=== PATIENT | male | born 1935 | race Caucasian/White ===

== ENCOUNTER → 2016-06-18 | Outpatient (CLI) | payer MEDICARE, OTHER ==
[~2016-06-18] VITALS: Ht 177.8 cm; Wt 108.9 kg
[~2016-06-18] MED LIST: /ESOM40CA; /ESOM40CA OR; ACET65TA OR; ALLO100T OR; ALLO10TA PO; ASPI81TA85 PO; BABY81CH PO; BRIM1OPD OS; CALC600T10; CALCIUM WITH VIT D PO; CEFU500T5; COMB0.2S OS; COMBIGAN OPTH OS; COMBIVENT; DORZ2SOL5 OS; DULCOLAX PO; DUONSOL NEB; FERR325T OR; FURO80TA2 PO; HUMA75IN2 SC; IBUP600T OR; IPRASOL4 INH; LASI40TA PO; LEVA500T PO; LEVO750T PO; LIDOCAINE 2% INJ 100 MG/5 ML SDV (FOR ANES.) As Ordered ONE; LOPR1TAB6 PO; MAG-TAB; METO-207 PO; METO50TA2 PO; MILKSUS OR; MILKSUS PO; MULTIVIT; NEXI40CA PO; NORCOTAB PO; NOVO70VL SC; NOVOINJ3 SC; NOVOLOG 70/30 SC; NS 1,000 ML IV SCH; NYAM10003 TOP; POLYSACCHARIDE IRON COMPLEX 150 MG; POTA10CA2; POTA10TA16 PO; PRAV40TA PO; PRAV40TA2 PO; PRED20TA; PROPOFOL 200 MG/20 ML VIAL As Ordered ONE; TOPROL XL PO; TORS100T PO; TYLE325T5 PO; VICO5TAB OR; XALA0.002 OS; XALATAN OU; ZYLO300T
--- NOTE | 2016-06-18 07:52 | ROOR ---
Patient Name: Siddhartha Gore Procedure Date: 06/18/2016 7:33 AM Date of : 1935 Age: 81 Room: [facility] Gender: Male Note Status: Finalized Procedure: Colonoscopy Indications: High risk colon cancer surveillance: Personal history of colon cancer Providers: Marc RUBIN MD Referring MD: GOPI SEO JR, MD Requesting Provider: Medicines: Monitored Anesthesia Care Complications: No immediate complications. Estimated blood loss: None. Procedure: Pre-Anesthesia Assessment: - The heart rate, respiratory rate, oxygen saturations, blood pressure, adequacy of pulmonary ventilation, and response to care were monitored throughout the procedure. The Colonoscope was introduced through the sigmoid colostomy and advanced to the cecum, identified by appendiceal orifice and ileocecal valve. The colonoscopy was performed without difficulty. The patient tolerated the procedure well. The quality of the bowel preparation was good. Findings: (EXAM: Complete, PREP:Adequate) Two sessile polyps were found in the hepatic flexure and ascending colon. The polyps were 3 to 5 mm in size. These polyps were removed with a cold snare. Resection and retrieval were complete. Multiple medium-mouthed diverticula were found at 30 cm proximal to the stoma. The exam was otherwise without abnormality. Impression: - Two 3 to 5 mm polyps at the hepatic flexure and in the ascending colon, removed with a cold snare. Resected and retrieved. - Diverticulosis in the area at 30 cm proximal to the stoma. - The examination was otherwise normal. Recommendation: - Repeat colonoscopy in 1 year for surveillance based on personal history of colon cancer. - (USE EGD SCOPE) Marc Rubin MD Marc RUBIN MD 06/18/2016 7:52:18 AM This report has been signed electronically. Number of Addenda: 0 Note Initiated On: 06/18/2016 7:33 AM Estimated Blood Loss: Estimated blood loss: none.
[2016-06-18 08:15] VITALS: BP 157/77
== END | disposition home or self-care (01) ==
LOC: M OPP 06:33
PROVIDERS: ATTEND Internal Medicine Gastroenterology
DX: Z08 Encounter for follow-up examination after completed treatment for malignant neoplasm (principal); Z85.038 Personal history of other malignant neoplasm of large intestine; D12.3 Benign neoplasm of transverse colon; D12.2 Benign neoplasm of ascending colon; K57.30 Diverticulosis of large intestine without perforation or abscess without bleeding; I10 Essential (primary) hypertension; E78.00 Pure hypercholesterolemia, unspecified; E11.9 Type 2 diabetes mellitus without complications; R12 Heartburn; M19.90 Unspecified osteoarthritis, unspecified site; N28.9 Disorder of kidney and ureter, unspecified; Z87.891 Personal history of nicotine dependence; Z79.899 Other long term (current) drug therapy; Z79.82 Long term (current) use of aspirin; Z79.4 Long term (current) use of insulin

== ENCOUNTER → 2016-12-18 | Outpatient (CLI) | payer MEDICARE, OTHER ==
[~2016-12-18] MED LIST changes: +LEVA1TAB2 PO; -LEVA500T PO; -LIDOCAINE 2% INJ 100 MG/5 ML SDV (FOR ANES.) As Ordered ONE; -METO-207 PO; +METO1TAB7 PO; -METO50TA2 PO; +METO50TA7 PO; -NS 1,000 ML IV SCH; -PROPOFOL 200 MG/20 ML VIAL As Ordered ONE; -XALA0.002 OS; +XALA0.007 OS
--- NOTE | 2016-12-18 10:41 | RADONC ---
RADIATION ONCOLOGY PROGRESS NOTE DATE: 12/18/2016 CHART NUMBER: [id number] DIAGNOSIS: Rectosigmoid cancer STAGE: II A, T3N0M0. ECOG PERFORMANCE STATUS: 0. FOLLOWUP NOTE: Mr. Gore is an 81-year-old white male with the diagnosis of a stage II A, T3N0M0, moderately differentiated adenocarcinoma of the rectosigmoid who is presenting to us today for followup visit almost 6 years post completion of external beam radiation therapy. The patient presents today reporting that he is being routinely followed with Dr. Ibarra and is undergoing colonoscopies on a routine basis through his office. He also reports no complaints at this time related to his radiation therapy or disease. He is having no urinary or bowel difficulties and no bone pain. REVIEW OF SYSTEMS: The patient's review of systems is noncontributory. Denies nausea, vomiting, fevers, chills, night sweats, diplopia, headaches, anxiety or depression, anorexia, weight loss, visual disturbances, chest pain, urinary or bowel difficulties, bone pain, or neurological problems. PHYSICAL EXAMINATION: The patient is a well-developed, well-nourished male in no acute distress. HEENT exam is normocephalic, atraumatic. Extraocular movements are intact. There is no palpable cervical, supraclavicular, infraclavicular, axillary, or inguinal lymphadenopathy present. Lungs are clear to auscultation and percussion. Heart has a regular rate and rhythm. Abdomen reveals no masses or discharge. His colostomy site is free of infection. Rectal examination reveals a normal anal sphincter tone. Skeletal examination reveals no tenderness to pressure or percussion of the bony skeleton. Extremities reveal no clubbing, cyanosis, or edema. Neurologic exam is grossly intact, as is the remainder of the physical examination. ASSESSMENT: The patient is clinically stable at this point. He is now 6 years post therapy and since he is being followed and managed so closely by Dr. Ibarra I am discharging from our followup except on a p.r.n. basis. cc: MD Shahana Bunn MD Collins Kellogg, Jr, MD David Reindl, MD MTDD
== END ==
LOC: M ONCR 09:43
PROVIDERS: ATTEND Radiology Radiation Oncology
DX: C19 Malignant neoplasm of rectosigmoid junction (principal)

== ENCOUNTER → 2017-04-16 | Outpatient (CLI) | payer MEDICARE, OTHER | LOC: M RAD 12:26 | DX: I87.312 Chronic venous hypertension (idiopathic) with ulcer of left lower extremity (principal) | CPT/HCPCS: 93971 ==

== ENCOUNTER 2017-05-16 11:43 | Emergency (ER) | payer MEDICARE, OTHER ==
[2017-05-16 13:27] LABS: HEMATOCRIT 43.1 % (42.0-52.0); MEAN CORPUSCULAR HEMOGLOBIN 31.4 pg (27.0-33.0); MEAN CORPUSCULAR HGB CONC 32.5 g/dl (32.0-36.5); MEAN CORPUSCULAR VOLUME 96.6 fl (80.0-96.0); PLATELET COUNT, AUTOMATED 122 10^3/uL (150-450); RED BLOOD COUNT 4.46 10^6/uL (4.30-6.10); RED CELL DISTRIBUTION WIDTH 13.6 % (11.5-14.5); WHITE BLOOD COUNT 5.4 10^3/uL (4.0-10.0)
[2017-05-16 13:39] LABS: TOTAL PROTEIN,RANDOM URINE 30.4 MG/DL (0.0-12.0)
[2017-05-16 13:55] LABS: ANION GAP 2 MEQ/L (8-16); BLOOD UREA NITROGEN 23 MG/DL (7-18); CALCIUM LEVEL 9.3 MG/DL (8.8-10.2); CARBON DIOXIDE LEVEL 36 MEQ/L (21-32); CHLORIDE LEVEL 103 MEQ/L (98-107); CPK CREATINE PHOSPHOKINASE 82 U/L (39-308); CREATININE FOR GFR 0.89 MG/DL (0.70-1.30); GLOMERULAR FILTRATION RATE > 60.0 (>35); GLUCOSE, FASTING 89 MG/DL (70-100); POTASSIUM SERUM 4.3 MEQ/L (3.5-5.1); SODIUM LEVEL 141 MEQ/L (136-145); TROPONIN I 0.02 NG/ML (< 0.10)
[2017-05-16 14:01] LABS: MB/CK RELATIVE INDEX 2.43 (< OR =4)
[2017-05-16] MEDS: cloNIDine 0.1 MG TAB PO (14:57)
== END 2017-05-16 15:02 | disposition home or self-care (01) ==
LOC: M ED 11:43
DX: I10 Essential (primary) hypertension (principal); R00.1 Bradycardia, unspecified; I44.0 Atrioventricular block, first degree; I45.10 Unspecified right bundle-branch block; E11.9 Type 2 diabetes mellitus without complications; N18.3 Chronic kidney disease, stage 3 (moderate); K21.9 Gastro-esophageal reflux disease without esophagitis; Z85.038 Personal history of other malignant neoplasm of large intestine; Z87.891 Personal history of nicotine dependence; Z79.82 Long term (current) use of aspirin; Z79.4 Long term (current) use of insulin; Z79.899 Other long term (current) drug therapy
CPT/HCPCS: 93005

== ENCOUNTER 2017-07-29 06:40 | Day surgery (SDC) | payer MEDICARE, OTHER ==
[2017-07-29] MEDS: NS 1,000 ML IV (07:30)
[2017-07-29 07:45] LABS: BEDSIDE GLUCOSE 94 MG/DL (83-110)
[2017-07-29] MEDS ORDERED: METOPROLOL SUCC *XL* 25MG TAB (TopROL *XL*) As Ordered (07:48)
[2017-07-29] MEDS ORDERED: PROPOFOL 200 MG/20 ML VIAL As Ordered (07:48)
[2017-07-29] MEDS ORDERED: LIDOCAINE 2% INJ 100 MG/5 ML SDV (FOR ANES.) As Ordered (07:48)
[2017-07-29] MEDS ORDERED: METOPROLOL SUCC (TopROL XL) 100MG *XL* TAB PO (08:00)
[2017-07-29] MEDS ORDERED: METOPROLOL TART 25 MG TABLET As Ordered (08:45)
[2017-07-29] MEDS: METOPROLOL SUCC *XL* 25MG TAB (TopROL *XL*) PO (08:52)
== END 2017-07-29 09:22 | disposition home or self-care (01) ==
LOC: M OPP 06:40
DX: Z08 Encounter for follow-up examination after completed treatment for malignant neoplasm (principal); Z85.038 Personal history of other malignant neoplasm of large intestine; Z86.010 Personal history of colon polyps; D12.0 Benign neoplasm of cecum; K57.30 Diverticulosis of large intestine without perforation or abscess without bleeding; I12.9 Hypertensive chronic kidney disease with stage 1 through stage 4 chronic kidney disease, or unspecified chronic kidney disease; E78.5 Hyperlipidemia, unspecified; R60.0 Localized edema; E11.9 Type 2 diabetes mellitus without complications; M10.9 Gout, unspecified; K21.9 Gastro-esophageal reflux disease without esophagitis; K22.70 Barrett's esophagus without dysplasia; D64.9 Anemia, unspecified; M19.90 Unspecified osteoarthritis, unspecified site; H40.9 Unspecified glaucoma; H35.30 Unspecified macular degeneration; F32.9 Major depressive disorder, single episode, unspecified; R56.9 Unspecified convulsions; Z93.3 Colostomy status; Z92.3 Personal history of irradiation; Z92.21 Personal history of antineoplastic chemotherapy; J45.909 Unspecified asthma, uncomplicated; G47.30 Sleep apnea, unspecified; N18.9 Chronic kidney disease, unspecified; N40.1 Benign prostatic hyperplasia with lower urinary tract symptoms; Z87.891 Personal history of nicotine dependence; Z79.82 Long term (current) use of aspirin; Z79.899 Other long term (current) drug therapy; Z79.4 Long term (current) use of insulin
CPT/HCPCS: 44389

== ENCOUNTER 2018-07-17 11:50 | Day surgery (SDC) | payer MEDICARE, OTHER ==
[~2018-07-17] VITALS: Ht 170.2 cm; Wt 111.1 kg
[~2018-07-17 11:50] MED LIST changes: -/ESOM40CA; -/ESOM40CA OR; +ALLO100T; +CALC600T57 PO; +CLON-412; +CLONI1TA PO; +IPRA0.00 INH; -IPRASOL4 INH; +KEFL500C17 PO; +LASI40TA9 PO; +LOSA50TA5; +LOSA50TA5 PO; +METO1TAB33; +MILK120011 PO; -MILKSUS PO; +NEXI1CAP3; +NEXI1CAP3 OR; +NEXI40CA; +NOVOINJ2; +POTA10TA16; +PRAV40TA2; +PREDOPD; +VITA200016 PO; +oxygen
[2018-07-17] MEDS ORDERED: NS 1,000 ML IV ONE (14:00)
[2018-07-17] MEDS ORDERED: fentaNYL 100 MCG/2 ML INJECTION (J3010) As Ordered ONE (14:46)
[2018-07-17] MEDS ORDERED: PROPOFOL 200 MG/20 ML VIAL As Ordered ONE (14:46)
[2018-07-17] MEDS ORDERED: LIDOCAINE 2% INJ 100 MG/5 ML SDV (FOR ANES.) As Ordered ONE (14:46)
--- NOTE | 2018-07-17 15:03 | ROOR ---
Patient Name: Siddhartha Gore Procedure Date: 07/17/2018 2:39 PM Date of : 1935 Age: 83 Room: [facility] Gender: Male Note Status: Finalized Procedure: Upper GI endoscopy Indications: Surveillance for malignancy due to personal history of Tong's esophagus Providers: Marc IBARRA MD Referring MD: GOPI SEO JR, MD Requesting Provider: Medicines: Monitored Anesthesia Care Complications: No immediate complications. Procedure: Pre-Anesthesia Assessment: - The heart rate, respiratory rate, oxygen saturations, blood pressure, adequacy of pulmonary ventilation, and response to care were monitored throughout the procedure. The Endoscope was introduced through the mouth, and advanced to the second part of duodenum. The upper GI endoscopy was accomplished without difficulty. The patient tolerated the procedure well. Findings: There were esophageal mucosal changes consistent with long-segment Tong's esophagus present in the lower third of the esophagus. The maximum longitudinal extent of these mucosal changes was 6 cm in length. Mucosa was biopsied with a cold forceps for histology randomly in the lower third of the esophagus and from 35 to 40 cm from the incisors. A total of 4 specimen bottles were sent to pathology. The exam was otherwise without abnormality. Impression: - Esophageal mucosal changes consistent with long-segment Tong's esophagus. Biopsied. - The examination was otherwise normal. Recommendation: - Telephone endoscopist for pathology results in 2 weeks. - Repeat upper endoscopy for surveillance based on pathology results. - Repeat upper endoscopy in 3 years for surveillance. - Continue present medications. Marc Ibarra MD Marc IBARRA MD 07/17/2018 3:02:38 PM Electronically signed by Marc IBARRA MD Number of Addenda: 0 Note Initiated On: 07/17/2018 2:39 PM Estimated Blood Loss: Estimated blood loss: none.
[2018-07-17 15:23] VITALS: BP 162/94
== END 2018-07-17 15:25 | disposition home or self-care (01) ==
LOC: M OPP 11:50
PROVIDERS: ATTEND Internal Medicine Gastroenterology
DX: K22.70 Barrett's esophagus without dysplasia (principal); K21.9 Gastro-esophageal reflux disease without esophagitis; G47.30 Sleep apnea, unspecified; Z79.82 Long term (current) use of aspirin; Z79.4 Long term (current) use of insulin; Z79.899 Other long term (current) drug therapy
CPT/HCPCS: 43239; 88305; J3010

== ENCOUNTER 2019-04-11 10:53 | Inpatient (IN) | payer MEDICARE, OTHER ==
[~2019-04-11] VITALS: Ht 172.7 cm; Wt 108.1 kg
[~2019-04-11 10:53] MED LIST changes: +PANTOPRAZOLE 40MG INJ (PROTONIX) (C9113) IV SCH
[2019-04-11] MEDS ORDERED: TORS100T PO (11:15)
[2019-04-11] MEDS ORDERED: METO1TAB33 PO (11:15)
[2019-04-11] MEDS ORDERED: K-TA10TA2 PO (11:25)
[2019-04-11 11:28] LABS: HEMOGLOBIN 17.1 g/dl (13.5-17.5); MEAN CORPUSCULAR HEMOGLOBIN 30.5 pg (27.0-33.0); MEAN CORPUSCULAR HGB CONC 32.3 g/dl (32.0-36.5); MEAN CORPUSCULAR VOLUME 94.6 fl (80.0-96.0); PLATELET COUNT, AUTOMATED 221 10^3/uL (150-450); WHITE BLOOD COUNT 7.7 10^3/uL (4.0-10.0)
[2019-04-11] MEDS ORDERED: NS 500 ML IV ONE ×2 (11:45→12:45)
[2019-04-11] MEDS ORDERED: ONDANSETRON 4MG/2ML VIAL (J2405) IV ONE (11:45)
[2019-04-11 11:57] LABS: LYMPHOCYTES 18 % (16-44); MONOCYTES 12 % (0-5); NEUTROPHILS 60 % (28-66); PLATELET ESTIMATE NORMAL (NORMAL)
[2019-04-11 11:58] LABS: ANISOCYTOSIS 1+
[2019-04-11 12:05] LABS: ALBUMIN 3.4 GM/DL (3.2-5.2); BILIRUBIN,DIRECT 0.3 MG/DL (0.0-0.2); MB/CK RELATIVE INDEX 5.69 (< OR =4); TOTAL PROTEIN 7.6 GM/DL (6.4-8.2); TROPONIN I 0.38 NG/ML (< 0.10)
--- NOTE | 2019-04-11 14:55 | REP ---
CT ABDOMEN AND PELVIS WITHOUT CONTRAST: CT abdomen and pelvis performed without oral or IV contrast. Sagittal and coronal reconstruction images are performed. Comparison made with prior study 08/09/2014. Visualized lung bases demonstrate mild interstitial fibrotic change. There is a stable cyst at the dome of the liver on the right. Gallbladder is mild to moderately distended with no wall edema. I do not see evidence of biliary dilatation. Spleen is normal in size with no intrinsic abnormality. Left adrenal adenoma is unchanged. Right adrenal gland is normal. Pancreas is grossly unremarkable. Multiple bilateral renal cysts are again noted, largest cysts are on the right reaching a maximum diameter of about 11 cm. There is no hydronephrosis bilaterally. Urinary bladder is mildly distended and grossly unremarkable except for a diverticulum on the left. There is mild atherosclerotic calcification of the abdominal aorta without aneurysm. No adenopathy, free air, or free fluid is seen. Right ostomy is seen in the anterior abdominal wall and there is a parastomal hernia. There is small bowel obstruction at that level. Proximal small bowel is moderately dilated with fair and fluid. Distal small bowel is collapsed. No bowel wall thickening is seen. Focal fibrotic scarring is seen at the inferior aspect of the ostomy and hernia. The hernia contains fat and collapsed small bowel. It also contains exiting nondistended colon. Presacral soft tissue is unchanged when compared to the prior CT exam. There are degenerative changes of the spine. IMPRESSION: Right anterior abdominal wall ostomy contains a hernia. The hernia contains fat and nondistended small bowel. There is small bowel obstruction at that point with more proximal small bowel loops moderately distended. No free air or free fluid. Other chronic findings as discussed above are stable. Electronically Signed by aXvier Chen MD 04/12/2019 05:52 P
[2019-04-11] MEDS: NS 500 ML IV ONE ×2 (15:08→15:09)
[2019-04-11] MEDS ORDERED: CLONI1TA PO (15:20)
[2019-04-11] MEDS ORDERED: IPRATROPIUM 0.5MG/ALBUTEROL 2.5MG INH SOL UD 3ML (DUONEB)(J7620) INH PRN (15:45)
[2019-04-11] MEDS ORDERED: ONDANSETRON 4MG/2ML VIAL (J2405) IV PRN (15:45)
--- NOTE | 2019-04-11 15:56 | HPEPDOC ---
General Date of Admission 04/11/19 Date of Service: Apr 11, 2019 Chief Complaint The patient is a 83-year-old male admitted with a reason for visit of Abdominal Bloating. Source: Patient Exam Limitations: No limitations Timing/Duration: Other Severity: Severe Associated Symptoms: Other History of Present Illness This is 83 years old white male with past medical history of rectal carcinoma status post chemotherapy, status post abdominal perineal resection, diabetes mellitus, COPD, hyperlipidemia, hypertension, anemia, asthma, PAD, obesity, urethral structure. Diastolic heart failure. C KD stage III, alcohol, tobacco abuse in the past, GERD, gout, LIANNA on CPAP, cataracts parastomal hernia status post repair has not been feeling well since last 5 days and has not eaten anything since last 5 days. He just feels bloating. Today, he started vomiting, black tarry emesis and was brought to ER where he was diagnosed with possible SBO secondary to parastomal hernia. Also, patient was found to be in atrial afibrillation, which is new onset. Patient denies any chest pain, shortness of breath, syncope, dizziness, etc. Home Medications Scheduled Allopurinol (Allopurinol) 100 Mg Tab, 100 MG PO BID, (Reported) Aspirin (Aspir 81) 81 Mg Tab, 81 MG PO DAILY, (Reported) Calcium Carbonate/Vitamin D3 (Calcium 600-Vit D3 200 Tablet) 1 Tab Tab, 1 TAB PO DAILY, (Reported) Clonidine Hcl (Clonidine HCl) 0.1 Mg Tablet, 0.1 MG PO BID, (Reported) Esomeprazole Magnesium (Nexium) 40 Mg Cap, 40 MG PO DAILY, (Reported) Metoprolol Succinate (Metoprolol Succinate) 100 Mg Tab.er.24h, 150 MG PO DAILY, (Reported) Potassium Chloride (K-Tab ER) 10 Meq Tablet.er, 10 MEQ PO DAILY, (Reported) Pravastatin Sodium (Pravastatin Sodium) 40 Mg Tab, 40 MG PO QHS, (Reported) Torsemide (Torsemide) 100 Mg Tablet, 50 MG PO DAILY, (Reported) Scheduled PRN Ipratropium/Albuterol Sulfate (Iprat-Albut 0.5-3(2.5) mg/3 ml) 1 Franklyn Franklyn, 1 FRANKLYN INH QIDP PRN for SHORTNESS OF BREATH, (Reported) Allergies Coded Allergies: No Known Allergies (Unverified , 07/16/18) Past Medical History Medical History Rectal carcinoma status post chemotherapy and abdominal and perineal resection, diabetes mellitus insulin-dependent, COPD, hyperlipidemia, hypertension, anemia, asthma, PAD, obesity, urethra structure chronic diastolic heart failure. 6. CK D, stage III. Tobacco dependence, history of alcohol abuse, glaucoma, GERD, gout, obstructive sleep apnea on CPAP, cataracts, parastomal hernia status post repair Surgical History Abdominal perineal resection with right-sided his ostomy in 2012. Tonsillectomy. Ostomy hernia repair, cataract surgeries and right sided inguinal hernia repair Family History Significant Family History: No pertinent family hx Social History * Smoker: former Smoker Alcohol: other (heavy drinker in the past) Drugs: denies A-FIB/CHADSVASC A-FIB History Current/History of A-Fib/PAF?: Yes Current PO Anticoag Therapy: No Review of Systems Constitutional: Denies: Chills, Fever, Malaise, Night Sweats, Weakness, Fatigue, Weight Loss, Lethargy, Other Eyes: Denies: Pain, Vision change, Conjunctivae inflammation, Eyelid inflammation, Redness, Other ENT: Denies: Head Aches, Ear Pain, Dysphagia Skin: Denies: Rash, Lesions, Jaundice, Bruising, Itching, Dry, Breakdown, Nail Changes, Other Pulmonary: Denies: Dyspnea, Cough, Pleuritic Chest Pain, Other Symptoms Cardiovascular: Denies: Chest Pain, Palpitations, Orthopnea, Paroxysmal Noc. Dyspnea, Edema, Lt Headedness, Other Symptoms Gastrointestinal: Reports: Vomiting, Other Symptoms (. Coffee ground emesis) Genitourinary: Denies: Dysuria, Frequency, Incontinence, Hematuria, Retention, Other Symptoms Hematologic: Denies: Bruising, Bleeding Excessively, Petecchia, Purpura, Enlarged Lymph Nodes, Other Hematologic Endocrine: Denies: Polydipsia, Polyphagia, Polyuria, Heat Intolerance, Cold Intolerance, Other Endocrine Sx Musculoskeletal: Denies: Neck Pain, Back Pain, Shoulder Pain, Arm Pain, Hand Pain, Leg Pain, Foot Pain, Joint Pain, Muscle Pain, Spasms, Other Symptoms Neurological: Denies: Weakness, Numbness, Incoordination, Change in speech, Confusion, Seizures, Other Symptoms Psych: Denies: Mood Normal, Anxiety, Depression, Memory Issues, Thoughts of Self Harm, Anger, Thoughts of Harming Other, Other Psych Physical Examination General Exam: Positive: Alert, Cooperative Eye Exam: Positive: PERRLA, Conjunctiva & lids normal ENT Exam: Positive: Atraumatic, Mucous membr. moist/pink Neck Exam: Positive: Supple Chest Exam: Positive: Clear to auscultation, Normal air movement Heart Exam: Positive: Tachycardic, Irregular Rhythm Telemetry: Positive: Atrial fibrillation Abdomen Exam: Positive: Other (distended abdomen. Tenderness on ostomy. Bowel sounds present, probably stool in ostomy seen) Extremity Exam: Positive: Normal pulses, Other (chronic discoloration of bilateral lower extremities) Skin Exam: Positive: Nl turgor and temperature Neuro Exam: Positive: Other (, mostly all extremities) Psych Exam: Positive: Mental status NL, Mood NL Vital Signs Vital Signs Date Time Temp Pulse Resp B/P (MAP) Pulse Ox O2 Delivery O2 Flow Rate FiO2 04/11/19 15:00 129 86/54 (65) 94 Nasal Cannula 4.0 04/11/19 13:30 18 04/11/19 11:04 99.2 Laboratory Data Labs 24H Laboratory Tests 2 04/11/19 11:18: Nucleated Red Blood Cells % (auto) 0.0, Neutrophils 60, Band Neutrophils 10, Lymphocytes (Manual) 18, Monocytes (Manual) 12H, Anisocytosis 1+, Platelet Estimate NORMAL, Total Bilirubin 1.0, Direct Bilirubin 0.3H, Aspartate Amino Transf (AST/SGOT) 19, Alanine Aminotransferase (ALT/SGPT) 17, Alkaline Phosphatase 57, Total Creatine Kinase 123, Creatine Kinase MB 7.0H, Creatine Kinase MB Relative Index 5.69H, Troponin I 0.38H, Total Protein 7.6, Albumin 3.4, Albumin/Globulin Ratio 0.81L, Lipase 73 04/11/19 11:20: POC Glucose (Misc Panel) 144H, POC Sodium (Misc Panel) 138, POC Potassium (Misc Panel) 3.1L, POC Chloride (Misc Panel) 90L, POC Total CO2 (Misc Panel) 31.0H, POC Blood Urea Nitrogen (Misc Panel 61H, POC Ionized Calcium (Misc Panel) 4.2L, POC Creatinine (Misc Panel) 3.2H, POC Hematocrit (Misc Panel) 54.0H 04/11/19 12:11: Lactic Acid Level 1.9 CBC/BMP Laboratory Tests 04/11/19 11:18 Problems (1) SBO (small bowel obstruction) Status: Acute Problem Text: CAT scan of the abdomen and pelvis shows right atrial abdominal wall ostomy with hernia hernia contents effect and nondistended small bowel. Small bowel obstruction at the point with more proximal small bowel loops moderately distended. No free air. Patient. WBC count 7.7, hemoglobin 17.1, hematocrit 53. Electrolytes are normal except potassium is 3.1, BUN 61, creatinine 3.20, troponin 0.38. Lactic acid is 1.9, direct bilirubin 0.0 0.3, troponin 0.38 , Heart rate 123, respiratory rate of 18, and blood pressure 99/54 Admit patient to ICU for close observation nothing by mouth Bed rest IV fluids normal saline at 70 mL per hour Protonix 40 mg IV every 12 hours Surgical consult was called from ED, Dr. Myers of aware Continue NG suctioning as to intermittent wall suction Further, as per surgical recommendations DVT prophylaxis with bilateral SCDs as patient might require surgery (2) New onset atrial fibrillation Status: Acute Problem Text: Since patient is hypotensive. He did get receive some IV fluids in ED and will start gentle hydration with normal saline 70 mL per hour Unable to start beta terri or calcium channel terri secondary to his hypertension and cannot restart digitalization secondary to renal failure Will start patient on amiodarone with loading dose of 150 mg followed by IV protocol for maintenance for 24 hours Telemetry monitoring Intake and output Serial troponins Echocardiogram Dr. Farnsworth was called from ED for consultation and he is aware Note patient not a candidate for anticoagulation secondary to possible tarry color emesis secondary to possible GI bleed and also recommended by cardiology to wait 24 hours before deciding about anticoagulation (3) Hypokalemia Status: Acute Problem Text: Potassium supplement will be provided by IV route Repeat electrolytes in a.m. (4) Acute kidney injury superimposed on CKD Status: Acute Problem Text: Acute kidney injury on CK D, stage III Patient's BUN is 61, creatinine 3.2 Gentle IV hydration Will request nephrology consult in a.m. Plan / VTE VTE Prophylaxis Ordered?: Yes SEBAS CATES MD Apr 11, 2019 15:56
[2019-04-11] MEDS ORDERED: GLUCOSE 4 GM CHEW TABLET PO PRN (16:00)
[2019-04-11] MEDS ORDERED: DEXTROSE 50% 50 ML SYRINGE IV PRN (16:00)
[2019-04-11] MEDS ORDERED: NS 1,000 ML IV SCH (16:00)
[2019-04-11] MEDS ORDERED: GLUCAGON FOR INJ 1 MG VIAL (J1610) SC PRN (16:00)
[2019-04-11] MEDS ORDERED: AMIODARONE HCL 150 MG in IV 1 EA IV SCH (16:00)
[2019-04-11] MEDS ORDERED: AMIODARONE HCL 360 MG in IV 1 EA IV SCH (16:10)
[2019-04-11 16:13] LABS: MAGNESIUM LEVEL 1.9 MG/DL (1.8-2.4)
[2019-04-11 16:45] VITALS: BP 138/66
[2019-04-11] MEDS: KCL 10MEQ/100ML SWI (KRUN) 10 MEQ in IV 1 EA IV SCH ×2 (16:49→20:17)
[2019-04-11] MEDS: HumaLOG INSULIN (NovoLOG) PER UNIT SC SCH (18:00)
[2019-04-11 18:45] VITALS: BP 108/53
[2019-04-11] MEDS: PANTOPRAZOLE 40MG INJ (PROTONIX) (C9113) IV SCH (20:17)
[2019-04-11 20:22] VITALS: BP 114/65
--- NOTE | 2019-04-11 20:43 | ECGEPIP ---
[facility] - ED Test Date: 2019-04-11 Pat Name: KIESHA CH Department: Room: - Gender: Male Certified Medicine Aide: : 1935 Requested By: Cholo Ayon Order Number: [id number] Reading MD: Lisette Daley Measurements Intervals [place] Rate: 128 P: AK: 0 QRS: 38 QRSD: 129 T: 39 QT: 348 QTc: 508 Interpretive Statements ATRIAL FIBRILLATION WITH RAPID VENTRICULAR RESPONSE RIGHT BUNDLE BRANCH BLOCK ST DEPRESSION, CONSIDER SUBENDOCARDIAL INJURY CLINICAL CORRELATION 05/16/17 SINUS RHYTHM Electronically Signed on 04-11-2019 20:43:28 EST by Lisette Daley
[2019-04-11 21:00] VITALS: BP 92/51
[2019-04-11] MEDS: AMIODARONE HCL 360 MG in IV 1 EA IV SCH (21:44)
[2019-04-11 22:00] VITALS: BP 104/68
[2019-04-11 23:09] VITALS: BP 130/62
[2019-04-12] VITALS (23 sets, daily range): BP systolic 91–136; BP diastolic 50–82
[2019-04-12 05:03] LABS: HEMATOCRIT 47.3 % (42.0-52.0); HEMOGLOBIN 15.5 g/dl (13.5-17.5); MEAN CORPUSCULAR HEMOGLOBIN 31.3 pg (27.0-33.0); MEAN CORPUSCULAR HGB CONC 32.8 g/dl (32.0-36.5); MEAN CORPUSCULAR VOLUME 95.4 fl (80.0-96.0); PLATELET COUNT, AUTOMATED 180 10^3/uL (150-450); RED BLOOD COUNT 4.96 10^6/uL (4.30-6.10); WHITE BLOOD COUNT 7.4 10^3/uL (4.0-10.0)
[2019-04-12 05:32] LABS: ALBUMIN 2.6 GM/DL (3.2-5.2); BILIRUBIN,TOTAL 0.5 MG/DL (0.2-1.0); CALCIUM LEVEL 8.3 MG/DL (8.8-10.2); CREATININE FOR GFR 2.95 MG/DL (0.70-1.30); GLOMERULAR FILTRATION RATE 21.9 (>35); TOTAL PROTEIN 6.8 GM/DL (6.4-8.2); TROPONIN I 0.48 NG/ML (< 0.10)
[2019-04-12] MEDS: HumaLOG INSULIN (NovoLOG) PER UNIT SC SCH ×4 (05:45→17:56)
[2019-04-12] MEDS ORDERED: KCL 40MEQ in NS 1000ML 1,000 ML IV SCH (06:15)
[2019-04-12] MEDS: KCL 10MEQ/100ML SWI (KRUN) 10 MEQ in IV 1 EA IV SCH ×4 (07:50→20:11)
[2019-04-12] MEDS: PANTOPRAZOLE 40MG INJ (PROTONIX) (C9113) IV SCH ×2 (07:50→20:11)
[2019-04-12] MEDS ORDERED: NS 1,000 ML IV SCH (08:00)
[2019-04-12] MEDS: METOPROLOL 5 MG/5 ML VIAL IV SCH ×3 (08:27→20:10)
[2019-04-12] MEDS: AMIODARONE HCL 360 MG in IV 1 EA IV SCH (08:55)
--- NOTE | 2019-04-12 09:23 | CR ---
DATE OF CONSULTATION: 04/12/2019 INDICATION: Atrial fibrillation with rapid ventricular response, elevated troponin. HISTORY OF PRESENT ILLNESS: Mr. Gore is an 83-year-old man who has no prior history of atrial fibrillation or coronary artery disease who presented to [facility] ([facility]) yesterday after approximately 4 or 5 days history of abdominal bloating, nausea and vomiting. It turned out that there is evidence for small bowel obstruction with parastomal hernia, he has a colostomy after treatment for rectal carcinoma several years ago. Besides bowel obstruction, he was also found to be in atrial fibrillation with rapid ventricular response and was quite tachycardic on admission to the emergency room (ER). He was initially treated mostly with rehydration because he was felt to be in also in acute renal failure, likely prerenal in nature. His heart rate came down a little, but eventually he was started on IV amiodarone by Dr. Farr in an attempt to accomplish better rate control. It was felt that he would not tolerate beta-blockers or calcium channel blockers and digoxin was not felt to be a good option on account of underlying renal insufficiency. He did well and this morning he tells me is feeling better. He has a nasogastric (NG) tube placed that has been draining stomach contents and he feels overall better. The abdominal bloating is no longer present. He denies any dyspnea and he claims that he never had any sensation of palpitations and he never had any chest discomfort. He reports that he was seen by his primary care physician Dr. Maher approximately 3 to 4 weeks ago and to the best of his understanding he was fine. There was no mentioning about problems with his heart rate. PAST MEDICAL HISTORY: 1. History of rectal carcinoma status post abdominoperineal resection of rectum with chemotherapy. 2. Type 2 diabetes. 3. Chronic obstructive pulmonary disease (COPD). 4. Hyperlipidemia. 5. Hypertension. 6. Peripheral artery disease (PAD). 7. Obesity. 8. Chronic renal insufficiency. 9. Gastroesophageal reflux disease (GERD). 10. Gout. 11. Obstructive sleep apnea (LIANNA) on C-PAP. PAST SURGICAL HISTORY: 1. Rectal surgery with additional abdominal surgery dealing with the ostomy. 2. Tonsillectomy. 3. Bilateral cataract surgery. 4. Right-sided inguinal hernia repair. FAMILY HISTORY: Father of cancer, the patient is not sure about what kind. His mother of old age after trauma in her late 90s. ALLERGIES: No allergies. OUTPATIENT MEDICATIONS: Allopurinol 100 twice a day, aspirin 81 a day, calcium with vitamin D, clonidine 0.1 mg twice a day, Nexium 40 mg a day, metoprolol succinate 150 mg a day, potassium 10 mEq a day, pravastatin 40 mg a day, and torsemide 50 mg a day. SOCIAL HISTORY: The patient is a former smoker. He believes that he quit about 6-7 years ago, but smoked about 50 years about a pack a day. He reports history of heavy alcohol in the past, but has not drank in quite a few years. 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 No drug use. REVIEW OF SYSTEMS: He denies any recent fever or chills. He had nausea abd vomiting for several days above. No chest pain. No palpitations. No dizziness or near/syncope. No chest pain. No prior history of coronary artery disease. No peripheral edema lately. The rest of review of systems is negative. PHYSICAL EXAMINATION: Mr. Gore is an elderly man who appears to be in good spirits, lying flat in the hospital bed in no distress. Last set of vital signs with blood pressure 128/82. Heart rate has been around 100 and 110s. Atrial fibrillation. He is afebrile. Saturation 96% on 3 liters of oxygen by nasal cannula. He has a nasogastric tube in place that is draining stomach contents. Weight was recorded as 104 kg. He is alert, oriented and appropriate. His jugular venous pulse (JVP) is not high. Lungs are clear. Good air movement. I would do not appreciate wheezing, crackles or rhonchi. Heart exam reveals irregularly irregular rhythm. I do not appreciate any gallop, rub or murmur. Abdomen is distended but soft. There is an ostomy in the right lower quadrant. Bowel sounds are present. Extremities are free of edema. There is very prominent stasis dermatitis on both shins. Peripheral edema is minimal. Peripheral pulses are detectable. LABORATORIES: As of this morning, sodium 142, potassium 3.0, BUN 79, creatinine 2.95, GFR 22, glucose 114, magnesium 2.0. He had three sets of troponins - 0.38, 0.53 and 0.48. CK was 123. There was no chest x-ray performed. The CT of the abdomen revealed findings as dictated above. ECG performed in the emergency room reveals atrial fibrillation with ventricular rate of 128 beats per minute. There is right bundle branch block with repolarization abnormalities that are rather diffuse. ASSESSMENT/PLAN: Mr. Gore is an 84-year-old man who has no prior history of atrial fibrillation or coronary artery disease who presents with bowel obstruction. Simultaneously, he was found to have acute renal failure which is almost certainly due to prerenal cause and atrial fibrillation with RVR. He was given amiodarone that led to slowing down his heart rate to about 110's. But unfortunately because of the duration of the arrhythmia is uncertain and he conceivably may convert into sinus rhythm and he has not been anticoagulated I believe it is probably better to discontinue the medication and attempt rate control with beta blockers only. We are somewhat limited by the inability to take oral medications and consequently I will give him Lopressor intravenously every 6 hours. It is certainly not optimal. If we have trouble I would still use digoxin, even for a short run, but in the long duration it is certainly not a good option. I am going to give him Lovenox as once a day dosing, approximately 0.75 mg/kg to provide some form of anticoagulation. I do not believe that we can provide him with any longer acting anticoagulants because there is still a potential for needing surgery, even though from surgical perspective I believe they plan to treat him conservatively. Overall, I am hoping that he will improve fairly rapidly. Echocardiogram is pending. Second cardiac issue is troponin elevation. It is probably on account of the renal insufficiency and tachycardia. He has no anginal symptoms, but will get a followup electrocardiogram and follow him clinically. MARLA
[2019-04-12] MEDS ORDERED: ENOXAPARIN 80 MG/0.8 ML SYRINGE (J1650) SC SCH (10:00)
--- NOTE | 2019-04-12 10:21 | IPNPDOC ---
Subjective Date Seen The patient was seen on 04/12/19. Subjective Chief Complaint/HPI Slightly better. Distal has a nasogastric tube in, abdominal pain is slightly decreased General: Denies: ROS Unobtainable, Chills, Night Sweats, Fatigue, Malaise, Normal Appetite, Other Symptoms Constitutional: Denies: Chills, Fever, Malaise, Night Sweats, Weakness, Fatigue, Weight Loss, Lethargy, Other Eyes: Denies: Pain, Vision change, Conjunctivae inflammation, Eyelid infla mmation, Redness, Other ENT: Denies: Head Aches, Ear Pain, Dysphagia, Sinus Congestion, Post Nasal Drip, Sore Throat, Epistaxis, Other Symptoms Skin: Denies: Rash, Lesions, Jaundice, Bruising, Itching, Dry, Breakdown, Nail Changes, Other Pulmonary: Denies: Dyspnea, Cough, Pleuritic Chest Pain, Other Symptoms Cardiovascular: Denies: Chest Pain, Palpitations, Orthopnea, Paroxysmal Noc. Dyspnea, Edema, Lt Headedness, Other Symptoms Gastrointestinal: Reports: Abdominal Pain Genitourinary: Denies: Dysuria, Frequency, Incontinence, Hematuria, Retention, Other Symptoms Hematologic: Denies: Bruising, Bleeding Excessively, Petecchia, Purpura, Enla rged Lymph Nodes, Other Hematologic Endocrine: Denies: Polydipsia, Polyphagia, Polyuria, Heat Intolerance, Cold Intolerance, Other Endocrine Sx Musculoskeletal: Denies: Neck Pain, Back Pain, Shoulder Pain, Arm Pain, Hand Pain, Leg Pain, Foot Pain, Joint Pain, Muscle Pain, Spasms, Other Symptoms Neurological: Denies: Weakness, Numbness, Incoordination, Change in speech, Confusion, Seizures, Other Symptoms Psych: Denies: Mood Normal, Anxiety, Depression, Memory Issues, Thoughts of Self Harm, Anger, Thoughts of Harming Other, Other Psych Objective Physical Examination Neck Exam: Positive: Supple Chest Exam: Positive: Clear to auscultation, Normal air movement Heart Exam: Positive: Tachycardic, Irregular Rhythm Telemetry: Positive: Atrial fibrillation Abdomen Exam: Positive: Other (distended abdomen. Tenderness on ostomy. Bowel sounds present, probably stool in ostomy seen) Extremity Exam: Positive: Normal pulses, Other (chronic discoloration of bilateral lower extremities) Skin Exam: Positive: Nl turgor and temperature Neuro Exam: Positive: Other (, mostly all extremities) Psych Exam: Positive: Mental status NL, Mood NL Assessment /Plan Problems (1) New onset atrial fibrillation Status: Acute Problem Text: Patient was seen by Dr gonsales today His heart rate has decreased with amiodarone, but is still in 110s Amiodarone was DC'd , He is been started on beta blockers, metoprolol 25mg 6 hours with good ventricular rate control Anticoagulation with Lovenox 0.75 mg/kg every 24 hours started as per cardiology recommendation Patient is nothing by mouth secondary to his by mouth. Will change meds to by mouth once he is surgically cleared Continue present care (2) Acute kidney injury superimposed on CKD Status: Acute Problem Text: Patient with history of CKD. 3. He presents with acute kidney injury Gentle IV hydration Potassium replacement done Nephrology consult has been requested (3) Hypokalemia Status: Acute Problem Text: Corrected today Repeat lab at 2 PM (4) SBO (small bowel obstruction) Status: Acute Problem Text: Patient is nothing by mouth and is nothing by mouth NG tube in place Surgical consult is pending Further recommendation as per surgery Plan/VTE VTE Prophylaxis Ordered?: Yes VS, I&O, 24H, Fishbone Vital Signs/I&O Vital Signs Date Time Temp Pulse Resp B/P (MAP) Pulse Ox O2 Delivery O2 Flow Rate FiO2 04/12/19 09:44 98 109/64 (79) 95 Nasal Cannula 2.0 04/12/19 08:00 98.2 18 I&O- Last 24 Hours up to 6 AM 04/12/19 05:59 Intake Total 2214 ml Output Total 3675 ml Balance -1461 ml Laboratory Data 24H LABS Laboratory Tests 2 04/11/19 11:18: Nucleated Red Blood Cells % (auto) 0.0, Neutrophils 60, Band Neutrophils 10, Lymphocytes (Manual) 18, Monocytes (Manual) 12H, Anisocytosis 1+, Platelet Estimate NORMAL, Magnesium Level 1.9, Total Bilirubin 1.0, Direct Bilirubin 0.3H, Aspartate Amino Transf (AST/SGOT) 19, Alanine Aminotransferase (ALT/SGPT) 17, Alkaline Phosphatase 57, Total Creatine Kinase 123, Creatine Kinase MB 7.0H, Creatine Kinase MB Relative Index 5.69H, Troponin I 0.38H, Total Protein 7.6, Albumin 3.4, Albumin/Globulin Ratio 0.81L, Lipase 73 04/11/19 11:20: POC Glucose (Misc Panel) 144H, POC Sodium (Misc Panel) 138, POC Potassium (Misc Panel) 3.1L, POC Chloride (Misc Panel) 90L, POC Total CO2 (Misc Panel) 31.0H, POC Blood Urea Nitrogen (Misc Panel 61H, POC Ionized Calcium (Misc Panel) 4.2L, POC Creatinine (Misc Panel) 3.2H, POC Hematocrit (Misc Panel) 54.0H 04/11/19 12:11: Lactic Acid Level 1.9 04/11/19 18:00: Bedside Glucose (Misc Panel) 143H 04/11/19 19:50: Troponin I 0.53#H 04/11/19 23:40: Bedside Glucose (Misc Panel) 113H 04/12/19 04:49: Troponin I 0.48H, Nucleated Red Blood Cells % (auto) 0.0, Anion Gap 13, Glomerular Filtration Rate 21.9L, Calcium Level 8.3L, Magnesium Level 2.0, Total Bilirubin 0.5, Aspartate Amino Transf (AST/SGOT) 19, Alanine Aminotransferase (ALT/SGPT) 13, Alkaline Phosphatase 43L, Total Protein 6.8, Albumin 2.6#L, Albumin/Globulin Ratio 0.62L CBC/BMP Laboratory Tests 04/11/19 11:18 04/12/19 04:49 SEBAS CATES MD Apr 12, 2019 10:21
[2019-04-12] MEDS: ENOXAPARIN 80 MG/0.8 ML SYRINGE (J1650) SC SCH (11:45)
[2019-04-12] MEDS: KCL 20MEQ in NS 1000ML 1,000 ML IV SCH (13:04)
[2019-04-12 14:19] LABS: AMORPHOUS SEDIMENT MODERATE (NEGATIVE); APPEARANCE, URINE CLEAR (CLEAR); BACTERIA, URINE AUTO NEGATIVE (NEGATIVE); BILIRUBIN, URINE AUTO NEGATIVE (NEGATIVE); BLOOD, URINE BLOOD NEGATIVE (NEGATIVE); COLOR, URINE AMBER (YELLOW); GLUCOSE, URINE (UA) AUTO NEGATIVE (NEGATIVE); KETONE, URINE AUTO TRACE mg/dL (NEGATIVE); LEUKOCYTE ESTERASE, URINE AUTO 1+ (NEGATIVE); NITRITE, URINE AUTO NEGATIVE (NEGATIVE); PROTEIN, URINE AUTO NEGATIVE (NEGATIVE); RBC, URINE AUTO 2 /HPF (0-3); SPECIFIC GRAVITY URINE AUTO 1.024 (1.002-1.035); SQUAMOUS EPITHELIAL CELL UR AU 1 /HPF (0-6); UROBILINOGEN, URINE AUTO 0.2 mg/dL (0.0-2.0); WBC, URINE AUTO 9 /HPF (0-3)
[2019-04-12 16:37] LABS: ALBUMIN 2.7 GM/DL (3.2-5.2); CALCIUM LEVEL 8.3 MG/DL (8.8-10.2); CREATININE FOR GFR 2.32 MG/DL (0.70-1.30); GLOMERULAR FILTRATION RATE 28.8 (>35); PHOSPHORUS LEVEL 3.2 MG/DL (2.5-4.9); POTASSIUM SERUM 3.3 MEQ/L (3.5-5.1)
--- NOTE | 2019-04-12 20:10 | CR ---
DATE OF CONSULTATION: 04/12/2019 CONSULTATION REPORT FOR: Ammon Farr MD REASON FOR CONSULTATION: Acute renal failure superimposed on chronic kidney disease. HISTORY OF PRESENT ILLNESS: Mr. Gore is an 83-year-old gentleman who was admitted to [facility] last evening due to recurrent vomiting for the last three days. His multiple chronic medical problems include a history of hypertension, gout, prior history of rectal carcinoma status post chemotherapy and resection. He has a colostomy. Other problems include type 2 diabetes, chronic obstructive pulmonary disease (COPD), hyperlipidemia, anemia, asthma, peripheral arterial disease, obesity, urethral stricture and diastolic congestive heart failure. He was noticed to have a small-bowel obstruction due to parastomal hernia and is currently being treated with nasogastric (NG) tube suctioning. The patient was also noticed to have atrial fibrillation with rapid ventricular rate and was treated with intravenous amiodarone. He is noticed to have acute renal failure, due to which a nephrology consultation was requested and the patient is seen this morning on his bedside. PAST MEDICAL AND SURGICAL HISTORY: Significant for: 1. History of type 2 diabetes. 2. Hypertension. 3. Hyperlipidemia. 4. History of rectal carcinoma, status post abdominoperineal resection and colostomy. 5. History of urethral stricture. 6. History of peripheral arterial disease. 7. Anemia. 8. Asthma. 9. Obesity. 10. History of chronic diastolic congestive heart failure. 11. History of gastroesophageal reflux disease. 12. History of glaucoma. 13. History of gout. 14. Obstructive sleep apnea. 15. History of parastomal hernia. 16. History of cataracts. PAST SURGICAL HISTORY: Significant for: 1. Abdominoperineal resection with right-sided ostomy in 2011. 2. History of tonsillectomy. 3. Cataract surgery. 4. Right-sided inguinal hernia repair. FAMILY HISTORY: Negative for end-stage renal disease. PERSONAL AND SOCIAL HISTORY: The patient is a former smoker and does have a history of heavy alcohol use in the past. Denies any drug use. ALLERGIES: He has no known drug allergies. MEDICATIONS: Home medications include: - allopurinol 100 mg twice a day - aspirin 81 mg daily - calcium carbonate with vitamin D one tablet daily - clonidine 0.1 mg twice a day - Nexium 40 mg daily - metoprolol 100 mg ER one and a half tablet daily - potassium chloride 10 mEq daily - pravastatin 40 mg daily - torsemide 50 mg daily REVIEW OF SYSTEMS: The patient reports frequent vomiting for the last three days prior to admission. He denies any abdominal pain or diarrhea at present. His colostomy was not working well for the last couple of days. Ears, nose and throat are unremarkable. Cardiovascular system is significant for atrial fibrillation which was new onset and rapid ventricular rate. He has been treated with amiodarone and still in atrial fibrillation on the monitor. The patient denies any chest pain or dyspnea at present. Respiratory system is negative for cough or hemoptysis. Gastrointestinal (GI) system is significant for poorly functioning colostomy and recurrent vomiting for the last three days. He is currently being treated for small-bowel obstruction with nasogastric (NG) tube suctioning. He has a parastomal hernia which is likely the cause of his small-bowel obstruction. Genitourinary () system significant for acute renal failure. The patient denies any history of kidney stones, dysuria or flank pain. Musculoskeletal system is significant for a history of gout. He denies any leg edema. Endocrine system is significant for type 2 diabetes. He denies any thyroid problems. Hematological system is negative for any easy bruising or excessive bleeding. He is not on any anticoagulation so far. Psychosocial system is negative for depression or anxiety. PHYSICAL EXAMINATION: Elderly gentleman laying in the bed without any acute distress and has a nasogastric tube in place. Temperature 98.2 degrees Fahrenheit, heart rate 98 per minute and respiratory rate 18 per minute. Blood pressure 109/64 mmHg and oxygen saturation 95% on two liters of oxygen. His head is atraumatic. Neck is supple and jugular venous distention (JVD) difficult to be assessed. There are no oral thrush or ulcers. Heart sounds are tachycardiac and irregular in rhythm. Lungs sound clear to auscultation. Abdomen is soft, protuberant, and colostomy is functioning. Extremities without any cyanosis or clubbing. Neurologically, he is awake, alert and oriented times three. LABORATORY DATA: Today's laboratories show sodium 142, potassium 3.0, CO2 31, BUN 79 and creatinine 2.95. Glucose 114 and calcium 8.3. Lactic acid 1.9. Total protein 6.8 and albumin 2.6. Troponin 0.38, 0.53 and 0.48 respectively. Hemoglobin is 15.5 and hematocrit 47.3. WBC count is 7.4. The patient had a prior to abdominal CT scan done which showed a parastomal hernia and distended small bowel loops but no hydronephrosis. PROBLEMS: 1. Acute renal failure superimposed on chronic kidney disease. The patient has a known serum creatinine of 1.1 to 1.2 mg/dL at baseline according to laboratories from his primary care physician's office. Acute renal failure is most likely prerenal as the patient reports frequent vomiting for three days and has a small bowel obstruction with nasogastric (NG) tube suctioning. He also had rapid atrial fibrillation which may have contributed to decreased blood flow and worsening kidney function. I would recommend gentle IV fluid hydration with about 70 mL of normal saline per hour and monitor renal function at least once or twice a day. 2. Hypokalemia, most likely related to frequent vomiting and the patient has already received intravenous potassium supplement. His electrolytes will be checked again later today. 3. Rapid atrial fibrillation. He is still in atrial fibrillation but ventricular rate seems to be better. He has been treated with amiodarone. Thank you for involving me in the care of Mr. Gore. I will follow him along with you.
[2019-04-12] MEDS: NYSTATIN 100,000 UNITS/GM TOPICAL PWD 15 GM TOP SCH (20:12)
[2019-04-13] VITALS (13 sets, daily range): BP systolic 99–140; BP diastolic 58–84
[2019-04-13] MEDS: METOPROLOL 5 MG/5 ML VIAL IV SCH ×4 (01:18→20:39)
[2019-04-13] MEDS: KCL 20MEQ in NS 1000ML 1,000 ML IV SCH ×2 (03:18→20:41)
[2019-04-13 05:45] LABS: BASO # 0.1 10^3/uL (0.0-0.2); BASO % 0.6 % (0.0-1.0); EOS # 0.1 10^3/uL (0.0-0.5); EOS % 1.4 % (0.0-3.0); HEMATOCRIT 48.2 % (42.0-52.0); HEMOGLOBIN 15.7 g/dl (13.5-17.5); LYMPH # 1.2 10^3/uL (1.5-5.0); LYMPH % 15.1 % (24.0-44.0); MEAN CORPUSCULAR HEMOGLOBIN 31.3 pg (27.0-33.0); MEAN CORPUSCULAR HGB CONC 32.6 g/dl (32.0-36.5); MEAN CORPUSCULAR VOLUME 96.2 fl (80.0-96.0); MONO % 12.2 % (0.0-5.0); NEUTROPHILS # 5.5 10^3/uL (1.5-8.5); NEUTROPHILS % 69.9 % (36.0-66.0); PLATELET COUNT, AUTOMATED 177 10^3/uL (150-450); RED BLOOD COUNT 5.01 10^6/uL (4.30-6.10); WHITE BLOOD COUNT 7.8 10^3/uL (4.0-10.0)
[2019-04-13] MEDS: HumaLOG INSULIN (NovoLOG) PER UNIT SC SCH ×4 (06:00→18:00)
[2019-04-13 06:17] LABS: ALBUMIN 2.6 GM/DL (3.2-5.2); BILIRUBIN,TOTAL 0.7 MG/DL (0.2-1.0); CALCIUM LEVEL 8.2 MG/DL (8.8-10.2); CREATININE FOR GFR 1.89 MG/DL (0.70-1.30); GLOMERULAR FILTRATION RATE 36.5 (>35); POTASSIUM SERUM 3.4 MEQ/L (3.5-5.1); TOTAL PROTEIN 7.1 GM/DL (6.4-8.2)
--- NOTE | 2019-04-13 07:58 | ECHO ---
DATE OF STUDY: 04/12/2019 REFERRING PHYSICIAN: Dr. Ammon Farr INDICATION: Atrial fibrillation. Height: 173 cm. WEIGHT: 104 kg. DIMENSIONS: IVS: 1.5 LV: 4.9 LVPW: 1.5 LA: 5.0 Aorta: 3.6 IVC: 2.4 FINDINGS: The study is of poor technical quality due to the patient's body habitus and difficulty with positioning. He is in atrial fibrillation with heart rate fluctuating between 80 and 140 beats per minute. Left ventricle is normal size. There is moderate left ventricular hypertrophy. I am unable to reliably estimate ejection fraction, but it appears probably normal or near normal based on very limited views. I certainly cannot rule out any significant wall motion abnormality with any degree of certainty. The right ventricle was poorly visualized. Both atria appear severely enlarged. Aortic valve is sclerotic but has three cusps and preserved mobility. Mitral valve exhibits mild degenerative abnormalities but mobility seems preserved. Tricuspid and pulmonic valves were poorly seen, but grossly appear normal. Pericardial fat pad is noted. Inferior vena cava was dilated. Aortic root was normal. Aortic arch and abdominal aorta were not seen. Doppler interrogation reveals no significant aortic and mitral valvular disease. Same applies for pulmonic valve. There was trace tricuspid insufficiency, but the quality of TR jet was not sufficient to adequately estimate pulmonary artery pressure. Evaluation of diastolic function is inconclusive due to underlying atrial fibrillation. CONCLUSIONS: 1. Study is of poor technical quality, the patient is in atrial fibrillation. 2. Normal LV size with moderate LVH and probably normal or near normal systolic function based on very limited views. 3. No hemodynamically significant valvular disease. 4. Likely elevated central venous pressure but unable to estimate pulmonary artery pressure. 5. Severe biatrial enlargement under COMMENTS: Subacute bacterial endocarditis (SBE) prophylaxis is not recommended.
--- NOTE | 2019-04-13 08:05 | IPN ---
DATE: 04/12/2019 HISTORY: The patient was admitted yesterday with new onset atrial fibrillation with an uncontrolled rate and a several-day history of nausea and vomiting with a CT suggesting a bowel obstruction in a parastomal hernia. He has been seen by cardiology and his tachycardia is mildly to moderately controlled today, though he remains in atrial fibrillation. Vital signs show that his pulse has been recorded between 104 and 128. His blood pressure is good and his pulse oximetry is in the low to mid 90s. He has been afebrile since admission. Intake and output shows that he has had 2200 in. He has had 3000 out of his NG tube yesterday. Today, he has had 725 additional mL with 900 of urine output. 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 Heart exam shows an irregular rhythm and he remains tachycardiac. The lungs are fairly clear. The abdomen is obese. His ostomy in the right lower quadrant shows a small amount of soft stool at the stoma, but there is little to nothing within the bag. He does have a few bowel sounds present within the abdomen. There is some mild tenderness to palpation, it is not well localized. LABORATORY STUDIES: Today, show a white count of 7, hemoglobin 15, hematocrit of 47 and a platelet count of 180,000. Chemistry profile shows a sodium of 142, potassium 3.3, chloride 100, CO2 of 32, BUN of 77, creatinine 2.3 and glucose of 99. The albumin was 2.7. IMPRESSION: The patient reports no air through his stoma today with little to no stool. His NG output has diminished and he appears somewhat more comfortable. The abdomen is soft. RECOMMENDATIONS: I would recommend continuing the NG tube to low intermittent suction at this point. He should remain on IV hydration. I will give him a little bit longer to see if he will resolve this bowel obstruction spontaneously while the patient's cardiac rhythm is addressed. Unfortunately, any surgery to address his hernia is likely to be very difficult given his several prior procedures and the fact that he has had mesh placed at least once and perhaps twice before. If he does not show signs of resolving this obstruction, then surgical intervention however may be necessary. MARLA
--- NOTE | 2019-04-13 08:35 | CR ---
DATE OF CONSULTATION: 04/11/2019 REASON FOR CONSULTATION: Bowel obstruction. HISTORY OF THE PRESENT ILLNESS: The patient is an 83-year-old man who had undergone an abdominoperineal resection for rectal cancer back in 2011. In 2012 to address a parastomal hernia and incisional hernia, he had his ostomy moved from the left side to the right with placement of mesh for his midline incisional hernia. He had another surgical procedure for a bowel obstruction from an incarcerated parastomal hernia in July of 2014. The patient reports that he has apparently been doing well recently. However, in the last few days, he developed the feeling of fullness with some bloating and abdominal discomfort. He developed vomiting on the morning of 04/11/2019, which continued during the day. He noticed diminished output from his ostomy. In the emergency department, he was found to be in atrial fibrillation with a heart rate of about 150. A CT scan was obtained of the abdomen which showed a parastomal hernia containing several short segments of small bowel with evidence for obstruction at this level. He was admitted by the hospitalist service to the intensive care unit (ICU) for management of the new onset atrial fibrillation and I was consulted regarding his bowel obstruction. Home medications are listed as allopurinol, aspirin, calcium with vitamin D, clonidine esomeprazole metoprolol succinate, potassium, pravastatin, and torsemide. He has NO KNOWN ALLERGIES recorded. SURGICAL HISTORY: He has had an abdominoperineal resection in 2012. He had an ostomy relocated IN 2012 and a bowel obstruction addressed with repair of a parastomal hernia in 2014. He has undergone a tonsillectomy. He has also had cataract surgeries and a right inguinal hernia repair. Medical history is significant for his rectal carcinoma though he has shown no evidence of recurrence. He has diabetes mellitus, type 2. He has chronic obstructive pulmonary disease. He has hyperlipidemia and hypertension. He has a history of asthma. He has peripheral arterial disease. He has significant obesity. He has chronic kidney disease, stage III. He has past history of alcohol abuse. He has glaucoma, gastroesophageal reflux disease, and gout. He has reportedly a history of obstructive sleep apnea on continuous positive airway pressure (CPAP). Family history is not pertinent in this elderly gentleman for this problem. SOCIAL HISTORY: He is a former smoker and has been a heavy drinker of alcohol in the past. Review of systems revealed no recent chest pain or palpitations. He denies cough, wheezing or sputum production. He has no dysuria or hematuria. He has had no history of deep venous thrombosis (DVT) or pulmonary embolus. He has no significant new bone or joint problems. He denies any recent weight gain or weight loss. He has no history of seizure or stroke. He does report that his stoma has been working fairly well recently until this episode. Physical examination reveals a pleasant, bearded gentleman lying quietly in the hospital bed. He is alert and oriented. He has a nasogastric tube in the right nares and this is draining some turbid yellow-brown fluid. Mucous membranes are somewhat tacky. Neck is without palpable mass. Heart exam reveals a rapid irregular tachycardia. Lungs show generally clear breath sounds though the breath sounds are distant bilaterally. The abdomen is quite obese. He has scarring consistent with prior surgery. There is a stoma in the right mid to lower abdomen with a minimal amount of stool right at the orifice of the stoma but nothing in the bag. He has some bowel sounds present. I do not detect any distinct tympany to percussion. I cannot feel a hernia at the stoma. There is some mild tenderness to palpation in the mid abdomen. Laboratory studies show a white count of 8, hemoglobin of 17, hematocrit of 53 and a platelet count of 221,000. Differential count showed 60% neutrophils, 10 bands, 18 lymphocytes, 12 monocytes. Chemistry profile in the emergency department showed a sodium of 138, potassium 3.1, chloride 90, CO2 of 31, BUN of 61, creatinine 3.2 and a glucose of 144. Other chemistries showed normal liver function tests with a troponin 0.38, total protein 7.6 and an albumin of 3.4. Lipase was 73. CT scan imaging I reviewed personally. He has significant surgical changes consistent with his abdominoperineal resection. The descending colon crosses across the abdomen from the left midabdomen to the right side to his stoma. There is a small parastomal hernia containing fat and several small loops of small bowel and there does appear to be some distension of the small bowel on the proximal side of this. There is what appears to be a second smaller hernia closer to the midline at the same level as the ostomy. He has multiple large renal cysts bilaterally. There is no evidence of free air or free fluid within the abdomen. IMPRESSION: 1. Small bowel obstruction secondary to parastomal hernia containing small bowel. 2. Atrial fibrillation new onset. Other medical problems include diabetes mellitus, chronic obstructive pulmonary disease (COPD), obstructive sleep apnea, morbid obesity, hypertension, hyperlipidemia, asthma, chronic kidney disease stage III, tobacco abuse, gastroesophageal reflux, gout, and glaucoma. RECOMMENDATIONS: At this point, I would recommend trying to bring his atrial fibrillation under better control. His obstruction is being addressed with a nasogastric tube and this has been putting out quite a bit. He should remain certainly on IV hydration. I would recommend that we follow him for the next 48 hours or so to see if he will resolve this obstruction on his own. I would encourage him to be out of bed as able if his cardiac condition will allow. His surgery to address this parastomal hernia would likely be quite difficult given the several surgical procedures he has had previously with placement of mesh in 2013. The patient had an opportunity to ask questions and desires to proceed as I have outlined. I will continue to follow him until we resolve his surgical issue. MARLA
[2019-04-13] MEDS: PANTOPRAZOLE 40MG INJ (PROTONIX) (C9113) IV SCH ×2 (08:50→20:39)
[2019-04-13] MEDS: ENOXAPARIN 80 MG/0.8 ML SYRINGE (J1650) SC SCH (08:50)
[2019-04-13] MEDS: KCL 10MEQ/100ML SWI (KRUN) 10 MEQ in IV 1 EA IV SCH ×4 (08:51→12:44)
--- NOTE | 2019-04-13 09:04 | IPN ---
DATE OF SERVICE: 04/15/2019 Mr. Gore is in good spirits today. He feels better than yesterday, even though he still has some bloating in his abdomen. He does not seem to be passing much of anything through his colostomy. He denies any chest pain or sensation of palpitations. Unfortunately, his heart rate remains uncontrolled with the current regimen. His typical heart rate is around 110-120 range. He does not seem to be symptomatic from it. Vital signs: Blood pressure 122/58. Heart rate as above. He is afebrile. Saturation is 90% on room air and up to 93% on 2 liters of oxygen. He is alert and oriented and appropriate. His jugular venous pressure (JVP) is difficult to tar kettle runner with his body habitus but does not appear high. Lungs are reasonably clear with somewhat diminished breath sounds over both bases but no crackles, wheezing, or rhonchi. Heart examination: Irregularly irregular rhythm without obvious murmur or gallop. Abdomen is distended but softer than yesterday. Bowel sounds are detectable. Nasogastric (NG) tube is still in place. Extremities: Have very prominent stasis dermatitis skin changes but no edema per se. LABORATORIES: Sodium 143, potassium 3.4, BUN 69, creatinine 1.9, and glucose 89. Complete blood count (CBC): Hemoglobin 15.7, hematocrit 48, and platelet count 177,000. ASSESSMENT AND PLAN: Mr. Gore is 83-year-old man who presented with bowel obstruction. He has been treated conservatively. He also was found to be in atrial fibrillation with rapid ventricular response, which is a new abnormality. We temporary anticoagulated him with Lovenox with adjusted dose for his age and renal function. I am trying to accomplish rate control without using amiodarone because I do not necessarily want to cardiovert him back to sinus rhythm. We are currently using metoprolol intravenous (IV) every 6 hours, which have not been completely successful, and I am going to add digoxin. This is just a temporizing solution until we will see what his renal function stabilizes at. I am going to give him load as just 0.75 mg over the course of 12 hours. Then depending on effect, will decide on further doses if necessary. We will see how his gastrointestinal (GI) tract does. So far, it does not seem that he is responding terribly well to conservative management.
[2019-04-13] MEDS: DIGOXIN INJ 0.5 MG/2 ML AMP (J1160) IV SCH ×3 (09:19→20:40)
[2019-04-13] MEDS: NYSTATIN 100,000 UNITS/GM TOPICAL PWD 15 GM TOP SCH ×2 (09:19→20:40)
--- NOTE | 2019-04-13 17:53 | IPN ---
DATE: 04/13/2019 Mr. Gore is seen this morning on his bedside. He remains with nasogastric tube and low intermittent suction. He is receiving IV fluid at 75 mL per hour. He remains in atrial fibrillation on the monitor. The patient denies any dyspnea or chest pain. He still feels that his abdomen is bloated and colostomy is not functioning. PHYSICAL EXAMINATION: Temperature 98.2 degrees Fahrenheit, heart rate 112 per minute and respiratory rate 20 per minute. Blood pressure 116/70 mmHg and oxygen saturation 92% on room air. Head is atraumatic. Nasogastric tube is in place. Neck is supple and without jugular venous distention (JVD) or thyroid enlargement. Heart sounds irregular and tachycardiac and lungs sound clear to auscultation. Abdomen is soft and somewhat bloated and colostomy nonfunctioning. Bowel sounds are present. Extremities: Without any cyanosis or clubbing. Neurologically, he is awake, alert and at his baseline mentation. Today's labs show WBC count 7.8, hemoglobin 15.7 and hematocrit 48.2. Platelets 177. Sodium 143, potassium 3.4, CO2 of 31, BUN 69 and creatinine 1.89. Calcium level is 8.2. PROBLEMS: 1. Acute renal failure superimposed on chronic kidney disease. Kidney function gradually improving, and we will continue with IV fluid at 70 mL per hour. He remains with nasogastric tube suctioning and nothing by mouth. 2. Hypokalemia. Potassium level slightly improved, and the patient is receiving potassium chloride 20 mEq in each liter of IV fluid. Electrolytes will be checked again tomorrow morning. 3. Atrial fibrillation with rapid ventricular rate. His ventricular rate is moderately controlled, and he remains on digoxin and beta terri. 4. Small bowel obstruction. The patient remains with nasogastric tube suctioning.
--- NOTE | 2019-04-13 19:31 | IPN ---
DATE: 04/13/2019 HISTORY: The patient presented with a history of abdominal pain with nausea and vomiting. He was found to have new-onset atrial fibrillation with a rapid ventricular response and also a small parastomal hernia with a small bowel obstruction. He is in the intensive care unit (ICU) being treated for the atrial fibrillation and has a nasogastric (NG) tube in place. It was noted today that he had a small amount of air from his ostomy bag, perhaps one bag full, as well as a minimal amount of liquid stool. Vital signs: Show that he has been afebrile. His pulse remains in the 110s to 120s. Blood pressure has been variable between 99 and 138 systolic today. Intake and output shows that yesterday he had 1600 in with 1650 out. He had 1450 out of his G-tube today. Urine output was 600. PHYSICAL EXAMINATION: The patient remains cheerful and alert. He appears comfortable at rest in the bed. Heart exam reveals an irregularly irregular rhythm at about 115. The lungs are generally clear. The abdomen is obese but soft. His ostomy appliance is basically empty. I palpated around his stoma, and I cannot feel the underlying parastomal hernia which is located just lateral to the stoma. There is a little discomfort in the upper abdomen on palpation fairly deeply. Laboratory studies show a white count of 8, hemoglobin 16, hematocrit 48 and a platelet count of 177,000. Chemistry profile shows potassium 3.4, BUN 69 and a creatinine of 1.9. IMPRESSION: Patient has apparently not resolved his bowel obstruction as of yet. He was started on digoxin today to try to continue to manage his atrial fibrillation. PLAN: I spoke with the patient about the potential need for surgery for his parastomal hernia. His surgery is likely to be somewhat difficult given his several prior procedures, but I think it would still be reasonable to consider an attempt at a laparoscopic approach to his hernia. If he has not improved significantly by tomorrow, then I think we will need to talk about the timing for his surgical intervention. This is assuming that his cardiac status is stable for surgery. MARLA
--- NOTE | 2019-04-13 19:41 | IPNPDOC ---
Date Seen The patient was seen on 04/13/19. Progress Note SUBJECTIVE: 83-year-old male with past medical history of hypertension, gout, rectal cancer status post resection and colostomy, diabetes mellitus, COPD, peripheral artery disease and hyperlipidemia was admitted for small bowel obstruction new onset atrial fibrillation and acute kidney injury. Patient was transferred to the ICU due to hypotension along with atrial fibrillation and rapid ventricular response, was treated with IV amiodarone. Patient's small bowel obstruction is being managed conservatively with NG tube placement and IV fluids with somewhat improvement and symptoms and ostomy output. Patient continues to have large output from NG tube and mild to moderate abdominal pain. There is no immediate plan for surgical intervention, acute kidney injury is improving with IV hydration. Patient denies any shortness of breath, chest pain, nausea, vomiting or urinary difficulty at this time. 10 point review of system is negative except for above PHYSICAL EXAMINATION: VITAL SIGNS: Please see below. GENERAL: No distress HEENT: Normocephalic, atraumatic, moist mucous membranes NECK: Supple CARDIOVASCULAR EXAMINATION: S1, S2, systolic murmur appreciated RESPIRATORY EXAMINATION: Clear to auscultation, no wheezing ABDOMINAL EXAMINATION: Soft, mild tenderness, nondistended, hypoactive bowel sounds, ostomy with small amount of liquid stool EXTREMITIES: Range of motion intact SKIN: No rash NEUROLOGICAL EXAMINATION: Alert and oriented 3, no focal deficits PSYCHIATRIC EXAMINATION: Calm and cooperative LABORATORY DATA, IMAGING STUDIES, MICROBIOLOGY: Please see below. ASSESSMENT AND PLAN: 83-year-old male with an extensive past medical history, was admitted for small bowel obstruction, new onset atrial fibrillation and acute kidney injury. PROBLEMS: 1. Small bowel obstruction: Currently being managed conservatively with NG tube and IV fluids, general surgery following. 2. New onset atrial fibrillation: Anticoagulation with Lovenox, rate is suboptimally controlled on IV metoprolol, digoxin has been started by cardiology, remains in A. fib. 3. Acute kidney injury: Likely prerenal from vomiting/decreased by mouth intake due to small bowel obstruction and decreased cardiac output from atrial fibrillation and rapid ventricular response, improving with IV hydration, continue normal saline with potassium at 70 mL per hour, nephrology following. 4. Diabetes mellitus: Continue sliding scale coverage every 6 hours. DVT prophylaxis: On Lovenox. GI prophylaxis: PPI Disposition: Downgrade patient to PCU VS, I&O, 24H, Fishbone Vital Signs/I&O Vital Signs Date Time Temp Pulse Resp B/P (MAP) Pulse Ox O2 Delivery O2 Flow Rate FiO2 04/13/19 14:25 127 04/13/19 14:25 120/67 04/13/19 12:00 98.2 20 92 Room Air 04/13/19 04:00 2.0 I&O- Last 24 Hours up to 6 AM 04/13/19 06:00 Intake Total 1478 ml Output Total 2000 ml Balance -522 ml Laboratory Data 24H LABS Laboratory Tests 2 04/12/19 23:31: Bedside Glucose (Misc Panel) 94 04/13/19 05:27: Immature Granulocyte % (Auto) 0.8, Neutrophils (%) (Auto) 69.9H, Lymphocytes (%) (Auto) 15.1L, Monocytes (%) (Auto) 12.2H, Eosinophils (%) (Auto) 1.4, Basophils (%) (Auto) 0.6, Neutrophils # (Auto) 5.5, Lymphocytes # (Auto) 1.2L, Monocytes # (Auto) 1.0H, Eosinophils # (Auto) 0.1, Basophils # (Auto) 0.1, Nucleated Red Bl ood Cells % (auto) 0.0, Anion Gap 10, Glomerular Filtration Rate 36.5, Calcium Level 8.2L, Total Bilirubin 0.7, Aspartate Amino Transf (AST/SGOT) 16, Alanine Aminotransferase (ALT/SGPT) 15, Alkaline Phosphatase 45, Total Protein 7.1, Albumin 2.6L, Albumin/Globulin Ratio 0.58L 04/13/19 12:30: Bedside Glucose (Misc Panel) 102 04/13/19 18:26: Bedside Glucose (Misc Panel) 78L CBC/BMP Laboratory Tests 04/13/19 05:27 MARK BANKS MD Apr 13, 2019 19:41
--- NOTE | 2019-04-13 21:19 | ECGEPIP ---
[facility] Test Date: 2019-04-13 Pat Name: KIESHA CH Department: Room: [place] [address] Gender: Male [employer]: ALICIA : [id number] Requested By: Chad Farnsworth Order Number: [id number] Reading MD: Marc Rubio Measurements Intervals [place] Rate: 97 P: NC: 0 QRS: 18 QRSD: 129 T: 196 QT: 375 QTc: 477 Interpretive Statements ATRIAL FIBRILLATION WITH ABERRANT CONDUCTION OR VENTRICULAR PREMATURE COMPLEXES RIGHT BUNDLE BRANCH BLOCK ST DEVIATION AND MODERATE T-WAVE ABNORMALITY, CONSIDER LATERAL ISCHEMIA Similar to tracing done 04-11-19 with decreased rate Electronically Signed on 04-13-2019 21:18:33 EST by Marc Rubio
[2019-04-14] VITALS (10 sets, daily range): BP systolic 118–146; BP diastolic 63–99
[2019-04-14] MEDS: KCL 20MEQ in NS 1000ML 1,000 ML IV SCH (00:40)
[2019-04-14] MEDS: METOPROLOL 5 MG/5 ML VIAL IV SCH ×4 (02:52→20:29)
[2019-04-14 05:46] LABS: ALBUMIN 2.7 GM/DL (3.2-5.2); BILIRUBIN,TOTAL 0.8 MG/DL (0.2-1.0); CALCIUM LEVEL 8.4 MG/DL (8.8-10.2); CREATININE FOR GFR 1.35 MG/DL (0.70-1.30); GLOMERULAR FILTRATION RATE 53.9 (>35); MAGNESIUM LEVEL 2.2 MG/DL (1.8-2.4); PHOSPHORUS LEVEL 2.8 MG/DL (2.5-4.9); TOTAL PROTEIN 6.9 GM/DL (6.4-8.2)
[2019-04-14] MEDS: HumaLOG INSULIN (NovoLOG) PER UNIT SC SCH ×5 (05:54→23:49)
[2019-04-14] MEDS ORDERED: DIGOXIN INJ 0.5 MG/2 ML AMP (J1160) IV ONE (08:00)
--- NOTE | 2019-04-14 08:07 | IPN ---
DATE: 04/14/2019 Mr. Gore is feeling well. He is in a good mood and has no specific complaints. Overnight he remained in atrial fibrillation. As the digoxin got into his system, his heart rate slowed down and currently is around 100 on average, but he did have two runs of nonsustained VT that were asymptomatic and not overly fast. Blood pressure 129/76, heart rate around 100. He is afebrile. Saturation 96% on 2 liters of oxygen. He put out about 2 liters of output yesterday and out of it almost 1500 was NG tube drainage. Weight has not been recorded yet. He is alert and oriented in no distress. His JVP is not high. Lungs are clear. Heart exam reveals irregularly irregular rhythm without obvious gallop or rub. Abdomen is soft, still mildly distended. Bowel sounds are decreased but present. There is a lot of air in his colostomy bag. Extremities are free of edema. There is significant stasis dermatitis. Neurologically, he is intact. LABORATORY: Basic metabolic panel - sodium 146, potassium 4.0, BUN 51, creatinine 1.4 for a GFR 54, glucose is 81, albumin is 2.7. CBC - hemoglobin 15.7, hematocrit 48, platelet count 177,000. ASSESSMENT/PLAN: Mr. Gore is an 83-year-old man who presented to the hospital with small bowel obstruction, possibly as a consequence of parastomal hernia. I was involved because he was also in atrial fibrillation with rapid ventricular response. Management is complicated by his inability to take oral medications. Consequently yesterday I gave him digoxin total 0.75 mg in three separate doses. His heart rate is slower, but he had a run of nonsustained VT earlier today with preserved left ventricular systolic function and asymptomatic. It is not as worrisome, but nevertheless, is concerning. I am going to give him one additional dose of digoxin just 0.125 mg today and will obtain level tomorrow. Will continue on IV Lopressor. as far as the anticoagulation is concerned, his renal function is improving, but is not quite normal yet. But I believe we can increase the dose of Lovenox to a full 1 mg/kg daily and if his renal function improves even more, then tomorrow we can give him full dose or even switch him to oral anticoagulant provided surgery believes that there is no need for surgical consideration.
[2019-04-14] MEDS ORDERED: ENOXAPARIN 100MG/1ML SYRINGE (J1650) SC SCH (09:00)
[2019-04-14] MEDS: NYSTATIN 100,000 UNITS/GM TOPICAL PWD 15 GM TOP SCH ×2 (09:41→20:29)
[2019-04-14] MEDS: PANTOPRAZOLE 40MG INJ (PROTONIX) (C9113) IV SCH ×2 (09:41→20:28)
[2019-04-14] MEDS: POTASSIUM CHLORIDE INJ 10 MEQ in NS 0.45% 1,000 ML IV SCH ×2 (09:41→22:12)
--- NOTE | 2019-04-14 09:45 | REP ---
KUB ABDOMEN AND PELVIS: Two KUB films of the abdomen and pelvis performed. Persistent moderately dilated small bowel loops are seen in the abdomen. Recent CT scan 04/11/[address] evidence of small bowel obstruction due to an anterior abdominal wall hernia. Mild scattered air is seen in the nondistended colon diffusely. There is a nasogastric tube in the stomach. Multiple metallic clips overlie the pelvis. IMPRESSION: Persistent moderate small bowel dilatation. Electronically Signed by Xavier Chen MD 04/14/2019 05:35 P
--- NOTE | 2019-04-14 15:14 | IPN ---
DATE OF VISIT: 04/14/2019 Mr. Gore is seen this morning on his bedside. He remains with nasogastric tube hooked to low intermittent suction. He feels that his abdominal bloating is improved. He denies any dyspnea or chest pain. He remains in atrial fibrillation though ventricular rate is much better improved now. On physical exam, temperature 97.6 degrees Fahrenheit, heart rate 90 per minute and respiratory rate 18 per minute. Blood pressure 135/73 mmHg and oxygen saturation 93% on room air. Head is atraumatic. Neck supple and without jugular venous distention (JVD) or thyroid enlargement. Nasogastric tube is in place. Heart sounds are irregular in rhythm and lungs sound clear to auscultation. Abdomen soft and nontender and colostomy has minimal output. Bowel sounds are hypoactive. Extremities have no cyanosis or clubbing. Neurologically, he is awake, alert and oriented times three. Abdominal x-ray done today showed persistent moderate small bowel dilatation, and his labs today showed a sodium level 146, potassium 4.0, CO2 30, BUN 51 and creatinine 1.35. PROBLEMS: 1. Acute renal failure superimposed on chronic kidney disease. Patient has mild chronic kidney disease at baseline. His acute renal failure was felt to be prerenal due to small bowel obstruction and recurrent vomiting. Kidney function has been improving nicely and we will continue with IV fluid for now. 2. Hypernatremia related to IV fluids and nothing by mouth. He was receiving normal saline, which has been stopped, and he is now being switched to half normal saline along with 10 mEq of potassium chloride at 100 mL/h. 3. Hypokalemia. Potassium level has improved and corrected. We will continue with low-dose potassium supplement in his IV fluid. 4. Small bowel obstruction. Patient remains with nasogastric tube suctioning. Repeat x-ray suggestive of persistent small bowel dilatation. 5. Atrial fibrillation with rapid ventricular rate. Ventricular rate is now better controlled. However, he still remains in atrial fibrillation and is being followed by cardiology. He was given digoxin today.
--- NOTE | 2019-04-14 16:11 | IPNPDOC ---
Date Seen The patient was seen on 04/14/19. Progress Note SUBJECTIVE: 83-year-old male with past medical history of hypertension, gout, rectal cancer status post resection and colostomy, diabetes mellitus, COPD, peripheral artery disease and hyperlipidemia was admitted for small bowel obstruction new onset atrial fibrillation and acute kidney injury. Patient was transferred to the ICU due to hypotension along with atrial fibrillation and rapid ventricular response, was treated with IV amiodarone. Patient's small bowel obstruction is being managed conservatively with NG tube placement and IV fluids with somewhat improvement and symptoms and ostomy output. Patient continues to have large output from NG tube and mild to moderate abdominal pain. There is no immediate plan for surgical intervention, acute kidney injury is improving with IV hydration. Patient denies any shortness of breath, chest pain, nausea, vomiting or urinary difficulty at this time. 04/14/19 Patient remains in the ICU due to lack of beds in PCU, increased gas production and small amount of stool, passing through the colostomy. Patient with these have significant NG tube output along with abdominal pain. Abdominal x-ray in the morning shows persistent distended loops of bowel, no immediate plan for surgical intervention at this time. Patient is without additional complaints, denies any shortness of breath, chest pain or urinary complaints. 10 point review of system is negative except for above PHYSICAL EXAMINATION: VITAL SIGNS: Please see below. GENERAL: No distress HEENT: Normocephalic, atraumatic, moist mucous membranes NECK: Supple CARDIOVASCULAR EXAMINATION: S1, S2, systolic murmur appreciated RESPIRATORY EXAMINATION: Clear to auscultation, no wheezing ABDOMINAL EXAMINATION: Soft, mild tenderness, nondistended, hypoactive bowel sounds, ostomy with small amount of liquid stool EXTREMITIES: Range of motion intact SKIN: No rash NEUROLOGICAL EXAMINATION: Alert and oriented 3, no focal deficits PSYCHIATRIC EXAMINATION: Calm and cooperative LABORATORY DATA, IMAGING STUDIES, MICROBIOLOGY: Please see below. ASSESSMENT AND PLAN: 83-year-old male with an extensive past medical history, was admitted for small bowel obstruction, new onset atrial fibrillation and acute kidney injury. PROBLEMS: 1. Small bowel obstruction: Currently being managed conservatively with NG tube and IV fluids, general surgery following, no immediate plan for surgical inte rvention. 2. New onset atrial fibrillation: Anticoagulation with Lovenox, rate is better controlled on IV metoprolol and digoxin, cardiology following, remains in A. fib. 3. Acute kidney injury: Improving with IV hydration, IV fluids switched to half normal saline due to hypernatremia. 4. Diabetes mellitus: Continue sliding scale coverage every 6 hours. DVT prophylaxis: On Lovenox. GI prophylaxis: PPI VS, I&O, 24H, Fishbone Vital Signs/I&O Vital Signs Date Time Temp Pulse Resp B/P (MAP) Pulse Ox O2 Delivery O2 Flow Rate FiO2 04/14/19 14:34 91 124/77 04/14/19 12:00 98.2 18 92 Room Air 04/14/19 04:15 2.0 I&O- Last 24 Hours up to 6 AM 04/14/19 06:00 Intake Total 960 ml Output Total 3020 ml Balance -2060 ml Laboratory Data 24H LABS Laboratory Tests 2 04/13/19 18:26: Bedside Glucose (Misc Panel) 78L 04/14/19 05:01: Anion Gap 9, Glomerular Filtration Rate 53.9, Calcium Level 8.4L, Phosphorus Level 2.8, Magnesium Level 2.2, Total Bilirubin 0.8, Aspartate Amino Transf (AST/SGOT) 14, Alanine Aminotransferase (ALT/SGPT) 16, Alkaline Phosphatase 46, Total Protein 6.9, Albumin 2.7L, Albumin/Globulin Ratio 0.64L 04/14/19 12:08: Bedside Glucose (Misc Panel) 70L CBC/BMP Laboratory Tests 04/14/19 05:01 MARK BANKS MD Apr 14, 2019 16:10
[2019-04-15] VITALS: BP 120/80
[2019-04-15] MEDS: METOPROLOL 5 MG/5 ML VIAL IV SCH ×5 (00:49→23:20)
[2019-04-15 04:00] VITALS: BP 128/72
[2019-04-15 05:56] LABS: HEMATOCRIT 49.3 % (42.0-52.0); HEMOGLOBIN 15.4 g/dl (13.5-17.5); MEAN CORPUSCULAR HEMOGLOBIN 30.7 pg (27.0-33.0); MEAN CORPUSCULAR HGB CONC 31.2 g/dl (32.0-36.5); MEAN CORPUSCULAR VOLUME 98.2 fl (80.0-96.0); PLATELET COUNT, AUTOMATED 163 10^3/uL (150-450); RED BLOOD COUNT 5.02 10^6/uL (4.30-6.10); WHITE BLOOD COUNT 7.8 10^3/uL (4.0-10.0)
[2019-04-15] MEDS ORDERED: cefoTEtan DISODIUM 2 GM in D5W MINI-BAG PLUS 50 ML IV SCH (06:00)
[2019-04-15] MEDS: HumaLOG INSULIN (NovoLOG) PER UNIT SC SCH ×2 (06:00→11:50)
[2019-04-15] MEDS: POTASSIUM CHLORIDE INJ 10 MEQ in NS 0.45% 1,000 ML IV SCH (06:14)
[2019-04-15 06:37] LABS: BLOOD UREA NITROGEN 42 MG/DL (7-18); CALCIUM LEVEL 8.5 MG/DL (8.8-10.2); CARBON DIOXIDE LEVEL 28 MEQ/L (21-32); CHLORIDE LEVEL 106 MEQ/L (98-107); CREATININE FOR GFR 1.16 MG/DL (0.70-1.30); DIGOXIN LEVEL 1.3 NG/ML (0.5-2.0); GLOMERULAR FILTRATION RATE > 60.0 (>35); GLUCOSE, FASTING 71 MG/DL (70-100); POTASSIUM SERUM 3.8 MEQ/L (3.5-5.1); SODIUM LEVEL 144 MEQ/L (136-145)
[2019-04-15 08:00] VITALS: BP 150/72
[2019-04-15] MEDS ORDERED: DIGOXIN INJ 0.5 MG/2 ML AMP (J1160) IV SCH (09:00)
[2019-04-15] MEDS: ENOXAPARIN 80 MG/0.8 ML SYRINGE (J1650) SC SCH (09:00)
--- NOTE | 2019-04-15 09:04 | IPN ---
DATE: 04/15/2019 Mr. Gore remains about the same. He continues to have copious suction out of his NG tube and not much is passing through the colostomy even though he has some gas. On cardiac front he remains in atrial fibrillation with a heart rate that is typically mildly tachycardic during the day and controlled at night. He had occasional episodes of brief runs of nonsustained ventricular tachycardia and this morning and also brief pause, a little over 2 seconds. He remains in good spirits and denies any symptoms other than the fullness in his abdomen. Vital signs this morning blood pressure 128/72, heart rate has been as above. He is afebrile. Saturation 94% on room air. Fluid balance yesterday was recorded 1 negative liter. Most of the output was through the gastric drainage and he made about 1400 mL of urine. Weight is recorded 101.7 kg. He is alert and oriented and appropriate. His JVP does not look high. Lungs are clear. Heart exam reveals irregularly irregular rhythm. Abdomen is soft, but is still distended. Some bowel sounds are noticeable. There is gas in the in the colostomy bag. Extremities have very prominent stasis dermatitis but no collin edema. Neurologically he is intact. LABORATORY: CBC is normal and basic metabolic panel also is essentially normal. His creatinine came down to 1.16, GFR at this point is over 60. ASSESSMENT/PLAN: Mr. Gore is an 83-year-old man who came with small bowel obstruction and atrial fibrillation with RVR. As far as the atrial fibrillation is concerned, he is currently receiving Lopressor every 6 hours IV and digoxin. The heart rate response has not been satisfactory and I am afraid that he has some early signs of sick sinus syndrome. Unfortunately, the inability to take oral medications certainly complicates the management. I am going to leave the medications unchanged. We are still waiting for the surgical decision as to whether he needs some form of intervention or not. Once he is able to take p.o. the management will be easier. Again because of the uncertainty about need of surgical intervention, I will keep him on Lovenox. Because his renal function normalized, I am going to advance the dose to twice a day dosing. I will continue following the patient with you.
[2019-04-15] MEDS: PANTOPRAZOLE 40MG INJ (PROTONIX) (C9113) IV SCH (09:08)
[2019-04-15] MEDS: NYSTATIN 100,000 UNITS/GM TOPICAL PWD 15 GM TOP SCH (09:10)
--- NOTE | 2019-04-15 10:23 | IPN ---
DATE: 04/14/2019 HISTORY: The patient was admitted on 04/11/2019 with evidence for a small bowel obstruction. This appears to be located in a small parastomal hernia adjacent to his permanent colostomy in the right midabdomen. He has been treated nonoperatively with a nasogastric (NG) tube to date. He had presented with new onset atrial fibrillation as well as some acute kidney injury and these have been factors in continuing with nonoperative treatment. Today, he reports that he still has not had any significant output either air or stool from his stoma. Vital signs show that his pulse has been bouncing around between the 60s and the 90s. His blood pressure is also somewhat variable but has been acceptable and his room air saturations are fine. Intake and output shows that he had 960 in yesterday with 2300 out. He had 1450 from his gastrostomy (G) tube yesterday. PHYSICAL EXAM: The patient remains quite jovial and appears fairly comfortable lying quietly on the hospital bed. He is alert and oriented. Heart exam shows an irregularly irregular rhythm in the 80s. Lungs are generally clear. The abdomen is obese. His stoma bag is empty. There is some mild fullness of the abdomen and some mild tenderness in the upper abdomen. I still cannot feel distinctly the parastomal hernia, which should be located to the right lateral side of the stoma according to the CT scan. Laboratory studies today included a CPA showing a potassium of 4 and otherwise normal electrolytes. BUN is down to 51 with a creatinine of 1.35, and the glucose is 81. Protein and albumin are 6.9 and 2.7. A KUB was done this morning that showed some persistent moderately dilated small bowel loops in the mid abdomen. IMPRESSION: The patient continues to show both clinical and x-ray signs of a persistent small bowel obstruction. By CT scan this is located in a small parastomal hernia at the right side of the stoma. PLAN: The patient was counseled that I believe we have reached the point where surgery is indicated. His heart rate is also under control though still somewhat variable on his current medications and his acute kidney injury has improved. I have recommended that we proceed with surgery on 04/15/2019. He is likely to have some significant intra-abdominal scarring from his prior operations but I am hoping that we can accomplish part of the procedure laparoscopically to clear the area for possible placement of mesh to occlude the hernia and prevent re-herniation. The patient is agreeable with this plan. I will hold his Lovenox in the morning and order him a dose of preoperative antibiotics. MARLA
[2019-04-15 12:00] VITALS: BP 153/88
--- NOTE | 2019-04-15 15:02 | IPN ---
DATE: 04/15/2019 Mr. Gore is seen this morning on his bedside. He has been transferred out of the intensive care unit to the progressive care unit. He still has the nasogastric tube in place, which is hooked to low intermittent suctioning due to persistent small-bowel obstruction. His colostomy is still not putting out much. The patient denies any dyspnea or chest pain and remains on IV fluid. PHYSICAL EXAMINATION: Temperature 97.8 degrees Fahrenheit, heart rate 98 per minute and respiratory rate 24 per minute. Blood pressure 128/72 mmHg and oxygen saturation 93% on room air. Intake and output records from yesterday showed total intake 2150 and output 3040 mL. His weight is 101.7 kg. His head is atraumatic. Nasogastric tube is in place. Neck is supple and without jugular venous distention (JVD) or thyroid enlargement. Heart sounds are tachycardiac and lungs sound clear to auscultation. Abdomen is soft and colostomy is present. Bowel sounds are hypoactive. Extremities are without any cyanosis or clubbing. Neurologically, he is awake, alert and at his baseline mentation. Today's labs show WBC count 7.8, hemoglobin 15.4 and hematocrit 49.3. Platelets 163. Sodium 144, potassium 3.8, CO2 28, BUN 42 and creatinine 1.16. Calcium level 8.5. PROBLEMS: 1. Acute renal failure superimposed on chronic kidney disease. His kidney function has improved almost back to preadmission baseline with serum creatinine 1.1. BUN is still slightly elevated and most likely this is due to prerenal azotemia. The patient is getting nasogastric suctioning and has been nothing by mouth due to small bowel obstruction and we will continue with current IV fluid at half-normal saline at 100 mL per hour. 2. Hypernatremia. He did have mild hypernatremia yesterday, which has now improved with change in IV fluids and we will continue with the same. 3. Small bowel obstruction. The patient remains with nasogastric tube suctioning. He is being followed by surgery and likely to go to operating room if his small-bowel does not start functioning. It is possible that it is obstruction caused by parastomal hernia of small bowel. 4. Atrial fibrillation. He did have rapid ventricular rate. However, now his ventricular rate is reasonably well-controlled, though he is still in atrial fibrillation.
[2019-04-15] MEDS ORDERED: ROCURONIUM BROMIDE 50 MG/5 ML VIAL As Ordered ONE ×2 (15:54→18:03)
[2019-04-15] MEDS ORDERED: propofoL 200 MG/20 ML VIAL As Ordered ONE (15:54)
[2019-04-15] MEDS ORDERED: dexameTHASONE 4 MG/ML 1ML VIAL (J1100) As Ordered ONE (15:54)
[2019-04-15] MEDS ORDERED: LIDOCAINE 2% INJ 100 MG/5 ML SDV (FOR ANES.) As Ordered ONE (15:54)
[2019-04-15] MEDS ORDERED: ONDANSETRON 4MG/2ML VIAL (J2405) As Ordered ONE ×2 (15:54→21:39)
[2019-04-15 16:00] VITALS: BP 142/77
[2019-04-15] MEDS ORDERED: MIDAZOLAM INJ 2 MG/2 ML VIAL (J2250) As Ordered ONE (16:17)
[2019-04-15] MEDS ORDERED: fentaNYL 250 MCG/5 ML INJECTION (J3010) As Ordered ONE ×2 (16:17→20:28)
[2019-04-15] MEDS ORDERED: BUPIVACAINE HCL 0.25% 30 ML VIAL As Ordered ONE (16:18)
[2019-04-15] MEDS ORDERED: ETOMIDATE INJ 20MG/10ML VIAL As Ordered ONE (16:24)
[2019-04-15] MEDS ORDERED: cefoTEtan INJ 2GM VIAL (S0074 PER 500MG) As Ordered ONE (16:40)
[2019-04-15] MEDS ORDERED: PHENYLephrine HCL 500 MCG/5 ML (100MCG/ML) SYRINGE (J2370) As Ordered ONE (17:11)
[2019-04-15] MEDS ORDERED: ACETAMINOPHEN 1000MG 100ML IV BTL (OFIRMEV) (J0131 PER 10MG) As Ordered ONE ×2 (17:28→21:39)
--- NOTE | 2019-04-15 17:47 | IPNPDOC ---
Date Seen The patient was seen on 04/15/19. Progress Note SUBJECTIVE: 83-year-old male with past medical history of hypertension, gout, rectal cancer status post resection and colostomy, diabetes mellitus, COPD, peripheral artery disease and hyperlipidemia was admitted for small bowel obstruction new onset atrial fibrillation and acute kidney injury. Patient was transferred to the ICU due to hypotension along with atrial fibrillation and rapid ventricular response, was treated with IV amiodarone. Patient's small bowel obstruction is being managed conservatively with NG tube placement and IV fluids with somewhat improvement and symptoms and ostomy output. Patient continues to have large output from NG tube and mild to moderate abdominal pain. There is no immediate plan for surgical intervention, acute kidney injury is improving with IV hydration. Patient denies any shortness of breath, chest pain, nausea, vomiting or urinary difficulty at this time. 04/14/19 Patient remains in the ICU due to lack of beds in PCU, increased gas production and small amount of stool, passing through the colostomy. Patient with these have significant NG tube output along with abdominal pain. Abdominal x-ray in the morning shows persistent distended loops of bowel, no immediate plan for surgical intervention at this time. Patient is without additional complaints, denies any shortness of breath, chest pain or urinary complaints. 04/15/19 Patient reports no change from yesterday, report mild abdominal discomfort, having minimal output from colostomy and high output from NGT. He is scheduled to undergo laparoscopy later today. He denies any SOB, CP or urinary difficulty. 10 point review of system is negative except for above PHYSICAL EXAMINATION: VITAL SIGNS: Please see below. GENERAL: No distress HEENT: Normocephalic, atraumatic, moist mucous membranes NECK: Supple CARDIOVASCULAR EXAMINATION: S1, S2, systolic murmur appreciated RESPIRATORY EXAMINATION: Clear to auscultation, no wheezing ABDOMINAL EXAMINATION: Soft, mild tenderness, mildly distended, positive bowel sounds, ostomy with small amount of liquid stool EXTREMITIES: Range of motion intact SKIN: No rash NEUROLOGICAL EXAMINATION: Alert and oriented 3, no focal deficits PSYCHIATRIC EXAMINATION: Calm and cooperative LABORATORY DATA, IMAGING STUDIES, MICROBIOLOGY: Please see below. ASSESSMENT AND PLAN: 83-year-old male with an extensive past medical history, was admitted for small bowel obstruction, new onset atrial fibrillation and acute kidney injury. PROBLEMS: 1. Small bowel obstruction: No improvement with conservative management, scheduled for OR later today, continue IV hydration. 2. New onset atrial fibrillation: Anticoagulation with Lovenox, rate is better controlled on IV metoprolol and digoxin, cardiology following, remains in A. fib. 3. Acute kidney injury: Resolved with IV hydration, currently receiving maintenance fluids due to NPO status w/ high NGT output. 4. Diabetes mellitus: Continue sliding scale coverage every 6 hours. DVT prophylaxis: On Lovenox. GI prophylaxis: PPI VS, I&O, 24H, Fishbone Vital Signs/I&O Vital Signs Date Time Temp Pulse Resp B/P (MAP) Pulse Ox O2 Delivery O2 Flow Rate FiO2 04/15/19 16:00 97.7 52 22 142/77 (98) 94 Room Air 04/14/19 04:15 2.0 I&O- Last 24 Hours up to 6 AM 04/15/19 06:00 Intake Total 2750 ml Output Total 2000 ml Balance 750 ml Laboratory Data 24H LABS Laboratory Tests 2 04/14/19 23:48: Bedside Glucose (Misc Panel) 75L 04/15/19 05:17: Nucleated Red Blood Cells % (auto) 0.0, Anion Gap 10, Glomerular Filtration Rate > 60.0, Calcium Level 8.5L, Digoxin Level 1.3 04/15/19 06:06: Bedside Glucose (Misc Panel) 73L 04/15/19 11:40: Bedside Glucose (Misc Panel) 72L CBC/BMP Laboratory Tests 04/15/19 05:17 MARK BANKS MD Apr 15, 2019 17:47
[2019-04-15] MEDS ORDERED: KETOROLAC 60 MG/2 ML VIAL (J1885) As Ordered ONE (21:39)
[2019-04-15] MEDS ORDERED: METOCLOPRAMIDE INJ 10MG/2ML VIAL (J2765) As Ordered ONE (21:56)
[2019-04-15] MEDS ORDERED: SUGAMMADEX SODIUM 500 MG/5 ML VIAL (BRIDION) As Ordered ONE (21:56)
[2019-04-15] MEDS ORDERED: METOPROLOL 5 MG/5 ML VIAL IV STA (22:55)
[2019-04-15] MEDS ORDERED: METOPROLOL 5 MG/5 ML VIAL As Ordered ONE ×3 (22:59→23:23)
[2019-04-15] MEDS ORDERED: KETOROLAC 30 MG/ML VIAL (J1885) IV PRN (23:00)
[2019-04-15] MEDS ORDERED: ONDANSETRON 4MG/2ML VIAL (J2405) IV PRN (23:00)
[2019-04-15] MEDS ORDERED: LR 1,000 ML IV SCH (23:00)
[2019-04-15] MEDS ORDERED: METOCLOPRAMIDE INJ 10MG/2ML VIAL (J2765) IV PRN (23:00)
[2019-04-15] MEDS ORDERED: MEPERIDINE INJ 25 MG/ML VIAL (J2175) IV PRN (23:00)
[2019-04-15] MEDS: fentaNYL 100 MCG/2 ML INJECTION (J3010) IV PRN ×2 (23:15→23:21)
[2019-04-15] MEDS ORDERED: fentaNYL 100 MCG/2 ML INJECTION (J3010) As Ordered ONE (23:24)
[2019-04-15 23:52] LABS: CK-MB VALUE MASS 4.3 NG/ML (<3.6); MB/CK RELATIVE INDEX 6.23 (< OR =4); TROPONIN I 0.12 NG/ML (< 0.10)
[2019-04-16] VITALS (11 sets, daily range): BP systolic 116–155; BP diastolic 55–96
[2019-04-16] MEDS: POTASSIUM CHLORIDE INJ 10 MEQ in NS 0.45% 1,000 ML IV SCH ×3 (00:10→09:57)
[2019-04-16] MEDS: METOPROLOL 5 MG/5 ML VIAL IV SCH ×5 (00:24→20:23)
[2019-04-16] MEDS: HumaLOG INSULIN (NovoLOG) PER UNIT SC SCH ×6 (00:24→23:33)
[2019-04-16] MEDS: ENOXAPARIN 80 MG/0.8 ML SYRINGE (J1650) SC SCH (00:34)
[2019-04-16] MEDS ORDERED: MORPHINE 2 MG/ML 1ML VIAL (J2270) IV ONE (00:45)
[2019-04-16] MEDS ORDERED: ACETAMINOPHEN 325 MG/10.15 ML UDC NG PRN (00:45)
[2019-04-16] MEDS: NYSTATIN 100,000 UNITS/GM TOPICAL PWD 15 GM TOP SCH ×3 (00:46→20:24)
[2019-04-16] MEDS: PANTOPRAZOLE 40MG INJ (PROTONIX) (C9113) IV SCH ×3 (00:46→20:24)
[2019-04-16] MEDS ORDERED: cefoTEtan DISODIUM 2 GM in D5W MINI-BAG PLUS 50 ML IV ONE (05:00)
[2019-04-16 06:00] LABS: CALCIUM LEVEL 7.2 MG/DL (8.8-10.2); CK-MB VALUE MASS 5.7 NG/ML (<3.6); CREATININE FOR GFR 1.71 MG/DL (0.70-1.30); MAGNESIUM LEVEL 1.8 MG/DL (1.8-2.4); MB/CK RELATIVE INDEX 6.48 (< OR =4); PHOSPHORUS LEVEL 6.2 MG/DL (2.5-4.9); POTASSIUM SERUM 4.9 MEQ/L (3.5-5.1); TROPONIN I 0.1 NG/ML (< 0.10)
--- NOTE | 2019-04-16 07:43 | ECGEPIP ---
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
[2019-04-16 08:16] LABS: ALBUMIN 2.4 GM/DL (3.2-5.2)
[2019-04-16 08:39] LABS: HEMATOCRIT 51.3 % (42.0-52.0); HEMOGLOBIN 15.5 g/dl (13.5-17.5); MEAN CORPUSCULAR HEMOGLOBIN 30.6 pg (27.0-33.0); MEAN CORPUSCULAR HGB CONC 30.2 g/dl (32.0-36.5); MEAN CORPUSCULAR VOLUME 101.4 fl (80.0-96.0); PLATELET COUNT, AUTOMATED 164 10^3/uL (150-450); RED BLOOD COUNT 5.06 10^6/uL (4.30-6.10); WHITE BLOOD COUNT 11.1 10^3/uL (4.0-10.0)
--- NOTE | 2019-04-16 08:47 | IPN ---
DATE: 04/16/2019 Mr. Gore had his surgery yesterday, apparently he tolerated it well, but this morning he is not feeling any better. He complains about abdominal pain and there is still very high output from his nasogastric (NG) tube. Denies any chest pain or sensation or palpations. The atrial fibrillation has had somewhat variable control. There are episodes of fairly significant tachycardia, but also had a few bradycardic episodes, but nothing extreme. More concerning to me was the fact that he had a few runs of nonsustained ventricular tachycardia. Vital signs this morning blood pressure 132/79, heart rate around 100, irregular. He is afebrile. Saturation is 93% on 4 liters. His fluid balance yesterday was recorded about positive 1200. Weight is 103. He is alert and oriented and appropriate, jovial as everyday. Remains in good spirits. His jugular venous pulse (JVP) is difficult to assess with his body habitus and facial hair, but does not appear grossly elevated. Lungs remain clear even though in the right base sounds slightly diminished. Heart exam reveals irregular tachycardia. Abdomen is diffusely tender and distended. Diminished bowel sounds. Extremities are free of significant edema. Laboratory this morning no CBC was drawn. Basic metabolic panel: Sodium 145, potassium 4.9, BUN 42, creatinine 1.7, and glucose 82. He had two sets of troponin drawn. The initial one was borderline elevated 0.12. The second one is 0.10. ASSESSMENT AND PLAN: Mr. Gore is an 83-year-old man, who has hypertensive heart disease but no known coronary artery disease, who presented with bowel obstruction and atrial fibrillation (AFib) with rapid ventricular response (RVR). Because we cannot administer any oral medications he was managed with IV metoprolol and digoxin. The rate remains perfectly controlled. There are some early features to suggest that he might have sick sinus syndrome. The management is further complicated by his fluctuating renal function. He initially was in renal failure, but then his hydration improved, but his creatinine again deteriorated since yesterday. I am going to hold his digoxin today because the level is quite high, had episodes of VT. Will remain the doses of metoprolol unchanged. As far as the anticoagulation is concerned, I am going to have him drawn a CBC today. If okay with surgery, I will give him Lovenox 80 mg once a day only. I am hopeful that his gastrointestinal (GI) tract will become usable within a day or two, but if not will have to administer Lovenox, but the dose can be adjusted on a daily basis depending on his renal function.
[2019-04-16] MEDS ORDERED: ENOXAPARIN 80 MG/0.8 ML SYRINGE (J1650) SC ONE (10:00)
[2019-04-16 11:25] LABS: CK-MB VALUE MASS 5.3 NG/ML (<3.6); MB/CK RELATIVE INDEX 6.71 (< OR =4); TROPONIN I 0.08 NG/ML (< 0.10)
[2019-04-16 13:26] LABS: ALBUMIN 2.5 GM/DL (3.2-5.2); CALCIUM LEVEL 7.6 MG/DL (8.8-10.2); CREATININE FOR GFR 1.73 MG/DL (0.70-1.30); GLOMERULAR FILTRATION RATE 40.5 (>35); PHOSPHORUS LEVEL 5.2 MG/DL (2.5-4.9); POTASSIUM SERUM 4.7 MEQ/L (3.5-5.1)
--- NOTE | 2019-04-16 17:19 | IPNPDOC ---
Date Seen The patient was seen on 04/16/19. Progress Note SUBJECTIVE: 83-year-old male with past medical history of hypertension, gout, rectal cancer status post resection and colostomy, diabetes mellitus, COPD, peripheral artery disease and hyperlipidemia was admitted for small bowel obstruction new onset atrial fibrillation and acute kidney injury. Patient was transferred to the ICU due to hypotension along with atrial fibrillation and rapid ventricular response, was treated with IV amiodarone. Patient's small bowel obstruction is being managed conservatively with NG tube placement and IV fluids with somewhat improvement and symptoms and ostomy output. Patient continues to have large output from NG tube and mild to moderate abdominal pain. There is no immediate plan for surgical intervention, acute kidney injury is improving with IV hydration. Patient denies any shortness of breath, chest pain, nausea, vomiting or urinary difficulty at this time. 04/14/19 Patient remains in the ICU due to lack of beds in PCU, increased gas production and small amount of stool, passing through the colostomy. Patient with these have significant NG tube output along with abdominal pain. Abdominal x-ray in the morning shows persistent distended loops of bowel, no immediate plan for surgical intervention at this time. Patient is without additional complaints, denies any shortness of breath, chest pain or urinary complaints. 04/15/19 Patient reports no change from yesterday, report mild abdominal discomfort, having minimal output from colostomy and high output from NGT. He is scheduled to undergo laparoscopy later today. He denies any SOB, CP or urinary difficulty. 04/16/19 Underwent laparoscopic release of obstructed parastomal hernia yesterday, continues to have minimal/absent ostomy output, still having moderate abdominal pain and high NGT output. Patient had an episode of Afib w/ RVR overnight requiring 3 additional doses of Metoprolol 5 mg IVP. No additional complaints at this time, denies SOB, CP or headache. Now has Noel catheter. 10 point review of system is negative except for above PHYSICAL EXAMINATION: VITAL SIGNS: Please see below. GENERAL: No distress HEENT: Normocephalic, atraumatic, moist mucous membranes NECK: Supple CARDIOVASCULAR EXAMINATION: S1, S2, systolic murmur appreciated RESPIRATORY EXAMINATION: Clear to auscultation, no wheezing ABDOMINAL EXAMINATION: Soft, mild/moderate tenderness, mildly distended, absent bowel sounds, ostomy with scant amount of liquid stool EXTREMITIES: Range of motion intact SKIN: No rash NEUROLOGICAL EXAMINATION: Alert and oriented 3, no focal deficits PSYCHIATRIC EXAMINATION: Calm and cooperative LABORATORY DATA, IMAGING STUDIES, MICROBIOLOGY: Please see below. ASSESSMENT AND PLAN: 83-year-old male with an extensive past medical history, was admitted for small bowel obstruction, new onset atrial fibrillation and acute kidney injury. PROBLEMS: 1. Small bowel obstruction: No improvement with conservative management, s/p surgical release of parastomal hernia with resolution of obstruction, currently appears to have post-op ileus, hopefully his bowel will start moving within the next 24-48 hours, maintain NGT to suction for now, continue IV hydration. 2. New onset atrial fibrillation: Anticoagulation with Lovenox (renally dosed), rate reasonably controlled on IV metoprolol and digoxin, cardiology following, remains in A. fib. 3. Acute kidney injury: had resolved with IV hydration, worsened today likely from surgical stress & insensible losses. Should improve with continue IV hydration & hopefully oral intake within the near future. 4. Diabetes mellitus: Continue sliding scale coverage every 6 hours. DVT prophylaxis: On Lovenox. GI prophylaxis: PPI VS, I&O, 24H, Fishbone Vital Signs/I&O Vital Signs Date Time Temp Pulse Resp B/P (MAP) Pulse Ox O2 Delivery O2 Flow Rate FiO2 04/16/19 16:00 4.0 04/16/19 14:15 95 119/63 04/16/19 12:00 97.7 18 100 Nasal Cannula I&O- Last 24 Hours up to 6 AM 04/16/19 06:00 Intake Total 3500 ml Output Total 2205 ml Balance 1295 ml Laboratory Data 24H LABS Laboratory Tests 2 04/15/19 23:16: Total Creatine Kinase 69, Creatine Kinase MB 4.3H, Creatine Kinase MB Relative Index 6.23H, Troponin I 0.12H 04/16/19 00:20: Bedside Glucose (Misc Panel) 80L 04/16/19 05:15: Total Creatine Kinase 88, Creatine Kinase MB 5.7H, Creatine Kinase MB Relative Index 6.48H, Troponin I 0.10, Nucleated Red Blood Cells % (auto) 0.0, Anion Gap 9, Glomerular Filtration Rate 41.0, Calcium Level 7.2#L, Phosphorus Level 6.2#H, Magnesium Level 1.8, Albumin 2.4L, Digoxin Level 1.8 04/16/19 10:45: Total Creatine Kinase 79, Creatine Kinase MB 5.3H, Creatine Kinase MB Relative Index 6.71H, Troponin I 0.08 04/16/19 11:20: Bedside Glucose (Misc Panel) 85 04/16/19 12:49: Anion Gap 10, Glomerular Filtration Rate 40.5, Calcium Level 7.6L, Phosphorus Level 5.2H, Albumin 2.5L CBC/BMP Laboratory Tests 04/16/19 05:15 04/16/19 12:49 MARK BANKS MD Apr 16, 2019 17:19
[2019-04-16] MEDS: D5W/0.45% SODIUM CHLORIDE 1,000 ML IV SCH (17:32)
--- NOTE | 2019-04-16 21:53 | RO ---
DATE OF PROCEDURE: 04/15/2019 PREOPERATIVE DIAGNOSIS: Small bowel obstruction secondary to incarcerated parastomal hernia. POSTOPERATIVE DIAGNOSES: 1. Small bowel obstruction secondary to incarcerated parastomal hernia. 2. Ventral incisional hernia. 3. Extensive adhesions. PROCEDURE PERFORMED: Laparoscopic lysis of adhesions, reduction of incarcerated parastomal hernia, repair of parastomal and ventral incisional hernias and placement of Parietex mesh to cover both hernias. The Parietex mesh utilized was reference code [id number], lot number [id number] . SURGEON: Dr. Kristopher Myers HAND RIVETER: Rusty Moran MS III ANESTHESIA: General. INDICATIONS FOR PROCEDURE: The patient is an 83-year-old man who presented to the hospital with a bowel obstruction. He is status post an abdominoperineal resection and several other procedures for subsequent hernias. A CT scan revealed a small parastomal hernia on the right with entrapped small bowel, and this seemed to be the location of his obstruction. The patient was treated nonoperatively while some other medical issues were addressed, and he is now for laparoscopy and possible laparotomy. DESCRIPTION OF PROCEDURE: The patient was brought to the operating room and placed on the table in a supine position. He was placed under general endotracheal anesthesia. A nasogastric tube was already in place. A Noel catheter was placed. The patient's colostomy appliance was removed, and the area around his stoma was prepped and a small sponge was placed over the stoma, held in place with a medium OpSite. The abdomen was then prepped with Chloraprep and draped sterilely. 0.25% Marcaine was infiltrated at the trocar sites as needed. A short transverse right upper quadrant incision was made. A Veress needle was inserted and after a positive hanging drop test, the abdomen was insufflated with carbon dioxide gas. A 5 mm port was placed through a 5 mm scope and advanced through the abdominal wall without difficulty. Initial examination showed some fairly extensive adhesions around the area of his colostomy in the right lower quadrant. He was noted to have a small hernia just to the left of the midline, perhaps 4-5 cm in diameter with a loop of bowel splayed into this defect. There was a piece of mesh identified on the left lower abdominal wall, which appeared to be well incorporated. The ostomy site was fairly well obscured by some adhesions to this area. A second 5 mm port was placed closer to the mid epigastrium, and a third port was placed in the right upper quadrant more laterally. Graspers were inserted. The patient was tilted to a Trendelenburg position. A slow and careful dissection of the adhesions was then undertaken. This took approximately 3 hours of time to free the adhesions and expose the colon as it approached the ostomy site in the right lower quadrant. This was his descending colon which came across the lower abdomen to exit the medial aspect of the stoma site. There were one or two loops of small bowel that were adherent up into the parastomal hernia, and these were carefully freed. There were a couple of small seromuscular defects that occurred, but there was no penetration of the mucosa. Once this area had been cleared, it was clear that there was an opening perhaps 5-6 cm in diameter through which the stoma exited. This was oriented obliquely, kind of longitudinally. I elected to remove the loop of bowel from within the left-sided ventral hernia to allow a single piece of mesh to be placed across the abdomen and cover the distal colon in a Sugarbaker-type approach to try to prevent recurrence of the parastomal hernia. This was also a slow and difficult dissection. Again, altogether this dissection took about 3 hours to free both hernias. He was noted to have some mildly to moderately distended proximal small bowel. This appeared to be distended all the way to the level of his parastomal hernia. There was some tension on the fascial defects, and it did not seem likely that I could accomplish closure of these with hand laparoscopy. I, therefore, elected to make a small incision on each side to close the fascial defects. On the right of the parastomal hernia, beginning just at the edge of the OpSite covering the stoma, an approximately 5-6 cm transverse incision was made and then with some undermining of the skin and subcutaneous tissues, the parastomal hernia site was entered. The fascia was cleared and the parastomal hernia was largely closed beginning at the superior end of the defect and closing this with interrupted simple sutures of #1-0 Ethibond. The defect was closed so that it was possible to insert one finger adjacent to the colon through the fascial defect. On the left side, the incision was made transversely at the left lateral edge of the hernia defect. Again, this was deepened into the subcutaneous tissues, and the fascia was exposed and the entire fascial defect was dissected free. The subcutaneous tissues were elevated off of the tissue to gain mobility. A 20 x 15 cm Parietex patch was selected. This was trimmed slightly to approximately 18 x 13 based on measurements made of the two defects. This was folded and inserted into the abdomen. This fascial defect was then closed longitudinally with interrupted simple sutures of #1-0 Ethibond. The subcutaneous tissues in both wounds were then closed with buried Vicryl sutures. The skin edges were brought together with some buried #3-0 Vicryl, and the skin edges were approximated with running subcuticular #4-0 Vicryl. The abdomen was then reinflated. The mesh was laid out over the lower abdominal wall covering both sutured fascial closures and also draping down over the colon as it came across the lower abdomen to cover the distal 8-10 cms of its course as it came to the stoma site. Once the mesh had been carefully positioned, the superior aspect was tacked across the abdominal wall with a SecureStrap tacker. Additional tacks were then placed down the midportion of the mesh to tack this down to the level of the colon, and it was then tacked inferior to the colon as it came across the abdominal wall. On the left-hand side, there was a portion of bowel still exposed at the superior aspect of the pelvis and to avoid any injury, the inferior aspect of the mesh was trimmed approximately 2 cm. Once the course of the colon had been carefully noted, multiple SecureStrap tacks were placed to securely fix the mesh to the anterior abdominal wall and over both sutured fascial defects and around the colon. A total of 75 tacks or three tackers was used. This appeared to give an excellent application of the mesh to the anterior abdominal wall. The mesh had been positioned with the nonadherent side facing the bowel. No significant bleeding occurred. A small amount of irrigation then took place and inspection showed no bleeding and no evidence of any bowel perforation. The patient was returned to a flat position and the abdomen was deflated. The trocars were removed. The trocar sites were closed with buried Vicryl sutures and Steri-Strips. The two sutured incisions on each side of the stoma were sealed with Dermabond. The OpSite dressing and sponge were then removed from the stoma and a new stoma appliance was applied. The patient tolerated the procedure well. He had returned to a rapid ventricular response with atrial fibrillation at a rate of about 135 for a portion of the procedure. His blood pressure was maintained. He was awakened in the operating room, extubated and moved to the recovery room in stable condition. MARLA
[2019-04-16] MEDS: MORPHINE 2 MG/ML 1ML VIAL (J2270) IV PRN (23:33)
[2019-04-17] VITALS: BP 131/67
[2019-04-17] MEDS: METOPROLOL 5 MG/5 ML VIAL IV SCH ×4 (02:10→20:45)
[2019-04-17 04:00] VITALS: BP 130/61
[2019-04-17] MEDS: D5W/0.45% SODIUM CHLORIDE 1,000 ML IV SCH (04:07)
[2019-04-17] MEDS: MORPHINE 2 MG/ML 1ML VIAL (J2270) IV PRN ×4 (04:08→20:46)
[2019-04-17 05:49] LABS: BASO # 0.1 10^3/uL (0.0-0.2); BASO % 0.7 % (0.0-1.0); EOS # 0.3 10^3/uL (0.0-0.5); EOS % 2.6 % (0.0-3.0); HEMATOCRIT 44.5 % (42.0-52.0); HEMOGLOBIN 13.8 g/dl (13.5-17.5); LYMPH # 0.8 10^3/uL (1.5-5.0); LYMPH % 8.6 % (24.0-44.0); MEAN CORPUSCULAR HEMOGLOBIN 30.8 pg (27.0-33.0); MEAN CORPUSCULAR VOLUME 99.3 fl (80.0-96.0); MONO # 0.7 10^3/uL (0.0-0.8); MONO % 7.2 % (0.0-5.0); NEUTROPHILS # 7.5 10^3/uL (1.5-8.5); NEUTROPHILS % 79.6 % (36.0-66.0); PLATELET COUNT, AUTOMATED 138 10^3/uL (150-450); RED BLOOD COUNT 4.48 10^6/uL (4.30-6.10); WHITE BLOOD COUNT 9.5 10^3/uL (4.0-10.0)
[2019-04-17 06:23] LABS: CALCIUM LEVEL 7.5 MG/DL (8.8-10.2); CREATININE FOR GFR 1.34 MG/DL (0.70-1.30); GLOMERULAR FILTRATION RATE 54.3 (>35); MAGNESIUM LEVEL 1.6 MG/DL (1.8-2.4)
[2019-04-17] MEDS: HumaLOG INSULIN (NovoLOG) PER UNIT SC SCH ×3 (06:42→18:00)
[2019-04-17 08:00] VITALS: BP 130/80
[2019-04-17] MEDS: MAG SULF 1GM/100ML (MAG RUN) 1 GM in IV 1 EA IV SCH ×2 (08:44→10:21)
[2019-04-17] MEDS: PANTOPRAZOLE 40MG INJ (PROTONIX) (C9113) IV SCH ×2 (08:45→20:45)
[2019-04-17] MEDS: NYSTATIN 100,000 UNITS/GM TOPICAL PWD 15 GM TOP SCH ×2 (09:13→20:46)
--- NOTE | 2019-04-17 11:06 | IPNPDOC ---
Text Note Date of Service The patient was seen on 04/17/19. NOTE Patient seen laying on bed, looks over all comfortable. Reports discomfort on abdomen, denies chest pain, shortness of breath. PT working with him. He reports he is only able to get up on bed take a few steps, feels weak. Nothing yet in the ostomy. Denies nausea. On exam: comfortable appearing, weak appearing lungs clear irregular heart rate (100s), irregular rhythm abdomen is globally distended, soft, hypoactive bowel sounds, right ostomy without any output. Port site incisions and hernia site incisions are clean, dry, intact. Tender to palpation, no focal area. Tympanitic mild LE edema POD2 extensive lysis of adhesions repair of parastomal and incisional ventral he rnia colostomy status (permanent) s/p apr from rectal carcinoma deconditioned malnutrition atrial fibrillation with RVR No active bowel function yet, continue with NGT, npo continue with PT will start with PPn this , get picc line for friday and switch to TPN then hospitalists involved with getting his HR under control. VS,Ane, I+O VS, [place], I+O Laboratory Tests 04/16/19 12:49 04/17/19 05:23 Vital Signs Date Time Temp Pulse Resp B/P (MAP) Pulse Ox O2 Delivery O2 Flow Rate FiO2 04/17/19 10:23 92 20 112/64 04/17/19 08:00 98.0 97 Nasal Cannula 4.0 I&O- Last 24 Hours up to 6 AM 04/17/19 06:00 Intake Total 1870 ml Output Total 2700 ml Balance -830 ml ROMERO LUNA MD Apr 17, 2019 10:46
[2019-04-17] MEDS ORDERED: KCL 10MEQ IN D5/0.45NS 1000ML 1,000 ML IV SCH (11:30)
[2019-04-17 12:00] VITALS: BP 142/82
--- NOTE | 2019-04-17 14:36 | IPN ---
DATE OF SERVICE: 04/17/2019 SUBJECTIVE: The patient was seen and examined at the bedside today morning. He continues to have NGT attached to suctioning, however, the amount of gastric aspirate is decreasing now. Renal function is significantly better today as compared with yesterday, creatinine has come down from 1.7 to 1.3 today. He continues to been IV fluid hydration. The patient still reports that he is feeling thirsty. OBJECTIVE: VITAL SIGNS: Temperature is 98 degrees Fahrenheit, blood pressure 112/64, pulse 92, respiratory of 20, saturating 97% on nasal cannula at 4 liters. INTAKE AND OUTPUT: Urine output recorded as 1200 mL yesterday, 350 mL so far today since overnight. Gastric drainage so far today since overnight is 300 mL. Weight on the bed scale is 105.2 kg. PHYSICAL EXAMINATION: GENERAL: Patient is awake, alert, oriented times three, laying in bed, in mild painful distress. HEAD/NECK EXAM: Extraocular muscles intact. Pupils equally round and reactive to light. Mucous membranes are moist. Neck is supple. There is no JVD. CARDIOVASCULAR: S1, S2 regular rate. No edema of the bilateral lower extremities. RESPIRATORY: Chest is clear to auscultation bilaterally. Bilateral equal air entry. No rales or rhonchi. ABDOMEN: Distended. It is tender to deep palpation. There are laparoscopy healing surgical scars and he has a right lower quadrant of colostomy. GENITOURINARY: Patient has an indwelling Noel catheter. MUSCULOSKELETAL: No clubbing or cyanosis. Pulses are 2+. ENGINEER GEOPHYSICAL LABORATORY: No focal deficit. Power is 5/5 in bilateral upper extremities. LAB REVIEW: CBC showed WBC 9.5, hemoglobin 13.8, platelets are 138. BMP showed sodium 143, potassium is 4, chloride 108, bicarb 27, BUN 30, creatinine is 1.3, glucose 118, calcium 7.5, magnesium 1.6. CURRENT INPATIENT MEDICATIONS: The patient's medications were all reviewed by me. His IV fluids were changed to D5 half-normal saline at 100 mL an hour. I am changing the fluid again to KCL 10 mEq and D5 half-normal saline at 100 mL an hour. He was also given two doses of mag sulfate IV. He continues to be on IV metoprolol. No other change in the medications today as compared with yesterday. ASSESSMENT/PLAN: 1. Acute kidney injury. It is secondary to dehydration and volume depletion. Patient is getting IV fluid hydration. Renal function is improving. 2. Protein calorie malnutrition and hypoglycemia. The patient is currently getting dextrose and IV fluids. The patient will get TPN once he starts the PICC line placed. 3. Hypomagnesemia. The patient was given two runs of IV mag today morning. 4. Atrial fibrillation with rapid ventricular rate. The patient is being seen by cardiology. He is currently getting IV metoprolol. 4. Small-bowel obstruction. The patient still has NGT with suctioning, however drainage is improving. Continue IV fluid hydration. The patient is being seen by surgery. He is status post surgical release of parastomal hernia with lysis of adhesions.
--- NOTE | 2019-04-17 14:57 | IPNPDOC ---
Date Seen The patient was seen on 04/17/19. Progress Note SUBJECTIVE: 83-year-old male with past medical history of hypertension, gout, rectal cancer status post resection and colostomy, diabetes mellitus, COPD, peripheral artery disease and hyperlipidemia was admitted for small bowel obstruction new onset atrial fibrillation and acute kidney injury. Patient was transferred to the ICU due to hypotension along with atrial fibrillation and rapid ventricular response, was treated with IV amiodarone. Patient's small bowel obstruction is being managed conservatively with NG tube placement and IV fluids with somewhat improvement and symptoms and ostomy output. Patient continues to have large output from NG tube and mild to moderate abdominal pain. There is no immediate plan for surgical intervention, acute kidney injury is improving with IV hydration. Patient denies any shortness of breath, chest pain, nausea, vomiting or urinary difficulty at this time. 04/14/19 Patient remains in the ICU due to lack of beds in PCU, increased gas production and small amount of stool, passing through the colostomy. Patient with these have significant NG tube output along with abdominal pain. Abdominal x-ray in the morning shows persistent distended loops of bowel, no immediate plan for surgical intervention at this time. Patient is without additional complaints, denies any shortness of breath, chest pain or urinary complaints. 04/15/19 Patient reports no change from yesterday, report mild abdominal discomfort, having minimal output from colostomy and high output from NGT. He is scheduled to undergo laparoscopy later today. He denies any SOB, CP or urinary difficulty. 04/16/19 Underwent laparoscopic release of obstructed parastomal hernia yesterday, continues to have minimal/absent ostomy output, still having moderate abdominal pain and high NGT output. Patient had an episode of Afib w/ RVR overnight requiring 3 additional doses of Metoprolol 5 mg IVP. No additional complaints at this time, denies SOB, CP or headache. Now has Noel catheter. 04/17/19 Patient continues to have abdominal pain, minimal gas output from ostomy, and T2 with considerable output, no additional complaints. 10 point review of system is negative except for above PHYSICAL EXAMINATION: VITAL SIGNS: Please see below. GENERAL: No distress HEENT: Normocephalic, atraumatic, moist mucous membranes NECK: Supple CARDIOVASCULAR EXAMINATION: S1, S2, systolic murmur appreciated RESPIRATORY EXAMINATION: Clear to auscultation, no wheezing ABDOMINAL EXAMINATION: Soft, mild tenderness, mildly distended, hypoactive bowel sounds, ostomy with scant amount of liquid stool EXTREMITIES: Range of motion intact SKIN: No rash NEUROLOGICAL EXAMINATION: Alert and oriented 3, no focal deficits PSYCHIATRIC EXAMINATION: Calm and cooperative LABORATORY DATA, IMAGING STUDIES, MICROBIOLOGY: Please see below. ASSESSMENT AND PLAN: 83-year-old male with an extensive past medical history, was admitted for small bowel obstruction, new onset atrial fibrillation and acute kidney injury. PROBLEMS: 1. Small bowel obstruction: No improvement with conservative management, s/p surgical release of parastomal hernia with lysis of adhesions, currently appears to have post-op ileus which is improving at a very slow rate, maintain NGT to suction for now, continue IV hydration, plan for TPN per surgery. 2. New onset atrial fibrillation: Anticoagulation with Lovenox (renally dosed), rate reasonably controlled on IV metoprolol, digoxin on hold, will recheck level in the morning, cardiology following, remains in A. fib. 3. Acute kidney injury: had resolved with IV hydration, worsened postop due to surgical stress & insensible losses, improving with IV hydration, will monitor. 4. Diabetes mellitus: Continue sliding scale coverage every 6 hours. DVT prophylaxis: On Lovenox. GI prophylaxis: PPI VS, I&O, 24H, Fishbone Vital Signs/I&O Vital Signs Date Time Temp Pulse Resp B/P (MAP) Pulse Ox O2 Delivery O2 Flow Rate FiO2 04/17/19 12:00 142/82 (102) Nasal Cannula 3.0 04/17/19 10:40 20 04/17/19 10:23 92 04/17/19 08:00 98.0 97 I&O- Last 24 Hours up to 6 AM 04/17/19 06:00 Intake Total 1870 ml Output Total 2700 ml Balance -830 ml Laboratory Data 24H LABS Laboratory Tests 2 04/16/19 17:26: Bedside Glucose (Misc Panel) 76L 04/16/19 23:31: Bedside Glucose (Misc Panel) 97 04/17/19 05:23: Immature Granulocyte % (Auto) 1.3, Neutrophils (%) (Auto) 79.6H, Lymphocytes (%) (Auto) 8.6L, Monocytes (%) (Auto) 7.2H, Eosinophils (%) (Auto) 2.6, Basophils (% ) (Auto) 0.7, Neutrophils # (Auto) 7.5, Lymphocytes # (Auto) 0.8L, Monocytes # (Auto) 0.7, Eosinophils # (Auto) 0.3, Basophils # (Auto) 0.1, Nucleated Red Blood Cells % (auto) 0.0, Anion Gap 8, Glomerular Filtration Rate 54.3, Calcium Level 7.5L, Magnesium Level 1.6L 04/17/19 06:38: Bedside Glucose (Misc Panel) 114H 04/17/19 11:45: Bedside Glucose (Misc Panel) 124H CBC/BMP Laboratory Tests 04/17/19 05:23 MARK BANKS MD Apr 17, 2019 14:57
[2019-04-17] MEDS ORDERED: ENOXAPARIN 100MG/1ML SYRINGE (J1650) SC ONE (15:00)
[2019-04-17 16:00] VITALS: BP 116/71
[2019-04-17] MEDS ORDERED: HumaLOG INSULIN (NovoLOG) PER UNIT SC SCH (18:00)
[2019-04-17] MEDS ORDERED: FAT EMULSION IV 20% 500 ML IV SCH (18:00)
[2019-04-17] MEDS: AMINO AC/ELECTROLYTE/DEX/CALC 1,000 ML IV SCH (18:49)
[2019-04-17 20:00] VITALS: BP 130/88
[2019-04-18] VITALS (7 sets, daily range): BP systolic 112–153; BP diastolic 70–83
[2019-04-18] MEDS: MORPHINE 2 MG/ML 1ML VIAL (J2270) IV PRN ×3 (02:05→21:10)
[2019-04-18] MEDS: METOPROLOL 5 MG/5 ML VIAL IV SCH ×4 (02:05→20:19)
[2019-04-18 05:35] LABS: BASO # 0.1 10^3/uL (0.0-0.2); BASO % 0.7 % (0.0-1.0); EOS # 0.3 10^3/uL (0.0-0.5); EOS % 3.6 % (0.0-3.0); HEMATOCRIT 42.8 % (42.0-52.0); HEMOGLOBIN 12.9 g/dl (13.5-17.5); LYMPH % 10.4 % (24.0-44.0); MEAN CORPUSCULAR HEMOGLOBIN 30.2 pg (27.0-33.0); MEAN CORPUSCULAR HGB CONC 30.1 g/dl (32.0-36.5); MEAN CORPUSCULAR VOLUME 100.2 fl (80.0-96.0); MONO # 0.7 10^3/uL (0.0-0.8); MONO % 8.1 % (0.0-5.0); NEUTROPHILS % 75.8 % (36.0-66.0); PLATELET COUNT, AUTOMATED 132 10^3/uL (150-450); RED BLOOD COUNT 4.27 10^6/uL (4.30-6.10); WHITE BLOOD COUNT 9.2 10^3/uL (4.0-10.0)
[2019-04-18 05:52] LABS: BLOOD UREA NITROGEN 20 MG/DL (7-18); CALCIUM LEVEL 7.9 MG/DL (8.8-10.2); CARBON DIOXIDE LEVEL 29 MEQ/L (21-32); CHLORIDE LEVEL 107 MEQ/L (98-107); CREATININE FOR GFR 1.06 MG/DL (0.70-1.30); GLOMERULAR FILTRATION RATE > 60.0 (>35); GLUCOSE, FASTING 124 MG/DL (70-100); PHOSPHORUS LEVEL 1.9 MG/DL (2.5-4.9); SODIUM LEVEL 140 MEQ/L (136-145)
[2019-04-18] MEDS: HumaLOG INSULIN (NovoLOG) PER UNIT SC SCH ×4 (06:05→17:06)
[2019-04-18] MEDS: PANTOPRAZOLE 40MG INJ (PROTONIX) (C9113) IV SCH ×2 (09:22→20:19)
[2019-04-18] MEDS: NYSTATIN 100,000 UNITS/GM TOPICAL PWD 15 GM TOP SCH ×2 (09:23→20:20)
[2019-04-18] MEDS: AMINO AC/ELECTROLYTE/DEX/CALC 1,000 ML IV SCH ×2 (09:42→18:53)
--- NOTE | 2019-04-18 10:04 | IPNPDOC ---
Date Seen The patient was seen on 04/18/19. Progress Note SUBJECTIVE: 83-year-old male with past medical history of hypertension, gout, rectal cancer status post resection and colostomy, diabetes mellitus, COPD, peripheral artery disease and hyperlipidemia was admitted for small bowel obstruction new onset atrial fibrillation and acute kidney injury. Patient was transferred to the ICU due to hypotension along with atrial fibrillation and rapid ventricular response, was treated with IV amiodarone. Patient's small bowel obstruction is being managed conservatively with NG tube placement and IV fluids with somewhat improvement and symptoms and ostomy output. Patient continues to have large output from NG tube and mild to moderate abdominal pain. There is no immediate plan for surgical intervention, acute kidney injury is improving with IV hydration. Patient denies any shortness of breath, chest pain, nausea, vomiting or urinary difficulty at this time. 04/14/19 Patient remains in the ICU due to lack of beds in PCU, increased gas production and small amount of stool, passing through the colostomy. Patient with these have significant NG tube output along with abdominal pain. Abdominal x-ray in the morning shows persistent distended loops of bowel, no immediate plan for surgical intervention at this time. Patient is without additional complaints, denies any shortness of breath, chest pain or urinary complaints. 04/15/19 Patient reports no change from yesterday, report mild abdominal discomfort, having minimal output from colostomy and high output from NGT. He is scheduled to undergo laparoscopy later today. He denies any SOB, CP or urinary difficulty. 04/16/19 Underwent laparoscopic release of obstructed parastomal hernia yesterday, continues to have minimal/absent ostomy output, still having moderate abdominal pain and high NGT output. Patient had an episode of Afib w/ RVR overnight requiring 3 additional doses of Metoprolol 5 mg IVP. No additional complaints at this time, denies SOB, CP or headache. Now has Noel catheter. 04/17/19 Patient continues to have abdominal pain, minimal gas output from ostomy, NG tube with considerable output, no additional complaints. 04/18/19 Patient with minimal change from yesterday, continues to have mild abdominal pain/discomfort, not passing any gas through the ostomy, NG tube output remains high. 10 point review of system is negative except for above PHYSICAL EXAMINATION: VITAL SIGNS: Please see below. GENERAL: No distress HEENT: Normocephalic, atraumatic, moist mucous membranes NECK: Supple CARDIOVASCULAR EXAMINATION: S1, S2, systolic murmur appreciated RESPIRATORY EXAMINATION: Clear to auscultation, no wheezing ABDOMINAL EXAMINATION: Soft, mild tenderness, mildly distended, hypoactive/absent bowel sounds, ostomy without any stool. EXTREMITIES: Range of motion intact SKIN: No rash NEUROLOGICAL EXAMINATION: Alert and oriented 3, no focal deficits PSYCHIATRIC EXAMINATION: Calm and cooperative LABORATORY DATA, IMAGING STUDIES, MICROBIOLOGY: Please see below. ASSESSMENT AND PLAN: 83-year-old male with an extensive past medical history, was admitted for small bowel obstruction, new onset atrial fibrillation and acute kidney injury. PROBLEMS: 1. Small bowel obstruction: No improvement with conservative management, s/p surgical release of parastomal hernia with lysis of adhesions, bowel sounds absent, possibly ileus, started on PPN with plan for TPN after PICC line placement tomorrow, maintain NGT to suction for now, continue IV hydration. 2. New onset atrial fibrillation: Anticoagulation with Lovenox 100 mg twice a day, rate reasonably controlled on IV metoprolol, digoxin on hold, cardiology following, remains in A. fib. 3. Acute kidney injury: had resolved with IV hydration, worsened postop due to surgical stress & insensible losses, now back to baseline with IV fluids. 4. Diabetes mellitus: Continue sliding scale coverage every 6 hours. DVT prophylaxis: On Lovenox. GI prophylaxis: PPI VS, I&O, 24H, Fishbone Vital Signs/I&O Vital Signs Date Time Temp Pulse Resp B/P (MAP) Pulse Ox O2 Delivery O2 Flow Rate FiO2 04/18/19 09:23 92 152/82 04/18/19 08:00 98.1 19 97 Nasal Cannula 1.0 I&O- Last 24 Hours up to 6 AM 04/18/19 05:59 Intake Total 2345 ml Output Total 1450 ml Balance 895 ml Laboratory Data 24H LABS Laboratory Tests 2 04/17/19 11:45: Bedside Glucose (Misc Panel) 124H 04/17/19 18:19: Bedside Glucose (Misc Panel) 121H 04/18/19 00:10: Bedside Glucose (Misc Panel) 94 04/18/19 05:18: Immature Granulocyte % (Auto) 1.4, Neutrophils (%) (Auto) 75.8H, Lymphocytes (%) (Auto) 10.4L, Monocytes (%) (Auto) 8.1H, Eosinophils (%) (Auto) 3.6H, Basophils (%) (Auto) 0.7, Neutrophils # (Auto) 7.0, Lymphocytes # (Auto) 1.0L, Monocytes # (Auto) 0.7, Eosinophils # (Auto) 0.3, Basophils # (Auto) 0.1, Nucleated Red B lood Cells % (auto) 0.0, Anion Gap 4L, Glomerular Filtration Rate > 60.0, Calcium Level 7.9L, Phosphorus Level 1.9#L, Magnesium Level 2.0 CBC/BMP Laboratory Tests 04/18/19 05:18 MRAK BANKS MD Apr 18, 2019 10:04
[2019-04-18] MEDS: ENOXAPARIN 100MG/1ML SYRINGE (J1650) SC SCH ×2 (11:51→21:10)
--- NOTE | 2019-04-18 12:44 | IPNPDOC ---
Text Note Date of Service The patient was seen on 04/18/19. NOTE Patient seen laying on bed, looks over all comfortable. Reports discomfort on abdomen, denies chest pain, shortness of breath. PT working with him. He reports he is only able to get up on bed take a few steps, feels weak. Nothing yet in the ostomy. Denies nausea. Reports starting to feel hungry. Not much change since yesterday though NGT output has started to come down. On exam: comfortable appearing lungs clear irregular heart rate (90s), irregular rhythm abdomen is globally distended, soft, hypoactive bowel sounds, right ostomy without any output. Port site incisions and hernia site incisions are clean, dry, intact. Tender to palpation, no focal area. Tympanitic mild LE edema POD3 extensive lysis of adhesions repair of parastomal and incisional ventral hernia colostomy status (permanent) s/p apr from rectal carcinoma deconditioned malnutrition atrial fibrillation with RVR No active bowel function yet, continue with NGT, npo continue with PT will start with PPn this , get picc line for friday and switch to TPN then hospitalists involved with getting his HR under control. will have PICC line placed. Entereg VS,Fishbone, I+O VS, Fishbone, I+O Laboratory Tests 04/18/19 05:18 Vital Signs Date Time Temp Pulse Resp B/P (MAP) Pulse Ox O2 Delivery O2 Flow Rate FiO2 04/18/19 09:23 92 152/82 04/18/19 08:00 1.0 04/18/19 08:00 98.1 19 97 Nasal Cannula I&O- Last 24 Hours up to 6 AM 04/18/19 06:00 Intake Total 5 ml Output Total 1050 ml Balance 975 ml ROMERO LUNA MD Apr 18, 2019 12:43
[2019-04-18] MEDS: ALVIMOPAN 12 MG CAPSULE (ENTEREG) PO SCH ×2 (13:15→20:11)
[2019-04-18] MEDS ORDERED: HumaLOG INSULIN (NovoLOG) PER UNIT SC SCH (18:00)
[2019-04-18] MEDS ORDERED: FAT EMULSION IV 20% 500 ML IV SCH (18:00)
--- NOTE | 2019-04-18 19:55 | IPN ---
DATE: 04/18/2019 SUBJECTIVE: The patient was seen and examined at the bedside today morning. The renal function continues to improve. Creatinine is down to 1.6. He has been started on peripheral parenteral nutrition. He reports that he is having some gas in the ostomy bag now. He is feeling hungry; however, he states continues to be on nasogastric tube (NGT) suctioning and he was started on peripheral parenteral nutrition by surgical service. IV fluid that was started yesterday has been stopped now. OBJECTIVE: Vital signs temperature is 98.1 degrees Fahrenheit, blood pressure 124/63, pulse is 94, respiratory of 90, saturating 97% on nasal cannula at 1 liter. Intake and output: Urine output recorded as 950 mL yesterday 150 mL so far today since overnight. Weight in the bed scale is 105 kg, which is stable. PHYSICAL EXAMINATION: General: The patient is awake, alert, oriented x3, laying in bed in no apparent distress. Head and neck exam: Extraocular muscles intact. Pupils equally round and reactive to light. Mucous membranes are moist. Neck is supple. There is no jugular venous distension (JVD). He has an NGT which is attached to suctioning and bilious fluid is coming out. Cardiovascular: S1, S2 regular rate. No edema of the bilateral lower extremities. Respiratory: Chest is clear to auscultation bilaterally. Bilateral equal air entry. No rales or rhonchi. Abdomen: Soft, distended, tender to deep palpation. Right lower quadrant colostomy is noted. Genitourinary: He has an indwelling Noel catheter. Musculoskeletal: The patient has tenderness to palpation of bilateral lower extremities because of peripheral neuropathy. SENIOR CLINICAL CONSULTANT: No focal deficit. Power is 5/5 in bilateral upper extremities. LABORATORY REVIEW: Complete blood count (CBC) showed a white blood count (WBC) of 9.2, hemoglobin 12.9, platelets are 132. Basic metabolic panel (BMP) showed sodium 140, potassium 4, chloride 107, bicarb 29, BUN 20, creatinine is 1.06, it was 1.34 yesterday, phosphorus is 1.9, magnesium is 2. CURRENT INPATIENT MEDICATIONS. The patient's medications were all reviewed by me. IV fluids have been stopped. He has been started on peripheral parenteral nutrition at 70 mL an hour along with fat emulsion. He has been started on Lovenox as well subcutaneous. No other change in the medications today as compared with yesterday. ASSESSMENT/PLAN: 1. Acute kidney injury. It was secondary to dehydration. Renal function is improving with IV fluid hydration, IV fluids have been stopped now since the patient has been started on peripheral parenting nutrition. 2. Protein calorie malnutrition. The patient is on PPN now He is going to get a PICC line and start PPN tomorrow morning. 3. Hypophosphatemia. The patient has been started on PPN now. I would not give any extra phosphorus dose. Further adjustment of the phosphorus will be done according to the levels tomorrow morning. 4. Atrial fibrillation. The patient has been anticoagulated with Lovenox now. He continues to be on IV metoprolol. Cardiology is following the patient. 5. Small-bowel obstruction. The patient continues to have nasogastric tube (NGT) suctioning. He reports that he is feeling hungry now. Surgical service is following him for peripheral parenteral nutrition (PPN).
[2019-04-19] MEDS: METOPROLOL 5 MG/5 ML VIAL IV SCH ×4 (02:08→20:32)
[2019-04-19] MEDS: MORPHINE 2 MG/ML 1ML VIAL (J2270) IV PRN ×3 (04:26→14:57)
[2019-04-19 04:45] VITALS: BP 141/78
[2019-04-19] MEDS: HumaLOG INSULIN (NovoLOG) PER UNIT SC SCH ×5 (05:26→23:53)
[2019-04-19 05:41] LABS: BASO # 0.1 10^3/uL (0.0-0.2); BASO % 0.9 % (0.0-1.0); EOS # 0.3 10^3/uL (0.0-0.5); EOS % 3.8 % (0.0-3.0); HEMATOCRIT 42.4 % (42.0-52.0); HEMOGLOBIN 13.2 g/dl (13.5-17.5); LYMPH # 1.1 10^3/uL (1.5-5.0); LYMPH % 15.4 % (24.0-44.0); MEAN CORPUSCULAR HEMOGLOBIN 30.7 pg (27.0-33.0); MEAN CORPUSCULAR HGB CONC 31.1 g/dl (32.0-36.5); MEAN CORPUSCULAR VOLUME 98.6 fl (80.0-96.0); MONO # 0.5 10^3/uL (0.0-0.8); MONO % 7.4 % (0.0-5.0); NEUTROPHILS # 4.9 10^3/uL (1.5-8.5); NEUTROPHILS % 71.2 % (36.0-66.0); PLATELET COUNT, AUTOMATED 131 10^3/uL (150-450); WHITE BLOOD COUNT 6.9 10^3/uL (4.0-10.0)
[2019-04-19 06:24] LABS: BLOOD UREA NITROGEN 18 MG/DL (7-18); CALCIUM LEVEL 8.2 MG/DL (8.8-10.2); CARBON DIOXIDE LEVEL 28 MEQ/L (21-32); CHLORIDE LEVEL 104 MEQ/L (98-107); CREATININE FOR GFR 0.82 MG/DL (0.70-1.30); DIGOXIN LEVEL 0.6 NG/ML (0.5-2.0); GLOMERULAR FILTRATION RATE > 60.0 (>35); GLUCOSE, FASTING 114 MG/DL (70-100); POTASSIUM SERUM 3.8 MEQ/L (3.5-5.1); SODIUM LEVEL 138 MEQ/L (136-145)
[2019-04-19 08:00] VITALS: BP 127/86
[2019-04-19 08:15] LABS: PHOSPHORUS LEVEL 2.2 MG/DL (2.5-4.9)
--- NOTE | 2019-04-19 08:31 | IPN ---
DATE: 04/19/2019 Mr. Gore's condition over the weekend did not appreciably change. He continues to be optimistic even though not as much as he was last week. Unfortunately he did not make much progress with his oral intake and still has NG tube in place that is suctioning large amount of gastrointestinal (GI) juices. Denies any chest pain or shortness of breath but does complain about abdominal pain. He has not been getting out of bed much. Vital signs: Blood pressure 141/78, heart rate has been from 80s to 100 and teens, atrial fibrillation, afebrile. Saturation 96% on room air. Weight has not been recorded today as yet, but yesterday it was 105. His jugular venous pulse (JVP) is difficult to probate judge, does not appear high though. Lungs reveal diminished breath sounds over bases on both sides. Heart exam reveals irregularly irregular rhythm. No appreciable gallop or rub. Abdomen is mildly distended, soft but diffusely tender. I do not appreciate distinct guarding. Bowel sounds are present even though somewhat delayed. There is very prominent bilateral stasis dermatitis, but only minimal amount of edema. LABORATORY: CBC - hemoglobin 13.2, hematocrit 42, platelet count 131,000. Basic metabolic panel is essentially normal. Glucose 114. ASSESSMENT AND PLAN: Mr. Gore is a 83-year-old man with hypertensive heart disease but no prior history of atrial fibrillation who presented with small bowel obstruction and atrial fibrillation with rapid ventricular response (RVR). He underwent surgical intervention and is still slow to recover. Unfortunately the management of arrhythmia is difficult on account of inability of administering medications orally. He is maintained on combination of metoprolol and digoxin and the heart rate seems to be reasonably well-controlled. Lovenox 1 mg/kg twice a day is being administered to prevent stroke. Once we can make transition to by mouth then certainly the medications will be changed. Otherwise I do not have much else new to add to his management.
[2019-04-19] MEDS: ALVIMOPAN 12 MG CAPSULE (ENTEREG) PO SCH ×2 (08:35→20:32)
[2019-04-19] MEDS: PANTOPRAZOLE 40MG INJ (PROTONIX) (C9113) IV SCH ×2 (08:35→20:32)
[2019-04-19] MEDS: NYSTATIN 100,000 UNITS/GM TOPICAL PWD 15 GM TOP SCH ×2 (08:36→20:32)
[2019-04-19] MEDS: AMINO AC/ELECTROLYTE/DEX/CALC 1,000 ML IV SCH (09:21)
--- NOTE | 2019-04-19 11:04 | REP ---
KUB: Three views presented. History: Ileus versus small bowel obstruction. Comparison study: April 14, 2019. Findings: A nasogastric tube is seen in the gastric fundus. There are surgical clips in the pelvis. There is evidence of an enterostomy in the right lower quadrant. There are multiple loops of small bowel. Several dilated loops of small bowel are again noted in the left mid abdomen. There is air and stool in the colon. I cannot exclude partial small bowel obstruction. Findings are quite similar to the previous study April 14, 2019. Electronically Signed by Aleksander Chavez MD 04/19/2019 10:56 A
--- NOTE | 2019-04-19 11:20 | IPNPDOC ---
Subjective Date Seen The patient was seen on 04/19/19. Subjective Chief Complaint/HPI Patient is still has abdominal pain. An NG tube is in place General: Denies: ROS Unobtainable, Chills, Night Sweats, Fatigue, Malaise, Normal Appetite, Other Symptoms Constitutional: Denies: Chills, Fever, Malaise, Night Sweats, Weakness, Fatigue, Weight Loss, Lethargy, Other Pulmonary: Denies: Dyspnea, Cough, Pleuritic Chest Pain, Other Symptoms Cardiovascular: Denies: Chest Pain, Palpitations, Orthopnea, Paroxysmal Noc. Dyspnea, Edema, Lt Headedness, Other Symptoms Gastrointestinal: Reports: Abdominal Pain Musculoskeletal: Denies: Neck Pain, Back Pain, Shoulder Pain, Arm Pain, Hand Pain, Leg Pain, Foot Pain, Joint Pain, Muscle Pain, Spasms, Other Symptoms Neurological: Denies: Weakness, Numbness, Incoordination, Change in speech, Confusion, Seizures, Other Symptoms Objective Physical Examination Neck Exam: Positive: Supple Chest Exam: Positive: Clear to auscultation, Normal air movement Heart Exam: Positive: Tachycardic, Irregular Rhythm Telemetry: Positive: Atrial fibrillation Abdomen Exam: Positive: Tenderness (. Positive tenderness all over the abdomen on palpation) Extremity Exam: Positive: Normal pulses, Other (chronic discoloration of bilateral lower extremities) Skin Exam: Positive: Nl turgor and temperature Neuro Exam: Positive: Other (, mostly all extremities) Psych Exam: Positive: Mental status NL, Mood NL Assessment /Plan Problems (1) SBO (small bowel obstruction) Status: Acute Problem Text: Small bowel obstruction: No improvement with conservative management, s/p surgical release of parastomal hernia with lysis of adhesions, bowel sounds absent, possibly ileus, maintain NGT to suction for now, continue IV hydration. PICC line to be placed in today, and patient will be started on TPN by surgery ARU EVAL (2) New onset atrial fibrillation Status: Acute Problem Text: Anticoagulation with Lovenox 100 mg twice a day, rate reasonably controlled on IV metoprolol, digoxin on hold, cardiology following, remains in A. fib. (3) Acute kidney injury superimposed on CKD Status: Acute Problem Text: SONA had resolved with IV hydration, worsened postop due to surgical stress & insensible losses, now back to baseline with IV fluids. (4) Diabetes mellitus Status: Chronic Problem Text: Patient on fingerstick blood sugar every 6 hours and coverage Plan/VTE VTE Prophylaxis Ordered?: Yes VS, I&O, 24H, Fishbone Vital Signs/I&O Vital Signs Date Time Temp Pulse Resp B/P (MAP) Pulse Ox O2 Delivery O2 Flow Rate FiO2 04/19/19 11:10 16 Nasal Cannula 2.0 04/19/19 08:34 96 127/86 04/19/19 08:00 97.6 96 I&O- Last 24 Hours up to 6 AM 04/19/19 06:00 Intake Total 1620 ml Output Total 2350 ml Balance -730 ml Laboratory Data 24H LABS Laboratory Tests 2 04/18/19 11:29: Bedside Glucose (Misc Panel) 113H 04/18/19 16:57: Bedside Glucose (Misc Panel) 100 04/19/19 00:09: Bedside Glucose (Misc Panel) 104 04/19/19 05:05: Immature Granulocyte % (Auto) 1.3, Neutrophils (%) (Auto) 71.2H, Lymphocytes (%) (Auto) 15.4L, Monocytes (%) (Auto) 7.4H, Eosinophils (%) (Auto) 3.8H, Basophils (%) (Auto) 0.9, Neutrophils # (Auto) 4.9, Lymphocytes # (Auto) 1.1L, Monocytes # (Auto) 0.5, Eosinophils # (Auto) 0.3, Basophils # (Auto) 0.1, Nucleated Red Blood Cells % (auto) 0.0, Anion Gap 6L, Glomerular Filtration Rate > 60.0, Calcium Level 8.2L, Phosphorus Level 2.2L, Magnesium Level 2.0, Digoxin Level 0.6 04/19/19 05:26: Bedside Glucose (Misc Panel) 111H CBC/BMP Laboratory Tests 04/19/19 05:05 SEBAS CATES MD Apr 19, 2019 11:20
[2019-04-19 12:00] VITALS: BP 127/70
[2019-04-19] MEDS ORDERED: LIDOCAINE 1% MDV 20ML VIAL As Ordered ONE (15:03)
[2019-04-19 16:55] VITALS: BP 132/77
[2019-04-19] MEDS ORDERED: FAT EMULSION IV 20% 500 ML IV SCH (18:00)
[2019-04-19] MEDS ORDERED: AMINO AC/ELECTROLYTE/DEX/CALC 2,000 ML IV SCH (18:00)
[2019-04-19] MEDS: SODIUM CHLORIDE 0.9% INJ 10 ML SYR IV SCH (18:50)
--- NOTE | 2019-04-19 19:53 | REP ---
PICC line insertion under ultrasound guidance. The procedure was performed by EDGARDO Hudson, under the direct supervision of Dr. Chavez. The risks and benefits of the procedure were explained to the patient and informed consent was obtained both verbally and written. Directly prior to the start of the procedure, a formal timeout was completed in the procedure room. The left medial brachial vein was localized using ultrasound guidance. The skin was prepped and draped in the sterile fashion. 2 ml 1% lidocaine 10 mg/ml was used as a local anesthetic. Using ultrasound guidance the left medial brachial vein was cannulated and a 0.018 guidewire was inserted and advanced to the SVC using fluoroscopic guidance. The needle was removed and a 5.5 Guyanese dilator and peel-away sheath was inserted over the guidewire. A 5.5 Guyanese double lumen catheter was cut to the length of 40 cm. The dilator was removed and the catheter was inserted over the guide wire with the tip ending in the SVC. The peel-away sheath was removed and the catheter was flushed with heparinized saline as per hospital protocol. The catheter was affixed to the skin and a sterile dressing was applied. The patient tolerated the procedure well and there were no immediate complications. 0.0 minutes of fluoroscopy time was utilized for this procedure. Some fluoroscopic images are performed with last image hold technology. These images require no additional radiation. Reviewed by EDGARDO Montero 04/19/2019 05:30 P Electronically Signed by Aleksander Chavez MD 04/19/2019 07:43 P
[2019-04-19 20:00] VITALS: BP 119/81
[2019-04-19] MEDS: ENOXAPARIN 100MG/1ML SYRINGE (J1650) SC SCH (20:32)
[2019-04-19 23:59] VITALS: BP 144/68
[2019-04-20] MEDS: METOPROLOL 5 MG/5 ML VIAL IV SCH ×4 (02:49→20:36)
[2019-04-20 04:00] VITALS: BP 134/78
[2019-04-20 05:22] LABS: BASO # 0.1 10^3/uL (0.0-0.2); BASO % 0.7 % (0.0-1.0); EOS # 0.3 10^3/uL (0.0-0.5); EOS % 3.5 % (0.0-3.0); HEMATOCRIT 44.6 % (42.0-52.0); HEMOGLOBIN 14.1 g/dl (13.5-17.5); LYMPH # 0.9 10^3/uL (1.5-5.0); LYMPH % 11.7 % (24.0-44.0); MEAN CORPUSCULAR HEMOGLOBIN 30.5 pg (27.0-33.0); MEAN CORPUSCULAR HGB CONC 31.6 g/dl (32.0-36.5); MEAN CORPUSCULAR VOLUME 96.5 fl (80.0-96.0); MONO # 0.6 10^3/uL (0.0-0.8); MONO % 8.6 % (0.0-5.0); NEUTROPHILS # 5.4 10^3/uL (1.5-8.5); NEUTROPHILS % 74.4 % (36.0-66.0); PLATELET COUNT, AUTOMATED 159 10^3/uL (150-450); RED BLOOD COUNT 4.62 10^6/uL (4.30-6.10); WHITE BLOOD COUNT 7.2 10^3/uL (4.0-10.0)
--- NOTE | 2019-04-20 05:39 | IPN ---
MARY GRACE OF VISIT: 04/19/2019 SUBJECTIVE: The patient was seen and examined at the bedside today morning. He was getting ready to go to radiology when I saw him. His renal function continues to improve, creatinine is down to 0.8. He continues to be on total parenteral nutrition (TPN). He is going to have his peripherally inserted center catheter (PICC) line switched today to total quadrant nutrition. OBJECTIVE: Vital signs: Temperature is 97.2 degrees Fahrenheit, blood pressure 132/77, pulse is 66, respiratory rate of 18, saturating 96% on nasal cannula at two liters. Intake and output: Urine output recorded is 650 mL yesterday, 1125 mL so far today. Weight in the bed scale was 105 kg yesterday. PHYSICAL EXAMINATION: General: The patient is awake, alert, oriented times three, laying in bed, no apparent distress. Head/Neck: Extraocular muscles intact. Pupils equally round and reactive to light. Neck is supple. There is no jugular venous distention (JVD). He has an nasogastric tube (NG T). Cardiovascular: S1. S2. regular rate. No edema of the bilateral lower extremities. Respiratory: Chest is clear to auscultation bilaterally. Bilateral equal air entry. No rales or rhonchi. Abdomen: Soft, distended. Decreased bowel sounds. Right lower quadrant colostomy and tenderness to deep palpation. Genitourinary: He has an indwelling Noel catheter. Musculoskeletal: Tenderness to lower extremities on deep palpation. Central nervous system ([employer]): No focal deficit, power is 5/5 in all extremities. LABORATORY REVIEW: CBC showed WBC of 6.9, hemoglobin 13.2, platelets are 131. BMP: Sodium 138, potassium 3.8, chloride 104, bicarb 28, BUN 18, creatinine is 0.82, calcium is 8.2, phosphorus is 2.2, magnesium 2. IMAGING STUDIES: The patient got an x-ray of the abdomen done which showed a nasogastric tube, several dilated loops of small bowel, minimal change from the previous x-ray. CURRENT INPATIENT MEDICATIONS: The patient's medications were all reviewed by me. - he continues to be on IV total parenteral nutrition (TPN) - Lovenox dose continues to be 100 mg subcu every 12 hourly - he continues to be on IV metoprolol. No other change in the medications today as compared with yesterday. ASSESSMENT/PLAN: 1. Acute kidney injury. It was secondary to dehydration and volume depletion. This patient was unable to drink and he had nasogastric tubed (NG T) suctioning. The patient's renal function is significantly better. Initially he was given IV fluids and now he is on TPN. Creatinine has improved to 0.8 now. 2. Protein calorie malnutrition. The patient was getting TPN so far today morning. He is going to have a peripherally inserted center catheter (PICC) line and he will start TPN and it will be ordered by the surgical service. 3. Hypophosphatemia. Phosphorus level will improve with the parenteral nutrition. 4. Atrial fibrillation. Heart rate is controlled with IV metoprolol and he is being anticoagulated with Lovenox. 5. Small bowel obstruction. Repeat x-ray abdomen does not show much improvement. The patient continues to be an NG T suctioning. TPN management is as per surgical team. DISPOSITION: The patient's renal function has improved close to baseline. Electrolytes are within the acceptable range and they should improve with parenteral nutrition. The nephrology service is going to sign off at this moment. Please call the nephrology service for any help in the management of this patient during this hospitalization.
[2019-04-20 05:44] LABS: BLOOD UREA NITROGEN 18 MG/DL (7-18); CALCIUM LEVEL 8.3 MG/DL (8.8-10.2); CARBON DIOXIDE LEVEL 31 MEQ/L (21-32); CHLORIDE LEVEL 105 MEQ/L (98-107); CREATININE FOR GFR 0.79 MG/DL (0.70-1.30); GLOMERULAR FILTRATION RATE > 60.0 (>35); GLUCOSE, FASTING 158 MG/DL (70-100); MAGNESIUM LEVEL 1.8 MG/DL (1.8-2.4); POTASSIUM SERUM 3.5 MEQ/L (3.5-5.1); SODIUM LEVEL 140 MEQ/L (136-145)
[2019-04-20] MEDS: HumaLOG INSULIN (NovoLOG) PER UNIT SC SCH ×3 (06:27→18:02)
[2019-04-20] MEDS: SODIUM CHLORIDE 0.9% INJ 10 ML SYR IV SCH ×2 (06:27→18:03)
[2019-04-20 08:00] VITALS: BP 132/78
--- NOTE | 2019-04-20 08:14 | IPN ---
DATE: 04/20/2019 Mr. Gore seems to be losing some of his enthusiam. It has been long for him in the hospital, but nevertheless the overall demeanor remains upbeat. Denies any cardiovascular symptoms. The abdominal discomfort is subsiding slowly. Vital Signs: Blood pressure 134/78, heart rate has been in 70s to 110s, atrial fibrillation, saturation 97% on 2 liters. Blood pressure 134/78. Fluid balance yesterday was recorded about negative 600. He is receiving total parenteral nutrition (TPN). Weight was recorded 105.9. He is alert, oriented and appropriate. His jugular venous pulse (JVP) is not high. Lungs are reasonably clear to auscultation. Heart exam irregular rhythm. No gallop or rub. Abdomen is distended mildly. It is still diffusely tender. I do appreciate a bowel sounds, even though they are not very active. There is gas in the colostomy bag. Extremities unchanged. Laboratories: CBC is normal. Basic metabolic panel is also normal. ASSESSMENT/PLAN: Mr. Gore is an 83-year-old man who presented with small bowel obstruction and was found to be in atrial fibrillation with rapid ventricular response. He eventually underwent surgical intervention after conservative attempts to resolve the obstruction failed. He is now four days postoperatively and so far still NG tube is in place and draining a lot of biliary and stomach juices. Management in this regard is by surgery. As far as the atrial fibrillation is concerned, he is reasonably well-controlled on only IV doses of IV metoprolol and has been anticoagulated with Lovenox. We are waiting for his GI tract to start working so we can transition him to oral medications. I will plan to see him on an outpatient basis in followup, but at this point there is not much I can contribute to his management. I am going to sign off of his care. Please call me if further assistance is desired.
[2019-04-20] MEDS: ENOXAPARIN 100MG/1ML SYRINGE (J1650) SC SCH ×2 (08:44→20:37)
[2019-04-20] MEDS: NYSTATIN 100,000 UNITS/GM TOPICAL PWD 15 GM TOP SCH ×2 (08:44→20:37)
[2019-04-20] MEDS: ALVIMOPAN 12 MG CAPSULE (ENTEREG) PO SCH ×2 (08:44→20:36)
[2019-04-20] MEDS: PANTOPRAZOLE 40MG INJ (PROTONIX) (C9113) IV SCH ×2 (08:44→20:36)
--- NOTE | 2019-04-20 10:20 | IPNPDOC ---
Subjective Date Seen The patient was seen on 04/20/19. Subjective Chief Complaint/HPI Patient NG tube is draining. He is on TPN. He offers no new complaints at the present time General: Denies: ROS Unobtainable, Chills, Night Sweats, Fatigue, Malaise, Normal Appetite, Other Symptoms Constitutional: Denies: Chills, Fever, Malaise, Night Sweats, Weakness, Fatigue, Weight Loss, Lethargy, Other Pulmonary: Denies: Dyspnea, Cough, Pleuritic Chest Pain, Other Symptoms Cardiovascular: Denies: Chest Pain, Palpitations, Orthopnea, Paroxysmal Noc. Dyspnea, Edema, Lt Headedness, Other Symptoms Gastrointestinal: Denies: Nausea, Vomiting, Abdominal Pain, Diarrhea, Constipation, Melena, Hematochezia, Other Symptoms Musculoskeletal: Denies: Neck Pain, Back Pain, Shoulder Pain, Arm Pain, Hand Pain, Leg Pain, Foot Pain, Joint Pain, Muscle Pain, Spasms, Other Symptoms Neurological: Denies: Weakness, Numbness, Incoordination, Change in speech, Confusion, Seizures, Other Symptoms Psych: Denies: Mood Normal, Anxiety, Depression, Memory Issues, Thoughts of Self Harm, Anger, Thoughts of Harming Other, Other Psych Objective Physical Examination Neck Exam: Positive: Supple Chest Exam: Positive: Clear to auscultation, Normal air movement Heart Exam: Positive: Tachycardic, Irregular Rhythm Telemetry: Positive: Atrial fibrillation Abdomen Exam: Positive: Tenderness (. Positive tenderness all over the abdomen on palpation) Extremity Exam: Positive: Normal pulses, Other (chronic discoloration of bilateral lower extremities) Skin Exam: Positive: Nl turgor and temperature Neuro Exam: Positive: Other (, mostly all extremities) Psych Exam: Positive: Mental status NL, Mood NL Assessment /Plan Problems (1) SBO (small bowel obstruction) Status: Acute Problem Text: PICC line was placed and yesterday and is started on TPN No improvement and SBO at the present time. Further, as per surgery Will continue TPN as patient has a large amount of secretion drained by NG tube today Continue IV hydration (2) New onset atrial fibrillation Status: Acute Problem Text: Anticoagulation with Lovenox 100 mg twice a day, rate reasonably controlled on IV metoprolol, digoxin on hold, cardiology following, remains in A. fib. (3) Acute kidney injury superimposed on CKD Status: Acute Problem Text: SONA had resolved with IV hydration, worsened postop due to surgical stress & insensible losses, now back to baseline with IV fluids. (4) Diabetes mellitus Status: Chronic Problem Text: Patient on fingerstick blood sugar every 6 hours and coverage Plan/VTE VTE Prophylaxis Ordered?: Yes VS, I&O, 24H, Fishbone Vital Signs/I&O Vital Signs Date Time Temp Pulse Resp B/P (MAP) Pulse Ox O2 Delivery O2 Flow Rate FiO2 04/20/19 08:44 92 132/78 04/20/19 08:00 97.3 20 97 Nasal Cannula 2.0 I&O- Last 24 Hours up to 6 AM 04/20/19 06:00 Intake Total 2190 ml Output Total 2375 ml Balance -185 ml Laboratory Data 24H LABS Laboratory Tests 2 04/19/19 12:11: Bedside Glucose (Misc Panel) 112H 04/19/19 17:55: Bedside Glucose (Misc Panel) 119H 04/19/19 23:49: Bedside Glucose (Misc Panel) 141H 04/20/19 05:05: Immature Granulocyte % (Auto) 1.1, Neutrophils (%) (Auto) 74.4H, Lymphocytes (%) (Auto) 11.7L, Monocytes (%) (Auto) 8.6H, Eosinophils (%) (Auto) 3.5H, Basophils (%) (Auto) 0.7, Neutrophils # (Auto) 5.4, Lymphocytes # (Auto) 0.9L, Monocytes # (Auto) 0.6, Eosinophils # (Auto) 0.3, Basophils # (Auto) 0.1, Nucleated Red Blood Cells % (auto) 0.0, Anion Gap 4L, Glomerular Filtration Rate > 60.0, Calcium Level 8.3L, Magnesium Level 1.8 04/20/19 06:16: Bedside Glucose (Misc Panel) 161H CBC/BMP Laboratory Tests 04/20/19 05:05 SEBAS CATES MD Apr 20, 2019 10:20
[2019-04-20 12:00] VITALS: BP 141/88
[2019-04-20] MEDS: MORPHINE 2 MG/ML 1ML VIAL (J2270) IV PRN (12:17)
[2019-04-20 16:00] VITALS: BP 136/68
--- NOTE | 2019-04-20 16:56 | IPN ---
DATE OF VISIT: 04/16/2019 Mr. Gore is seen this morning on his bedside. He underwent a laparoscopic procedure for his small bowel obstruction and a parastomal hernia was reduced. His colostomy is still not functioning and he still has a nasogastric tube hooked to low intermittent suction. Patient denies any dyspnea or chest pain. He remains on IV fluids at 100 mL/h. On physical exam, temperature 97.5 degrees Fahrenheit, heart rate 105 per minute and respiratory rate 18 per minute. Blood pressure 132/79 mmHg and oxygen saturation is 93% on 4 liters of oxygen. His head is atraumatic. Neck supple and jugular venous distention (JVD) does not seem to be abnormally elevated. Lungs have slightly diminished breath sounds. Heart sounds are tachycardiac. Abdomen is more distended today compared with yesterday and bowel sounds are not audible. Colostomy is still not functioning. Extremities have no cyanosis or clubbing. Neurologically he is awake, alert and at his baseline mentation. Today's labs show sodium 145, potassium 4.9, CO2 26, BUN 42 and creatinine 1.71. Glucose 82, calcium 7.2 and phosphorus 6.2. Magnesium level was 1.8. WBC count is 11.1, hemoglobin 15.5 and hematocrit 51.3. PROBLEMS: 1. Acute kidney injury superimposed on chronic kidney disease. Initially his kidney function has improved with creatinine down to 1.16 yesterday. I am surprised to see increase in the creatinine today. I have ordered a repeat renal profile, since 8 o'clock, . At this point, he remains on IV fluid half normal saline with 10 mEq of potassium chloride 100 mL/h. We will try to get another renal profile drawn, however, . 2. Small bowel obstruction. Patient had a parastomal hernia causing small bowel obstruction and had his hernia reduced yesterday. His bowels are not working and colostomy still not putting out anything. He is still with nasogastric tube suctioning and continues with IV fluid. Other issues are being addressed by surgery and hospitalist service.
[2019-04-20] MEDS ORDERED: AMINO AC/ELECTROLYTE/DEX/CALC 2,000 ML IV SCH (18:00)
[2019-04-20] MEDS ORDERED: FAT EMULSION IV 20% 500 ML IV SCH (18:00)
[2019-04-20 20:00] VITALS: BP 149/71
[2019-04-20 23:59] VITALS: BP 135/71
[2019-04-21] VITALS (16 sets, daily range): BP systolic 123–155; BP diastolic 64–91
[2019-04-21] MEDS: HumaLOG INSULIN (NovoLOG) PER UNIT SC SCH ×5 (00:33→23:54)
[2019-04-21] MEDS: METOPROLOL 5 MG/5 ML VIAL IV SCH ×4 (01:35→20:33)
[2019-04-21 05:12] LABS: BASO % 0.6 % (0.0-1.0); EOS # 0.2 10^3/uL (0.0-0.5); EOS % 3.3 % (0.0-3.0); HEMATOCRIT 41.2 % (42.0-52.0); HEMOGLOBIN 13.6 g/dl (13.5-17.5); LYMPH % 14.5 % (24.0-44.0); MEAN CORPUSCULAR HEMOGLOBIN 31.3 pg (27.0-33.0); MEAN CORPUSCULAR VOLUME 94.9 fl (80.0-96.0); MONO # 0.7 10^3/uL (0.0-0.8); NEUTROPHILS # 4.6 10^3/uL (1.5-8.5); NEUTROPHILS % 69.5 % (36.0-66.0); PLATELET COUNT, AUTOMATED 183 10^3/uL (150-450); RED BLOOD COUNT 4.34 10^6/uL (4.30-6.10); WHITE BLOOD COUNT 6.6 10^3/uL (4.0-10.0)
[2019-04-21 05:35] LABS: ALBUMIN 1.9 GM/DL (3.2-5.2); ALT/SGPT 28 U/L (12-78); BILIRUBIN,TOTAL 0.6 MG/DL (0.2-1.0); BLOOD UREA NITROGEN 18 MG/DL (7-18); CALCIUM LEVEL 8.6 MG/DL (8.8-10.2); CARBON DIOXIDE LEVEL 32 MEQ/L (21-32); CHLORIDE LEVEL 105 MEQ/L (98-107); GLOMERULAR FILTRATION RATE > 60.0 (>35); GLUCOSE, FASTING 142 MG/DL (70-100); MAGNESIUM LEVEL 1.8 MG/DL (1.8-2.4); POTASSIUM SERUM 3.3 MEQ/L (3.5-5.1); SODIUM LEVEL 140 MEQ/L (136-145); TOTAL PROTEIN 5.8 GM/DL (6.4-8.2)
[2019-04-21] MEDS: SODIUM CHLORIDE 0.9% INJ 10 ML SYR IV SCH ×2 (06:06→18:00)
[2019-04-21] MEDS: ENOXAPARIN 100MG/1ML SYRINGE (J1650) SC SCH ×2 (09:19→20:34)
[2019-04-21] MEDS: PANTOPRAZOLE 40MG INJ (PROTONIX) (C9113) IV SCH ×2 (09:19→20:33)
[2019-04-21] MEDS: ALVIMOPAN 12 MG CAPSULE (ENTEREG) PO SCH ×2 (09:20→20:33)
[2019-04-21] MEDS: KCL 10MEQ/100ML SWI (KRUN) 10 MEQ in IV 1 EA IV SCH ×2 (09:20→10:42)
[2019-04-21] MEDS: NYSTATIN 100,000 UNITS/GM TOPICAL PWD 15 GM TOP SCH ×2 (09:20→20:34)
--- NOTE | 2019-04-21 10:41 | IPNPDOC ---
Subjective Date Seen The patient was seen on 04/21/19. Subjective Chief Complaint/HPI Patient is comfortable in no distress. Daughter is at bedside General: Denies: ROS Unobtainable, Chills, Night Sweats, Fatigue, Malaise, Normal Appetite, Other Symptoms Constitutional: Denies: Chills, Fever, Malaise, Night Sweats, Weakness, Fatigue, Weight Loss, Lethargy, Other Pulmonary: Denies: Dyspnea, Cough, Pleuritic Chest Pain, Other Symptoms Cardiovascular: Denies: Chest Pain, Palpitations, Orthopnea, Paroxysmal Noc. Dyspnea, Edema, Lt Headedness, Other Symptoms Gastrointestinal: Denies: Nausea, Vomiting, Abdominal Pain, Diarrhea, Constipation, Melena, Hematochezia, Other Symptoms Genitourinary: Denies: Dysuria, Frequency, Incontinence, Hematuria, Retention, Other Symptoms Hematologic: Denies: Bruising, Bleeding Excessively, Petecchia, Purpura, Enlarged Lymph Nodes, Other Hematologic Musculoskeletal: Denies: Neck Pain, Back Pain, Shoulder Pain, Arm Pain, Hand Pain, Leg Pain, Foot Pain, Joint Pain, Muscle Pain, Spasms, Other Symptoms Neurological: Denies: Weakness, Numbness, Incoordination, Change in speech, Confusion, Seizures, Other Symptoms Objective Physical Examination Neck Exam: Positive: Supple Chest Exam: Positive: Clear to auscultation, Normal air movement Heart Exam: Positive: Tachycardic, Irregular Rhythm Telemetry: Positive: Atrial fibrillation Abdomen Exam: Positive: Tenderness (, tenderness present all over the abdomen on palpation) Extremity Exam: Positive: Normal pulses, Other (chronic discoloration of bilateral lower extremities) Skin Exam: Positive: Nl turgor and temperature Neuro Exam: Positive: Other (, mostly all extremities) Psych Exam: Positive: Mental status NL, Mood NL Assessment /Plan Problems (1) SBO (small bowel obstruction) Status: Acute Problem Text: PICC line was placed and yesterday and is started on TPN NG tube has been clamped, patient is doesn't still have a tenderness on abdomen on palpation Bowel sounds still not audible on auscultation Further, as per surgery's recommendations Continue TPN and IV hydration (2) New onset atrial fibrillation Status: Acute Problem Text: Anticoagulation with Lovenox 100 mg twice a day, rate reasonably controlled on IV metoprolol, digoxin on hold, cardiology following, remains in A. fib. (3) Acute kidney injury superimposed on CKD Status: Acute Problem Text: SONA had resolved with IV hydration, worsened postop due to surgical stress & insensible losses, now back to baseline with IV fluids. (4) Diabetes mellitus Status: Chronic Problem Text: Patient on fingerstick blood sugar every 6 hours and coverage Plan/VTE VTE Prophylaxis Ordered?: Yes VS, I&O, 24H, Fishbone Vital Signs/I&O Vital Signs Date Time Temp Pulse Resp B/P (MAP) Pulse Ox O2 Delivery O2 Flow Rate FiO2 04/21/19 09:21 82 149/64 04/21/19 08:00 97.2 20 94 Room Air 04/20/19 12:00 I&O- Last 24 Hours up to 6 AM 04/21/19 06:00 Intake Total 2050 ml Output Total 3700 ml Balance -1650 ml Laboratory Data 24H LABS Laboratory Tests 2 04/20/19 12:02: Bedside Glucose (Misc Panel) 157H 04/20/19 17:44: Bedside Glucose (Misc Panel) 132H 04/21/19 00:29: Bedside Glucose (Misc Panel) 136H 04/21/19 04:29: Immature Granulocyte % (Auto) 1.1, Neutrophils (%) (Auto) 69.5H, Lymphocytes (%) (Auto) 14.5L, Monocytes (%) (Auto) 11.0H, Eosinophils (%) (Auto) 3.3H, Basophils (%) (Auto) 0.6, Neutrophils # (Auto) 4.6, Lymphocytes # (Auto) 1.0L, Monocytes # (Auto) 0.7, Eosinophils # (Auto) 0.2, Basophils # (Auto) 0.0, Nucleated Red Blood Cells % (auto) 0.0, Anion Gap 3L, Glomerular Filtration Rate > 60.0, Calcium Level 8.6L, Magnesium Level 1.8, Total Bilirubin 0.6, Aspartate Amino Transf (AST/SGOT) 30, Alanine Aminotransferase (ALT/SGPT) 28, Alkaline Phosphatase 34L, Total Protein 5.8L, Albumin 1.9L, Albumin/Globulin Ratio 0.49L 04/21/19 05:59: Bedside Glucose (Misc Panel) 145H CBC/BMP Laboratory Tests 04/21/19 04:29 SEBAS CATES MD Apr 21, 2019 10:41
[2019-04-21] MEDS: SODIUM CHLORIDE 0.9% INJ 10 ML SYR IV PRN (11:54)
--- NOTE | 2019-04-21 15:00 | IPN ---
DATE: 04/21/2019 HISTORY: The patient is now postop day 6 from laparoscopic lysis of adhesions and repair of incarcerated parastomal hernia with placement of mesh. Yesterday he had a bowel movement noted and reported some passage of gas from his ostomy bag. He also had some stool passed on the . He appears to be feeling better and is alert and even jovial as usual. Vital signs show that his pulse has varied between about 60 and 105. His blood pressure is good and his room air oxygen saturation is in the mid 90s. Intake and output show that yesterday he had 2000 in with 3500 out. His NG tube was listed as having 1200 mL out. He does report that he has been taking some sips of water. This morning he had only 400 recorded out in his NG tube. PHYSICAL EXAMINATION: The patient is sitting up on the edge of the bed with the nursing staff present caring for him. He was about to get up out of bed. He is alert and oriented. Examination shows that there is some air in his ostomy appliance though not a lot. His NG canister has a small amount of lightly bilious fluid. The abdomen is fairly soft. LABORATORY STUDIES: Laboratory studies today show a white count of 7, hemoglobin of 14, hematocrit 41 and platelet count of 183,000. Differential count shows 70% neutrophils, 14% lymphocytes and 11% monocytes. Chemistry profile shows sodium of 140, potassium 3.3, chloride 105, CO2 of 32, BUN of 18, creatinine 0.8 and a glucose of 142. Total protein is 5.8 with an albumin of 1.9. IMPRESSION: The patient appears to be making good progress. He has had some stool out of his bag over the last 2 days. When I saw him yesterday his abdomen was softer and we had talked about possibly clamping his NG tube. PLAN: We will clamp the patient's NG tube today. I advised him that if he develops nausea or vomiting or increasing abdominal pain he should let the nurses know and they can put his NG tube back to a intermittent suction. I will check back later in the day and if he is tolerating the tube clamped with increased output from his ostomy appliance then the NG can be removed. MARLA
[2019-04-21] MEDS ORDERED: FAT EMULSION IV 20% 500 ML IV SCH (18:00)
[2019-04-21] MEDS ORDERED: MULTIVITAMIN -ADULT INJECTION 10 ML, CR/CU/SE/MN/ZN INJ 1 ML in AMINO AC/ELECTROLYTE/DE... IV SCH (18:00)
[2019-04-22] VITALS: BP 132/82
[2019-04-22] MEDS: METOPROLOL 5 MG/5 ML VIAL IV SCH ×4 (01:29→23:22)
[2019-04-22 04:00] VITALS: BP 141/81
[2019-04-22] MEDS: HumaLOG INSULIN (NovoLOG) PER UNIT SC SCH ×4 (06:00→23:17)
[2019-04-22] MEDS: SODIUM CHLORIDE 0.9% INJ 10 ML SYR IV SCH ×2 (06:01→17:54)
[2019-04-22 06:18] LABS: BASO # 0.1 10^3/uL (0.0-0.2); BASO % 0.7 % (0.0-1.0); EOS # 0.3 10^3/uL (0.0-0.5); EOS % 4.1 % (0.0-3.0); HEMATOCRIT 42.4 % (42.0-52.0); HEMOGLOBIN 13.4 g/dl (13.5-17.5); LYMPH % 14.1 % (24.0-44.0); MEAN CORPUSCULAR HEMOGLOBIN 30.6 pg (27.0-33.0); MEAN CORPUSCULAR HGB CONC 31.6 g/dl (32.0-36.5); MEAN CORPUSCULAR VOLUME 96.8 fl (80.0-96.0); MONO # 0.7 10^3/uL (0.0-0.8); MONO % 10.8 % (0.0-5.0); NEUTROPHILS # 4.7 10^3/uL (1.5-8.5); NEUTROPHILS % 69.3 % (36.0-66.0); PLATELET COUNT, AUTOMATED 212 10^3/uL (150-450); RED BLOOD COUNT 4.38 10^6/uL (4.30-6.10); WHITE BLOOD COUNT 6.8 10^3/uL (4.0-10.0)
[2019-04-22 06:36] LABS: BLOOD UREA NITROGEN 17 MG/DL (7-18); CALCIUM LEVEL 8.3 MG/DL (8.8-10.2); CARBON DIOXIDE LEVEL 34 MEQ/L (21-32); CHLORIDE LEVEL 106 MEQ/L (98-107); CREATININE FOR GFR 0.89 MG/DL (0.70-1.30); GLOMERULAR FILTRATION RATE > 60.0 (>35); GLUCOSE, FASTING 142 MG/DL (70-100); MAGNESIUM LEVEL 1.8 MG/DL (1.8-2.4); POTASSIUM SERUM 3.5 MEQ/L (3.5-5.1); SODIUM LEVEL 143 MEQ/L (136-145)
[2019-04-22 07:35] VITALS: BP 127/87
[2019-04-22] MEDS: ALVIMOPAN 12 MG CAPSULE (ENTEREG) PO SCH (10:08)
[2019-04-22] MEDS: ENOXAPARIN 100MG/1ML SYRINGE (J1650) SC SCH ×2 (10:09→20:07)
[2019-04-22] MEDS: PANTOPRAZOLE 40MG INJ (PROTONIX) (C9113) IV SCH (10:09)
[2019-04-22] MEDS: NYSTATIN 100,000 UNITS/GM TOPICAL PWD 15 GM TOP SCH ×2 (10:09→20:06)
[2019-04-22] MEDS ORDERED: ACETAMINOPHEN 325 MG/10.15 ML UDC PO PRN (11:15)
[2019-04-22 11:27] VITALS: BP 127/74
[2019-04-22] MEDS ORDERED: LACTULOSE 20 GM/30 ML SYRUP UD PO ONE (12:00)
--- NOTE | 2019-04-22 12:29 | IPNPDOC ---
Subjective Date Seen The patient was seen on 04/22/19. Subjective Chief Complaint/HPI Patient is still nothing by mouth NG tube has been clamped. Still has a generalized abdominal pain General: Denies: ROS Unobtainable, Chills, Night Sweats, Fatigue, Malaise, Normal Appetite, Other Symptoms Constitutional: Denies: Chills, Fever, Malaise, Night Sweats, Weakness, Fatigue, Weight Loss, Lethargy, Other Pulmonary: Denies: Dyspnea, Cough, Pleuritic Chest Pain, Other Symptoms Cardiovascular: Denies: Chest Pain, Palpitations, Orthopnea, Paroxysmal Noc. Dyspnea, Edema, Lt Headedness, Other Symptoms Gastrointestinal: Reports: Abdominal Pain; Denies: Nausea, Vomiting, Diarrhea, Constipation, Melena, Hematochezia, Other Symptoms Musculoskeletal: Denies: Neck Pain, Back Pain, Shoulder Pain, Arm Pain, Hand Pain, Leg Pain, Foot Pain, Joint Pain, Muscle Pain, Spasms, Other Symptoms Neurological: Denies: Weakness, Numbness, Incoordination, Change in speech, Confusion, Seizures, Other Symptoms Objective Physical Examination Neck Exam: Positive: Supple Chest Exam: Positive: Clear to auscultation, Normal air movement Heart Exam: Positive: Tachycardic, Irregular Rhythm Telemetry: Positive: Atrial fibrillation Abdomen Exam: Positive: Tenderness (, tenderness present all over the abdomen on palpation) Extremity Exam: Positive: Normal pulses, Other (chronic discoloration of bilateral lower extremities) Skin Exam: Positive: Nl turgor and temperature Neuro Exam: Positive: Other (, mostly all extremities) Psych Exam: Positive: Mental status NL, Mood NL Assessment /Plan Problems (1) SBO (small bowel obstruction) Status: Acute Problem Text: PICC line was placed and yesterday and is started on TPN NG tube has been clamped since this morning TPN and progress Bowel sounds still not audible on auscultation Further, as per surgery's recommendations Continue TPN and IV hydration (2) New onset atrial fibrillation Status: Acute Problem Text: Anticoagulation with Lovenox 100 mg twice a day, Will decrease Lopressor to 2.5 mg IV every 6 hours secondary to frequent episodes of heart rate going under 40 Monitor patient's cardiac rhythm and adjust medication accordingly (3) Acute kidney injury superimposed on CKD Status: Acute Problem Text: SONA had resolved with IV hydration, worsened postop due to surgical stress & insensible losses, now back to baseline with IV fluids. (4) Diabetes mellitus Status: Chronic Problem Text: Patient on fingerstick blood sugar every 6 hours and coverage Plan/VTE VTE Prophylaxis Ordered?: Yes VS, I&O, 24H, Fishbone Vital Signs/I&O Vital Signs Date Time Temp Pulse Resp B/P (MAP) Pulse Ox O2 Delivery O2 Flow Rate FiO2 04/22/19 11:27 97.8 77 20 127/74 (91) 94 Room Air 04/20/19 12:00 I&O- Last 24 Hours up to 6 AM 04/22/19 06:00 Intake Total 1280 ml Output Total 1975 ml Balance -695 ml Laboratory Data 24H LABS Laboratory Tests 2 04/21/19 12:31: Bedside Glucose (Misc Panel) 146H 04/21/19 17:57: Bedside Glucose (Misc Panel) 120H 04/21/19 23:45: Bedside Glucose (Misc Panel) 116H 04/22/19 05:51: Bedside Glucose (Misc Panel) 146H 04/22/19 05:52: Immature Granulocyte % (Auto) 1.0, Neutrophils (%) (Auto) 69.3H, Lymphocytes (%) (Auto) 14.1L, Monocytes (%) (Auto) 10.8H, Eosinophils (%) (Auto) 4.1H, Basophils (%) (Auto) 0.7, Neutrophils # (Auto) 4.7, Lymphocytes # (Auto) 1.0L, Monocytes # (Auto) 0.7, Eosinophils # (Auto) 0.3, Basophils # (Auto) 0.1, Nucleated Red Blood Cells % (auto) 0.0, Anion Gap 3L, Glomerular Filtration Rate > 60.0, Calcium Level 8.3L, Magnesium Level 1.8 CBC/BMP Laboratory Tests 04/22/19 05:52 SEBAS CATES MD Apr 22, 2019 12:29
[2019-04-22 16:00] VITALS: BP 136/75
--- NOTE | 2019-04-22 16:02 | IPN ---
DATE: 04/22/2019 HISTORY: The patient is now postop day #7 from his extensive laparoscopic lysis of adhesions with repair of incarcerated ventral hernias with mesh. His nasogastric (NG) tube has been clamped since the morning of 04/21/2019. He has not noticed any increase in abdominal pain nor has he had any nausea or vomiting. He does report having had some intermittent flatus from his colostomy with a small amount of stool recorded this morning. Vital signs show that he has been afebrile. His pulse is generally in the 70's to 90's. His blood pressure is good. Intake and output show that yesterday he had 1800 in with 2350 recorded out. PHYSICAL EXAM: The patient is alert and jovial. He denies any significant discomfort. Heart exam shows an irregular rhythm. The lungs are clear. The abdomen remained somewhat distended. He has some mild tenderness across the mid abdomen to palpation. There is suggestion of some faint tympany to percussion also across the mid abdomen. His ostomy appears healthy and viable and there is a small amount of stool in the bag. Laboratory studies today show white count of 7, hemoglobin of 13, hematocrit of 42 and a platelet count of 212,000. Differential count shows 69% neutrophils, 14% lymphocytes and 11% monocytes. Chemistry shows a sodium of 143, potassium 3.5, chloride 106, CO2 of 34, BUN of 17, creatinine 0.9 and a glucose of 142. IMPRESSION: The patient has tolerated having his NG tube clamped for over 24 hours. He continues to have small amounts of stool and air from his ostomy. PLAN: I will remove his NG tube this morning. I will also have his Noel catheter removed. He will be started on some clear liquids with limited amounts at first. I will stop his Entereg as he is no longer taking any narcotics over the last day or two. We will see how he does with the clear liquids without the NG tube. Hopefully, he will start to show more evidence of ostomy output. MARLA
[2019-04-22] MEDS ORDERED: FAT EMULSION IV 20% 500 ML IV SCH (18:00)
[2019-04-22] MEDS ORDERED: AMINO AC/ELECTROLYTE/DEX/CALC 2,000 ML IV SCH (18:00)
[2019-04-22 20:00] VITALS: BP 128/62
[2019-04-23] VITALS: BP 124/83
[2019-04-23 04:00] VITALS: BP 142/87
[2019-04-23 05:13] LABS: BASO # 0.1 10^3/uL (0.0-0.2); BASO % 0.9 % (0.0-1.0); EOS # 0.3 10^3/uL (0.0-0.5); EOS % 3.9 % (0.0-3.0); HEMATOCRIT 41.1 % (42.0-52.0); HEMOGLOBIN 13.2 g/dl (13.5-17.5); LYMPH % 13.8 % (24.0-44.0); MEAN CORPUSCULAR HEMOGLOBIN 30.8 pg (27.0-33.0); MEAN CORPUSCULAR HGB CONC 32.1 g/dl (32.0-36.5); MONO # 0.7 10^3/uL (0.0-0.8); MONO % 10.2 % (0.0-5.0); NEUTROPHILS # 4.8 10^3/uL (1.5-8.5); NEUTROPHILS % 70.2 % (36.0-66.0); PLATELET COUNT, AUTOMATED 224 10^3/uL (150-450); RED BLOOD COUNT 4.28 10^6/uL (4.30-6.10); WHITE BLOOD COUNT 6.9 10^3/uL (4.0-10.0)
[2019-04-23 05:44] LABS: ALBUMIN 1.9 GM/DL (3.2-5.2); ALT/SGPT 42 U/L (12-78); BILIRUBIN,TOTAL 0.4 MG/DL (0.2-1.0); BLOOD UREA NITROGEN 17 MG/DL (7-18); CALCIUM LEVEL 8.2 MG/DL (8.8-10.2); CARBON DIOXIDE LEVEL 30 MEQ/L (21-32); CHLORIDE LEVEL 108 MEQ/L (98-107); CREATININE FOR GFR 0.85 MG/DL (0.70-1.30); GLOMERULAR FILTRATION RATE > 60.0 (>35); GLUCOSE, FASTING 148 MG/DL (70-100); MAGNESIUM LEVEL 1.8 MG/DL (1.8-2.4); POTASSIUM SERUM 3.5 MEQ/L (3.5-5.1); SODIUM LEVEL 143 MEQ/L (136-145); TOTAL PROTEIN 5.8 GM/DL (6.4-8.2)
[2019-04-23] MEDS: HumaLOG INSULIN (NovoLOG) PER UNIT SC SCH ×4 (05:58→23:40)
[2019-04-23] MEDS: SODIUM CHLORIDE 0.9% INJ 10 ML SYR IV SCH ×2 (06:03→18:12)
[2019-04-23] MEDS: METOPROLOL 5 MG/5 ML VIAL IV SCH ×4 (06:06→23:39)
[2019-04-23 08:00] VITALS: BP 140/85
[2019-04-23] MEDS: ENOXAPARIN 100MG/1ML SYRINGE (J1650) SC SCH ×2 (09:27→21:05)
[2019-04-23] MEDS: NYSTATIN 100,000 UNITS/GM TOPICAL PWD 15 GM TOP SCH ×2 (09:27→21:05)
[2019-04-23] MEDS: PANTOPRAZOLE 40MG TAB (PROTONIX) PO SCH (09:27)
[2019-04-23] MEDS ORDERED: NORCO, ANEXSIA 5/325MG TABLET (HYDROcodone/ACETAMINOPHEN) PO PRN (10:45)
[2019-04-23] MEDS ORDERED: ACETAMINOPHEN TAB 650MG DOSE (2X325MG) PO PRN (10:45)
[2019-04-23] MEDS ORDERED: ONDANSETRON 4 MG ORAL DISINTEGRATING TAB (Q0162 PER 1MG) SL PRN (10:45)
--- NOTE | 2019-04-23 11:35 | IPN ---
DATE: 04/23/2019 HISTORY: The patient is now postop day 8 from laparoscopy with lysis of adhesions, reduction and repair of an incarcerated parastomal hernia with bowel obstruction and placement of mesh for repair of his hernias. He has done well from his surgery with kind of a slow return of bowel function. His NG tube was removed yesterday after being clamped for greater than 24 hours. He has been passing gas and some loose stool from his stoma since. He reports no increase in pain and has had no nausea or vomiting. Vital signs show that he has been afebrile with a pulse ranging from about 81-113. His blood pressure is good in the 120s to 140s systolic and his room air oxygen saturations are normal. Intake and output shows that yesterday he had 1580 recorded in although at his current TPN rate the amount should be much higher than that. His output showed 825 mL of urine output and 375 mL of stool. PHYSICAL EXAMINATION: The patient is sitting up in a recliner at the bedside. He looks alert and comfortable. He is cheerful and interactive. He denies any pain. Heart exam shows an irregular rhythm. Lungs are clear. The abdomen is obese but soft with bowel sounds present. There is air and a small amount of stool in his bag and all of his surgical incisions are clean and healing well with no sign of infection. Laboratory studies today show a white count of 7, similar to the last 4 days. His hemoglobin is 13 and his hematocrit is 41. Platelet count is 224,000 with differential showing 70% neutrophils, lymphocytes of 14%, monocytes of 10% and all of these blood parameters are really without significant tire changer aircraft the last 5 days. His chemistry profile shows sodium of 143, potassium 3.5, chloride 108, CO2 of 30, BUN of 17, creatinine 0.85 and a glucose of 148. His liver function tests are normal. Total protein is 5.8 with an albumin of 1.9. IMPRESSION: The patient is doing very well with no problems after resuming some clear liquids yesterday. His ostomy is functioning and he is passing gas. PLAN: The patient will be advanced to a regular diet today. I will put him on some Colace. His morphine will be stopped as he is not using it. I will offer him some regular Tylenol or Cypress as needed for pain, though he has not taken any pain medicine for several days. I will also change his Zofran to sublingual from IV. I would anticipate that his TPN could be stopped very soon. I will authorize him to take a shower as there is no reason his wounds could not be wet at this time. MARLA
--- NOTE | 2019-04-23 11:53 | IPN ---
DATE: 04/19/2019 HISTORY: The patient is postoperative day #4 from laparoscopic lysis of adhesions with repair of incarcerated hernias including a parastomal hernia with bowel obstruction and placement of mesh. He has generally done well, but has not yet had a return of significant bowel function. He was started on some peripheral total parenteral nutrition (TPN) yesterday and is awaiting placement of a peripherally inserted central catheter (PICC) line today to start full strength central TPN. He reports that he has been feeling weak, but has been out of bed slightly more. Vital signs show that he has been afebrile. His pulse has been variable between the 60s and low 100s. His blood pressure is good. Intake and output show that yesterday he had 2160 in with 1950 out. Much of that was from his nasogastric (NG) tube. He does report he has had some air out in his ostomy appliance, but not a significant amount of stool yet. 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 Heart exam shows an irregular rhythm. The lungs are clear. The abdomen is still somewhat obese, but I think softer. There is a little tenderness still across the mid abdomen above the level of his ostomy. LABORATORY STUDIES: Show a white count of 7, hemoglobin 13, hematocrit 42 and a platelet count of 131,000. His differential count is not strikingly abnormal. His chemistry profile shows normal electrolytes with BUN of 18, creatinine 0.8 and a glucose of 114. IMPRESSION: The patient appears to be doing well and is having some gas from his stoma. His wounds appear to be healing well. He is somewhat weak and has only started some peripheral TPN so far. PLAN: At this point, I think starting him on a full strength TPN with a PICC line is certainly appropriate. His ostomy is putting out some air, but not any significant stool yet, so I think continuing his NG tube is appropriate at this time. Hopefully, we will start to see more improvement in his ostomy output soon. He should certainly continue with physical therapy to continue to try and keep up his strength. [id number]
[2019-04-23 12:00] VITALS: BP 146/74
--- NOTE | 2019-04-23 12:04 | IPNPDOC ---
Subjective Date Seen The patient was seen on 04/23/19. Subjective Chief Complaint/HPI Patient is comfortable, tolerating clear liquids. No abdominal pain, had some gas via stoma NG tube has been taken out General: Denies: ROS Unobtainable, Chills, Night Sweats, Fatigue, Malaise, Normal Appetite, Other Symptoms Constitutional: Denies: Chills, Fever, Malaise, Night Sweats, Weakness, Fat igue, Weight Loss, Lethargy, Other Skin: Denies: Rash, Lesions, Jaundice, Bruising, Itching, Dry, Breakdown, Nail Changes, Other Pulmonary: Denies: Dyspnea, Cough, Pleuritic Chest Pain, Other Symptoms Cardiovascular: Denies: Chest Pain, Palpitations, Orthopnea, Paroxysmal Noc. Dyspnea, Edema, Lt Headedness, Other Symptoms Gastrointestinal: Reports: Abdominal Pain Genitourinary: Denies: Dysuria, Frequency, Incontinence, Hematuria, Retention, Other Symptoms Musculoskeletal: Denies: Neck Pain, Back Pain, Shoulder Pain, Arm Pain, Hand Pain, Leg Pain, Foot Pain, Joint Pain, Muscle Pain, Spasms, Other Symptoms Neurological: Denies: Weakness, Numbness, Incoordination, Change in speech, Confusion, Seizures, Other Symptoms Objective Physical Examination Neck Exam: Positive: Supple Chest Exam: Positive: Clear to auscultation, Normal air movement Heart Exam: Positive: Tachycardic, Irregular Rhythm Telemetry: Positive: Atrial fibrillation Abdomen Exam: Positive: Tenderness (, tenderness present all over the abdomen on palpation) Extremity Exam: Positive: Normal pulses, Other (chronic discoloration of bilateral lower extremities) Skin Exam: Positive: Nl turgor and temperature Neuro Exam: Positive: Other (, mostly all extremities) Psych Exam: Positive: Mental status NL, Mood NL Assessment /Plan Problems (1) SBO (small bowel obstruction) Status: Acute Problem Text: PICC line is present. Patient is continuing to get his TPN NG tube has been discontinued Started on clear liquid diets which is tolerating Audible bowel sounds. Also had gastritis via stoma Surgical follow-up appreciated Will progress diet as he continues to tolerate feeding then switch all his meds to by mouth Continue TPN and IV hydration (2) New onset atrial fibrillation Status: Acute Problem Text: Anticoagulation with Lovenox 100 mg twice a day, Will decrease Lopressor to 2.5 mg IV every 6 hours secondary to frequent episodes of heart rate going under 40 Monitor patient's cardiac rhythm and adjust medication accordingly (3) Acute kidney injury superimposed on CKD Status: Acute Problem Text: SONA had resolved with IV hydration, worsened postop due to surgical stress & insensible losses, now back to baseline with IV fluids. (4) Diabetes mellitus Status: Chronic Problem Text: Patient on fingerstick blood sugar every 6 hours and coverage Plan/VTE VTE Prophylaxis Ordered?: Yes VS, I&O, 24H, Fishbone Vital Signs/I&O Vital Signs Date Time Temp Pulse Resp B/P (MAP) Pulse Ox O2 Delivery O2 Flow Rate FiO2 04/23/19 08:00 97.8 84 19 140/85 (103) 96 Room Air 04/20/19 12:00 I&O- Last 24 Hours up to 6 AM 04/23/19 05:59 Intake Total 1580 ml Output Total 975 ml Balance 605 ml Laboratory Data 24H LABS Laboratory Tests 2 04/22/19 12:59: Bedside Glucose (Misc Panel) 133H 04/22/19 17:36: Bedside Glucose (Misc Panel) 138H 04/22/19 23:15: Bedside Glucose (Misc Panel) 119H 04/23/19 05:00: Immature Granulocyte % (Auto) 1.0, Neutrophils (%) (Auto) 70.2H, Lymphocytes (%) (Auto) 13.8L, Monocytes (%) (Auto) 10.2H, Eosinophils (%) (Auto) 3.9H, Basophils (%) (Auto) 0.9, Neutrophils # (Auto) 4.8, Lymphocytes # (Auto) 1.0L, Monocytes # (Auto) 0.7, Eosinophils # (Auto) 0.3, Basophils # (Auto) 0.1, Nucleated Red Blood Cells % (auto) 0.0, Anion Gap 5L, Glomerular Filtration Rate > 60.0, Calcium Level 8.2L, Magnesium Level 1.8, Total Bilirubin 0.4, Aspartate Amino Transf (AST/SGOT) 32, Alanine Aminotransferase (ALT/SGPT) 42, Alkaline Phosphatase 42L, Total Protein 5.8L, Albumin 1.9L, Albumin/Globulin Ratio 0.49L 04/23/19 05:57: Bedside Glucose (Misc Panel) 131H 04/23/19 11:16: Bedside Glucose (Misc Panel) 150H CBC/BMP Laboratory Tests 04/23/19 05:00 SEBAS CATES MD Apr 23, 2019 12:03
--- NOTE | 2019-04-23 12:04 | IPN ---
DATE: 04/20/2019 HISTORY: The patient is now postop day #5 from his laparoscopic repair of incarcerated hernias with release of a small bowel obstruction. He reports that he has had some stool, a small amount, and some gas through his ostomy. He has some soreness across his mid abdomen with palpation but no significant pain and he is taking no pain medications. Vital signs: Show that he has been afebrile over the past 24 hours. His pulse has varied mostly between the 60s and 80s. His blood pressure is good. Intake and output show that yesterday he had 1650 in with 2200 out. There was 800 recorded from his NG tube. He does report that he has been taking a few little sips of water and a few swabs. It is impossible to quantitate how much fluid he may have taken in. PHYSICAL EXAMINATION: The patient remains quite jovial for the most part. He denies any pain. Physical exam shows that the abdomen is still somewhat obese but he has bowel sounds present. There is some faint tympany to percussion in the mid upper abdomen in the area where he is tender but his incisions all appear to be healing well. The ostomy is pink and viable. Laboratory studies today show white count of 7 which is unchanged from yesterday and the CBC overall is unchanged from yesterday. His chemistry panel shows normal electrolytes with a BUN of 18, creatinine 0.8 and a glucose of 158. IMPRESSION: The patient is comfortable and his NG output seems to have diminished somewhat. He is passing a small amount of stool and air from his stoma. He is taking some water by mouth and so it is hard to be certain of his true NG output. PLAN: I discussed with him the possibility of clamping his NG tube and we will plan to do this in the morning. At that point we can monitor him during the course of the day. He will remain on his total parenteral nutrition (TPN). I encouraged him to be up out of bed with physical therapy. MARLA
[2019-04-23] MEDS: DOCUSATE SODIUM 100 MG CAP PO SCH ×2 (12:11→21:04)
[2019-04-23 16:00] VITALS: BP_SYST 148; BP_SYST 48; BP_DIAS 82
[2019-04-23] MEDS ORDERED: HumaLOG INSULIN (NovoLOG) PER UNIT SC SCH (18:00)
[2019-04-23] MEDS ORDERED: FAT EMULSION IV 20% 500 ML IV SCH (18:00)
[2019-04-23] MEDS ORDERED: MULTIVITAMIN -ADULT INJECTION 10 ML, CR/CU/SE/MN/ZN INJ 1 ML in AMINO AC/ELECTROLYTE/DE... IV SCH (18:00)
[2019-04-23 20:00] VITALS: BP 149/76
[2019-04-24] VITALS: BP 136/80
[2019-04-24 04:00] VITALS: BP 137/86
[2019-04-24] MEDS: SODIUM CHLORIDE 0.9% INJ 10 ML SYR IV SCH ×2 (05:55→16:57)
[2019-04-24] MEDS: METOPROLOL 5 MG/5 ML VIAL IV SCH (05:57)
[2019-04-24 05:58] LABS: HEMOGLOBIN 12.5 g/dl (13.5-17.5); MEAN CORPUSCULAR HGB CONC 32.1 g/dl (32.0-36.5); MEAN CORPUSCULAR VOLUME 96.8 fl (80.0-96.0); PLATELET COUNT, AUTOMATED 232 10^3/uL (150-450); RED BLOOD COUNT 4.03 10^6/uL (4.30-6.10); WHITE BLOOD COUNT 6.6 10^3/uL (4.0-10.0)
[2019-04-24 06:15] LABS: BLOOD UREA NITROGEN 19 MG/DL (7-18); CALCIUM LEVEL 8.4 MG/DL (8.8-10.2); CARBON DIOXIDE LEVEL 31 MEQ/L (21-32); CHLORIDE LEVEL 107 MEQ/L (98-107); CREATININE FOR GFR 0.84 MG/DL (0.70-1.30); GLOMERULAR FILTRATION RATE > 60.0 (>35); GLUCOSE, FASTING 157 MG/DL (70-100); MAGNESIUM LEVEL 1.9 MG/DL (1.8-2.4); POTASSIUM SERUM 3.6 MEQ/L (3.5-5.1); SODIUM LEVEL 143 MEQ/L (136-145)
[2019-04-24] MEDS: HumaLOG INSULIN (NovoLOG) PER UNIT SC SCH ×4 (06:55→20:11)
[2019-04-24 07:54] VITALS: BP 126/66
[2019-04-24] MEDS ORDERED: PILL CUTTER 1 EACH XX PRN (08:15)
[2019-04-24] MEDS: NYSTATIN 100,000 UNITS/GM TOPICAL PWD 15 GM TOP SCH ×2 (08:39→21:09)
[2019-04-24] MEDS: PANTOPRAZOLE 40MG TAB (PROTONIX) PO SCH (08:39)
[2019-04-24] MEDS: DOCUSATE SODIUM 100 MG CAP PO SCH ×2 (08:40→21:08)
[2019-04-24] MEDS: SIMETHICONE 80 MG CHEW TAB PO SCH ×4 (08:40→21:08)
[2019-04-24] MEDS: ENOXAPARIN 100MG/1ML SYRINGE (J1650) SC SCH ×2 (08:40→21:08)
--- NOTE | 2019-04-24 09:04 | IPN ---
DATE: 04/24/2019 Subjectively, the patient has no complaints at this time. Although, he still is not moving around very well. States his knees are still very weak and he had some soreness when he attempted to get out of bed yesterday. He has been afebrile overnight and no complaints of nausea. Has tolerated his breakfast this morning but only has had minimal ostomy output yesterday. Does have a great deal of air coming out the ostomy itself. His white count is still normal. His hematocrit is stable, slightly decreased from yesterday, but otherwise not significantly diminished. He has no active bleeding from his gastrointestinal (GI) tract. His abdomen is tympanitic, distended with a great deal of air out his ostomy. The ostomy is pink and clean. IMPRESSION/PLAN: The patient has a lot of gastric distension/abdominal distension secondary to air, at this point it may be from aerophagia, but at this point we will see if we cannot get him to increase his activity. Will add some simethicone to his orders and add some additional stool softeners for him. Otherwise, no other surgical changes at this time.
[2019-04-24] MEDS: METOPROLOL SUCC *XL* 25MG TAB (TopROL *XL*) PO SCH ×2 (09:51→21:09)
--- NOTE | 2019-04-24 10:32 | IPNPDOC ---
Subjective Date Seen The patient was seen on 04/24/19. Subjective Chief Complaint/HPI Patient is tolerating a regular diet but has a lot of gas through the colostomy bag started on simethicone by surgery General: Denies: ROS Unobtainable, Chills, Night Sweats, Fatigue, Malaise, Normal Appetite, Other Symptoms Constitutional: Denies: Chills, Fever, Malaise, Night Sweats, Weakness, Fati prudence, Weight Loss, Lethargy, Other Pulmonary: Denies: Dyspnea, Cough, Pleuritic Chest Pain, Other Symptoms Cardiovascular: Denies: Chest Pain, Palpitations, Orthopnea, Paroxysmal Noc. Dyspnea, Edema, Lt Headedness, Other Symptoms Gastrointestinal: Reports: Other Symptoms (abdominal distention) Endocrine: Denies: Polydipsia, Polyphagia, Polyuria, Heat Intolerance, Cold Intolerance, Other Endocrine Sx Musculoskeletal: Denies: Neck Pain, Back Pain, Shoulder Pain, Arm Pain, Hand Pain, Leg Pain, Foot Pain, Joint Pain, Muscle Pain, Spasms, Other Symptoms Neurological: Denies: Weakness, Numbness, Incoordination, Change in speech, Confusion, Seizures, Other Symptoms Objective Physical Examination Neck Exam: Positive: Supple Chest Exam: Positive: Clear to auscultation, Normal air movement Heart Exam: Positive: Tachycardic, Irregular Rhythm Telemetry: Positive: Atrial fibrillation Abdomen Exam: Positive: Other (, abdominal distention with a mild generalized tenderness) Extremity Exam: Positive: Normal pulses, Other (chronic discoloration of bilateral lower extremities) Skin Exam: Positive: Nl turgor and temperature Neuro Exam: Positive: Other (, mostly all extremities) Assessment /Plan Problems (1) SBO (small bowel obstruction) Status: Acute Problem Text: Will DC TPN as patient is eating regular diet NG tube was discontinued 2 days ago Patient has good bowel sounds. At this point Abdominal is distended with a lot of gas through colostomy most likely aerophagia Patient was started on simethicone Surgical follow-up appreciated Continue present meds Out of bed as tolerated (2) New onset atrial fibrillation Status: Acute Problem Text: Anticoagulation with Lovenox 100 mg twice a day, will change it to by mouth liquids. Once he is surgically cleared Change Lopressor to metoprolol tartrate 25 mg by mouth twice a day Monitor patient's cardiac rhythm and adjust medication accordingly (3) Acute kidney injury superimposed on CKD Status: Acute Problem Text: Resolved with IV hydration Patient's BUN/creatinine is at baseline (4) Diabetes mellitus Status: Chronic Problem Text: Patient on fingerstick blood sugar every before meals and at bedtime with coverage Plan/VTE VTE Prophylaxis Ordered?: Yes VS, I&O, 24H, Fishbone Vital Signs/I&O Vital Signs Date Time Temp Pulse Resp B/P (MAP) Pulse Ox O2 Delivery O2 Flow Rate FiO2 04/24/19 09:51 82 126/66 04/24/19 07:54 97.7 22 96 Room Air 04/20/19 12:00 I&O- Last 24 Hours up to 6 AM 04/24/19 05:59 Intake Total 2130 ml Output Total 1275 ml Balance 855 ml Laboratory Data 24H LABS Laboratory Tests 2 04/23/19 11:16: Bedside Glucose (Misc Panel) 150H 04/23/19 17:18: Bedside Glucose (Misc Panel) 160H 04/23/19 23:28: Bedside Glucose (Misc Panel) 142H 04/24/19 05:40: Nucleated Red Blood Cells % (auto) 0.0, Anion Gap 5L, Glomerular Filtration Rate > 60.0, Calcium Level 8.4L, Magnesium Level 1.9 CBC/BMP Laboratory Tests 04/24/19 05:40 SEBAS CATSE MD Apr 24, 2019 10:31
[2019-04-24 12:00] VITALS: BP 130/86
[2019-04-24 16:09] VITALS: BP 133/70
[2019-04-24 20:00] VITALS: BP 150/80
[2019-04-25] VITALS: BP 129/86
[2019-04-25 04:00] VITALS: BP 124/79
[2019-04-25 05:25] LABS: BASO # 0.1 10^3/uL (0.0-0.2); BASO % 1.2 % (0.0-1.0); EOS # 0.3 10^3/uL (0.0-0.5); EOS % 4.1 % (0.0-3.0); HEMATOCRIT 41.2 % (42.0-52.0); HEMOGLOBIN 12.9 g/dl (13.5-17.5); LYMPH # 1.3 10^3/uL (1.5-5.0); LYMPH % 19.4 % (24.0-44.0); MEAN CORPUSCULAR HEMOGLOBIN 30.4 pg (27.0-33.0); MEAN CORPUSCULAR HGB CONC 31.3 g/dl (32.0-36.5); MEAN CORPUSCULAR VOLUME 97.2 fl (80.0-96.0); MONO # 0.7 10^3/uL (0.0-0.8); MONO % 11.1 % (0.0-5.0); NEUTROPHILS # 4.1 10^3/uL (1.5-8.5); PLATELET COUNT, AUTOMATED 246 10^3/uL (150-450); RED BLOOD COUNT 4.24 10^6/uL (4.30-6.10); WHITE BLOOD COUNT 6.6 10^3/uL (4.0-10.0)
[2019-04-25 05:53] LABS: ALBUMIN 2.2 GM/DL (3.2-5.2); ALT/SGPT 29 U/L (12-78); BILIRUBIN,TOTAL 0.4 MG/DL (0.2-1.0); BLOOD UREA NITROGEN 24 MG/DL (7-18); CALCIUM LEVEL 8.3 MG/DL (8.8-10.2); CARBON DIOXIDE LEVEL 30 MEQ/L (21-32); CHLORIDE LEVEL 107 MEQ/L (98-107); CREATININE FOR GFR 1.01 MG/DL (0.70-1.30); GLOMERULAR FILTRATION RATE > 60.0 (>35); GLUCOSE, FASTING 103 MG/DL (70-100); MAGNESIUM LEVEL 1.8 MG/DL (1.8-2.4); POTASSIUM SERUM 4.2 MEQ/L (3.5-5.1); SODIUM LEVEL 142 MEQ/L (136-145); TOTAL PROTEIN 5.6 GM/DL (6.4-8.2)
[2019-04-25] MEDS: SODIUM CHLORIDE 0.9% INJ 10 ML SYR IV SCH ×2 (06:52→17:07)
[2019-04-25 07:03] VITALS: BP 127/93
[2019-04-25] MEDS: HumaLOG INSULIN (NovoLOG) PER UNIT SC SCH ×4 (07:22→20:17)
[2019-04-25] MEDS: NYSTATIN 100,000 UNITS/GM TOPICAL PWD 15 GM TOP SCH ×2 (08:16→20:22)
[2019-04-25] MEDS: SIMETHICONE 80 MG CHEW TAB PO SCH ×4 (08:17→20:22)
[2019-04-25] MEDS: ENOXAPARIN 100MG/1ML SYRINGE (J1650) SC SCH (08:17)
[2019-04-25] MEDS: DOCUSATE SODIUM 100 MG CAP PO SCH ×2 (08:17→20:22)
[2019-04-25] MEDS: PANTOPRAZOLE 40MG TAB (PROTONIX) PO SCH (08:17)
[2019-04-25] MEDS: METOPROLOL SUCC *XL* 25MG TAB (TopROL *XL*) PO SCH (08:53)
--- NOTE | 2019-04-25 10:25 | IPNPDOC ---
Subjective Date Seen The patient was seen on 04/25/19. Subjective Chief Complaint/HPI Patient is comfortable, tolerating his oral feeding very well, in no distress. Patient was found to have a multiple 3 second pauses followed by the longest pause of 10 seconds on telemetry monitoring without any symptoms General: Denies: ROS Unobtainable, Chills, Night Sweats, Fatigue, Malaise, Normal Appetite, Other Symptoms Constitutional: Denies: Chills, Fever, Malaise, Night Sweats, Weakness, F atigue, Weight Loss, Lethargy, Other Pulmonary: Denies: Dyspnea, Cough, Pleuritic Chest Pain, Other Symptoms Cardiovascular: Denies: Chest Pain, Palpitations, Orthopnea, Paroxysmal Noc. Dyspnea, Edema, Lt Headedness, Other Symptoms Gastrointestinal: Denies: Nausea, Vomiting, Abdominal Pain, Diarrhea, Constipation, Melena, Hematochezia, Other Symptoms Genitourinary: Denies: Dysuria, Frequency, Incontinence, Hematuria, Retention, Other Symptoms Musculoskeletal: Denies: Neck Pain, Back Pain, Shoulder Pain, Arm Pain, Hand Pain, Leg Pain, Foot Pain, Joint Pain, Muscle Pain, Spasms, Other Symptoms Neurological: Denies: Weakness, Numbness, Incoordination, Change in speech, Confusion, Seizures, Other Symptoms Objective Physical Examination Neck Exam: Positive: Supple Chest Exam: Positive: Clear to auscultation, Normal air movement Heart Exam: Positive: Tachycardic, Irregular Rhythm Telemetry: Positive: Atrial fibrillation Abdomen Exam: Positive: Normal bowel sounds, Other (. No more tenderness on examination) Extremity Exam: Positive: Normal pulses, Other (chronic discoloration of bilateral lower extremities) Skin Exam: Positive: Nl turgor and temperature Neuro Exam: Positive: Other (, mostly all extremities) Assessment /Plan Problems (1) SBO (small bowel obstruction) Status: Acute Problem Text: intra parental nutrition has was DC'd Tolerating oral feeding very well Abdominal is benign. No more tenderness. Bowel sounds present Continue simethicone as per surgery Discharge to rehabilitation facility once bed available (2) New onset atrial fibrillation Status: Acute Problem Text: We will stop Lovenox and is started on Eliquis L [facility] of Discussed with Dr. Causey regarding frequent pauses on youth nutritional monitor in he recommended to DC metoprolol and also patient's cardiac rhythm on the monitor If the ventricular rate becomes very high. Again, then he might need a different oral medication to control the ventricular rate Monitor on youth nutritional monitor without any beta blockers (3) Acute kidney injury superimposed on CKD Status: Acute Problem Text: Resolved with IV hydration Patient's BUN/creatinine is at baseline (4) Diabetes mellitus Status: Chronic Problem Text: Patient on fingerstick blood sugar every before meals and at b edtime with coverage Plan/VTE VTE Prophylaxis Ordered?: Yes VS, I&O, 24H, Fishbone Vital Signs/I&O Vital Signs Date Time Temp Pulse Resp B/P (MAP) Pulse Ox O2 Delivery O2 Flow Rate FiO2 04/25/19 08:53 89 122/93 04/25/19 07:03 97.8 20 96 Room Air 04/20/19 12:00 I&O- Last 24 Hours up to 6 AM 04/25/19 06:00 Intake Total 1860 ml Output Total 1213 ml Balance 647 ml Laboratory Data 24H LABS Laboratory Tests 2 04/24/19 11:16: Bedside Glucose (Misc Panel) 175H 04/24/19 16:30: Bedside Glucose (Misc Panel) 152H 04/24/19 19:59: Bedside Glucose (Misc Panel) 154H 04/25/19 05:12: Immature Granulocyte % (Auto) 1.2, Neutrophils (%) (Auto) 63.0, Lymphocytes (%) (Auto) 19.4L, Monocytes (%) (Auto) 11.1H, Eosinophils (%) (Auto) 4.1H, Basophils (%) (Auto) 1.2H, Neutrophils # (Auto) 4.1, Lymphocytes # (Auto) 1.3L, Monocytes # (Auto) 0.7, Eosinophils # (Auto) 0.3, Basophils # (Auto) 0.1, Nucleated Red Blood Cells % (auto) 0.0, Anion Gap 5L, Glomerular Filtration Rate > 60.0, Calcium Level 8.3L, Magnesium Level 1.8, Total Bilirubin 0.4, Aspartate Amino Transf (AST/SGOT) 14, Alanine Aminotransferase (ALT/SGPT) 29, Alkaline P hosphatase 58, Total Protein 5.6L, Albumin 2.2L, Albumin/Globulin Ratio 0.65L CBC/BMP Laboratory Tests 04/25/19 05:12 SEBAS CATES MD Apr 25, 2019 10:25
[2019-04-25 12:00] VITALS: BP 131/68
[2019-04-25 16:00] VITALS: BP 128/77
--- NOTE | 2019-04-25 16:11 | IPN ---
DATE: 04/25/2019 Patient overall is feeling better today. He has been tolerating a regular diet and he still has some significant distension. He had some cardiac issues overnight and still has some pauses et cetera, and is being evaluated/treated by the hospitalist concerning this issue. From a surgical standpoint, he has been afebrile. He still had a great deal of gas out of his bag. He has had good urine output, but he has only had some minimal liquid stool out. On his physical exam, he has still a distended abdomen, which is tympanitic in the upper abdomen, but his ostomy actually is putting out some soft stool at this point, which was not there yesterday, and a great deal of air in the back. IMPRESSION AND PLAN: Patient has a very slow but progressive resolution of his current symptoms. I do feel that it is reasonable to continue on his current treatment for now. I anticipate at some point he will have a significant stool output or, if he had some persistence of his ileus/partial obstructive-looking presentation, performing a digital exam of the ostomy may be our next step to just rule out any edema at the closure site/mild narrowing. Otherwise, it seems we are making some slow but progressive improvement and letting him continue on this course is the most likely reasonable next step for him and allowing the medicine experts to take care of his cardiac, et cetera, issues.
[2019-04-25 20:00] VITALS: BP 141/82
[2019-04-25] MEDS ORDERED: APIXABAN 5 MG TAB (ELIQUIS) PO SCH (21:00)
[2019-04-26] VITALS (8 sets, daily range): BP systolic 118–133; BP diastolic 68–92
[2019-04-26] MEDS: SODIUM CHLORIDE 0.9% INJ 10 ML SYR IV SCH ×2 (05:02→18:57)
[2019-04-26 05:18] LABS: BASO # 0.1 10^3/uL (0.0-0.2); BASO % 1.1 % (0.0-1.0); EOS # 0.2 10^3/uL (0.0-0.5); EOS % 3.7 % (0.0-3.0); HEMATOCRIT 39.4 % (42.0-52.0); HEMOGLOBIN 12.4 g/dl (13.5-17.5); LYMPH # 1.3 10^3/uL (1.5-5.0); LYMPH % 21.1 % (24.0-44.0); MEAN CORPUSCULAR HEMOGLOBIN 30.7 pg (27.0-33.0); MEAN CORPUSCULAR HGB CONC 31.5 g/dl (32.0-36.5); MEAN CORPUSCULAR VOLUME 97.5 fl (80.0-96.0); MONO # 0.6 10^3/uL (0.0-0.8); MONO % 10.2 % (0.0-5.0); NEUTROPHILS % 62.9 % (36.0-66.0); PLATELET COUNT, AUTOMATED 243 10^3/uL (150-450); RED BLOOD COUNT 4.04 10^6/uL (4.30-6.10); WHITE BLOOD COUNT 6.3 10^3/uL (4.0-10.0)
[2019-04-26 06:03] LABS: ALBUMIN 2.2 GM/DL (3.2-5.2); ALT/SGPT 26 U/L (12-78); BILIRUBIN,TOTAL 0.4 MG/DL (0.2-1.0); BLOOD UREA NITROGEN 25 MG/DL (7-18); CALCIUM LEVEL 8.1 MG/DL (8.8-10.2); CARBON DIOXIDE LEVEL 32 MEQ/L (21-32); CHLORIDE LEVEL 108 MEQ/L (98-107); CREATININE FOR GFR 0.99 MG/DL (0.70-1.30); GLOMERULAR FILTRATION RATE > 60.0 (>35); GLUCOSE, FASTING 102 MG/DL (70-100); MAGNESIUM LEVEL 1.7 MG/DL (1.8-2.4); POTASSIUM SERUM 4.2 MEQ/L (3.5-5.1); SODIUM LEVEL 144 MEQ/L (136-145); TOTAL PROTEIN 5.5 GM/DL (6.4-8.2)
[2019-04-26] MEDS ORDERED: MAG SULF 1GM/100ML (MAG RUN) 1 GM in IV 1 EA IV ONE (06:15)
[2019-04-26] MEDS: HumaLOG INSULIN (NovoLOG) PER UNIT SC SCH ×4 (07:30→21:00)
--- NOTE | 2019-04-26 08:32 | IPN ---
DATE: 04/26/2019 I signed off Mr. Gore's case a week ago. This morning when reviewing telemetry tracings, I noted that he has had numerous pauses during the night as well as during the day. Last night, he had a 10-second pause at around 3:00 a.m., but this morning he had pauses exceeding 3 seconds when he was awake and sitting by the bedside. He denies any chest pain. He denies any palpitations. He never felt near syncopal. His beta blockers were discontinued yesterday. This morning, he tells me he is feeling well. He has been eating and actually when I entered the room he was finishing his breakfast. He did not have any specific complaints, but was afraid that there is something wrong with his heart because he was told so by the nursing staff. Vital Signs: Blood pressure 126/78. Heart rate fluctuates from 60s to 130s. He is afebrile. Saturation is 92% on room air. His weight is 106 kg. He is alert, oriented and appropriate. Jugular venous pulse (JVP) is not high. Lungs are clear. Heart exam reveals irregular rhythm, currently about 100 beats per minute. Abdomen is soft. His colostomy bag is containing stool. He has very prominent stasis dermatitis. LABORATORIES: Basic metabolic panel is normal. CBC reveals a hemoglobin of 12.4, hematocrit 39 and platelet count 243,000. ASSESSMENT/PLAN: Mr. Gore is an 83-year-old man who has no prior history of coronary artery disease or congestive heart failure who presented with small bowel obstruction and atrial fibrillation. Initially he was quite tachycardiac and was treated with IV metoprolol and digoxin because we did not have an option of oral intake. Then, the digoxin was discontinued and he was kept only on IV and later by mouth metoprolol. He has had slowly more and more evidence for sick sinus syndrome and with a pause exceeding 10 seconds last night and over 3 seconds when being already awake and sitting by the bed side, I believe there is clear-cut indication for pacemaker placement. Unfortunately, he got a first dose of Eliquis last night and I discontinued the medication. I will keep him nothing by mouth (n.p.o.). He will tentatively have a pacemaker placed this afternoon. I talked to the patient about the rationale and he is totally in agreement with proceeding.
[2019-04-26] MEDS: MAGNESIUM OXIDE 400 MG TAB (MAG-OX) PO SCH ×2 (09:01→21:00)
[2019-04-26] MEDS: PANTOPRAZOLE 40MG TAB (PROTONIX) PO SCH (09:01)
[2019-04-26] MEDS: DOCUSATE SODIUM 100 MG CAP PO SCH ×2 (09:01→21:00)
[2019-04-26] MEDS: SIMETHICONE 80 MG CHEW TAB PO SCH ×4 (09:02→21:00)
--- NOTE | 2019-04-26 10:09 | IPNPDOC ---
Subjective Date Seen The patient was seen on 04/26/19. Subjective Chief Complaint/HPI Patient tolerated oral feeding very well, scheduled for permanent pacemaker placement secondary to sick sinus syndrome General: Denies: ROS Unobtainable, Chills, Night Sweats, Fatigue, Malaise, Normal Appetite, Other Symptoms Pulmonary: Denies: Dyspnea, Cough, Pleuritic Chest Pain, Other Symptoms Cardiovascular: Denies: Chest Pain, Palpitations, Orthopnea, Paroxysmal Noc. Dyspnea, Edema, Lt Headedness, Other Symptoms Gastrointestinal: Denies: Nausea, Vomiting, Abdominal Pain, Diarrhea, Constipation, Melena, Hematochezia, Other Symptoms Endocrine: Denies: Polydipsia, Polyphagia, Polyuria, Heat Intolerance, Cold Intolerance, Other Endocrine Sx Musculoskeletal: Denies: Neck Pain, Back Pain, Shoulder Pain, Arm Pain, Hand Pain, Leg Pain, Foot Pain, Joint Pain, Muscle Pain, Spasms, Other Symptoms Neurological: Denies: Weakness, Numbness, Incoordination, Change in speech, Confusion, Seizures, Other Symptoms Objective Physical Examination Neck Exam: Positive: Supple Chest Exam: Positive: Clear to auscultation, Normal air movement Heart Exam: Positive: Tachycardic, Irregular Rhythm Telemetry: Positive: Atrial fibrillation Abdomen Exam: Positive: Normal bowel sounds, Other (. No more tenderness on examination) Extremity Exam: Positive: Normal pulses, Other (chronic discoloration of bilateral lower extremities) Skin Exam: Positive: Nl turgor and temperature Neuro Exam: Positive: Other (, mostly all extremities) Assessment /Plan Problems (1) SBO (small bowel obstruction) Status: Acute Problem Text: intra parental nutrition has was DC'd Tolerating oral feeding very well Abdominal is benign. No more tenderness. Bowel sounds present Continue simethicone Discussed with Dr. Myers. Patient's clinically stable for discharge to rehabilitation facility for placement (2) New onset atrial fibrillation Status: Acute Problem Text: We will stop Lovenox and is started on Eliquis L at [facility] as of Discussed with Dr. Causey regarding frequent pauses on satellite project site monitor in he recommended to DC metoprolol and also patient's cardiac rhythm on the monitor If the ventricular rate becomes very high. Again, then he might need a different oral medication to control the ventricular rate Monitor on satellite project site monitor without any beta blockers (3) Acute kidney injury superimposed on CKD Status: Acute Problem Text: Resolved with IV hydration Patient's BUN/creatinine is at baseline (4) Diabetes mellitus Status: Chronic Problem Text: Patient on fingerstick blood sugar every before meals and at bedtime with coverage (5) Sick sinus syndrome Status: Acute Problem Text: Discussed with Dr. Causey and Dr. Farnsworth, patient is scheduled for placement of permanent pacemaker secondary to sick sinus syndrome, as evident on patient's telemetry with a recurrent tachycardic episodes and bradycardic episodes with frequent pauses. Beta blockers have been stopped. Further, as per emergency room specialist recommendations Plan/VTE VTE Prophylaxis Ordered?: Yes VS, I&O, 24H, Fishbone Vital Signs/I&O Vital Signs Date Time Temp Pulse Resp B/P (MAP) Pulse Ox O2 Delivery O2 Flow Rate FiO2 04/26/19 08:00 97.0 76 18 132/92 (105) 95 Room Air 04/20/19 12:00 I&O- Last 24 Hours up to 6 AM 04/26/19 05:59 Intake Total 720 ml Output Total 825 ml Balance -105 ml Laboratory Data 24H LABS Laboratory Tests 2 04/25/19 11:45: Bedside Glucose (Misc Panel) 129H 04/25/19 16:29: Bedside Glucose (Misc Panel) 112H 04/25/19 19:44: Bedside Glucose (Misc Panel) 138H 04/26/19 05:01: Immature Granulocyte % (Auto) 1.0, Neutrophils (%) (Auto) 62.9, Lymphocytes (%) (Auto) 21.1L, Monocytes (%) (Auto) 10.2H, Eosinophils (%) (Auto) 3.7H, Basophils (%) (Auto) 1.1H, Neutrophils # (Auto) 4.0, Lymphocytes # (Auto) 1.3L, Monocytes # (Auto) 0.6, Eosinophils # (Auto) 0.2, Basophils # (Auto) 0.1, Nucleated Red Blood Cells % (auto) 0.0, Anion Gap 4L, Glomerular Filtration Rate > 60.0, Calcium Level 8.1L, Magnesium Level 1.7L, Total Bilirubin 0.4, Aspartate Amino Transf (AST/SGOT) 14, Alanine Aminotransferase (ALT/SGPT) 26, Alkaline Phosphatase 59, Total Protein 5.5L, Albumin 2.2L, Albumin/Globulin Ratio 0.67L CBC/BMP Laboratory Tests 1/27/20 05:01 SEBAS CATES MD Apr 26, 2019 10:09
[2019-04-26] MEDS: NYSTATIN 100,000 UNITS/GM TOPICAL PWD 15 GM TOP SCH ×2 (12:38→21:00)
[2019-04-26] MEDS ORDERED: LIDOCAINE 1% SDV INJ 30 ML VIAL As Ordered ONE (21:30)
[2019-04-26] MEDS ORDERED: ISOVUE-300 61% 50ML VIAL (Q9967) As Ordered ONE (21:31)
[2019-04-26] MEDS ORDERED: AMIODARONE 150MG/3ML INJ (J0282) As Ordered ONE (21:31)
[2019-04-26] MEDS ORDERED: BACITRACIN PWD 50,000 UNITS VIAL As Ordered ONE (21:31)
[2019-04-26] MEDS ORDERED: LIDOCAINE 2% INJ 100 MG/5 ML SDV (FOR ANES.) As Ordered ONE (22:07)
[2019-04-26] MEDS ORDERED: ONDANSETRON 4MG/2ML VIAL (J2405) As Ordered ONE (22:07)
[2019-04-26] MEDS ORDERED: fentaNYL 100 MCG/2 ML INJECTION (J3010) As Ordered ONE (22:07)
[2019-04-26] MEDS ORDERED: propofoL 200 MG/20 ML VIAL As Ordered ONE ×2 (22:07→22:54)
[2019-04-26] MEDS ORDERED: ceFAZolin 2 GM/D5W 50 ML IV BAG (J0690 PER 500MG) As Ordered ONE (22:18)
[2019-04-26] MEDS ORDERED: PHENYLephrine HCL 500 MCG/5 ML (100MCG/ML) SYRINGE (J2370) As Ordered ONE (23:08)
[2019-04-26] MEDS ORDERED: atenoloL 25 MG TAB As Ordered ONE (23:29)
[2019-04-26] MEDS: atenoloL 50 MG TAB PO SCH (23:40)
[2019-04-26] MEDS ORDERED: fentaNYL 100 MCG/2 ML INJECTION (J3010) IV PRN (23:45)
[2019-04-26] MEDS ORDERED: ONDANSETRON 4MG/2ML VIAL (J2405) IV PRN (23:45)
--- NOTE | 2019-04-27 00:15 | RO ---
DATE OF PROCEDURE: 04/26/2019 PREOPERATIVE DIAGNOSES: 1. Intermittent high-grade atrioventricular (AV) block (10-second pauses). 2. Permanent atrial fibrillation. 3. Hypertensive heart disease (benign with heart failure)/heart failure (diastolic/chronic). POSTOPERATIVE DIAGNOSES: 1. Intermittent high-grade atrioventricular (AV) block (10-second pauses). 2. Permanent atrial fibrillation. 3. Hypertensive heart disease (benign with heart failure)/heart failure (diastolic/chronic). PROCEDURE: Implantation of permanent single chamber ventricular demand pacemaker. IMPLANTING STEEL INSPECTOR: Dr. Jd Causey ANESTHESIOLOGIST: Dr. Mancini TYPE OF ANESTHESIA: Monitored local anesthesia. DESCRIPTION OF PROCEDURE: With the patient in the fasting state, having received informed consent and Ancef 2 grams IV premedication, the patient was taken to the operating theater. Numerous skin electrodes were applied to facilitate continuous electrocardiographic monitoring. The left subclavian region was prepped and draped in the usual fashion. The skin was infiltrated with 1% Xylocaine and the left axillary vein was catheterized using the micropuncture technique. A 5 cm linear incision was made several centimeters below and parallel to the left clavicle. Dissection was performed down to the level of the pectoralis fascia and a pocket was fashioned below the level of the incision line. A single bipolar active fixation screw-in steroid-eluting pacing lead was then positioned to the high right ventricular outflow tract under fluoroscopic and electrocardiographic control. The ventricular lead ([employer] - model number [id number], serial number [id number], MRI compatible) measurements were: Stimulation threshold 1.1V/ 0.4 ms/impedance 784 ohms. The R wave amplitude measured 12.4 mV. This lead was secured in position with sleeves sutured at its insertion site. The lead was then connected to a single chamber pulse generator ([employer], model number [id number], serial number [id number] - MRI compatible). Appropriate VVI pacing and sensing was documented. The subcutaneous tissues were approximated using a running chromic suture, and the skin was closed using hernan. A dry dressing was applied, and the patient was returned to the recovery room in good condition. Estimated blood loss: Less than 5 mL. No apparent complications. Postoperative portable upright chest x-ray confirmed appropriate lead position with no pneumothorax. His postoperative EKG is pending at this time. He will now return to the telemetry floor, and we will restart his beta terri - atenolol 50 mg by mouth daily to control his currently rapid ventricular response to atrial fibrillation. His oral anticoagulation Eliquis can be resumed April 28, 2019.
[2019-04-27 00:45] VITALS: BP 118/63
[2019-04-27 04:00] VITALS: BP 99/71
[2019-04-27] MEDS: ceFAZolin SOD 1 GM in D5W MINI-BAG PLUS 50 ML IV SCH ×3 (05:37→21:20)
[2019-04-27] MEDS: SODIUM CHLORIDE 0.9% INJ 10 ML SYR IV SCH ×2 (05:37→17:23)
[2019-04-27 05:59] LABS: BASO # 0.1 10^3/uL (0.0-0.2); BASO % 0.9 % (0.0-1.0); EOS # 0.2 10^3/uL (0.0-0.5); EOS % 3.6 % (0.0-3.0); HEMATOCRIT 40.6 % (42.0-52.0); HEMOGLOBIN 12.2 g/dl (13.5-17.5); LYMPH % 15.1 % (24.0-44.0); MEAN CORPUSCULAR HEMOGLOBIN 30.2 pg (27.0-33.0); MEAN CORPUSCULAR VOLUME 100.5 fl (80.0-96.0); MONO # 0.6 10^3/uL (0.0-0.8); MONO % 9.8 % (0.0-5.0); NEUTROPHILS # 4.5 10^3/uL (1.5-8.5); PLATELET COUNT, AUTOMATED 229 10^3/uL (150-450); RED BLOOD COUNT 4.04 10^6/uL (4.30-6.10); WHITE BLOOD COUNT 6.4 10^3/uL (4.0-10.0)
[2019-04-27 06:31] LABS: ALBUMIN 2.1 GM/DL (3.2-5.2); ALT/SGPT 29 U/L (12-78); BILIRUBIN,TOTAL 0.4 MG/DL (0.2-1.0); BLOOD UREA NITROGEN 22 MG/DL (7-18); CALCIUM LEVEL 7.8 MG/DL (8.8-10.2); CARBON DIOXIDE LEVEL 33 MEQ/L (21-32); CHLORIDE LEVEL 108 MEQ/L (98-107); CREATININE FOR GFR 0.99 MG/DL (0.70-1.30); GLUCOSE, FASTING 115 MG/DL (70-100); SODIUM LEVEL 143 MEQ/L (136-145); TOTAL PROTEIN 5.5 GM/DL (6.4-8.2)
[2019-04-27 06:34] LABS: MAGNESIUM LEVEL 2.1 MG/DL (1.8-2.4); POTASSIUM SERUM 4.9 MEQ/L (3.5-5.1)
--- NOTE | 2019-04-27 07:50 | REP ---
Portable chest, 11:38 p.m., single AP view with the patient semi upright, post pacemaker placement: Comparison is 10/07/2013. There is a single lead pacemaker entering from left with the pacing tip in satisfactory location in this single projection. There are skin hernan adjacent to the pacemaker generator. Lung carrizales are clear. The interstitium is mildly coarsened, unchanged, compatible with chronic lung disease. Cardiac size is enlarged, unchanged. The evin, mediastinum, skeletal structures are unremarkable. There is no pneumothorax or hemothorax. Impression: No pneumothorax or hemothorax. Pacemaker in satisfactory position. Other chronic changes as described. Electronically Signed by Xavier Mcbride MD 04/27/2019 07:42 A
[2019-04-27 08:00] VITALS: BP 106/56
[2019-04-27] MEDS: PANTOPRAZOLE 40MG TAB (PROTONIX) PO SCH (08:13)
[2019-04-27] MEDS: SIMETHICONE 80 MG CHEW TAB PO SCH ×4 (08:13→20:00)
[2019-04-27] MEDS: HumaLOG INSULIN (NovoLOG) PER UNIT SC SCH ×4 (08:13→20:48)
[2019-04-27] MEDS: DOCUSATE SODIUM 100 MG CAP PO SCH ×2 (08:14→19:59)
[2019-04-27] MEDS: NYSTATIN 100,000 UNITS/GM TOPICAL PWD 15 GM TOP SCH ×2 (08:14→20:01)
--- NOTE | 2019-04-27 08:20 | REP ---
PA and lateral chest: Comparison is 04/26/2019. There is a pacemaker entering from the left, unchanged. There are skin hernan adjacent to the pacemaker generator, unchanged. There is no pneumothorax or hemothorax. The lung carrizales are hyperinflated with flattening of the hemidiaphragms. The posterior sulci are effaced, however, this is likely secondary to hyperinflation. Cardiac size is enlarged. The evin, mediastinum, skeletal structures are unremarkable. Mild diffuse interstitial coarsening, unchanged, also unchanged from 10/07/2013, suggestive of chronic lung disease. Impression: No pneumothorax or hemothorax. Pacemaker. Cardiomegaly. Chronic mild interstitial coarsening. Electronically Signed by Xavier Mcbride MD 04/27/2019 08:12 A
--- NOTE | 2019-04-27 08:27 | IPN ---
DATE: 04/27/2019 Mr. Gore had his pacemaker placed by Dr. Causey last night. Unfortunately, due to the busy schedule in the OR, the procedure did not get done until really late, but nevertheless the patient tolerated it well. He has not had any significant problems overnight. Telemetry monitoring reveals principally reasonably rate-controlled atrial fibrillation with fairly rare on demand ventricular pacing. He this morning does not have any significant complaints. He would like to eat. He does complain about some pain in his feet. Vital Signs: Blood pressure 99/71. Heart rate in the 70s to low 100s, atrial fibrillation. Afebrile. Saturation 95% on 2 liters. Fluid balance yesterday was recorded negative 230. Weight is 106.3 kg. He is alert, oriented and appropriate. His lungs are reasonably clear. I do not appreciate wheezing or crackles. Heart exam reveals irregularly irregular rhythm with unchanged murmur. Abdomen is soft. There is prominent stasis dermatitis and peripheral edema. LABORATORIES: Basic metabolic panel: Sodium 143, potassium 4.9, BUN 22, creatinine 1, and glucose 115. CBC: Hemoglobin 12.2, hematocrit 40.6 and platelet count 229,000. ASSESSMENT/PLAN: Mr. Gore is an elderly man who has longstanding history of hypertension and who presented with small bowel obstruction. After he failed initial conservative management, he had surgical intervention and eventually recovered GI function. He also was found to be in atrial fibrillation with rapid ventricular response (RVR) that eventually was rate controlled. Unfortunately, as the hospitalization progressed, there was more and more evidence for sick sinus syndrome and eventually pacemaker was placed last night after the previous day he had pauses exceeding 10 seconds. The procedure was uneventful. Chest x-ray this morning is pending. Provided there are no problems, which seems likely, I believe that he will be able to be transferred to the rehabilitation floor possibly even today. He already was started on Eliquis by Dr. Causey and atenolol 50 mg was chosen for rate control. So far, it seems to be reasonably effective and if it needs to be the dose can be increased further.
[2019-04-27] MEDS: MAGNESIUM OXIDE 400 MG TAB (MAG-OX) PO SCH ×2 (08:29→20:01)
[2019-04-27] MEDS: atenoloL 50 MG TAB PO SCH (08:29)
[2019-04-27] MEDS ORDERED: METOPROLOL TART 50 MG TAB PO SCH (09:00)
--- NOTE | 2019-04-27 09:50 | IPN ---
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 He was started back on a regular diet on the . He has tolerated this well. He is having regular gas and intermittent stool from his colostomy. He reports that he does have some discomfort across the upper abdomen after eating, but this subsides over time. He remains mildly distended, but again this is without lasting pain. Vital Signs: Show that he has been afebrile. His pulse has been quite variable between the 60s and 100. The nurse informed me this morning that he apparently has had some pauses and is going to have a pacemaker placed later today. Intake and output shows that yesterday he had 720 recorded in with 875 recorded out. His total parenteral nutrition (TPN) has been stopped. PHYSICAL EXAMINATION: The patient is sitting up in a chair at the bedside. He appears fairly comfortable currently. He did have some breakfast this morning. He is alert and oriented. Abdomen is obese, but soft and his ostomy has some stool present. There are no new laboratory studies recorded today. IMPRESSION: The patient is making good progress from the surgery. He has been on a regular diet for three days without any nausea or vomiting and his ostomy is functioning. PLAN: The patient apparently is going to have a pacemaker placed later today. Once his medical issues are all adequately controlled, I see no reason for my standpoint that he could not be discharged when stable. MARLA
--- NOTE | 2019-04-27 10:52 | IPNPDOC ---
Subjective Date Seen The patient was seen on 04/27/19. Subjective Chief Complaint/HPI Patient is comfortable, tolerating oral feeding very well, had a pacemaker placed and yesterday General: Denies: ROS Unobtainable, Chills, Night Sweats, Fatigue, Malaise, Normal Appetite, Other Symptoms Constitutional: Denies: Chills, Fever, Malaise, Night Sweats, Weakness, Fatigue, Weight Loss, Lethargy, Other Pulmonary: Denies: Dyspnea, Cough, Pleuritic Chest Pain, Other Symptoms Cardiovascular: Denies: Chest Pain, Palpitations, Orthopnea, Paroxysmal Noc. Dyspnea, Edema, Lt Headedness, Other Symptoms Gastrointestinal: Denies: Nausea, Vomiting, Abdominal Pain, Diarrhea, Constipation, Melena, Hematochezia, Other Symptoms Genitourinary: Denies: Dysuria, Frequency, Incontinence, Hematuria, Retention, Other Symptoms Hematologic: Denies: Bruising, Bleeding Excessively, Petecchia, Purpura, Enlarged Lymph Nodes, Other Hematologic Musculoskeletal: Denies: Neck Pain, Back Pain, Shoulder Pain, Arm Pain, Hand Pain, Leg Pain, Foot Pain, Joint Pain, Muscle Pain, Spasms, Other Symptoms Neurological: Denies: Weakness, Numbness, Incoordination, Change in speech, Confusion, Seizures, Other Symptoms Objective Physical Examination Neck Exam: Positive: Supple Chest Exam: Positive: Clear to auscultation, Normal air movement Heart Exam: Positive: Tachycardic, Irregular Rhythm Telemetry: Positive: Atrial fibrillation Abdomen Exam: Positive: Normal bowel sounds, Other (. No more tenderness on examination) Extremity Exam: Positive: Normal pulses, Other (chronic discoloration of bilateral lower extremities) Skin Exam: Positive: Nl turgor and temperature Neuro Exam: Positive: Other (, mostly all extremities) Assessment /Plan Problems (1) SBO (small bowel obstruction) Status: Acute Problem Text: intra parental nutrition has was DC'd Tolerating oral feeding very well Abdominal is benign. No more tenderness. Bowel sounds present Continue simethicone Follow up by Dr. Louis duff Awaiting placement to rehabilitation facility (2) New onset atrial fibrillation Status: Acute Problem Text: Patient had a permanent pacemaker placed and yesterday secondary to sick sinus syndrome Patient has been started on atenolol 51 g by mouth daily by cardiology for base line atrial fibrillation Eliquis was will be started as of tomorrow for anticoagulation Awaiting transfer to rehabilitation facility (3) Acute kidney injury superimposed on CKD Status: Acute Problem Text: Resolved with IV hydration Patient's BUN/creatinine is at baseline (4) Diabetes mellitus Status: Chronic Problem Text: Patient on fingerstick blood sugar every before meals and at bedtime with coverage (5) Sick sinus syndrome Status: Acute Problem Text: Status post permanent pacemaker placement Continue atenolol 50 mg by mouth daily Plan/VTE VTE Prophylaxis Ordered?: Yes VS, I&O, 24H, Fishbone Vital Signs/I&O Vital Signs Date Time Temp Pulse Resp B/P (MAP) Pulse Ox O2 Delivery O2 Flow Rate FiO2 04/27/19 08:29 86 106/56 04/27/19 08:00 97.1 20 89 Nasal Cannula 04/27/19 04:00 2.0 I&O- Last 24 Hours up to 6 AM 04/27/19 06:00 Intake Total 820 ml Output Total 880 ml Balance -60 ml Laboratory Data 24H LABS Laboratory Tests 2 04/26/19 11:50: Bedside Glucose (Misc Panel) 128H 04/26/19 17:13: Bedside Glucose (Misc Panel) 96 04/27/19 00:50: Bedside Glucose (Misc Panel) 111H 04/27/19 05:35: Immature Granulocyte % (Auto) 0.6, Neutrophils (%) (Auto) 70.0H, Lymphocytes (%) (Auto) 15.1L, Monocytes (%) (Auto) 9.8H, Eosinophils (%) (Auto) 3.6H, Basophils (%) (Auto) 0.9, Neutrophils # (Auto) 4.5, Lymphocytes # (Auto) 1.0L, Monocytes # (Auto) 0.6, Eosinophils # (Auto) 0.2, Basophils # (Auto) 0.1, Nucleated Red Blood Cells % (auto) 0.0, Anion Gap 2L, Calcium Level 7.8L, Magnesium Level 2.1, Total Bilirubin 0.4, Aspartate Amino Transf (AST/SGOT) 26, Alanine Aminotransferase (ALT/SGPT) 29, Alkaline Phosphatase 65, Total Protein 5.5L, Albumin 2.1L, Albumin/Globulin Ratio 0.62L CBC/BMP Laboratory Tests 04/27/19 05:35 SEBAS CATES MD Apr 27, 2019 10:52
[2019-04-27 12:00] VITALS: BP 95/52
[2019-04-27] MEDS: SODIUM CHLORIDE 0.9% INJ 10 ML SYR IV PRN (13:48)
[2019-04-27 16:00] VITALS: BP 104/72
--- NOTE | 2019-04-27 17:15 | IPN ---
DATE: 04/27/2019 PACEMAKER SERVICE NOTE SUBJECTIVE: Patient has had minimal left shoulder discomfort following his pacemaker implant last evening. Continues to be unaware of his heart action. Was given atenolol 50 mg by mouth yesterday in order to control his rapid ventricular response atrial fibrillation. Remains free of any faintness or lightheadedness. OBJECTIVE: Pleasant, obese elderly male lay comfortably with the head of the bed elevated 20 degrees. Heart rate averaging in the 80s per minute, blood pressure last recorded was somewhat soft in the 90s over 50 with only his beta-terri therapy. Respiratory rate recorded at 30, but appears actually perfectly comfortable with rate more in keeping with 18 per minute, oxygen (O2) saturation was 92% on nasal cannula. Afebrile. His weight today is essentially stable. No pallor or cyanosis. Normal oral moisture. Trachea midline. Slightly increased anteroposterior chest diameter with adequate chest expansion. His left subclavian pacemaker incision appears to be healing well with no ecchymosis or swelling. His dressing was changed. CARPET CUTTER: Remains in atrial fibrillation with significantly improved rate control with atenolol 50 mg alone. EKG: Again this shows underlying atrial fibrillation with ventricular response averaging 102 beats per minute, considerably slower than it was last evening at 130 beats per minute. Continues to have a right bundle branch block and primary repolarization abnormalities that are not significantly changed. CHEST X-RAY: PA and left lateral study performed earlier today was also reviewed independently and shows obvious cardiomegaly with unfolded thoracic aorta, pulmonary vascular congestion, and small bilateral pleural effusions. His pacemaker is stable in position with pulse generator left subclavian region and pacing lead terminating in the high right ventricular outflow tract. No pneumothorax. PACEMAKER INTERROGATION: [employer] - Assurity MRI compatible, model number 1272. Set with low rate 60 beats per minute (bpm) VVI. Excellent intracardiac electrograms measuring 11 mV. His pacing threshold was also excellent at 0.5 volts/0.4 milliseconds. His anticipated battery longevity is at least 10 years or more. No program changes were made today. IMPRESSION/PLAN: 1. Intermittent high-grade atrioventricular (AV) block/single chamber pacemaker in situ: His incision is healing well with minimal discomfort. We have recommended that he perform only light activities of daily living with his left arm until his hernan are removed in our office in 7-10 days time. We have also requested that he avoid getting his incision wet until that time. I understand he may be transferred to inpatient physical rehabilitation at which point we may well be removing his hernan while he is still in the hospital. 2. Atrial fibrillation - permanent: Remains free of any awareness of his heart action. His heart rate control is dramatically improved today with atenolol 50 mg. However, it is possible that his blood pressure will not tolerate this dosage, and he may require a combination of low-dose digoxin and atenolol 25 mg daily. I will defer this to Dr. Farnsworth, his primary machine silver stripper. His oral anticoagulation, Eliquis, has been resumed without problem. 3. Hypertensive heart disease (benign with heart failure)/heart failure (diastolic dysfunction): Despite his x-ray appearance, is lying comfortably flat without dyspnea. Note is made of his mild hypoxemia. Currently on supplemental oxygen by nasal prongs. Given his blood pressure, it may be difficult to administer diuretic therapy at this time. Chemistry confirmed electrolyte balance. BUN 22, creatinine 0.99. These issues will be deferred to Dr. Farnsworth. I thank you for allowing us to participate in the care of your patient.
[2019-04-27 20:00] VITALS: BP 108/56
[2019-04-28] VITALS: BP 104/58
[2019-04-28 04:00] VITALS: BP 117/73
[2019-04-28] MEDS: SODIUM CHLORIDE 0.9% INJ 10 ML SYR IV SCH (05:24)
[2019-04-28 05:53] LABS: BASO # 0.1 10^3/uL (0.0-0.2); BASO % 0.9 % (0.0-1.0); EOS # 0.2 10^3/uL (0.0-0.5); EOS % 3.6 % (0.0-3.0); HEMATOCRIT 38.7 % (42.0-52.0); HEMOGLOBIN 12.2 g/dl (13.5-17.5); LYMPH # 1.4 10^3/uL (1.5-5.0); LYMPH % 22.2 % (24.0-44.0); MEAN CORPUSCULAR HEMOGLOBIN 31.2 pg (27.0-33.0); MEAN CORPUSCULAR HGB CONC 31.5 g/dl (32.0-36.5); MONO # 0.6 10^3/uL (0.0-0.8); MONO % 8.6 % (0.0-5.0); NEUTROPHILS # 4.1 10^3/uL (1.5-8.5); NEUTROPHILS % 63.9 % (36.0-66.0); PLATELET COUNT, AUTOMATED 222 10^3/uL (150-450); RED BLOOD COUNT 3.91 10^6/uL (4.30-6.10); WHITE BLOOD COUNT 6.4 10^3/uL (4.0-10.0)
[2019-04-28 06:17] LABS: ALBUMIN 2.2 GM/DL (3.2-5.2); ALT/SGPT 20 U/L (12-78); BILIRUBIN,TOTAL 0.5 MG/DL (0.2-1.0); BLOOD UREA NITROGEN 26 MG/DL (7-18); CALCIUM LEVEL 8.3 MG/DL (8.8-10.2); CARBON DIOXIDE LEVEL 30 MEQ/L (21-32); CHLORIDE LEVEL 104 MEQ/L (98-107); CREATININE FOR GFR 1.19 MG/DL (0.70-1.30); GLOMERULAR FILTRATION RATE > 60.0 (>35); GLUCOSE, FASTING 102 MG/DL (70-100); POTASSIUM SERUM 4.2 MEQ/L (3.5-5.1); SODIUM LEVEL 138 MEQ/L (136-145); TOTAL PROTEIN 5.6 GM/DL (6.4-8.2)
[2019-04-28 08:00] VITALS: BP 121/79
[2019-04-28 08:08] VITALS: BP 102/64
--- NOTE | 2019-04-28 08:33 | IPN ---
DATE: 04/28/2019 Mr. Gore is feeling better today. He has not had any significant events yesterday. He has good oral intake but the ambulation has been difficult. He now cannot use his left arm for support and he recognizes that since his acute illness he lost a lot of force and it has been challenging for him to ambulate in general. PHYSICAL EXAMINATION: VITAL SIGNS: Blood pressure 117/73 and for the most part has been in similar range, heart rate is from 60s to 90s atrial fibrillation with very rare on demand pacing. He has been afebrile. Saturation 92% on room air. Fluid balance yesterday was recorded about approximately equal even though his weight is up 108. Difficult to assess his jugular venous pressure with his ornelas and body habitus but it does not look high. Lungs are reasonably clear. I do not appreciate any wheezing or crackles. Heart exam reveals irregularly irregular rhythm. I do not appreciate a murmur of mitral regurgitation or tricuspid regurgitation. Abdomen is obese but soft. Bowel sounds are present. There is stool in his colostomy bag. His legs still are mildly edematous and there is very prominent stasis dermatitis. LABORATORY: Hemoglobin 12.2, hematocrit 38, platelet count 222,000. Basic metabolic panel is essentially normal. Albumin is 2.2. His chest x-ray yesterday revealed appropriate position of the pacing lead and no pneumothorax, but it was suggestive of possibly mild vascular congestion. ASSESSMENT: Mr. Gore is an 83-year-old man who has a history of hypertensive heart disease but no history of coronary artery disease or congestive heart failure. He presented with small bowel obstruction and simultaneously was found to be in atrial fibrillation with rapid ventricular response. He was initially rate controlled but eventually started developing more convincing signs of sick sinus syndrome and dual chamber pacemaker was placed by Dr. Causey. At this point, I believe he can be transferred for rehabilitation. Unfortunately, he is not strong enough to be able to go home where he normally takes care of his . At this point, from cardiac perspective, he has been anticoagulated with Eliquis 5 twice a day and he is receiving 50 mg of atenolol daily for rate control. He has not been receiving any diuretics, and I would wait probably another day or two but then I think we should give low-dose furosemide 20 mg daily.
[2019-04-28 08:58] VITALS: BP 121/77
[2019-04-28] MEDS: atenoloL 50 MG TAB PO SCH (08:58)
[2019-04-28] MEDS: APIXABAN 5 MG TAB (ELIQUIS) PO SCH ×2 (08:58→09:40)
[2019-04-28] MEDS: SIMETHICONE 80 MG CHEW TAB PO SCH ×2 (08:58→12:28)
[2019-04-28] MEDS: PANTOPRAZOLE 40MG TAB (PROTONIX) PO SCH (08:59)
[2019-04-28] MEDS: HumaLOG INSULIN (NovoLOG) PER UNIT SC SCH ×2 (08:59→12:29)
[2019-04-28] MEDS: MAGNESIUM OXIDE 400 MG TAB (MAG-OX) PO SCH (08:59)
[2019-04-28] MEDS: DOCUSATE SODIUM 100 MG CAP PO SCH (08:59)
[2019-04-28] MEDS: NYSTATIN 100,000 UNITS/GM TOPICAL PWD 15 GM TOP SCH (09:00)
[2019-04-28 12:00] VITALS: BP 116/78
[2019-04-28] MEDS ORDERED: ELIQ5TAB PO (13:02)
[2019-04-28] MEDS ORDERED: ATEN50TA2 PO (13:02)
--- NOTE | 2019-04-28 13:26 | DS.PDOC ---
Discharge Summary General Date of Admission Apr 11, 2019 at 15:31 Date of Discharge 04/28/19 Attending Physician: MARK BANKS MD Discharge Summary PROCEDURES PERFORMED DURING STAY: None. ADMITTING DIAGNOSES: 1. Small bowel obstruction, new onset atrial fibrillation with rapid ventricular response, sick sinus syndrome. DISCHARGE DIAGNOSES: 1. Small bowel obstruction, new onset atrial fibrillation with rapid ventricular response, sick sinus syndrome. COMPLICATIONS/CHIEF COMPLAINT: New Onset Atrial Fibrillation. HISTORY OF PRESENT ILLNESS: 9-year-old male with past medical history of hypertension, rectal CA status post colectomy with colostomy, diabetes mellitus, COPD and peripheral artery disease was admitted for small bowel obstruction and new onset A. fib with RVR. Patient was initially monitored in the ICU setting. Heart rate has been well controlled, currently on atenolol, being anticoagulated with Eliquis. Patient was evaluated by cardiology, had multiple episodes of pause on telemetry monitoring, longest one about 10 seconds, permanent pacemaker was put in for sick sinus syndrome. Patient's small bowel structure was initially managed medically with nothing by mouth, NG tube, but there was no improvement after a few days. Patient eventually was taken to the OR with lysis of adhesions, parastomal hernia repair with mesh. Patient is currently toleratin g diet, having minimal stool output from his ostomy, without any complaints at this time. Patient is continuing to improve clinically, evaluated by physical therapy, will require rehabilitation prior to discharge. Patient has been accepted to acute rehabilitation unit and will be sent later today. HOSPITAL COURSE: As above. DISCHARGE MEDICATIONS: Please see below. ALLERGIES: Please see below. PHYSICAL EXAMINATION: VITAL SIGNS: Please see below. GENERAL: No distress HEENT: Normocephalic, atraumatic, moist mucous membranes NECK: Supple CARDIOVASCULAR EXAMINATION: Irregularly irregular RESPIRATORY EXAMINATION: Scattered rhonchi, no wheezing ABDOMINAL EXAMINATION: Soft, nontender, nondistended, positive bowel sounds, ostomy with small amount of liquid stool EXTREMITIES: Bilateral lower extremity edema with venous stasis changes and significant tenderness to palpation from neuropathy SKIN: Bilateral lower extremity venous stasis changes NEUROLOGICAL EXAMINATION: Alert and oriented 3, no focal deficits PSYCHIATRIC EXAMINATION: Calm and cooperative LABORATORY DATA: Please see below. IMAGING: CT abdomen showing Small bowel obstruction with parastomal hernia PROGNOSIS: Fair ACTIVITY: As tolerated. DIET: Cardiac DISCHARGE PLAN: Will be sent to ARU, follow-up with pediatric medical assistant, general surgeon and PCP after discharge DISPOSITION: Acute rehabilitation unit. DISCHARGE INSTRUCTIONS: 1. As above. DISCHARGE CONDITION: Stable. TIME SPENT ON DISCHARGE: Greater than 35 minutes. Vital Signs/I&Os Vital Signs Date Time Temp Pulse Resp B/P (MAP) Pulse Ox O2 Delivery O2 Flow Rate FiO2 04/28/19 08:58 100 121/77 04/28/19 08:00 97.9 18 94 Room Air 04/27/19 04:00 2.0 I&O- Last 24 Hours up to 6 AM 04/28/19 06:00 Intake Total 1200 ml Output Total 1150 ml Balance 50 ml Laboratory Data Labs 24H Laboratory Tests 2 04/27/19 17:00: Bedside Glucose (Misc Panel) 111H 04/27/19 20:45: Bedside Glucose (Misc Panel) 128H 04/28/19 05:31: Immature Granulocyte % (Auto) 0.8, Neutrophils (%) (Auto) 63.9, Lymphocytes (%) (Auto) 22.2L, Monocytes (%) (Auto) 8.6H, Eosinophils (%) (Auto) 3.6H, Basophils (%) (Auto) 0.9, Neutrophils # (Auto) 4.1, Lymphocytes # (Auto) 1.4L, Monocytes # (Auto) 0.6, Eosinophils # (Auto) 0.2, Basophils # (Auto) 0.1, Nucleated Red Blood Cells % (auto) 0.0, Anion Gap 4L, Glomerular Filtration Rate > 60.0, Calcium Level 8.3L, Magnesium Level 2.0, Total Bilirubin 0.5, Aspartate Amino Transf (AST/SGOT) 16, Alanine Aminotransferase (ALT/SGPT) 20, Alkaline Phosp hatase 65, Total Protein 5.6L, Albumin 2.2L, Albumin/Globulin Ratio 0.65L 04/28/19 11:38: Bedside Glucose (Misc Panel) 109 CBC/BMP Laboratory Tests 04/28/19 05:31 FSBS Laboratory Tests Test 04/27/19 17:00 04/27/19 20:45 04/28/19 11:38 Range/Units Bedside Glucose (Misc Panel) 111 128 109 83-110 MG/DL Discharge Medications Scheduled Allopurinol (Allopurinol) 100 Mg Tab, 100 MG PO BID, (Reported) Apixaban (Eliquis) 5 Mg Tablet, 5 MG PO BID Aspirin (Aspir 81) 81 Mg Tab, 81 MG PO DAILY, (Reported) Atenolol (Atenolol) 50 Mg Tablet, 50 MG PO DAILY Calcium Carbonate/Vitamin D3 (Calcium 600-Vit D3 200 Tablet) 1 Tab Tab, 1 TAB PO DAILY, (Reported) Esomeprazole Magnesium (Nexium) 40 Mg Cap, 40 MG PO DAILY, (Reported) Pravastatin Sodium (Pravastatin Sodium) 40 Mg Tab, 40 MG PO QHS, (Reported) Scheduled PRN Ipratropium/Albuterol Sulfate (Iprat-Albut 0.5-3(2.5) mg/3 ml) 1 Franklyn Franklyn, 1 FRANKLYN INH QIDP PRN for SHORTNESS OF BREATH, (Reported) Allergies Coded Allergies: No Known Allergies (Unverified , 07/16/18) MARK BANKS MD Apr 28, 2019 13:26
--- NOTE | 2019-04-29 00:43 | ECGEPIP ---
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
--- NOTE | 2019-04-29 01:02 | ECGEPIP ---
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
--- NOTE | 2019-04-29 01:08 | ECGEPIP ---
[facility] Test Date: 2019-04-27 Pat Name: KIESHA CH Department: Room: [place] [address] Gender: Male C Developer: ALICIA : 1935 Requested By: Jd Causey Order Number: [id number] Reading MD: Maximo Horvath Measurements Intervals [place] Rate: 102 P: VT: 0 QRS: 24 QRSD: 132 T: 44 QT: 391 QTc: 509 Interpretive Statements ATRIAL FIBRILLATION WITH RAPID VENTRICULAR RESPONSE RIGHT BUNDLE BRANCH BLOCK Compared to prior tracings in the system, Atrial Fib is not new Electronically Signed on 04-29-2019 1:08:32 EST by Maximo Horvath
== END 2019-04-28 15:45 | DRG 336 ==
LOC: M ED 10:53 → EDBD 10:53 → M ED INP 15:31 → ENRESERVDT 15:50 → ENRESERVTM 15:50 → M ICU 16:23 → M PCU 04-14 18:01
PROVIDERS: ADMIT Internal Medicine; ATTEND Internal Medicine
PROC: 0WUF4JZ Supplement Abdominal Wall with Synthetic Substitute, Percutaneous Endoscopic Approach (ICD-10-PCS; 2019-04-15)
PROC: 0DNU4ZZ Release Omentum, Percutaneous Endoscopic Approach (ICD-10-PCS; principal; 2019-04-15 16:30)
PROC: 3E0436Z Introduction of Nutritional Substance into Central Vein, Percutaneous Approach (ICD-10-PCS; 2019-04-17)
PROC: 02HV33Z Insertion of Infusion Device into Superior Vena Cava, Percutaneous Approach (ICD-10-PCS; 2019-04-19)
PROC: 0JH604Z Insertion of Pacemaker, Single Chamber into Chest Subcutaneous Tissue and Fascia, Open Approach (ICD-10-PCS; 2019-04-26)
PROC: 02HK3MZ Insertion of Cardiac Lead into Right Ventricle, Percutaneous Approach (ICD-10-PCS; 2019-04-26)
DX: K43.3 Parastomal hernia with obstruction, without gangrene (principal); N17.9 Acute kidney failure, unspecified; I13.0 Hypertensive heart and chronic kidney disease with heart failure and stage 1 through stage 4 chronic kidney disease, or unspecified chronic kidney disease; E46 Unspecified protein-calorie malnutrition; K56.7 Ileus, unspecified; I48.21 Permanent atrial fibrillation; I50.32 Chronic diastolic (congestive) heart failure; I44.2 Atrioventricular block, complete; E87.6 Hypokalemia; N18.3 Chronic kidney disease, stage 3 (moderate); Z85.048 Personal history of other malignant neoplasm of rectum, rectosigmoid junction, and anus; Z92.21 Personal history of antineoplastic chemotherapy; Z90.49 Acquired absence of other specified parts of digestive tract; E11.22 Type 2 diabetes mellitus with diabetic chronic kidney disease; J44.9 Chronic obstructive pulmonary disease, unspecified; E78.5 Hyperlipidemia, unspecified; I87.2 Venous insufficiency (chronic) (peripheral); I49.5 Sick sinus syndrome; D64.9 Anemia, unspecified; E11.649 Type 2 diabetes mellitus with hypoglycemia without coma; E83.39 Other disorders of phosphorus metabolism; J45.909 Unspecified asthma, uncomplicated; K66.0 Peritoneal adhesions (postprocedural) (postinfection); E11.51 Type 2 diabetes mellitus with diabetic peripheral angiopathy without gangrene; E66.9 Obesity, unspecified; K21.9 Gastro-esophageal reflux disease without esophagitis; M10.9 Gout, unspecified; G47.33 Obstructive sleep apnea (adult) (pediatric); Z79.82 Long term (current) use of aspirin; Z79.899 Other long term (current) drug therapy; Z87.891 Personal history of nicotine dependence; Z98.41 Cataract extraction status, right eye; Z98.42 Cataract extraction status, left eye; Z68.34 Body mass index [BMI] 34.0-34.9, adult

== ENCOUNTER 2019-04-28 11:42 | Inpatient (IN) | payer MEDICARE, OTHER ==
[~2019-04-28] VITALS: Ht 170.2 cm; Wt 109.4 kg
[~2019-04-28 11:42] MED LIST changes: +K-TA10TA2 PO; +METO1TAB33 PO; -PANTOPRAZOLE 40MG INJ (PROTONIX) (C9113) IV SCH
[2019-04-28] MEDS ORDERED: oxyCODONE 5MG TAB PO PRN (12:30)
--- NOTE | 2019-04-28 13:00 | HPEPDOC ---
Insurance Law Specialist Note DATE OF ADMISSION: 04-28-19 DATE OF SERVICE: 04-28-19 TIME OF ADMISSION: Please refer to physician's admission order. SOURCE OF ADMISSION INFORMATION: [facility] record and patient CHIEF COMPLAINT: new onset Afib HISTORY OF PRESENT ILLNESS: 83M pmh DM, COPD, HTN, HLD, PAD, diastolic CHF, CKD3, EOTH and tobacco abuse in the past, rectal cancer s/p chemotherapy with colostomy, admitted to [facility] ED for SBO in setting of parastomal hernia on 04-11-19. NGT was placed and he underwent lysis of adhesions on 04-15-19 and reduction of his incarcerated hernia. He was later evaluated by cardiology for rapid Afib with RVR and elevated cardiac enzymes. cardiology placed him on a short course of digoxin and started him on Atenolol. Later he was noted to have high grade AV block and underwent PM placement on 04-27-19. He also developed acute kidney failure for which renal was consulted and recommended gentle hydration. He was evaluated by therapy and noted to have significant deconditioning requiring assistance in ADLs and mobility well below his prior level of function and deemed medically appropriate for discharge to ARU. Upon initial eval patient reports he has had a weak urinary stream and that his feet are numb and tingling from longstanding DM which he reports is diet controlled. REVIEW OF SYSTEMS: The following is a completed review of systems and has been reviewed. Review of systems otherwise unremarkable. PAIN: Patient self reports left chest wall pain with arm movement EYES: No recent vision changes EARS, NOSE, & THROAT: No throat pain, or dysphagia, or rhinorrhea CARDIOVASCULAR: Denies chest pain or palpitations PULMONARY: Denies shortness of breath GASTROINTESTINAL: Denies constipation/diarrhea, +colostomy GENITOURINARY: +weak stream MUSCULOSKELETAL: generalized weakness NEUROLOGICAL:+peripheral polyneuropathy HEMATOLOGICAL: denies easy bruising SKIN:+ hyperkeratotic PSYCHIATRIC: Unremarkable All other review of systems found to be negative. PAST MEDICAL HISTORY: as per HPI PAST SURGICAL HISTORY: Abdominal perineal resection with right-sided his ostomy in 2011. Tonsillectomy. Ostomy hernia repair, cataract surgeries and right sided inguinal hernia repair ALLERGIES: Please see below. MEDICATIONS: Please see below. FAMILY HISTORY: cancer SOCIAL HISTORY: ex-smoker, past ETOH abuse, no illicit drugs DIET: no sodium, fluid restrict PHYSICAL EXAMINATION: VITAL SIGNS: Please see below. GENERAL: Pleasant and cooperative. No acute distress. HEENT: PERRL. Extraocular movements intact. Clear conjunctiva CARDIOVASCULAR: Regular rate and rhythm. No murmurs, rubs, or gallops LUNGS: Clear to auscultation bilaterally. No wheezes. No rhonchi ABDOMEN: Mildly tender, mildly distended, no guarding or rebound tenderness. Positive bowel sounds. +horizontal incision NEUROLOGICAL: Alert and oriented times three. Cranial nerves II through XII grossly intact. Sensation grossly intact] EXTREMITIES: 4\5 strength bilateral upper extremities. 4\5 strength right lower extremity. 4/5 strength in left lower extremity. (-) homans (+) pedal pulses SKIN: +venous stasis changes bilat LE with hyperkeratotic skin, sacrum with blanchable erythema LABORATORY DATA: Please see below. IMAGING: Imaging documentation personally reviewed by record FUNCTIONAL STATUS: Premorbid: Modified Independent with all activities of daily life as well as mobility On Admission: Min assist with RW ambulating 19 feet, functional transfers, bed mobility, dressing. GOALS: Mod-I with household distances, functional transfers, dressing, toileting, bathing, medical optimization, assess for DMEs. ASSESSMENT:83-year-old M with past medical history of chronic diastolic CHF who presents status post SBO with reduction of his parastomal hernia with new onset Afib PLAN: 1. Rehab- PT, OT advance gait training and ADLs, pacemaker precautions, endurance training and energy conservation, strengthen/stretch/maintain ROM all 4 limbs 2. Neuro: no known hx, monitor for delirium 3. cardiac: chronic diastolic CHF with new onset Afib, c/u Atenolol and Eliquis- fluid restrict, daily weights, medicine consulted to assist in management -Av-block with sick sinus rhythm, s/p PM placement 04-27-19 -f/u cardiology on d/c 4. Resp: hx of COPD, c/u Duonebs, incentive spirometry, supplemental 02 prn, monitor for infection 5. Renal: ckd with recent amalia, monitor-renal consulted 6. Endo: pmh diet controlled DM with peripheral polyneuropathy contributing to gait and mobility impairment 6. GI: s/p lysis of adhesions on 04-15-19 and reduction of his incarcerated hernia in setting of colostomy -ppx: protonix, bowel meds, simethicone 7. DVT ppx: on eliquis, teds 8. Pain: tylenol 1g tid, oxycodone 2.5 q6h prn 9. : per patient likely BPH will start Flomax 10. Psych: trzodone for insomnia 11. Dispo: tbd POST ADMISSION PHYSICIAN EVALUATION: Medical and functional status: Description of medical status, medical asses sment: As above. Rehabilitation diagnosis and current and prior cold morbid medical conditions as above. Risk of complications and plans to mitigate them as above. Description of functional status current status is as above. Prior status as above. Status compared to preadmission: There are no clinically significant differences between the patient's current status and the information described on the preadmission screening document. Treatment plan anticipated: Treatment plan is as described above. Required disciplines including physical therapy, occupational therapy, others as noted darryn patel. Intensity of services: 3 hours a day, 6 days a week. Special considerations: There are no specific special or safety considerations that would likely preclude immediate implementation of an intensive rehabilitation program or subsequently influence the plan of care. ATTESTATION: Considering all the information above, it is my best judgment that this patient requires intensive rehabilitation therapy as described above and an inpatient hospital environment due to the complexity of nursing, medical, and rehabilitation needs required by the patient. Furthermore, this patient can reasonably be expected to participate in an benefit from an inpatient rehabilitation stay with an interdisciplinary team approach to the delivery of rehabilitation care under the direction and supervision of rehabilitation physician PROGNOSIS: Good ESTIMATED LENGTH OF STAY:18-21 days. PROJECTED DISCHARGE DESTINATION: Home with family support and any durable medical equipment required to increase functional safety and mobility. TIME SPENT COUNSELING AND COORDINATING INITIAL CARE: Greater than 70 minutes. Vital Signs please see EMR Home Medications Scheduled Allopurinol (Allopurinol) 100 Mg Tab, 100 MG PO BID, (Reported) Apixaban (Eliquis) 5 Mg Tablet, 5 MG PO BID Aspirin (Aspir 81) 81 Mg Tab, 81 MG PO DAILY, (Reported) Atenolol (Atenolol) 50 Mg Tablet, 50 MG PO DAILY Calcium Carbonate/Vitamin D3 (Calcium 600-Vit D3 200 Tablet) 1 Tab Tab, 1 TAB PO DAILY, (Reported) Esomeprazole Magnesium (Nexium) 40 Mg Cap, 40 MG PO DAILY, (Reported) Pravastatin Sodium (Pravastatin Sodium) 40 Mg Tab, 40 MG PO QHS, (Reported) Scheduled PRN Ipratropium/Albuterol Sulfate (Iprat-Albut 0.5-3(2.5) mg/3 ml) 1 Franklyn Franklyn, 1 FRANKLYN INH QIDP PRN for SHORTNESS OF BREATH, (Reported) Allergies Coded Allergies: No Known Allergies (Unverified , 07/16/18) A-FIB/CHADSVASC A-FIB History Current/History of A-Fib/PAF?: Yes Current PO Anticoag Therapy: Yes NATA VANESSA MD Apr 28, 2019 13:00
[2019-04-28] MEDS ORDERED: ATEN50TA2 PO (13:02)
[2019-04-28] MEDS ORDERED: ELIQ5TAB PO (13:02)
[2019-04-28] MEDS ORDERED: GLUCOSE 4 GM CHEW TABLET PO PRN (15:15)
[2019-04-28] MEDS ORDERED: DEXTROSE 50% 50 ML SYRINGE IV PRN (15:15)
[2019-04-28] MEDS ORDERED: GLUCAGON FOR INJ 1 MG VIAL (J1610) SC PRN (15:15)
[2019-04-28 15:57] VITALS: BP 133/76
[2019-04-28] MEDS: REMEDY PHYTOPLEX Z-GUARD PASTE 113GM TUBE (FROM STOREROOM PRODUCT) TOP SCH ×2 (16:00→21:00)
[2019-04-28] MEDS: SIMETHICONE 80 MG CHEW TAB PO SCH ×2 (17:00→20:54)
[2019-04-28] MEDS ORDERED: PILL CUTTER 1 EACH XX PRN (17:30)
[2019-04-28] MEDS: ACETAMINOPHEN 500 MG TAB PO SCH ×2 (17:53→20:57)
[2019-04-28] MEDS: HumaLOG INSULIN (NovoLOG) PER UNIT SC SCH ×2 (17:54→20:57)
--- NOTE | 2019-04-28 19:34 | IPN ---
DATE: 04/28/2019 HISTORY: Patient is now 13 days postop from laparoscopy with repair of incarcerated ventral and parastomal hernias with placement of mesh. He has been tolerating a regular diet well. He feels as if his bowel movements are not as large as they had been, but he is not having any nausea or vomiting or abdominal pain. His pacemaker was placed two days ago and he has tolerated this well. Vital signs show that he has been afebrile over the past 24 hours. Pulse is ranging between 60 and 100 basically. His blood pressure is good. Intake and output shows that he had 950 mL in yesterday with 900 of urine output. He did have one bowel movement recorded yesterday as moderate. His weight is up some over the last few days, based on his recorded weights. PHYSICAL EXAMINATION: Patient is reclining in the recliner at his bedside. He is alert and oriented. His skin is warm and dry. Heart exam shows an irregular rhythm that is not tachycardiac. The abdomen is obese but soft and without any tenderness. His ostomy appears healthy. Laboratory studies today show a white count of 6, with a differential showing 64% neutrophils, 22% lymphocytes and 9% monocytes. His hemoglobin is 12, with a hematocrit of 39 and platelet count of 222,000. Chemistry profile shows normal electrolytes with a BUN of 26, creatinine 1.2 and a glucose of 102. Liver function tests are normal, with a protein of 5.6 and an albumin of 2.2. IMPRESSION: Patient is doing very well currently. He remains in atrial fibrillation with an irregular rate, but has a pacemaker in place now to avoid significant bradycardia. He appears to be doing well from his surgery with good function of his colostomy. PLAN: Patient apparently is pending transfer to the acute rehabilitation unit to allow him to regain some strength. This seems like an excellent idea. He can follow up in the office in a few weeks whenever he has completed his acute rehabilitation and moved on hopefully to home. MARLA
[2019-04-28] MEDS: IPRATROPIUM 0.5MG/ALBUTEROL 2.5MG INH SOL UD 3ML (DUONEB)(J7620) NEB SCH (20:11)
[2019-04-28] MEDS: APIXABAN 5 MG TAB (ELIQUIS) PO SCH (20:54)
[2019-04-28] MEDS: MAGNESIUM OXIDE 400 MG TAB (MAG-OX) PO SCH (20:54)
[2019-04-28] MEDS: TAMSULOSIN 0.4 MG CAP PO SCH (20:57)
[2019-04-28] MEDS: DOCUSATE SODIUM 100 MG CAP PO SCH (20:57)
[2019-04-28] MEDS: traZODone 25MG PER 1/2 TABLET PO SCH (20:57)
[2019-04-28] MEDS: NYSTATIN 100,000 UNITS/GM TOPICAL PWD 15 GM TOP SCH (21:01)
[2019-04-28] MEDS: THERAPEUTIC BATH LOTION 240 ML BTL TOP SCH (21:01)
[2019-04-28 22:21] VITALS: BP 120/61
[2019-04-29 06:00] VITALS: BP 133/87
[2019-04-29 06:48] LABS: BASO # 0.1 10^3/uL (0.0-0.2); BASO % 0.9 % (0.0-1.0); EOS # 0.2 10^3/uL (0.0-0.5); EOS % 3.2 % (0.0-3.0); HEMATOCRIT 38.8 % (42.0-52.0); HEMOGLOBIN 12.5 g/dl (13.5-17.5); LYMPH # 1.3 10^3/uL (1.5-5.0); LYMPH % 24.2 % (24.0-44.0); MEAN CORPUSCULAR HEMOGLOBIN 31.6 pg (27.0-33.0); MEAN CORPUSCULAR HGB CONC 32.2 g/dl (32.0-36.5); MONO # 0.4 10^3/uL (0.0-0.8); MONO % 7.2 % (0.0-5.0); NEUTROPHILS # 3.4 10^3/uL (1.5-8.5); NEUTROPHILS % 63.9 % (36.0-66.0); PLATELET COUNT, AUTOMATED 200 10^3/uL (150-450); RED BLOOD COUNT 3.96 10^6/uL (4.30-6.10); WHITE BLOOD COUNT 5.3 10^3/uL (4.0-10.0)
[2019-04-29 07:22] LABS: ALBUMIN 2.2 GM/DL (3.2-5.2); ALT/SGPT 16 U/L (12-78); BILIRUBIN,TOTAL 0.5 MG/DL (0.2-1.0); BLOOD UREA NITROGEN 21 MG/DL (7-18); CALCIUM LEVEL 8.6 MG/DL (8.8-10.2); CARBON DIOXIDE LEVEL 32 MEQ/L (21-32); CHLORIDE LEVEL 105 MEQ/L (98-107); CREATININE FOR GFR 1.06 MG/DL (0.70-1.30); GLOMERULAR FILTRATION RATE > 60.0 (>35); GLUCOSE, FASTING 103 MG/DL (70-100); POTASSIUM SERUM 3.9 MEQ/L (3.5-5.1); SODIUM LEVEL 141 MEQ/L (136-145); TOTAL PROTEIN 6.3 GM/DL (6.4-8.2)
[2019-04-29] MEDS: IPRATROPIUM 0.5MG/ALBUTEROL 2.5MG INH SOL UD 3ML (DUONEB)(J7620) NEB SCH ×3 (07:49→19:46)
[2019-04-29] MEDS: HumaLOG INSULIN (NovoLOG) PER UNIT SC SCH ×4 (08:42→20:47)
[2019-04-29] MEDS: atenoloL 50 MG TAB PO SCH (08:43)
[2019-04-29] MEDS: SIMETHICONE 80 MG CHEW TAB PO SCH ×4 (08:43→20:46)
[2019-04-29] MEDS: DOCUSATE SODIUM 100 MG CAP PO SCH ×2 (08:43→20:45)
[2019-04-29] MEDS: PANTOPRAZOLE 40MG TAB (PROTONIX) PO SCH (08:43)
[2019-04-29] MEDS: APIXABAN 5 MG TAB (ELIQUIS) PO SCH ×2 (08:43→20:45)
[2019-04-29] MEDS: MAGNESIUM OXIDE 400 MG TAB (MAG-OX) PO SCH ×2 (08:44→20:49)
[2019-04-29] MEDS: NYSTATIN 100,000 UNITS/GM TOPICAL PWD 15 GM TOP SCH ×2 (08:44→20:48)
[2019-04-29] MEDS: THERAPEUTIC BATH LOTION 240 ML BTL TOP SCH ×3 (08:44→20:48)
[2019-04-29] MEDS: ACETAMINOPHEN 500 MG TAB PO SCH ×3 (08:44→20:47)
[2019-04-29] MEDS: REMEDY PHYTOPLEX Z-GUARD PASTE 113GM TUBE (FROM STOREROOM PRODUCT) TOP SCH ×3 (08:45→20:49)
--- NOTE | 2019-04-29 11:54 | IPNPDOC ---
Date Seen The patient was seen on 04/29/19. Progress Note SUBJECTIVE: 83-year-old male with past medical history of hypertension, rectal cancer status post colectomy and ostomy, diabetes mellitus, COPD and peripheral artery disease, was admitted to the hospital for new onset A. fib with RVR and small cell obstruction, now admitted to acute rehabilitation unit. Patient seen in ARU, resting comfortably in bed, has not worked with physical therapy yet, tolerating diet, stool output, increasing from ostomy, no complacent this time. He denies any shortness of breath, chest pain, nausea, vomiting, abdominal pain or diarrhea. 10 point review of system is negative except for above PHYSICAL EXAMINATION: VITAL SIGNS: Please see below. GENERAL: No distress HEENT: Normocephalic, atraumatic, moist mucous membranes NECK: Supple CARDIOVASCULAR EXAMINATION: Irregularly irregular, tachycardic RESPIRATORY EXAMINATION: Scattered rhonchi, no wheezing ABDOMINAL EXAMINATION: Soft, nontender, nondistended, ostomy with small amount of stool, positive bowel sounds EXTREMITIES: Range of motion intact SKIN: Bilateral lower shimmery venous stasis changes NEUROLOGICAL EXAMINATION: Alert and oriented 3, no focal deficits PSYCHIATRIC EXAMINATION: Calm and cooperative LABORATORY DATA, IMAGING STUDIES, MICROBIOLOGY: Please see below. DVT prophylaxis ordered?: No ASSESSMENT AND PLAN: 83-year-old male with multiple medical comorbidities was admitted to the hospital for new onset A. fib with RVR and small bowel section admitted to acute rehabilitation unit. PROBLEMS: 1. Physical deconditioning: Management as per primary team. 2. Atrial fibrillation: Continue Eliquis 5 mg BID for anticoagulation and atenolol for rate control. Patient is slightly tachycardic, will consider increasing dose or switching to metoprolol. 3. Small bowel obstruction: Status post lysis of adhesions and hernia repair with mesh, oral intake adequate, stool output increasing. DVT prophylaxis: on Eliquis GI prophylaxis: Protonix VS, I&O, 24H, Antonia Vital Signs/I&O Vital Signs Date Time Temp Pulse Resp B/P (MAP) Pulse Ox O2 Delivery O2 Flow Rate FiO2 04/29/19 08:43 104 133/87 04/29/19 06:00 97.3 18 95 Room Air I&O- Last 24 Hours up to 6 AM 04/29/19 06:00 Intake Total 300 ml Output Total 700 ml Balance -400 ml Laboratory Data 24H LABS Laboratory Tests 2 04/28/19 16:25: Bedside Glucose (Misc Panel) 131H 04/28/19 20:04: Bedside Glucose (Misc Panel) 120H 04/29/19 06:15: Immature Granulocyte % (Auto) 0.6, Neutrophils (%) (Auto) 63.9, Lymphocytes (%) (Auto) 24.2, Monocytes (%) (Auto) 7.2H, Eosinophils (%) (Auto) 3.2H, Basophils (%) (Auto) 0.9, Neutrophils # (Auto) 3.4, Lymphocytes # (Auto) 1.3L, Monocytes # (Auto) 0.4, Eosinophils # (Auto) 0.2, Basophils # (Auto) 0.1, Nucleated Red Blood Cells % (auto) 0.0, Anion Gap 4L, Glomerular Filtration Rate > 60.0, Calcium Level 8.6L, Total Bilirubin 0.5, Aspartate Amino Transf (AST/SGOT) 11, Alanine Aminotransferase (ALT/SGPT) 16, Alkaline Phosphatase 66, Total Protein 6.3L, Albumin 2.2L, Albumin/Globulin Ratio 0.54L 04/29/19 11:44: Bedside Glucose (Misc Panel) 141H CBC/BMP Laboratory Tests 04/29/19 06:15 MARK BANKS MD Apr 29, 2019 11:54
[2019-04-29 12:10] VITALS: BP 120/80
[2019-04-29 12:15] VITALS: BP 104/56
[2019-04-29] MEDS: FUROSEMIDE 20 MG TAB PO SCH (12:32)
[2019-04-29 14:00] VITALS: BP 139/92
[2019-04-29] MEDS: TAMSULOSIN 0.4 MG CAP PO SCH (20:45)
[2019-04-29] MEDS: traZODone 25MG PER 1/2 TABLET PO SCH (20:45)
[2019-04-29 22:02] VITALS: BP 160/82
[2019-04-30] MEDS: IPRATROPIUM 0.5MG/ALBUTEROL 2.5MG INH SOL UD 3ML (DUONEB)(J7620) NEB SCH ×3 (07:29→19:50)
[2019-04-30] MEDS: HumaLOG INSULIN (NovoLOG) PER UNIT SC SCH ×4 (07:40→21:00)
[2019-04-30] MEDS: SIMETHICONE 80 MG CHEW TAB PO SCH ×4 (07:41→21:30)
[2019-04-30] MEDS: DOCUSATE SODIUM 100 MG CAP PO SCH ×2 (07:41→21:29)
[2019-04-30] MEDS: MAGNESIUM OXIDE 400 MG TAB (MAG-OX) PO SCH ×2 (07:42→21:30)
[2019-04-30] MEDS: APIXABAN 5 MG TAB (ELIQUIS) PO SCH ×2 (07:42→21:30)
[2019-04-30] MEDS: atenoloL 50 MG TAB PO SCH (07:45)
[2019-04-30] MEDS: FUROSEMIDE 20 MG TAB PO SCH (07:45)
[2019-04-30] MEDS: THERAPEUTIC BATH LOTION 240 ML BTL TOP SCH ×3 (07:47→21:32)
[2019-04-30] MEDS: NYSTATIN 100,000 UNITS/GM TOPICAL PWD 15 GM TOP SCH ×2 (07:47→21:32)
[2019-04-30] MEDS: ACETAMINOPHEN 500 MG TAB PO SCH ×3 (07:48→21:00)
[2019-04-30] MEDS: PANTOPRAZOLE 40MG TAB (PROTONIX) PO SCH (07:51)
[2019-04-30] MEDS: REMEDY PHYTOPLEX Z-GUARD PASTE 113GM TUBE (FROM STOREROOM PRODUCT) TOP SCH ×3 (09:00→21:32)
[2019-04-30 12:02] LABS: BLOOD UREA NITROGEN 20 MG/DL (7-18); CALCIUM LEVEL 8.4 MG/DL (8.8-10.2); CARBON DIOXIDE LEVEL 30 MEQ/L (21-32); CHLORIDE LEVEL 108 MEQ/L (98-107); CREATININE FOR GFR 1.09 MG/DL (0.70-1.30); GLOMERULAR FILTRATION RATE > 60.0 (>35); GLUCOSE, FASTING 121 MG/DL (70-100); POTASSIUM SERUM 4.2 MEQ/L (3.5-5.1); SODIUM LEVEL 141 MEQ/L (136-145)
[2019-04-30 14:00] VITALS: BP 108/69
[2019-04-30 20:00] VITALS: BP 148/73
[2019-04-30] MEDS: traZODone 25MG PER 1/2 TABLET PO SCH (21:30)
[2019-04-30] MEDS: TAMSULOSIN 0.4 MG CAP PO SCH (21:30)
[2019-05-01 06:45] VITALS: BP 134/66
[2019-05-01 07:20] LABS: BASO # 0.1 10^3/uL (0.0-0.2); EOS # 0.2 10^3/uL (0.0-0.5); EOS % 4.7 % (0.0-3.0); HEMATOCRIT 41.2 % (42.0-52.0); HEMOGLOBIN 12.6 g/dl (13.5-17.5); LYMPH # 1.2 10^3/uL (1.5-5.0); LYMPH % 24.5 % (24.0-44.0); MEAN CORPUSCULAR HEMOGLOBIN 30.5 pg (27.0-33.0); MEAN CORPUSCULAR HGB CONC 30.6 g/dl (32.0-36.5); MEAN CORPUSCULAR VOLUME 99.8 fl (80.0-96.0); MONO # 0.4 10^3/uL (0.0-0.8); MONO % 7.8 % (0.0-5.0); NEUTROPHILS % 61.6 % (36.0-66.0); PLATELET COUNT, AUTOMATED 204 10^3/uL (150-450); RED BLOOD COUNT 4.13 10^6/uL (4.30-6.10); WHITE BLOOD COUNT 4.9 10^3/uL (4.0-10.0)
[2019-05-01] MEDS: IPRATROPIUM 0.5MG/ALBUTEROL 2.5MG INH SOL UD 3ML (DUONEB)(J7620) NEB SCH ×3 (07:32→18:24)
[2019-05-01 07:41] LABS: BLOOD UREA NITROGEN 18 MG/DL (7-18); CALCIUM LEVEL 8.3 MG/DL (8.8-10.2); CARBON DIOXIDE LEVEL 32 MEQ/L (21-32); CHLORIDE LEVEL 106 MEQ/L (98-107); CREATININE FOR GFR 1.07 MG/DL (0.70-1.30); GLOMERULAR FILTRATION RATE > 60.0 (>35); GLUCOSE, FASTING 110 MG/DL (70-100); POTASSIUM SERUM 4.1 MEQ/L (3.5-5.1); SODIUM LEVEL 143 MEQ/L (136-145)
[2019-05-01] MEDS: atenoloL 50 MG TAB PO SCH (07:56)
[2019-05-01] MEDS: DOCUSATE SODIUM 100 MG CAP PO SCH ×2 (07:56→19:56)
[2019-05-01] MEDS: HumaLOG INSULIN (NovoLOG) PER UNIT SC SCH ×4 (07:56→19:49)
[2019-05-01] MEDS: ACETAMINOPHEN 500 MG TAB PO SCH ×3 (07:57→19:57)
[2019-05-01] MEDS: PANTOPRAZOLE 40MG TAB (PROTONIX) PO SCH (07:57)
[2019-05-01] MEDS: APIXABAN 5 MG TAB (ELIQUIS) PO SCH ×2 (07:57→19:56)
[2019-05-01] MEDS: FUROSEMIDE 20 MG TAB PO SCH (07:57)
[2019-05-01] MEDS: MAGNESIUM OXIDE 400 MG TAB (MAG-OX) PO SCH ×2 (07:57→19:56)
[2019-05-01] MEDS: SIMETHICONE 80 MG CHEW TAB PO SCH ×4 (07:57→19:56)
[2019-05-01 08:00] VITALS: BP 126/65
[2019-05-01] MEDS: THERAPEUTIC BATH LOTION 240 ML BTL TOP SCH ×3 (08:50→19:57)
[2019-05-01] MEDS: REMEDY PHYTOPLEX Z-GUARD PASTE 113GM TUBE (FROM STOREROOM PRODUCT) TOP SCH ×3 (08:50→19:58)
[2019-05-01] MEDS: NYSTATIN 100,000 UNITS/GM TOPICAL PWD 15 GM TOP SCH ×2 (08:50→19:58)
[2019-05-01 14:00] VITALS: BP 117/81
--- NOTE | 2019-05-01 16:52 | CR ---
DATE OF CONSULTATION: 04/29/2019 REQUESTING PHYSICIAN: Dr. Lea. CONSULTING PHYSICIAN: Dr. Santiago. REASON FOR CONSULTATION: Fluid/diuretic management. HISTORY OF PRESENT ILLNESS: Siddhartha Gore is previously unknown to me. He is an 83-year-old male with a past medical history of hypertension, dyslipidemia, history of rectal carcinoma status post colostomy and abdominoperineal resection, history of urethral stricture, diastolic congestive heart failure, obesity, and other comorbid conditions mentioned below. Patient was recently admitted to [facility] from 04/11/2019 to 04/28/2019 for small bowel obstruction complicated by atrial fibrillation with rapid ventricular response and acute kidney injury. Peak creatinine was 2.9. He received gentle intravenous (IV) fluids. Cardiology optimized his rate-controlling medications and he underwent laparoscopic repair of incarcerated ventral and parastomal hernias with placement of mesh. He was found to be below his functional status and he was discharged to the acute rehabilitation unit on 04/28/2019 and nephrology evaluation was requested for help in the management of his fluid/diuretics. PAST MEDICAL HISTORY: 1. Chronic obstructive pulmonary disease (COPD). 2. Hypertension. 3. Dyslipidemia. 4. Peripheral arterial disease. 5. History of diabetes. 6. Diastolic congestive heart failure. 7. Chronic kidney disease (CKD) stage III. 8. History of alcohol and tobacco abuse in the past. 9. Rectal cancer status post chemotherapy with colostomy. 10. Atrial fibrillation. 11. Obesity. 12. Abdominal hernias. PAST SURGICAL HISTORY: 1. Abdominal perineal resection with right-sided ostomy in 2011. 2. Tonsillectomy. 3. Ostomy. 4. Hernia repair. 5. Cataract surgeries. 6. Pacemaker placement. 7. Central and parastomal hernia repair with mesh. ALLERGIES: No known allergies. FAMILY HISTORY: Family history of malignancy. No family history of renal failure requiring dialysis. SOCIAL HISTORY: He is an ex-smoker. There is past alcohol abuse. There is no reported drug use. HOME MEDICATIONS: Reviewed and include: - allopurinol 100 mg by mouth twice a day - Eliquis 5 mg by mouth twice a day - aspirin 81 mg by mouth daily - atenolol 50 mg by mouth daily - calcium plus vitamin D - Nexium 40 mg by mouth daily - pravastatin 40 mg by mouth at bedtime REVIEW OF SYSTEMS: CONSTITUTIONAL: He denies fevers or chills. EYES: He denies visual changes or tearing. EARS, NOSE AND THROAT (ENT): He denies throat pain, dysphasia or rhinorrhea. CARDIAC: He has a history of diastolic congestive heart failure and peripheral arterial disease. PULMONARY: He denies shortness of breath or cough. GASTROINTESTINAL: He reports colostomy and hernia repairs. He denies nausea or vomiting. GENITOURINARY: He reports frequency of urination. He denies catheter use. MUSCULOSKELETAL: He reports generalized weakness. He denies acute myalgias or arthralgias. NEUROLOGIC: There is neuropathy. He denies seizure or syncope. HEMATOLOGIC: He reports chronic anticoagulant use. He denies easy bruising. SKIN: There is hyperkeratosis and venous stasis changes of the legs. He denies pruritus. PSYCHIATRIC: He denies anxiety or depression. ENDOCRINE: He reports a history of diabetes, no longer on medicine. He denies thyroid problems. VITAL SIGNS: Temperature 98.5, pulse 116, respiratory rate 22, blood pressure 139/92, saturating 96% on room air. GENERAL: Patient is seen sitting in the wheelchair. Elderly male, awake, alert, oriented, interactive, in no apparent distress. Extraocular muscles are intact. Conjunctivae are clear. Heart sounds are irregularly irregular and tachycardiac. There are chronic venous stasis changes of the lower extremities. Lungs were clear to auscultation bilaterally. No crackle rale or rhonchus. Abdomen is mildly tender to palpation and distended. His ostomy is patent. There are healed laparoscopic incisions. EXTREMITIES: There are chronic venous stasis changes of the legs. NEUROLOGIC: Oriented times three. Interactive and conversational. At baseline mentation. LABORATORY DATA: White count 5.3, hemoglobin 12.5, platelet 200. Sodium 141, potassium 3.9, bicarbonate 32, BUN 21, creatinine 1.0. INPATIENT MEDICATIONS: - Tylenol 1 gram three times a day - DuoNebs three times a day - apixaban 5 mg by mouth twice a day - atenolol 50 mg by mouth daily - docusate 200 mg by mouth twice a day - Lasix 20 mg by mouth daily - insulin - magnesium 400 mg by mouth twice a day - oxycodone as needed - Protonix 40 mg by mouth daily - simethicone 120 mg by mouth four times a day - Flomax 0.4 mg by mouth at bedtime - trazodone 25 mg by mouth at bedtime. PROBLEMS: 1. Chronic diastolic congestive heart failure. Volume status appears fairly well compensated. Patient is nonoliguric. He is voiding to the urinal. He is saturating comfortably on room air. Lungs are clear to auscultation. He is on an 1800 mL fluid restriction. At present, would continue current diuretic 20 mg by mouth daily. 2. . Status post acute kidney injury (SONA). He had an acute kidney injury on his recent hospitalization, but renal function has recovered to baseline. Continue low-dose diuretic. Electrolytes are acceptable. Volume status is compensated. 3. Atrial fibrillation with rapid ventricular response. He is anticoagulated with Eliquis. He is still tachycardiac. Heart rate is in the 110s and he is continued on atenolol. Thank you for involving me in the care of Mr. Gore. Nephrology service will follow intermittently.
--- NOTE | 2019-05-01 17:54 | IPN ---
DATE: 05/01/2019 Mr. Gore is seen this morning on his bedside. He is sitting in the chair at the time of my visit. He reports that his colostomy is working very well now. He denies any fever, chills, nausea, vomiting, dyspnea or chest pain. He does have lower extremity edema and has BYRON wraps. PHYSICAL EXAMINATION: Temperature 96.8 degrees Fahrenheit, heart rate 120 per minute and respiratory rate 18 per minute. Blood pressure 124/65 mmHg. Intake and output records from yesterday show a negative fluid balance of only 235 mL. Head is atraumatic. Neck is supple and jugular venous distention (JVD) does not seem to be abnormally elevated while he is sitting upright in the chair. Lungs have slightly diminished breath sounds at bases and heart sounds are tachycardiac. Abdomen soft and nontender and colostomy is functioning. Extremities have no cyanosis or clubbing. Bilateral lower extremities wrapped in BYRON bandages. Neurologically, he is awake, alert and at his baseline mentation. Today's labs show a WBC count 4.9, hemoglobin 12.6 and hematocrit 41.2. Platelets 204. Sodium 143, potassium 4.1, CO2 32, BUN 18 and creatinine 1.07. PROBLEMS: 1. Acute kidney injury superimposed on chronic kidney disease. Kidney function is stable at baseline right now and electrolytes are also stable. We will continue to monitor as needed. 2. Hypervolemia and peripheral edema. His volume status is significantly improved, though he does have some chronic lower extremity edema due to stasis. At present, he is on low-dose oral diuretic with furosemide 20 mg daily. His legs are wrapped in BYRON bandage due to chronic stasis, which is appropriate. 3. Atrial fibrillation with rapid ventricular rate. He does get recurrent atrial fibrillation. At present, he seems reasonably stable and remains on atenolol and Eliquis.
[2019-05-01 19:47] VITALS: BP 119/72
[2019-05-01] MEDS: traZODone 25MG PER 1/2 TABLET PO SCH (19:56)
[2019-05-01] MEDS: TAMSULOSIN 0.4 MG CAP PO SCH (19:56)
[2019-05-02 06:39] VITALS: BP 122/79
[2019-05-02] MEDS: HumaLOG INSULIN (NovoLOG) PER UNIT SC SCH ×4 (07:30→20:00)
[2019-05-02] MEDS: MAGNESIUM OXIDE 400 MG TAB (MAG-OX) PO SCH ×2 (08:17→20:00)
[2019-05-02] MEDS: ACETAMINOPHEN 500 MG TAB PO SCH ×3 (08:18→20:00)
[2019-05-02] MEDS: atenoloL 50 MG TAB PO SCH (08:18)
[2019-05-02] MEDS: FUROSEMIDE 20 MG TAB PO SCH (08:18)
[2019-05-02] MEDS: APIXABAN 5 MG TAB (ELIQUIS) PO SCH ×2 (08:18→20:00)
[2019-05-02] MEDS: SIMETHICONE 80 MG CHEW TAB PO SCH ×4 (08:18→20:00)
[2019-05-02] MEDS: DOCUSATE SODIUM 100 MG CAP PO SCH ×2 (08:18→20:00)
[2019-05-02] MEDS: PANTOPRAZOLE 40MG TAB (PROTONIX) PO SCH (08:18)
[2019-05-02] MEDS: REMEDY PHYTOPLEX Z-GUARD PASTE 113GM TUBE (FROM STOREROOM PRODUCT) TOP SCH ×3 (08:19→20:01)
[2019-05-02] MEDS: NYSTATIN 100,000 UNITS/GM TOPICAL PWD 15 GM TOP SCH ×2 (08:19→20:01)
[2019-05-02] MEDS: THERAPEUTIC BATH LOTION 240 ML BTL TOP SCH ×3 (08:19→20:01)
[2019-05-02] MEDS: IPRATROPIUM 0.5MG/ALBUTEROL 2.5MG INH SOL UD 3ML (DUONEB)(J7620) NEB SCH ×2 (08:40→19:50)
[2019-05-02 14:00] VITALS: BP 136/80
--- NOTE | 2019-05-02 19:32 | IPN ---
DATE: 05/02/2019 Mr. Gore is seen this morning on his bedside. He is resting comfortably in his bed. He has chronic lower extremity edema and has BYRON bandages. He has history of atrial fibrillation with rapid ventricular rate in congestive heart failure. He was admitted with small bowel obstruction and a parastomal hernia with his colostomy. His colostomy is now functioning very well following reduction of hernia. PHYSICAL EXAMINATION: Temperature 97.6 degrees Fahrenheit, heart rate 100 per minute and respiratory rate 18 per minute. Blood pressure 122/79 mmHg and oxygen saturation 96% on room air. Head is atraumatic. Neck is supple and jugular venous distention (JVD) is at least 9-10 cm above sternal angle. Heart sounds irregular in rhythm and lungs with no rales or wheezing. Abdomen soft, protuberant and nontender with colostomy functioning. Extremities with chronic lower extremity edema wrapped in BYRON bandages. Neurologically, he remains at his baseline mentation. The patient did not have any new labs today and his kidney function has been stable with BUN 18 and creatinine 1.07 yesterday. PROBLEMS: 1. Congestive heart failure. His volume status remains slightly decompensated. His Lasix dose is being increased to 40 mg daily and we will continue to monitor. 2. Acute on chronic renal failure. He has baseline mild chronic kidney disease and kidney function has returned back to baseline. At this point, we will need to monitor his electrolytes due to diuresis, but otherwise his kidney function has been stable. 3. Atrial fibrillation with rapid ventricular rate. His ventricular rate is reasonably well controlled with atenolol and he remains on Eliquis for anticoagulation.
[2019-05-02 19:48] VITALS: BP 104/56
[2019-05-02] MEDS: TAMSULOSIN 0.4 MG CAP PO SCH (20:00)
[2019-05-02] MEDS: traZODone 25MG PER 1/2 TABLET PO SCH (20:00)
[2019-05-03 05:52] VITALS: BP 111/65
[2019-05-03 07:32] LABS: ALBUMIN 2.5 GM/DL (3.2-5.2); BLOOD UREA NITROGEN 22 MG/DL (7-18); CALCIUM LEVEL 8.7 MG/DL (8.8-10.2); CARBON DIOXIDE LEVEL 29 MEQ/L (21-32); CHLORIDE LEVEL 107 MEQ/L (98-107); GLOMERULAR FILTRATION RATE > 60.0 (>35); GLUCOSE, FASTING 97 MG/DL (70-100); PHOSPHORUS LEVEL 3.7 MG/DL (2.5-4.9); POTASSIUM SERUM 4.1 MEQ/L (3.5-5.1); SODIUM LEVEL 141 MEQ/L (136-145)
[2019-05-03] MEDS: IPRATROPIUM 0.5MG/ALBUTEROL 2.5MG INH SOL UD 3ML (DUONEB)(J7620) NEB SCH ×3 (07:52→21:47)
[2019-05-03] MEDS: HumaLOG INSULIN (NovoLOG) PER UNIT SC SCH ×4 (08:11→21:00)
[2019-05-03] MEDS: APIXABAN 5 MG TAB (ELIQUIS) PO SCH ×2 (08:13→21:21)
[2019-05-03] MEDS: FUROSEMIDE 40 MG TAB PO SCH (08:13)
[2019-05-03] MEDS: SIMETHICONE 80 MG CHEW TAB PO SCH ×4 (08:14→21:21)
[2019-05-03] MEDS: atenoloL 50 MG TAB PO SCH (08:15)
[2019-05-03] MEDS: MAGNESIUM OXIDE 400 MG TAB (MAG-OX) PO SCH ×2 (08:17→21:22)
[2019-05-03] MEDS: PANTOPRAZOLE 40MG TAB (PROTONIX) PO SCH (08:17)
[2019-05-03] MEDS: ACETAMINOPHEN 500 MG TAB PO SCH ×3 (08:17→21:21)
[2019-05-03] MEDS: THERAPEUTIC BATH LOTION 240 ML BTL TOP SCH ×3 (08:18→21:22)
[2019-05-03] MEDS: NYSTATIN 100,000 UNITS/GM TOPICAL PWD 15 GM TOP SCH ×2 (08:18→21:23)
[2019-05-03] MEDS: DOCUSATE SODIUM 100 MG CAP PO SCH ×2 (08:19→21:22)
[2019-05-03] MEDS: REMEDY PHYTOPLEX Z-GUARD PASTE 113GM TUBE (FROM STOREROOM PRODUCT) TOP SCH ×3 (08:19→21:23)
--- NOTE | 2019-05-03 12:37 | IPN ---
DATE OF VISIT: 05/03/2019 Mr. Gore is seen this morning on his bedside. He is sitting in the chair, working with occupational therapist. He denies any dyspnea, chest pain, nausea or vomiting and reports that his colostomy is functioning well. His LIOR wraps have been opened this morning. On physical exam, temperature 97.8 degrees Fahrenheit, heart rate 70 per minute and respiratory rate 18 per minute. Blood pressure 112/62 mmHg and oxygen saturation 94% on room air. Head is atraumatic. Neck is supple and jugular venous distention (JVD) is not elevated even sitting upright. Heart sounds are irregular in rhythm and lungs sound clear to auscultation. Abdomen is soft and nontender and protuberant. Colostomy is functioning and bowel sounds are present. Extremities have no cyanosis or clubbing. Lower extremities have significant chronic stasis changes with 1+ pedal edema. Neurologically, he is awake, alert and at his baseline mentation. Today's labs show sodium 141, potassium 4.1, CO2 29, BUN 22 and creatinine 1.20. Albumin is 2.5 and calcium 8.7. PROBLEMS: 1. Congestive heart failure and peripheral edema. His volume status is slightly decompensated. Most of his peripheral edema is related to venous stasis and I agree with compression stockings or Lior wraps. His Lasix dose has been increased to 40 mg daily and we will follow and monitor for next few days. 2. Acute and chronic kidney disease. His kidney function remains stable at about baseline. Slight increase in BUN and creatinine is noted. However, he did not receive increased dose of diuretic until this morning. 3. Atrial fibrillation. Ventricular rate is reasonably well-controlled with current medications and no changes are being made today.
--- NOTE | 2019-05-03 12:53 | IPNPDOC ---
PM&R Progress Note DATE OF SERVICE: May 03, 2019 Public Health Social Worker Progress Note Subjective: Patient reports he is good spirits and that his pacemaker incisional site is less sore. REVIEW OF SYSTEMS: The following is a completed review of systems and has been reviewed. Review of systems otherwise unremarkable. PAIN: Patient self reports left chest wall pain with arm movement EYES: No recent vision changes EARS, NOSE, & THROAT: No throat pain, or dysphagia, or rhinorrhea CARDIOVASCULAR: Denies chest pain or palpitations PULMONARY: Denies shortness of breath GASTROINTESTINAL: Denies constipation/diarrhea, +colostomy GENITOURINARY: +weak stream MUSCULOSKELETAL: generalized weakness NEUROLOGICAL:+peripheral polyneuropathy HEMATOLOGICAL: denies easy bruising SKIN:+ hyperkeratotic PSYCHIATRIC: Unremarkable All other review of systems found to be negative. PHYSICAL EXAMINATION: VITAL SIGNS: Please see below. GENERAL: Pleasant and cooperative. No acute distress. HEENT: PERRL. Extraocular movements intact. Clear conjunctiva CARDIOVASCULAR: Regular rate and rhythm. No murmurs, rubs, or gallops pacemaker incision with hernan c/d/i LUNGS: Clear to auscultation bilaterally. No wheezes. No rhonchi ABDOMEN: Mildly tender, mildly distended, no guarding or rebound tenderness. Positive bowel sounds. +horizontal incision NEUROLOGICAL: Alert and oriented times three. Cranial nerves II through XII grossly intact. Sensation grossly intact] EXTREMITIES: 4\5 strength bilateral upper extremities. 4\5 strength right lower extremity. 4/5 strength in left lower extremity. (-) homans (+) pedal pulses SKIN: +venous stasis changes bilat LE with hyperkeratotic skin, sacrum with blanchable erythema ASSESSMENT:83-year-old M with past medical history of chronic diastolic CHF who presents status post SBO with reduction of his parastomal hernia with new onset Afib PLAN: 1. Rehab- PT, OT advance gait training and ADLs, pacemaker precautions, endurance training and energy conservation, strengthen/stretch/maintain ROM all 4 limbs 2. Neuro: no known hx, monitor for delirium 3. cardiac: chronic diastolic CHF with new onset Afib, c/u Atenolol and Eliquis- fluid restrict, daily weights, medicine consulted to assist in management -lasix increased from 20-->40 mg daily -Av-block with sick sinus rhythm, s/p PM placement 04-27-19 -f/u cardiology on d/c 4. Resp: hx of COPD, c/u Duonebs, incentive spirometry, supplemental 02 prn, monitor for infection 5. Renal: ckd with recent amalia, monitor-renal consulted recs appreciated 6. Endo: pmh diet controlled DM with peripheral polyneuropathy contributing to gait and mobility impairment 6. GI: s/p lysis of adhesions on 04-15-19 and reduction of his incarcerated hernia in setting of colostomy -ppx: protonix, bowel meds, simethicone 7. DVT ppx: on eliquis, teds 8. Pain: tylenol 1g tid, oxycodone 2.5 q6h prn 9. : per patient likely BPH c/u Flomax 10. Psych: trazodone for insomnia 11. Dispo: tbd Allergies Coded Allergies: No Known Allergies (Unverified , 07/16/18) Vital Signs Vital Signs Date Time Temp Pulse Resp B/P (MAP) Pulse Ox O2 Delivery O2 Flow Rate FiO2 05/03/19 08:15 70 112/62 05/03/19 05:52 97.8 18 94 Room Air Laboratory Data CBC/BMP Laboratory Tests 05/03/19 06:40 Labs 24H Laboratory Tests 2 05/02/19 16:44: Bedside Glucose (Misc Panel) 132H 05/02/19 19:32: Bedside Glucose (Misc Panel) 195H 05/03/19 05:21: Bedside Glucose (Misc Panel) 108 05/03/19 06:40: Anion Gap 5L, Glomerular Filtration Rate > 60.0, Calcium Level 8.7L, Phosphorus Level 3.7, Albumin 2.5L 05/03/19 11:34: Bedside Glucose (Misc Panel) 90 Current Medications Current Medications Current Medications Medications (Trade) Dose Ordered Sig/Yao Route PRN Reason Start Time Stop Time Status Last Admin Dose Admin Acetaminophen (Tylenol Tab) 1,000 mg TID PO 04/28/19 16:00 05/02/19 20:00 Albuterol/ Ipratropium (Duoneb (Ipr 0.5mg/Alb 2.5mg)) 3 ml RTID NEB 04/28/19 20:00 05/03/19 07:52 Apixaban (Eliquis) 5 mg BID PO 04/28/19 21:00 05/03/19 08:13 Atenolol (Tenormin) 50 mg DAILY PO 04/29/19 09:00 05/03/19 08:15 Dextrose (Dextrose 50%) 25 ml ASDIRECTED PRN IV SEE LABEL COMMENTS 04/28/19 15:15 Docusate Sodium (Colace) 200 mg BID PO 04/28/19 21:00 05/03/19 08:19 Furosemide (Lasix) 20 mg DAILY PO 04/29/19 09:00 05/02/19 17:01 DC 05/02/19 08:18 Furosemide (Lasix) 40 mg DAILY PO 05/03/19 09:00 05/03/19 08:13 Glucagon (Glucagon) 1 mg ASDIRECTED PRN SC SEE LABEL COMMENTS 04/28/19 15:15 Glucose (Glucose) 16 GM ASDIRECTED PRN PO SEE LABEL COMMENTS 04/28/19 15:15 Insulin Human Lispro (HumaLOG INSULIN) SEE PROTOCOL TABLE AC SC 04/28/19 17:30 05/03/19 08:11 Insulin Human Lispro (HumaLOG INSULIN) SEE PROTOCOL TABLE QHS SC 04/28/19 21:00 Magnesium Oxide (Mag-Ox) 400 mg BID PO 04/28/19 21:00 05/03/19 08:17 Multi-Ingredient Lotion (Radha Lotion) 1 dose TID TOP 04/28/19 21:00 05/03/19 08:18 Nystatin (Mycostatin Powder, Nystop) 1 dose BID TOP 04/28/19 21:00 05/03/19 08:18 Oxycodone HCl (Roxicodone, Oxyir) 2.5 mg Q6HP PRN PO PAIN 04/28/19 12:30 Pantoprazole Sodium (Protonix) 40 mg DAILY PO 04/29/19 09:00 05/03/19 08:17 Simethicone (Mylicon) 120 mg QID PO 04/28/19 17:00 05/03/19 08:14 Tamsulosin HCl (Flomax) 0.4 mg QHS PO 04/28/19 21:00 05/02/19 20:00 Trazodone HCl (Desyrel) 25 mg QHS PO 04/28/19 21:00 05/02/19 20:00 NATA VANESSA MD May 03, 2019 12:53
[2019-05-03 14:00] VITALS: BP 104/72
[2019-05-03 20:00] VITALS: BP 138/84
[2019-05-03] MEDS: traZODone 25MG PER 1/2 TABLET PO SCH (21:21)
[2019-05-03] MEDS: TAMSULOSIN 0.4 MG CAP PO SCH (21:22)
[2019-05-04 06:00] VITALS: BP 119/76
[2019-05-04] MEDS: IPRATROPIUM 0.5MG/ALBUTEROL 2.5MG INH SOL UD 3ML (DUONEB)(J7620) NEB SCH ×3 (08:00→19:51)
[2019-05-04] MEDS: DOCUSATE SODIUM 100 MG CAP PO SCH ×2 (08:31→20:22)
[2019-05-04] MEDS: MAGNESIUM OXIDE 400 MG TAB (MAG-OX) PO SCH ×2 (08:31→20:22)
[2019-05-04] MEDS: PANTOPRAZOLE 40MG TAB (PROTONIX) PO SCH (08:31)
[2019-05-04] MEDS: APIXABAN 5 MG TAB (ELIQUIS) PO SCH ×2 (08:32→20:22)
[2019-05-04] MEDS: atenoloL 50 MG TAB PO SCH (08:32)
[2019-05-04] MEDS: SIMETHICONE 80 MG CHEW TAB PO SCH ×4 (08:32→20:22)
[2019-05-04] MEDS: HumaLOG INSULIN (NovoLOG) PER UNIT SC SCH ×4 (08:33→20:23)
[2019-05-04] MEDS: NYSTATIN 100,000 UNITS/GM TOPICAL PWD 15 GM TOP SCH ×2 (08:33→20:23)
[2019-05-04] MEDS: ACETAMINOPHEN 500 MG TAB PO SCH ×3 (08:33→20:22)
[2019-05-04] MEDS: FUROSEMIDE 40 MG TAB PO SCH (08:33)
[2019-05-04] MEDS: THERAPEUTIC BATH LOTION 240 ML BTL TOP SCH ×3 (08:33→20:23)
[2019-05-04] MEDS: REMEDY PHYTOPLEX Z-GUARD PASTE 113GM TUBE (FROM STOREROOM PRODUCT) TOP SCH ×3 (08:34→20:23)
--- NOTE | 2019-05-04 12:43 | IPN ---
DATE: 05/04/2019 Mr. Gore is seen this morning on his bedside. He just finished his physical therapy and returned to his room. He denies any nausea, vomiting, dyspnea or chest pain. His leg edema has improved significantly and continues with Lior wraps. PHYSICAL EXAMINATION: Temperature 97.1 degrees Fahrenheit, heart rate 68 per minute and respiratory rate 18 per minute. Blood pressure 119/76 mmHg and oxygen saturation 94% on room air. Head is atraumatic. Neck veins are mildly distended while sitting upright. His heart sounds are irregular in rhythm and lungs sound clear to auscultation. Abdomen is soft and protuberant. There is no tenderness and bowel sounds are functioning. His colostomy is functioning. Extremities have no cyanosis or clubbing. Pedal edema is still 1+. Neurologically he is at his baseline mentation. The patient did not have any new labs done today and his chemistry from yesterday showed a BUN of 22 and creatinine 1.20. PROBLEM: 1. Hypervolemia and peripheral edema. The patient is tolerating increased dose of furosemide 40 mg daily. His leg edema is slightly improved. We will continue with the same and recheck his kidney function and electrolytes tomorrow. 2. Acute on chronic kidney disease: The patient has slight fluctuations in his BUN, creatinine but overall kidney function has been stable. 3. Atrial fibrillation: Ventricular rate is very well controlled and he remains on his beta terri and anticoagulation. From a renal standpoint, the patient is doing well and we will recheck his renal profile tomorrow in view of recent increased in the dose of diuretic.
[2019-05-04 14:00] VITALS: BP 134/75
[2019-05-04 20:00] VITALS: BP 132/71
[2019-05-04] MEDS: traZODone 25MG PER 1/2 TABLET PO SCH (20:22)
[2019-05-04] MEDS: TAMSULOSIN 0.4 MG CAP PO SCH (20:22)
[2019-05-05 06:22] VITALS: BP 120/67
[2019-05-05] MEDS: APIXABAN 5 MG TAB (ELIQUIS) PO SCH ×2 (07:37→20:14)
[2019-05-05] MEDS: FUROSEMIDE 40 MG TAB PO SCH (07:37)
[2019-05-05] MEDS: DOCUSATE SODIUM 100 MG CAP PO SCH ×2 (07:37→20:14)
[2019-05-05] MEDS: MAGNESIUM OXIDE 400 MG TAB (MAG-OX) PO SCH ×2 (07:37→20:14)
[2019-05-05] MEDS: HumaLOG INSULIN (NovoLOG) PER UNIT SC SCH (07:37)
[2019-05-05] MEDS: ACETAMINOPHEN 500 MG TAB PO SCH ×3 (07:38→20:15)
[2019-05-05] MEDS: PANTOPRAZOLE 40MG TAB (PROTONIX) PO SCH (07:38)
[2019-05-05] MEDS: atenoloL 50 MG TAB PO SCH (07:38)
[2019-05-05] MEDS: SIMETHICONE 80 MG CHEW TAB PO SCH ×4 (07:38→20:14)
[2019-05-05] MEDS: NYSTATIN 100,000 UNITS/GM TOPICAL PWD 15 GM TOP SCH ×2 (07:39→20:16)
[2019-05-05] MEDS: THERAPEUTIC BATH LOTION 240 ML BTL TOP SCH ×3 (07:39→20:15)
[2019-05-05] MEDS: REMEDY PHYTOPLEX Z-GUARD PASTE 113GM TUBE (FROM STOREROOM PRODUCT) TOP SCH ×3 (07:39→20:15)
[2019-05-05 07:54] LABS: BLOOD UREA NITROGEN 24 MG/DL (7-18); CALCIUM LEVEL 8.4 MG/DL (8.8-10.2); CARBON DIOXIDE LEVEL 30 MEQ/L (21-32); CHLORIDE LEVEL 106 MEQ/L (98-107); CREATININE FOR GFR 1.21 MG/DL (0.70-1.30); GLOMERULAR FILTRATION RATE > 60.0 (>35); GLUCOSE, FASTING 122 MG/DL (70-100); POTASSIUM SERUM 3.9 MEQ/L (3.5-5.1); SODIUM LEVEL 142 MEQ/L (136-145)
[2019-05-05] MEDS: IPRATROPIUM 0.5MG/ALBUTEROL 2.5MG INH SOL UD 3ML (DUONEB)(J7620) NEB SCH ×2 (08:00→13:55)
[2019-05-05] MEDS ORDERED: MAALOX 30 ML SUSP *UDC PO ONE (13:45)
[2019-05-05 14:00] VITALS: BP 129/70
--- NOTE | 2019-05-05 14:19 | IPNPDOC ---
PM&R Progress Note DATE OF SERVICE: May 04, 2019 Budget Counselor Progress Note Subjective: Patient reports he feels good, reports his cough is worse with the nebulizer treatments and would like to discontinue them. REVIEW OF SYSTEMS: The following is a completed review of systems and has been reviewed. Review of systems otherwise unremarkable. PAIN: Patient self reports left chest wall pain with arm movement EYES: No recent vision changes EARS, NOSE, & THROAT: No throat pain, or dysphagia, or rhinorrhea CARDIOVASCULAR: Denies chest pain or palpitations PULMONARY: Denies shortness of breath GASTROINTESTINAL: Denies constipation/diarrhea, +colostomy GENITOURINARY: +weak stream MUSCULOSKELETAL: generalized weakness NEUROLOGICAL:+peripheral polyneuropathy HEMATOLOGICAL: denies easy bruising SKIN:+ hyperkeratotic PSYCHIATRIC: Unremarkable All other review of systems found to be negative. PHYSICAL EXAMINATION: VITAL SIGNS: Please see below. GENERAL: Pleasant and cooperative. No acute distress. HEENT: PERRL. Extraocular movements intact. Clear conjunctiva CARDIOVASCULAR: Regular rate and rhythm. No murmurs, rubs, or gallops pacemaker incision with hernan c/d/i LUNGS: Clear to auscultation bilaterally. No wheezes. No rhonchi ABDOMEN: Mildly tender, mildly distended, no guarding or rebound tenderness. Positive bowel sounds. +horizontal incision NEUROLOGICAL: Alert and oriented times three. Cranial nerves II through XII grossly intact. Sensation grossly intact] EXTREMITIES: 4\5 strength bilateral upper extremities. 4\5 strength right lower extremity. 4/5 strength in left lower extremity. (-) homans (+) pedal pulses SKIN: +venous stasis changes bilat LE with hyperkeratotic skin, sacrum with blanchable erythema ASSESSMENT:83-year-old M with past medical history of chronic diastolic CHF who presents status post SBO with reduction of his parastomal hernia with new onset Afib PLAN: 1. Rehab- PT, OT advance gait training and ADLs, pacemaker precautions, endurance training and energy conservation, strengthen/stretch/maintain ROM all 4 limbs 2. Neuro: no known hx, monitor for delirium 3. cardiac: chronic diastolic CHF with new onset Afib, c/u Atenolol and Eliquis- fluid restrict, daily weights, medicine consulted to assist in management -lasix increased from 20-->40 mg daily -Av-block with sick sinus rhythm, s/p PM placement 04-27-19 -f/u cardiology on d/c 4. Resp: hx of COPD, d/c Duonebs, incentive spirometry, supplemental 02 prn, monitor for infection 5. Renal: ckd with recent amalia, monitor-renal consulted recs appreciated 6. Endo: pmh diet controlled DM with peripheral polyneuropathy contributing to gait and mobility impairment- will change FS to BID and d/c ISS 6. GI: s/p lysis of adhesions on 04-15-19 and reduction of his incarcerated hernia in setting of colostomy -ppx: protonix, bowel meds, simethicone 7. DVT ppx: on eliquis, teds 8. Pain: tylenol 1g tid, oxycodone 2.5 q6h prn 9. : per patient likely BPH c/u Flomax 10. Psych: trazodone for insomnia 11. Dispo: tbd Allergies Coded Allergies: No Known Allergies (Unverified , 07/16/18) Vital Signs Vital Signs Date Time Temp Pulse Resp B/P (MAP) Pulse Ox O2 Delivery O2 Flow Rate FiO2 05/05/19 07:38 96 120/67 05/05/19 06:22 97.8 18 94 Room Air Laboratory Data CBC/BMP Laboratory Tests 05/05/19 07:19 Labs 24H Laboratory Tests 2 05/04/19 16:31: Bedside Glucose (Misc Panel) 114H 05/04/19 20:15: Bedside Glucose (Misc Panel) 93 05/05/19 05:33: Bedside Glucose (Misc Panel) 106 05/05/19 07:19: Anion Gap 6L, Glomerular Filtration Rate > 60.0, Calcium Level 8.4L Current Medications Current Medications Current Medications Medications (Trade) Dose Ordered Sig/Yao Route PRN Reason Start Time Stop Time Status Last Admin Dose Admin Acetaminophen (Tylenol Tab) 1,000 mg TID PO 04/28/19 16:00 05/04/19 20:22 Albuterol/ Ipratropium (Duoneb (Ipr 0.5mg/Alb 2.5mg)) 3 ml RTID NEB 04/28/19 20:00 05/03/19 21:47 Apixaban (Eliquis) 5 mg BID PO 04/28/19 21:00 05/05/19 07:37 Atenolol (Tenormin) 50 mg DAILY PO 04/29/19 09:00 05/05/19 07:38 Dextrose (Dextrose 50%) 25 ml ASDIRECTED PRN IV SEE LABEL COMMENTS 04/28/19 15:15 Docusate Sodium (Colace) 200 mg BID PO 04/28/19 21:00 05/05/19 07:37 Furosemide (Lasix) 20 mg DAILY PO 04/29/19 09:00 05/02/19 17:01 DC 05/02/19 08:18 Furosemide (Lasix) 40 mg DAILY PO 05/03/19 09:00 05/05/19 07:37 Glucagon (Glucagon) 1 mg ASDIRECTED PRN SC SEE LABEL COMMENTS 04/28/19 15:15 Glucose (Glucose) 16 GM ASDIRECTED PRN PO SEE LABEL COMMENTS 04/28/19 15:15 Insulin Human Lispro (HumaLOG INSULIN) SEE PROTOCOL TABLE AC SC 04/28/19 17:30 05/05/19 09:47 DC 05/05/19 07:37 Insulin Human Lispro (HumaLOG INSULIN) SEE PROTOCOL TABLE QHS SC 04/28/19 21:00 05/05/19 09:47 DC Magnesium Oxide (Mag-Ox) 400 mg BID PO 04/28/19 21:00 05/05/19 07:37 Multi-Ingredient Lotion (Radha Lotion) 1 dose TID TOP 04/28/19 21:00 05/05/19 07:39 Nystatin (Mycostatin Powder, Nystop) 1 dose BID TOP 04/28/19 21:00 05/05/19 07:39 Oxycodone HCl (Roxicodone, Oxyir) 2.5 mg Q6HP PRN PO PAIN 04/28/19 12:30 05/03/19 12:54 DC Pantoprazole Sodium (Protonix) 40 mg DAILY PO 04/29/19 09:00 05/05/19 07:38 Simethicone (Mylicon) 120 mg QID PO 04/28/19 17:00 05/05/19 11:54 Tamsulosin HCl (Flomax) 0.4 mg QHS PO 04/28/19 21:00 05/04/19 20:22 Trazodone HCl (Desyrel) 25 mg QHS PO 04/28/19 21:00 05/04/19 20:22 NATA VANESSA MD May 05, 2019 14:19
--- NOTE | 2019-05-05 14:20 | IPNPDOC ---
PM&R Progress Note DATE OF SERVICE: May 05, 2019 Parking Lot Supervisor Progress Note Subjective: Patient reports his cough is better, he feels he is breathing well and eager to go home to his . REVIEW OF SYSTEMS: The following is a completed review of systems and has been reviewed. Review of systems otherwise unremarkable. PAIN: Patient self reports left chest wall pain with arm movement EYES: No recent vision changes EARS, NOSE, & THROAT: No throat pain, or dysphagia, or rhinorrhea CARDIOVASCULAR: Denies chest pain or palpitations PULMONARY: Denies shortness of breath GASTROINTESTINAL: Denies constipation/diarrhea, +colostomy GENITOURINARY: +weak stream MUSCULOSKELETAL: generalized weakness NEUROLOGICAL:+peripheral polyneuropathy HEMATOLOGICAL: denies easy bruising SKIN:+ hyperkeratotic PSYCHIATRIC: Unremarkable All other review of systems found to be negative. PHYSICAL EXAMINATION: VITAL SIGNS: Please see below. GENERAL: Pleasant and cooperative. No acute distress. HEENT: PERRL. Extraocular movements intact. Clear conjunctiva CARDIOVASCULAR: Regular rate and rhythm. No murmurs, rubs, or gallops pacemaker incision with hernan c/d/i LUNGS: Clear to auscultation bilaterally. No wheezes. No rhonchi ABDOMEN: Mildly tender, mildly distended, no guarding or rebound tenderness. Positive bowel sounds. +horizontal incision +colostomy NEUROLOGICAL: Alert and oriented times three. Cranial nerves II through XII grossly intact. Sensation grossly intact] EXTREMITIES: 4\5 strength bilateral upper extremities. 4\5 strength right lower extremity. 4/5 strength in left lower extremity. (-) homans (+) pedal pulses SKIN: +venous stasis changes bilat LE with hyperkeratotic skin, sacrum with blanchable erythema ASSESSMENT:83-year-old M with past medical history of chronic diastolic CHF who presents status post SBO with reduction of his parastomal hernia with new onset Afib PLAN: 1. Rehab- PT, OT advance gait training and ADLs, pacemaker precautions, endurance training and energy conservation, strengthen/stretch/maintain ROM all 4 limbs 2. Neuro: no known hx, monitor for delirium 3. cardiac: chronic diastolic CHF with new onset Afib, c/u Atenolol and Eliquis- fluid restrict, daily weights, medicine consulted to assist in management -lasix increased from 20-->40 mg daily -Av-block with sick sinus rhythm, s/p PM placement 04-27-19 -f/u cardiology on d/c 4. Resp: hx of COPD, d/c Duonebs, incentive spirometry, supplemental 02 prn, monitor for infection 5. Renal: ckd with recent amalia, monitor-renal consulted recs appreciated 6. Endo: pmh diet controlled DM with peripheral polyneuropathy contributing to gait and mobility impairment- will change FS to BID and d/c ISS 6. GI: s/p lysis of adhesions on 04-15-19 and reduction of his incarcerated hernia in setting of colostomy -ppx: protonix, bowel meds, simethicone -Maalox ordered once today for indigestion with resolution of symptoms 7. DVT ppx: on eliquis, teds 8. Pain: tylenol 1g tid, oxycodone d/c'd as not taking it 9. : per patient likely BPH c/u Flomax 10. Psych: trazodone for insomnia 11. Dispo: tbd Allergies Coded Allergies: No Known Allergies (Unverified , 07/16/18) Vital Signs Vital Signs Date Time Temp Pulse Resp B/P (MAP) Pulse Ox O2 Delivery O2 Flow Rate FiO2 05/05/19 07:38 96 120/67 05/05/19 06:22 97.8 18 94 Room Air Laboratory Data CBC/BMP Laboratory Tests 05/05/19 07:19 Labs 24H Laboratory Tests 2 05/04/19 16:31: Bedside Glucose (Misc Panel) 114H 05/04/19 20:15: Bedside Glucose (Misc Panel) 93 05/05/19 05:33: Bedside Glucose (Misc Panel) 106 05/05/19 07:19: Anion Gap 6L, Glomerular Filtration Rate > 60.0, Calcium Level 8.4L Current Medications Current Medications Current Medications Medications (Trade) Dose Ordered Sig/Yao Route PRN Reason Start Time Stop Time Status Last Admin Dose Admin Acetaminophen (Tylenol Tab) 1,000 mg TID PO 04/28/19 16:00 05/04/19 20:22 Albuterol/ Ipratropium (Duoneb (Ipr 0.5mg/Alb 2.5mg)) 3 ml RTID NEB 04/28/19 20:00 05/03/19 21:47 Apixaban (Eliquis) 5 mg BID PO 04/28/19 21:00 05/05/19 07:37 Atenolol (Tenormin) 50 mg DAILY PO 04/29/19 09:00 05/05/19 07:38 Dextrose (Dextrose 50%) 25 ml ASDIRECTED PRN IV SEE LABEL COMMENTS 04/28/19 15:15 Docusate Sodium (Colace) 200 mg BID PO 04/28/19 21:00 05/05/19 07:37 Furosemide (Lasix) 20 mg DAILY PO 04/29/19 09:00 05/02/19 17:01 DC 05/02/19 08:18 Furosemide (Lasix) 40 mg DAILY PO 05/03/19 09:00 05/05/19 07:37 Glucagon (Glucagon) 1 mg ASDIRECTED PRN SC SEE LABEL COMMENTS 04/28/19 15:15 Glucose (Glucose) 16 GM ASDIRECTED PRN PO SEE LABEL COMMENTS 04/28/19 15:15 Insulin Human Lispro (HumaLOG INSULIN) SEE PROTOCOL TABLE AC SC 04/28/19 17:30 05/05/19 09:47 DC 05/05/19 07:37 Insulin Human Lispro (HumaLOG INSULIN) SEE PROTOCOL TABLE QHS SC 04/28/19 21:00 05/05/19 09:47 DC Magnesium Oxide (Mag-Ox) 400 mg BID PO 04/28/19 21:00 05/05/19 07:37 Multi-Ingredient Lotion (Radha Lotion) 1 dose TID TOP 04/28/19 21:00 05/05/19 07:39 Nystatin (Mycostatin Powder, Nystop) 1 dose BID TOP 04/28/19 21:00 05/05/19 07:39 Oxycodone HCl (Roxicodone, Oxyir) 2.5 mg Q6HP PRN PO PAIN 04/28/19 12:30 05/03/19 12:54 DC Pantoprazole Sodium (Protonix) 40 mg DAILY PO 04/29/19 09:00 05/05/19 07:38 Simethicone (Mylicon) 120 mg QID PO 04/28/19 17:00 05/05/19 11:54 Tamsulosin HCl (Flomax) 0.4 mg QHS PO 04/28/19 21:00 05/04/19 20:22 Trazodone HCl (Desyrel) 25 mg QHS PO 04/28/19 21:00 05/04/19 20:22 NATA VANESSA MD May 05, 2019 14:20
[2019-05-05 20:00] VITALS: BP 113/64
[2019-05-05] MEDS: TAMSULOSIN 0.4 MG CAP PO SCH (20:14)
[2019-05-05] MEDS: traZODone 25MG PER 1/2 TABLET PO SCH (20:14)
--- NOTE | 2019-05-05 21:54 | IPN ---
DATE: 05/05/2019 Mr. Gore is seen this morning on his bedside. He is feeling well and sitting in the wheelchair at present after his physical therapy. He denies any dyspnea, chest pain, nausea or vomiting. His colostomy is working well and he reports good appetite. PHYSICAL EXAMINATION: Temperature 97.8 degrees Fahrenheit, heart rate 74 per minute and respiratory rate 18 per minute. Blood pressure 120/67 mmHg and oxygen saturation 94% on room air. Head is atraumatic. No oral thrush or ulcers noted. Neck is supple and JVD is only mildly elevated. Heart sounds are irregular in rhythm and lungs sound clear to auscultation. Abdomen soft and nontender. Bowel sounds are present and colostomy is functioning. Extremities have no cyanosis or clubbing. Pedal edema is only a trace to 1+. Neurologically he is awake, alert and oriented times three. Today's labs show sodium 142, potassium 3.9, CO2 of 30, BUN 24 and creatinine 1.21. PROBLEMS: 1. Congestive heart failure. Volume status seems reasonably well-compensated. His Lasix dose has been increased to 40 mg daily and he is tolerating it well without any change in kidney function. 2. Atrial fibrillation. Ventricular rate is reasonably well-controlled on current medications and no changes are being made today. 3. Acute on chronic kidney disease. No change in kidney function over last 24 hours. Electrolytes are stable. All in all, from a renal standpoint Mr. Gore is doing very well.
[2019-05-06 06:00] VITALS: BP 120/83
[2019-05-06 07:02] LABS: BASO % 0.8 % (0.0-1.0); EOS # 0.3 10^3/uL (0.0-0.5); EOS % 5.9 % (0.0-3.0); HEMATOCRIT 41.5 % (42.0-52.0); HEMOGLOBIN 12.4 g/dl (13.5-17.5); LYMPH # 1.2 10^3/uL (1.5-5.0); LYMPH % 23.4 % (24.0-44.0); MEAN CORPUSCULAR HEMOGLOBIN 29.9 pg (27.0-33.0); MEAN CORPUSCULAR HGB CONC 29.9 g/dl (32.0-36.5); MONO # 0.4 10^3/uL (0.0-0.8); MONO % 8.7 % (0.0-5.0); PLATELET COUNT, AUTOMATED 148 10^3/uL (150-450); RED BLOOD COUNT 4.15 10^6/uL (4.30-6.10); WHITE BLOOD COUNT 4.9 10^3/uL (4.0-10.0)
[2019-05-06 07:26] LABS: BLOOD UREA NITROGEN 25 MG/DL (7-18); CALCIUM LEVEL 8.4 MG/DL (8.8-10.2); CARBON DIOXIDE LEVEL 33 MEQ/L (21-32); CHLORIDE LEVEL 105 MEQ/L (98-107); GLOMERULAR FILTRATION RATE > 60.0 (>35); GLUCOSE, FASTING 104 MG/DL (70-100); POTASSIUM SERUM 3.9 MEQ/L (3.5-5.1); SODIUM LEVEL 142 MEQ/L (136-145)
[2019-05-06] MEDS: APIXABAN 5 MG TAB (ELIQUIS) PO SCH ×2 (09:54→21:03)
[2019-05-06] MEDS: DOCUSATE SODIUM 100 MG CAP PO SCH ×2 (09:54→21:03)
[2019-05-06] MEDS: SIMETHICONE 80 MG CHEW TAB PO SCH ×4 (09:54→21:03)
[2019-05-06] MEDS: ACETAMINOPHEN 500 MG TAB PO SCH ×3 (09:54→21:00)
[2019-05-06] MEDS: THERAPEUTIC BATH LOTION 240 ML BTL TOP SCH ×3 (09:55→21:04)
[2019-05-06] MEDS: NYSTATIN 100,000 UNITS/GM TOPICAL PWD 15 GM TOP SCH ×2 (09:55→21:04)
[2019-05-06] MEDS: PANTOPRAZOLE 40MG TAB (PROTONIX) PO SCH (09:55)
[2019-05-06] MEDS: atenoloL 50 MG TAB PO SCH (09:55)
[2019-05-06] MEDS: FUROSEMIDE 40 MG TAB PO SCH (09:55)
[2019-05-06] MEDS: MAGNESIUM OXIDE 400 MG TAB (MAG-OX) PO SCH ×2 (09:59→21:03)
[2019-05-06] MEDS: REMEDY PHYTOPLEX Z-GUARD PASTE 113GM TUBE (FROM STOREROOM PRODUCT) TOP SCH ×3 (10:00→21:04)
--- NOTE | 2019-05-06 11:14 | IPN ---
DATE OF VISIT: 05/06/2019 Mr. Gore is seen this morning on his bedside. He is sitting in the chair and feels well. He has no dyspnea, chest pain, nausea or vomiting. He is anticipating going home tomorrow. PHYSICAL EXAMINATION: Temperature 97.4 degrees Fahrenheit, heart rate 84 per minute and respiratory rate 18 per minute. Blood pressure 120/83 mmHg and oxygen saturation 94% on room air. His head is atraumatic. Neck supple and jugular venous distention (JVD) just above sternal angle sitting upright. Lungs are slightly diminished, breath sounds at bases. Heart sounds are regular and pacemaker is in place. Abdomen obese, soft and nontender. Colostomy is functioning. Extremities without any cyanosis or clubbing. He does have chronic pedal edema and both legs are wrapped in BYRON bandage. Today's labs show WBC count 4.9, hemoglobin 12.4 and hematocrit 41.5. Platelets 148. Sodium 142, potassium 3.9, CO2 33, BUN 25 and creatinine 1.1. PROBLEMS: 1. Congestive heart failure/peripheral edema. He did have some chronic stasis and congestive heart failure related to rapid atrial fibrillation. His volume status is well-compensated now and remains on furosemide 40 mg daily which should be continued. 2. Acute on chronic kidney disease. His kidney function has also remained stable mostly with creatinine between 1.0 and 1.2 mg/dL. No changes are being made today. 3. Anemia. He has mild stable anemia for which no intervention is indicated. 4. Atrial fibrillation with rapid ventricular rate, status post pacemaker placement. His ventricular rate is well controlled now and volume status well-compensated. The patient has been on low-dose beta terri therapy along with diuretic. From renal standpoint, the patient is doing very well and I am signing off his case. He will followup with his primary care physician after discharge.
[2019-05-06 14:00] VITALS: BP 94/56
[2019-05-06 21:00] VITALS: BP 117/71
[2019-05-06] MEDS: traZODone 25MG PER 1/2 TABLET PO SCH (21:03)
[2019-05-06] MEDS: TAMSULOSIN 0.4 MG CAP PO SCH (21:03)
[2019-05-07 06:00] VITALS: BP 138/80
[2019-05-07] MEDS: APIXABAN 5 MG TAB (ELIQUIS) PO SCH ×2 (08:37→21:29)
[2019-05-07] MEDS: DOCUSATE SODIUM 100 MG CAP PO SCH ×2 (08:37→21:29)
[2019-05-07] MEDS: PANTOPRAZOLE 40MG TAB (PROTONIX) PO SCH (08:37)
[2019-05-07] MEDS: atenoloL 50 MG TAB PO SCH (08:37)
[2019-05-07] MEDS: SIMETHICONE 80 MG CHEW TAB PO SCH ×4 (08:38→21:30)
[2019-05-07] MEDS: MAGNESIUM OXIDE 400 MG TAB (MAG-OX) PO SCH ×2 (08:38→21:29)
[2019-05-07] MEDS: ACETAMINOPHEN 500 MG TAB PO SCH ×3 (08:38→21:31)
[2019-05-07] MEDS: FUROSEMIDE 40 MG TAB PO SCH (08:38)
[2019-05-07] MEDS: NYSTATIN 100,000 UNITS/GM TOPICAL PWD 15 GM TOP SCH ×2 (08:39→21:31)
[2019-05-07] MEDS: REMEDY PHYTOPLEX Z-GUARD PASTE 113GM TUBE (FROM STOREROOM PRODUCT) TOP SCH ×3 (08:39→21:00)
[2019-05-07] MEDS: THERAPEUTIC BATH LOTION 240 ML BTL TOP SCH ×3 (08:39→21:31)
--- NOTE | 2019-05-07 11:35 | IPNPDOC ---
PM&R Progress Note DATE OF SERVICE: May 06, 2019 Employment Coach Progress Note Subjective: Patient reporting he feels well today and is eager to go home tomorrow. He feels comfortable having room privileges. REVIEW OF SYSTEMS: The following is a completed review of systems and has been reviewed. Review of systems otherwise unremarkable. PAIN: Patient self reports left chest wall pain with arm movement EYES: No recent vision changes EARS, NOSE, & THROAT: No throat pain, or dysphagia, or rhinorrhea CARDIOVASCULAR: Denies chest pain or palpitations PULMONARY: Denies shortness of breath GASTROINTESTINAL: Denies constipation/diarrhea, +colostomy GENITOURINARY: +weak stream MUSCULOSKELETAL: generalized weakness NEUROLOGICAL:+peripheral polyneuropathy HEMATOLOGICAL: denies easy bruising SKIN:+ hyperkeratotic PSYCHIATRIC: Unremarkable All other review of systems found to be negative. PHYSICAL EXAMINATION: VITAL SIGNS: Please see below. GENERAL: Pleasant and cooperative. No acute distress. HEENT: PERRL. Extraocular movements intact. Clear conjunctiva CARDIOVASCULAR: Regular rate and rhythm. No murmurs, rubs, or gallops pacemaker incision with hernan c/d/i LUNGS: Clear to auscultation bilaterally. No wheezes. No rhonchi ABDOMEN: Mildly tender, mildly distended, no guarding or rebound tenderness. Positive bowel sounds. +horizontal incision +colostomy NEUROLOGICAL: Alert and oriented times three. Cranial nerves II through XII grossly intact. Sensation grossly intact EXTREMITIES: 4\5 strength bilateral upper extremities. 4\5 strength right lower extremity. 4/5 strength in left lower extremity. (-) homans (+) pedal pulses SKIN: +venous stasis changes bilat LE with hyperkeratotic skin, sacrum with blanchable erythema ASSESSMENT:83-year-old M with past medical history of chronic diastolic CHF who presents status post SBO with reduction of his parastomal hernia with new onset Afib PLAN: 1. Rehab- PT, OT advance gait training and ADLs, pacemaker precautions, endur ance training and energy conservation, strengthen/stretch/maintain ROM all 4 limbs- room privileges 2. Neuro: no known hx, monitor for delirium 3. cardiac: chronic diastolic CHF with new onset Afib, c/u Atenolol and Eliquis- fluid restrict, daily weights, medicine consulted to assist in management -lasix increased from 20-->40 mg daily -Av-block with sick sinus rhythm, s/p PM placement 04-27-19 -f/u cardiology on d/c 4. Resp: hx of COPD, d/c Duonebs, incentive spirometry, supplemental 02 prn, monitor for infection 5. Renal: ckd with recent amalia, monitor-renal consulted recs appreciated 6. Endo: pmh diet controlled DM with peripheral polyneuropathy contributing to gait and mobility impairment- will change FS to BID and d/c ISS 6. GI: s/p lysis of adhesions on 04-15-19 and reduction of his incarcerated hernia in setting of colostomy -ppx: protonix, bowel meds, simethicone -Maalox ordered once on 05-06-19 for indigestion with resolution of symptoms 7. DVT ppx: on eliquis, teds 8. Pain: tylenol 1g tid, oxycodone d/c'd as not taking it 9. : per patient likely BPH c/u Flomax 10. Psych: trazodone for insomnia 11. Dispo: 05-07-19 to home, progressing towards goals Allergies Coded Allergies: No Known Allergies (Unverified , 07/16/18) Vital Signs Vital Signs Date Time Temp Pulse Resp B/P (MAP) Pulse Ox O2 Delivery O2 Flow Rate FiO2 05/07/19 08:37 92 138/80 05/07/19 06:00 97.5 18 93 Room Air Laboratory Data Labs 24H Laboratory Tests 2 05/06/19 16:20: Bedside Glucose (Misc Panel) 102 05/07/19 06:01: Bedside Glucose (Misc Panel) 113H Current Medications Current Medications Current Medications Medications (Trade) Dose Ordered Sig/Yao Route PRN Reason Start Time Stop Time Status Last Admin Dose Admin Acetaminophen (Tylenol Tab) 1,000 mg TID PO 04/28/19 16:00 05/07/19 08:38 Albuterol/ Ipratropium (Duoneb (Ipr 0.5mg/Alb 2.5mg)) 3 ml RTID NEB 04/28/19 20:00 05/05/19 14:21 DC 05/03/19 21:47 Apixaban (Eliquis) 5 mg BID PO 04/28/19 21:00 05/07/19 08:37 Atenolol (Tenormin) 50 mg DAILY PO 04/29/19 09:00 05/07/19 08:37 Dextrose (Dextrose 50%) 25 ml ASDIRECTED PRN IV SEE LABEL COMMENTS 04/28/19 15:15 Docusate Sodium (Colace) 200 mg BID PO 04/28/19 21:00 05/07/19 08:37 Furosemide (Lasix) 20 mg DAILY PO 04/29/19 09:00 05/02/19 17:01 DC 05/02/19 08:18 Furosemide (Lasix) 40 mg DAILY PO 05/03/19 09:00 05/07/19 08:38 Glucagon (Glucagon) 1 mg ASDIRECTED PRN SC SEE LABEL COMMENTS 04/28/19 15:15 Glucose (Glucose) 16 GM ASDIRECTED PRN PO SEE LABEL COMMENTS 04/28/19 15:15 Insulin Human Lispro (HumaLOG INSULIN) SEE PROTOCOL TABLE AC SC 04/28/19 17:30 05/05/19 09:47 DC 05/05/19 07:37 Insulin Human Lispro (HumaLOG INSULIN) SEE PROTOCOL TABLE QHS SC 04/28/19 21:00 05/05/19 09:47 DC Magnesium Oxide (Mag-Ox) 400 mg BID PO 04/28/19 21:00 05/07/19 08:38 Multi-Ingredient Lotion (Radha Lotion) 1 dose TID TOP 04/28/19 21:00 05/07/19 08:39 Nystatin (Mycostatin Powder, Nystop) 1 dose BID TOP 04/28/19 21:00 05/07/19 08:39 Oxycodone HCl (Roxicodone, Oxyir) 2.5 mg Q6HP PRN PO PAIN 04/28/19 12:30 05/03/19 12:54 DC Pantoprazole Sodium (Protonix) 40 mg DAILY PO 04/29/19 09:00 05/07/19 08:37 Simethicone (Mylicon) 120 mg QID PO 04/28/19 17:00 05/07/19 08:38 Tamsulosin HCl (Flomax) 0.4 mg QHS PO 04/28/19 21:00 05/06/19 21:03 Trazodone HCl (Desyrel) 25 mg QHS PO 04/28/19 21:00 05/06/19 21:03 NATA VANESSA MD May 07, 2019 11:34
--- NOTE | 2019-05-07 11:35 | IPNPDOC ---
PM&R Progress Note DATE OF SERVICE: May 07, 2019 Podiatric Assistant Progress Note Subjective: Patient reporting due to weather he will not be able to coordinate transportation until tomorrow. He reports he is in good spirits and eager to go home to be with his . REVIEW OF SYSTEMS: The following is a completed review of systems and has been reviewed. Review of systems otherwise unremarkable. PAIN: Patient self reports left chest wall pain with arm movement EYES: No recent vision changes EARS, NOSE, & THROAT: No throat pain, or dysphagia, or rhinorrhea CARDIOVASCULAR: Denies chest pain or palpitations PULMONARY: Denies shortness of breath GASTROINTESTINAL: Denies constipation/diarrhea, +colostomy GENITOURINARY: +weak stream MUSCULOSKELETAL: generalized weakness NEUROLOGICAL:+peripheral polyneuropathy HEMATOLOGICAL: denies easy bruising SKIN:+ hyperkeratotic PSYCHIATRIC: Unremarkable All other review of systems found to be negative. PHYSICAL EXAMINATION: VITAL SIGNS: Please see below. GENERAL: Pleasant and cooperative. No acute distress. HEENT: PERRL. Extraocular movements intact. Clear conjunctiva CARDIOVASCULAR: Regular rate and rhythm. No murmurs, rubs, or gallops pacemaker incision with hernan c/d/i LUNGS: Clear to auscultation bilaterally. No wheezes. No rhonchi ABDOMEN: Mildly tender, mildly distended, no guarding or rebound tenderness. Positive bowel sounds. +horizontal incision +colostomy NEUROLOGICAL: Alert and oriented times three. Cranial nerves II through XII grossly intact. Sensation grossly intact EXTREMITIES: 4\5 strength bilateral upper extremities. 4\5 strength right lower extremity. 4/5 strength in left lower extremity. (-) homans (+) pedal pulses SKIN: +venous stasis changes bilat LE with hyperkeratotic skin, sacrum with blanchable erythema ASSESSMENT:83-year-old M with past medical history of chronic diastolic CHF who presents status post SBO with reduction of his parastomal hernia with new onset Afib PLAN: 1. Rehab- PT, OT advance gait training and ADLs, pacemaker precautions, endurance training and energy conservation, strengthen/stretch/maintain ROM all 4 limbs- room privileges 2. Neuro: no known hx, monitor for delirium 3. cardiac: chronic diastolic CHF with new onset Afib, c/u Atenolol and Eliquis- fluid restrict, daily weights, medicine consulted to assist in management -lasix increased from 20-->40 mg daily -Av-block with sick sinus rhythm, s/p PM placement 04-27-19 -f/u cardiology on d/c 4. Resp: hx of COPD, d/c Duonebs, incentive spirometry, supplemental 02 prn, monitor for infection 5. Renal: ckd with recent amalia, monitor-renal consulted recs appreciated 6. Endo: pmh diet controlled DM with peripheral polyneuropathy contributing to gait and mobility impairment- will change FS to BID and d/c ISS 6. GI: s/p lysis of adhesions on 04-15-19 and reduction of his incarcerated hernia in setting of colostomy -ppx: protonix, bowel meds, simethicone -Maalox ordered once on 05-06-19 for indigestion with resolution of symptoms 7. DVT ppx: on eliquis, teds 8. Pain: tylenol 1g tid, oxycodone d/c'd as not taking it 9. : per patient likely BPH c/u Flomax 10. Psych: trazodone for insomnia 11. Dispo: 05-08-19 to home, progressing towards goals- will get transport [facility] Allergies Coded Allergies: No Known Allergies (Unverified , 05/20/19) Vital Signs Vital Signs Date Time Temp Pulse Resp B/P (MAP) Pulse Ox O2 Delivery O2 Flow Rate FiO2 05/07/19 08:37 92 138/80 05/07/19 06:00 97.5 18 93 Room Air Laboratory Data Labs 24H Laboratory Tests 2 05/06/19 16:20: Bedside Glucose (Misc Panel) 102 05/07/19 06:01: Bedside Glucose (Misc Panel) 113H Current Medications Current Medications Current Medications Medications (Trade) Dose Ordered Sig/Yao Route PRN Reason Start Time Stop Time Status Last Admin Dose Admin Acetaminophen (Tylenol Tab) 1,000 mg TID PO 04/28/19 16:00 05/07/19 08:38 Albuterol/ Ipratropium (Duoneb (Ipr 0.5mg/Alb 2.5mg)) 3 ml RTID NEB 04/28/19 20:00 05/05/19 14:21 DC 05/03/19 21:47 Apixaban (Eliquis) 5 mg BID PO 04/28/19 21:00 05/07/19 08:37 Atenolol (Tenormin) 50 mg DAILY PO 04/29/19 09:00 05/07/19 08:37 Dextrose (Dextrose 50%) 25 ml ASDIRECTED PRN IV SEE LABEL COMMENTS 04/28/19 15:15 Docusate Sodium (Colace) 200 mg BID PO 04/28/19 21:00 05/07/19 08:37 Furosemide (Lasix) 20 mg DAILY PO 04/29/19 09:00 05/02/19 17:01 DC 05/02/19 08:18 Furosemide (Lasix) 40 mg DAILY PO 05/03/19 09:00 05/07/19 08:38 Glucagon (Glucagon) 1 mg ASDIRECTED PRN SC SEE LABEL COMMENTS 04/28/19 15:15 Glucose (Glucose) 16 GM ASDIRECTED PRN PO SEE LABEL COMMENTS 04/28/19 15:15 Insulin Human Lispro (HumaLOG INSULIN) SEE PROTOCOL TABLE AC SC 04/28/19 17:30 05/05/19 09:47 DC 05/05/19 07:37 Insulin Human Lispro (HumaLOG INSULIN) SEE PROTOCOL TABLE QHS SC 04/28/19 21:00 05/05/19 09:47 DC Magnesium Oxide (Mag-Ox) 400 mg BID PO 04/28/19 21:00 05/07/19 08:38 Multi-Ingredient Lotion (Radha Lotion) 1 dose TID TOP 04/28/19 21:00 05/07/19 08:39 Nystatin (Mycostatin Powder, Nystop) 1 dose BID TOP 04/28/19 21:00 05/07/19 08:39 Oxycodone HCl (Roxicodone, Oxyir) 2.5 mg Q6HP PRN PO PAIN 04/28/19 12:30 05/03/19 12:54 DC Pantoprazole Sodium (Protonix) 40 mg DAILY PO 04/29/19 09:00 05/07/19 08:37 Simethicone (Mylicon) 120 mg QID PO 04/28/19 17:00 05/07/19 08:38 Tamsulosin HCl (Flomax) 0.4 mg QHS PO 04/28/19 21:00 05/06/19 21:03 Trazodone HCl (Desyrel) 25 mg QHS PO 04/28/19 21:00 05/06/19 21:03 NATA VANESSA MD May 07, 2019 11:35
[2019-05-07] MEDS ORDERED: FURO40TA2 PO (13:07)
[2019-05-07] MEDS ORDERED: PRAV40TA2 PO (13:07)
[2019-05-07] MEDS ORDERED: ATEN50TA2 PO (13:07)
[2019-05-07] MEDS ORDERED: ELIQ5TAB PO (13:07)
[2019-05-07] MEDS ORDERED: IPRA0.00 INH (13:07)
[2019-05-07] MEDS ORDERED: FLOM0.4C39 PO (13:07)
[2019-05-07] MEDS ORDERED: NEXI40CA PO (13:07)
[2019-05-07 14:00] VITALS: BP 100/64
[2019-05-07 20:00] VITALS: BP 116/88
[2019-05-07] MEDS: TAMSULOSIN 0.4 MG CAP PO SCH (21:29)
[2019-05-07] MEDS: traZODone 25MG PER 1/2 TABLET PO SCH (21:29)
[2019-05-08 06:00] VITALS: BP 129/79
[2019-05-08] MEDS: FUROSEMIDE 40 MG TAB PO SCH (07:48)
[2019-05-08] MEDS: APIXABAN 5 MG TAB (ELIQUIS) PO SCH (07:48)
[2019-05-08 07:49] VITALS: BP 129/79
[2019-05-08] MEDS: atenoloL 50 MG TAB PO SCH (07:49)
[2019-05-08] MEDS: MAGNESIUM OXIDE 400 MG TAB (MAG-OX) PO SCH (07:49)
[2019-05-08] MEDS: PANTOPRAZOLE 40MG TAB (PROTONIX) PO SCH (07:49)
[2019-05-08] MEDS: SIMETHICONE 80 MG CHEW TAB PO SCH (07:52)
[2019-05-08] MEDS: ACETAMINOPHEN 500 MG TAB PO SCH (07:53)
[2019-05-08] MEDS: DOCUSATE SODIUM 100 MG CAP PO SCH (07:53)
--- NOTE | 2019-05-26 20:21 | PMRDS ---
DATE OF ADMISSION: 04/28/2019 DATE OF DISCHARGE: 05/08/2019 CHIEF COMPLAINT/DISCHARGE DIAGNOSIS: New-onset atrial fibrillation with peripheral polyneuropathy. HISTORY OF PRESENT ILLNESS: 83M pmh DM, COPD, HTN, HLD, PAD, diastolic CHF, CKD3, EOTH and tobacco abuse in the past, rectal cancer s/p chemotherapy with colostomy, admitted to [facility] ED for SBO in setting of parastomal hernia on 04-11-19. NGT was placed and he underwent lysis of adhesions on 04-15-19 and reduction of his incarcerated hernia. He was later evaluated by cardiology for rapid Afib with RVR and elevated cardiac enzymes. cardiology placed him on a short course of digoxin and started him on Atenolol. Later he was noted to have high grade AV block and underwent PM placement on 04-27-19. He also developed acute kidney failure for which renal was consulted and recommended gentle hydration. He was evaluated by therapy and noted to have significant deconditioning requiring assistance in ADLs and mobility well below his prior level of function and deemed medically appropriate for discharge to ARU. Upon initial eval patient reports he has had a weak urinary stream and that his feet are numb and tingling from longstanding DM which he reports is diet controlled. PAST MEDICAL HISTORY: As per history of present illness (HPI). HOSPITAL COURSE: The patient was admitted and enrolled in a comprehensive physical therapy (PT)/occupational therapy (OT) program. He received 24-hour nursing supervision, and weekly team meetings were held to discuss his progress. The patient was followed by renal during his hospital course for acute kidney injury (SONA) in the setting of chronic kidney disease (CKD) and for fluid management. The patient did not complain of any palpitations following his pacemaker placement on 04/27/2019 or abdominal discomfort status post his incarcerated hernia reduction. The patient's pain was well controlled with Tylenol, and his diabetes was controlled primarily with diet. He made significant gains in therapy and was deemed medically and functionally stable to return home. DISCHARGE MEDICATIONS: As per instructions. FUNCTIONAL HISTORY ON DISCHARGE: The patient was modified independent for all functional transfers. Able to ambulate nearly 200 feet with a rolling walker. In occupational therapy he was requiring some assistance with donning and doffing socks in addition to clipping his suspenders; however, the patient reported he had help at home. Thank you for this referral edited: 06/22/2019 0825 reggie GUTIÉRREZ
== END 2019-05-08 08:35 | disposition home health service (06) | DRG 309 ==
LOC: M PM&R 15:45
PROVIDERS: ADMIT Physical Medicine & Rehabilitation; ATTEND Physical Medicine & Rehabilitation
DX: I48.91 Unspecified atrial fibrillation (principal); I13.0 Hypertensive heart and chronic kidney disease with heart failure and stage 1 through stage 4 chronic kidney disease, or unspecified chronic kidney disease; I50.32 Chronic diastolic (congestive) heart failure; K43.6 Other and unspecified ventral hernia with obstruction, without gangrene; E11.42 Type 2 diabetes mellitus with diabetic polyneuropathy; I44.2 Atrioventricular block, complete; J44.9 Chronic obstructive pulmonary disease, unspecified; E11.51 Type 2 diabetes mellitus with diabetic peripheral angiopathy without gangrene; E11.22 Type 2 diabetes mellitus with diabetic chronic kidney disease; N18.3 Chronic kidney disease, stage 3 (moderate); Z85.040 Personal history of malignant carcinoid tumor of rectum; Z95.0 Presence of cardiac pacemaker; R39.12 Poor urinary stream; R53.1 Weakness; Z87.891 Personal history of nicotine dependence; R26.89 Other abnormalities of gait and mobility; N40.1 Benign prostatic hyperplasia with lower urinary tract symptoms; G47.00 Insomnia, unspecified; Z79.01 Long term (current) use of anticoagulants; Z79.82 Long term (current) use of aspirin; Z79.899 Other long term (current) drug therapy; Z93.3 Colostomy status; E78.5 Hyperlipidemia, unspecified; Z92.21 Personal history of antineoplastic chemotherapy

== ENCOUNTER 2019-05-20 21:19 | Inpatient (IN) | payer MEDICARE, OTHER ==
[~2019-05-20] VITALS: Ht 170.2 cm; Wt 114.4 kg
[~2019-05-20 21:19] MED LIST changes: +ATEN50TA2 PO; +ELIQ5TAB PO; +FLOM0.4C39 PO; +FURO40TA2 PO
[2019-05-20 22:30] LABS: BASO % 0.4 % (0.0-1.0); EOS # 0.1 10^3/uL (0.0-0.5); EOS % 1.6 % (0.0-3.0); HEMATOCRIT 35.2 % (42.0-52.0); HEMOGLOBIN 11.4 g/dl (13.5-17.5); LYMPH # 0.5 10^3/uL (1.5-5.0); LYMPH % 7.3 % (24.0-44.0); MEAN CORPUSCULAR HEMOGLOBIN 31.3 pg (27.0-33.0); MEAN CORPUSCULAR HGB CONC 32.4 g/dl (32.0-36.5); MEAN CORPUSCULAR VOLUME 96.7 fl (80.0-96.0); MONO # 0.5 10^3/uL (0.0-0.8); MONO % 7.2 % (0.0-5.0); NEUTROPHILS # 5.8 10^3/uL (1.5-8.5); NEUTROPHILS % 82.9 % (36.0-66.0); PLATELET COUNT, AUTOMATED 181 10^3/uL (150-450); RED BLOOD COUNT 3.64 10^6/uL (4.30-6.10)
[2019-05-20 22:34] LABS: APPEARANCE, URINE TURBID (CLEAR); BACTERIA, URINE AUTO 3+ (NEGATIVE); BILIRUBIN, URINE AUTO NEGATIVE (NEGATIVE); BLOOD, URINE BLOOD 3+ (NEGATIVE); COLOR, URINE AMBER (YELLOW); GLUCOSE, URINE (UA) AUTO NEGATIVE (NEGATIVE); KETONE, URINE AUTO NEGATIVE (NEGATIVE); LEUKOCYTE ESTERASE, URINE AUTO 3+ (NEGATIVE); NITRITE, URINE AUTO POSITIVE (NEGATIVE); PROTEIN, URINE AUTO 2+ mg/dL (NEGATIVE); RBC, URINE AUTO TNTC /HPF (0-3); SPECIFIC GRAVITY URINE AUTO 1.017 (1.002-1.035); SQUAMOUS EPITHELIAL CELL UR AU 2 /HPF (0-6); UROBILINOGEN, URINE AUTO 0.2 mg/dL (0.0-2.0); WBC, URINE AUTO TNTC /HPF (0-3)
[2019-05-20 22:56] LABS: ALBUMIN 2.6 GM/DL (3.2-5.2); BILIRUBIN,DIRECT 0.2 MG/DL (0.0-0.2); BILIRUBIN,TOTAL 0.5 MG/DL (0.2-1.0); CALCIUM LEVEL 8.4 MG/DL (8.8-10.2); CREATININE FOR GFR 1.54 MG/DL (0.70-1.30); GLOMERULAR FILTRATION RATE 46.3 (>35); POTASSIUM SERUM 3.5 MEQ/L (3.5-5.1); TOTAL PROTEIN 6.3 GM/DL (6.4-8.2)
[2019-05-20] MEDS ORDERED: NS 500 ML IV ONE (23:00)
[2019-05-20] MEDS ORDERED: cefTRIAXone SOD 1 GM in D5W MINI-BAG PLUS 50 ML IV ONE (23:30)
[2019-05-21] VITALS (10 sets, daily range): BP systolic 106–134; BP diastolic 59–79
--- NOTE | 2019-05-21 00:10 | REPVR ---
PROCEDURE INFORMATION: Exam: CT Abdomen And Pelvis Without Contrast Exam date and time: 05/20/2019 10:58 PM Age: 83 years old Clinical indication: Abdominal pain; Generalized; Additional info: Hematuria/colic TECHNIQUE: Imaging protocol: Computed tomography of the abdomen and pelvis without contrast. Radiation optimization: All CT scans at this facility use at least one of these dose optimization techniques: automated exposure control; mA and/or kV adjustment per patient size (includes targeted exams where dose is matched to clinical indication); or iterative reconstruction. COMPARISON: CT ABD PELVIS W/O CONTRAST 04/11/2019 1:39 PM FINDINGS: Tubes, catheters and devices: Pacemaker in position. Lungs: Coarse interstitial markings with minimal bibasilar fibro-atelectatic change and minimal infiltrates. Pleural space: Trace bilateral pleural effusions, right greater than left. Heart: The left atrium measures 6.5 cm in its AP dimension. Liver: Question of hepatic cyst in the hepatic dome measuring 12 mm. Gallbladder and bile ducts: Normal. No calcified stones. No ductal dilation. Pancreas: Normal. No ductal dilation. Spleen: Normal. No splenomegaly. Adrenals: Left adrenal nodule measuring 18 mm with a Hounsfield measurement of 2. Kidneys and ureters: Multiple bilateral renal cysts measuring up to 12.2 cm on the right. There is some left renal sinus induration which is asymmetric which continues as some periureteral edema. Stomach and bowel: There is colonic diverticulosis without evidence of diverticulitis. Distal colonic resection with right mid abdominal colostomy at the level of the sigmoid. There is associated surrounding induration and herniation of fat in the area of surgery with minimal fluid collection adjacent to the ostomy site which measures approximately 6.0 x 1.0 x 1.0 cm. Appendix: A normal appendix is seen. Intraperitoneal space: See Stomach And Bowel Finding. Vasculature: There is mild calcification of the abdominal aorta with extension into the iliac arteries. Lymph nodes: Unremarkable. No enlarged lymph nodes. Bladder: Urinary bladder wall thickening with perivesicular induration and a 2.6 cm bladder diverticulum posterior superiorly on the left. Reproductive: Unremarkable as visualized. Bones/joints: Degenerative changes of the lumbar spine. Soft tissues: Unremarkable. IMPRESSION: 1. Resolution of small bowel obstruction since 04/11/2019. 2. Coarse interstitial lung base markings with minimal fibro-atelectatic change and minimal infiltrates with trace bilateral pleural effusions. 3. Hepatomegaly with pacemaker. 4. Left adrenal nodule measuring 18 mm with a Hounsfield measurement of 2. No follow-up is necessary. 5. Urinary bladder wall thickening with perivesicular induration and bladder diverticulum. Findings may reflect cystitis. There is some left renal sinus and periureteral edema which may reflect UTI. 6. Colonic diverticulosis without diverticulitis. There has been distal colonic resection with right mid abdominal colostomy. There is induration and stranding about the area which may reflect surgical revision. There is trace adjacent fluid collection which may reflect seroma which is unchanged from the prior study. Electronically signed by: Francisco Copeland On 05/21/2019 00:09:37 AM
[2019-05-21] MEDS ORDERED: PRAV40TA2 PO (00:41)
[2019-05-21] MEDS ORDERED: FURO40TA2 PO (00:41)
[2019-05-21] MEDS ORDERED: ELIQ5TAB PO (00:41)
[2019-05-21] MEDS ORDERED: IPRA0.00 NEB (00:41)
[2019-05-21] MEDS ORDERED: ATEN50TA2 PO (00:41)
[2019-05-21] MEDS ORDERED: ESOM1CAP5 PO (00:41)
[2019-05-21] MEDS ORDERED: FLOM0.4C39 PO (00:41)
[2019-05-21] MEDS ORDERED: IPRATROPIUM 0.5MG/ALBUTEROL 2.5MG INH SOL UD 3ML (DUONEB)(J7620) NEB PRN (01:00)
[2019-05-21] MEDS ORDERED: GLUCAGON FOR INJ 1 MG VIAL (J1610) SC PRN (01:15)
[2019-05-21] MEDS ORDERED: DEXTROSE 50% 50 ML SYRINGE IV PRN (01:15)
[2019-05-21] MEDS ORDERED: GLUCOSE 4 GM CHEW TABLET PO PRN (01:15)
[2019-05-21] MEDS: HumaLOG INSULIN (NovoLOG) PER UNIT SC SCH ×5 (01:36→20:12)
--- NOTE | 2019-05-21 08:02 | REP ---
Portable chest, 10:41 p.m., single AP view with the patient upright: Comparison is the portable chest dated 10/05/2013. There is chronic diffuse interstitial coarsening, unchanged. There is chronic cardiomegaly, unchanged. There is a single lead pacemaker, as an interval change. The evin, mediastinum, skeletal structures are unremarkable. Impression: Chronic cardiomegaly and chronic interstitial coarsening. There has been interval placement of a pacemaker Electronically Signed by Xavier Mcbride MD 05/21/2019 07:54 A
[2019-05-21] MEDS: APIXABAN 5 MG TAB (ELIQUIS) PO SCH ×2 (08:41→20:19)
[2019-05-21] MEDS: atenoloL 50 MG TAB PO SCH (08:41)
[2019-05-21] MEDS: cefTRIAXone SOD 1 GM in D5W MINI-BAG PLUS 50 ML IV SCH (08:41)
[2019-05-21 08:48] LABS: HEMATOCRIT 36.7 % (42.0-52.0); HEMOGLOBIN 11.6 g/dl (13.5-17.5); MEAN CORPUSCULAR HEMOGLOBIN 30.9 pg (27.0-33.0); MEAN CORPUSCULAR HGB CONC 31.6 g/dl (32.0-36.5); MEAN CORPUSCULAR VOLUME 97.6 fl (80.0-96.0); PLATELET COUNT, AUTOMATED 167 10^3/uL (150-450); RED BLOOD COUNT 3.76 10^6/uL (4.30-6.10); WHITE BLOOD COUNT 6.5 10^3/uL (4.0-10.0)
[2019-05-21 09:08] LABS: CALCIUM LEVEL 8.3 MG/DL (8.8-10.2); CREATININE FOR GFR 1.38 MG/DL (0.70-1.30); GLOMERULAR FILTRATION RATE 52.5 (>35); POTASSIUM SERUM 3.6 MEQ/L (3.5-5.1)
[2019-05-21] MEDS ORDERED: METOPROLOL 5 MG/5 ML VIAL IV STA (14:26)
[2019-05-21] MEDS ORDERED: METOPROLOL 5 MG/5 ML VIAL IV PRN (14:30)
[2019-05-21] MEDS ORDERED: ACETAMINOPHEN TAB 650MG DOSE (2X325MG) PO PRN (14:45)
--- NOTE | 2019-05-21 15:34 | IPNPDOC ---
Subjective Date Seen The patient was seen on 05/21/19. Subjective Chief Complaint/HPI Mr. Gore is an 83 year old male who was admitted overnight due to a UTI. Pt stated he presented to the ED after feeling fevered, chilled and having very painful urination for a couple of days. He reported his urine has been very dark in color. He typically produces very little urine at baseline. He has an appt to establish nephrology care on Friday. Pt seen in the ED this morning. He reported he is not feeling well; he continues to urinate very little today and it is dark in appearance. He continues to suffer from pain when he does urinate. Pt reported he has a long history of urinary issues. The shaft of his penis is very short and so previous attempts to catheterize him have been traumatic; he has had to be catheterized i n the OR as a result. Pt reported he struggles to get even a small amount of urine out. He is very opposed to having a catheter placed due to above. General: Reports: Fatigue, Malaise, Normal Appetite; Denies: Chills, Night Sweats Constitutional: Denies: Chills, Fever, Night Sweats Eyes: Denies: Pain ENT: Denies: Head Aches Skin: Denies: Rash, Breakdown Pulmonary: Denies: Dyspnea, Cough Cardiovascular: Denies: Chest Pain, Palpitations, Orthopnea, Paroxysmal Noc. Dyspnea, Lt Headedness Gastrointestinal: Denies: Nausea, Vomiting, Abdominal Pain, Diarrhea, Constipation Genitourinary: Reports: Dysuria, Frequency, Incontinence, Hematuria, Retention Hematologic: Denies: Bruising Musculoskeletal: Denies: Neck Pain, Back Pain, Joint Pain, Muscle Pain, Spasms Neurological: Denies: Weakness, Numbness, Change in speech, Confusion Psych: Reports: Mood Normal Objective Physical Examination General Exam: Positive: Alert, No Acute Distress Eye Exam: Positive: Conjunctiva & lids normal; Negative: Sclera icteric ENT Exam: Positive: Atraumatic, Pharynx Normal; Negative: Mucous membr. moist/pink (mucus membranes dry ) Neck Exam: Positive: Supple; Negative: thyromegaly Chest Exam: Positive: Clear to auscultation, Normal air movement Heart Exam: Positive: Rate Normal, Regular Rhythm, Normal S1, Normal S2, Murmurs (2/6 SM S1S2 intact ); Negative: Gallops, Rubs Telemetry: Positive: No significant arrhythmia Abdomen Exam: Positive: Normal bowel sounds, Soft; Negative: Tenderness, Hepatospenomegaly Male Exam: Negative: Normal Genital Exam (Testicles inflamed and swollen; Pe nis inflamed; urinary incontincence ) Extremity Exam: Positive: Normal pulses; Negative: Clubbing, Cyanosis, Edema Skin Exam: Positive: Nl turgor and temperature Neuro Exam: Positive: Normal Speech, Strength at 5/5 X4 ext Psych Exam: Positive: Mood NL, Oriented x 3 Assessment /Plan Assessment Mr. Gore is an 83 year old male who was admitted overnight due to a UTI. Pt seen in the ED this morning. He reported he is not feeling well; he continues to urinate very little today and it is dark in appearance. He continues to suffer from pain when he does urinate. Pt reported he has a long history of urinary issues. The shaft of his penis is very short and so previous attempts to catheterize him have been traumatic; he has had to be catheterized in the OR as a result. Pt reported he struggles to get even a small amount of urine out. He is very opposed to having a catheter placed due to above. Pt has a PMHx which includes: Hypertension, CKDIII, SSS with pacemaker, Dyslipidemia, DMII, Diastolic HF, SBO,new onset A-fib, history of peritoneal abscess, ARF, Peripheral neuropathy, Hx of rectal cancer now with colostomy. CT ABD & PELVIS W/O CONTRAST IMPRESSION: 1. Resolution of small bowel obstruction since 04/11/2019. 2. Coarse interstitial lung base markings with minimal fibro-atelectatic change and minimal infiltrates with trace bilateral pleural effusions. 3. Cardiomegaly with pacemaker. 4. Left adrenal nodule measuring 18 mm with a Hounsfield measurement of 2. No follow-up is necessary. 5. Urinary bladder wall thickening with perivesicular induration and bladder diverticulum. Findings may reflect cystitis. There is some left renal sinus and periureteral edema which may reflect UTI. 6. Colonic diverticulosis without diverticulitis. There has been distal colonic resection with right mid abdominal colostomy. There is induration and stranding about the area which may reflect surgical revision. There is trace adjacent fluid collection which may reflect seroma which is unchanged from the prior study. UTI - urine culture - pending - prn bladder scan and notify provider if >300cc; 25mL per bladder scan in ED - consider consulting urology as pt SONA may be 2/2 obstruction and he is understandably leery of catheterization - continue Rocephin q24hr SONA on CKD III - mildly improved Cr. today - likely 2/2 obstruction (BPH), noted periureteral edema on CT - see above management plan BPH - continue Flomax HTN - continue Atenolol with hold parameters DMII - hold oral anti-glycemics - ISS with FBS achs - consistent carb diet HLD - continue Pravastatin Diastolic HF - Lasix on hold due to exquisitely painful urinary symptoms - daily weights and resume lasix as indicated GERD - Protonix inpatient - resume esomeprazole once d/c Plan/VTE VTE Prophylaxis Ordered?: Yes (Chronic Eliquis ) VS, I&O, 24H, Fishbone Vital Signs/I&O Vital Signs Date Time Temp Pulse Resp B/P (MAP) Pulse Ox O2 Delivery O2 Flow Rate FiO2 05/21/19 12:30 99.2 104 20 118/64 (82) 92 Room Air 05/21/19 02:30 1.0 I&O- Last 24 Hours up to 6 AM 05/21/19 06:00 Output Total 25 ml Balance -25 ml Patient developed acute cystitis with acute urethritis secondary to UTI. We continue treatment with ceftriaxone IV. His kidney function improved today Also patient has been having tachycardia with heart rate 120 to 130. Lopressor I V when necessary was added to medical regimen EKG ordered. Patient has minimal residual urine, if patient developed urinary retention we will catheterize him I, Taisha Zelaya, have independently examined this patient and performed my own physical exam, as well as reviewed the documentation and edited where necessary. I have discussed in detail with the nurse practitioner the findings and plan of treatment as documented by the nurse practitioner . I will continue to follow the patient during this hospital stay. Laboratory Data 24H LABS Laboratory Tests 2 05/20/19 22:15: Immature Granulocyte % (Auto) 0.6, Neutrophils (%) (Auto) 82.9H, Lymphocytes (%) (Auto) 7.3L, Monocytes (%) (Auto) 7.2H, Eosinophils (%) (Auto) 1.6, Basophils (%) (Auto) 0.4, Neutrophils # (Auto) 5.8, Lymphocytes # (Auto) 0.5L, Monocytes # (Auto) 0.5, Eosinophils # (Auto) 0.1, Basophils # (Auto) 0.0, Nucleated Red Blood Cells % (auto) 0.0, Urine Color AL, Urine Appearance TURBIDH, Urine pH 6.0, Urine Specific Nichols 1.017, Urine Protein 2+H, Urine Glucose (Auto)(UA) NEGATIVE, Urine Ketones (Auto) NEGATIVE, Urine Blood 3+H, Urine Nitrite POSITIVE, Urine Bilirubin NEGATIVE, Urine Urobilinogen 0.2, Urine Leukocyte Esterase (Auto) 3+H, Urine WBC (Auto) TNTCH, Urine RBC (Auto) TNTCH, Urine Hyaline Casts (Auto) 0, Urine Bacteria (Auto) 3+H, Urine Squamous Epithelial Cells 2, Urine Sperm (Auto) , Anion Gap 5L, Glomerular Filtration Rate 46.3, Lactic Acid Level 1.4, Calcium Level 8.4L, Total Bilirubin 0.5, Direct Bilirubin 0.2, Aspartate Amino Transf (AST/SGOT) 9, Alanine Aminotransferase (ALT/SGPT) 11L, Alkaline Phosphatase 53, Total Creatine Kinase 49, Total Protein 6.3L, Albumin 2.6L, Albumin/Globulin Ratio 0.70L 05/21/19 01:35: Bedside Glucose (Misc Panel) 121H 05/21/19 08:22: Nucleated Red Blood Cells % (auto) 0.0, Anion Gap 5L, Glomerular Filtration Rate 52.5, Calcium Level 8.3L 05/21/19 08:23: Bedside Glucose (Misc Panel) 112H 05/21/19 12:21: Bedside Glucose (Misc Panel) 114H CBC/BMP Laboratory Tests 05/20/19 22:15 05/21/19 08:22 Microbiology Microbiology 05/20/19 Blood Culture, Received Pending LUIS ENRIQUE OLIVARES PA-C May 21, 2019 15:34 TAISHA ZELAYA DO May 21, 2019 16:29
[2019-05-21] MEDS ORDERED: SLF 3 ML SYR IV PRN (17:30)
--- NOTE | 2019-05-21 20:14 | ECGEPIP ---
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
[2019-05-21] MEDS: SLF 3 ML SYR IV SCH (20:19)
[2019-05-21] MEDS: TAMSULOSIN 0.4 MG CAP PO SCH (20:19)
[2019-05-21] MEDS: PRAVASTATIN 20 MG TAB PO SCH (20:19)
--- NOTE | 2019-05-21 21:54 | HPE ---
DATE OF ADMISSION: 05/20/2019 CHIEF COMPLAINT: Dysuria. HISTORY OF PRESENT ILLNESS: This is an 83-year-old male with a history of diastolic heart failure, chronic kidney disease stage III, alcohol and tobacco abuse in the past, rectal cancer with chemotherapy and colostomy, chronic obstructive pulmonary disease (COPD), hypertension, dyslipidemia, peripheral arterial disease, who was in his usual state of health until today when he felt chills after drinking a cold glass of water. The patient says that he always drinks cold water at home and "it froze me up," along with some dysuria, decreased urination without any frequency or urgency. The patient denies nausea, vomiting, chest pain, pressure, tightness, shortness of breath, palpitations, lightheadedness or dizziness, episodes of chills "scared him," and he thought that he was going to , which prompted him to come to the emergency room. In the emergency room, he was found to have abnormal urinalysis with a low grade temperature of 100.4, normal white count with 82% neutrophils, no bandemia, acute kidney injury with creatinine 1.54. The patient says that his colostomy bag has had increased output for the past 2 days, despite drinking water and milk at home, as he does not drink any soda. The patient is not able to compensate. CT of the abdomen and pelvis shows trace bilateral pleural effusions, urinary bladder wall thickening with paravesicular invasion and bladder diverticulum reflecting cystitis with a left renal sinus and periureteral edema, which may reflect urinary tract infection (UTI). The patient has distal colonic resection with a right mid abdominal colostomy with adjacent fluid collection, which reflect seroma, which is unchanged from prior study. The hospitalist was asked to admit for urinary tract infection (UTI). PAST MEDICAL HISTORY: 1. Rectal cancer, status post chemotherapy and radiation with colostomy. 2. Atrial fibrillation. 3. Pacer. 4. Chronic obstructive pulmonary disease (COPD). 5. Hypertension. 6. Dyslipidemia. 7. Peripheral arterial disease. 8. Diabetes. 9. Diastolic heart failure. 10. Chronic kidney disease stage III. 11. Alcohol and tobacco abuse in the past. 12. Obesity. 13. Abdominal hernias. PAST SURGICAL HISTORY: 1. Abdominoperineal resection with right sided ostomy in 2011. 2. Small bowel obstruction with incarcerated parastomal hernia, ventral incisional hernia and extensive adhesions, status post laparoscopic lysis of adhesions, reduction of incarcerated parastomal hernia, repair of hernias and placement of mesh in March 2019. 3. Cataract surgery. 4. Tonsillectomy. 5. Ostomy. 6. Pacemaker placement. ALLERGIES: No known drug allergies. FAMILY HISTORY: Father in his 50s with throat cancer, was a smoker. Mother at age 96, osteoporosis and fractures. SOCIAL HISTORY: HOME MEDICATIONS: - apixaban 5 mg twice a day - atenolol 50 mg daily - Lasix 40 mg daily - ipratropium albuterol four times a day as needed - pravastatin 40 mg at night - Flomax 0.4 mg at night - calcium and vitamin D one tablet daily - omeprazole 40 mg daily REVIEW OF SYSTEMS: As per history of present illness. 12-point system otherwise negative. PHYSICAL EXAMINATION: VITAL SIGNS: Temperature 100.4, pulse 133, respiratory rate 20, blood pressure 117/74, 94% on room air. GENERAL: The patient is awake, alert, oriented to person and place. He is not providing much of a history. He is disheveled. Poor dentition with missing teeth. The patient has no jugular venous distention (JVD) and no thyromegaly. Anicteric sclerae. No jaundice. Dry mucous membranes. LUNGS: Diminished with bibasilar crackles. HEART: S1, S2. Irregularly irregular and tachycardic. Pacer noted. ABDOMEN: Distended, nontender. The patient has a midline ostomy with green stool, well healed scars. Positive bowel sounds times four quadrants. No rebound or guarding. EXTREMITIES: Chronic venous stasis ulcers and 3+ pitting edema. LABORATORY DATA: White count 7, hemoglobin 11, hematocrit 35, platelet count 181. Sodium 142, potassium 3.5, chloride 109, bicarbonate 28, BUN 27, creatinine 1.54, glucose of 130, lactic acid 1.4, calcium 8.4, total bilirubin 0.5, direct bilirubin 0.2, AST 9, ALT 11, alkaline phosphatase 53, total CK 49, total protein 6.3, albumin 2.6, lactic acid 1.4. Urinalysis: Turbid in appearance, 2+ protein, 3+ blood, 3+ leukocyte esterase, too numerous to count white blood cells and red blood cells, 3+ bacteria. Blood culture has been sent. CT of the abdomen and pelvis shows resolution of bowel obstruction from 04/11/2019. Fibroatelectasis, minimal infiltrates with trace bilateral pleural effusions, splenomegaly, pacer, left adrenal nodule measures 18 mm, cystitis, urinary tract infection (UTI), diverticulosis without diverticulitis, history of colonic resection with right sided abdominal colostomy, induration and stranding about the area, which may reflect surgical revision. There is trace fluid collection, which may reflect seroma, unchanged from prior study. ASSESSMENT AND PLAN: This is an 83-year-old male with a histo of chronic obstructive pulmonary disease (COPD), hypertension, dyslipidemia, peripheral arterial disease, diabetes, diastolic heart failure, chronic kidney disease stage III, rectal cancer, status post chemotherapy and colostomy with small bowel obstruction, lysis of adhesions and a right mid abdominal colostomy in March 2019, atrial fibrillation with pacemaker due to sick sinus syndrome with bradycardia, obesity and multiple abdominal hernias causing small bowel obstruction, who presents to the emergency room today with complaints of chills and some dysuria, found to have abnormal urinalysis and admitted for urinary tract infection. ACTIVE ISSUES: 1. Urinary tract infection (UTI). The patient has received ceftriaxone intravenously, we will continue. Await urine culture results. Hold off on diuretics since the patient has an acute kidney injury with creatinine of 1.5. He currently appears to be at his baseline volume status. He has chronic lower extremity edema, which is 2+. 2. Acute kidney injury on chronic kidney disease stage III, currently with a creatinine of 1.5. Diuretic has been held for one day. Trial of intravenous fluids and resume diuretics once he is back to his baseline creatinine. 3. Atrial fibrillation/sick sinus syndrome requiring pacemaker placement. Rate uncontrolled. Atenolol has not been given this evening. Telemetry monitoring for now and resume atenolol 50 mg daily and adjust as needed for better rate control. Chronic Eliquis renally dosed. 4. Diastolic heart failure. Appears to be at baseline volume status. We will hold the patient's diuretic until creatinine is improved by tomorrow, may resume. Strict input and output, daily weights. 5. Chronic obstructive pulmonary disease (COPD). No acute exacerbation. 6. Hypertension. Currently controlled at 117 on chronic atenolol. 7. Type 2 diabetes. On consistent carbohydrate diet. Insulin sliding scale with coverage. 8. History of rectal cancer, status post chemotherapy and colostomy. Recent small bowel obstruction with mid abdominal colostomy. Lysis of adhesions. Monitor for increased ostomy output. Check GI panel if increased watery diarrhea. CODE STATUS: The patient is DO NOT RESUSCITATE, DO NOT INTUBATE. MTDD
[2019-05-22 04:00] VITALS: BP 118/65
[2019-05-22 05:59] LABS: HEMATOCRIT 33.8 % (42.0-52.0); HEMOGLOBIN 10.6 g/dl (13.5-17.5); MEAN CORPUSCULAR HGB CONC 31.4 g/dl (32.0-36.5); MEAN CORPUSCULAR VOLUME 98.8 fl (80.0-96.0); PLATELET COUNT, AUTOMATED 149 10^3/uL (150-450); RED BLOOD COUNT 3.42 10^6/uL (4.30-6.10); WHITE BLOOD COUNT 5.1 10^3/uL (4.0-10.0)
[2019-05-22] MEDS: SLF 3 ML SYR IV SCH ×3 (06:07→20:48)
[2019-05-22 06:23] LABS: CALCIUM LEVEL 8.5 MG/DL (8.8-10.2); CREATININE FOR GFR 1.29 MG/DL (0.70-1.30); GLOMERULAR FILTRATION RATE 56.8 (>35); MAGNESIUM LEVEL 1.7 MG/DL (1.8-2.4); POTASSIUM SERUM 3.8 MEQ/L (3.5-5.1)
[2019-05-22] MEDS: HumaLOG INSULIN (NovoLOG) PER UNIT SC SCH ×5 (07:30→20:14)
[2019-05-22 08:00] VITALS: BP 104/68
[2019-05-22] MEDS ORDERED: MAG SULF 1GM/100ML (MAG RUN) 1 GM in IV 1 EA IV ONE (08:00)
[2019-05-22] MEDS: NS 1,000 ML IV SCH ×2 (08:12→20:48)
[2019-05-22] MEDS: PANTOPRAZOLE 40MG TAB (PROTONIX) PO SCH (08:31)
[2019-05-22] MEDS: atenoloL 50 MG TAB PO SCH (08:31)
[2019-05-22] MEDS: APIXABAN 5 MG TAB (ELIQUIS) PO SCH ×2 (08:31→20:48)
[2019-05-22] MEDS: cefTRIAXone SOD 1 GM in D5W MINI-BAG PLUS 50 ML IV SCH (09:40)
--- NOTE | 2019-05-22 11:12 | IPNPDOC ---
Text Note Date of Service The patient was seen on 05/22/19. NOTE Subjective: Patient still complaining of burning pain during urination, but s ymptoms improved. No any acute events overnight. Patient denied fever, chills, nausea, vomiting, diarrhea Objective: VITAL SIGNS: Please see below. GENERAL APPEARANCE: Obese male, poor kept male, not in apparent distress HEENT: Normocephalic, atraumatic. Mucous members moist and pink CARDIOVASCULAR: Regular rate and rhythm. No murmurs, rubs or gallops. Radial pulses are intact. There is no lower extremity edema LUNGS: Diminished lung sounds ABDOMEN: Abdomen is soft and nontender. Colostomy in place, there is some maceration around colostomy MUSCULOSKELETAL: Range of motion is intact in all 4 extremities, lower extremity skin changes consistent with peripheral vascular diseases, +1 pitting edema NEUROLOGICAL: Cranial nerves II-12 are grossly intact. Speech is not dysarthric Patient is 83 years old male with past medical history of hypertension, chronic kidney diseases, type 2 diabetes, frequent UTI presented hospital with burning sensation during urination. UTI/urethritis/cystitis UA showed pyuria, with urinary incontinence Await urine culture Continue ceftriaxone IV Acute kidney injury on chronic kidney disease stage III Improved today Most likely prerenal Continue gentle IV fluids given history of diastolic CHF Diastolic heart failure Not in acute exacerbation I's and O's cardiac diet Chronic obstructive pulmonary disease (COPD) No acute exacerbation Hypertension Blood pressures under control Continue home cardioprotective medication Type 2 diabetes Diabetes diet Insulin sliding scale A. fib Status post pacemaker placement Heart rate is under control Continue oral targeted anticoagulation therapy VS,Fishbone, I+O VS, Fishbone, I+O Laboratory Tests 05/22/19 05:43 Vital Signs Date Time Temp Pulse Resp B/P (MAP) Pulse Ox O2 Delivery O2 Flow Rate FiO2 05/22/19 08:31 90 104/68 05/22/19 08:00 2.0 05/22/19 08:00 97.2 18 96 Nasal Cannula I&O- Last 24 Hours up to 6 AM 05/22/19 05:59 Intake Total 680 ml Output Total 275 ml Balance 405 ml TAISHA ZELAYA DO May 22, 2019 11:12
[2019-05-22 12:00] VITALS: BP 133/66
[2019-05-22 16:00] VITALS: BP 123/68
[2019-05-22 20:00] VITALS: BP 123/85
[2019-05-22] MEDS: PRAVASTATIN 20 MG TAB PO SCH (20:48)
[2019-05-22] MEDS: TAMSULOSIN 0.4 MG CAP PO SCH (20:48)
[2019-05-23] VITALS: BP 121/70
[2019-05-23 04:00] VITALS: BP 114/84
[2019-05-23 05:18] LABS: HEMATOCRIT 34.2 % (42.0-52.0); HEMOGLOBIN 10.8 g/dl (13.5-17.5); MEAN CORPUSCULAR HEMOGLOBIN 30.7 pg (27.0-33.0); MEAN CORPUSCULAR HGB CONC 31.6 g/dl (32.0-36.5); MEAN CORPUSCULAR VOLUME 97.2 fl (80.0-96.0); PLATELET COUNT, AUTOMATED 167 10^3/uL (150-450); RED BLOOD COUNT 3.52 10^6/uL (4.30-6.10); WHITE BLOOD COUNT 4.8 10^3/uL (4.0-10.0)
[2019-05-23 05:39] LABS: CALCIUM LEVEL 8.7 MG/DL (8.8-10.2); CREATININE FOR GFR 1.29 MG/DL (0.70-1.30); GLOMERULAR FILTRATION RATE 56.8 (>35); MAGNESIUM LEVEL 1.9 MG/DL (1.8-2.4); POTASSIUM SERUM 3.7 MEQ/L (3.5-5.1)
[2019-05-23] MEDS: SLF 3 ML SYR IV SCH ×2 (06:11→13:30)
[2019-05-23] MEDS: NS 1,000 ML IV SCH (06:40)
[2019-05-23] MEDS: HumaLOG INSULIN (NovoLOG) PER UNIT SC SCH ×2 (07:37→12:00)
[2019-05-23 08:00] VITALS: BP 148/86
[2019-05-23 08:24] LABS: PERCENT SATURATION 7.9 % (19.7-50.0)
[2019-05-23] MEDS: PANTOPRAZOLE 40MG TAB (PROTONIX) PO SCH (09:13)
[2019-05-23] MEDS: APIXABAN 5 MG TAB (ELIQUIS) PO SCH (09:13)
[2019-05-23 09:14] VITALS: BP 148/86
[2019-05-23] MEDS: atenoloL 50 MG TAB PO SCH (09:14)
[2019-05-23] MEDS: cefTRIAXone SOD 1 GM in D5W MINI-BAG PLUS 50 ML IV SCH (09:14)
--- NOTE | 2019-05-23 10:38 | IPNPDOC ---
Text Note Date of Service The patient was seen on 05/23/19. NOTE Subjective: No any acute events overnight. Patient denied fever, chills, nausea, vomiting, diarrhea Objective: VITAL SIGNS: Please see below. GENERAL APPEARANCE: Obese male, poor kept male, not in apparent distress HEENT: Normocephalic, atraumatic. Mucous members moist and pink CARDIOVASCULAR: Regular rate and rhythm. No murmurs, rubs or gallops. Radial pulses are intact. There is no lower extremity edema LUNGS: Diminished lung sounds ABDOMEN: Abdomen is soft and nontender. Colostomy in place, there is some maceration around colostomy MUSCULOSKELETAL: Range of motion is intact in all 4 extremities, lower extremity skin changes consistent with peripheral vascular diseases, +1 pitting edema NEUROLOGICAL: Cranial nerves II-12 are grossly intact. Speech is not dysarthric Patient is 83 years old male with past medical history of hypertension, chronic kidney diseases, type 2 diabetes, frequent UTI presented hospital with burning sensation during urination. UTI/urethritis/cystitis UA showed pyuria, with urinary incontinence urine culture positive for Escherichia coli, curtis sensitive Continue ceftriaxone IV Acute kidney injury on chronic kidney disease stage III Today stable Most likely prerenal Continue gentle IV fluids given history of diastolic CHF Diastolic heart failure Not in acute exacerbation I's and O's cardiac diet Chronic obstructive pulmonary disease (COPD) No acute exacerbation Hypertension Blood pressures under control Continue home cardioprotective medication Type 2 diabetes Diabetes diet Insulin sliding scale A. fib Status post pacemaker placement Heart rate is under control Continue oral targeted anticoagulation therapy Anemia normocytic Most likely anemia of chronic diseases We'll check stool for blood Iron panel VS,Antonia, I+O VS, Ane, I+O Laboratory Tests 05/23/19 04:50 Vital Signs Date Time Temp Pulse Resp B/P (MAP) Pulse Ox O2 Delivery O2 Flow Rate FiO2 05/23/19 09:14 84 148/86 05/23/19 08:00 97.5 20 94 Nasal Cannula 2.0 I&O- Last 24 Hours up to 6 AM 05/23/19 06:00 Intake Total 2970 ml Output Total 920 ml Balance 2050 ml TAISHA ZELAYA DO May 23, 2019 10:38
[2019-05-23 12:00] VITALS: BP 135/77
[2019-05-23] MEDS ORDERED: LEVO500T3 PO (13:34)
[2019-05-23] MEDS ORDERED: FERR325T82 PO (14:06)
--- NOTE | 2019-05-23 14:12 | DS.PDOC ---
Discharge Summary General Date of Admission May 20, 2019 at 23:57 Date of Discharge 05/23/19 Discharge Summary PROCEDURES PERFORMED DURING STAY: [None]. ADMITTING DIAGNOSES: Urinary tract infection (UTI). Acute kidney injury on chronic kidney disease stage III Diastolic heart failure Chronic obstructive pulmonary disease (COPD) Type 2 diabetes Hypertension A. fib Anemia normocytic DISCHARGE DIAGNOSES: Urinary tract infection (UTI). Acute kidney injury on chronic kidney disease stage III Diastolic heart failure Chronic obstructive pulmonary disease (COPD) Type 2 diabetes Hypertension A. fib Anemia normocytic COMPLICATIONS/CHIEF COMPLAINT: UTI. HISTORY OF PRESENT ILLNESS: This is an 83-year-old male with a history of diastolic heart failure, chronic kidney disease stage III, alcohol and tobacco abuse in the past, rectal cancer with chemotherapy and colostomy, chronic obstructive pulmonary disease (COPD), hypertension, dyslipidemia, peripheral arterial disease, who was in his usual state of health until today when he felt chills after drinking a cold glass of water. The patient says that he always drinks cold water at home and "it froze me up," along with some dysuria, decreased urination without any frequency or urgency. The patient denies nausea, vomiting, chest pain, pressure, tightness, shortness of breath, palpitations, lightheadedness or dizziness, episodes of chills "scared him," and he thought that he was going to , which prompted him to come to the emergency room. In the emergency room, he was found to have abnormal urinalysis with a low grade temperature of 100.4, normal white count with 82% neutrophils, no bandemia, acute kidney injury with creatinine 1.54. The patient says that his colostomy bag has had increased output for the past 2 days, despite drinking water and milk at home, as he does not drink any soda. The patient is not able to compensate. CT of the abdomen and pelvis shows trace bilateral pleural effusions, urinary bladder wall thickening with paravesicular invasion and bladder diverticulum reflecting cystitis with a left renal sinus and periureteral edema, which may reflect urinary tract infection (UTI). The patient has distal colonic resection with a right mid abdominal colostomy with adjacent fluid collection, which reflect seroma, which is unchanged from prior study. The hospitalist was asked to admit for urinary tract infection (UTI). HOSPITAL COURSE: During hospital stay following issue addressed UTI/urethritis/cystitis UA showed pyuria, with urinary incontinence urine culture positive for Escherichia coli, curtis sensitive Continue ceftriaxone IV Acute kidney injury on chronic kidney disease stage III Today stable Most likely prerenal Continue gentle IV fluids given history of diastolic CHF Diastolic heart failure Not in acute exacerbation I's and O's cardiac diet Chronic obstructive pulmonary disease (COPD) No acute exacerbation Hypertension Blood pressures under control Continue home cardioprotective medication Type 2 diabetes Diabetes diet Insulin sliding scale A. fib Status post pacemaker placement Heart rate is under control Continue oral targeted anticoagulation therapy Anemia normocytic Most likely anemia of chronic diseases combined with iron deficiency anemia Iron low occult stool blood pending Iron supplementation DISCHARGE MEDICATIONS: Please see below. ALLERGIES: Please see below. PHYSICAL EXAMINATION ON DISCHARGE: VITAL SIGNS: Please see below. VITAL SIGNS: Please see below. GENERAL APPEARANCE: Obese male, poor kept male, not in apparent distress HEENT: Normocephalic, atraumatic. Mucous members moist and pink CARDIOVASCULAR: Regular rate and rhythm. No murmurs, rubs or gallops. Radial pulses are intact. There is no lower extremity edema LUNGS: Diminished lung sounds ABDOMEN: Abdomen is soft and nontender. Colostomy in place, there is some maceration around colostomy MUSCULOSKELETAL: Range of motion is intact in all 4 extremities, lower extremity skin changes consistent with peripheral vascular diseases, +1 pitting edema NEUROLOGICAL: Cranial nerves II-12 are grossly intact. Speech is not dysarthric LABORATORY DATA: Please see below. IMAGING: PROCEDURE INFORMATION: Exam: CT Abdomen And Pelvis Without Contrast Exam date and time: 05/20/2019 10:58 PM Age: 83 years old Clinical indication: Abdominal pain; Generalized; Additional info: Hematuria/colic TECHNIQUE: Imaging protocol: Computed tomography of the abdomen and pelvis without contrast. Radiation optimization: All CT scans at this facility use at least one of these dose optimization techniques: automated exposure control; mA and/or kV adjustment per patient size (includes targeted exams where dose is matched to clinical indication); or iterative reconstruction. COMPARISON: CT ABD PELVIS W/O CONTRAST 04/11/2019 1:39 PM FINDINGS: Tubes, catheters and devices: Pacemaker in position. Lungs: Coarse interstitial markings with minimal bibasilar fibro-atelectatic change and minimal infiltrates. Pleural space: Trace bilateral pleural effusions, right greater than left. Heart: The left atrium measures 6.5 cm in its AP dimension. Liver: Question of hepatic cyst in the hepatic dome measuring 12 mm. Gallbladder and bile ducts: Normal. No calcified stones. No ductal dilation. Pancreas: Normal. No ductal dilation. Spleen: Normal. No splenomegaly. Adrenals: Left adrenal nodule measuring 18 mm with a Hounsfield measurement of 2. Kidneys and ureters: Multiple bilateral renal cysts measuring up to 12.2 cm on the right. There is some left renal sinus induration which is asymmetric which continues as some periureteral edema. Stomach and bowel: There is colonic diverticulosis without evidence of diverticulitis. Distal colonic resection with right mid abdominal colostomy at the level of the sigmoid. There is associated surrounding induration and herniation of fat in the area of surgery with minimal fluid collection adjacent to the ostomy site which measures approximately 6.0 x 1.0 x 1.0 cm. Appendix: A normal appendix is seen. Intraperitoneal space: See Stomach And Bowel Finding. Vasculature: There is mild calcification of the abdominal aorta with extension into the iliac arteries. Lymph nodes: Unremarkable. No enlarged lymph nodes. Bladder: Urinary bladder wall thickening with perivesicular induration and a 2.6 cm bladder diverticulum posterior superiorly on the left. Reproductive: Unremarkable as visualized. Bones/joints: Degenerative changes of the lumbar spine. Soft tissues: Unremarkable. IMPRESSION: 1. Resolution of small bowel obstruction since 04/11/2019. 2. Coarse interstitial lung base markings with minimal fibro-atelectatic change and minimal infiltrates with trace bilateral pleural effusions. 3. Hepatomegaly with pacemaker. 4. Left adrenal nodule measuring 18 mm with a Hounsfield measurement of 2. No follow-up is necessary. 5. Urinary bladder wall thickening with perivesicular induration and bladder diverticulum. Findings may reflect cystitis. There is some left renal sinus and periureteral edema which may reflect UTI. 6. Colonic diverticulosis without diverticulitis. There has been distal colonic resection with right mid abdominal colostomy. There is induration and stranding about the area which may reflect surgical revision. There is trace adjacent fluid collection which may reflect seroma which is unchanged from the prior study. Electronically signed by: Francisco Copeland On 05/21/2019 00:09:37 AM PROGNOSIS: Favorable ACTIVITY: [As tolerated]. DIET: Cardiac DISCHARGE PLAN: Home DISPOSITION: Home DISCHARGE INSTRUCTIONS: See above ITEMS TO FOLLOWUP ON ON OUTPATIENT: Follow-up with PCP and urologist DISCHARGE CONDITION: [Stable]. TIME SPENT ON DISCHARGE: Greater than 20 minutes. Vital Signs/I&Os Vital Signs Date Time Temp Pulse Resp B/P (MAP) Pulse Ox O2 Delivery O2 Flow Rate FiO2 05/23/19 12:00 98.0 86 20 135/77 (96) 93 Nasal Cannula 2.0 I&O- Last 24 Hours up to 6 AM 05/23/19 06:00 Intake Total 2970 ml Output Total 920 ml Balance 2050 ml Laboratory Data Labs 24H Laboratory Tests 2 05/22/19 16:56: Bedside Glucose (Misc Panel) 135H 05/22/19 20:04: Bedside Glucose (Misc Panel) 141H 05/23/19 04:50: Nucleated Red Blood Cells % (auto) 0.0, Anion Gap 3L, Glomerular Filtration Rate 56.8, Calcium Level 8.7L, Magnesium Level 1.9, Iron Level 17L, Total Iron Binding Capacity 214L, Transferrin % Saturation 7.9L 05/23/19 11:29: Bedside Glucose (Misc Panel) 151H CBC/BMP Laboratory Tests 05/23/19 04:50 FSBS Laboratory Tests Test 05/22/19 16:56 05/22/19 20:04 05/23/19 11:29 Range/Units Bedside Glucose (Misc Panel) 135 141 151 83-110 MG/DL Microbiology Microbiology 05/21/19 Urine Culture - Final, Complete Escherichia Coli 05/20/19 Blood Culture - Preliminary, Resulted No Growth after 48 hours. All Specime... Discharge Medications Scheduled Apixaban (Eliquis) 5 Mg Tablet, 5 MG PO BID, (Reported) Atenolol (Atenolol) 50 Mg Tablet, 50 MG PO DAILY, (Reported) Calcium Carbonate/Vitamin D3 (Calcium 600-Vit D3 200 Tablet) 1 Tab Tab, 1 TAB PO DAILY, (Reported) Esomeprazole Magnesium (Esomeprazole Magnesium) 40 Mg Capsule.dr, 40 MG PO DAILY, (Reported) Furosemide (Furosemide) 40 Mg Tablet, 40 MG PO DAILY, (Reported) Levofloxacin (Levofloxacin) 500 Mg Tablet, 500 MG PO DAILY Pravastatin Sodium (Pravastatin Sodium) 40 Mg Tablet, 40 MG PO QHS, (Reported) Tamsulosin HCl (Flomax) 0.4 Mg Capsule, 0.4 MG PO QHS, (Reported) Scheduled PRN Ipratropium/Albuterol Sulfate (Iprat-Albut 0.5-3(2.5) mg/3 ml) 3 Ml Ampul.neb, 1 VIAL NEB QID PRN for SOB/WHEEZING, (Reported) Allergies Coded Allergies: No Known Allergies (Unverified , 05/20/19) TAISHA ZELAYA DO May 23, 2019 14:12
--- NOTE | 2019-05-26 20:21 | PMRDS ---
DATE OF ADMISSION: 05/20/2019 DATE OF DISCHARGE: 05/23/2019 CHIEF COMPLAINT/DISCHARGE DIAGNOSIS: New-onset atrial fibrillation with peripheral polyneuropathy. HISTORY OF PRESENT ILLNESS: 83M pmh DM, COPD, HTN, HLD, PAD, diastolic CHF, CKD3, EOTH and tobacco abuse in the past, rectal cancer s/p chemotherapy with colostomy, admitted to [facility] ED for SBO in setting of parastomal hernia on 04-11-19. NGT was placed and he underwent lysis of adhesions on 04-15-19 and reduction of his incarcerated hernia. He was later evaluated by cardiology for rapid Afib with RVR and elevated cardiac enzymes. cardiology placed him on a short course of digoxin and started him on Atenolol. Later he was noted to have high grade AV block and underwent PM placement on 04-27-19. He also developed acute kidney failure for which renal was consulted and recommended gentle hydration. He was evaluated by therapy and noted to have significant deconditioning requiring assistance in ADLs and mobility well below his prior level of function and deemed medically appropriate for discharge to ARU. Upon initial eval patient reports he has had a weak urinary stream and that his feet are numb and tingling from longstanding DM which he reports is diet controlled. PAST MEDICAL HISTORY: As per history of present illness (HPI). HOSPITAL COURSE: The patient was admitted and enrolled in a comprehensive physical therapy (PT)/occupational therapy (OT) program. He received 24-hour nursing supervision, and weekly team meetings were held to discuss his progress. The patient was followed by renal during his hospital course for acute kidney injury (SONA) in the setting of chronic kidney disease (CKD) and for fluid management. The patient did not complain of any palpitations following his pacemaker placement on 04/27/2019 or abdominal discomfort status post his incarcerated hernia reduction. The patient's pain was well controlled with Tylenol, and his diabetes was controlled primarily with diet. He made significant gains in therapy and was deemed medically and functionally stable to return home. DISCHARGE MEDICATIONS: As per instructions. FUNCTIONAL HISTORY ON DISCHARGE: The patient was modified independent for all functional transfers. Able to ambulate nearly 200 feet with a rolling walker. In occupational therapy he was requiring some assistance with donning and doffing socks in addition to clipping his suspenders; however, the patient reported he had help at home. Thank you for this referral
== END 2019-05-23 15:19 | disposition home or self-care (01) | DRG 690 ==
LOC: M ED 21:19 → M ED INP 23:57 → ENRESERVTM 05-21 14:25 → ENRESERVDT 05-21 14:25 → M PCU 05-21 17:08
PROVIDERS: ADMIT General Practice; ATTEND General Practice
DX: N39.0 Urinary tract infection, site not specified (principal); I50.32 Chronic diastolic (congestive) heart failure; I13.0 Hypertensive heart and chronic kidney disease with heart failure and stage 1 through stage 4 chronic kidney disease, or unspecified chronic kidney disease; N17.9 Acute kidney failure, unspecified; R30.0 Dysuria; N18.3 Chronic kidney disease, stage 3 (moderate); Z85.048 Personal history of other malignant neoplasm of rectum, rectosigmoid junction, and anus; Z92.21 Personal history of antineoplastic chemotherapy; J44.9 Chronic obstructive pulmonary disease, unspecified; E78.5 Hyperlipidemia, unspecified; E11.22 Type 2 diabetes mellitus with diabetic chronic kidney disease; Z92.3 Personal history of irradiation; I48.91 Unspecified atrial fibrillation; Z95.0 Presence of cardiac pacemaker; K46.9 Unspecified abdominal hernia without obstruction or gangrene; E66.9 Obesity, unspecified; Z87.891 Personal history of nicotine dependence; Z98.49 Cataract extraction status, unspecified eye; Z93.3 Colostomy status; Z79.899 Other long term (current) drug therapy; Z68.39 Body mass index [BMI] 39.0-39.9, adult; I49.5 Sick sinus syndrome; Z66 Do not resuscitate; B96.20 Unspecified Escherichia coli [E. coli] as the cause of diseases classified elsewhere; R32 Unspecified urinary incontinence; D64.9 Anemia, unspecified; E11.51 Type 2 diabetes mellitus with diabetic peripheral angiopathy without gangrene

== ENCOUNTER 2019-07-30 11:12 | Inpatient (IN) | payer MEDICARE, OTHER ==
[~2019-07-30] VITALS: Ht 170.2 cm; Wt 112.2 kg
[~2019-07-30 11:12] MED LIST changes: +ESOM1CAP5 PO; +FERR325T82 PO; +IPRA0.00 NEB; +LEVO500T3 PO
[2019-07-30] MEDS ORDERED: methylPREDNISolone INJ 125 MG/2 ML VIAL (J2930) IV ONE (11:30)
[2019-07-30 11:44] LABS: BASO % 0.7 % (0.0-1.0); EOS # 0.1 10^3/uL (0.0-0.5); EOS % 2.4 % (0.0-3.0); HEMATOCRIT 43.1 % (42.0-52.0); HEMOGLOBIN 12.1 g/dl (13.5-17.5); LYMPH # 0.8 10^3/uL (1.5-5.0); LYMPH % 13.1 % (24.0-44.0); MEAN CORPUSCULAR HEMOGLOBIN 28.8 pg (27.0-33.0); MEAN CORPUSCULAR HGB CONC 28.1 g/dl (32.0-36.5); MEAN CORPUSCULAR VOLUME 102.6 fl (80.0-96.0); MONO # 0.5 10^3/uL (0.0-0.8); NEUTROPHILS # 4.4 10^3/uL (1.5-8.5); NEUTROPHILS % 74.3 % (36.0-66.0); PLATELET COUNT, AUTOMATED 150 10^3/uL (150-450); WHITE BLOOD COUNT 5.9 10^3/uL (4.0-10.0)
[2019-07-30 11:52] LABS: INR 1.38; PROTHROMBIN TIME 16.7 SECONDS (11.8-14.0)
[2019-07-30] MEDS: COMBIVENT RESPIMAT 100-20MCG INHALER 4GM INH SCH ×3 (11:57→19:58)
[2019-07-30] MEDS: NITROGLYCERIN 2% OINT 1 GM *U/D* PKT TOP SCH ×2 (12:00→18:05)
[2019-07-30 12:07] LABS: VENOUS BASE EXCESS 11.2 (-2.0-2.0); VENOUS HCO3 41.7 MEQ/L (23.0-27.0); VENOUS O2 SATURATION 95.6 % (60.0-80.0); VENOUS PARTIAL PRESSURE CO2 91.5 mmHg (38.0-50.0); VENOUS PARTIAL PRESSURE O2 82.8 mmHg (30.0-50.0); VENOUS PH 7.277 UNITS (7.330-7.430); VENOUS TOTAL CO2 44.5 MEQ/L (24.0-28.0)
[2019-07-30 12:10] LABS: ALBUMIN 2.6 GM/DL (3.2-5.2); BILIRUBIN,DIRECT 0.2 MG/DL (0.0-0.2); BILIRUBIN,TOTAL 0.5 MG/DL (0.2-1.0); CALCIUM LEVEL 8.8 MG/DL (8.8-10.2); CK-MB VALUE MASS 1.6 NG/ML (<3.6); CREATININE FOR GFR 1.39 MG/DL (0.70-1.30); MB/CK RELATIVE INDEX 4.1 (< OR =4); POTASSIUM SERUM 4.3 MEQ/L (3.5-5.1); TOTAL PROTEIN 6.8 GM/DL (6.4-8.2); TROPONIN I 0.15 NG/ML (< 0.10)
--- NOTE | 2019-07-30 12:30 | REP ---
REASON FOR EXAM: Dyspnea and cough. COMPARISON: 05/20/2019, also portable. The technique utilized in obtaining the radiograph has magnified the cardiac silhouette and accentuated the interstitial markings. There is cardiomegaly accentuated by technique. The interstitial markings are diffusely increased. There appears to be a possible developing patchy opacity in the right lower lobe. The lung carrizales are hypo-expanded. The single chamber bipolar pacemaker is unchanged. There is no changed in the osseous structures. IMPRESSION: There is cardiomegaly and evidence of interstitial edema. There is a possible developing right lower lobe opacity which could represent either asymmetric pulmonary edema, subsegmental atelectatic change, or developing pneumonia or a combination thereof. Clinical correlation is necessary. Consider followup with PA and lateral views of the chest. Electronically Signed by Rogerio Donis DO 07/30/2019 12:34 P
[2019-07-30] MEDS ORDERED: FUROSEMIDE 100MG/10ML VIAL (J1940) IV ONE (12:45)
[2019-07-30] MEDS ORDERED: PATIENT COMMENT (12:58)
[2019-07-30] MEDS ORDERED: ACETAMINOPHEN TAB 650MG DOSE (2X325MG) PO PRN (13:30)
[2019-07-30] MEDS ORDERED: HEPARIN SOD (PORCINE) 5000UNITS/ML VIAL (J1644 PER 1000UNITS) SC SCH (13:30)
[2019-07-30] MEDS ORDERED: ALBUTEROL SULFATE 2.5 MG/0.5 ML INH NEB SOLN NEB PRN (13:30)
[2019-07-30] MEDS ORDERED: MAALOX 30 ML SUSP *UDC PO PRN (13:30)
[2019-07-30] MEDS ORDERED: MOM 30ML SUSPENSION UDC PO PRN (13:30)
--- NOTE | 2019-07-30 13:56 | HPEPDOC ---
General Date of Admission Date of Service: July 30, 2019 Chief Complaint The patient is a 84-year-old male admitted with a reason for visit of Sob/Chf. Source: Patient, RN/MD, Old records Exam Limitations: No limitations Timing/Duration: Other (few days) Severity: Moderate Associated Symptoms: Other (and of breath) History of Present Illness This is a 83 years old white male with past medical history of rectal cancer status post chemoradiation, status post colostomy, atrial fibrillation, PPM, COPD, hypertension, dyslipidemia, PAD, diabetes mellitus, chronic diastolic heart failure, chronic C KD stage III, alcohol, tobacco abuse in the past, obesity, abdominal hernia, was and recently discharged home after he was treated with dysuria and had a stay in acute rehabilitation unit for a little while, came back again with chief complaints of cough and increasing shortness of breath since last few days. Patient is a unable to give me a good history secondary to his medical status Home Medications Scheduled Apixaban (Eliquis) 5 Mg Tablet, 5 MG PO BID, (Reported) Atenolol (Atenolol) 50 Mg Tablet, 50 MG PO DAILY, (Reported) Calcium Carbonate/Vitamin D3 (Calcium 600-Vit D3 200 Tablet) 1 Tab Tab, 1 TAB PO DAILY, (Reported) Esomeprazole Magnesium (Esomeprazole Magnesium) 40 Mg Capsule.dr, 40 MG PO DAILY, (Reported) Furosemide (Furosemide) 40 Mg Tablet, 40 MG PO DAILY, (Reported) Pravastatin Sodium (Pravastatin Sodium) 40 Mg Tablet, 40 MG PO QHS, (Reported) Tamsulosin HCl (Flomax) 0.4 Mg Capsule, 0.4 MG PO QHS, (Reported) Scheduled PRN Ipratropium/Albuterol Sulfate (Iprat-Albut 0.5-3(2.5) mg/3 ml) 3 Ml Ampul.neb, 1 VIAL NEB QID PRN for SOB/WHEEZING, (Reported) Miscellaneous Medications [Patient Comment] , (Reported) UNABLE TO VERIFY MEDICATIONS WITH PATIENT. PATIENT'S VERIFIED PATIENT'S PILL BOTTLES BUT UNSURE IF HE TOOK MEDICATOINS THIS MORNING Allergies Coded Allergies: No Known Allergies (Unverified , 05/20/19) Past Medical History Medical History Rectal cancer, status post chemotherapy, radiation and colostomy, atrial fibrillation, permanent pacemaker, COPD, hypertension, dyslipidemia, PAD, diabetes mellitus, diastolic heart failure which is chronic in nature, chronic kidney disease stage III, of "tobacco abuse in the past, obesity, and abdominal hernias Surgical History y colostomy and permanent pacemaker placement Social History * Smoker: former Smoker Alcohol: Denies Drugs: denies A-FIB/CHADSVASC A-FIB History Current/History of A-Fib/PAF?: Yes Current PO Anticoag Therapy: Yes Review of Systems Constitutional: Denies: Chills, Fever, Malaise, Night Sweats, Weakness, Fatigue, Weight Loss, Lethargy, Other Eyes: Denies: Pain, Vision change ENT: Denies: Head Aches, Ear Pain, Dysphagia, Sinus Congestion, Post Nasal Drip, Sore Throat, Epistaxis, Other Symptoms Pulmonary: Reports: Dyspnea, Cough Cardiovascular: Reports: Orthopnea Gastrointestinal: Denies: Nausea, Vomiting, Abdominal Pain, Diarrhea, Constipation, Melena, Hematochezia, Other Symptoms Genitourinary: Denies: Dysuria, Frequency, Incontinence, Hematuria, Retention, Other Symptoms Hematologic: Denies: Bruising, Bleeding Excessively, Petecchia, Purpura, Enlarged Lymph Nodes, Other Hematologic Endocrine: Denies: Polydipsia, Polyphagia, Polyuria, Heat Intolerance, Cold Intolerance, Other Endocrine Sx Musculoskeletal: Denies: Neck Pain, Back Pain, Shoulder Pain, Arm Pain, Hand Pain, Leg Pain, Foot Pain, Joint Pain, Muscle Pain, Spasms, Other Symptoms Neurological: Denies: Weakness, Numbness, Incoordination, Change in speech, Confusion, Seizures, Other Symptoms Physical Examination General Exam: Positive: Alert, Cooperative Eye Exam: Positive: PERRLA, Conjunctiva & lids normal ENT Exam: Positive: Atraumatic, Mucous membr. moist/pink Neck Exam: Positive: Supple Chest Exam: Positive: Other (. Bilateral wheezing and rales audible) Heart Exam: Positive: Rate Normal, Irregular Rhythm, Normal S1, Normal S2 Abdomen Exam: Positive: Normal bowel sounds Extremity Exam: Positive: Normal pulses Skin Exam: Positive: Nl turgor and temperature Neuro Exam: Positive: Strength at 5/5 X4 ext, Cranial Nerves 3-12 NL Psych Exam: Positive: Mood NL, Oriented x 3 Vital Signs Vital Signs Date Time Temp Pulse Resp B/P (MAP) Pulse Ox O2 Delivery O2 Flow Rate FiO2 07/30/19 12:16 99 137/82 (100) 98 Nasal Cannula 3.0 07/30/19 11:15 96.7 28 Laboratory Data Labs 24H Laboratory Tests 2 07/30/19 11:26: Blood Gas Bicarbonate Standard 35.0, Venous Blood pH 7.277L, Venous Blood Partial Pressure CO2 91.5H, Venous Blood Partial Pressure O2 82.8H, Venous Blood Total Carbon Dioxide 44.5H, Venous Blood HCO3 41.7H, Venous Blood Oxygen Saturation 95.6H, Venous Blood Base Excess 11.2H 07/30/19 11:27: Immature Granulocyte % (Auto) 0.5, Neutrophils (%) (Auto) 74.3H, Lymphocytes (%) (Auto) 13.1L, Monocytes (%) (Auto) 9.0H, Eosinophils (%) (Auto) 2.4, Basophils (%) (Auto) 0.7, Neutrophils # (Auto) 4.4, Lymphocytes # (Auto) 0.8L, Monocytes # (Auto) 0.5, Eosinophils # (Auto) 0.1, Basophils # (Auto) 0.0, Nucleated Red Blood Cells % (auto) 0.0, Prothrombin Time 16.7H, Prothromb Time International Ratio 1.38, Anion Gap 3L, Glomerular Filtration Rate 52.0, Calcium Level 8.8, Total Bilirubin 0.5, Direct Bilirubin 0.2, Aspartate Amino Transf (AST/SGOT) 9, Alanine Aminotransferase (ALT/SGPT) 12, Alkaline Phosphatase 55, Total Creatine Kinase 39, Creatine Kinase MB 1.6, Creatine Kinase MB Relative Index 4.10H, Troponin I 0.15H, YV-Wlx-P-Type Natriuretic Peptide 7100H, Total Protein 6.8, Albumin 2.6L, Albumin/Globulin Ratio 0.62L 07/30/19 12:31: Coronavirus (COVID-19)(PCR) NEGATIVE CBC/BMP Laboratory Tests 07/30/19 11:27 Problems (1) Acute on chronic diastolic (congestive) heart failure Status: Acute Problem Text: 84 is old white male with multiple, multiple medical problems including atrial fibrillation, permanent pacemaker placement, COPD, hypertension, dyslipidemia, PAD, diabetes mellitus, diastolic heart failure, chronic kidney disease stage III, history of alcohol and tobacco abuse in the past, admitted with the chief complaint of increasing shortness of breath since last 2-3 days along with cough. Patient denies chest pain, dizziness, fever, or any phlegm production. Patient is a currently drowsy secondary to medications. He received on his way by EMS a good historian at the present time. History was obtained some from patient from EMS and from medical records as well as ER M.D. Bases. Chest x-ray consistent with interstitial edema, questionable right lower lobe. Obesity CBC, CMP normal with a BUN of 31, creatinine 1.39. BNP 7100, troponin 0.15. INR 1.38, COVID testing is pending Patient received a Lasix 80 mg IV Solu-Medrol 125 mg IV and a DuoNeb in ED Admit patient to PCU with playground monitor Saline lock Lasix 40 mg IV every 12 hours Solu-Medrol 80 mg IV every 12 hours DuoNeb every 4 hours and every 2 hours when necessary Nitropaste half inch to chest wall every 6 hours Intake and output Oxygen supplementation Keep head of bed elevated 45 Daily weights Repeat labs BNP and serial troponins Patient had echo done on 04/12/2019, which showed normal LV size with moderate LVH and no was related disease, EF was not mentioned in the report DVT prophylaxis, patient is already apaxiban Diet is consistent carbohydrate diet Bed rest with bedside commode Once patient is awake and responsive, will speak with him. I'll order DNR/DNI (2) COPD exacerbation Status: Acute Problem Text: History of chronic smoking and alcohol abuse in the past Solu-Medrol 80 mg IV every 8 hours DuoNeb every 4 hours and every 2 hours when necessary Has a questionable pneumonia on chest x-ray but patient is afebrile and white count is within normal range Consider multiple risk factors. Patient has been started on Rocephin and Zithromax to cover for community-acquired pneumonia , But will get his repeat chest x-ray PA and lateral. Once able to stand up and the pro-calcitonin , if pro calcitonin is negative, then will DC and IV antibiotics Oxygen support as needed. Keep pulse ox between 88 and 92% (3) Atrial fibrillation Status: Acute Problem Text: Ventricular rate is under control Continue beta blockers and anticoagulation as per home meds (4) CKD (chronic kidney disease) stage 3, GFR 30-59 ml/min Status: Chronic Problem Text: Patient's baseline creatinine is 1.1-1.2, right now his creatinine is 1.39 , Most likely secondary to acute on chronic diastolic heart failure and possible medical history of C KD stage III , We will closely monitor it. And a request nephrology consult with Dr. Santiago CBC, CMP in a.m. (5) Diabetes mellitus Status: Chronic Problem Text: Fingerstick blood sugar every before meals and at bedtime with coverage Continue home meds (6) Hypertension Status: Chronic Problem Text: Continue home meds Plan / VTE VTE Prophylaxis Ordered?: Yes SEBAS CATES MD July 30, 2019 13:56
[2019-07-30] MEDS ORDERED: cefTRIAXone SOD 1 GM in D5W MINI-BAG PLUS 50 ML IV ONE (14:00)
[2019-07-30] MEDS ORDERED: AZITHROMYCIN INJ 500 MG, VIAL MATE ADAPTER 1 EACH in D5W 250 ML IV ONE (14:00)
[2019-07-30 16:15] VITALS: BP 130/99
[2019-07-30] MEDS ORDERED: GLUCOSE 4GM CHEW TABLET PO PRN (17:15)
[2019-07-30] MEDS ORDERED: GLUCAGON INJ 1MG VIAL SC PRN (17:15)
[2019-07-30] MEDS ORDERED: DEXTROSE 50% 50 ML SYRINGE IV PRN (17:15)
[2019-07-30] MEDS: cefTRIAXone SOD 1 GM in D5W MINI-BAG PLUS 50 ML IV SCH (18:04)
[2019-07-30] MEDS: HumaLOG INSULIN (NovoLOG) PER UNIT SC SCH ×2 (18:04→20:24)
[2019-07-30] MEDS: AZITHROMYCIN INJ 500 MG, VIAL MATE ADAPTER 1 EACH in D5W 250 ML IV SCH (18:04)
[2019-07-30] MEDS: IPRATROPIUM 0.5MG/ALBUTEROL 2.5MG INH SOL UD 3ML (DUONEB)(J7620) NEB SCH (19:58)
[2019-07-30 20:00] VITALS: BP 125/83; O2SAT 92
[2019-07-30] MEDS: DOCUSATE SODIUM 100 MG CAP PO SCH (20:23)
[2019-07-30] MEDS: TAMSULOSIN 0.4 MG CAP PO SCH (20:23)
[2019-07-30] MEDS: PRAVASTATIN 20 MG TAB PO SCH (20:23)
[2019-07-30] MEDS: APIXABAN 5 MG TAB (ELIQUIS) PO SCH (20:24)
[2019-07-30] MEDS: methylPREDNISolone INJ 125 MG/2 ML VIAL (J2930) IV SCH (20:24)
--- NOTE | 2019-07-30 22:52 | ECGEPIP ---
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
[2019-07-31] VITALS (17 sets, daily range): BP systolic 110–151; BP diastolic 59–94; O2SAT 90–100
[2019-07-31] MEDS: IPRATROPIUM 0.5MG/ALBUTEROL 2.5MG INH SOL UD 3ML (DUONEB)(J7620) NEB SCH ×4 (00:31→19:13)
[2019-07-31] MEDS: NITROGLYCERIN 2% OINT 1 GM *U/D* PKT TOP SCH ×4 (00:54→18:16)
[2019-07-31] MEDS ORDERED: FUROSEMIDE 100MG/10ML VIAL (J1940) IV SCH (01:00)
[2019-07-31] MEDS: methylPREDNISolone INJ 125 MG/2 ML VIAL (J2930) IV SCH ×3 (04:29→20:48)
[2019-07-31 05:20] LABS: HEMATOCRIT 42.3 % (42.0-52.0); HEMOGLOBIN 12.3 g/dl (13.5-17.5); MEAN CORPUSCULAR HEMOGLOBIN 29.2 pg (27.0-33.0); MEAN CORPUSCULAR HGB CONC 29.1 g/dl (32.0-36.5); MEAN CORPUSCULAR VOLUME 100.5 fl (80.0-96.0); PLATELET COUNT, AUTOMATED 136 10^3/uL (150-450); RED BLOOD COUNT 4.21 10^6/uL (4.30-6.10); WHITE BLOOD COUNT 3.2 10^3/uL (4.0-10.0)
[2019-07-31 05:44] LABS: ALBUMIN 2.6 GM/DL (3.2-5.2); BILIRUBIN,TOTAL 0.4 MG/DL (0.2-1.0); CALCIUM LEVEL 8.9 MG/DL (8.8-10.2); CREATININE FOR GFR 1.37 MG/DL (0.70-1.30); GLOMERULAR FILTRATION RATE 52.8 (>35); MAGNESIUM LEVEL 2.2 MG/DL (1.8-2.4); POTASSIUM SERUM 3.9 MEQ/L (3.5-5.1); TOTAL PROTEIN 7.1 GM/DL (6.4-8.2)
[2019-07-31] MEDS: HumaLOG INSULIN (NovoLOG) PER UNIT SC SCH ×4 (09:26→20:49)
[2019-07-31] MEDS: DOCUSATE SODIUM 100 MG CAP PO SCH ×2 (09:27→20:49)
[2019-07-31] MEDS: PANTOPRAZOLE 40MG TAB (PROTONIX) PO SCH (09:27)
[2019-07-31] MEDS: APIXABAN 5 MG TAB (ELIQUIS) PO SCH ×2 (09:28→20:49)
[2019-07-31] MEDS: atenoloL 50 MG TAB PO SCH (09:30)
--- NOTE | 2019-07-31 10:43 | IPNPDOC ---
Subjective Date Seen The patient was seen on 07/31/19. Subjective Chief Complaint/HPI Patient is feeling slightly better with improved air exchange General: Denies: ROS Unobtainable, Chills, Night Sweats, Fatigue, Malaise, Normal Appetite, Other Symptoms Constitutional: Denies: Chills, Fever, Malaise, Night Sweats, Weakness, Fatigue, Weight Loss, Lethargy, Other Eyes: Denies: Pain, Vision change, Conjunctivae inflammation, Eyelid inflammation, Redness, Other ENT: Denies: Head Aches, Ear Pain, Dysphagia, Sinus Congestion, Post Nasal Drip, Sore Throat, Epistaxis, Other Symptoms Skin: Denies: Rash, Lesions, Jaundice, Bruising, Itching, Dry, Breakdown, Nail Changes, Other Pulmonary: Reports: Dyspnea Cardiovascular: Denies: Chest Pain, Palpitations, Orthopnea, Paroxysmal Noc. Dyspnea, Edema, Lt Headedness, Other Symptoms Gastrointestinal: Denies: Nausea, Vomiting, Abdominal Pain, Diarrhea, Constipation, Melena, Hematochezia, Other Symptoms Genitourinary: Denies: Dysuria, Frequency, Incontinence, Hematuria, Retention, Other Symptoms Hematologic: Denies: Bruising, Bleeding Excessively, Petecchia, Purpura, Enlarged Lymph Nodes, Other Hematologic Endocrine: Denies: Polydipsia, Polyphagia, Polyuria, Heat Intolerance, Cold Intolerance, Other Endocrine Sx Musculoskeletal: Denies: Neck Pain, Back Pain, Shoulder Pain, Arm Pain, Hand Pain, Leg Pain, Foot Pain, Joint Pain, Muscle Pain, Spasms, Other Symptoms Neurological: Denies: Weakness, Numbness, Incoordination, Change in speech, Confusion, Seizures, Other Symptoms Psych: Denies: Mood Normal, Anxiety, Depression, Memory Issues, Thoughts of Self Harm, Anger, Thoughts of Harming Other, Other Psych Objective Physical Examination General Exam: Positive: Alert, Cooperative Eye Exam: Positive: PERRLA, Conjunctiva & lids normal ENT Exam: Positive: Atraumatic, Mucous membr. moist/pink Neck Exam: Positive: Supple Chest Exam: Positive: Other (bilateral crackles at the bases audible. No more wheezing) Heart Exam: Positive: Rate Normal, Irregular Rhythm, Normal S1, Normal S2 Abdomen Exam: Positive: Normal bowel sounds, Soft Extremity Exam: Positive: Normal pulses Skin Exam: Positive: Nl turgor and temperature Neuro Exam: Positive: Strength at 5/5 X4 ext, Cranial Nerves 3-12 NL Psych Exam: Positive: Mood NL, Oriented x 3 Assessment /Plan Problems (1) Acute on chronic diastolic (congestive) heart failure Status: Acute Problem Text: Patient is a output was about 390 Will increase Lasix to 80 mg IV every 12 hours and monitor output Will probably DC Nitropaste as patient does not have respiratory distress or chest pain Continue oxygen supplement Out of bed as tolerated Physical therapy well today to get him out of bed Patient already had echo done recently which showed normal left ventricular size with moderate LVH Repeat BNP and troponin are pending Discussed with patient about DNR/DNI. He still wants to be a full code (2) COPD exacerbation Status: Acute Problem Text: Continue IV Solu-Medrol and nebulizer treatment as per orders Oxygen support I doubt patient has pneumonia as his WBC count is only 3.2 and on chest x-ray there is not clear-cut infiltrate, but waiting for pro-calcitonin once the level is available is negative. Will DC IV antibiotics Continue all home meds (3) CKD (chronic kidney disease) stage 3, GFR 30-59 ml/min Status: Chronic Problem Text: Patient's baseline creatinine is 1.1-1.2, right now his creatinine is 1.37 Most likely secondary to acute on chronic diastolic heart failure and possible medical history of C KD stage III We will closely monitor it. And a request nephrology consult with Dr. Santiago (4) Hypertension Status: Chronic Problem Text: Continue home meds (5) Atrial fibrillation Status: Chronic Problem Text: Ventricular rate is under well control. Continue home meds Condition did have as short run of SVT on the monitor, but without any symptoms. We'll continue monitoring on telemetry (6) Diabetes mellitus Status: Chronic Problem Text: Fingerstick blood sugar sugar every before meals and at bedtime with coverage Continue home meds Plan/VTE VTE Prophylaxis Ordered?: Yes VS, I&O, 24H, Fishbone Vital Signs/I&O Vital Signs Date Time Temp Pulse Resp B/P (MAP) Pulse Ox O2 Delivery O2 Flow Rate FiO2 07/31/19 09:30 107 132/59 07/31/19 07:56 97.9 18 90 Nasal Cannula 3.0 07/30/19 15:59 88 I&O- Last 24 Hours up to 6 AM 07/31/19 06:00 Intake Total 410 ml Output Total 800 ml Balance -390 ml Laboratory Data 24H LABS Laboratory Tests 2 07/30/19 11:26: Blood Gas Bicarbonate Standard 35.0, Venous Blood pH 7.277L, Venous Blood Partial Pressure CO2 91.5H, Venous Blood Partial Pressure O2 82.8H, Venous Blood Total Carbon Dioxide 44.5H, Venous Blood HCO3 41.7H, Venous Blood Oxygen Saturat ion 95.6H, Venous Blood Base Excess 11.2H 07/30/19 11:27: Immature Granulocyte % (Auto) 0.5, Neutrophils (%) (Auto) 74.3H, Lymphocytes (%) (Auto) 13.1L, Monocytes (%) (Auto) 9.0H, Eosinophils (%) (Auto) 2.4, Basophils (%) (Auto) 0.7, Neutrophils # (Auto) 4.4, Lymphocytes # (Auto) 0.8L, Monocytes # (Auto) 0.5, Eosinophils # (Auto) 0.1, Basophils # (Auto) 0.0, Nucleated Red Blood Cells % (auto) 0.0, Prothrombin Time 16.7H, Prothromb Time International Ratio 1.38, Anion Gap 3L, Glomerular Filtration Rate 52.0, Calcium Level 8.8, Total Bilirubin 0.5, Direct Bilirubin 0.2, Aspartate Amino Transf (AST/SGOT) 9, Alanine Aminotransferase (ALT/SGPT) 12, Alkaline Phosphatase 55, Total Creatine Kinase 39, Creatine Kinase MB 1.6, Creatine Kinase MB Relative Index 4.10H, Troponin I 0.15H, RU-Cds-H-Type Natriuretic Peptide 7100H, Total Protein 6.8, Albumin 2.6L, Albumin/Globulin Ratio 0.62L 07/30/19 12:31: Coronavirus (COVID-19)(PCR) NEGATIVE 07/30/19 17:32: Bedside Glucose (Misc Panel) 187H 07/30/19 20:13: Bedside Glucose (Misc Panel) 231H 07/31/19 04:22: Nucleated Red Blood Cells % (auto) 0.0, Anion Gap 1L, Glomerular Filtration Rate 52.8, Calcium Level 8.9, Magnesium Level 2.2, Total Bilirubin 0.4, Aspartate Amino Transf (AST/SGOT) 9, Alanine Aminotransferase (ALT/SGPT) 12, Alkaline Phosphatase 52, Total Protein 7.1, Albumin 2.6L, Albumin/Globulin Ratio 0.58L CBC/BMP Laboratory Tests 07/30/19 11:27 07/31/19 04:22 SEBAS CATES MD July 31, 2019 10:43
[2019-07-31] MEDS: FUROSEMIDE 100MG/10ML VIAL (J1940) IV SCH (13:04)
[2019-07-31] MEDS: cefTRIAXone SOD 1 GM in D5W MINI-BAG PLUS 50 ML IV SCH (18:07)
[2019-07-31] MEDS: AZITHROMYCIN INJ 500 MG, VIAL MATE ADAPTER 1 EACH in D5W 250 ML IV SCH (18:50)
[2019-07-31] MEDS: PRAVASTATIN 20 MG TAB PO SCH (20:49)
[2019-07-31] MEDS: TAMSULOSIN 0.4 MG CAP PO SCH (20:49)
[2019-08-01] VITALS (20 sets, daily range): BP systolic 120–150; BP diastolic 70–87; O2SAT 89–95
[2019-08-01] MEDS: FUROSEMIDE 100MG/10ML VIAL (J1940) IV SCH ×2 (00:36→12:56)
[2019-08-01] MEDS: NITROGLYCERIN 2% OINT 1 GM *U/D* PKT TOP SCH ×4 (00:37→17:40)
[2019-08-01] MEDS: IPRATROPIUM 0.5MG/ALBUTEROL 2.5MG INH SOL UD 3ML (DUONEB)(J7620) NEB SCH ×5 (03:28→23:46)
[2019-08-01] MEDS: methylPREDNISolone INJ 125 MG/2 ML VIAL (J2930) IV SCH ×3 (04:26→20:33)
[2019-08-01] MEDS: HumaLOG INSULIN (NovoLOG) PER UNIT SC SCH ×4 (08:26→20:54)
[2019-08-01] MEDS: PANTOPRAZOLE 40MG TAB (PROTONIX) PO SCH (08:27)
[2019-08-01] MEDS: APIXABAN 5 MG TAB (ELIQUIS) PO SCH ×2 (08:28→20:32)
[2019-08-01] MEDS: atenoloL 50 MG TAB PO SCH (08:29)
[2019-08-01] MEDS: DOCUSATE SODIUM 100 MG CAP PO SCH ×2 (08:29→20:32)
[2019-08-01 08:31] LABS: HEMATOCRIT 40.6 % (42.0-52.0); HEMOGLOBIN 11.9 g/dl (13.5-17.5); MEAN CORPUSCULAR HGB CONC 29.3 g/dl (32.0-36.5); PLATELET COUNT, AUTOMATED 136 10^3/uL (150-450); WHITE BLOOD COUNT 4.4 10^3/uL (4.0-10.0)
[2019-08-01 08:59] LABS: ALBUMIN 2.8 GM/DL (3.2-5.2); BILIRUBIN,TOTAL 0.4 MG/DL (0.2-1.0); CREATININE FOR GFR 1.6 MG/DL (0.70-1.30); GLOMERULAR FILTRATION RATE 44.2 (>35); POTASSIUM SERUM 3.8 MEQ/L (3.5-5.1); TOTAL PROTEIN 7.1 GM/DL (6.4-8.2)
[2019-08-01] MEDS ORDERED: guaiFENesin/CODEINE SYRUP 5 ML UDC PO PRN (11:30)
--- NOTE | 2019-08-01 11:36 | IPNPDOC ---
Subjective Date Seen The patient was seen on 08/01/19. Subjective Chief Complaint/HPI Patient feeling a little better, but this has increasing cough and unable to stop the coughing fits General: Denies: ROS Unobtainable, Chills, Night Sweats, Fatigue, Malaise, Normal Appetite, Other Symptoms Constitutional: Denies: Chills, Fever, Malaise, Night Sweats, Weakness, Fatigue, Weight Loss, Lethargy, Other Eyes: Denies: Pain, Vision change, Conjunctivae inflammation, Eyelid inflammation, Redness, Other ENT: Denies: Head Aches, Ear Pain, Dysphagia, Sinus Congestion, Post Nasal Drip, Sore Throat, Epistaxis, Other Symptoms Skin: Denies: Rash, Lesions, Jaundice, Bruising, Itching, Dry, Breakdown, Nail Changes, Other Pulmonary: Reports: Dyspnea, Cough Cardiovascular: Denies: Chest Pain, Palpitations, Orthopnea, Paroxysmal Noc. Dyspnea, Edema, Lt Headedness, Other Symptoms Gastrointestinal: Denies: Nausea, Vomiting, Abdominal Pain, Diarrhea, Constipation, Melena, Hematochezia, Other Symptoms Musculoskeletal: Denies: Neck Pain, Back Pain, Shoulder Pain, Arm Pain, Hand Pain, Leg Pain, Foot Pain, Joint Pain, Muscle Pain, Spasms, Other Symptoms Neurological: Denies: Weakness, Numbness, Incoordination, Change in speech, Confusion, Seizures, Other Symptoms Objective Physical Examination Neck Exam: Positive: Supple Chest Exam: Positive: Other (today, I can hear more wheezing bilaterally with expiratory as well as crackles bilaterally) Heart Exam: Positive: Rate Normal, Irregular Rhythm, Normal S1, Normal S2 Abdomen Exam: Positive: Normal bowel sounds, Soft Extremity Exam: Positive: Normal pulses Skin Exam: Positive: Nl turgor and temperature Neuro Exam: Positive: Strength at 5/5 X4 ext, Cranial Nerves 3-12 NL Assessment /Plan Problems (1) Acute on chronic diastolic (congestive) heart failure Status: Acute Problem Text: Patient responding very well to Lasix 80 mg IV every 12 hours His symptoms have significantly decreased, including shortness of breath, but is still complaining of cough His output was 1790. Last night, continue diuresis as per orders Continue oxygen supplement Repeat labs were ordered they're still pending Physical therapy to get patient out of bed Probably doesn't SC when necessary for cough Patient already had echo done recently which showed normal left ventricular size with moderate LVH Repeat levels again in a.m. Discussed with patient about DNR/DNI. He still wants to be a full code (2) COPD exacerbation Status: Acute Problem Text: Continue IV Solu-Medrol and nebulizer treatment as per orders Oxygen support Pro calcitonin was 0.03, IV antibiotics has been DC'd CPAP support at night and while he is taking naps Continue all home meds (3) CKD (chronic kidney disease) stage 3, GFR 30-59 ml/min Status: Chronic Problem Text: Patient's baseline creatinine is 1.1-1.2, right now his creatinine is 1.37 Most likely secondary to acute on chronic diastolic heart failure and possible medical history of C KD stage III We will closely monitor it. And a request nephrology consult with Dr. Santiago (4) Hypertension Status: Chronic Problem Text: Continue home meds (5) Atrial fibrillation Status: Chronic Problem Text: Ventricular rate is under well control. Continue home meds Condition did have as short run of SVT on the monitor, but without any symptoms. We'll continue monitoring on telemetry (6) Diabetes mellitus Status: Chronic Problem Text: Fingerstick blood sugar sugar every before meals and at bedtime with coverage Continue home meds Plan/VTE VTE Prophylaxis Ordered?: Yes VS, I&O, 24H, Fishbone Vital Signs/I&O Vital Signs Date Time Temp Pulse Resp B/P (MAP) Pulse Ox O2 Delivery O2 Flow Rate FiO2 08/01/19 10:00 92 Nasal Cannula 3.0 08/01/19 08:29 122 126/82 08/01/19 07:56 97.9 20 07/30/19 15:59 88 I&O- Last 24 Hours up to 6 AM 08/01/19 06:00 Intake Total 1895 ml Output Total 1300 ml Balance 595 ml Laboratory Data 24H LABS Laboratory Tests 2 07/31/19 11:59: Bedside Glucose (Misc Panel) 159H 07/31/19 16:52: Bedside Glucose (Misc Panel) 127H 07/31/19 20:38: Bedside Glucose (Misc Panel) 230H 08/01/19 07:25: Bedside Glucose (Misc Panel) 198H 08/01/19 08:00: Nucleated Red Blood Cells % (auto) 0.0, Anion Gap 4L, Glomerular Filtration Rate 44.2, Calcium Level 8.0L, Total Bilirubin 0.4, Aspartate Amino Transf (AST/SGOT) 9, Alanine Aminotransferase (ALT/SGPT) 12, Alkaline Phosphatase 50, SS-Eqa-O-Type Natriuretic Peptide 7933H, Total Protein 7.1, Albumin 2.8L, Albumin/Globulin Ratio 0.65L CBC/BMP Laboratory Tests 08/01/19 08:00 SEBAS CATES MD August 01, 2019 11:36
[2019-08-01] MEDS: cefTRIAXone SOD 1 GM in D5W MINI-BAG PLUS 50 ML IV SCH (16:41)
[2019-08-01] MEDS: AZITHROMYCIN INJ 500 MG, VIAL MATE ADAPTER 1 EACH in D5W 250 ML IV SCH (17:40)
[2019-08-01] MEDS: PRAVASTATIN 20 MG TAB PO SCH (20:32)
[2019-08-01] MEDS: TAMSULOSIN 0.4 MG CAP PO SCH (20:33)
[2019-08-01 21:08] LABS: VENOUS BASE EXCESS 14.3 (-2.0-2.0); VENOUS HCO3 43.2 MEQ/L (23.0-27.0); VENOUS O2 SATURATION 65.5 % (60.0-80.0); VENOUS PARTIAL PRESSURE CO2 77.7 mmHg (38.0-50.0); VENOUS PH 7.363 UNITS (7.330-7.430); VENOUS STANDARD HCO3 37.3 MEQ/L; VENOUS TOTAL CO2 45.6 MEQ/L (24.0-28.0)
[2019-08-02] VITALS (22 sets, daily range): BP systolic 128–174; BP diastolic 78–96; O2SAT 88–94
[2019-08-02] MEDS: NITROGLYCERIN 2% OINT 1 GM *U/D* PKT TOP SCH ×2 (00:18→05:08)
[2019-08-02] MEDS: FUROSEMIDE 100MG/10ML VIAL (J1940) IV SCH (00:19)
[2019-08-02] MEDS: methylPREDNISolone INJ 125 MG/2 ML VIAL (J2930) IV SCH (03:58)
[2019-08-02 04:29] LABS: HEMATOCRIT 40.1 % (42.0-52.0); HEMOGLOBIN 11.9 g/dl (13.5-17.5); LYMPH # 0.2 10^3/uL (1.5-5.0); LYMPH % 5.1 % (24.0-44.0); MEAN CORPUSCULAR HEMOGLOBIN 28.7 pg (27.0-33.0); MEAN CORPUSCULAR HGB CONC 29.7 g/dl (32.0-36.5); MEAN CORPUSCULAR VOLUME 96.9 fl (80.0-96.0); MONO # 0.2 10^3/uL (0.0-0.8); MONO % 4.3 % (0.0-5.0); NEUTROPHILS % 90.2 % (36.0-66.0); PLATELET COUNT, AUTOMATED 134 10^3/uL (150-450); RED BLOOD COUNT 4.14 10^6/uL (4.30-6.10); WHITE BLOOD COUNT 4.5 10^3/uL (4.0-10.0)
[2019-08-02 04:55] LABS: ALBUMIN 2.9 GM/DL (3.2-5.2); BILIRUBIN,TOTAL 0.5 MG/DL (0.2-1.0); CALCIUM LEVEL 8.6 MG/DL (8.8-10.2); CREATININE FOR GFR 1.35 MG/DL (0.70-1.30); GLOMERULAR FILTRATION RATE 53.7 (>35); POTASSIUM SERUM 3.8 MEQ/L (3.5-5.1); TOTAL PROTEIN 6.9 GM/DL (6.4-8.2)
[2019-08-02] MEDS: IPRATROPIUM 0.5MG/ALBUTEROL 2.5MG INH SOL UD 3ML (DUONEB)(J7620) NEB SCH ×3 (07:34→20:00)
[2019-08-02] MEDS: HumaLOG INSULIN (NovoLOG) PER UNIT SC SCH ×4 (07:57→20:28)
[2019-08-02] MEDS: DOCUSATE SODIUM 100 MG CAP PO SCH ×2 (07:57→20:29)
[2019-08-02] MEDS: PANTOPRAZOLE 40MG TAB (PROTONIX) PO SCH (07:58)
[2019-08-02] MEDS: APIXABAN 5 MG TAB (ELIQUIS) PO SCH ×2 (07:59→20:29)
[2019-08-02] MEDS: atenoloL 50 MG TAB PO SCH (08:00)
--- NOTE | 2019-08-02 11:31 | IPNPDOC ---
Subjective Date Seen The patient was seen on 08/02/19. Subjective Chief Complaint/HPI Patient feeling much better. His respiratory status is improved, on and off HE develops confusion, but this most likely secondary to his chronic respiratory and cardiac status. General: Denies: ROS Unobtainable, Chills, Night Sweats, Fatigue, Malaise, Normal Appetite, Other Symptoms Constitutional: Denies: Chills, Fever, Malaise, Night Sweats, Weakness, Fatigue, Weight Loss, Lethargy, Other Skin: Denies: Rash, Lesions, Jaundice, Bruising, Itching, Dry, Breakdown, Nail Changes, Other Pulmonary: Reports: Dyspnea Cardiovascular: Denies: Chest Pain, Palpitations, Orthopnea, Paroxysmal Noc. Dyspnea, Edema, Lt Headedness, Other Symptoms Gastrointestinal: Denies: Nausea, Vomiting, Abdominal Pain, Diarrhea, Const ipation, Melena, Hematochezia, Other Symptoms Musculoskeletal: Denies: Neck Pain, Back Pain, Shoulder Pain, Arm Pain, Hand Pain, Leg Pain, Foot Pain, Joint Pain, Muscle Pain, Spasms, Other Symptoms Neurological: Denies: Weakness, Numbness, Incoordination, Change in speech, Confusion, Seizures, Other Symptoms Objective Physical Examination General Exam: Positive: Alert, Cooperative Neck Exam: Positive: Supple Chest Exam: Positive: Other (today, I can hear more wheezing bilaterally with expiratory as well as crackles bilaterally) Heart Exam: Positive: Rate Normal, Irregular Rhythm, Normal S1, Normal S2 Abdomen Exam: Positive: Normal bowel sounds, Soft Extremity Exam: Positive: Normal pulses Skin Exam: Positive: Nl turgor and temperature Neuro Exam: Positive: Strength at 5/5 X4 ext, Cranial Nerves 3-12 NL Assessment /Plan Problems (1) Acute on chronic diastolic (congestive) heart failure Status: Acute Problem Text: Patient is a output today was -1100 . He states he is responding very well to IV Lasix , But will slowly decrease his Lasix to 80 mg IV daily from tomorrow to avoid the resident creatinine level His symptoms have significantly decreased, and he has been out of bed with the help of physical therapy . He does get confusion on and off but that's because of his chronic cardiac and pulmonary status that he is not agitated and cooperative and I avoid to give him any antipsychotics or benzodiazepines is his confusion resolves spontaneously. Continue his oxygen support as per orders and CPAP support at nighttime Patient already had echo done recently which showed normal left ventricular size with moderate LVH Overall patient is a poor prognosis. I had discussed DNR/DNI status with them, but so far he is alert reluctant to sign it. Continue supportive care (2) COPD exacerbation Status: Acute Problem Text: Will change IV Solu-Medrol to by mouth prednisone as of today Continue nebulizer treatments as per orders as patient seems to be improving . There is no evidence of pneumonia as his pro-calcitonin was negative. Hence, his IV antibiotics, Rocephin and Zithromax have been DC'd Continue oxygen support CPAP support at night and while he is taking naps Continue all home meds (3) CKD (chronic kidney disease) stage 3, GFR 30-59 ml/min Status: Chronic Problem Text: Patient's baseline creatinine is 1.1-1.2, right now his creatinine is 1.37 Most likely secondary to acute on chronic diastolic heart failure and possible medical history of C KD stage III Patient's creatinine today is 1.35 Will decrease Lasix to 80 mg IV 1, to avoid any renal dysfunction On it. Her renal functions (4) Hypertension Status: Chronic Problem Text: Continue home meds (5) Atrial fibrillation Status: Chronic Problem Text: Ventricular rate is under well control. Continue home meds Patient did had a few nonsustained episodes of V. tach, SVT but without any symptoms Continue apaxiban been and atenolol as per orders Monitor cardiac rhythm on telemetry (6) Diabetes mellitus Status: Chronic Problem Text: Fingerstick blood sugar sugar every before meals and at bedtime with coverage Continue home meds Plan/VTE VTE Prophylaxis Ordered?: Yes VS, I&O, 24H, Fishbone Vital Signs/I&O Vital Signs Date Time Temp Pulse Resp B/P (MAP) Pulse Ox O2 Delivery O2 Flow Rate FiO2 08/02/19 08:00 98.1 122 22 128/80 (96) 90 Nasal Cannula 2.0 07/30/19 15:59 88 I&O- Last 24 Hours up to 6 AM 08/02/19 06:00 Intake Total 1885 ml Output Total 2825 ml Balance -940 ml Laboratory Data 24H LABS Laboratory Tests 2 08/01/19 12:06: Bedside Glucose (Misc Panel) 132H 08/01/19 16:59: Bedside Glucose (Misc Panel) 205H 08/01/19 20:31: Bedside Glucose (Misc Panel) 218H 08/01/19 20:56: Blood Gas Bicarbonate Standard 37.3, Venous Blood pH 7.363, Venous Blood Partial Pressure CO2 77.7H, Venous Blood Partial Pressure O2 38.0, Venous Blood Total Carbon Dioxide 45.6H, Venous Blood HCO3 43.2H, Venous Blood Oxygen Saturation 65.5, Venous Blood Base Excess 14.3H 08/02/19 03:55: Immature Granulocyte % (Auto) 0.4, Neutrophils (%) (Auto) 90.2H, Lymphocytes (%) (Auto) 5.1L, Monocytes (%) (Auto) 4.3, Eosinophils (%) (Auto) 0.0, Basophils (%) (Auto) 0.0, Neutrophils # (Auto) 4.0, Lymphocytes # (Auto) 0.2L, Monocytes # (Auto) 0.2, Eosinophils # (Auto) 0.0, Basophils # (Auto) 0.0, Nucleated Red Blood Cells % (auto) 0.0, Anion Gap 5L, Glomerular Filtration Rate 53.7, Calcium Level 8.6L, Magnesium Level 2.0, Total Bilirubin 0.5, Aspartate Amino Transf ( AST/SGOT) 13, Alanine Aminotransferase (ALT/SGPT) 14, Alkaline Phosphatase 46, CA-Nvd-H-Type Natriuretic Peptide 7024H, Total Protein 6.9, Albumin 2.9L, Albumin/Globulin Ratio 0.73L CBC/BMP Laboratory Tests 08/02/19 03:55 SEBAS CATES MD August 02, 2019 11:31
[2019-08-02] MEDS ORDERED: RAMELTEON 8 MG TAB (ROZEREM) PO PRN (14:30)
[2019-08-02] MEDS: PRAVASTATIN 20 MG TAB PO SCH (20:28)
[2019-08-02] MEDS: TAMSULOSIN 0.4 MG CAP PO SCH (20:29)
[2019-08-03] VITALS (23 sets, daily range): BP systolic 67–205; BP diastolic 41–120; O2SAT 87–91
[2019-08-03] MEDS: IPRATROPIUM 0.5MG/ALBUTEROL 2.5MG INH SOL UD 3ML (DUONEB)(J7620) NEB SCH ×4 (01:32→19:43)
[2019-08-03] MEDS ORDERED: METOPROLOL 5 MG/5 ML VIAL IV STA (05:33)
[2019-08-03 05:46] LABS: ABG BASE EXCESS 9.4 (-2.0-2.0); ABG O2 SATURATION 95.8 % (95.0-99.0); ABG PARTIAL PRESSURE CO2 70.5 mmHg (35.0-45.0); ABG PARTIAL PRESSURE O2 86.4 mmHg (75.0-100.0); ABG STANDARD HCO3 33.1 MEQ/L (22.0-26.0); ABG TOTAL CO2 40.2 MEQ/L (23.0-31.0)
[2019-08-03 05:49] LABS: BASO % 0.1 % (0.0-1.0); EOS % 0.1 % (0.0-3.0); LYMPH # 1.3 10^3/uL (1.5-5.0); LYMPH % 15.9 % (24.0-44.0); MEAN CORPUSCULAR HEMOGLOBIN 28.5 pg (27.0-33.0); MEAN CORPUSCULAR HGB CONC 29.4 g/dl (32.0-36.5); MEAN CORPUSCULAR VOLUME 97.2 fl (80.0-96.0); MONO % 12.1 % (0.0-5.0); NEUTROPHILS # 5.8 10^3/uL (1.5-8.5); NEUTROPHILS % 71.4 % (36.0-66.0); PLATELET COUNT, AUTOMATED 129 10^3/uL (150-450); RED BLOOD COUNT 4.94 10^6/uL (4.30-6.10); WHITE BLOOD COUNT 8.1 10^3/uL (4.0-10.0)
[2019-08-03 05:50] LABS: HEMOGLOBIN 14.1 g/dl (13.5-17.5)
[2019-08-03 06:19] LABS: ALBUMIN 3.2 GM/DL (3.2-5.2); BILIRUBIN,TOTAL 0.7 MG/DL (0.2-1.0); CALCIUM LEVEL 8.6 MG/DL (8.8-10.2); CREATININE FOR GFR 1.45 MG/DL (0.70-1.30); GLOMERULAR FILTRATION RATE 49.5 (>35); POTASSIUM SERUM 4.1 MEQ/L (3.5-5.1); TOTAL PROTEIN 7.3 GM/DL (6.4-8.2)
--- NOTE | 2019-08-03 06:37 | IPNPDOC ---
Text Note Date of Service The patient was seen on 08/03/19. NOTE I was called to assess the patient at approximately 523am bc staff noted that he looked purple and was unresponsive. At the time he had removed his CPAP mask. Apparently he refused to wear the mask intermittently during the day. GLUCOSE He was initially unresponsive but when the BIPAP mask was placed on him, he begun to talk. He was A&Ox3, able to answer questions, but was intermittently confused. He was able to squeeze my hands and lift his arms in the air. Suspected Hypercapneic/Hypoxic Encephalopathy EKG showed Afib w HR it the low 100s Plan: clip facial hair then resume CPAP with intermittent breaks for food and sips of water / f/u ABG, CBC, CMP, lactic acid and troponin/ the day time team may consider Pulm consult to upgrade him to CPAP if he remains intermittently confused if when he is compliant with CPAP. VS,Fishbone, I+O VS, Fishbone, I+O Laboratory Tests 08/03/19 05:31 Vital Signs Date Time Temp Pulse Resp B/P (MAP) Pulse Ox O2 Delivery O2 Flow Rate FiO2 08/03/19 06:00 NIPPV (BIPAP/CPAP) 2.0 08/03/19 06:00 132/92 (105) 08/03/19 05:40 96 08/03/19 04:00 98.1 20 92 07/30/19 15:59 88 I&O- Last 24 Hours up to 6 AM 08/03/19 06:00 Intake Total 836 ml Output Total 1500 ml Balance -664 ml MORRO DALLAS MD August 03, 2019 06:37
[2019-08-03 08:31] LABS: ABG BASE EXCESS 13.3 (-2.0-2.0); ABG HCO3 38.9 MEQ/L (22.0-26.0); ABG O2 SATURATION 86.2 % (95.0-99.0); ABG PARTIAL PRESSURE CO2 52.4 mmHg (35.0-45.0); ABG PARTIAL PRESSURE O2 50.5 mmHg (75.0-100.0); ABG STANDARD HCO3 36.9 MEQ/L (22.0-26.0); ABG TOTAL CO2 40.6 MEQ/L (23.0-31.0); ABG pH (ARTERIAL) 7.489 UNITS (7.350-7.450)
[2019-08-03] MEDS: CHLORHEXIDINE GLUCONATE 0.12 % 15ML UDC (PERIDEX ORAL RINSE) MT SCH ×2 (09:00→21:12)
[2019-08-03] MEDS: DOCUSATE SODIUM 100 MG CAP PO SCH ×2 (09:00→21:00)
[2019-08-03] MEDS ORDERED: predniSONE 20 MG TAB PO SCH (09:00)
[2019-08-03] MEDS: FUROSEMIDE 100MG/10ML VIAL (J1940) IV SCH (09:00)
[2019-08-03 09:12] LABS: TROPONIN I 0.08 NG/ML (< 0.10)
--- NOTE | 2019-08-03 09:13 | REP ---
A PORTABLE CHEST X-RAY: Single view. HISTORY: CHF. COMPARISON STUDY: July 30, 2019. FINDINGS: A unipolar pacemaker is seen in the right heart. Cardiomegaly is again observed unchanged. A right internal jugular central venous line has been placed and terminates in the expected location of the superior vena cava. There is no visible pneumothorax. There is pleural opacity blunting the right lateral pleural angle consistent with small right effusion. Pulmonary vasculature is cephalized and there is some vascular congestion. No focal infiltrate. IMPRESSION: CHF pattern with cardiomegaly, vascular congestion and cephalization, and a small right pleural effusion. No pneumothorax seen. Electronically Signed by Aleksander Chavez MD 08/03/2019 12:01 P
[2019-08-03] MEDS ORDERED: LORazepam 2 MG/ML VIAL (J2060) IV STA (09:51)
[2019-08-03] MEDS ORDERED: hydrALAZINE 20MG/ML 1ML VIAL (J0360 PER 20MG) IV PRN (10:15)
[2019-08-03] MEDS ORDERED: levETIRAcetam INJection 1,000 MG in D5W 100 ML IV ONE (10:30)
[2019-08-03 11:23] LABS: ABG BASE EXCESS 13.3 (-2.0-2.0); ABG O2 SATURATION 93.3 % (95.0-99.0); ABG PARTIAL PRESSURE O2 73.9 mmHg (75.0-100.0); ABG TOTAL CO2 44.3 MEQ/L (23.0-31.0); ABG pH (ARTERIAL) 7.363 UNITS (7.350-7.450)
[2019-08-03 11:32] LABS: ABG PARTIAL PRESSURE CO2 75.5 mmHg (35.0-45.0)
--- NOTE | 2019-08-03 11:55 | REP ---
CT BRAIN WITHOUT CONTRAST: HISTORY: Question seizure. Rule out CVA. Comparison CT study of the brain is from August 07, 2009. CT FINDINGS: Digital preliminary smoking tobacco packer hand radiograph is unremarkable. Bone window settings demonstrate an intact bony calvarium. No bony destructive lesion. Visualized paranasal sinuses are clear. Minimal vascular calcification is noted in the distal internal carotids. There is dystrophic calcification in a curvilinear pattern in the left superior orbit which does not appear to have been present previously. No other intraorbital abnormality is seen. There is generalized volume loss intracranially. There is no evidence of intracranial hemorrhage. No mass, acute infarction, extra-axial fluid collection, or midline shift is seen. IMPRESSION: Generalized volume loss. Vascular calcification. No acute intracranial abnormality. Electronically Signed by Aleksander Chavez MD 08/03/2019 12:05 P
[2019-08-03] MEDS: HumaLOG INSULIN (NovoLOG) PER UNIT SC SCH ×2 (12:00→18:00)
[2019-08-03 12:34] LABS: MAGNESIUM LEVEL 2.4 MG/DL (1.8-2.4); PHOSPHORUS LEVEL 3.1 MG/DL (2.5-4.9)
[2019-08-03 13:18] LABS: ABG BASE EXCESS 13.3 (-2.0-2.0); ABG HCO3 41.6 MEQ/L (22.0-26.0); ABG O2 SATURATION 91.9 % (95.0-99.0); ABG PARTIAL PRESSURE O2 69.4 mmHg (75.0-100.0); ABG TOTAL CO2 43.8 MEQ/L (23.0-31.0); ABG pH (ARTERIAL) 7.377 UNITS (7.350-7.450)
[2019-08-03 13:21] LABS: ABG PARTIAL PRESSURE CO2 72.4 mmHg (35.0-45.0)
[2019-08-03] MEDS: PANTOPRAZOLE 40MG VIAL (C9113 PER 1) IV SCH (13:49)
[2019-08-03] MEDS: HEPARIN SOD (PORCINE) 5000UNITS/ML VIAL (J1644 PER 1000UNITS) SQ SCH ×2 (13:50→21:11)
--- NOTE | 2019-08-03 17:21 | IPNPDOC ---
Date Seen The patient was seen on 08/03/19. Progress Note SUBJECTIVE: The overnight team was called at 5:30 this a.m. due to increased altered mental status and unresponsiveness at times. He was pulling off his mask, CPAP. Blood pressure systolic was over 200 mmHg this AM. He was given 2.5 mg of Lopressor which improved BP. ABG showed pH 7.350, pCO2 70.5. It was noted that the patient was having left upper and left lower extremity rigidity, twitching. He was increasingly confused on examination by myself, agitated and not following most of our commands. His Blood pressure was unable to be assessed. Lactic acid returned elevated at 5.5, troponin negative. Due to concern for hypertensive emergency possibly occurring hemmer chainstitch, we could not rule out hemorrhage or stroke with concern of possible seizure activity. The patient was given 1 g Keppra IV and 1 mg IV Ativan. He was transferred to the ICU where he was later assessed by pulmonary. Repeat ABG showed pH 7.489, PCO2 52.4 and later PCO2 increasing to 75.5. The patient was placed on BiPAP and sent for CT of the head. CT was negative for acute intracranial abdomen modalities. Neurology was consult it early on this case and is suspicious of focal tonic motor seizures. Patient was started on Keppra twice a day. Blood pressure dropped after initiation of BiPAP early; however, increased along with in improvement of other vital signs. The patient remains on BiPAP and lethargic. The patient's and daughter were both updated on his current status in the ICU. OBJECTIVE: VITAL SIGNS: Please see below PHYSICAL EXAMINATION: CONSTITUTIONAL: Currently laying in bed, noncommunicative on Bipap EYES: PERRLA, EOM unable to be tested HENT, MOUTH: Normocephalic, atraumatic, moist mucous membranes NECK: SUPPLE, no JVD, no lymphadenopathy, no carotid bruit CV: Regular rate and rhythm, S1S2 normal, no murmurs/rubs/gallops RESPIRATORY: Decreased breath sounds bilaterally, no rales/rhonchi/wheezes GI: Colostomy bag RLQ, BS positive in 4 quadrants, soft, nontender, nondistended, no rebound or guarding, no organomegaly : Onel catheter in place MUSCULOSKELETAL: No cyanosis, clubbing, swelling, joint deformity, extremity edema INTEGUMENTARY: peripheral vascular changes in bilateral lower ext, healing ulcers at different stages in lower ext. no rashes NEUROLOGIC: Unable to test cranial Nerves II-XII are intact, no focal deficits seen; however, difficult to assess s/p medications. CURRENT MEDICATIONS: Please see below LABORATORY DATA: Please see below IMAGING: CT head:Generalized volume loss. Vascular calcification. No acute intracranial abnormality. CXR: CHF pattern with cardiomegaly, vascular congestion and cephalization, and a small right pleural effusion. No pneumothorax seen ASSESSMENT: 84 y/o M admitted to ICU with diagnosis of acute encephalopathy likely 2/2 to hypertensive emergency vs. focal tonic motor seizure, acute respiratory failure multifactorial to CHF exacerbation, COPD, obesity hypoventilation syndrome. PLAN: 1. Altered mental status likely 2/2 to hypertensive encephalopathy vs. focal tonic motor seizure (no prior seizure history, new) or both. Cannot rule out component of AMS due to steroid administration. S/p 1 gm keppra and 1 mg ativan this AM. Ensure BP control, keppra 750 mg IV BID, hydralazine PRN. Neuro checks Q2 hrs. As per neurology who is consulted, avoid ativan use again if possible. It is preferred to load with dilantin if seizure activity returns. 2. Acute respiratory failure likely multifactorial to acute on chronic CHF exacerbation, obesity hypoventilation syndrome and COPD exacerbation. BNP increased, trop neg despite being -1 L/24 hrs. Hypoxia also worsens during "seizure" activity earlier. Current setting BIPAP: FiO2 40%, IPAP 18, rate 14, EPAP 6. ABG above. C/w with seizure control, BIPAP, duoneb ATC, albuterol PRN, lasix, daily wts, close monitoring of I&O's. Stopped steroids today, consider restarting if respiratory status worsened. Pulmonary consulted. 3. Hypertensive emergency. BP better controlled after agitation resolved. Hydralazine PRN. 4. CKD Stage III. Cr near baseline. Daily labs. 5. Atrial fibrillation, chronic. Controlled. C/w apixiban. Stopped PO BB, resume when taking oral. Can add IV lopressor if needed. On tele. 6. Diabetes mellitus. NPO, Blood sugar checks Q6 hrs. 7. DVT px. Heparin SC Q8 hrs. DISPOSITION: Admitted as inpatient to ICU. Discussed case in detail with his and daughter both. Remains on BIPAP with neurology and pulmonary consulted to follow. TOTAL AMOUNT OF ICU TIME SPENT ON PATIENT: 45 MINS VS, I&O, 24H, Fishbone Vital Signs/I&O Vital Signs Date Time Temp Pulse Resp B/P (MAP) Pulse Ox O2 Delivery O2 Flow Rate FiO2 08/03/19 16:00 98.6 82 13 126/79 (95) 96 NIPPV (BIPAP/CPAP) 40 08/03/19 10:17 2.0 I&O- Last 24 Hours up to 6 AM 08/03/19 06:00 Intake Total 956 ml Output Total 1500 ml Balance -544 ml Laboratory Data 24H LABS Laboratory Tests 2 08/02/19 17:49: Bedside Glucose (Misc Panel) 143H 08/02/19 20:27: Bedside Glucose (Misc Panel) 142H 08/03/19 05:26: Bedside Glucose (Misc Panel) 139H 08/03/19 05:30: Blood Gas Bicarbonate Standard 33.1H, Arterial Blood pH 7.350, Arterial Blood Partial Pressure CO2 70.5*H, Arterial Blood Partial Pressure O2 86.4, Arterial Blood Total CO2 40.2H, Arterial Blood HCO3 38.0H, Arterial Blood Base Excess 9.4H, Arterial Blood Oxygen Saturation 95.8 08/03/19 05:31: Immature Granulocyte % (Auto) 0.4, Neutrophils (%) (Auto) 71.4H, Lymphocytes (%) (Auto) 15.9L, Monocytes (%) (Auto) 12.1H, Eosinophils (%) (Auto) 0.1, Basophils (%) (Auto) 0.1, Neutrophils # (Auto) 5.8, Lymphocytes # (Auto) 1.3L, Monocytes # (Auto) 1.0H, Eosinophils # (Auto) 0.0, Basophils # (Auto) 0.0, Nucleated Red Blood Cells % (auto) 0.0, Anion Gap 8, Glomerular Filtration Rate 49.5, Lactic Acid Level 5.5*H, Calcium Level 8.6L, Total Bilirubin 0.7, Aspartate Amino Transf (AST/SGOT) 18, Alanine Aminotransferase (ALT/SGPT) 22, Alkaline Phosphatase 50, Troponin I 0.08, Total Protein 7.3, Albumin 3.2, Albumin/Globulin Ratio 0.78L 08/03/19 08:22: Blood Gas Bicarbonate Standard 36.9H, Arterial Blood pH 7.489H, Arterial Blood Partial Pressure CO2 52.4H, Arterial Blood Partial Pressure O2 50.5L, Arterial Blood Total CO2 40.6H, Arterial Blood HCO3 38.9H, Arterial Blood Base Excess 13.3H, Arterial Blood Oxygen Saturation 86.2L 08/03/19 08:31: Lactic Acid Level 2.9*H, Troponin I 0.08, Phosphorus Level 3.1, Magnesium Level 2.4, IE-Joy-K-Type Natriuretic Peptide 9105H 08/03/19 10:56: Blood Gas Bicarbonate Standard 37.0H, Arterial Blood pH 7.363, Arterial Blood Partial Pressure CO2 75.5*H, Arterial Blood Partial Pressure O2 73.9L, Arterial Blood Total CO2 44.3H, Arterial Blood HCO3 42.0H, Arterial Blood Base Excess 13.3H, Arterial Blood Oxygen Saturation 93.3L 08/03/19 12:11: Bedside Glucose (Misc Panel) 144H 08/03/19 12:54: Lactic Acid Followup at 4 Hours 1.9 08/03/19 13:03: Blood Gas Bicarbonate Standard 37.0H, Arterial Blood pH 7.377, Arterial Blood Partial Pressure CO2 72.4*H, Arterial Blood Partial Pressure O2 69.4L, Arterial Blood Total CO2 43.8H, Arterial Blood HCO3 41.6H, Arterial Blood Base Excess 13.3H, Arterial Blood Oxygen Saturation 91.9L CBC/BMP Laboratory Tests 08/03/19 05:31 Current Medications Current Medications Medications (Trade) Dose Ordered Sig/Yao Route PRN Reason Start Time Stop Time Status Last Admin Dose Admin Acetaminophen (Tylenol Tab) 650 mg Q4H PRN PO PAIN OR FEVER 07/30/19 13:30 Al Hydrox/Mg Hydrox/Simethicone (Mylanta) 30 ml DAILY PRN PO DYSPEPSIA 07/30/19 13:30 Albuterol Sulfate (Proventil Neb) 2.5 mg Q1HP PRN NEB SHORTNESS OF BREATH 07/30/19 13:30 Albuterol/ Ipratropium (Combivent Respimat 100-20mcg) 1 puff Q4H INH 07/30/19 11:30 07/30/19 23:48 DC 07/30/19 19:58 Albuterol/ Ipratropium (Duoneb (Ipr 0.5mg/Alb 2.5mg)) 3 ml RQ6H NEB 07/30/19 20:00 08/03/19 13:18 Apixaban (Eliquis) 5 mg BID PO 07/30/19 21:00 08/03/19 10:19 DC 08/02/19 20:29 Atenolol (Tenormin) 50 mg DAILY PO 07/31/19 09:00 08/03/19 10:19 DC 08/02/19 08:00 Azithromycin 500 mg/IV Miscellaneous Supplies 1 each/ Dextrose 255 ml @ 255 mls/hr Q24H IV 07/30/19 18:00 08/02/19 11:19 DC 08/01/19 17:40 Ceftriaxone Sodium 1 gm/ Dextrose 50 ml @ 100 mls/hr Q24H IV 07/30/19 17:00 08/02/19 11:19 DC 08/01/19 16:41 Chlorhexidine Gluconate (Peridex Oral Rinse) SWAB/BRUSH ORAL CAVITY BID MT 08/03/19 09:00 Codeine Phosphate/ Guaifenesin (Robitussin Ac) 5 ml Q4HP PRN PO COUGH 08/01/19 11:30 08/02/19 12:18 Dextrose (Dextrose 50%) 25 ml ASDIRECTED PRN IV SEE LABEL COMMENTS 07/30/19 17:15 Docusate Sodium (Colace) 100 mg BID PO 07/30/19 21:00 08/02/19 20:29 Furosemide (LASIX injection) 40 mg Q12H IV 07/31/19 01:00 07/31/19 10:37 DC 07/31/19 00:53 Furosemide (LASIX injection) 80 mg DAILY IV 08/03/19 09:00 Furosemide (LASIX injection) 80 mg Q12H IV 07/31/19 13:00 08/02/19 11:21 DC 08/02/19 00:19 Glucagon (Glucagon) 1 mg ASDIRECTED PRN SC SEE LABEL COMMENTS 07/30/19 17:15 Glucose (Glucose) 16 GM ASDIRECTED PRN PO SEE LABEL COMMENTS 07/30/19 17:15 Heparin Sodium (Porcine) (Heparin) 5,000 units Q12H SC 07/30/19 13:30 07/30/19 13:36 DC Heparin Sodium (Porcine) (Heparin) 5,000 units Q8H SQ 08/03/19 14:00 08/03/19 13:50 Home Med (Med Rec Complete!) ASDIRECTED XX 07/30/19 13:00 07/30/19 12:56 DC Hydralazine HCl (Apresoline) 10 mg Q8HP PRN IV For BP systolic >180 mmHg 08/03/19 10:15 Insulin Human Lispro (HumaLOG INSULIN) SEE PROTOCOL TABLE AC RI 07/30/19 17:30 08/03/19 10:36 DC 08/02/19 17:54 Insulin Human Lispro (HumaLOG INSULIN) SEE PROTOCOL TABLE Q6H SC 08/03/19 12:00 Insulin Human Lispro (HumaLOG INSULIN) SEE PROTOCOL TABLE QHS RI 07/30/19 21:00 08/03/19 10:36 DC Levetiracetam 750 mg/Dextrose 107.5 ml @ 430 mls/hr Q12H IV 08/03/19 21:00 Lorazepam (Ativan) 1 mg STAT STAT IV 08/03/19 09:51 08/03/19 09:55 DC 08/03/19 10:00 Magnesium Hydroxide (Milk Of Magnesia) 30 ml DAILY PRN PO CONSTIPATION 07/30/19 13:30 Methylprednisolone (SOLUmedrol) 80 mg Q8H IV 07/30/19 20:00 08/02/19 11:32 DC 08/02/19 03:58 Metoprolol Tartrate (Lopressor) 2.5 mg STAT STAT IV 08/03/19 05:33 08/03/19 05:35 DC 08/03/19 05:40 Nitroglycerin (Nitrobid 2%) 0.5 INCH Q6H TOP 07/30/19 12:00 08/02/19 11:20 DC 08/02/19 05:08 Pantoprazole Sodium (Protonix) 40 mg DAILY PO 07/31/19 09:00 08/03/19 10:19 DC 08/02/19 07:58 Pantoprazole Sodium (Protonix) 40 mg Q24H IV 08/03/19 09:00 08/03/19 13:49 Pravastatin Sodium (Pravachol) 40 mg QHS PO 07/30/19 21:00 08/02/19 20:28 Prednisone (Deltasone) 40 mg DAILY PO 08/03/19 09:00 08/03/19 10:19 DC Ramelteon (Rozerem) 8 mg QHS PRN PO INSOMNIA 08/02/19 14:30 08/03/19 11:52 DC 08/02/19 14:54 Tamsulosin HCl (Flomax) 0.4 mg QHS PO 07/30/19 21:00 08/02/19 20:29 Allergies Coded Allergies: No Known Allergies (Unverified , 05/20/19) Earnestine Crook MD August 03, 2019 17:21
[2019-08-03 17:48] LABS: ABG BASE EXCESS 13.3 (-2.0-2.0); ABG HCO3 41.1 MEQ/L (22.0-26.0); ABG O2 SATURATION 96.3 % (95.0-99.0); ABG STANDARD HCO3 37.1 MEQ/L (22.0-26.0); ABG TOTAL CO2 43.2 MEQ/L (23.0-31.0); ABG pH (ARTERIAL) 7.401 UNITS (7.350-7.450)
[2019-08-03 17:55] LABS: ABG PARTIAL PRESSURE CO2 67.7 mmHg (35.0-45.0)
[2019-08-03] MEDS ORDERED: FUROSEMIDE 40MG/4ML VIAL (J1940) IV ONE (21:00)
[2019-08-03] MEDS: levETIRAcetam INJection 750 MG in D5W 100 ML IV SCH (21:11)
--- NOTE | 2019-08-03 23:25 | ECGEPIP ---
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 Atrial fibrillation is not new. Electronically Signed on 08-03-2019 23:25:07 EDT by Maximo Horvath
--- NOTE | 2019-08-03 23:30 | ECGEPIP ---
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 Heart rate is now slower and PVCs are noted Electronically Signed on 08-03-2019 23:29:43 EDT by Maximo Horvath
[2019-08-04] VITALS (10 sets, daily range): BP systolic 100–142; BP diastolic 55–84; O2SAT 95–96
[2019-08-04] MEDS: HumaLOG INSULIN (NovoLOG) PER UNIT SC SCH ×5 (00:14→20:19)
[2019-08-04] MEDS: IPRATROPIUM 0.5MG/ALBUTEROL 2.5MG INH SOL UD 3ML (DUONEB)(J7620) NEB SCH ×4 (00:55→19:47)
[2019-08-04 04:44] LABS: HEMATOCRIT 39.4 % (42.0-52.0); HEMOGLOBIN 12.3 g/dl (13.5-17.5); MEAN CORPUSCULAR HEMOGLOBIN 29.3 pg (27.0-33.0); MEAN CORPUSCULAR HGB CONC 31.2 g/dl (32.0-36.5); MEAN CORPUSCULAR VOLUME 93.8 fl (80.0-96.0); PLATELET COUNT, AUTOMATED 103 10^3/uL (150-450); WHITE BLOOD COUNT 3.8 10^3/uL (4.0-10.0)
[2019-08-04 05:33] LABS: ALT/SGPT 23 U/L (12-78); BLOOD UREA NITROGEN 41 MG/DL (7-18); CARBON DIOXIDE LEVEL 48 MEQ/L (21-32); CHLORIDE LEVEL 96 MEQ/L (98-107); CREATININE FOR GFR 1.19 MG/DL (0.70-1.30); GLOMERULAR FILTRATION RATE > 60.0 (>35); GLUCOSE, FASTING 85 MG/DL (70-100); POTASSIUM SERUM 3.4 MEQ/L (3.5-5.1); SODIUM LEVEL 144 MEQ/L (136-145)
[2019-08-04 05:34] LABS: ALBUMIN 2.4 GM/DL (3.2-5.2); BILIRUBIN,TOTAL 0.8 MG/DL (0.2-1.0); CHOLESTEROL LEVEL 95 MG/DL (< 200); CPK CREATINE PHOSPHOKINASE 76 U/L (39-308); LDH LACTATE DEHYDROGENASE 174 U/L (87-241); TOTAL PROTEIN 5.5 GM/DL (6.4-8.2); TRIGLYCERIDES LEVEL 75 MG/DL (<150)
[2019-08-04 06:08] LABS: ABG BASE EXCESS 18.4 (-2.0-2.0); ABG HCO3 45.1 MEQ/L (22.0-26.0); ABG O2 SATURATION 96.8 % (95.0-99.0); ABG PARTIAL PRESSURE O2 84.7 mmHg (75.0-100.0); ABG STANDARD HCO3 42.5 MEQ/L (22.0-26.0); ABG pH (ARTERIAL) 7.478 UNITS (7.350-7.450)
[2019-08-04 06:11] LABS: ABG PARTIAL PRESSURE CO2 62.2 mmHg (35.0-45.0)
[2019-08-04] MEDS: HEPARIN SOD (PORCINE) 5000UNITS/ML VIAL (J1644 PER 1000UNITS) SQ SCH (06:40)
[2019-08-04] MEDS: guaiFENesin ER 600 MG TAB PO SCH ×2 (09:00→20:18)
[2019-08-04] MEDS: DOCUSATE SODIUM 100 MG CAP PO SCH ×2 (09:18→20:18)
[2019-08-04] MEDS: FUROSEMIDE 100MG/10ML VIAL (J1940) IV SCH (09:18)
[2019-08-04] MEDS: CHLORHEXIDINE GLUCONATE 0.12 % 15ML UDC (PERIDEX ORAL RINSE) MT SCH ×2 (09:18→20:18)
[2019-08-04] MEDS: PANTOPRAZOLE 40MG VIAL (C9113 PER 1) IV SCH (09:18)
[2019-08-04] MEDS: levETIRAcetam INJection 750 MG in D5W 100 ML IV SCH ×2 (09:18→20:20)
--- NOTE | 2019-08-04 12:14 | IPN ---
DATE OF SERVICE: 08/03/2019 CRITICAL CARE NOTE: I was called to evaluate this 84-year-old male for a decline in level of consciousness. He was admitted on 07/30/2019 with dyspnea felt related to heart failure and obstructive lung disease. He has a significant past medical history, remote rectal cancer treated with chemotherapy and radiation. He had a colostomy performed. He has atrial fibrillation. He required a pacemaker for sick sinus syndrome. He has obstructive lung disease related to remote smoking, hypertension, peripheral vascular disease, diabetes mellitus, chronic kidney disease. Review of recent records indicate that he has an echocardiogram performed in March showing left ventricular hypertrophy but the echo was of poor quality. The patient began to display rigidity with a respiratory variability and what appeared to nursing to be seizure activity of his extremities. His oxygen saturation became low and he placed on continuous positive airway pressure (CPAP). On my arrival, he had been given Ativan and was poorly responsive and bradypneic. His temperature is 100, pulse rate 103, respirations 10-16 and ineffective, blood pressure was 95/63. HEENT: His pupils are small, reactivity is difficult to determine. Oral and nasal mucosa are dry. His neck is supple. There is no meningismus. Heart sounds are irregularly irregular. Breath sounds are diminished and dull in the right base. Abdomen is soft with an ostomy in the right lower quadrant and surgical cicatrix well-healed in the left lower quadrant. Bowel sounds are appreciable. His extremities show scaly dry skin and are edematous. DIAGNOSTIC STUDIES: His white cell count is 8.1, hemoglobin 14.1, hematocrit 48.0, platelet count is down 129,000. Differential white cell count shows 71% neutrophils, no bands. His electrolytes, sodium is 140, potassium 4.1, chloride 94, CO2 38, BUN 50, creatinine 1.45, glucose 149. His brain natriuretic peptide is 9005. Lactic acid earlier was 5.5, then 2.9, most recently 1.9. Phosphorus is 3.1. His magnesium is 2.4. Troponin was 0.08. An arterial blood gas performed earlier showed a pH of 7.48, pCO2 52, pO2 of 50. At 11 o'clock the pH was 7.36, pCO2 75, pO2 73. Chest x-ray shows cardiomegaly and interstitial edema of the right effusion. The primary problem requiring critical attention is: 1. Acute hypoxic and hypercarbic respiratory failure. The patient has indicated previously that he does not wish to be intubated, mechanically ventilated. We will attempt resuscitation with non-noninvasive ventilation delivered via mask and recheck arterial blood gases. 2. Pulmonary edema. I agree with diuresis and will target a negative fluid balance over the next 24-48 hours. 3. Acute neurologic decline of unclear etiology, possibly CVA, possibly seizures. The patient has been given Keppra and we will arrange for a STAT CT scan of his head. 4. Deep venous thrombosis (DVT) prophylaxis. We will start sequential hose and subcutaneous heparin. 5. Ulcer prophylaxis. The patient is receiving Protonix. The patient's condition is quite critical. Prognosis is guarded to poor. 1 hour and 47 minutes was spent in the provision of bedside critical care and coordination in excess of procedure time.
--- NOTE | 2019-08-04 14:59 | IPN ---
DATE OF SERVICE: 08/04/2019 Mr. Gore was seen and examined this morning. He is currently hospital day #5. He was placed on non-invasive ventilation early this morning, so is day #0. He currently has no antibiotic on board. He was seen and examined this morning at bedsides rounds. He was not in the most pleasant mood this morning and did not want to participate in the examination. He took off his bilateral positive airway pressure (BiPAP) and stated that he would like to sleep with his nasal cannula and just go back to sleep. No other overnight events were reported by nursing. He got Lasix 40 mg times one overnight, which he tolerated very well. He diuresed relatively 3 liters and has a net negative of 2712 in the last 24 hours. He is also down 2 kg. No overnight telemetry changes were noted, as well. PHYSICAL EXAMINATION: VITAL SIGNS: Temperature 98.5, pulse 81, respiration 19, blood pressure of 142/84 (103), pulse oximetry 96% on 2 liters of nasal cannula. INTAKE AND OUTPUT (I AND O): Intake total 338 mL. Output total 3050 mL. Balance of negative 2712 mL. His weight this morning is 115.6 kg. GENERAL: This is an unpleasant 84-year-old male who does not appear in any acute distress. Was not willingly answering questions this morning. HEENT: Normocephalic, atraumatic. Very poor dentition with nasal cannula in place. No jugular venous distention (JVD). No lymphadenopathy noted. Does not have the best hygiene. CARDIOVASCULAR: Irregularly irregular rate controlled. No audible murmurs, rubs, or gallops are noted on this examination. RESPIRATION: Diminished breath sounds bilaterally due to the patient is not participating with deep inhalations but no audible wheezing or rhonchi is appreciated. ABDOMEN: Colostomy bag noted on the right lower quadrant. Positive bowel sounds in all four quadrants. Slightly distended but nontender with no rebound and no guarded appreciated. He has an obese abdomen with a body mass index (BMI) of 39.9. GENITOURINARY (): Noel in place. NEUROLOGIC: No involuntary movements appreciated. The patient did not participate in a neurological examination this morning. He is alert to person and place. Will not tell me time willingly. PSYCHIATRIC: Unpleasant gentleman this morning. LABORATORIES: WBC 3.8, hemoglobin 12.3, hematocrit 39.4, platelets 103. Blood gas this morning: pH of 7.478, PCO2 of 62.0, pO2 of 84.7, HCO3 45.1. Chemistry: Sodium 144, potassium 3.4, chloride 96, carbon dioxide 48, anion gap is 0, BUN 41, creatinine 1.19, fasting glucose 85, calcium 8.0, AST 20, ALT 23, alkaline phosphatase 40, lactate dehydrogenase 174, total creatinine kinase 76. Head CT: Negative for any acute abnormalities. ASSESSMENT AND PLAN: This is an 84-year-old male with multiple comorbidities, which are significant for chronic obstructive pulmonary disease (COPD), obstructive sleep apnea (LIANNA), noncompliant with continuous positive airway pressure (CPAP), congestive heart failure, alcohol abuse with alcohol withdrawal seizures, who presented to our emergency room (ER) for shortness of breath. 1. Acute hypoxic hypercarbic respiratory failure. This is possibly secondary to the patient being noncompliant with his CPAP for his LIANNA and his COPD exacerbation, as well as congestive heart failure (CHF) exacerbation. Yesterday, he was given one-time dose of 40 of Lasix overnight, which he tolerated very well; and this morning, we have started 80 mg of Lasix daily. He has been placed on BiPAP as non-invasive ventilation. We will titrate his oxygen to maintain between 88% and 92%. We tried to review his chart to see his old sleep study, but it could not be found. Once the patient is a little more cooperative during our examination, we will ask what his CPAP settings are at home so he can be placed on it while sleeping. Until then, will keep the oxygen on. 2. Altered mental status. Unsure if this is a metabolic encephalopathy versus hypercarbic state. CT of the head was negative for any acute abnormalities. Electroencephalogram (EEG) has been ordered. Neurology has been consulted. It was reported that he was having involuntary movements yesterday, as well as having hypoxic episodes. He probably was having hypercarbic that was causing hypercarbic tic and was given Ativan yesterday due to agitation which probably exacerbated these symptoms. He is not having any involuntary movements today. He also does have a history of alcohol abuse with also alcohol withdrawal. May consider putting on a Clinical [place] Withdrawal Assessment (CIWA) protocol. Might benefit from it. I do not know how many days he is out from drinking. He is greater than 5 days into admission and has not had any activity minus yesterdays, so can monitor. 3. Chronic kidney disease (CKD) stage III. BUN and creatinine actually improved today with the creatinine being at 1.19 despite being diuresed, which states that it is probably prerenal azotemia with good cardiac perfusion. Will continue to monitor with I and O and basic metabolic profiles (BMPs). 4. Atrial fibrillation. He is currently rate controlled. Continue with apixaban for anticoagulation. Continue with the Eliquis. Originally, it was stopped yesterday because of a possible cerebrovascular accident (CVA), and he had a CT of the head which was negative for any acute abnormalities, so we can resume his home Eliquis for anticoagulation for his atrial fibrillation (AFib). 5. Diabetes mellitus. Currently on insulin sliding scale and nothing by mouth. Once he is transitioned to a diet, can just change his coverage to before meals and nightly. 6. Deep venous thrombosis (DVT) prophylaxis. Eliquis 5 mg twice a day. 7. Gastrointestinal (GI) prophylaxis. He currently has Protonix IV on board. He does have a history of gastroesophageal reflux disease (GERD), so upon discharge, can switch him back to his by mouth dose. Dr. Juarez Addendum: The patient is critically ill and prognosis is guarded. The etiology of his respiratory failure is multifactorial. We will continue supportive care and close monitoring. The case was discussed with the primary care team and ICU nursing. One hour and thirty seven minutes was spent in the provision of bedside critical care and coordination in excess of any procedure time. MARLA
--- NOTE | 2019-08-04 18:14 | IPNPDOC ---
Date Seen The patient was seen on 08/04/19. Progress Note SUBJECTIVE: The patient was transitioned off of BiPAP today and onto nasal cannula. He was awake alert and oriented, but did not remember events of yesterday. EEG today, results pending. Diet started today as well. The patient denies chest pain, increased shortness of breath but does complain of having increased chest congestion that he cannot cough up. OBJECTIVE: VITAL SIGNS: Please see below PHYSICAL EXAMINATION: CONSTITUTIONAL: Currently sitting up at bedside chair, communicating well, becomes short of breath with extended conversation EYES: PERRLA, EOM unable to be tested HENT, MOUTH: Normocephalic, atraumatic, moist mucous membranes, poor dentition NECK: SUPPLE, no JVD, no lymphadenopathy, no carotid bruit CV: Regular rate and rhythm, S1S2 normal, no murmurs/rubs/gallops RESPIRATORY: Decreased breath sounds bilaterally, crackles in bilateral lung bases. No wheezing GI: Colostomy bag RLQ, BS positive in 4 quadrants, soft, nontender, nondistended, no rebound or guarding, no organomegaly : Noel catheter in place MUSCULOSKELETAL: No cyanosis, clubbing, swelling, joint deformity, extremity edema INTEGUMENTARY: peripheral vascular changes in bilateral lower ext, healing ulcers at different stages in lower ext. no rashes NEUROLOGIC: cranial Nerves II-XII are intact, no focal deficits seen. Strength 4 out of 5 in upper and lower extremities bilaterally, no sensory or motor deficits noted CURRENT MEDICATIONS: Please see below LABORATORY DATA: Please see below IMAGING: EEG, pending results congestion and cephalization, and a small right pleural effusion. No pneumothorax seen ASSESSMENT: 84 y/o M admitted to ICU with diagnosis of acute encephalopathy like ly 2/2 to hypertensive emergency vs. focal tonic motor seizure, acute respiratory failure multifactorial to CHF exacerbation, COPD, obesity hypoventilation syndrome. PLAN: 1. Altered mental status likely 2/2 to hypertensive encephalopathy vs. focal tonic motor seizure (no prior seizure history, new) or both. Cannot rule out component of AMS due to CO2 narcosis. EEG today, c/w BP control, keppra 750 mg IV BID, hydralazine PRN. Neuro checks have been neg. As per neurology who is consulted, avoid ativan use again if possible. It is preferred to load with dilantin if seizure activity returns. 2. Acute respiratory failure likely multifactorial to acute on chronic CHF exacerbation, obesity hypoventilation syndrome, noncomplaince with CPAP for LIANNA and COPD exacerbation. On NC, CPAP nightly. C/w with seizure control, BIPAP, duoneb ATC, albuterol PRN, lasix, daily wts, close monitoring of I&O's. Pulmonary following. Sputum culture ordered. 3. HTN. BP better controlled. Restarted on home medications today but decreased dose . 4. CKD Stage III. Cr near baseline. Daily labs. 5. Atrial fibrillation, chronic. Controlled. C/w apixiban, decreased dose BB with holding parameters, tele. 6. Diabetes mellitus. Consistent carb diet, tolerating well. ISS, AC/HS blood sugar checks. 7. DVT px. Heparin SC Q8 hrs. DISPOSITION: Admitted as inpatient to ICU but can consider downgrading in AM if continues to improve. VS, I&O, 24H, Fishbone Vital Signs/I&O Vital Signs Date Time Temp Pulse Resp B/P (MAP) Pulse Ox O2 Delivery O2 Flow Rate FiO2 08/04/19 16:41 95 Nasal Cannula 2.0 08/04/19 16:00 98.2 85 20 100/55 (70) 08/04/19 07:40 30 I&O- Last 24 Hours up to 6 AM 08/04/19 06:00 Intake Total 338 ml Output Total 3850 ml Balance -3512 ml Laboratory Data 24H LABS Laboratory Tests 2 08/04/19 00:07: Bedside Glucose (Misc Panel) 112H 08/04/19 04:21: Nucleated Red Blood Cells % (auto) 0.0, Anion Gap 0L, Glomerular Filtration Rate > 60.0, Calcium Level 8.0L, Phosphorus Level 3.0, Total Bilirubin 0.8, Aspartate Amino Transf (AST/SGOT) 20, Alanine Aminotransferase (ALT/SGPT) 23, Alkaline Phosphatase 40L, Lactate Dehydrogenase 174, Total Creatine Kinase 76, Total Protein 5.5#L, Albumin 2.4#L, Albumin/Globulin Ratio 0.77L, Triglycerides Level 75, Cholesterol Level 95 08/04/19 05:50: Blood Gas Bicarbonate Standard 42.5H, Arterial Blood pH 7.478H, Arterial Blood Partial Pressure CO2 62.2*H, Arterial Blood Partial Pressure O2 84.7, Arterial Blood Total CO2 47.0H, Arterial Blood HCO3 45.1H, Arterial Blood Base Excess 18.4H, Arterial Blood Oxygen Saturation 96.8 08/04/19 06:37: Bedside Glucose (Misc Panel) 86 08/04/19 11:18: Bedside Glucose (Misc Panel) 99 08/04/19 17:16: Bedside Glucose (Misc Panel) 119H CBC/BMP Laboratory Tests 08/04/19 04:21 Microbiology Microbiology 08/04/19 Gram Stain - Final, Resulted 08/04/19 Sputum Culture, Resulted Pending Current Medications Current Medications Medications (Trade) Dose Ordered Sig/Yao Route PRN Reason Start Time Stop Time Status Last Admin Dose Admin Acetaminophen (Tylenol Tab) 650 mg Q4H PRN PO PAIN OR FEVER 07/30/19 13:30 Al Hydrox/Mg Hydrox/Simethicone (Mylanta) 30 ml DAILY PRN PO DYSPEPSIA 07/30/19 13:30 Albuterol Sulfate (Proventil Neb) 2.5 mg Q1HP PRN NEB SHORTNESS OF BREATH 07/30/19 13:30 Albuterol/ Ipratropium (Combivent Respimat 100-20mcg) 1 puff Q4H INH 07/30/19 11:30 07/30/19 23:48 DC 07/30/19 19:58 Albuterol/ Ipratropium (Duoneb (Ipr 0.5mg/Alb 2.5mg)) 3 ml RQ6H NEB 07/30/19 20:00 08/04/19 14:08 Apixaban (Eliquis) 5 mg BID PO 07/30/19 21:00 08/03/19 10:19 DC 08/02/19 20:29 Apixaban (Eliquis) 5 mg BID PO 08/04/19 21:00 Atenolol (Tenormin) 50 mg DAILY PO 07/31/19 09:00 08/03/19 10:19 DC 08/02/19 08:00 Azithromycin 500 mg/IV Miscellaneous Supplies 1 each/ Dextrose 255 ml @ 255 mls/hr Q24H IV 07/30/19 18:00 08/02/19 11:19 DC 08/01/19 17:40 Ceftriaxone Sodium 1 gm/ Dextrose 50 ml @ 100 mls/hr Q24H IV 07/30/19 17:00 08/02/19 11:19 DC 08/01/19 16:41 Chlorhexidine Gluconate (Peridex Oral Rinse) SWAB/BRUSH ORAL CAVITY BID MT 08/03/19 09:00 08/04/19 09:18 Codeine Phosphate/ Guaifenesin (Robitussin Ac) 5 ml Q4HP PRN PO COUGH 08/01/19 11:30 08/04/19 13:18 DC 08/02/19 12:18 Dextrose (Dextrose 50%) 25 ml ASDIRECTED PRN IV SEE LABEL COMMENTS 07/30/19 17:15 Docusate Sodium (Colace) 100 mg BID PO 07/30/19 21:00 08/04/19 09:18 Furosemide (LASIX injection) 40 mg Q12H IV 07/31/19 01:00 07/31/19 10:37 DC 07/31/19 00:53 Furosemide (LASIX injection) 80 mg DAILY IV 08/03/19 09:00 08/04/19 09:18 Furosemide (LASIX injection) 80 mg Q12H IV 07/31/19 13:00 08/02/19 11:21 DC 08/02/19 00:19 Glucagon (Glucagon) 1 mg ASDIRECTED PRN SC SEE LABEL COMMENTS 07/30/19 17:15 Glucose (Glucose) 16 GM ASDIRECTED PRN PO SEE LABEL COMMENTS 07/30/19 17:15 Guaifenesin (Mucinex Tab Er) 600 mg BID PO 08/04/19 09:00 Heparin Sodium (Porcine) (Heparin) 5,000 units Q12H SC 07/30/19 13:30 07/30/19 13:36 DC Heparin Sodium (Porcine) (Heparin) 5,000 units Q8H SQ 08/03/19 14:00 08/04/19 11:35 DC 08/04/19 06:40 Home Med (Med Rec Complete!) ASDIRECTED XX 07/30/19 13:00 07/30/19 12:56 DC Hydralazine HCl (Apresoline) 10 mg Q8HP PRN IV For BP systolic >180 mmHg 08/03/19 10:15 08/04/19 09:23 DC Insulin Human Lispro (HumaLOG INSULIN) SEE PROTOCOL TABLE AC SC 07/30/19 17:30 08/03/19 10:36 DC 08/02/19 17:54 Insulin Human Lispro (HumaLOG INSULIN) SEE PROTOCOL TABLE AC OK 08/04/19 17:30 Insulin Human Lispro (HumaLOG INSULIN) SEE PROTOCOL TABLE Q6H OK 08/03/19 12:00 08/04/19 13:03 DC 08/04/19 00:14 Insulin Human Lispro (HumaLOG INSULIN) SEE PROTOCOL TABLE QHS OK 07/30/19 21:00 08/03/19 10:36 DC Insulin Human Lispro (HumaLOG INSULIN) SEE [facility]OCOL [facility] 08/[facility] 21:00 Levetiracetam 750 mg/Dextrose 107.5 ml @ 430 mls/hr Q12H IV 08/03/19 21:00 08/04/19 09:18 Lorazepam (Ativan) 1 mg STAT STAT IV 08/03/19 09:51 08/03/19 09:55 DC 08/03/19 10:00 Magnesium Hydroxide (Milk Of Magnesia) 30 ml DAILY PRN PO CONSTIPATION 07/30/19 13:30 Methylprednisolone (SOLUmedrol) 80 mg Q8H IV 07/30/19 20:00 08/02/19 11:32 DC 08/02/19 03:58 Metoprolol Tartrate (Lopressor) 2.5 mg STAT STAT IV 08/03/19 05:33 08/03/19 05:35 DC 08/03/19 05:40 Nitroglycerin (Nitrobid 2%) 0.5 INCH Q6H TOP 07/30/19 12:00 08/02/19 11:20 DC 08/02/19 05:08 Pantoprazole Sodium (Protonix) 40 mg DAILY PO 07/31/19 09:00 08/03/19 10:19 DC 08/02/19 07:58 Pantoprazole Sodium (Protonix) 40 mg Q24H IV 08/03/19 09:00 08/04/19 09:18 Pravastatin Sodium (Pravachol) 40 mg QHS PO 07/30/19 21:00 08/03/19 18:05 DC 08/02/19 20:28 Prednisone (Deltasone) 40 mg DAILY PO 08/03/19 09:00 08/03/19 10:19 DC Ramelteon (Rozerem) 8 mg QHS PRN PO INSOMNIA 08/02/19 14:30 08/03/19 11:52 DC 08/02/19 14:54 Tamsulosin HCl (Flomax) 0.4 mg QHS PO 07/30/19 21:00 08/03/19 18:05 DC 08/02/19 20:29 Allergies Coded Allergies: No Known Allergies (Unverified , 05/20/19) Earnestine Crook MD August 04, 2019 18:14
[2019-08-04] MEDS: TAMSULOSIN 0.4 MG CAP PO SCH (20:18)
[2019-08-04] MEDS: PRAVASTATIN 20 MG TAB PO SCH (20:19)
[2019-08-04] MEDS: APIXABAN 5 MG TAB (ELIQUIS) PO SCH (20:19)
[2019-08-05] VITALS (13 sets, daily range): BP systolic 110–141; BP diastolic 64–73; O2SAT 87–97
[2019-08-05] MEDS: IPRATROPIUM 0.5MG/ALBUTEROL 2.5MG INH SOL UD 3ML (DUONEB)(J7620) NEB SCH ×4 (01:13→20:27)
[2019-08-05 05:14] LABS: HEMATOCRIT 40.6 % (42.0-52.0); MEAN CORPUSCULAR HEMOGLOBIN 28.4 pg (27.0-33.0); MEAN CORPUSCULAR HGB CONC 29.6 g/dl (32.0-36.5); MEAN CORPUSCULAR VOLUME 96.2 fl (80.0-96.0); PLATELET COUNT, AUTOMATED 103 10^3/uL (150-450); RED BLOOD COUNT 4.22 10^6/uL (4.30-6.10); WHITE BLOOD COUNT 5.1 10^3/uL (4.0-10.0)
[2019-08-05 06:18] LABS: ALBUMIN 2.3 GM/DL (3.2-5.2); BILIRUBIN,TOTAL 0.9 MG/DL (0.2-1.0); CALCIUM LEVEL 8.2 MG/DL (8.8-10.2); CREATININE FOR GFR 1.4 MG/DL (0.70-1.30); GLOMERULAR FILTRATION RATE 51.5 (>35); POTASSIUM SERUM 3.3 MEQ/L (3.5-5.1); TOTAL PROTEIN 5.5 GM/DL (6.4-8.2)
[2019-08-05] MEDS: HumaLOG INSULIN (NovoLOG) PER UNIT SC SCH ×4 (07:30→21:00)
[2019-08-05] MEDS ORDERED: POTASSIUM CHLORIDE 10 MEQ SR TABLET PO ONE (09:00)
[2019-08-05] MEDS: atenoloL 25 MG TAB PO SCH (09:37)
[2019-08-05] MEDS: APIXABAN 5 MG TAB (ELIQUIS) PO SCH ×2 (09:38→21:19)
[2019-08-05] MEDS: DOCUSATE SODIUM 100 MG CAP PO SCH ×2 (09:38→21:20)
[2019-08-05] MEDS: guaiFENesin ER 600 MG TAB PO SCH ×2 (09:38→21:20)
[2019-08-05] MEDS: PANTOPRAZOLE 40MG TAB (PROTONIX) PO SCH (09:38)
[2019-08-05] MEDS: FUROSEMIDE 40MG/4ML VIAL (J1940) IV SCH (09:40)
[2019-08-05] MEDS: levETIRAcetam 250MG TABLET (KEPPRA) PO SCH ×2 (09:43→21:19)
[2019-08-05] MEDS: CHLORHEXIDINE GLUCONATE 0.12 % 15ML UDC (PERIDEX ORAL RINSE) MT SCH ×2 (09:53→21:19)
--- NOTE | 2019-08-05 12:13 | IPN ---
DATE OF SERVICE: 08/05/2019 Mr. Gore was seen and examined this morning during bedside rounds. He appears comfortable sitting up in his chair. He is actually a little more pleasant this morning during rounds. Earlier this morning, he was not in the best mood with nursing but did participate in following commands and was a little bit more approachable this morning. The patient states that he does have this nonproductive wet cough that he is unable to bring up, but he does have an Acapella and some guaifenesin tablets to help with this. He really has no other complaints. He states that he slept very well last night, he ate his breakfast without any problems and would like to know when he can go home. No other overnight events were reported by nursing or telemetry. PHYSICAL EXAMINATION: VITAL SIGNS: Temperature 98.0, pulse 94, respiration 20, blood pressure 118/73 (mean arterial pressure (MAP) of 88), pulse oximetry 93% on 2 liters of nasal cannula. INTAKE AND OUTPUT: Intake total 1267 mL, output total 5350 mL with a net balance of negative 4082.5 mL. No weight this morning. GENERAL: This is an 84-year-old male, who was a little more pleasant this morning, who does not appear in any acute distress. Appropriately answering questions. HEENT: Atraumatic, normocephalic, very poor dentition, with nasal cannula in place. No obvious jugular venous distention (JVD) note. Has a very large neck but no lymphadenopathy. CARDIOVASCULAR: Irregularly irregular. Heart rate controlled. Difficult to assess any murmurs, rubs, or gallops. RESPIRATION: Clear to auscultate bilaterally. No audible wheezing, rhonchi or rales. Does have adventitious lung sounds in the upper airways, but does clear up when clears his throat. ABDOMEN: Colostomy bag noted on the right lower quadrant. Positive bowel sounds. Obese abdomen nontender, no rebound, no guarding noted. GENITOURINARY: Noel in place with adequate urine output. NEUROLOGIC: Alert and oriented times three. Very appropriate this morning. No focal deficits noted. No involuntary movements noted. PSYCHIATRIC: Appropriate. LABORATORIES: WBC 5.1, hemoglobin 12.0, hematocrit 10.6, platelets 103. Chemistry: Sodium 142, potassium 3.3, chloride 92, carbon dioxide 48, anion gap 2, BUN 34, creatinine 1.40, fasting glucose 105, calcium 8.2, phosphorus 4.0, total bilirubin 0.9. ProBNP down from 9105 to 4775. ASSESSMENT AND PLAN: This is an 84-year-old male with multiple comorbidities significant for chronic obstructive pulmonary disease (COPD), obstructive sleep apnea (LIANNA), not on continuous positive airway pressure (CPAP), congestive heart failure, alcohol abuse, who presented to our emergency room (ER) for shortness of breath. 1. Acute hypoxic hypercarbic respiratory failure. Possibly secondary to his COPD exacerbation as well as LIANNA. We were under the impression that the patient did have a CPAP, but based on reviewing history medical records no sleep study has been done. It will be beneficial for him to actually get a sleep study done outpatient for he will benefit from it. As of right now, he is saturating appropriately on 2 liters of nasal cannula at bedtime to maintain his saturations between 88-92. Yesterday, he was diuresed with 80 mg of Lasix and had a net negative of 4 liters. With his carbon dioxide creeping up and his BUN and creatinine drifting up the patient has been diuresed appropriately, and he appears "euvolemic on exam today." We have transitioned him to 40 mg of Lasix daily with potassium supplementation. His acute hypoxic hypercarbic respiratory failure has been resolved, and he does not need to be in the intensive care unit (ICU) for bilevel positive airway pressure (BiPAP) management. He has been off of BiPAP for greater than 24 hours. 2. Altered mental status. Has resolved, possibly metabolic encephalopathy versus hypercarbic state. CT of the head was negative for any acute abnormalities. Appropriately answering questions today. He has not used any Ativan and is appropriately answering questions. 3. Chronic kidney disease, stage III. BUN and creatinine did bump up a little bit today. He has been diuresed with Lasix 80 mg and has been down titrated to 40 mg daily. Will monitor his intake and output, and BUN and creatinine. 4. Atrial fibrillation. Rate control continued to be rate controlled and has been placed back on his home dose of Eliquis, which he will continue as such. 5. Diabetes mellitus. We have him on insulin sliding scale for before food and nightly coverage. 6. Nonproductive wet cough. It does not appear infectious in cause. Acapella and guaifenesin tablets have been prescribed. Will continue to monitor. 7. Deep venous thrombosis (DVT) prophylaxis. Eliquis 5 mg twice a day. 8. History of gastroesophageal reflux disease. Have held his oral Protonix and is currently on IV, which he will continue as such. Dr. Juarez addendum: I personally evaluated the patient and participated in the gathering of history, physical findings and review of the diagnostics. I have discussed the patient with the attending hospitalist and ICU team. He is improved in some measures but remains critically ill and his prognosis is guarded. CRITICAL CARE TIME: Seventy three minutes exclusive of procedure time MTDD
--- NOTE | 2019-08-05 17:52 | IPNPDOC ---
Date Seen The patient was seen on 08/05/19. Progress Note SUBJECTIVE: Doing well on 1-2 L NC, tolerating pills and diet well. Using CPAP nightly. AAOx3, will transfer to PCU today. Sputum Cx gram pos cocci in pairs; however, very recent CXR neg for PNA. Will hold off to see results of final sputum cx, WBC wnl. Denies chest pain, increased shortness of breath but does complain of having increased chest congestion that he cannot cough up. OBJECTIVE: VITAL SIGNS: Please see below PHYSICAL EXAMINATION: CONSTITUTIONAL: Currently sitting up at bedside chair, communicating well, becomes short of breath with extended conversation EYES: PERRLA, EOM unable to be tested HENT, MOUTH: Normocephalic, atraumatic, moist mucous membranes, poor dentition NECK: SUPPLE, no JVD, no lymphadenopathy, no carotid bruit CV: Regular rate and rhythm, S1S2 normal, no murmurs/rubs/gallops RESPIRATORY: Improved breath sounds bilaterally, mild crackles in bilateral lung bases. No wheezing GI: Colostomy bag RLQ, BS positive in 4 quadrants, soft, nontender, nondiste nded, no rebound or guarding, no organomegaly : Noel catheter in place MUSCULOSKELETAL: No cyanosis, clubbing, swelling, joint deformity, extremity edema INTEGUMENTARY: peripheral vascular changes in bilateral lower ext, healing ulcers at different stages in lower ext. no rashes NEUROLOGIC: cranial Nerves II-XII are intact, no focal deficits seen. Strength 4 out of 5 in upper and lower extremities bilaterally, no sensory or motor deficits noted CURRENT MEDICATIONS: Please see below LABORATORY DATA: Please see below IMAGING: EEG, pending results congestion and cephalization, and a small right pleural effusion. No pneumothorax seen ASSESSMENT: 84 y/o M admitted to ICU with diagnosis of acute encephalopathy likely 2/2 to hypertensive emergency vs. focal tonic motor seizure, acute respiratory failure multifactorial to CHF exacerbation, COPD, obesity hypoventilation syndrome. PLAN: 1. Altered mental status likely 2/2 to hypertensive encephalopathy vs. focal tonic motor seizure (no prior seizure history, new) or both. Cannot rule out component of AMS due to CO2 narcosis- resolved with no new seizure activity. EEG results pending. C/w BP control, keppra 750 mg BID, hydralazine PRN. As per neurology who is consulted, avoid ativan use again if possible. It is preferred to load with dilantin if seizure activity returns. 2. Acute respiratory failure likely multifactorial to acute on chronic CHF exacerbation, obesity hypoventilation syndrome, noncomplaince with CPAP for LIANNA and COPD exacerbation. On NC, CPAP nightly. C/w with seizure control, BIPAP, duoneb ATC, albuterol PRN, lasix, daily wts, close monitoring of I&O's. Pulmonary following. Official sputum culture pending 3. HTN. BP better controlled. C/w home meds. 4. CKD Stage III. Cr near baseline. Daily labs. 5. Atrial fibrillation, chronic. Controlled. C/w apixiban, BB with holding parameters, tele. 6. Diabetes mellitus. Consistent carb diet, tolerating well. ISS, AC/HS blood sugar checks. 7. DVT px. Heparin SC Q8 hrs. DISPOSITION: Transferred to PCU today, plan is c/w PT/OT. May require rehab prior to home. VS, I&O, 24H, Fishbone Vital Signs/I&O Vital Signs Date Time Temp Pulse Resp B/P (MAP) Pulse Ox O2 Delivery O2 Flow Rate FiO2 08/05/19 16:00 1.0 08/05/19 12:00 98.3 87 18 110/64 (79) 94 Nasal Cannula 08/04/19 20:55 30 I&O- Last 24 Hours up to 6 AM 08/05/19 06:00 Intake Total 1537.5 ml Output Total 4200 ml Balance -2662.5 ml Laboratory Data 24H LABS Laboratory Tests 2 08/04/19 20:06: Bedside Glucose (Misc Panel) 116H 08/05/19 04:41: Nucleated Red Blood Cells % (auto) 0.0, Anion Gap 2L, Glomerular Filtration Rate 51.5, Calcium Level 8.2L, Phosphorus Level 4.0#, Total Bilirubin 0.9, Aspartate Amino Transf (AST/SGOT) 12, Alanine Aminotransferase (ALT/SGPT) 20, Alkaline Phosphatase 42L, Lactate Dehydrogenase 170, Total Creatine Kinase 32L, ZO-[id number]-Type Natriuretic Peptide 4775H, Total Protein 5.5L, Albumin 2.3L, Albumin/Globulin Ratio 0.72L, Triglycerides Level 75, Cholesterol Level 95 08/05/19 12:03: Bedside Glucose (Misc Panel) 171H 5/7/20 16:43: Bedside Glucose (Misc Panel) 113H CBC/BMP Laboratory Tests 08/05/19 04:41 Microbiology Microbiology 08/04/19 Gram Stain - Final, Resulted 08/04/19 Sputum Culture, Resulted Pending Current Medications Current Medications Medications (Trade) Dose Ordered Sig/Yao Route PRN Reason Start Time Stop Time Status Last Admin Dose Admin Acetaminophen (Tylenol Tab) 650 mg Q4H PRN PO PAIN OR FEVER 07/30/19 13:30 Al Hydrox/Mg Hydrox/Simethicone (Mylanta) 30 ml DAILY PRN PO DYSPEPSIA 07/30/19 13:30 Albuterol Sulfate (Proventil Neb) 2.5 mg Q1HP PRN NEB SHORTNESS OF BREATH 07/30/19 13:30 Albuterol/ Ipratropium (Combivent Respimat 100-20mcg) 1 puff Q4H INH 07/30/19 11:30 07/30/19 23:48 DC 07/30/19 19:58 Albuterol/ Ipratropium (Duoneb (Ipr 0.5mg/Alb 2.5mg)) 3 ml RQ6H NEB 07/30/19 20:00 08/05/19 14:24 Apixaban (Eliquis) 5 mg BID PO 07/30/19 21:00 08/03/19 10:19 DC 08/02/19 20:29 Apixaban (Eliquis) 5 mg BID PO 08/04/19 21:00 08/05/19 09:38 Atenolol (Tenormin) 25 mg DAILY PO 08/05/19 09:00 08/05/19 09:37 Atenolol (Tenormin) 50 mg DAILY PO 07/31/19 09:00 08/03/19 10:19 DC 08/02/19 08:00 Azithromycin 500 mg/IV Miscellaneous Supplies 1 each/ Dextrose 255 ml @ 255 mls/hr Q24H IV 07/30/19 18:00 08/02/19 11:19 DC 08/01/19 17:40 Ceftriaxone Sodium 1 gm/ Dextrose 50 ml @ 100 mls/hr Q24H IV 07/30/19 17:00 08/02/19 11:19 DC 08/01/19 16:41 Chlorhexidine Gluconate (Peridex Oral Rinse) SWAB/BRUSH ORAL CAVITY BID MT 08/03/19 09:00 08/05/19 09:53 Codeine Phosphate/ Guaifenesin (Robitussin Ac) 5 ml Q4HP PRN PO COUGH 08/01/19 11:30 08/04/19 13:18 DC 08/02/19 12:18 Dextrose (Dextrose 50%) 25 ml ASDIRECTED PRN IV SEE LABEL COMMENTS 07/30/19 17:15 Docusate Sodium (Colace) 100 mg BID PO 07/30/19 21:00 08/05/19 09:38 Furosemide (LASIX injection) 40 mg DAILY IV 08/05/19 09:00 08/05/19 09:40 Furosemide (LASIX injection) 40 mg Q12H IV 07/31/19 01:00 07/31/19 10:37 DC 07/31/19 00:53 Furosemide (LASIX injection) 80 mg DAILY IV 08/03/19 09:00 08/04/19 18:26 DC 08/04/19 09:18 Furosemide (LASIX injection) 80 mg Q12H IV 07/31/19 13:00 08/02/19 11:21 DC 08/02/19 00:19 Glucagon (Glucagon) 1 mg ASDIRECTED PRN SC SEE LABEL COMMENTS 07/30/19 17:15 Glucose (Glucose) 16 GM ASDIRECTED PRN PO SEE LABEL COMMENTS 07/30/19 17:15 Guaifenesin (Mucinex Tab Er) 600 mg BID PO 08/04/19 09:00 08/05/19 09:38 Heparin Sodium (Porcine) (Heparin) 5,000 units Q12H SC 07/30/19 13:30 07/30/19 13:36 DC Heparin Sodium (Porcine) (Heparin) 5,000 units Q8H SQ 08/03/19 14:00 08/04/19 11:35 DC 08/04/19 06:40 Home Med (Med Rec Complete!) ASDIRECTED XX 07/30/19 13:00 07/30/19 12:56 DC Hydralazine HCl (Apresoline) 10 mg Q8HP PRN IV For BP systolic >180 mmHg 08/03/19 10:15 08/04/19 09:23 DC Insulin Human Lispro (HumaLOG INSULIN) SEE PROTOCOL TABLE AC SC 07/30/19 17:30 08/03/19 10:36 DC 08/02/19 17:54 Insulin Human Lispro (HumaLOG INSULIN) SEE PROTOCOL TABLE AC NJ 08/04/19 17:30 08/05/19 12:12 Insulin Human Lispro (HumaLOG INSULIN) SEE PROTOCOL TABLE Q6H NJ 08/03/19 12:00 08/04/19 13:03 DC 08/04/19 00:14 Insulin Human Lispro (HumaLOG INSULIN) SEE PROTOCOL TABLE QHS NJ 07/30/19 21:00 08/03/19 10:36 DC Insulin Human Lispro (HumaLOG INSULIN) SEE PROTOCOL TABLE QHS NJ 08/04/19 21:00 Levetiracetam (Keppra) 750 mg BID PO 08/05/19 09:00 08/05/19 09:43 Levetiracetam 750 mg/Dextrose 107.5 ml @ 430 mls/hr Q12H IV 08/03/19 21:00 08/05/19 09:35 DC 08/04/19 20:20 Lorazepam (Ativan) 1 mg STAT STAT IV 08/03/19 09:51 08/03/19 09:55 DC 08/03/19 10:00 Magnesium Hydroxide (Milk Of Magnesia) 30 ml DAILY PRN PO CONSTIPATION 07/30/19 13:30 Methylprednisolone (SOLUmedrol) 80 mg Q8H IV 07/30/19 20:00 08/02/19 11:32 DC 08/02/19 03:58 Metoprolol Tartrate (Lopressor) 2.5 mg STAT STAT IV 08/03/19 05:33 08/03/19 05:35 DC 08/03/19 05:40 Nitroglycerin (Nitrobid 2%) 0.5 INCH Q6H TOP 07/30/19 12:00 08/02/19 11:20 DC 08/02/19 05:08 Pantoprazole Sodium (Protonix) 40 mg DAILY PO 07/31/19 09:00 08/03/19 10:19 DC 08/02/19 07:58 Pantoprazole Sodium (Protonix) 40 mg DAILY PO 08/05/19 09:00 08/05/19 09:38 Pantoprazole Sodium (Protonix) 40 mg Q24H IV 08/03/19 09:00 08/04/19 18:26 DC 08/04/19 09:18 Pravastatin Sodium (Pravachol) 40 mg QHS PO 07/30/19 21:00 08/03/19 18:05 DC 08/02/19 20:28 Pravastatin Sodium (Pravachol) 40 mg QHS PO 08/04/19 21:00 08/04/19 20:19 Prednisone (Deltasone) 40 mg DAILY PO 08/03/19 09:00 08/03/19 10:19 DC Ramelteon (Rozerem) 8 mg QHS PRN PO INSOMNIA 08/02/19 14:30 08/03/19 11:52 DC 08/02/19 14:54 Tamsulosin HCl (Flomax) 0.4 mg QHS PO 07/30/19 21:00 08/03/19 18:05 DC 08/02/19 20:29 Tamsulosin HCl (Flomax) 0.4 mg QHS PO 08/04/19 21:00 08/04/19 20:18 Allergies Coded Allergies: No Known Allergies (Unverified , 05/20/19) Earnestine Crook MD August 05, 2019 17:52
[2019-08-05] MEDS: TAMSULOSIN 0.4 MG CAP PO SCH (21:19)
[2019-08-05] MEDS: PRAVASTATIN 20 MG TAB PO SCH (21:19)
[2019-08-06] VITALS (15 sets, daily range): BP systolic 96–148; BP diastolic 67–77; O2SAT 88–95
[2019-08-06] MEDS: IPRATROPIUM 0.5MG/ALBUTEROL 2.5MG INH SOL UD 3ML (DUONEB)(J7620) NEB SCH ×4 (01:33→20:20)
[2019-08-06 05:51] LABS: HEMATOCRIT 40.3 % (42.0-52.0); HEMOGLOBIN 12.1 g/dl (13.5-17.5); MEAN CORPUSCULAR VOLUME 96.6 fl (80.0-96.0); PLATELET COUNT, AUTOMATED 116 10^3/uL (150-450); RED BLOOD COUNT 4.17 10^6/uL (4.30-6.10); WHITE BLOOD COUNT 5.8 10^3/uL (4.0-10.0)
[2019-08-06 06:43] LABS: ALBUMIN 2.4 GM/DL (3.2-5.2); ALT/SGPT 21 U/L (12-78); BILIRUBIN,TOTAL 0.6 MG/DL (0.2-1.0); BLOOD UREA NITROGEN 34 MG/DL (7-18); CALCIUM LEVEL 8.4 MG/DL (8.8-10.2); CARBON DIOXIDE LEVEL 46 MEQ/L (21-32); CHLORIDE LEVEL 96 MEQ/L (98-107); CHOLESTEROL LEVEL 102 MG/DL (< 200); CPK CREATINE PHOSPHOKINASE 23 U/L (39-308); CREATININE FOR GFR 1.18 MG/DL (0.70-1.30); GLOMERULAR FILTRATION RATE > 60.0 (>35); GLUCOSE, FASTING 118 MG/DL (70-100); LDH LACTATE DEHYDROGENASE 152 U/L (87-241); PHOSPHORUS LEVEL 3.8 MG/DL (2.5-4.9); POTASSIUM SERUM 3.8 MEQ/L (3.5-5.1); SODIUM LEVEL 143 MEQ/L (136-145); TOTAL PROTEIN 5.8 GM/DL (6.4-8.2); TRIGLYCERIDES LEVEL 62 MG/DL (<150)
[2019-08-06] MEDS: HumaLOG INSULIN (NovoLOG) PER UNIT SC SCH ×4 (08:35→21:00)
[2019-08-06] MEDS: CHLORHEXIDINE GLUCONATE 0.12 % 15ML UDC (PERIDEX ORAL RINSE) MT SCH ×2 (10:10→21:00)
[2019-08-06] MEDS: DOCUSATE SODIUM 100 MG CAP PO SCH ×2 (10:11→21:55)
[2019-08-06] MEDS: atenoloL 25 MG TAB PO SCH (10:11)
[2019-08-06] MEDS: levETIRAcetam 250MG TABLET (KEPPRA) PO SCH ×2 (10:11→21:54)
[2019-08-06] MEDS: PANTOPRAZOLE 40MG TAB (PROTONIX) PO SCH (10:11)
[2019-08-06] MEDS: guaiFENesin ER 600 MG TAB PO SCH ×2 (10:12→21:55)
[2019-08-06] MEDS: FUROSEMIDE 40MG/4ML VIAL (J1940) IV SCH (10:12)
[2019-08-06] MEDS: APIXABAN 5 MG TAB (ELIQUIS) PO SCH ×2 (10:12→21:53)
--- NOTE | 2019-08-06 17:09 | IPNPDOC ---
Date Seen The patient was seen on 08/06/19. Progress Note SUBJECTIVE: On 2 L NC, AAOx3. Sputum Cx NF so not started on abx. PT/OT working with him and will need rehab before returning home. Currently denies chest pain, increased shortness of breath. OBJECTIVE: VITAL SIGNS: Please see below PHYSICAL EXAMINATION: CONSTITUTIONAL: Currently sitting up at bedside chair, AAOx3 EYES: PERRLA, EOM unable to be tested HENT, MOUTH: Normocephalic, atraumatic, moist mucous membranes, poor dentition NECK: SUPPLE, no JVD, no lymphadenopathy, no carotid bruit CV: Regular rate and rhythm, S1S2 normal, no murmurs/rubs/gallops RESPIRATORY: mild crackles in bilateral lung bases. No wheezing GI: Colostomy bag RLQ, BS positive in 4 quadrants, soft, nontender, nondistended, no rebound or guarding, no organomegaly : Noel catheter in place MUSCULOSKELETAL: No cyanosis, clubbing, swelling, joint deformity, extremity edema INTEGUMENTARY: peripheral vascular changes in bilateral lower ext, healing ulcers at different stages in lower ext. no rashes NEUROLOGIC: cranial Nerves II-XII are intact, no focal deficits seen. Strength 4 out of 5 in upper and lower extremities bilaterally, no sensory or motor deficits noted CURRENT MEDICATIONS: Please see below LABORATORY DATA: Please see below IMAGING: EEG, pending- will call neuro today ASSESSMENT: 84 y/o M with acute encephalopathy likely 2/2 to hypertensive emergency vs. focal tonic motor seizure, acute respiratory failure multifactorial to CHF exacerbation, COPD, obesity hypoventilation syndrome. PLAN: 1. Acute respiratory failure likely multifactorial to acute on chronic CHF exacerbation, obesity hypoventilation syndrome, noncomplaince with CPAP for LIANNA and COPD exacerbation. Improving slowly but remains on 2 L NC. CPAP nightly. C/w with duoneb ATC, albuterol PRN, lasix, daily wts, close monitoring of I&O's. Pulmonary following. 2. 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 EEG done but not read- calling neuro today. No new seizure activity. C/w keppra 750 mg BID. As per neurology who is consulted, avoid ativan use. It is preferred to load with dilantin if seizure activity returns. 3. HTN. Stable. C/w home meds. 4. CKD Stage III. Cr near baseline. Daily labs. 5. Atrial fibrillation, chronic. Controlled. C/w apixiban, BB with holding parameters. 6. Diabetes mellitus. Consistent carb diet, tolerating well. ISS, AC/HS blood sugar checks. 7. DVT px. Heparin SC Q8 hrs. DISPOSITION: Patient will require rehab prior to returning home. He is not participating much when there but PT/OT will continue to work with him. VS, I&O, 24H, Fishbone Vital Signs/I&O Vital Signs Date Time Temp Pulse Resp B/P (MAP) Pulse Ox O2 Delivery O2 Flow Rate FiO2 08/06/19 16:00 97.7 88 20 148/71 (96) 94 Nasal Cannula 2.0 08/04/19 20:55 30 I&O- Last 24 Hours up to 6 AM 08/06/19 06:00 Intake Total 1440 ml Output Total 2380 ml Balance -940 ml Laboratory Data 24H LABS Laboratory Tests 2 08/05/19 21:26: Bedside Glucose (Misc Panel) 146H 08/06/19 05:23: Nucleated Red Blood Cells % (auto) 0.0, Anion Gap 1L, Glomerular Filtration Rate > 60.0, Calcium Level 8.4L, Phosphorus Level 3.8, Total Bilirubin 0.6, Aspartate Amino Transf (AST/SGOT) 7, Alanine Aminotransferase (ALT/SGPT) 21, Alkaline Phosphatase 47, Lactate Dehydrogenase 152, Total Creatine Kinase 23L, Total Protein 5.8L, Albumin 2.4L, Albumin/Globulin Ratio 0.71L, Triglycerides Level 62, Cholesterol Level 102 08/06/19 11:58: Bedside Glucose (Misc Panel) 121H 08/06/19 16:50: Bedside Glucose (Misc Panel) 114H CBC/BMP Laboratory Tests 08/06/19 05:23 Microbiology Microbiology 08/04/19 Gram Stain - Final, Complete 08/04/19 Sputum Culture - Final, Complete Current Medications Current Medications Medications (Trade) Dose Ordered Sig/Yao Route PRN Reason Start Time Stop Time Status Last Admin Dose Admin Acetaminophen (Tylenol Tab) 650 mg Q4H PRN PO PAIN OR FEVER 07/30/19 13:30 Al Hydrox/Mg Hydrox/Simethicone (Mylanta) 30 ml DAILY PRN PO DYSPEPSIA 07/30/19 13:30 Albuterol Sulfate (Proventil Neb) 2.5 mg Q1HP PRN NEB SHORTNESS OF BREATH 07/30/19 13:30 Albuterol/ Ipratropium (Combivent Respimat 100-20mcg) 1 puff Q4H INH 07/30/19 11:30 07/30/19 23:48 DC 07/30/19 19:58 Albuterol/ Ipratropium (Duoneb (Ipr 0.5mg/Alb 2.5mg)) 3 ml RQ6H NEB 07/30/19 20:00 08/06/19 14:55 Apixaban (Eliquis) 5 mg BID PO 07/30/19 21:00 08/03/19 10:19 DC 08/02/19 20:29 Apixaban (Eliquis) 5 mg BID PO 08/04/19 21:00 08/06/19 10:12 Atenolol (Tenormin) 25 mg DAILY PO 08/05/19 09:00 08/06/19 10:11 Atenolol (Tenormin) 50 mg DAILY PO 07/31/19 09:00 08/03/19 10:19 DC 08/02/19 08:00 Azithromycin 500 mg/IV Miscellaneous Supplies 1 each/ Dextrose 255 ml @ 255 mls/hr Q24H IV 07/30/19 18:00 08/02/19 11:19 DC 08/01/19 17:40 Ceftriaxone Sodium 1 gm/ Dextrose 50 ml @ 100 mls/hr Q24H IV 07/30/19 17:00 08/02/19 11:19 DC 08/01/19 16:41 Chlorhexidine Gluconate (Peridex Oral Rinse) SWAB/BRUSH ORAL CAVITY BID MT 08/03/19 09:00 08/05/19 21:19 Codeine Phosphate/ Guaifenesin (Robitussin Ac) 5 ml Q4HP PRN PO COUGH 08/01/19 11:30 08/04/19 13:18 DC 08/02/19 12:18 Dextrose (Dextrose 50%) 25 ml ASDIRECTED PRN IV SEE LABEL COMMENTS 07/30/19 17:15 Docusate Sodium (Colace) 100 mg BID PO 07/30/19 21:00 08/06/19 10:11 Furosemide (LASIX injection) 40 mg DAILY IV 08/05/19 09:00 08/06/19 10:12 Furosemide (LASIX injection) 40 mg Q12H IV 07/31/19 01:00 07/31/19 10:37 DC 07/31/19 00:53 Furosemide (LASIX injection) 80 mg DAILY IV 08/03/19 09:00 08/04/19 18:26 DC 08/04/19 09:18 Furosemide (LASIX injection) 80 mg Q12H IV 07/31/19 13:00 08/02/19 11:21 DC 08/02/19 00:19 Glucagon (Glucagon) 1 mg ASDIRECTED PRN SC SEE LABEL COMMENTS 07/30/19 17:15 Glucose (Glucose) 16 GM ASDIRECTED PRN PO SEE LABEL COMMENTS 07/30/19 17:15 Guaifenesin (Mucinex Tab Er) 600 mg BID PO 08/04/19 09:00 08/06/19 10:12 Heparin Sodium (Porcine) (Heparin) 5,000 units Q12H SC 07/30/19 13:30 07/30/19 13:36 DC Heparin Sodium (Porcine) (Heparin) 5,000 units Q8H SQ 08/03/19 14:00 08/04/19 11:35 DC 08/04/19 06:40 Home Med (Med Rec Complete!) ASDIRECTED XX 07/30/19 13:00 07/30/19 12:56 DC Hydralazine HCl (Apresoline) 10 mg Q8HP PRN IV For BP systolic >180 mmHg 08/03/19 10:15 08/04/19 09:23 DC Insulin Human Lispro (HumaLOG INSULIN) SEE PROTOCOL TABLE AC SC 07/30/19 17:30 08/03/19 10:36 DC 08/02/19 17:54 Insulin Human Lispro (HumaLOG INSULIN) SEE PROTOCOL TABLE AC SC 08/04/19 17:30 08/05/19 12:12 Insulin Human Lispro (HumaLOG INSULIN) SEE PROTOCOL TABLE Q6H SC 08/03/19 12:00 08/04/19 13:03 DC 08/04/19 00:14 Insulin Human Lispro (HumaLOG INSULIN) SEE PROTOCOL TABLE QHS SC 07/30/19 21:00 08/03/19 10:36 DC Insulin Human Lispro (HumaLOG INSULIN) SEE PROTOCOL TABLE QHS SC 08/04/19 21:00 Levetiracetam (Keppra) 750 mg BID PO 08/05/19 09:00 08/06/19 10:11 Levetiracetam 750 mg/Dextrose 107.5 ml @ 430 mls/hr Q12H IV 08/03/19 21:00 08/05/19 09:35 DC 08/04/19 20:20 Lorazepam (Ativan) 1 mg STAT STAT IV 08/03/19 09:51 08/03/19 09:55 DC 08/03/19 10:00 Magnesium Hydroxide (Milk Of Magnesia) 30 ml DAILY PRN PO CONSTIPATION 07/30/19 13:30 Methylprednisolone (SOLUmedrol) 80 mg Q8H IV 07/30/19 20:00 08/02/19 11:32 DC 08/02/19 03:58 Metoprolol Tartrate (Lopressor) 2.5 mg STAT STAT IV 08/03/19 05:33 08/03/19 05:35 DC 08/03/19 05:40 Nitroglycerin (Nitrobid 2%) 0.5 INCH Q6H TOP 07/30/19 12:00 08/02/19 11:20 DC 08/02/19 05:08 Pantoprazole Sodium (Protonix) 40 mg DAILY PO 07/31/19 09:00 08/03/19 10:19 DC 08/02/19 07:58 Pantoprazole Sodium (Protonix) 40 mg DAILY PO 08/05/19 09:00 08/06/19 10:11 Pantoprazole Sodium (Protonix) 40 mg Q24H IV 08/03/19 09:00 08/04/19 18:26 DC 08/04/19 09:18 Pravastatin Sodium (Pravachol) 40 mg QHS PO 07/30/19 21:00 08/03/19 18:05 DC 08/02/19 20:28 Pravastatin Sodium (Pravachol) 40 mg QHS PO 08/04/19 21:00 08/05/19 21:19 Prednisone (Deltasone) 40 mg DAILY PO 08/03/19 09:00 08/03/19 10:19 DC Ramelteon (Rozerem) 8 mg QHS PRN PO INSOMNIA 08/02/19 14:30 08/03/19 11:52 DC 08/02/19 14:54 Tamsulosin HCl (Flomax) 0.4 mg QHS PO 07/30/19 21:00 08/03/19 18:05 DC 08/02/19 20:29 Tamsulosin HCl (Flomax) 0.4 mg QHS PO 08/04/19 21:00 08/05/19 21:19 Allergies Coded Allergies: No Known Allergies (Unverified , 05/20/19) Earnestine Croko MD August 06, 2019 17:09
[2019-08-06] MEDS: TAMSULOSIN 0.4 MG CAP PO SCH (21:54)
[2019-08-06] MEDS: PRAVASTATIN 20 MG TAB PO SCH (21:55)
[2019-08-07] VITALS: BP 130/79
[2019-08-07] MEDS: IPRATROPIUM 0.5MG/ALBUTEROL 2.5MG INH SOL UD 3ML (DUONEB)(J7620) NEB SCH ×4 (00:55→19:40)
[2019-08-07 04:00] VITALS: BP 109/67
[2019-08-07 05:44] LABS: HEMATOCRIT 40.1 % (42.0-52.0); HEMOGLOBIN 11.9 g/dl (13.5-17.5); MEAN CORPUSCULAR HEMOGLOBIN 28.7 pg (27.0-33.0); MEAN CORPUSCULAR HGB CONC 29.7 g/dl (32.0-36.5); MEAN CORPUSCULAR VOLUME 96.6 fl (80.0-96.0); PLATELET COUNT, AUTOMATED 127 10^3/uL (150-450); RED BLOOD COUNT 4.15 10^6/uL (4.30-6.10); WHITE BLOOD COUNT 5.8 10^3/uL (4.0-10.0)
[2019-08-07 05:52] LABS: ALBUMIN 2.5 GM/DL (3.2-5.2); ALT/SGPT 17 U/L (12-78); BILIRUBIN,TOTAL 0.9 MG/DL (0.2-1.0); BLOOD UREA NITROGEN 28 MG/DL (7-18); CALCIUM LEVEL 8.8 MG/DL (8.8-10.2); CARBON DIOXIDE LEVEL 43 MEQ/L (21-32); CHLORIDE LEVEL 94 MEQ/L (98-107); CHOLESTEROL LEVEL 110 MG/DL (< 200); CPK CREATINE PHOSPHOKINASE 28 U/L (39-308); CREATININE FOR GFR 1.02 MG/DL (0.70-1.30); GLOMERULAR FILTRATION RATE > 60.0 (>35); GLUCOSE, FASTING 112 MG/DL (70-100); LDH LACTATE DEHYDROGENASE 169 U/L (87-241); PHOSPHORUS LEVEL 3.4 MG/DL (2.5-4.9); POTASSIUM SERUM 3.6 MEQ/L (3.5-5.1); SODIUM LEVEL 139 MEQ/L (136-145); TOTAL PROTEIN 5.7 GM/DL (6.4-8.2); TRIGLYCERIDES LEVEL 80 MG/DL (<150)
[2019-08-07 08:00] VITALS: BP 130/76
[2019-08-07 08:37] LABS: NT-PRO BNP 3079 PG/ML (<450)
[2019-08-07] MEDS: DOCUSATE SODIUM 100 MG CAP PO SCH ×2 (09:00→22:23)
[2019-08-07] MEDS: levETIRAcetam 250MG TABLET (KEPPRA) PO SCH ×2 (09:39→22:23)
[2019-08-07] MEDS: guaiFENesin ER 600 MG TAB PO SCH ×2 (09:39→22:23)
[2019-08-07] MEDS: atenoloL 25 MG TAB PO SCH (09:40)
[2019-08-07] MEDS: FUROSEMIDE 40MG/4ML VIAL (J1940) IV SCH (09:40)
[2019-08-07] MEDS: APIXABAN 5 MG TAB (ELIQUIS) PO SCH ×2 (09:40→22:23)
[2019-08-07] MEDS: PANTOPRAZOLE 40MG TAB (PROTONIX) PO SCH (09:40)
[2019-08-07] MEDS: HumaLOG INSULIN (NovoLOG) PER UNIT SC SCH ×4 (09:41→21:00)
[2019-08-07] MEDS: CHLORHEXIDINE GLUCONATE 0.12 % 15ML UDC (PERIDEX ORAL RINSE) MT SCH ×2 (09:41→21:00)
[2019-08-07 12:00] VITALS: BP 125/80
[2019-08-07 15:15] VITALS: BP 102/68
--- NOTE | 2019-08-07 16:22 | EEG ---
DATE OF EE08/04/2019 REFERRING PHYSICIAN: Dr. Earnestine Crook DIAGNOSIS: Seizure. EEG NUMBER: [id number] HISTORY: The patient is an 84-year-old man with history of multiple medical problems who had an episode of loss of consciousness. This EEG was done to rule out epileptic potential. He is currently taking Keppra, atenolol, Protonix, pravastatin, Flomax, Eliquis, prednisone, Ativan, etc. TECHNICAL DESCRIPTION: This digital EEG was recorded by 21 scalp, ear, and two EKG electrodes and was reviewed in bipolar and referential montages following reformatting in 10-20 international electrode placement system. INTERPRETATION: The patient was noted to be in awake and drowsy states during this EEG. Resting awake background rhythm consisted of 4-5 Hz theta activity measuring 15-40 microvolts in amplitude, which was symmetric bilaterally. Stage I sleep was reviewed and was symmetric bilaterally. Hyperventilation could not be performed. Photic stimulation remained unremarkable. EKG revealed PVCs and atrial fibrillation. No focal, lateralizing or epileptiform abnormalities were seen. No relevant clinical activity was noted. CONCLUSION: This EEG in awake, drowsy states, stage I sleep is abnormal due to presence of generalized slowing and disorganization of background consistent with nonspecific diffuse cerebral dysfunction such as seen in encephalopathy due to multiple potential causes including toxic, metabolic, infectious, multifocal structural brain abnormalities. No epileptiform abnormalities were seen. Clinical correlation is recommended.
--- NOTE | 2019-08-07 16:38 | IPNPDOC ---
Date Seen The patient was seen on 08/07/19. Progress Note SUBJECTIVE: On 1-2 L NC, AAOx3. -2L/24 hours tolerating daily lasix well. Moving to med/surg without tele today. Currently denies chest pain, increased shortness of breath. OBJECTIVE: VITAL SIGNS: Please see below PHYSICAL EXAMINATION: CONSTITUTIONAL: Currently sitting up at bedside chair, AAOx3 EYES: PERRLA, EOM intact HENT, MOUTH: Normocephalic, atraumatic, moist mucous membranes, poor dentition NECK: SUPPLE, no JVD, no lymphadenopathy, no carotid bruit CV: irregularly irregular rhythm, rate controlled, S1S2 normal, no murmurs/rubs/gallops RESPIRATORY: CTAB. No wheezing, r/r GI: Colostomy bag RLQ, BS positive in 4 quadrants, soft, nontender, nondistended, no rebound or guarding, no organomegaly : Deferred MUSCULOSKELETAL: No cyanosis, clubbing, swelling, joint deformity, extremity edema INTEGUMENTARY: peripheral vascular changes in bilateral lower ext, healing ulcers at different stages in lower ext. no rashes NEUROLOGIC: cranial Nerves II-XII are intact, no focal or 155 vaginal gradient and technology deficits seen. Strength 5/ 5 in upper and lower extremities bila terally, no sensory or motor deficits noted CURRENT MEDICATIONS: Please see below LABORATORY DATA: Please see below IMAGING: EEG- This EEG in awake, drowsy states, stage I sleep is abnormal due to presence of generalized slowing and disorganization of background consistent with nonspecific diffuse cerebral dysfunction such as seen in encephalopathy due to multiple potential causes including toxic, metabolic, infectious, multifocal structural brain abnormalities. No epileptiform abnormalities were seen. Clinical correlation is recommended. ASSESSMENT: 84 y/o M with acute respiratory failure multifactorial to CHF exacerbation, COPD, obesity hypoventilation syndrome. PLAN: 1. Acute respiratory failure likely multifactorial to acute on chronic CHF exacerbation, obesity hypoventilation syndrome, noncomplaince with CPAP for LIANNA and COPD. Much improved currently on 2 L NC. C/w CPAP nightly, duoneb ATC, albuterol PRN, lasix, daily wts, close monitoring of I&O's. 2. 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 EEG above, will discuss with neurology after weekend to determine if patient should stay on antiseizure medications. C/w keppra 750 mg BID. As per neurology who is consulted, avoid ativan use. It is preferred to load with dilantin if seizure activity returns. 3. Physical deconditioning 2/2 to problems above. C/w PT/OT. 4. HTN. Stable. C/w home meds. 5. CKD Stage III. Cr wnl. Daily labs. 6. Atrial fibrillation, chronic. Controlled. C/w apixiban, BB. 7. Diabetes mellitus. Consistent carb diet, tolerating well. ISS, AC/HS blood sugar checks. 8. DVT px. Apixiban. DISPOSITION: Patient will require rehab prior to returning home. PT/OT. VS, I&O, 24H, Fishbone Vital Signs/I&O Vital Signs Date Time Temp Pulse Resp B/P (MAP) Pulse Ox O2 Delivery O2 Flow Rate FiO2 08/07/19 15:23 2.0 08/07/19 15:15 98.1 89 18 102/68 (79) 93 Nasal Cannula 08/04/19 20:55 30 I&O- Last 24 Hours up to 6 AM 08/07/19 06:00 Intake Total 1754 ml Output Total 3350 ml Balance -1596 ml Laboratory Data 24H LABS Laboratory Tests 2 08/06/19 16:50: Bedside Glucose (Misc Panel) 114H 08/06/19 21:57: Bedside Glucose (Misc Panel) 150H 08/07/19 05:03: Nucleated Red Blood Cells % (auto) 0.0, Anion Gap 2L, Glomerular Filtration Rate > 60.0, Calcium Level 8.8, Phosphorus Level 3.4, Total Bilirubin 0.9, Aspartate Amino Transf (AST/SGOT) 12, Alanine Aminotransferase (ALT/SGPT) 17, Alkaline Phosphatase 46, Lactate Dehydrogenase 169, Total Creatine Kinase 28L, NT-P ro-B-Type Natriuretic Peptide 3079H, Total Protein 5.7L, Albumin 2.5L, Albumin/Globulin Ratio 0.78L, Triglycerides Level 80, Cholesterol Level 110 08/07/19 12:04: Bedside Glucose (Misc Panel) 128H CBC/BMP Laboratory Tests 08/07/19 05:03 Microbiology Microbiology 08/04/19 Gram Stain - Final, Complete 08/04/19 Sputum Culture - Final, Complete Current Medications Current Medications Medications (Trade) Dose Ordered Sig/Yao Route PRN Reason Start Time Stop Time Status Last Admin Dose Admin Acetaminophen (Tylenol Tab) 650 mg Q4H PRN PO PAIN OR FEVER 07/30/19 13:30 Al Hydrox/Mg Hydrox/Simethicone (Mylanta) 30 ml DAILY PRN PO DYSPEPSIA 07/30/19 13:30 Albuterol Sulfate (Proventil Neb) 2.5 mg Q1HP PRN NEB SHORTNESS OF BREATH 07/30/19 13:30 Albuterol/ Ipratropium (Combivent Respimat 100-20mcg) 1 puff Q4H INH 07/30/19 11:30 07/30/19 23:48 DC 07/30/19 19:58 Albuterol/ Ipratropium (Duoneb (Ipr 0.5mg/Alb 2.5mg)) 3 ml RQ6H NEB 07/30/19 20:00 08/07/19 14:27 Apixaban (Eliquis) 5 mg BID PO 07/30/19 21:00 08/03/19 10:19 DC 08/02/19 20:29 Apixaban (Eliquis) 5 mg BID PO 08/04/19 21:00 08/07/19 09:40 Atenolol (Tenormin) 25 mg DAILY PO 08/05/19 09:00 08/07/19 09:40 Atenolol (Tenormin) 50 mg DAILY PO 07/31/19 09:00 08/03/19 10:19 DC 08/02/19 08:00 Azithromycin 500 mg/IV Miscellaneous Supplies 1 each/ Dextrose 255 ml @ 255 mls/hr Q24H IV 07/30/19 18:00 08/02/19 11:19 DC 08/01/19 17:40 Ceftriaxone Sodium 1 gm/ Dextrose 50 ml @ 100 mls/hr Q24H IV 07/30/19 17:00 08/02/19 11:19 DC 08/01/19 16:41 Chlorhexidine Gluconate (Peridex Oral Rinse) SWAB/BRUSH ORAL CAVITY BID MT 08/03/19 09:00 08/07/19 09:41 Codeine Phosphate/ Guaifenesin (Robitussin Ac) 5 ml Q4HP PRN PO COUGH 08/01/19 11:30 08/04/19 13:18 DC 08/02/19 12:18 Dextrose (Dextrose 50%) 25 ml ASDIRECTED PRN IV SEE LABEL COMMENTS 07/30/19 17:15 Docusate Sodium (Colace) 100 mg BID PO 07/30/19 21:00 08/06/19 21:55 Furosemide (LASIX injection) 40 mg DAILY IV 08/05/19 09:00 08/07/19 09:40 Furosemide (LASIX injection) 40 mg Q12H IV 07/31/19 01:00 07/31/19 10:37 DC 07/31/19 00:53 Furosemide (LASIX injection) 80 mg DAILY IV 08/03/19 09:00 08/04/19 18:26 DC 08/04/19 09:18 Furosemide (LASIX injection) 80 mg Q12H IV 07/31/19 13:00 08/02/19 11:21 DC 08/02/19 00:19 Glucagon (Glucagon) 1 mg ASDIRECTED PRN SC SEE LABEL COMMENTS 07/30/19 17:15 Glucose (Glucose) 16 GM ASDIRECTED PRN PO SEE LABEL COMMENTS 07/30/19 17:15 Guaifenesin (Mucinex Tab Er) 600 mg BID PO 08/04/19 09:00 08/07/19 09:39 Heparin Sodium (Porcine) (Heparin) 5,000 units Q12H SC 07/30/19 13:30 07/30/19 13:36 DC Heparin Sodium (Porcine) (Heparin) 5,000 units Q8H SQ 08/03/19 14:00 08/04/19 11:35 DC 08/04/19 06:40 Home Med (Med Rec Complete!) ASDIRECTED XX 07/30/19 13:00 07/30/19 12:56 DC Hydralazine HCl (Apresoline) 10 mg Q8HP PRN IV For BP systolic >180 mmHg 08/03/19 10:15 08/04/19 09:23 DC Insulin Human Lispro (HumaLOG INSULIN) SEE PROTOCOL TABLE AC SC 07/30/19 17:30 08/03/19 10:36 DC 08/02/19 17:54 Insulin Human Lispro (HumaLOG INSULIN) SEE PROTOCOL TABLE AC SC 08/04/19 17:30 08/07/19 12:21 Insulin Human Lispro (HumaLOG INSULIN) SEE PROTOCOL TABLE Q6H SC 08/03/19 12:00 08/04/19 13:03 DC 08/04/19 00:14 Insulin Human Lispro (HumaLOG INSULIN) SEE PROTOCOL TABLE QHS SC 07/30/19 21:00 08/03/19 10:36 DC Insulin Human Lispro (HumaLOG INSULIN) SEE PROTOCOL TABLE Q SC 08/04/19 21:00 Levetiracetam (Keppra) 750 mg BID PO 08/05/19 09:00 08/07/19 09:39 Levetiracetam 750 mg/Dextrose 107.5 ml @ 430 mls/hr Q12H IV 08/03/19 21:00 08/05/19 09:35 DC 08/04/19 20:20 Lorazepam (Ativan) 1 mg STAT STAT IV 08/03/19 09:51 08/03/19 09:55 DC 08/03/19 10:00 Magnesium Hydroxide (Milk Of Magnesia) 30 ml DAILY PRN PO CONSTIPATION 07/30/19 13:30 Methylprednisolone (SOLUmedrol) 80 mg Q8H IV 07/30/19 20:00 08/02/19 11:32 DC 08/02/19 03:58 Metoprolol Tartrate (Lopressor) 2.5 mg STAT STAT IV 08/03/19 05:33 08/03/19 05:35 DC 08/03/19 05:40 Nitroglycerin (Nitrobid 2%) 0.5 INCH Q6H TOP 07/30/19 12:00 08/02/19 11:20 DC 08/02/19 05:08 Pantoprazole Sodium (Protonix) 40 mg DAILY PO 07/31/19 09:00 08/03/19 10:19 DC 08/02/19 07:58 Pantoprazole Sodium (Protonix) 40 mg DAILY PO 08/05/19 09:00 08/07/19 09:40 Pantoprazole Sodium (Protonix) 40 mg Q24H IV 08/03/19 09:00 08/04/19 18:26 DC 08/04/19 09:18 Pravastatin Sodium (Pravachol) 40 mg QHS PO 07/30/19 21:00 08/03/19 18:05 DC 08/02/19 20:28 Pravastatin Sodium (Pravachol) 40 mg QHS PO 08/04/19 21:00 08/06/19 21:55 Prednisone (Deltasone) 40 mg DAILY PO 08/03/19 09:00 08/03/19 10:19 DC Ramelteon (Rozerem) 8 mg QHS PRN PO INSOMNIA 08/02/19 14:30 08/03/19 11:52 DC 08/02/19 14:54 Tamsulosin HCl (Flomax) 0.4 mg QHS PO 07/30/19 21:00 08/03/19 18:05 DC 08/02/19 20:29 Tamsulosin HCl (Flomax) 0.4 mg QHS PO 08/04/19 21:00 08/06/19 21:54 Allergies Coded Allergies: No Known Allergies (Unverified , 05/20/19) Earnestine Crook MD August 07, 2019 16:38
[2019-08-07 22:00] VITALS: BP 119/80
[2019-08-07] MEDS: TAMSULOSIN 0.4 MG CAP PO SCH (22:23)
[2019-08-07] MEDS: PRAVASTATIN 20 MG TAB PO SCH (22:23)
[2019-08-08] MEDS: IPRATROPIUM 0.5MG/ALBUTEROL 2.5MG INH SOL UD 3ML (DUONEB)(J7620) NEB SCH ×4 (01:01→19:50)
[2019-08-08 06:00] VITALS: BP 126/82
[2019-08-08 06:44] LABS: HEMATOCRIT 41.2 % (42.0-52.0); HEMOGLOBIN 12.2 g/dl (13.5-17.5); MEAN CORPUSCULAR HEMOGLOBIN 28.4 pg (27.0-33.0); MEAN CORPUSCULAR HGB CONC 29.6 g/dl (32.0-36.5); MEAN CORPUSCULAR VOLUME 95.8 fl (80.0-96.0); PLATELET COUNT, AUTOMATED 129 10^3/uL (150-450); WHITE BLOOD COUNT 5.7 10^3/uL (4.0-10.0)
[2019-08-08 07:15] LABS: ALBUMIN 2.6 GM/DL (3.2-5.2); ALT/SGPT 17 U/L (12-78); BILIRUBIN,TOTAL 0.7 MG/DL (0.2-1.0); BLOOD UREA NITROGEN 25 MG/DL (7-18); CALCIUM LEVEL 8.9 MG/DL (8.8-10.2); CARBON DIOXIDE LEVEL 41 MEQ/L (21-32); CHLORIDE LEVEL 95 MEQ/L (98-107); CREATININE FOR GFR 1.08 MG/DL (0.70-1.30); GLOMERULAR FILTRATION RATE > 60.0 (>35); GLUCOSE, FASTING 109 MG/DL (70-100); POTASSIUM SERUM 3.8 MEQ/L (3.5-5.1); SODIUM LEVEL 138 MEQ/L (136-145)
[2019-08-08] MEDS: APIXABAN 5 MG TAB (ELIQUIS) PO SCH ×2 (08:10→22:04)
[2019-08-08] MEDS: levETIRAcetam 250MG TABLET (KEPPRA) PO SCH ×2 (08:10→22:02)
[2019-08-08] MEDS: guaiFENesin ER 600 MG TAB PO SCH ×2 (08:10→22:02)
[2019-08-08] MEDS: atenoloL 25 MG TAB PO SCH (08:10)
[2019-08-08] MEDS: FUROSEMIDE 40 MG TAB PO SCH (08:10)
[2019-08-08] MEDS: HumaLOG INSULIN (NovoLOG) PER UNIT SC SCH ×4 (08:11→21:00)
[2019-08-08] MEDS: PANTOPRAZOLE 40MG TAB (PROTONIX) PO SCH (08:11)
[2019-08-08] MEDS: DOCUSATE SODIUM 100 MG CAP PO SCH ×2 (08:11→22:02)
[2019-08-08] MEDS: CHLORHEXIDINE GLUCONATE 0.12 % 15ML UDC (PERIDEX ORAL RINSE) MT SCH ×2 (10:33→22:03)
[2019-08-08 14:00] VITALS: BP 122/78
--- NOTE | 2019-08-08 15:53 | IPNPDOC ---
Date Seen The patient was seen on 08/08/19. Progress Note SUBJECTIVE: Further improved now only on 1 L NC, saturating well. -350 mL/24 hours tolerating daily lasix well. Currently denies chest pain, increased shortness of breath. OBJECTIVE: VITAL SIGNS: Please see below PHYSICAL EXAMINATION: CONSTITUTIONAL: Currently sitting up at bedside chair, AAOx3 EYES: PERRLA, EOM intact HENT, MOUTH: Normocephalic, atraumatic, moist mucous membranes, poor dentition NECK: SUPPLE, no JVD, no lymphadenopathy, no carotid bruit CV: irregularly irregular rhythm, rate controlled, S1S2 normal, no murmurs/rubs/gallops RESPIRATORY: CTAB. No wheezing, r/r GI: Colostomy bag RLQ, BS positive in 4 quadrants, soft, nontender, nondistended, no rebound or guarding, no organomegaly : Deferred MUSCULOSKELETAL: No cyanosis, clubbing, swelling, joint deformity, extremity edema INTEGUMENTARY:Mild redness in the groin, under abdominal folds. peripheral vascular changes in bilateral lower ext, healing ulcers at different stages in lower ext. no rashes NEUROLOGIC: cranial Nerves II-XII are intact, no focal deficits seen. Strength 5/ 5 in upper and lower extremities bilaterally, no sensory or motor deficits noted CURRENT MEDICATIONS: Please see below LABORATORY DATA: Please see below IMAGING: No new imaging. ASSESSMENT: 84 y/o M with acute respiratory failure multifactorial to CHF exacerbation, COPD, obesity hypoventilation syndrome. PLAN: 1. Acute respiratory failure likely multifactorial to acute on chronic CHF exacerbation, obesity hypoventilation syndrome, noncomplaince with CPAP for LIANNA and COPD. Much improved currently on now 1 L NC. C/w CPAP nightly, duoneb ATC, albuterol PRN, lasix, daily wts, close monitoring of I&O's. 2. 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 EEG above, will discuss with neurology after weekend to determine if patient should stay on antiseizure medications. C/w keppra 750 mg BID. As per neurology who is consulted, avoid ativan use- preferred to load with dilantin if seizure activity returns. 3. Physical deconditioning 2/2 to problems above. C/w PT/OT. 4. HTN. Stable. C/w home meds. 5. CKD Stage III. Cr wnl. Daily labs. 6. Atrial fibrillation, chronic. Controlled. C/w apixiban, BB. 7. Diabetes mellitus. Consistent carb diet, tolerating well. ISS, AC/HS blood sugar checks. 8. DVT px. Apixiban. DISPOSITION: Patient will require rehab prior to returning home. PT/OT. VS, I&O, 24H, Fishbone Vital Signs/I&O Vital Signs Date Time Temp Pulse Resp B/P (MAP) Pulse Ox O2 Delivery O2 Flow Rate FiO2 08/08/19 14:00 98.4 85 20 122/78 (93) 92 Nasal Cannula 1.0 08/04/19 20:55 30 I&O- Last 24 Hours up to 6 AM 08/08/19 06:00 Intake Total 1200 ml Output Total 1600 ml Balance -400 ml Laboratory Data 24H LABS Laboratory Tests 2 08/07/19 16:45: Bedside Glucose (Misc Panel) 122H 08/07/19 20:50: Bedside Glucose (Misc Panel) 115H 08/08/19 05:52: Nucleated Red Blood Cells % (auto) 0.0, Anion Gap 2L, Glomerular Filtration Rate > 60.0, Calcium Level 8.9, Total Bilirubin 0.7, Aspartate Amino Transf (AST/SGOT) 14, Alanine Aminotransferase (ALT/SGPT) 17, Alkaline Phosphatase 53, Total Protein 6.0L, Albumin 2.6L, Albumin/Globulin Ratio 0.76L 08/08/19 11:26: Bedside Glucose (Misc Panel) 142H CBC/BMP Laboratory Tests 08/08/19 05:52 Microbiology Microbiology 08/04/19 Gram Stain - Final, Complete 08/04/19 Sputum Culture - Final, Complete Current Medications Current Medications Medications (Trade) Dose Ordered Sig/Yao Route PRN Reason Start Time Stop Time Status Last Admin Dose Admin Acetaminophen (Tylenol Tab) 650 mg Q4H PRN PO PAIN OR FEVER 07/30/19 13:30 Al Hydrox/Mg Hydrox/Simethicone (Mylanta) 30 ml DAILY PRN PO DYSPEPSIA 07/30/19 13:30 Albuterol Sulfate (Proventil Neb) 2.5 mg Q1HP PRN NEB SHORTNESS OF BREATH 07/30/19 13:30 Albuterol/ Ipratropium (Combivent Respimat 100-20mcg) 1 puff Q4H INH 07/30/19 11:30 07/30/19 23:48 DC 07/30/19 19:58 Albuterol/ Ipratropium (Duoneb (Ipr 0.5mg/Alb 2.5mg)) 3 ml RQ6H NEB 07/30/19 20:00 08/08/19 14:23 Apixaban (Eliquis) 5 mg BID PO 07/30/19 21:00 08/03/19 10:19 DC 08/02/19 20:29 Apixaban (Eliquis) 5 mg BID PO 08/04/19 21:00 08/08/19 08:10 Atenolol (Tenormin) 25 mg DAILY PO 08/05/19 09:00 08/08/19 08:10 Atenolol (Tenormin) 50 mg DAILY PO 07/31/19 09:00 08/03/19 10:19 DC 08/02/19 08:00 Azithromycin 500 mg/IV Miscellaneous Supplies 1 each/ Dextrose 255 ml @ 255 mls/hr Q24H IV 07/30/19 18:00 08/02/19 11:19 DC 08/01/19 17:40 Ceftriaxone Sodium 1 gm/ Dextrose 50 ml @ 100 mls/hr Q24H IV 07/30/19 17:00 08/02/19 11:19 DC 08/01/19 16:41 Chlorhexidine Gluconate (Peridex Oral Rinse) SWAB/BRUSH ORAL CAVITY BID MT 08/03/19 09:00 08/08/19 10:33 Codeine Phosphate/ Guaifenesin (Robitussin Ac) 5 ml Q4HP PRN PO COUGH 08/01/19 11:30 08/04/19 13:18 DC 08/02/19 12:18 Dextrose (Dextrose 50%) 25 ml ASDIRECTED PRN IV SEE LABEL COMMENTS 07/30/19 17:15 Docusate Sodium (Colace) 100 mg BID PO 07/30/19 21:00 08/08/19 08:11 Furosemide (LASIX injection) 40 mg DAILY IV 08/05/19 09:00 08/08/19 07:53 DC 08/07/19 09:40 Furosemide (LASIX injection) 40 mg Q12H IV 07/31/19 01:00 07/31/19 10:37 DC 07/31/19 00:53 Furosemide (LASIX injection) 80 mg DAILY IV 08/03/19 09:00 08/04/19 18:26 DC 08/04/19 09:18 Furosemide (LASIX injection) 80 mg Q12H IV 07/31/19 13:00 08/02/19 11:21 DC 08/02/19 00:19 Furosemide (Lasix) 40 mg DAILY PO 08/08/19 09:00 08/08/19 08:10 Glucagon (Glucagon) 1 mg ASDIRECTED PRN SC SEE LABEL COMMENTS 07/30/19 17:15 Glucose (Glucose) 16 GM ASDIRECTED PRN PO SEE LABEL COMMENTS 07/30/19 17:15 Guaifenesin (Mucinex Tab Er) 600 mg BID PO 08/04/19 09:00 08/08/19 08:10 Heparin Sodium (Porcine) (Heparin) 5,000 units Q12H SC 07/30/19 13:30 07/30/19 13:36 DC Heparin Sodium (Porcine) (Heparin) 5,000 units Q8H SQ 08/03/19 14:00 08/04/19 11:35 DC 08/04/19 06:40 Home Med (Med Rec Complete!) ASDIRECTED XX 07/30/19 13:00 07/30/19 12:56 DC Hydralazine HCl (Apresoline) 10 mg Q8HP PRN IV For BP systolic >180 mmHg 08/03/19 10:15 08/04/19 09:23 DC Insulin Human Lispro (HumaLOG INSULIN) SEE PROTOCOL TABLE AC OK 07/30/19 17:30 08/03/19 10:36 DC 08/02/19 17:54 Insulin Human Lispro (HumaLOG INSULIN) SEE PROTOCOL TABLE AC OK 08/04/19 17:30 08/08/19 12:44 Insulin Human Lispro (HumaLOG INSULIN) SEE PROTOCOL TABLE Q6H SC 08/03/19 12:00 08/04/19 13:03 DC 08/04/19 00:14 Insulin Human Lispro (HumaLOG INSULIN) SEE PROTOCOL TABLE QHS SC 07/30/19 21:00 08/03/19 10:36 DC Insulin Human Lispro (HumaLOG INSULIN) SEE PROTOCOL TABLE QHS SC 08/04/19 21:00 Levetiracetam (Keppra) 750 mg BID PO 08/05/19 09:00 08/08/19 08:10 Levetiracetam 750 mg/Dextrose 107.5 ml @ 430 mls/hr Q12H IV 08/03/19 21:00 08/05/19 09:35 DC 08/04/19 20:20 Lorazepam (Ativan) 1 mg STAT STAT IV 08/03/19 09:51 08/03/19 09:55 DC 08/03/19 10:00 Magnesium Hydroxide (Milk Of Magnesia) 30 ml DAILY PRN PO CONSTIPATION 07/30/19 13:30 Methylprednisolone (SOLUmedrol) 80 mg Q8H IV 07/30/19 20:00 08/02/19 11:32 DC 08/02/19 03:58 Metoprolol Tartrate (Lopressor) 2.5 mg STAT STAT IV 08/03/19 05:33 08/03/19 05:35 DC 08/03/19 05:40 Nitroglycerin (Nitrobid 2%) 0.5 INCH Q6H TOP 07/30/19 12:00 08/02/19 11:20 DC 08/02/19 05:08 Pantoprazole Sodium (Protonix) 40 mg DAILY PO 07/31/19 09:00 08/03/19 10:19 DC 08/02/19 07:58 Pantoprazole Sodium (Protonix) 40 mg DAILY PO 08/05/19 09:00 08/08/19 08:11 Pantoprazole Sodium (Protonix) 40 mg Q24H IV 08/03/19 09:00 08/04/19 18:26 DC 08/04/19 09:18 Pravastatin Sodium (Pravachol) 40 mg QHS PO 07/30/19 21:00 08/03/19 18:05 DC 08/02/19 20:28 Pravastatin Sodium (Pravachol) 40 mg QHS PO 08/04/19 21:00 08/07/19 22:23 Prednisone (Deltasone) 40 mg DAILY PO 08/03/19 09:00 08/03/19 10:19 DC Ramelteon (Rozerem) 8 mg QHS PRN PO INSOMNIA 08/02/19 14:30 08/03/19 11:52 DC 08/02/19 14:54 Tamsulosin HCl (Flomax) 0.4 mg QHS PO 07/30/19 21:00 08/03/19 18:05 DC 08/02/19 20:29 Tamsulosin HCl (Flomax) 0.4 mg QHS PO 08/04/19 21:00 08/07/19 22:23 Allergies Coded Allergies: No Known Allergies (Unverified , 05/20/19) Earnestine Crook MD August 08, 2019 15:53
[2019-08-08] MEDS: NYSTATIN 100,000 UNITS/GM TOPICAL PWD 15 GM TOP SCH ×2 (16:00→22:03)
[2019-08-08 22:00] VITALS: BP 136/92
[2019-08-08] MEDS: VANICREAM MOISTURIZING SKIN CREAM 113GM TUBE TOP SCH (22:03)
[2019-08-08] MEDS: PRAVASTATIN 20 MG TAB PO SCH (22:03)
[2019-08-08] MEDS: TAMSULOSIN 0.4 MG CAP PO SCH (22:04)
[2019-08-09] MEDS: IPRATROPIUM 0.5MG/ALBUTEROL 2.5MG INH SOL UD 3ML (DUONEB)(J7620) NEB SCH ×3 (02:00→13:35)
[2019-08-09 06:00] VITALS: BP 139/81
[2019-08-09 06:11] LABS: BASO % 0.4 % (0.0-1.0); EOS # 0.3 10^3/uL (0.0-0.5); EOS % 4.7 % (0.0-3.0); HEMATOCRIT 41.3 % (42.0-52.0); HEMOGLOBIN 12.3 g/dl (13.5-17.5); LYMPH # 0.8 10^3/uL (1.5-5.0); LYMPH % 13.7 % (24.0-44.0); MEAN CORPUSCULAR HEMOGLOBIN 28.5 pg (27.0-33.0); MEAN CORPUSCULAR HGB CONC 29.8 g/dl (32.0-36.5); MEAN CORPUSCULAR VOLUME 95.8 fl (80.0-96.0); MONO # 0.5 10^3/uL (0.0-0.8); MONO % 9.5 % (0.0-5.0); NEUTROPHILS % 71.2 % (36.0-66.0); PLATELET COUNT, AUTOMATED 142 10^3/uL (150-450); RED BLOOD COUNT 4.31 10^6/uL (4.30-6.10); WHITE BLOOD COUNT 5.6 10^3/uL (4.0-10.0)
[2019-08-09 06:25] LABS: BLOOD UREA NITROGEN 24 MG/DL (7-18); CALCIUM LEVEL 8.8 MG/DL (8.8-10.2); CARBON DIOXIDE LEVEL 42 MEQ/L (21-32); CHLORIDE LEVEL 97 MEQ/L (98-107); CREATININE FOR GFR 1.12 MG/DL (0.70-1.30); GLOMERULAR FILTRATION RATE > 60.0 (>35); GLUCOSE, FASTING 102 MG/DL (70-100); POTASSIUM SERUM 4.1 MEQ/L (3.5-5.1); SODIUM LEVEL 141 MEQ/L (136-145)
[2019-08-09] MEDS: HumaLOG INSULIN (NovoLOG) PER UNIT SC SCH ×2 (07:30→12:00)
[2019-08-09] MEDS: APIXABAN 5 MG TAB (ELIQUIS) PO SCH (08:26)
[2019-08-09] MEDS: guaiFENesin ER 600 MG TAB PO SCH (08:30)
[2019-08-09] MEDS: levETIRAcetam 250MG TABLET (KEPPRA) PO SCH (08:30)
[2019-08-09] MEDS: DOCUSATE SODIUM 100 MG CAP PO SCH (08:30)
[2019-08-09] MEDS: FUROSEMIDE 40 MG TAB PO SCH (08:30)
[2019-08-09] MEDS: PANTOPRAZOLE 40MG TAB (PROTONIX) PO SCH (08:30)
[2019-08-09 08:31] VITALS: BP 130/77
[2019-08-09] MEDS: atenoloL 25 MG TAB PO SCH (08:31)
[2019-08-09] MEDS: NYSTATIN 100,000 UNITS/GM TOPICAL PWD 15 GM TOP SCH (08:31)
[2019-08-09] MEDS: CHLORHEXIDINE GLUCONATE 0.12 % 15ML UDC (PERIDEX ORAL RINSE) MT SCH (08:32)
[2019-08-09] MEDS: VANICREAM MOISTURIZING SKIN CREAM 113GM TUBE TOP SCH (08:33)
[2019-08-09] MEDS ORDERED: NYST10006 TOP (13:59)
[2019-08-09] MEDS ORDERED: ALB2.5NEB NEB (13:59)
[2019-08-09] MEDS ORDERED: INSUHUMDS SC ×2 (13:59)
[2019-08-09] MEDS ORDERED: KEPP250T5 PO (13:59)
[2019-08-09] MEDS ORDERED: IPRA0.00 NEB (13:59)
[2019-08-09] MEDS ORDERED: ACET1TAB55 PO (13:59)
[2019-08-09] MEDS ORDERED: DOCU100C16 PO ×2 (13:59→16:08)
[2019-08-09] MEDS ORDERED: ATEN25TA PO (13:59)
[2019-08-09 14:00] VITALS: BP 125/76
--- NOTE | 2019-08-09 15:43 | DS.PDOC ---
Discharge Summary General Date of Admission July 30, 2019 at 13:20 Date of Discharge 08/09/19 Primary Care Physician: Jr Maher Collins Attending Physician: ANGEL QUIROGA MD Specialist/Consultants Involve: Marc Juarez DO, [facility] Discharge Summary HISTORY OF PRESENT ILLNESS: Patient is an 83 years old white male with past medical history of rectal cancer status post chemoradiation, status post colostomy, atrial fibrillation, PPM, COPD, hypertension, dyslipidemia, PAD, diabetes mellitus, chronic diastolic heart failure, chronic CKD stage III, alcohol, tobacco abuse in the past, obesity, abdominal hernia, was and recently discharged home after he was treated with dysuria and had a stay in acute rehabilitation unit for a little while, came back again with chief complaints of cough and increasing shortness of breath since last few days. Patient was a unable to give admitter a good history secondary to his medical status. Ultimately patient was admitted to the hospitalist's service for further workup and treatment for acute on chronic CHF exacerbation, COPD exacerbation. HOSPITAL COURSE: Over the course of the first several days of hospital admission, the patient responded to therapy appropriately. Early AM on 08/03/19, the overnight team was called at 5:30 due to increased altered mental status and unresponsiveness at times. He was pulling off his mask, CPAP. Blood pressure systolic was over 200 mmHg this AM. He was given 2.5 mg of Lopressor which improved BP. ABG showed pH 7.350, pCO2 70.5. It was noted that the patient was having left upper and left lower extremity rigidity, twitching. He was increasingly confused on examination by myself, agitated and not following most of our commands. His blood pressure was unable to be assessed but upon review of the overnight VS, had been as high as 200 mmHg systolic. CXR showed CHF pattern with cardiomegaly, vascular congestion and cephalization, and a small right pleural effusion. Lactic acid returned elevated at 5.5, troponin negative. 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 The patient was given 1 g Keppra IV and 1 mg IV Ativan. He was transferred to the ICU where he was later assessed by pulmonary. Repeat ABG showed pH 7.489, PCO2 52.4 and later PCO2 increasing to 75.5. The patient was placed on BiPAP and sent for CT of the head. CT was negative for acute intracranial abdomen modalities. Neurology was consulted early on this case and was suspicious of focal tonic motor seizures. Patient was started on Keppra twice a day. Blood pressure dropped after initiation of BiPAP early; however, increased along with an improvement of other vital signs. He had EEG which showed no epileptiform abnormalities were seen. Patient had no other witnessed seizure-like activity while admitted. CT head showed generalized volume loss but no acute intracranial abnormality. Several days later he was doing well off ATC Bipap, tolerating 1-2 L NC, tolerating pills and diet well. He continued to use CPAP nightly and was AAOx3. Sputum Cx gram pos cocci in pairs; however, very recent CXR neg for PNA and later only grew normal kelsi. He was transferred to the floor from ICU where he continued to make improvements. PT/OT worked with him and found him in need of continued services. On 08/09/19 patient was transferred to ARU for continued PT/OT, rehabilitation services. At the time of discharge, patient denied chest pain, shortness of breath, n/v/d, fevers or chills and was only on 1 L NC. REVIEW OF SYSTEMS: CONSTITUTIONAL: Denies unexplained weight gain or weight loss, loss of appetite, fever, night sweats EYES: Denies eye drainage, eye pain, visual changes, dry/irritated eye EARS, NOSE, MOUTH, THROAT: Denies difficulty hearing, ringing in ears, mouth sores, loose teeth, sore throat, facial numbness or pain NECK: Denies swollen glands CARDIOVASCULAR: Denies irregular heartbeat, racing heart, chest pains, swelling of feet or legs, pain in legs with walking RESPIRATORY: Denies increased shortness of breath, night sweats, wheezing, sputum production, oxygen at home, coughing up blood, cough lasting > 1 month GASTROINTESTINAL: Denies abdominal pain, constipation, bloody stool, diarrhea, heartburn, nausea, vomiting GENITOURINARY: Denies painful urination, bloody urine, frequent urination, urgency, leaking urine, impotence MUSCULOSKELETAL: Denies joint pain, muscle pain, leg swelling INTEGUMENTARY: Denies rash, itching, new skin lesion, change in existing skin lesion, hair loss or increase, breast changes. NEUROLOGICAL: Denies headaches, dizziness, difficulty walking, numbness or tingling PSYCHIATRIC: Denies depression, anxiety, recurrent bad thoughts, mood swings, hallucinations PAST MEDICAL HISTORY: Rectal cancer, status post chemotherapy, radiation and colostomy, atrial fibrillation, permanent pacemaker, COPD, hypertension, dyslipidemia, PAD, diabetes mellitus, diastolic heart failure which is chronic in nature, chronic k idney disease stage III, tobacco abuse in the past, obesity, and abdominal hernias PAST SURGICAL HISTORY: Colostomy and permanent pacemaker placement FAMILY HISTORY: Noncontributory SOCIAL HISTORY: Smoker: former Smoker Alcohol: Denies Drugs: denies ALLERGIES: Please see below. PHYSICAL EXAMINATION: CONSTITUTIONAL: Currently sitting up at bedside chair, AAOx3, pleasant EYES: PERRLA, EOM intact HENT, MOUTH: Normocephalic, atraumatic, moist mucous membranes, poor dentition NECK: SUPPLE, no JVD, no lymphadenopathy, no carotid bruit CV: irregularly irregular rhythm, rate controlled, S1S2 normal, no murmurs/rubs/gallops RESPIRATORY: CTAB. No wheezing, r/r GI: Colostomy bag RLQ, BS positive in 4 quadrants, soft, nontender, nondistended, no rebound or guarding, no organomegaly : Deferred MUSCULOSKELETAL: No cyanosis, clubbing, swelling, joint deformity, extremity edema INTEGUMENTARY:Mild redness in the groin, under abdominal folds. Peripheral vascular changes in bilateral lower ext, healed ulcers at different stages in lower ext. no rashes NEUROLOGIC: cranial Nerves II-XII are intact, no focal deficits seen. Strength 5/ 5 in upper and lower extremities bilaterally, no sensory or motor deficits noted DISCHARGE MEDICATIONS: Please see below LABORATORY DATA: Please see below IMAGING: EEG: EEG in awake, drowsy states, stage I sleep is abnormal due to presence of generalized slowing and disorganization of background consistent with nonspecific diffuse cerebral dysfunction such as seen in encephalopathy due to multiple potential causes including toxic, metabolic, infectious, multifocal structural brain abnormalities. No epileptiform abnormalities were seen. Clinical correlation is recommended. CT head: Generalized volume loss. Vascular calcification. No acute intracranial abnormality. CXR: CHF pattern with cardiomegaly, vascular congestion and cephalization, and a small right pleural effusion. No pneumothorax seen. ASSESSMENT: 84 y/o M with acute respiratory failure multifactorial to CHF exacerbation, COPD, obesity hypoventilation syndrome. PLAN: 1. Acute respiratory failure likely multifactorial to acute on chronic CHF exacerbation, obesity hypoventilation syndrome, noncomplaince with CPAP for LIANNA and COPD. Much improved currently on now 1 L NC. C/w CPAP nightly, duoneb ATC, albuterol PRN, lasix, daily wts, close monitoring of I&O's. 2. 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 EEG above, will discuss with neurology after weekend to determine if patient should stay on antiseizure medications. C/w keppra 750 mg BID. As per neurology who is consulted, avoid ativan use- preferred to load with dilantin if seizure activity returns. Prior to discharge, would recommend calling neurology to discuss need to continue keppra and if they would like to see him as o/p in their office. 3. Physical deconditioning 2/2 to problems above. C/w PT/OT. 4. HTN. Stable. C/w home meds. 5. CKD Stage III. Cr wnl. Daily labs. 6. Atrial fibrillation, chronic. Controlled. C/w apixiban, BB. 7. Diabetes mellitus. Consistent carb diet, tolerating well. ISS, AC/HS blood sugar checks. 8. DVT px. Apixiban. DISPOSITION: Patient will require rehab prior to returning home. PT/OT. Discharging to ARU today. TIME SPENT ON DISCHARGE: Greater than 35 minutes. Vital Signs/I&Os Vital Signs Date Time Temp Pulse Resp B/P (MAP) Pulse Ox O2 Delivery O2 Flow Rate FiO2 08/09/19 14:00 97.6 106 20 125/76 (92) 94 Nasal Cannula 1.0 08/04/19 20:55 30 I&O- Last 24 Hours up to 6 AM 08/09/19 06:00 Intake Total 600 ml Output Total 1450 ml Balance -850 ml Laboratory Data Labs 24H Laboratory Tests 2 08/08/19 16:44: Bedside Glucose (Misc Panel) 96 08/08/19 20:27: Bedside Glucose (Misc Panel) 120H 08/09/19 05:07: Immature Granulocyte % (Auto) 0.5, Neutrophils (%) (Auto) 71.2H, Lymphocytes (%) (Auto) 13.7L, Monocytes (%) (Auto) 9.5H, Eosinophils (%) (Auto) 4.7H, Basophils (%) (Auto) 0.4, Neutrophils # (Auto) 4.0, Lymphocytes # (Auto) 0.8L, Monocytes # (Auto) 0.5, Eosinophils # (Auto) 0.3, Basophils # (Auto) 0.0, Nucleated Red Blood Cells % (auto) 0.0, Anion Gap 2L, Glomerular Filtration Rate > 60.0, Calcium Level 8.8 08/09/19 11:38: Bedside Glucose (Misc Panel) 102 CBC/BMP Laboratory Tests 08/09/19 05:07 FSBS Laboratory Tests Test 08/08/19 16:44 08/08/19 20:27 08/09/19 11:38 Range/Units Bedside Glucose (Misc Panel) 96 120 102 83-110 MG/DL Microbiology Microbiology 08/04/19 Gram Stain - Final, Complete 08/04/19 Sputum Culture - Final, Complete Discharge Medications Scheduled Apixaban (Eliquis) 5 Mg Tablet, 5 MG PO BID, (Reported) Atenolol (Atenolol) 25 Mg Tablet, 25 MG PO DAILY Calcium Carbonate/Vitamin D3 (Calcium 600-Vit D3 200 Tablet) 1 Tab Tab, 1 TAB PO DAILY, (Reported) Docusate Sodium (Docusate Sodium) 100 Mg Capsule, 100 MG PO BID Esomeprazole Magnesium (Esomeprazole Magnesium) 40 Mg Capsule.dr, 40 MG PO DAILY, (Reported) Furosemide (Furosemide) 40 Mg Tablet, 40 MG PO DAILY, (Reported) Insulin Human Lispro (Humalog) 100 Unit/1 Ml Vial, 0 UNITS SC AC Insulin Human Lispro (Humalog) 100 Unit/1 Ml Vial, 0 UNITS SC QHS Ipratropium/Albuterol Sulfate (Iprat-Albut 0.5-3(2.5) mg/3 ml) 3 Ml Ampul.neb, 3 ML NEB RQ6H Levetiracetam (Keppra) 250 Mg Tablet, 750 MG PO BID Nystatin (Nystop) 60 Gm Powder, 1 DOSE TOP TID Pravastatin Sodium (Pravastatin Sodium) 40 Mg Tablet, 40 MG PO QHS, (Reported) Tamsulosin HCl (Flomax) 0.4 Mg Capsule, 0.4 MG PO QHS, (Reported) Scheduled PRN Acetaminophen (Acetaminophen) 325 Mg Tablet, 650 MG PO Q4H PRN for PAIN OR FEVER Albuterol Sulfate (Albuterol Sulfate) 2.5 Mg/0.5 Ml Vial.neb, 2.5 MG NEB Q1HP PRN for SHORTNESS OF BREATH Miscellaneous Medications [Patient Comment] , (Reported) UNABLE TO VERIFY MEDICATIONS WITH PATIENT. PATIENT'S VERIFIED PATIENT'S PILL BOTTLES BUT UNSURE IF HE TOOK MEDICATOINS THIS MORNING Allergies Coded Allergies: No Known Allergies (Unverified , 05/20/19) Earnestine Crook MD August 09, 2019 15:43
== END 2019-08-09 15:10 | DRG 291 ==
LOC: M ED 11:12 → EDBD 11:12 → M ED INP 13:20 → ENRESERV 14:35 → M PCU 16:08 → M ICU 08-03 10:17 → M PCU 08-05 18:29 → M MSPAV 08-07 15:05
PROVIDERS: ADMIT Internal Medicine; ATTEND Internal Medicine
DX: I13.0 Hypertensive heart and chronic kidney disease with heart failure and stage 1 through stage 4 chronic kidney disease, or unspecified chronic kidney disease (principal); I50.33 Acute on chronic diastolic (congestive) heart failure; J96.01 Acute respiratory failure with hypoxia; J96.02 Acute respiratory failure with hypercapnia; J44.1 Chronic obstructive pulmonary disease with (acute) exacerbation; Z68.41 Body mass index [BMI] 40.0-44.9, adult; E87.2 Acidosis; I67.4 Hypertensive encephalopathy; E66.2 Morbid (severe) obesity with alveolar hypoventilation; J81.1 Chronic pulmonary edema; I48.20 Chronic atrial fibrillation, unspecified; R56.9 Unspecified convulsions; N18.3 Chronic kidney disease, stage 3 (moderate); E11.9 Type 2 diabetes mellitus without complications; Z91.19 Patient's noncompliance with other medical treatment and regimen; G47.33 Obstructive sleep apnea (adult) (pediatric); Z79.899 Other long term (current) drug therapy; Z85.048 Personal history of other malignant neoplasm of rectum, rectosigmoid junction, and anus; Z93.3 Colostomy status; E78.5 Hyperlipidemia, unspecified; F17.200 Nicotine dependence, unspecified, uncomplicated; F10.10 Alcohol abuse, uncomplicated; Z95.0 Presence of cardiac pacemaker

== ENCOUNTER 2019-08-09 13:47 | Inpatient (IN) | payer MEDICARE, OTHER ==
[~2019-08-09] VITALS: Ht 170.2 cm; Wt 109.5 kg
[~2019-08-09 13:47] MED LIST changes: +PATIENT COMMENT
[2019-08-09] MEDS ORDERED: NYST10006 TOP (13:59)
[2019-08-09] MEDS ORDERED: ALB2.5NEB NEB (13:59)
[2019-08-09] MEDS ORDERED: INSUHUMDS SC ×2 (13:59)
[2019-08-09] MEDS ORDERED: IPRA0.00 NEB (13:59)
[2019-08-09] MEDS ORDERED: DOCU100C16 PO ×2 (13:59→16:08)
[2019-08-09] MEDS ORDERED: ATEN25TA PO (13:59)
[2019-08-09] MEDS ORDERED: ACET1TAB55 PO (13:59)
[2019-08-09] MEDS ORDERED: KEPP250T5 PO (13:59)
[2019-08-09 16:04] VITALS: BP 131/78
[2019-08-09] MEDS ORDERED: GLUCOSE 4GM CHEW TABLET PO PRN (16:45)
[2019-08-09] MEDS ORDERED: GLUCAGON INJ 1MG VIAL SC PRN (16:45)
[2019-08-09] MEDS ORDERED: DEXTROSE 50% 50 ML SYRINGE IV PRN (16:45)
[2019-08-09] MEDS: HumaLOG INSULIN (NovoLOG) PER UNIT SC SCH ×2 (18:18→21:00)
[2019-08-09] MEDS: IPRATROPIUM 0.5MG/ALBUTEROL 2.5MG INH SOL UD 3ML (DUONEB)(J7620) NEB SCH (19:12)
[2019-08-09 20:00] VITALS: BP 120/68
[2019-08-09] MEDS: NYSTATIN 100,000 UNITS/GM TOPICAL PWD 15 GM TOP SCH (20:51)
[2019-08-09] MEDS: guaiFENesin ER 600 MG TAB PO SCH (20:51)
[2019-08-09] MEDS: APIXABAN 5 MG TAB (ELIQUIS) PO SCH (20:51)
[2019-08-09] MEDS: levETIRAcetam 250MG TABLET (KEPPRA) PO SCH (20:51)
[2019-08-09] MEDS: TAMSULOSIN 0.4 MG CAP PO SCH (20:51)
[2019-08-09] MEDS: CHLORHEXIDINE GLUCONATE 0.12 % 15ML UDC (PERIDEX ORAL RINSE) MT SCH (20:51)
[2019-08-09] MEDS: PRAVASTATIN 20 MG TAB PO SCH (20:51)
[2019-08-09] MEDS: VANICREAM MOISTURIZING SKIN CREAM 113GM TUBE TOP SCH (20:51)
[2019-08-10 06:00] VITALS: BP 108/62
[2019-08-10 06:29] LABS: BASO % 0.5 % (0.0-1.0); EOS # 0.2 10^3/uL (0.0-0.5); EOS % 4.2 % (0.0-3.0); LYMPH # 0.9 10^3/uL (1.5-5.0); LYMPH % 15.3 % (24.0-44.0); MEAN CORPUSCULAR HEMOGLOBIN 28.8 pg (27.0-33.0); MEAN CORPUSCULAR VOLUME 95.9 fl (80.0-96.0); MONO # 0.5 10^3/uL (0.0-0.8); MONO % 8.3 % (0.0-5.0); PLATELET COUNT, AUTOMATED 144 10^3/uL (150-450); RED BLOOD COUNT 4.17 10^6/uL (4.30-6.10); WHITE BLOOD COUNT 5.7 10^3/uL (4.0-10.0)
[2019-08-10 06:57] LABS: ALBUMIN 2.5 GM/DL (3.2-5.2); ALT/SGPT 18 U/L (12-78); BILIRUBIN,TOTAL 0.6 MG/DL (0.2-1.0); BLOOD UREA NITROGEN 24 MG/DL (7-18); CALCIUM LEVEL 8.4 MG/DL (8.8-10.2); CARBON DIOXIDE LEVEL 39 MEQ/L (21-32); CHLORIDE LEVEL 97 MEQ/L (98-107); CREATININE FOR GFR 1.11 MG/DL (0.70-1.30); GLOMERULAR FILTRATION RATE > 60.0 (>35); GLUCOSE, FASTING 102 MG/DL (70-100); POTASSIUM SERUM 3.9 MEQ/L (3.5-5.1); SODIUM LEVEL 139 MEQ/L (136-145); TOTAL PROTEIN 5.6 GM/DL (6.4-8.2)
[2019-08-10] MEDS: IPRATROPIUM 0.5MG/ALBUTEROL 2.5MG INH SOL UD 3ML (DUONEB)(J7620) NEB SCH ×3 (07:20→19:04)
[2019-08-10] MEDS: CHLORHEXIDINE GLUCONATE 0.12 % 15ML UDC (PERIDEX ORAL RINSE) MT SCH ×2 (08:16→20:43)
[2019-08-10] MEDS: HumaLOG INSULIN (NovoLOG) PER UNIT SC SCH ×4 (08:16→20:38)
[2019-08-10] MEDS: CALCIUM/VITAMIN D 500 MG TAB PO SCH (08:16)
[2019-08-10] MEDS: guaiFENesin ER 600 MG TAB PO SCH ×2 (08:16→20:43)
[2019-08-10] MEDS: FUROSEMIDE 40 MG TAB PO SCH (08:17)
[2019-08-10] MEDS: APIXABAN 5 MG TAB (ELIQUIS) PO SCH ×2 (08:18→20:43)
[2019-08-10] MEDS: levETIRAcetam 250MG TABLET (KEPPRA) PO SCH ×2 (08:18→20:43)
[2019-08-10] MEDS: atenoloL 25 MG TAB PO SCH (08:19)
[2019-08-10] MEDS: PANTOPRAZOLE 40MG TAB (PROTONIX) PO SCH (08:19)
[2019-08-10] MEDS: NYSTATIN 100,000 UNITS/GM TOPICAL PWD 15 GM TOP SCH ×2 (08:20→20:44)
[2019-08-10] MEDS: VANICREAM MOISTURIZING SKIN CREAM 113GM TUBE TOP SCH ×2 (08:20→20:44)
[2019-08-10 14:00] VITALS: BP 107/61
--- NOTE | 2019-08-10 14:40 | HPEPDOC ---
[facility] Note DATE OF ADMISSION: 08-09-19 DATE OF SERVICE: 08-10-19 TIME OF ADMISSION: Please refer to physician's admission order. SOURCE OF ADMISSION INFORMATION: [facility] record and patient CHIEF COMPLAINT: CHF exacerbation HISTORY OF PRESENT ILLNESS: 83M pmh rectal cancer s/p chemoradiation, colostomy, Afib, pacemaker, COPD, HTN, HLD, DM (diet controlled) with peripheral polyneuropathy, PAD, chronic diastolic CHF, CKD, obesity presented to [facility] ED on 07-30-19 complaining of cough and shortness of breath. CXR showed, There is cardiomegaly and evidence of i nterstitial edema. There is a possible developing right lower lobe opacity which could represent either asymmetric pulmonary edema, subsegmental atelectatic change, or developing pneumonia or a combination thereof. He was treated with diuretics, IV solumedrol, and started on empiric antibiotics for presumed community acquired pneumonia. He had episodes of encephalopathy, with elevated blood pressures, and seizure-like activity on 08/03/19 for which CTH showed no acute intracranial finding and was started on Keppra. EEG was negative for epileptiform activity. He was weaned from BiPAP during the day to nasal canula 02 and continued CPAP at night. He was evaluated by therapy, noted to be deconditioned and well below his prior level of function, deemed medically appropriate for discharge to ARU on 08-09-19. EVIEW OF SYSTEMS: The following is a completed review of systems and has been reviewed. Review of systems otherwise unremarkable. PAIN: Patient self reports no pain EYES: No recent vision changes EARS, NOSE, & THROAT: No throat pain, or dysphagia, or rhinorrhea CARDIOVASCULAR: Denies chest pain or palpitations PULMONARY: Denies shortness of breath GASTROINTESTINAL: Denies constipation/diarrhea GENITOURINARY: +dysuria MUSCULOSKELETAL: generalized weakness NEUROLOGICAL:+ peripheral polyneuropathy HEMATOLOGICAL: denies easy bruising SKIN: hyperkeratotic calves PSYCHIATRIC: Unremarkable All other review of systems found to be negative. PAST MEDICAL HISTORY: as per HPI PAST SURGICAL HISTORY: as per HPI ALLERGIES: Please see below. MEDICATIONS: Please see below. SOCIAL HISTORY: Former smoker, no etoh/illicit drugs DIET: low salt, fluid restrict PHYSICAL EXAMINATION: VITAL SIGNS: Please see below. GENERAL: Pleasant and cooperative. No acute distress. obese HEENT: PERRL. Extraocular movements intact. Clear conjunctiva CARDIOVASCULAR: Regular rate and rhythm. No murmurs, rubs, or gallops, +PM LUNGS: Clear to auscultation bilaterally. No wheezes. No rhonchi ABDOMEN: Soft, nontender, nondistended. Positive bowel sounds. Normal active bowel sounds +colostomy NEUROLOGICAL: Alert and oriented times three. Cranial nerves II through XII grossly intact. Sensation diminished to light touch in stocking fashion EXTREMITIES: 5\5 strength bilateral upper extremities. 4\5 strength right lower extremity. 4/5 strength in left lower extremity. SKIN: hyperkeratotic calves, blanchable sacral erythema LABORATORY DATA: Please see below. IMAGING:Imaging documentation personally reviewed by record FUNCTIONAL STATUS: Premorbid: Modified Independent with all activities of daily life as well as mobility On Admission: Standby assist ambulating with RW, functional transfers, grooming, max assist for toileting and lower body dressing GOALS: Mod-I community distances, stairs, functional transfers, dressing, bathing, toileting ASSESSMENT:84-year-old M with past medical history of diastolic CHF who presents status post CHF exacerbation PLAN: 1. Rehab- PT/OT advance gait and ADL training, strengthen/stretch/maintain ROM all 4 limbs, teach energy conservation techniques 2. 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 C[place]diac: chronic diastolic CHF with recent exacerbation, c/u fluid restriction, daily weights, lasix -Afib c/u atenolol and eliquis -HTN c/u BP meds, medicine consulted to assist in overall management -HLD c/u statin 4. Resp: hx of COPD s/p course of antibiotics for CAP, c/u breathing treatments, guaifenesin, supplemental 02 -goal to wean off 02 prior to d/c home -LIANNA c/u CPAP at night 5. : BPH c/u flomax, monitor PVRs, will order UA/Ucx due to dysuria 6. GI px: protonix 7. DVT pps: on eliquis, teds 8. Pain: tylneol prn 9. Dispo: TBD POST ADMISSION PHYSICIAN EVALUATION: Medical and functional status: Description of medical status, medical assessment: As above. Rehabilitation diagnosis and current and prior cold morbid medical conditions as above. Risk of complications and plans to mitigate them as above. Description of functional status current status is as above. Prior status as above. Status compared to preadmission: There are no clinically significant differences between the patient's current status and the information described on the preadmission screening document. Treatment plan anticipated: Treatment plan is as described above. Required disciplines including physical therapy, occupational therapy, others as noted above. Intensity of services: 3 hours a day, 6 days a week. Special considerations: There are no specific special or safety considerations that would likely preclude immediate implementation of an intensive rehabilitation program or subsequently influence the plan of care. ATTESTATION: Considering all the information above, it is my best judgment that this patient requires intensive rehabilitation therapy as described above and an inpatient hospital environment due to the complexity of nursing, medical, and rehabilitation needs required by the patient. Furthermore, this patient can reasonably be expected to participate in an benefit from an inpatient rehabilitation stay with an interdisciplinary team approach to the delivery of rehabilitation care under the direction and supervision of rehabilitation physician. PROGNOSIS:good ESTIMATED LENGTH OF STAY:7-10 days. PROJECTED DISCHARGE DESTINATION: Home with family support and any durable medical equipment required to increase functional safety and mobility. TIME SPENT COUNSELING AND COORDINATING INITIAL CARE: Greater than 70 minutes. Vital Signs Vital Sign - Last 24 Hours 08/09/19 08/09/19 08/09/19 08/10/19 16:04 20:00 20:00 06:00 Temp 98.2 97.7 97.6 Pulse 91 89 74 Resp 18 20 18 B/P (MAP) 131/78 (95) 120/68 (85) 108/62 (77) Pulse Ox 90 94 91 O2 Delivery Nasal Cannula Nasal Cannula Nasal Cannula O2 Flow Rate 1.0 1.0 1.0 1.0 08/10/19 08:19 Pulse 87 B/P (MAP) 116/63 Laboratory Data CBC/BMP Laboratory Tests 08/10/19 06:10 Labs 24H Laboratory Tests 2 08/09/19 17:35: Bedside Glucose (Misc Panel) 113H 08/09/19 19:42: Bedside Glucose (Misc Panel) 131H 08/10/19 06:10: Immature Granulocyte % (Auto) 0.7, Neutrophils (%) (Auto) 71.0H, Lymphocytes (%) (Auto) 15.3L, Monocytes (%) (Auto) 8.3H, Eosinophils (%) (Auto) 4.2H, Basophils (%) (Auto) 0.5, Neutrophils # (Auto) 4.0, Lymphocytes # (Auto) 0.9L, Monocytes # (Auto) 0.5, Eosinophils # (Auto) 0.2, Basophils # (Auto) 0.0, Nucleated Red Blood Cells % (auto) 0.0, Anion Gap 3L, Glomerular Filtration Rate > 60.0, Calcium Level 8.4L, Total Bilirubin 0.6, Aspartate Amino Transf (AST/SGOT) 11, Alanine Aminotransferase (ALT/SGPT) 18, Alkaline Phosphatase 56, Total Protein 5.6L, Albumin 2.5L, Albumin/Globulin Ratio 0.81L 08/10/19 12:16: Bedside Glucose (Misc Panel) 87 FSBS Laboratory Tests Test 08/09/19 17:35 08/09/19 19:42 08/10/19 12:16 Range/Units Bedside Glucose (Misc Panel) 113 131 87 83-110 MG/DL Home Medications Scheduled Apixaban (Eliquis) 5 Mg Tablet, 5 MG PO BID, (Reported) Atenolol (Atenolol) 25 Mg Tablet, 25 MG PO DAILY Calcium Carbonate/Vitamin D3 (Calcium 600-Vit D3 200 Tablet) 1 Tab Tab, 1 TAB PO DAILY, (Reported) Docusate Sodium (Docusate Sodium) 100 Mg Capsule, 100 MG PO BID, (Reported) Esomeprazole Magnesium (Esomeprazole Magnesium) 40 Mg Capsule.dr, 40 MG PO DAILY, (Reported) Furosemide (Furosemide) 40 Mg Tablet, 40 MG PO DAILY, (Reported) Insulin Human Lispro (Humalog) 100 Unit/1 Ml Vial, 0 UNITS SC AC Insulin Human Lispro (Humalog) 100 Unit/1 Ml Vial, 0 UNITS SC QHS Ipratropium/Albuterol Sulfate (Iprat-Albut 0.5-3(2.5) mg/3 ml) 3 Ml Ampul.neb, 3 ML NEB RQ6H Levetiracetam (Keppra) 250 Mg Tablet, 750 MG PO BID Nystatin (Nystop) 60 Gm Powder, 1 DOSE TOP TID Pravastatin Sodium (Pravastatin Sodium) 40 Mg Tablet, 40 MG PO QHS, (Reported) Tamsulosin HCl (Flomax) 0.4 Mg Capsule, 0.4 MG PO QHS, (Reported) Scheduled PRN Acetaminophen (Acetaminophen) 325 Mg Tablet, 650 MG PO Q4H PRN for PAIN OR FEVER Albuterol Sulfate (Albuterol Sulfate) 2.5 Mg/0.5 Ml Vial.neb, 2.5 MG NEB Q1HP PRN for SHORTNESS OF BREATH Allergies Coded Allergies: No Known Allergies (Unverified , 05/20/19) A-FIB/CHADSVASC A-FIB History Current/History of A-Fib/PAF?: Yes Current PO Anticoag Therapy: Yes NATA VANESSA MD August 10, 2019 14:40
[2019-08-10 20:00] VITALS: BP 127/73
[2019-08-10] MEDS: PRAVASTATIN 20 MG TAB PO SCH (20:43)
[2019-08-10] MEDS: TAMSULOSIN 0.4 MG CAP PO SCH (20:43)
[2019-08-11 06:00] VITALS: BP 110/72
[2019-08-11 06:46] LABS: BASO % 0.4 % (0.0-1.0); EOS # 0.2 10^3/uL (0.0-0.5); EOS % 4.3 % (0.0-3.0); HEMATOCRIT 38.8 % (42.0-52.0); LYMPH # 0.8 10^3/uL (1.5-5.0); LYMPH % 14.7 % (24.0-44.0); MEAN CORPUSCULAR HEMOGLOBIN 29.7 pg (27.0-33.0); MEAN CORPUSCULAR HGB CONC 30.9 g/dl (32.0-36.5); MONO # 0.5 10^3/uL (0.0-0.8); MONO % 9.2 % (0.0-5.0); NEUTROPHILS # 3.8 10^3/uL (1.5-8.5); NEUTROPHILS % 70.8 % (36.0-66.0); PLATELET COUNT, AUTOMATED 149 10^3/uL (150-450); RED BLOOD COUNT 4.04 10^6/uL (4.30-6.10); WHITE BLOOD COUNT 5.3 10^3/uL (4.0-10.0)
[2019-08-11 07:07] LABS: BLOOD UREA NITROGEN 22 MG/DL (7-18); CALCIUM LEVEL 8.9 MG/DL (8.8-10.2); CARBON DIOXIDE LEVEL 37 MEQ/L (21-32); CHLORIDE LEVEL 99 MEQ/L (98-107); GLOMERULAR FILTRATION RATE > 60.0 (>35); GLUCOSE, FASTING 101 MG/DL (70-100); POTASSIUM SERUM 4.1 MEQ/L (3.5-5.1); SODIUM LEVEL 140 MEQ/L (136-145)
[2019-08-11] MEDS: IPRATROPIUM 0.5MG/ALBUTEROL 2.5MG INH SOL UD 3ML (DUONEB)(J7620) NEB SCH ×3 (07:11→19:32)
[2019-08-11] MEDS: HumaLOG INSULIN (NovoLOG) PER UNIT SC SCH (08:36)
[2019-08-11] MEDS: CALCIUM/VITAMIN D 500 MG TAB PO SCH (08:36)
[2019-08-11] MEDS: guaiFENesin ER 600 MG TAB PO SCH ×2 (08:36→21:28)
[2019-08-11] MEDS: PANTOPRAZOLE 40MG TAB (PROTONIX) PO SCH (08:36)
[2019-08-11] MEDS: CHLORHEXIDINE GLUCONATE 0.12 % 15ML UDC (PERIDEX ORAL RINSE) MT SCH ×2 (08:37→21:27)
[2019-08-11] MEDS: atenoloL 25 MG TAB PO SCH (08:37)
[2019-08-11] MEDS: levETIRAcetam 250MG TABLET (KEPPRA) PO SCH ×2 (08:37→21:27)
[2019-08-11] MEDS: FUROSEMIDE 40 MG TAB PO SCH (08:37)
[2019-08-11] MEDS: APIXABAN 5 MG TAB (ELIQUIS) PO SCH ×2 (08:37→21:28)
[2019-08-11] MEDS: NYSTATIN 100,000 UNITS/GM TOPICAL PWD 15 GM TOP SCH ×2 (08:38→21:28)
[2019-08-11] MEDS: VANICREAM MOISTURIZING SKIN CREAM 113GM TUBE TOP SCH ×2 (08:38→21:28)
--- NOTE | 2019-08-11 12:29 | CR ---
DATE OF CONSULTATION: 08/10/2019 REFERRING PHYSICIAN: Dr. Lucie Lea REASON FOR CONSULTATION: Management of chronic medical problems. HISTORY OF PRESENTING ILLNESS: 84-year-old male admitted to the medical floor on 07/30/2019, discharged 08/09/2019, with complaints of cough and worsening shortness of breath for a few days. The patient was found to have hypercapnic respiratory failure, was put on continuous positive airway pressure (CPAP). Blood pressure was 200 mmHg. Chest x-ray showed congestive heart failure (CHF) with cardiomegaly and vascular congestion. CT of the head was negative for acute intracranial hemorrhage with questionable seizure activity. The patient was given 1 gram IV Keppra and Ativan, was transferred to intensive care unit (ICU) with improvement in the patient's carbon dioxide levels from 70 to 52.4 after bilevel positive airway pressure (BiPAP) was resumed. Electroencephalogram (EEG) showed no epileptiform abnormality. CT of the head was negative. Sputum culture showed gram positive cocci in pairs. Chest x-ray was negative for pneumonia and sputum culture was normal kelsi. The patient was transferred from ICU to medical-surgical floor and required rehab services. The patient has a known history of chronic kidney disease (CKD) stage III, hypertension, atrial fibrillation (AFib) which is rate controlled on beta blockade and continued on apixaban, and diabetes. PAST MEDICAL HISTORY: 1. Hypertension. 2. Chronic kidney disease, stage III. 3. Rectal cancer status post chemotherapy, radiation, colostomy. 4. Atrial fibrillation. 5. Permanent pacemaker. 6. Chronic obstructive pulmonary disease (COPD). 7. Hypertension. 8. Dyslipidemia. 9. Peripheral artery disease (PAD). 10. Obesity hypoventilation syndrome. 11. Diabetes. 12. Diastolic heart failure. 13. Tobacco abuse in the past. 14. Obesity. 15. Abdominal hernias. PAST SURGICAL HISTORY: 1. Permanent pacemaker. 2. Colostomy. FAMILY HISTORY: Noncontributory due to age. SOCIAL HISTORY: A former smoker. No alcohol or drug use. ALLERGIES: NO KNOWN DRUG ALLERGIES. CURRENT HOSPITAL MEDICATIONS: - Protonix 40 daily - atenolol 25 daily - Lasix 40 daily - calcium with vitamin D 500 mg daily - Mucinex 600 twice a day - Eliquis 5 twice a day - pyridoxine 15 mL twice a day - Emolium cream bilateral legs topically twice a day - Humalog sliding scale - Keppra 750 by mouth twice a day - nystatin groin topically twice a day - pravastatin 40 mg at bedtime - Flomax 0.4 at bedtime - DuoNeb 3 mL routine three times a day - Humalog sliding scale before food and nightly - Tylenol 650 every 4 as needed - hypoglycemic protocol REVIEW OF SYSTEMS: Negative aside positive finding on history of present illness (HPI). PHYSICAL EXAMINATION: Temperature 97.6, pulse 74, respiratory rate 18, blood pressure 108/62, 91% on 1 liter nasal cannula. Generally no jugular venous distention (JVD). No thyromegaly. No cervical lymphadenopathy under HEENT. Heart: S1, S2. Irregularly irregular. No murmurs, rubs, or gallops. Lungs are clear to auscultation. No wheezing, rales, or rhonchi. Abdomen: Soft, nontender, nondistended. Positive bowel sounds times four quadrants. Right lower quadrant colostomy. No rebound, guarding, or hepatosplenomegaly. Extremities: No cyanosis, clubbbing, or pitting edema. LABORATORY DATA: White count 5.7, hemoglobin 12, hematocrit 40, platelet count 144. Sodium 139, potassium 3.9, chloride 97, bicarbonate 39, BUN 24, creatinine 1.1, glucose 102, calcium 8.4, total bilirubin 0.6, AST 11, ALT 18, alkaline phosphatase 56, total protein 5.6, albumin of 2.5. ASSESSMENT AND PLAN: 84-year-old male with a history of diastolic heart failure, chronic kidney disease, stage III, hypertension, atrial fibrillation, pacemaker, chronic obstructive pulmonary disease, dyslipidemia, rectal cancer status post chemoradiation and colostomy, diabetes, peripheral arterial disease, obesity hypoventilation syndrome, tobacco abuse, abdominal hernias in the past, recently treated for congestive heart failure (CHF) exacerbation with acute on chronic hypercapnic respiratory failure requiring BiPAP therapy, status post focal tonic motor seizures, on Keppra, with CT being negative for acute intracranial abnormality. ACTIVE ISSUES: 1. 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 The patient had an EEG, which was negative. He is continued on Keppra 750 mg twice a day. Outpatient followup with neurology once patient is discharged from the hospital. 2. Acute hypercapnic respiratory failure requiring BiPAP therapy with altered mental status secondary to acute on chronic diastolic heart failure, obesity hypoventilation syndrome and noncompliance with CPAP from obstructive sleep apnea (LIANNA) and COPD. The patient had a chest x-ray, which was negative for acute pneumonia. Sputum culture showed normal kelsi. He is currently stable. We will keep on his home dose of diuretics, continue to monitor daily weights, fluid restrict if more than 2 pound weight gain, continue on 2 gram sodium diet and consistent carbohydrate diet. 3. Chronic kidney disease, stage III. At baseline creatinine. 4. Thrombocytopenia. Monitor patient's platelet. No acute signs of bleeding. 5. AFib. Currently rate controlled on beta blockade and apixaban for prophylaxis. 6. Diabetes. Continue consistent carbohydrate diet, fingersticks before food and nightly, as well as hypoglycemic protocol. 7. COPD. Currently stable. Continue on home inhalers. 8. Obesity hypoventilation syndrome requiring CPAP, stable. 9. LIANNA. Continue on CPAP. MTDD
[2019-08-11 14:00] VITALS: BP 130/72
--- NOTE | 2019-08-11 15:14 | IPNPDOC ---
PM&R Progress Note DATE OF SERVICE: August 11, 2019 Validation Intern Progress Note Subjective: Patient reporting he feels well today, his burning with urination has resolved. REVIEW OF SYSTEMS: The following is a completed review of systems and has been reviewed. Review of systems otherwise unremarkable. PAIN: Patient self reports no pain EYES: No recent vision changes EARS, NOSE, & THROAT: No throat pain, or dysphagia, or rhinorrhea CARDIOVASCULAR: Denies chest pain or palpitations PULMONARY: Denies shortness of breath GASTROINTESTINAL: Denies constipation/diarrhea GENITOURINARY: +dysuria (improved) MUSCULOSKELETAL: generalized weakness NEUROLOGICAL:+ peripheral polyneuropathy HEMATOLOGICAL: denies easy bruising SKIN: hyperkeratotic calves PSYCHIATRIC: Unremarkable All other review of systems found to be negative. PHYSICAL EXAMINATION: VITAL SIGNS: Please see below. GENERAL: Pleasant and cooperative. No acute distress. obese HEENT: PERRL. Extraocular movements intact. Clear conjunctiva CARDIOVASCULAR: Regular rate and rhythm. No murmurs, rubs, or gallops, +PM LUNGS: Clear to auscultation bilaterally. No wheezes. No rhonchi ABDOMEN: Soft, nontender, nondistended. Positive bowel sounds. Normal active bowel sounds +colostomy NEUROLOGICAL: Alert and oriented times three. Cranial nerves II through XII grossly intact. Sensation diminished to light touch in stocking fashion EXTREMITIES: 5\5 strength bilateral upper extremities. 4\5 strength right lower extremity. 4/5 strength in left lower extremity. SKIN: hyperkeratotic calves, blanchable sacral erythema ASSESSMENT:84-year-old M with past medical history of diastolic CHF who presents status post CHF exacerbation PLAN: 1. Rehab- PT/OT advance gait and ADL training, strengthen/stretch/maintain ROM all 4 limbs, teach energy conservation techniques 2. 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 CArdiac: chronic diastolic CHF with recent exacerbation, c/u fluid restriction, daily weights, lasix -Afib c/u atenolol and eliquis -HTN c/u BP meds, medicine consulted to assist in overall management -HLD c/u statin 4. Resp: hx of COPD s/p course of antibiotics for CAP, c/u breathing treatments, guaifenesin, supplemental 02 -goal to wean off 02 prior to d/c home -LIANNA c/u CPAP at night 5. : BPH c/u flomax, monitor PVRs, UA negative and dysuria improved today 6. GI px: protonix 7. DVT pps: on eliquis, teds 8. Pain: tylneol prn 9. Dispo: TBD Allergies Coded Allergies: No Known Allergies (Unverified , 05/20/19) Vital Signs Vital Signs Date Time Temp Pulse Resp B/P (MAP) Pulse Ox O2 Delivery O2 Flow Rate FiO2 08/11/19 14:00 97.9 89 18 130/72 (91) 92 Room Air 08/10/19 20:00 1.0 Laboratory Data CBC/BMP Laboratory Tests 08/11/19 06:28 Labs 24H Laboratory Tests 2 08/10/19 15:57: Urine Color STRAW, Urine Appearance CLEAR, Urine pH 8.0, Urine Specific [place] 1.005, Urine Protein NEGATIVE, Urine Glucose (UA) NEGATIVE, Urine Ketones NEGATIVE, Urine Blood NEGATIVE, Urine Nitrite NEGATIVE, Urine Bilirubin NEGATIVE, Urine Urobilinogen 0.2, Urine Leukocyte Esterase NEGATIVE, Urine WBC (Auto) 2, Urine RBC (Auto) 2, Urine Hyaline Casts (Auto) 0, Urine Bacteria (Auto) NEGATIVE, Urine Squamous Epithelial Cells 0, Urine Sperm (Auto) 08/10/19 16:48: Bedside Glucose (Misc Panel) 137H 08/10/19 19:42: Bedside Glucose (Misc Panel) 128H 08/11/19 06:28: Immature Granulocyte % (Auto) 0.6, Neutrophils (%) (Auto) 70.8H, Lymphocytes (%) (Auto) 14.7L, Monocytes (%) (Auto) 9.2H, Eosinophils (%) (Auto) 4.3H, Basophils (%) (Auto) 0.4, Neutrophils # (Auto) 3.8, Lymphocytes # (Auto) 0.8L, Monocytes # (Auto) 0.5, Eosinophils # (Auto) 0.2, Basophils # (Auto) 0.0, Nucleated Red Blood Cells % (auto) 0.0, Anion Gap 4L, Glomerular Filtration Rate > 60.0, Calcium Level 8.9 Current Medications Current Medications Current Medications Medications (Trade) Dose Ordered Sig/Yao Route PRN Reason Start Time Stop Time Status Last Admin Dose Admin Acetaminophen (Tylenol Tab) 650 mg Q4HP PRN PO fever/MILD PAIN (PS 1-4) 08/09/19 16:45 Albuterol/ Ipratropium (Duoneb (Ipr 0.5mg/Alb 2.5mg)) 3 ml RTID NEB 08/09/19 20:00 08/11/19 13:31 Apixaban (Eliquis) 5 mg BID PO 08/09/19 21:00 08/11/19 08:37 Atenolol (Tenormin) 25 mg DAILY PO 08/10/19 09:00 08/11/19 08:37 Calcium/Vitamin D (Oscal D) 500 mg DAILY PO 08/10/19 09:00 08/11/19 08:36 Chlorhexidine Gluconate (Peridex Oral Rinse) 15 ml BID MT 08/09/19 21:00 08/11/19 08:37 Dextrose (Dextrose 50%) 25 ml ASDIRECTED PRN IV SEE LABEL COMMENTS 08/09/19 16:45 Emollient Cream (Vanicream) TO BILATERAL LEGS BID TOP 08/09/19 21:00 08/11/19 08:38 Furosemide (Lasix) 40 mg DAILY PO 08/10/19 09:00 08/11/19 08:37 Glucagon (Glucagon) 1 mg ASDIRECTED PRN SC SEE LABEL COMMENTS 08/09/19 16:45 Glucose (Glucose) 16 GM ASDIRECTED PRN PO SEE LABEL COMMENTS 08/09/19 16:45 Guaifenesin (Mucinex Tab Er) 600 mg BID PO 08/09/19 21:00 08/11/19 08:36 Home Med (Med Rec Complete!) ASDIRECTED XX 08/09/19 16:15 08/09/19 16:09 DC Insulin Human Lispro (HumaLOG INSULIN) SEE PROTOCOL TABLE AC SC 08/09/19 17:30 08/11/19 10:36 DC 08/11/19 08:36 Insulin Human Lispro (HumaLOG INSULIN) SEE PROTOCOL TABLE QHS SC 08/09/19 21:00 08/11/19 10:36 DC Levetiracetam (Keppra) 750 mg BID PO 08/09/19 21:00 08/11/19 08:37 Nystatin (Mycostatin Powder, Nystop) GROIN BID TOP 08/09/19 21:00 08/11/19 08:38 Pantoprazole Sodium (Protonix) 40 mg DAILY PO 08/10/19 09:00 08/11/19 08:36 Pravastatin Sodium (Pravachol) 40 mg QHS PO 08/09/19 21:00 08/10/19 20:43 Tamsulosin HCl (Flomax) 0.4 mg QHS PO 08/09/19 21:00 08/10/19 20:43 NATA VANESSA MD August 11, 2019 15:14
[2019-08-11 20:00] VITALS: BP 105/68
[2019-08-11] MEDS: ACETAMINOPHEN TAB 650MG DOSE (2X325MG) PO PRN (21:28)
[2019-08-11] MEDS: TAMSULOSIN 0.4 MG CAP PO SCH (21:28)
[2019-08-11] MEDS: PRAVASTATIN 20 MG TAB PO SCH (21:28)
[2019-08-12] MEDS: IPRATROPIUM 0.5MG/ALBUTEROL 2.5MG INH SOL UD 3ML (DUONEB)(J7620) NEB SCH ×3 (07:24→19:20)
[2019-08-12] MEDS: CHLORHEXIDINE GLUCONATE 0.12 % 15ML UDC (PERIDEX ORAL RINSE) MT SCH ×2 (09:10→21:02)
[2019-08-12] MEDS: atenoloL 25 MG TAB PO SCH (09:11)
[2019-08-12] MEDS: guaiFENesin ER 600 MG TAB PO SCH ×2 (09:11→21:02)
[2019-08-12] MEDS: FUROSEMIDE 40 MG TAB PO SCH (09:11)
[2019-08-12] MEDS: APIXABAN 5 MG TAB (ELIQUIS) PO SCH ×2 (09:11→21:02)
[2019-08-12] MEDS: CALCIUM/VITAMIN D 500 MG TAB PO SCH (09:11)
[2019-08-12] MEDS: levETIRAcetam 250MG TABLET (KEPPRA) PO SCH ×2 (09:12→21:02)
[2019-08-12] MEDS: ACETAMINOPHEN TAB 650MG DOSE (2X325MG) PO PRN (09:12)
[2019-08-12] MEDS: PANTOPRAZOLE 40MG TAB (PROTONIX) PO SCH (09:12)
[2019-08-12] MEDS: VANICREAM MOISTURIZING SKIN CREAM 113GM TUBE TOP SCH ×2 (09:17→21:03)
[2019-08-12] MEDS: NYSTATIN 100,000 UNITS/GM TOPICAL PWD 15 GM TOP SCH ×2 (09:17→21:02)
[2019-08-12 14:00] VITALS: BP 122/74
--- NOTE | 2019-08-12 14:39 | IPNPDOC ---
PM&R Progress Note DATE OF SERVICE: August 12, 2019 Photographic Double Progress Note Subjective: Patient reporting he is in good spirits and trying to use his incentive spirometer every hour while he is awake. REVIEW OF SYSTEMS: The following is a completed review of systems and has been reviewed. Review of systems otherwise unremarkable. PAIN: Patient self reports no pain EYES: No recent vision changes EARS, NOSE, & THROAT: No throat pain, or dysphagia, or rhinorrhea CARDIOVASCULAR: Denies chest pain or palpitations PULMONARY: Denies shortness of breath GASTROINTESTINAL: Denies constipation/diarrhea GENITOURINARY: +dysuria (resolved) MUSCULOSKELETAL: generalized weakness NEUROLOGICAL:+ peripheral polyneuropathy HEMATOLOGICAL: denies easy bruising SKIN: hyperkeratotic calves PSYCHIATRIC: Unremarkable All other review of systems found to be negative. PHYSICAL EXAMINATION: VITAL SIGNS: Please see below. GENERAL: Pleasant and cooperative. No acute distress. obese HEENT: PERRL. Extraocular movements intact. Clear conjunctiva CARDIOVASCULAR: Regular rate and rhythm. No murmurs, rubs, or gallops, +PM LUNGS: Clear to auscultation bilaterally. No wheezes. No rhonchi ABDOMEN: Soft, nontender, nondistended. Positive bowel sounds. Normal active bowel sounds +colostomy NEUROLOGICAL: Alert and oriented times three. Cranial nerves II through XII grossly intact. Sensation diminished to light touch in stocking fashion EXTREMITIES: 5\5 strength bilateral upper extremities. 4\5 strength right lower extremity. 4/5 strength in left lower extremity. SKIN: hyperkeratotic calves, blanchable sacral erythema ASSESSMENT:84-year-old M with past medical history of diastolic CHF who presents status post CHF exacerbation PLAN: 1. Rehab- PT/OT advance gait and ADL training, strengthen/stretch/maintain ROM all 4 limbs, teach energy conservation techniques 2. 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 CArdiac: chronic diastolic CHF with recent exacerbation, c/u fluid restriction, daily weights, lasix -Afib c/u atenolol and eliquis -HTN c/u BP meds, medicine consulted to assist in overall management -HLD c/u statin 4. Resp: hx of COPD s/p course of antibiotics for CAP, c/u breathing treatments, guaifenesin, supplemental 02 -goal to wean off 02 prior to d/c home -LIANNA c/u CPAP at night 5. : BPH c/u flomax, monitor PVRs, UA negative and dysuria resolved 6. GI px: protonix 7. DVT pps: on eliquis, teds 8. Pain: tylneol prn 9. Dispo: 08-17-19 to home, progressing towards goals Allergies Coded Allergies: No Known Allergies (Unverified , 05/20/19) Vital Signs Vital Signs Date Time Temp Pulse Resp B/P (MAP) Pulse Ox O2 Delivery O2 Flow Rate FiO2 08/12/19 09:11 70 110/72 08/11/19 21:00 2.0 08/11/19 20:00 97.9 18 95 Room Air Laboratory Data Labs 24H Laboratory Tests 2 08/11/19 16:51: Bedside Glucose (Misc Panel) 100 Current Medications Current Medications Current Medications Medications (Trade) Dose Ordered Sig/Yao Route PRN Reason Start Time Stop Time Status Last Admin Dose Admin Acetaminophen (Tylenol Tab) 650 mg Q4HP PRN PO fever/MILD PAIN (PS 1-4) 08/09/19 16:45 08/12/19 09:12 Albuterol/ Ipratropium (Duoneb (Ipr 0.5mg/Alb 2.5mg)) 3 ml RTID NEB 08/09/19 20:00 08/12/19 07:24 Apixaban (Eliquis) 5 mg BID PO 08/09/19 21:00 08/12/19 09:11 Atenolol (Tenormin) 25 mg DAILY PO 08/10/19 09:00 08/12/19 09:11 Calcium/Vitamin D (Oscal D) 500 mg DAILY PO 08/10/19 09:00 08/12/19 09:11 Chlorhexidine Gluconate (Peridex Oral Rinse) 15 ml BID MT 08/09/19 21:00 08/12/19 09:10 Dextrose (Dextrose 50%) 25 ml ASDIRECTED PRN IV SEE LABEL COMMENTS 08/09/19 16:45 Emollient Cream (Vanicream) TO BILATERAL LEGS BID TOP 08/09/19 21:00 08/12/19 09:17 Furosemide (Lasix) 40 mg DAILY PO 08/10/19 09:00 08/12/19 09:11 Glucagon (Glucagon) 1 mg ASDIRECTED PRN SC SEE LABEL COMMENTS 08/09/19 16:45 Glucose (Glucose) 16 GM ASDIRECTED PRN PO SEE LABEL COMMENTS 08/09/19 16:45 Guaifenesin (Mucinex Tab Er) 600 mg BID PO 08/09/19 21:00 08/12/19 09:11 Home Med (Med Rec Complete!) ASDIRECTED XX 08/09/19 16:15 08/09/19 16:09 DC Insulin Human Lispro (HumaLOG INSULIN) SEE PROTOCOL TABLE AC SC 08/09/19 17:30 08/11/19 10:36 DC 08/11/19 08:36 Insulin Human Lispro (HumaLOG INSULIN) SEE PROTOCOL TABLE QHS SC 08/09/19 21:00 08/11/19 10:36 DC Levetiracetam (Keppra) 750 mg BID PO 08/09/19 21:00 08/12/19 09:12 Nystatin (Mycostatin Powder, Nystop) GROIN BID TOP 08/09/19 21:00 08/12/19 09:17 Pantoprazole Sodium (Protonix) 40 mg DAILY PO 08/10/19 09:00 08/12/19 09:12 Pravastatin Sodium (Pravachol) 40 mg QHS PO 08/09/19 21:00 08/11/19 21:28 Tamsulosin HCl (Flomax) 0.4 mg QHS PO 08/09/19 21:00 08/11/19 21:28 NATA VANESSA MD August 12, 2019 14:39
[2019-08-12 20:00] VITALS: BP 116/63
[2019-08-12] MEDS: PRAVASTATIN 20 MG TAB PO SCH (21:02)
[2019-08-12] MEDS: TAMSULOSIN 0.4 MG CAP PO SCH (21:02)
[2019-08-13 06:00] VITALS: BP 115/60
[2019-08-13 06:43] LABS: BASO % 0.6 % (0.0-1.0); EOS # 0.2 10^3/uL (0.0-0.5); EOS % 3.5 % (0.0-3.0); HEMATOCRIT 38.9 % (42.0-52.0); HEMOGLOBIN 11.6 g/dl (13.5-17.5); LYMPH # 0.7 10^3/uL (1.5-5.0); LYMPH % 14.1 % (24.0-44.0); MEAN CORPUSCULAR HEMOGLOBIN 28.6 pg (27.0-33.0); MEAN CORPUSCULAR HGB CONC 29.8 g/dl (32.0-36.5); MONO # 0.3 10^3/uL (0.0-0.8); NEUTROPHILS # 3.9 10^3/uL (1.5-8.5); NEUTROPHILS % 75.4 % (36.0-66.0); PLATELET COUNT, AUTOMATED 145 10^3/uL (150-450); RED BLOOD COUNT 4.05 10^6/uL (4.30-6.10); WHITE BLOOD COUNT 5.2 10^3/uL (4.0-10.0)
[2019-08-13 07:04] LABS: BLOOD UREA NITROGEN 26 MG/DL (7-18); CALCIUM LEVEL 8.4 MG/DL (8.8-10.2); CARBON DIOXIDE LEVEL 35 MEQ/L (21-32); CHLORIDE LEVEL 100 MEQ/L (98-107); CREATININE FOR GFR 1.22 MG/DL (0.70-1.30); GLOMERULAR FILTRATION RATE > 60.0 (>35); GLUCOSE, FASTING 99 MG/DL (70-100); SODIUM LEVEL 139 MEQ/L (136-145)
[2019-08-13] MEDS: IPRATROPIUM 0.5MG/ALBUTEROL 2.5MG INH SOL UD 3ML (DUONEB)(J7620) NEB SCH ×3 (07:17→19:49)
[2019-08-13] MEDS: CHLORHEXIDINE GLUCONATE 0.12 % 15ML UDC (PERIDEX ORAL RINSE) MT SCH ×3 (09:00→20:08)
[2019-08-13] MEDS: NYSTATIN 100,000 UNITS/GM TOPICAL PWD 15 GM TOP SCH ×2 (09:00→20:06)
[2019-08-13] MEDS: levETIRAcetam 250MG TABLET (KEPPRA) PO SCH ×2 (10:33→20:05)
[2019-08-13] MEDS: CALCIUM/VITAMIN D 500 MG TAB PO SCH (10:33)
[2019-08-13] MEDS: APIXABAN 5 MG TAB (ELIQUIS) PO SCH ×2 (10:33→20:05)
[2019-08-13] MEDS: FUROSEMIDE 40 MG TAB PO SCH (10:33)
[2019-08-13] MEDS: guaiFENesin ER 600 MG TAB PO SCH ×2 (10:33→20:05)
[2019-08-13] MEDS: atenoloL 25 MG TAB PO SCH (10:34)
[2019-08-13] MEDS: PANTOPRAZOLE 40MG TAB (PROTONIX) PO SCH (10:34)
[2019-08-13] MEDS: VANICREAM MOISTURIZING SKIN CREAM 113GM TUBE TOP SCH ×2 (10:35→20:06)
[2019-08-13 14:00] VITALS: BP 109/58
[2019-08-13 15:11] VITALS: BP 109/58
--- NOTE | 2019-08-13 16:30 | IPNPDOC ---
PM&R Progress Note DATE OF SERVICE: August 13, 2019 Parachute Folder Progress Note Subjective: Patient reporting he is well and that his legs feel less swollen now that he is wearing the TEDs. REVIEW OF SYSTEMS: The following is a completed review of systems and has been reviewed. Review of systems otherwise unremarkable. PAIN: Patient self reports no pain EYES: No recent vision changes EARS, NOSE, & THROAT: No throat pain, or dysphagia, or rhinorrhea CARDIOVASCULAR: Denies chest pain or palpitations PULMONARY: Denies shortness of breath GASTROINTESTINAL: Denies constipation/diarrhea GENITOURINARY: +dysuria (resolved) MUSCULOSKELETAL: generalized weakness NEUROLOGICAL:+ peripheral polyneuropathy HEMATOLOGICAL: denies easy bruising SKIN: hyperkeratotic calves PSYCHIATRIC: Unremarkable All other review of systems found to be negative. PHYSICAL EXAMINATION: VITAL SIGNS: Please see below. GENERAL: Pleasant and cooperative. No acute distress. obese HEENT: PERRL. Extraocular movements intact. Clear conjunctiva CARDIOVASCULAR: Regular rate and rhythm. No murmurs, rubs, or gallops, +PM LUNGS: Clear to auscultation bilaterally. No wheezes. No rhonchi ABDOMEN: Soft, nontender, nondistended. Positive bowel sounds. Normal active bowel sounds +colostomy NEUROLOGICAL: Alert and oriented times three. Cranial nerves II through XII grossly intact. Sensation diminished to light touch in stocking fashion EXTREMITIES: 5\5 strength bilateral upper extremities. 4\5 strength right lower extremity. 4/5 strength in left lower extremity. (bilat LE edema better with TEDs) SKIN: hyperkeratotic calves, blanchable sacral erythema ASSESSMENT:84-year-old M with past medical history of diastolic CHF who presents status post CHF exacerbation PLAN: 1. Rehab- PT/OT advance gait and ADL training, strengthen/stretch/maintain ROM all 4 limbs, teach energy conservation techniques, ambulating with RW 2. 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 CArdiac: chronic diastolic CHF with recent exacerbation, c/u fluid restriction, daily weights, lasix -Afib c/u atenolol and eliquis -HTN c/u BP meds, medicine consulted to assist in overall management -HLD c/u statin 4. Resp: hx of COPD s/p course of antibiotics for CAP, c/u breathing treatments, guaifenesin, supplemental 02 -goal to wean off 02 prior to d/c home -LIANNA c/u CPAP at night 5. : BPH c/u flomax, monitor PVRs, UA negative and dysuria resolved 6. GI px: protonix 7. DVT pps: on eliquis, teds 8. Pain: tylneol prn 9. Dispo: 08-17-19 to home, progressing towards goals Allergies Coded Allergies: No Known Allergies (Unverified , 05/20/19) Vital Signs Vital Signs Date Time Temp Pulse Resp B/P (MAP) Pulse Ox O2 Delivery O2 Flow Rate FiO2 08/13/19 15:11 98.0 93 17 109/58 91 Room Air 2.0 Laboratory Data CBC/BMP Laboratory Tests 08/13/19 06:15 Labs 24H Laboratory Tests 2 08/12/19 16:34: Bedside Glucose (Misc Panel) 115H 08/13/19 06:03: Bedside Glucose (Misc Panel) 114H 08/13/19 06:15: Immature Granulocyte % (Auto) 0.4, Neutrophils (%) (Auto) 75.4H, Lymphocytes (%) (Auto) 14.1L, Monocytes (%) (Auto) 6.0H, Eosinophils (%) (Auto) 3.5H, Basophils (%) (Auto) 0.6, Neutrophils # (Auto) 3.9, Lymphocytes # (Auto) 0.7L, Monocytes # (Auto) 0.3, Eosinophils # (Auto) 0.2, Basophils # (Auto) 0.0, Nucleated Red Blood Cells % (auto) 0.0, Anion Gap 4L, Glomerular Filtration Rate > 60.0, Calcium Level 8.4L Current Medications Current Medications Current Medications Medications (Trade) Dose Ordered Sig/Yao Route PRN Reason Start Time Stop Time Status Last Admin Dose Admin Acetaminophen (Tylenol Tab) 650 mg Q4HP PRN PO fever/MILD PAIN (PS 1-4) 08/09/19 16:45 08/12/19 09:12 Albuterol/ Ipratropium (Duoneb (Ipr 0.5mg/Alb 2.5mg)) 3 ml RTID NEB 08/09/19 20:00 08/13/19 12:59 Apixaban (Eliquis) 5 mg BID PO 08/09/19 21:00 08/13/19 10:33 Atenolol (Tenormin) 25 mg DAILY PO 08/10/19 09:00 08/13/19 10:34 Calcium/Vitamin D (Oscal D) 500 mg DAILY PO 08/10/19 09:00 08/13/19 10:33 Chlorhexidine Gluconate (Peridex Oral Rinse) 15 ml BID MT 08/09/19 21:00 08/13/19 09:00 Dextrose (Dextrose 50%) 25 ml ASDIRECTED PRN IV SEE LABEL COMMENTS 08/09/19 16:45 Emollient Cream (Vanicream) TO BILATERAL LEGS BID TOP 08/09/19 21:00 08/13/19 10:35 Furosemide (Lasix) 40 mg DAILY PO 08/10/19 09:00 08/13/19 10:33 Glucagon (Glucagon) 1 mg ASDIRECTED PRN SC SEE LABEL COMMENTS 08/09/19 16:45 Glucose (Glucose) 16 GM ASDIRECTED PRN PO SEE LABEL COMMENTS 08/09/19 16:45 Guaifenesin (Mucinex Tab Er) 600 mg BID PO 08/09/19 21:00 08/13/19 10:33 Home Med (Med Rec Complete!) ASDIRECTED XX 08/09/19 16:15 08/09/19 16:09 DC Insulin Human Lispro (HumaLOG INSULIN) SEE PROTOCOL TABLE AC SC 08/09/19 17:30 08/11/19 10:36 DC 08/11/19 08:36 Insulin Human Lispro (HumaLOG INSULIN) SEE PROTOCOL TABLE QHS SC 08/09/19 21:00 08/11/19 10:36 DC Levetiracetam (Keppra) 750 mg BID PO 08/09/19 21:00 08/13/19 10:33 Nystatin (Mycostatin Powder, Nystop) GROIN BID TOP 08/09/19 21:00 08/13/19 09:00 Pantoprazole Sodium (Protonix) 40 mg DAILY PO 08/10/19 09:00 08/13/19 10:34 Pravastatin Sodium (Pravachol) 40 mg QHS PO 08/09/19 21:00 08/12/19 21:02 Tamsulosin HCl (Flomax) 0.4 mg QHS PO 08/09/19 21:00 08/12/19 21:02 NATA VANESSA MD August 13, 2019 16:30
[2019-08-13 20:00] VITALS: BP 120/86
[2019-08-13] MEDS: TAMSULOSIN 0.4 MG CAP PO SCH (20:05)
[2019-08-13] MEDS: PRAVASTATIN 20 MG TAB PO SCH (20:05)
[2019-08-14] MEDS: IPRATROPIUM 0.5MG/ALBUTEROL 2.5MG INH SOL UD 3ML (DUONEB)(J7620) NEB SCH ×3 (07:11→19:48)
[2019-08-14] MEDS: CHLORHEXIDINE GLUCONATE 0.12 % 15ML UDC (PERIDEX ORAL RINSE) MT SCH ×2 (09:33→20:22)
[2019-08-14] MEDS: FUROSEMIDE 40 MG TAB PO SCH (09:33)
[2019-08-14] MEDS: CALCIUM/VITAMIN D 500 MG TAB PO SCH (09:33)
[2019-08-14] MEDS: levETIRAcetam 250MG TABLET (KEPPRA) PO SCH ×2 (09:33→20:22)
[2019-08-14] MEDS: guaiFENesin ER 600 MG TAB PO SCH ×2 (09:33→20:21)
[2019-08-14] MEDS: PANTOPRAZOLE 40MG TAB (PROTONIX) PO SCH (09:33)
[2019-08-14] MEDS: APIXABAN 5 MG TAB (ELIQUIS) PO SCH ×2 (09:33→20:22)
[2019-08-14] MEDS: VANICREAM MOISTURIZING SKIN CREAM 113GM TUBE TOP SCH ×2 (09:35→20:22)
[2019-08-14] MEDS: NYSTATIN 100,000 UNITS/GM TOPICAL PWD 15 GM TOP SCH ×2 (09:35→20:23)
[2019-08-14] MEDS: atenoloL 25 MG TAB PO SCH (09:35)
[2019-08-14 14:00] VITALS: BP 112/63
[2019-08-14 19:54] VITALS: BP 134/84
[2019-08-14] MEDS: PRAVASTATIN 20 MG TAB PO SCH (20:21)
[2019-08-14] MEDS: TAMSULOSIN 0.4 MG CAP PO SCH (20:22)
[2019-08-15 06:00] VITALS: BP 141/63
[2019-08-15] MEDS: IPRATROPIUM 0.5MG/ALBUTEROL 2.5MG INH SOL UD 3ML (DUONEB)(J7620) NEB SCH ×3 (07:07→19:49)
[2019-08-15] MEDS: CHLORHEXIDINE GLUCONATE 0.12 % 15ML UDC (PERIDEX ORAL RINSE) MT SCH ×2 (08:33→20:05)
[2019-08-15] MEDS: levETIRAcetam 250MG TABLET (KEPPRA) PO SCH ×2 (08:33→20:04)
[2019-08-15] MEDS: guaiFENesin ER 600 MG TAB PO SCH ×2 (08:34→20:04)
[2019-08-15] MEDS: VANICREAM MOISTURIZING SKIN CREAM 113GM TUBE TOP SCH ×2 (08:34→20:05)
[2019-08-15] MEDS: CALCIUM/VITAMIN D 500 MG TAB PO SCH (08:34)
[2019-08-15] MEDS: APIXABAN 5 MG TAB (ELIQUIS) PO SCH ×2 (08:34→20:05)
[2019-08-15] MEDS: atenoloL 25 MG TAB PO SCH (08:34)
[2019-08-15] MEDS: NYSTATIN 100,000 UNITS/GM TOPICAL PWD 15 GM TOP SCH ×2 (08:34→20:06)
[2019-08-15] MEDS: FUROSEMIDE 40 MG TAB PO SCH (08:34)
[2019-08-15] MEDS: PANTOPRAZOLE 40MG TAB (PROTONIX) PO SCH (08:34)
[2019-08-15 14:00] VITALS: BP 124/79
[2019-08-15 20:00] VITALS: BP 135/89
[2019-08-15] MEDS: PRAVASTATIN 20 MG TAB PO SCH (20:05)
[2019-08-15] MEDS: TAMSULOSIN 0.4 MG CAP PO SCH (20:05)
[2019-08-16 06:00] VITALS: BP 129/73
[2019-08-16 06:53] LABS: BASO % 0.8 % (0.0-1.0); EOS # 0.2 10^3/uL (0.0-0.5); EOS % 4.4 % (0.0-3.0); HEMATOCRIT 39.8 % (42.0-52.0); HEMOGLOBIN 12.2 g/dl (13.5-17.5); LYMPH # 0.8 10^3/uL (1.5-5.0); LYMPH % 16.3 % (24.0-44.0); MEAN CORPUSCULAR HEMOGLOBIN 29.2 pg (27.0-33.0); MEAN CORPUSCULAR HGB CONC 30.7 g/dl (32.0-36.5); MEAN CORPUSCULAR VOLUME 95.2 fl (80.0-96.0); MONO # 0.3 10^3/uL (0.0-0.8); MONO % 6.2 % (0.0-5.0); NEUTROPHILS # 3.6 10^3/uL (1.5-8.5); NEUTROPHILS % 71.7 % (36.0-66.0); PLATELET COUNT, AUTOMATED 146 10^3/uL (150-450); RED BLOOD COUNT 4.18 10^6/uL (4.30-6.10)
[2019-08-16 07:07] LABS: CALCIUM LEVEL 8.4 MG/DL (8.8-10.2); CREATININE FOR GFR 1.33 MG/DL (0.70-1.30); GLOMERULAR FILTRATION RATE 54.7 (>35); POTASSIUM SERUM 4.2 MEQ/L (3.5-5.1)
[2019-08-16] MEDS: IPRATROPIUM 0.5MG/ALBUTEROL 2.5MG INH SOL UD 3ML (DUONEB)(J7620) NEB SCH ×3 (07:22→19:34)
[2019-08-16] MEDS: ACETAMINOPHEN TAB 650MG DOSE (2X325MG) PO PRN (08:41)
[2019-08-16] MEDS: PANTOPRAZOLE 40MG TAB (PROTONIX) PO SCH (08:41)
[2019-08-16] MEDS: APIXABAN 5 MG TAB (ELIQUIS) PO SCH ×2 (08:41→19:56)
[2019-08-16] MEDS: guaiFENesin ER 600 MG TAB PO SCH ×2 (08:41→19:56)
[2019-08-16] MEDS: CALCIUM/VITAMIN D 500 MG TAB PO SCH (08:41)
[2019-08-16] MEDS: CHLORHEXIDINE GLUCONATE 0.12 % 15ML UDC (PERIDEX ORAL RINSE) MT SCH ×2 (08:42→19:56)
[2019-08-16] MEDS: levETIRAcetam 250MG TABLET (KEPPRA) PO SCH ×2 (08:42→19:56)
[2019-08-16] MEDS: FUROSEMIDE 40 MG TAB PO SCH (08:43)
[2019-08-16] MEDS: atenoloL 25 MG TAB PO SCH (08:43)
[2019-08-16] MEDS: NYSTATIN 100,000 UNITS/GM TOPICAL PWD 15 GM TOP SCH ×2 (08:44→19:57)
[2019-08-16] MEDS: VANICREAM MOISTURIZING SKIN CREAM 113GM TUBE TOP SCH ×2 (08:44→19:57)
[2019-08-16] MEDS ORDERED: IPRA0.00 NEB (11:05)
[2019-08-16] MEDS ORDERED: ATEN25TA PO (11:05)
[2019-08-16] MEDS ORDERED: KEPP1TAB2 PO (11:05)
[2019-08-16] MEDS ORDERED: FLOM0.4C39 PO (11:05)
[2019-08-16] MEDS ORDERED: ESOM1CAP5 PO (11:05)
[2019-08-16] MEDS ORDERED: PRAV40TA2 PO (11:05)
[2019-08-16] MEDS ORDERED: CALC600T57 PO (11:05)
[2019-08-16] MEDS ORDERED: ELIQ5TAB PO (11:05)
[2019-08-16] MEDS ORDERED: FURO40TA2 PO (11:05)
[2019-08-16 14:00] VITALS: BP 108/71
--- NOTE | 2019-08-16 16:57 | IPNPDOC ---
PM&R Progress Note DATE OF SERVICE: August 16, 2019 It Consultant Progress Note Subjective: REVIEW OF SYSTEMS: The following is a completed review of systems and has been reviewed. Review of systems otherwise unremarkable. PAIN: Patient self reports no pain EYES: No recent vision changes EARS, NOSE, & THROAT: No throat pain, or dysphagia, or rhinorrhea CARDIOVASCULAR: Denies chest pain or palpitations PULMONARY: Denies shortness of breath GASTROINTESTINAL: Denies constipation/diarrhea GENITOURINARY: +dysuria (resolved) MUSCULOSKELETAL: generalized weakness NEUROLOGICAL:+ peripheral polyneuropathy HEMATOLOGICAL: denies easy bruising SKIN: hyperkeratotic calves PSYCHIATRIC: Unremarkable All other review of systems found to be negative. PHYSICAL EXAMINATION: VITAL SIGNS: Please see below. GENERAL: Pleasant and cooperative. No acute distress. obese HEENT: PERRL. Extraocular movements intact. Clear conjunctiva CARDIOVASCULAR: Regular rate and rhythm. No murmurs, rubs, or gallops, +PM LUNGS: Clear to auscultation bilaterally. No wheezes. No rhonchi ABDOMEN: Soft, nontender, nondistended. Positive bowel sounds. Normal active bowel sounds +colostomy NEUROLOGICAL: Alert and oriented times three. Cranial nerves II through XII grossly intact. Sensation diminished to light touch in stocking fashion EXTREMITIES: 5\5 strength bilateral upper extremities. 4\5 strength right lower extremity. 4/5 strength in left lower extremity. (bilat LE edema better with TEDs) SKIN: hyperkeratotic calves, blanchable sacral erythema ASSESSMENT:84-year-old M with past medical history of diastolic CHF who presents status post CHF exacerbation PLAN: 1. Rehab- PT/OT advance gait and ADL training, strengthen/stretch/maintain ROM a ll 4 limbs, teach energy conservation techniques, ambulating with RW, room privileges 2. 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 C[place]di[place]: chronic diastolic CHF with recent exacerbation, c/u fluid restriction, daily weights, lasix -Afib c/u atenolol and eliquis -HTN c/u BP meds, medicine consulted to assist in overall management -HLD c/u statin 4. Resp: hx of COPD s/p course of antibiotics for CAP, c/u breathing treatments, guaifenesin, supplemental 02 -goal to wean off 02 prior to d/c home -LIANNA c/u CPAP at night 5. : BPH c/u flomax, monitor PVRs, UA negative and dysuria resolved 6. GI px: protonix 7. DVT pps: on eliquis, teds 8. Pain: tylneol prn 9. Dispo: 08-17-19 to home, progressing towards goals Allergies Coded Allergies: No Known Allergies (Unverified , 05/20/19) Vital Signs Vital Signs Date Time Temp Pulse Resp B/P (MAP) Pulse Ox O2 Delivery O2 Flow Rate FiO2 08/16/19 14:00 98.1 89 20 108/71 (83) 94 Room Air 08/13/19 15:11 2.0 Laboratory Data CBC/BMP Laboratory Tests 08/16/19 06:30 Labs 24H Laboratory Tests 2 08/16/19 06:30: Immature Granulocyte % (Auto) 0.6, Neutrophils (%) (Auto) 71.7H, Lymphocytes (%) (Auto) 16.3L, Monocytes (%) (Auto) 6.2H, Eosinophils (%) (Auto) 4.4H, Basophils (%) (Auto) 0.8, Neutrophils # (Auto) 3.6, Lymphocytes # (Auto) 0.8L, Monocytes # (Auto) 0.3, Eosinophils # (Auto) 0.2, Basophils # (Auto) 0.0, Nucleated Red Blood Cells % (auto) 0.0, Anion Gap 3L, Glomerular Filtration Rate 54.7, Calcium Level 8.4L 08/16/19 06:46: Bedside Glucose (Misc Panel) 98 08/16/19 16:46: Bedside Glucose (Misc Panel) 103 Current Medications Current Medications Current Medications Medications (Trade) Dose Ordered Sig/Yao Route PRN Reason Start Time Stop Time Status Last Admin Dose Admin Acetaminophen (Tylenol Tab) 650 mg Q4HP PRN PO fever/MILD PAIN (PS 1-4) 08/09/19 16:45 08/16/19 08:41 Albuterol/ Ipratropium (Duoneb (Ipr 0.5mg/Alb 2.5mg)) 3 ml RTID NEB 08/09/19 20:00 08/16/19 07:22 Apixaban (Eliquis) 5 mg BID PO 08/09/19 21:00 08/16/19 08:41 Atenolol (Tenormin) 25 mg DAILY PO 08/10/19 09:00 08/15/19 08:34 Calcium/Vitamin D (Oscal D) 500 mg DAILY PO 08/10/19 09:00 08/16/19 08:41 Chlorhexidine Gluconate (Peridex Oral Rinse) 15 ml BID MT 08/09/19 21:00 08/16/19 08:42 Dextrose (Dextrose 50%) 25 ml ASDIRECTED PRN IV SEE LABEL COMMENTS 08/09/19 16:45 Emollient Cream (Vanicream) TO BILATERAL LEGS BID TOP 08/09/19 21:00 08/16/19 08:44 Furosemide (Lasix) 40 mg DAILY PO 08/10/19 09:00 08/15/19 08:34 Glucagon (Glucagon) 1 mg ASDIRECTED PRN SC SEE LABEL COMMENTS 08/09/19 16:45 Glucose (Glucose) 16 GM ASDIRECTED PRN PO SEE LABEL COMMENTS 08/09/19 16:45 Guaifenesin (Mucinex Tab Er) 600 mg BID PO 08/09/19 21:00 08/16/19 08:41 Home Med (Med Rec Complete!) ASDIRECTED XX 08/09/19 16:15 08/09/19 16:09 DC Insulin Human Lispro (HumaLOG INSULIN) SEE PROTOCOL TABLE AC SC 08/09/19 17:30 08/11/19 10:36 DC 08/11/19 08:36 Insulin Human Lispro (HumaLOG INSULIN) SEE PROTOCOL TABLE QHS SC 08/09/19 21:00 08/11/19 10:36 DC Levetiracetam (Keppra) 750 mg BID PO 08/09/19 21:00 08/16/19 08:42 Nystatin (Mycostatin Powder, Nystop) GROIN BID TOP 08/09/19 21:00 08/16/19 08:44 Pantoprazole Sodium (Protonix) 40 mg DAILY PO 08/10/19 09:00 08/16/19 08:41 Pravastatin Sodium (Pravachol) 40 mg QHS PO 08/09/19 21:00 08/15/19 20:05 Tamsulosin HCl (Flomax) 0.4 mg QHS PO 08/09/19 21:00 08/15/19 20:05 NATA VANESSA MD August 16, 2019 16:57
[2019-08-16] MEDS: PRAVASTATIN 20 MG TAB PO SCH (19:56)
[2019-08-16] MEDS: TAMSULOSIN 0.4 MG CAP PO SCH (19:56)
[2019-08-16 20:00] VITALS: BP 113/69
[2019-08-17 06:00] VITALS: BP 115/75
[2019-08-17] MEDS: IPRATROPIUM 0.5MG/ALBUTEROL 2.5MG INH SOL UD 3ML (DUONEB)(J7620) NEB SCH ×2 (07:17→13:09)
[2019-08-17] MEDS: levETIRAcetam 250MG TABLET (KEPPRA) PO SCH (08:06)
[2019-08-17] MEDS: guaiFENesin ER 600 MG TAB PO SCH (08:06)
[2019-08-17] MEDS: PANTOPRAZOLE 40MG TAB (PROTONIX) PO SCH (08:06)
[2019-08-17] MEDS: CHLORHEXIDINE GLUCONATE 0.12 % 15ML UDC (PERIDEX ORAL RINSE) MT SCH (08:06)
[2019-08-17] MEDS: FUROSEMIDE 40 MG TAB PO SCH (08:06)
[2019-08-17] MEDS: APIXABAN 5 MG TAB (ELIQUIS) PO SCH (08:06)
[2019-08-17] MEDS: CALCIUM/VITAMIN D 500 MG TAB PO SCH (08:06)
[2019-08-17 08:07] VITALS: BP 118/69
[2019-08-17] MEDS: NYSTATIN 100,000 UNITS/GM TOPICAL PWD 15 GM TOP SCH (08:07)
[2019-08-17] MEDS: atenoloL 25 MG TAB PO SCH (08:07)
[2019-08-17] MEDS: VANICREAM MOISTURIZING SKIN CREAM 113GM TUBE TOP SCH (08:07)
== END 2019-08-17 14:15 | disposition home health service (06) | DRG 74 ==
LOC: M PM&R 15:20
PROVIDERS: ADMIT Physical Medicine & Rehabilitation; ATTEND Physical Medicine & Rehabilitation
DX: E11.42 Type 2 diabetes mellitus with diabetic polyneuropathy (principal); I13.0 Hypertensive heart and chronic kidney disease with heart failure and stage 1 through stage 4 chronic kidney disease, or unspecified chronic kidney disease; I50.32 Chronic diastolic (congestive) heart failure; E66.2 Morbid (severe) obesity with alveolar hypoventilation; I48.91 Unspecified atrial fibrillation; J44.9 Chronic obstructive pulmonary disease, unspecified; E78.5 Hyperlipidemia, unspecified; E11.51 Type 2 diabetes mellitus with diabetic peripheral angiopathy without gangrene; N18.3 Chronic kidney disease, stage 3 (moderate); Z66 Do not resuscitate; R56.9 Unspecified convulsions; R30.0 Dysuria; R53.1 Weakness; L57.0 Actinic keratosis; R26.89 Other abnormalities of gait and mobility; G47.33 Obstructive sleep apnea (adult) (pediatric); N40.0 Benign prostatic hyperplasia without lower urinary tract symptoms; Z95.0 Presence of cardiac pacemaker; Z87.891 Personal history of nicotine dependence; Z79.01 Long term (current) use of anticoagulants; Z79.4 Long term (current) use of insulin; Z79.899 Other long term (current) drug therapy; Z68.38 Body mass index [BMI] 38.0-38.9, adult; Z85.048 Personal history of other malignant neoplasm of rectum, rectosigmoid junction, and anus

== ENCOUNTER → 2019-12-09 | Outpatient (REF) | payer MEDICARE, OTHER ==
[~2019-12-09] MED LIST changes: +ACET1TAB55 PO; +ALB2.5NEB NEB; -ASPI81TA85 PO; +ASPI81TA86 PO; +ATEN25TA PO; +DOCU100C16 PO; +INSUHUMDS SC; +KEPP1TAB2 PO; +KEPP250T5 PO; +NYST10006 TOP
== END ==
LOC: M LAB REF 10:30
PROVIDERS: ATTEND Physician Assistant Medical
DX: R30.0 Dysuria (principal)

== ENCOUNTER → 2020-03-08 | Outpatient (REF) | payer MEDICARE, OTHER | LOC: M LAB REF 17:06 | PROVIDERS: ATTEND Internal Medicine | DX: G40.89 Other seizures (principal) ==

== ENCOUNTER 2020-06-08 11:46 | Inpatient (IN) | payer MEDICARE, OTHER ==
[~2020-06-08] VITALS: Ht 172.7 cm; Wt 95.5 kg
[2020-06-08] MEDS ORDERED: LEVE750T5 PO (13:00)
[2020-06-08] MEDS ORDERED: OYST500T94 PO (13:00)
--- NOTE | 2020-06-08 13:16 | REP ---
INDICATION: fall on Friday,weakness r leg, severe hip pain, - xrays. COMPARISON: Comparison CT study of the brain is from August 03, 2019.. TECHNIQUE: Helical scanning is acquired. 5 mm axial images were reformatted. Coronal MPR images were generated. FINDINGS: Bone window settings demonstrate an intact bony calvarium. There is no evidence of skull fracture or incidental bony calvarial lesion. The visualized paranasal sinuses appear clear. No intraorbital abnormality is seen. On soft tissue window setting images; the lateral, third, and fourth ventricles are normal in size and position. Chen-white differentiation pattern is normal above and below the tentorium. There are is no evidence of intracranial hemorrhage. No mass, edema, infarction, or midline shift is seen. No extra-axial fluid collection is appreciated. There is generalized volume loss. Mild small vessel changes are again noted. Dystrophic calcifications again seen in the extraocular superior orbit on the left. IMPRESSION: No acute intracranial abnormality. Generalized volume loss and small vessel changes again noted. No acute intracranial abnormality.. <Electronically signed by Pablo Chavez > 06/08/20 [id number]
--- NOTE | 2020-06-08 13:19 | REP ---
INDICATION: fall on Friday,weakness r leg, severe hip pain, - xrays. COMPARISON: None. TECHNIQUE: Axial noncontrast images through the right hemipelvis with coronal and sagittal reformations. FINDINGS: There is a very subtle fracture along the anteromedial aspect of the right pubis and subtle nondisplaced fracture of the inferior pubic ramus. A small hematoma is noted along the inner margin of the pubis within the right hemipelvis along with mild surrounding posttraumatic infiltration. The acetabulum and proximal femur are intact. Musculature appears intact. IMPRESSION: Subtle fractures along the right pubis and involving the right inferior pubic ramus with small adjacent hematoma and posttraumatic inflammatory stranding. <Electronically signed by Gregory Velázquez > 06/08/20 [id number]
[2020-06-08] MEDS ORDERED: atenoloL 25 MG TAB PO STA (13:24)
--- NOTE | 2020-06-08 13:24 | REP ---
INDICATION: fall on Friday,weakness r leg. COMPARISON: Comparison is made with imaging done at the time of CT abdomen and pelvis 05/20/2019.. TECHNIQUE: Helical scanning is acquired. 4 mm axial images re-formatted. Coronal and sagittal MPR images are provided. FINDINGS: Lumbar vertebral body heights are preserved. The patient is rotated to the left in the scanner gantry. No acute fracture or collapse is seen. There is a Schmorl's node at the superior endplate of the L5 vertebral body to the left of midline which is unchanged from the comparison CT images May 20, 2019. There is degenerative disc disease at each lumbar level. No vacuum phenomena is visible today except at L5-S1 on the right. There is diffuse disc bulging and posterior osteophytic ridging at L5-S1 with bilateral mild neural foraminal narrowing due to discogenic spurring and facet hypertrophy. This is unchanged. At L4-5 there is evidence of mild central canal stenosis due to diffuse disc bulging and ligamentum flavum and facet hypertrophy. At L3-4, there is evidence of mild central canal stenosis due to mild ligamentum flavum hypertrophy and diffuse disc bulging. There is no evidence of transverse process or spinous process fracture. Facet osteoarthritis is noted bilaterally at L5-S1 and to a lesser extent at L4-5. There are multiple large renal cysts noted bilaterally. These are unchanged. IMPRESSION: No traumatic abnormality noted. Degenerative spondylosis changes. Mild central canal stenosis at L4-5 and L3-4. Bilateral neural foraminal encroachment at L5-S1. <Electronically signed by Pablo Chavez > 06/08/20 [id number]
[2020-06-08] MEDS ORDERED: ANEXSIA, NORCO 7.5MG/325MG TABLET(HYDROCODONE/APAP) PO PRN (14:10)
[2020-06-08] MEDS ORDERED: MOM 30ML SUSPENSION UDC PO PRN (14:10)
[2020-06-08] MEDS ORDERED: ESOM1CAP5 PO (14:30)
[2020-06-08] MEDS ORDERED: FLOM0.4C39 PO (14:30)
[2020-06-08] MEDS ORDERED: PRAV40TA2 PO (14:30)
[2020-06-08] MEDS ORDERED: ELIQ5TAB PO (14:30)
[2020-06-08] MEDS ORDERED: FURO40TA2 PO (14:30)
[2020-06-08] MEDS ORDERED: ATEN25TA PO (14:30)
[2020-06-08 15:00] LABS: BASO % 0.6 % (0.0-1.0); EOS # 0.1 10^3/uL (0.0-0.5); EOS % 2.3 % (0.0-3.0); HEMATOCRIT 39.9 % (42.0-52.0); HEMOGLOBIN 12.8 g/dl (13.5-17.5); LYMPH # 1.1 10^3/uL (1.5-5.0); LYMPH % 21.2 % (24.0-44.0); MEAN CORPUSCULAR HEMOGLOBIN 30.5 pg (27.0-33.0); MEAN CORPUSCULAR HGB CONC 32.1 g/dl (32.0-36.5); MEAN CORPUSCULAR VOLUME 95.2 fl (80.0-96.0); MONO # 0.5 10^3/uL (0.0-0.8); MONO % 8.9 % (2.0-8.0); NEUTROPHILS # 3.5 10^3/uL (1.5-8.5); NEUTROPHILS % 66.4 % (36.0-66.0); PLATELET COUNT, AUTOMATED 112 10^3/uL (150-450); RED BLOOD COUNT 4.19 10^6/uL (4.30-6.10); WHITE BLOOD COUNT 5.2 10^3/uL (4.0-10.0)
[2020-06-08 15:02] LABS: VENOUS BASE EXCESS 1.4 (-2.0-2.0); VENOUS HCO3 28.4 MEQ/L (23.0-27.0); VENOUS O2 SATURATION 65.1 % (60.0-80.0); VENOUS PARTIAL PRESSURE CO2 54.8 mmHg (38.0-50.0); VENOUS PARTIAL PRESSURE O2 35.4 mmHg (30.0-50.0); VENOUS PH 7.332 UNITS (7.330-7.430); VENOUS STANDARD HCO3 24.9 MEQ/L; VENOUS TOTAL CO2 30.1 MEQ/L (24.0-28.0)
[2020-06-08 15:24] LABS: ALBUMIN 3.3 GM/DL (3.2-5.2); ALT/SGPT 18 U/L (12-78); BLOOD UREA NITROGEN 25 MG/DL (7-18); CALCIUM LEVEL 8.9 MG/DL (8.8-10.2); CARBON DIOXIDE LEVEL 30 MEQ/L (21-32); CHLORIDE LEVEL 106 MEQ/L (98-107); CREATININE FOR GFR 0.86 MG/DL (0.70-1.30); GLOMERULAR FILTRATION RATE > 60.0 (>35); GLUCOSE, FASTING 101 MG/DL (70-100); POTASSIUM SERUM 4.6 MEQ/L (3.5-5.1); SODIUM LEVEL 140 MEQ/L (136-145); TOTAL PROTEIN 6.7 GM/DL (6.4-8.2)
--- NOTE | 2020-06-08 15:24 | HPEPDOC ---
General Date of Admission Chief Complaint The patient is a 85-year-old male admitted with a reason for visit of Hip Pain From Fall. History of Present Illness 85 year old male with PMH of Rectal cancer status post surgery and chemoradiation, status post colostomy, atrial fibrillation, PPM, COPD, Chronic hypercarbic respiratory failure, LIANNA no CPAP, hypertension, dyslipidemia, PAD, diabetes mellitus, chronic diastolic heart failure, CKD stage III, alcohol, tobacco abuse in the past, obesity, abdominal hernia, h/o Seizure had a mechanical fall on 06/05/20 while he was standing with his walker had just put on his pants and was trying to fix his suspenders and his who is WC bound was helping him. He fell over the walker on his right side since then he has severe pain at his right hip and is unable to bear weight or ambulate. He went to see ortho Dr Art chavez on 06/06/20 hip xray was done which was negative for any fracture. However he continued to be in severe pain and unable to bear weight or ambulate so came to the ED. In the ED CT of the right hip showed Subtle fractures along the right pubis and involving the right inferior pubic ramus with small adjacent hematoma and posttraumatic inflammatory stranding. He was admitted for pain control and evaluation for PT/OT. He complains of sharp aching pain at the right hip 10/10 in intensity when he tries to bear weight or ambulate. Home Medications Scheduled Apixaban (Eliquis) 5 Mg Tablet, 5 MG PO BID, (Reported) Atenolol (Atenolol) 25 Mg Tablet, 25 MG PO DAILY, (Reported) Calcium Carbonate/Vitamin D3 (Oyster Shell Calcium-Vit D Tab) 1 Each Tablet, 1 TAB PO DAILY, (Reported) Esomeprazole Magnesium (Esomeprazole Magnesium) 40 Mg Capsule.dr, 40 MG PO DAILY, (Reported) Furosemide (Furosemide) 40 Mg Tablet, 40 MG PO DAILY, (Reported) Levetiracetam (Levetiracetam) 750 Mg Tablet, 750 MG PO BID, (Reported) Pravastatin Sodium (Pravastatin Sodium) 40 Mg Tablet, 40 MG PO QHS, (Reported) Tamsulosin HCl (Flomax) 0.4 Mg Capsule, 0.4 MG PO DAILY, (Reported) Allergies Coded Allergies: No Known Allergies (Unverified , 05/20/19) Past Medical History Medical History Rectal cancer status post Abdominoperineal resection with right sided colostomy and chemoradiation in 2011, atrial fibrillation, PPM, COPD, Chronic hypercarbic and hypoxic respiratory failure, LIANNA no CPAP, hypertension, dyslipidemia, PAD, diabetes mellitus, chronic diastolic heart failure, CKD stage III, alcohol, tobacco abuse in the past, obesity, abdominal hernia, h/o Seizure, chronic venous stasis dermatitis, chronic venous stasis ulcer on the right leg. Surgical History Abdominoperineal resection with right sided colostomy in 2011. Small bowel obstruction with incarcerated parastomal hernia, ventral incisional hernia and extensive adhesions, status post laparoscopic lysis of adhesions, reduction of incarcerated parastomal hernia, repair of hernias and placement of mesh in March 2019. Cataract surgery. Tonsillectomy. Pacemaker placement. Family History Father in his 50s with throat cancer, was a smoker. Mother at age 96, osteoporosis and fractures. Social History * Smoker: former Smoker Alcohol: Denies Drugs: denies A-FIB/CHADSVASC A-FIB History Current/History of A-Fib/PAF?: Yes Current PO Anticoag Therapy: Yes Review of Systems Constitutional: Reports: Malaise, Other (poor appetite); Denies: Chills, Fever, Night Sweats Eyes: Denies: Pain, Vision change ENT: Denies: Head Aches, Ear Pain, Dysphagia Skin: Reports: Breakdown (right leg ulcer) Pulmonary: Denies: Dyspnea, Cough Cardiovascular: Denies: Chest Pain, Palpitations, Orthopnea, Paroxysmal Noc. Dyspnea, Lt Headedness Gastrointestinal: Reports: Other Symptoms (colostomy); Denies: Nausea, Vomiting, Abdominal Pain, Diarrhea Genitourinary: Denies: Dysuria, Frequency, Incontinence, Retention Musculoskeletal: Reports: Leg Pain, Joint Pain (right hip) Neurological: Reports: Numbness (hands and legs) Physical Examination General Exam: Positive: Alert, Cooperative, No Acute Distress Eye Exam: Positive: PERRLA, Conjunctiva & lids normal, EOMI; Negative: Sclera icteric Neck Exam: Positive: Supple; Negative: JVD, thyromegaly Chest Exam: Positive: Rhonchi, Wheezing, Diminished Heart Exam: Positive: Rate Normal, Irregular Rhythm, Normal S1, Normal S2; Negative: Murmurs, Rubs Abdomen Exam: Positive: Normal bowel sounds, Soft, Other (colostomy); Negative: Tenderness Extremity Exam: Positive: Normal pulses, Tenderness (right groin and right hip); Negative: Clubbing, Cyanosis, Edema Skin Exam: Positive: Lesion (right leg dry, scabbed venous stasis ulcer x 2 about 4 cm x 4 cm), Other skin issue (chronic venous stasis dermatitis) Neuro Exam: Positive: Normal Speech, Strength at 5/5 X4 ext, Normal Tone Vital Signs Vital Signs Date Time Temp Pulse Resp B/P (MAP) Pulse Ox O2 Delivery O2 Flow Rate FiO2 06/08/20 11:58 98.4 80 22 175/109 (131) 96 Room Air Laboratory Data Labs 24H Laboratory Tests 2 06/08/20 13:41: Assessment/Plan 85 year old male with PMH of Rectal cancer status post surgery and chemoradiation, status post colostomy, atrial fibrillation, PPM, COPD, Chronic hypercarbic respiratory failure, LIANNA no CPAP, hypertension, dyslipidemia, PAD, diabetes mellitus, chronic diastolic heart failure, CKD stage III, alcohol, tobacco abuse in the past, obesity, abdominal hernia, h/o Seizure had a mechanical fall on 06/05/20 while he was standing with his walker had just put on his pants and was trying to fix his suspenders and his who is WC bound was helping him. He fell over the walker on his right side since then he has sev ere pain at his right hip and is unable to bear weight or ambulate. He went to see ortho Dr Art chavez on 06/06/20 hip xray was done which was negative for any fracture. However he continued to be in severe pain and unable to bear weight or ambulate so came to the ED. In the ED CT of the right hip showed Subtle fractures along the right pubis and involving the right inferior pubic ramus with small adjacent hematoma and posttraumatic inflammatory stranding. He was admitted for pain control and evaluation for PT/OT. He complains of sharp aching pain at the right hip 10/10 in intensity when he tries to bear weight or ambulate. Right pubis and inferior pubic rami fracture. pain control PT/OT, weight bearning as tolerated. COPD with chronic hypoxic and hypercarbic respiratory failure continue duonebs oxygen LIANNA untreated. DM with diabetic neuropathy diet controlled Chronic venous stasis with stasis ulcer on the right and bilateral stasis dermatitis. follows with Dr Stillerman Seizure cont keppra Afib/ tachy jenna syndroe Has PPM in place. atenolol and eliquis CKD stage 3 BPH flomax Chronic diastolic CHF appears Euvolemic at present cont lasix. Rectal cancer status post surgery and chemoradiation, status post colostomy, No issues at this time. Plan / VTE VTE Prophylaxis Ordered?: Yes DENA MAYEN MD Jun 08, 2020 14:06
[2020-06-08] MEDS: IPRATROPIUM 0.5MG/ALBUTEROL 2.5MG INH SOL UD 3ML (DUONEB) NEB SCH ×2 (16:05→23:00)
[2020-06-08 16:15] VITALS: BP 155/92
[2020-06-08 22:00] VITALS: BP 122/75
[2020-06-08] MEDS: APIXABAN 5 MG TAB (ELIQUIS) PO SCH (22:16)
[2020-06-08] MEDS: levETIRAcetam 250MG TABLET (KEPPRA) PO SCH (22:16)
[2020-06-08] MEDS: PRAVASTATIN 20 MG TAB PO SCH (22:16)
[2020-06-08] MEDS: DOCUSATE SODIUM 100MG CAPSULE PO SCH (22:17)
[2020-06-08] MEDS: NORCO, ANEXSIA 5/325MG TABLET (HYDROcodone/ACETAMINOPHEN) PO PRN (22:17)
[2020-06-09 06:00] VITALS: BP 118/76
[2020-06-09] MEDS: IPRATROPIUM 0.5MG/ALBUTEROL 2.5MG INH SOL UD 3ML (DUONEB) NEB SCH ×3 (07:44→23:45)
[2020-06-09 08:21] LABS: BASO % 0.7 % (0.0-1.0); EOS # 0.2 10^3/uL (0.0-0.5); EOS % 3.1 % (0.0-3.0); HEMATOCRIT 40.2 % (42.0-52.0); HEMOGLOBIN 12.5 g/dl (13.5-17.5); LYMPH # 0.9 10^3/uL (1.5-5.0); LYMPH % 15.9 % (24.0-44.0); MEAN CORPUSCULAR HEMOGLOBIN 30.4 pg (27.0-33.0); MEAN CORPUSCULAR HGB CONC 31.1 g/dl (32.0-36.5); MEAN CORPUSCULAR VOLUME 97.8 fl (80.0-96.0); MONO # 0.4 10^3/uL (0.0-0.8); MONO % 6.3 % (2.0-8.0); NEUTROPHILS # 4.1 10^3/uL (1.5-8.5); NEUTROPHILS % 73.5 % (36.0-66.0); PLATELET COUNT, AUTOMATED 118 10^3/uL (150-450); RED BLOOD COUNT 4.11 10^6/uL (4.30-6.10); WHITE BLOOD COUNT 5.6 10^3/uL (4.0-10.0)
[2020-06-09 08:36] LABS: BLOOD UREA NITROGEN 26 MG/DL (7-18); CALCIUM LEVEL 8.9 MG/DL (8.8-10.2); CARBON DIOXIDE LEVEL 31 MEQ/L (21-32); CHLORIDE LEVEL 107 MEQ/L (98-107); CREATININE FOR GFR 1.12 MG/DL (0.70-1.30); GLOMERULAR FILTRATION RATE > 60.0 (>35); GLUCOSE, FASTING 138 MG/DL (70-100); POTASSIUM SERUM 3.9 MEQ/L (3.5-5.1); SODIUM LEVEL 141 MEQ/L (136-145)
[2020-06-09] MEDS: atenoloL 25 MG TAB PO SCH (08:37)
[2020-06-09] MEDS: DOCUSATE SODIUM 100MG CAPSULE PO SCH (08:37)
[2020-06-09] MEDS: levETIRAcetam 250MG TABLET (KEPPRA) PO SCH ×2 (08:37→20:40)
[2020-06-09] MEDS: FUROSEMIDE 40 MG TAB PO SCH (08:38)
[2020-06-09] MEDS: APIXABAN 5 MG TAB (ELIQUIS) PO SCH ×2 (08:38→20:41)
[2020-06-09] MEDS: TAMSULOSIN 0.4 MG CAP PO SCH (08:38)
[2020-06-09] MEDS: PANTOPRAZOLE 40MG TAB (PROTONIX) PO SCH (08:38)
--- NOTE | 2020-06-09 09:55 | IPNPDOC ---
Subjective Date Seen The patient was seen on 06/09/20. Subjective Chief Complaint/HPI no complaint this morning. Pain is controlled when in bed. PT to evaluate him today. Objective Physical Examination General Exam: Positive: Alert, Cooperative, No Acute Distress Eye Exam: Positive: PERRLA, Conjunctiva & lids normal, EOMI; Negative: Sclera icteric Neck Exam: Positive: Supple; Negative: JVD, thyromegaly Chest Exam: Positive: Rhonchi, Wheezing, Diminished Heart Exam: Positive: Rate Normal, Irregular Rhythm, Normal S1, Normal S2; Negative: Murmurs, Rubs Abdomen Exam: Positive: Normal bowel sounds, Soft, Other (colostomy); Negative: Tenderness Extremity Exam: Positive: Normal pulses, Tenderness (right groin and right hip); Negative: Clubbing, Cyanosis, Edema Skin Exam: Positive: Lesion (right leg dry, scabbed venous stasis ulcer x 2 about 4 cm x 4 cm), Other skin issue (chronic venous stasis dermatitis) Neuro Exam: Positive: Normal Speech, Strength at 5/5 X4 ext, Normal Tone Assessment /Plan Assessment 85 year old male with PMH of Rectal cancer status post surgery and chemoradiation, status post colostomy, atrial fibrillation, PPM, COPD, Chronic hypercarbic and hypoxic respiratory failure, LIANNA not no CPAP only uses oxygen., hypertension, dyslipidemia, PAD, diabetes mellitus, chronic diastolic heart failure, CKD stage III, alcohol, tobacco abuse in the past, obesity, abdominal hernia, h/o Seizure had a mechanical fall on 06/05/20 while he was standing with his walker had just put on his pants and was trying to fix his suspenders and his who is WC bound was helping him. He fell over the walker on his right side since then he has severe pain at his right hip and is unable to bear weight or ambulate. He went to see ortho Dr Art chavez on 06/06/20 hip xray was done which was negative for any fracture. However he continued to be in severe pain and unable to bear weight or ambulate so came to the ED. In the ED CT of the right hip showed Subtle fractures along the right pubis and involving the right inferior pubic ramus with small adjacent hematoma and posttraumatic inflammatory stranding. He was admitted for pain control and evaluation for PT/OT. He complains of sharp aching pain at the right hip 10/10 in intensity when he tries to bear weight or ambulate. Right pubis and inferior pubic rami fracture. pain control PT/OT, weight bearing as tolerated. COPD with chronic hypercarbic and hypoxic respiratory failure Only oxygen at home , no CPAP will continue adrianneprosper says has inhalers at home but does ot use them. LIANNA untreated. No CPAP. DM with diabetic neuropathy diet controlled Chronic venous stasis with stasis ulcer on the right and bilateral stasis dermatitis. follows with Dr Huynh Seizure cont keppra Afib/ annabella pegueroroe Has PPM in place. atenolol and eliquis CKD stage 3 BPH flomax Chronic diastolic CHF appears Euvolemic at present cont lasix. Rectal cancer status post surgery and chemoradiation, status post colostomy, No issues at this time. Plan/VTE VTE Prophylaxis Ordered?: Yes VS, I&O, 24H, Fishbone Vital Signs/I&O Vital Signs Date Time Temp Pulse Resp B/P (MAP) Pulse Ox O2 Delivery O2 Flow Rate FiO2 06/09/20 08:37 72 118/76 06/09/20 06:00 97.9 20 100 Room Air I&O- Last 24 Hours up to 6 AM 06/09/20 06:00 Intake Total 1120 ml Output Total 450 ml Balance 670 ml Laboratory Data 24H LABS Laboratory Tests 2 06/08/20 13:41: Coronavirus (COVID-19)(PCR) NEGATIVE 06/08/20 14:41: Immature Granulocyte % (Auto) 0.6, Neutrophils (%) (Auto) 66.4H, Lymphocytes (%) (Auto) 21.2L, Monocytes (%) (Auto) 8.9H, Eosinophils (%) (Auto) 2.3, Basophils (%) (Auto) 0.6, Neutrophils # (Auto) 3.5, Lymphocytes # (Auto) 1.1L, Monocytes # (Auto) 0.5, Eosinophils # (Auto) 0.1, Basophils # (Auto) 0.0, Nucleated Red Blood Cells % (auto) 0.0, Blood Gas Bicarbonate Standard 24.9, Venous Blood pH 7.332, Venous Blood Partial Pressure CO2 54.8H, Venous Blood Partial Pressure O2 35.4, Venous Blood Total Carbon Dioxide 30.1H, Venous Blood HCO3 28.4H, Venous Blood Oxygen Saturation 65.1, Venous Blood Base Excess 1.4, Anion Gap 4L, Glomerular Filtration Rate > 60.0, Calcium Level 8.9, Total Bilirubin 1.0, Aspartate Amino Transf (AST/SGOT) 14, Alanine Aminotransferase (ALT/SGPT) 18, Alkaline Phosphatase 73, Total Protein 6.7, Albumin 3.3, Albumin/Globulin Ratio 1.0 06/09/20 07:45: Immature Granulocyte % (Auto) 0.5, Neutrophils (%) (Auto) 73.5H, Lymphocytes (%) (Auto) 15.9L, Monocytes (%) (Auto) 6.3, Eosinophils (%) (Auto) 3.1H, Basophils (%) (Auto) 0.7, Neutrophils # (Auto) 4.1, Lymphocytes # (Auto) 0.9L, Monocytes # (Auto) 0.4, Eosinophils # (Auto) 0.2, Basophils # (Auto) 0.0, Nucleated Red Blood Cells % (auto) 0.0, Anion Gap 3L, Glomerular Filtration Rate > 60.0, Calcium Level 8.9 CBC/BMP Laboratory Tests 06/08/20 14:41 06/09/20 07:45 DENA MAYEN MD Jun 09, 2020 09:55
[2020-06-09] MEDS: SENOKOT S TAB PO SCH ×2 (12:09→20:40)
[2020-06-09] MEDS: NORCO, ANEXSIA 5/325MG TABLET (HYDROcodone/ACETAMINOPHEN) PO PRN ×2 (12:10→20:40)
[2020-06-09 14:00] VITALS: BP 125/75
[2020-06-09] MEDS: PRAVASTATIN 20 MG TAB PO SCH (20:41)
[2020-06-09 22:00] VITALS: BP 125/75
[2020-06-10 06:00] VITALS: BP 132/89
[2020-06-10 06:46] LABS: BASO % 0.7 % (0.0-1.0); EOS # 0.2 10^3/uL (0.0-0.5); EOS % 3.4 % (0.0-3.0); HEMATOCRIT 39.7 % (42.0-52.0); HEMOGLOBIN 12.6 g/dl (13.5-17.5); LYMPH % 18.2 % (24.0-44.0); MEAN CORPUSCULAR HEMOGLOBIN 30.8 pg (27.0-33.0); MEAN CORPUSCULAR HGB CONC 31.7 g/dl (32.0-36.5); MEAN CORPUSCULAR VOLUME 97.1 fl (80.0-96.0); MONO # 0.6 10^3/uL (0.0-0.8); MONO % 10.1 % (2.0-8.0); NEUTROPHILS # 3.7 10^3/uL (1.5-8.5); NEUTROPHILS % 66.9 % (36.0-66.0); PLATELET COUNT, AUTOMATED 124 10^3/uL (150-450); RED BLOOD COUNT 4.09 10^6/uL (4.30-6.10); WHITE BLOOD COUNT 5.6 10^3/uL (4.0-10.0)
[2020-06-10 07:11] LABS: BLOOD UREA NITROGEN 28 MG/DL (7-18); CALCIUM LEVEL 8.9 MG/DL (8.8-10.2); CARBON DIOXIDE LEVEL 31 MEQ/L (21-32); CHLORIDE LEVEL 106 MEQ/L (98-107); CREATININE FOR GFR 0.98 MG/DL (0.70-1.30); GLOMERULAR FILTRATION RATE > 60.0 (>35); GLUCOSE, FASTING 106 MG/DL (70-100); POTASSIUM SERUM 4.4 MEQ/L (3.5-5.1); SODIUM LEVEL 141 MEQ/L (136-145)
[2020-06-10] MEDS: IPRATROPIUM 0.5MG/ALBUTEROL 2.5MG INH SOL UD 3ML (DUONEB) NEB SCH ×3 (07:38→23:09)
[2020-06-10] MEDS: SENOKOT S TAB PO SCH ×3 (08:51→20:40)
[2020-06-10] MEDS: FUROSEMIDE 40 MG TAB PO SCH (08:52)
[2020-06-10] MEDS: atenoloL 25 MG TAB PO SCH (08:52)
[2020-06-10] MEDS: APIXABAN 5 MG TAB (ELIQUIS) PO SCH ×2 (08:52→20:40)
[2020-06-10] MEDS: levETIRAcetam 250MG TABLET (KEPPRA) PO SCH ×2 (08:52→20:40)
[2020-06-10] MEDS: TAMSULOSIN 0.4 MG CAP PO SCH (08:52)
[2020-06-10] MEDS: PANTOPRAZOLE 40MG TAB (PROTONIX) PO SCH (08:52)
[2020-06-10] MEDS: NORCO, ANEXSIA 5/325MG TABLET (HYDROcodone/ACETAMINOPHEN) PO PRN ×2 (08:53→20:41)
--- NOTE | 2020-06-10 09:44 | IPNPDOC ---
Subjective Date Seen The patient was seen on 06/10/20. Subjective Chief Complaint/HPI No new complaints. His constipation has resolved. Now he says that his stools in the bag are loose. continues to have severe pain on weight bearing. was able to get out of bed to chair. Objective Physical Examination General Exam: Positive: Alert, Cooperative, No Acute Distress Eye Exam: Positive: PERRLA, Conjunctiva & lids normal, EOMI; Negative: Sclera icteric Neck Exam: Positive: Supple; Negative: JVD, thyromegaly Chest Exam: Positive: Rhonchi, Wheezing, Diminished Heart Exam: Positive: Rate Normal, Irregular Rhythm, Normal S1, Normal S2; Negative: Murmurs, Rubs Abdomen Exam: Positive: Normal bowel sounds, Soft, Other (colostomy); Negative: Tenderness Extremity Exam: Positive: Normal pulses, Tenderness (right groin and right hip); Negative: Clubbing, Cyanosis, Edema Skin Exam: Positive: Lesion (right leg dry, scabbed venous stasis ulcer x 2 about 4 cm x 4 cm), Other skin issue (chronic venous stasis dermatitis) Neuro Exam: Positive: Normal Speech, Strength at 5/5 X4 ext, Normal Tone Assessment /Plan Assessment 85 year old male with PMH of Rectal cancer status post surgery and chemoradiation, status post colostomy, atrial fibrillation, PPM, COPD, Chronic hypercarbic and hypoxic respiratory failure, LIANNA not no CPAP only uses oxygen., hypertension, dyslipidemia, PAD, diabetes mellitus, chronic diastolic heart failure, CKD stage III, alcohol, tobacco abuse in the past, obesity, abdominal hernia, h/o Seizure had a mechanical fall on 06/05/20 while he was standing with his walker had just put on his pants and was trying to fix his suspenders and his who is WC bound was helping him. He fell over the walker on his right side since then he has severe pain at his right hip and is unable to bear weight or ambulate. He went to see ortho Dr Art chavez on 06/06/20 hip xray was done which was negative for any fracture. However he continued to be in severe pain and unable to bear weight or ambulate so came to the ED. In the ED CT of the right hip showed Subtle fractures along the right pubis and involving the right inferior pubic ramus with small adjacent hematoma and posttraumatic inflammatory stranding. He was admitted for pain control and evaluation for PT/OT. He complains of sharp aching pain at the right hip 10/10 in intensity when he tries to bear weight or ambulate. Right pubis and inferior pubic rami fracture. pain control PT/OT, weight bearing as tolerated. COPD with chronic hypercarbic and hypoxic respiratory failure Only oxygen at home , no CPAP will continue toya says has inhalers at home but does ot use them. LIANNA untreated. No CPAP. DM with diabetic neuropathy diet controlled Chronic venous stasis with stasis ulcer on the right and bilateral stasis dermatitis. follows with Dr Huynh Seizure cont keppra Afib/ annabella west syndroe Has PPM in place. atenolol and eliquis CKD stage 3 BPH flomax Chronic diastolic CHF appears Euvolemic at present cont lasix. Rectal cancer status post surgery and chemoradiation, status post colostomy, No issues at this time. Dispo: continued to rehab after dc. Awaiting ARU evaluation. Plan/VTE VTE Prophylaxis Ordered?: Yes VS, I&O, 24H, [place] Vital Signs/I&O Vital Signs Date Time Temp Pulse Resp B/P (MAP) Pulse Ox O2 Delivery O2 Flow Rate FiO2 06/10/20 08:53 18 Room Air 06/10/20 08:52 75 132/89 06/10/20 06:00 97.6 97 06/09/20 22:00 I&O- Last 24 Hours up to 6 AM 06/10/20 06:00 Intake Total 700 ml Output Total 875 ml Balance -175 ml Laboratory Data 24H LABS Laboratory Tests 2 06/10/20 06:26: Immature Granulocyte % (Auto) 0.7, Neutrophils (%) (Auto) 66.9H, Lymphocytes (%) (Auto) 18.2L, Monocytes (%) (Auto) 10.1H, Eosinophils (%) (Auto) 3.4H, Basophils (%) (Auto) 0.7, Neutrophils # (Auto) 3.7, Lymphocytes # (Auto) 1.0L, Monocytes # (Auto) 0.6, Eosinophils # (Auto) 0.2, Basophils # (Auto) 0.0, Nucleated Red Blood Cells % (auto) 0.0, Anion Gap 4L, Glomerular Filtration Rate > 60.0, Calcium Level 8.9 CBC/BMP Laboratory Tests 3/13/21 06:26 DENA MAYEN MD 13, 2021 09:44
[2020-06-10 14:00] VITALS: BP 105/65
[2020-06-10] MEDS: PRAVASTATIN 20 MG TAB PO SCH (20:40)
[2020-06-10 22:00] VITALS: BP 105/66
[2020-06-11 06:00] VITALS: BP 104/66
[2020-06-11 06:56] LABS: BASO % 0.7 % (0.0-1.0); EOS # 0.2 10^3/uL (0.0-0.5); EOS % 3.3 % (0.0-3.0); HEMATOCRIT 37.3 % (42.0-52.0); LYMPH # 1.2 10^3/uL (1.5-5.0); LYMPH % 21.4 % (24.0-44.0); MEAN CORPUSCULAR HEMOGLOBIN 30.6 pg (27.0-33.0); MEAN CORPUSCULAR HGB CONC 32.2 g/dl (32.0-36.5); MEAN CORPUSCULAR VOLUME 95.2 fl (80.0-96.0); MONO # 0.5 10^3/uL (0.0-0.8); MONO % 9.7 % (2.0-8.0); NEUTROPHILS # 3.5 10^3/uL (1.5-8.5); NEUTROPHILS % 64.2 % (36.0-66.0); PLATELET COUNT, AUTOMATED 145 10^3/uL (150-450); RED BLOOD COUNT 3.92 10^6/uL (4.30-6.10); WHITE BLOOD COUNT 5.5 10^3/uL (4.0-10.0)
[2020-06-11 07:26] LABS: BLOOD UREA NITROGEN 35 MG/DL (7-18); CALCIUM LEVEL 8.7 MG/DL (8.8-10.2); CARBON DIOXIDE LEVEL 29 MEQ/L (21-32); CHLORIDE LEVEL 106 MEQ/L (98-107); CREATININE FOR GFR 1.11 MG/DL (0.70-1.30); GLOMERULAR FILTRATION RATE > 60.0 (>35); GLUCOSE, FASTING 108 MG/DL (70-100); POTASSIUM SERUM 4.4 MEQ/L (3.5-5.1); SODIUM LEVEL 140 MEQ/L (136-145)
[2020-06-11] MEDS: IPRATROPIUM 0.5MG/ALBUTEROL 2.5MG INH SOL UD 3ML (DUONEB) NEB SCH ×3 (08:01→23:47)
[2020-06-11] MEDS: PANTOPRAZOLE 40MG TAB (PROTONIX) PO SCH (09:23)
[2020-06-11] MEDS: SENOKOT S TAB PO SCH ×2 (09:23→21:14)
[2020-06-11] MEDS: APIXABAN 5 MG TAB (ELIQUIS) PO SCH ×2 (09:23→21:14)
[2020-06-11] MEDS: NORCO, ANEXSIA 5/325MG TABLET (HYDROcodone/ACETAMINOPHEN) PO PRN (09:23)
[2020-06-11] MEDS: levETIRAcetam 250MG TABLET (KEPPRA) PO SCH ×2 (09:23→21:14)
[2020-06-11] MEDS: FUROSEMIDE 40 MG TAB PO SCH (09:24)
[2020-06-11] MEDS: TAMSULOSIN 0.4 MG CAP PO SCH (09:26)
[2020-06-11] MEDS: atenoloL 25 MG TAB PO SCH (09:57)
--- NOTE | 2020-06-11 11:11 | IPNPDOC ---
Subjective Date Seen The patient was seen on 06/11/20. Subjective Chief Complaint/HPI No complaints this morning. Working with PT. No pain when not moving. Objective Physical Examination General Exam: Positive: Alert, Cooperative, No Acute Distress Eye Exam: Positive: PERRLA, Conjunctiva & lids normal, EOMI; Negative: Sclera icteric Neck Exam: Positive: Supple; Negative: JVD, thyromegaly Chest Exam: Positive: Rhonchi, Wheezing, Diminished Heart Exam: Positive: Rate Normal, Irregular Rhythm, Normal S1, Normal S2; Negative: Murmurs, Rubs Abdomen Exam: Positive: Normal bowel sounds, Soft, Other (colostomy); Negative: Tenderness Extremity Exam: Positive: Normal pulses, Tenderness (right groin and right hip); Negative: Clubbing, Cyanosis, Edema Skin Exam: Positive: Lesion (right leg dry, scabbed venous stasis ulcer x 2 about 4 cm x 4 cm), Other skin issue (chronic venous stasis dermatitis) Neuro Exam: Positive: Normal Speech, Strength at 5/5 X4 ext, Normal Tone Assessment /Plan Assessment 85 year old male with PMH of Rectal cancer status post surgery and chemoradiation, status post colostomy, atrial fibrillation, PPM, COPD, Chronic hypercarbic and hypoxic respiratory failure, LIANNA not no CPAP only uses oxygen., hypertension, dyslipidemia, PAD, diabetes mellitus, chronic diastolic heart failure, CKD stage III, alcohol, tobacco abuse in the past, obesity, abdominal hernia, h/o Seizure had a mechanical fall on 06/05/20 while he was standing with his walker had just put on his pants and was trying to fix his suspenders and his who is WC bound was helping him. He fell over the walker on his right side since then he has severe pain at his right hip and is unable to bear weight or ambulate. He went to see ortho Dr Art chavez on 06/06/20 hip xray was done which was negative for any fracture. However he continued to be in severe pain and unable to bear weight or ambulate so came to the ED. In the ED CT of the right hip showed Subtle fractures along the right pubis and involving the right inferior pubic ramus with small adjacent hematoma and posttraumatic inflammatory stranding. He was admitted for pain control and evaluation for PT/OT. He complains of sharp aching pain at the right hip 10/10 in intensity when he tries to bear weight or ambulate. Right pubis and inferior pubic rami fracture. pain control PT/OT, weight bearing as tolerated. COPD with chronic hypercarbic and hypoxic respiratory failure Only oxygen at home , no CPAP will continue adrianneprosper says has inhalers at home but does ot use them. LIANNA untreated. No CPAP. DM with diabetic neuropathy diet controlled Chronic venous stasis with stasis ulcer on the right and bilateral stasis dermatitis. follows with Dr Huynh Seizure cont keppra Afib/ tachgabi jenna syndroe Has PPM in place. atenolol and eliquis CKD stage 3 BPH flomax Chronic diastolic CHF appears Euvolemic at present cont lasix. Rectal cancer status post surgery and chemoradiation, status post colostomy, No issues at this time. Dispo: continued to rehab after dc. Awaiting ARU evaluation. Plan/VTE VTE Prophylaxis Ordered?: Yes VS, I&O, 24H, [place] Vital Signs/I&O Vital Signs Date Time Temp Pulse Resp B/P (MAP) Pulse Ox O2 Delivery O2 Flow Rate FiO2 06/11/20 06:00 98.5 81 20 104/66 (79) 96 Room Air 06/09/20 22:00 I&O- Last 24 Hours up to 6 AM 06/11/20 06:00 Intake Total 1420 ml Output Total 1750 ml Balance -330 ml Laboratory Data 24H LABS Laboratory Tests 2 06/11/20 06:16: Immature Granulocyte % (Auto) 0.7, Neutrophils (%) (Auto) 64.2, Lymphocytes (%) (Auto) 21.4L, Monocytes (%) (Auto) 9.7H, Eosinophils (%) (Auto) 3.3H, Basophils (%) (Auto) 0.7, Neutrophils # (Auto) 3.5, Lymphocytes # (Auto) 1.2L, Monocytes # (Auto) 0.5, Eosinophils # (Auto) 0.2, Basophils # (Auto) 0.0, Nucleated Red Blood Cells % (auto) 0.0, Anion Gap 5L, Glomerular Filtration Rate > 60.0, Calcium Level 8.7L CBC/BMP Laboratory Tests 06/11/20 06:16 DENA MAYEN MD Jun 11, 2020 07:59
[2020-06-11 14:00] VITALS: BP 107/71
[2020-06-11] MEDS: PRAVASTATIN 20 MG TAB PO SCH (21:14)
[2020-06-11 22:00] VITALS: BP 118/84
[2020-06-12 06:12] VITALS: BP 145/83
[2020-06-12 07:30] VITALS: BP 114/71
[2020-06-12] MEDS: IPRATROPIUM 0.5MG/ALBUTEROL 2.5MG INH SOL UD 3ML (DUONEB) NEB SCH ×3 (07:46→23:50)
[2020-06-12] MEDS: PANTOPRAZOLE 40MG TAB (PROTONIX) PO SCH (10:00)
[2020-06-12] MEDS: APIXABAN 5 MG TAB (ELIQUIS) PO SCH ×2 (10:00→20:51)
[2020-06-12] MEDS: SENOKOT S TAB PO SCH ×2 (10:01→20:51)
[2020-06-12] MEDS: FUROSEMIDE 40 MG TAB PO SCH (10:01)
[2020-06-12] MEDS: TAMSULOSIN 0.4 MG CAP PO SCH (10:01)
[2020-06-12] MEDS: levETIRAcetam 250MG TABLET (KEPPRA) PO SCH ×2 (10:02→20:51)
[2020-06-12] MEDS: atenoloL 25 MG TAB PO SCH (10:03)
--- NOTE | 2020-06-12 11:51 | IPNPDOC ---
Subjective Date Seen The patient was seen on 06/12/20. Subjective Chief Complaint/HPI No complaints this morning. working with PT. Objective Physical Examination General Exam: Positive: Alert, Cooperative, No Acute Distress Eye Exam: Positive: PERRLA, Conjunctiva & lids normal, EOMI; Negative: Sclera icteric Neck Exam: Positive: Supple; Negative: JVD, thyromegaly Chest Exam: Positive: Rhonchi, Wheezing, Diminished Heart Exam: Positive: Rate Normal, Irregular Rhythm, Normal S1, Normal S2; Negative: Murmurs, Rubs Abdomen Exam: Positive: Normal bowel sounds, Soft, Other (colostomy); Negative: Tenderness Extremity Exam: Positive: Normal pulses, Tenderness (right groin and right hip); Negative: Clubbing, Cyanosis, Edema Skin Exam: Positive: Lesion (right leg dry, scabbed venous stasis ulcer x 2 about 4 cm x 4 cm), Other skin issue (chronic venous stasis dermatitis) Neuro Exam: Positive: Normal Speech, Strength at 5/5 X4 ext, Normal Tone Assessment /Plan Assessment 85 year old male with PMH of Rectal cancer status post surgery and chemoradiation, status post colostomy, atrial fibrillation, PPM, COPD, Chronic hypercarbic and hypoxic respiratory failure, LIANNA not no CPAP only uses oxygen., hypertension, dyslipidemia, PAD, diabetes mellitus, chronic diastolic heart failure, CKD stage III, alcohol, tobacco abuse in the past, obesity, abdominal hernia, h/o Seizure had a mechanical fall on 06/05/20 while he was standing with his walker had just put on his pants and was trying to fix his suspenders and his who is WC bound was helping him. He fell over the walker on his right side since then he has severe pain at his right hip and is unable to bear weight or ambulate. He went to see ortho Dr Art chavez on 06/06/20 hip xray was done which was negative for any fracture. However he continued to be in severe pain and unable to bear weight or ambulate so came to the ED. In the ED CT of the right hip showed Subtle fractures along the right pubis and involving the right inferior pubic ramus with small adjacent hematoma and posttraumatic inflammatory stranding. He was admitted for pain control and evaluation for PT/OT. He complains of sharp aching pain at the right hip 10/10 in intensity when he tries to bear weight or ambulate. Right pubis and inferior pubic rami fracture. pain control PT/OT, weight bearing as tolerated. COPD with chronic hypercarbic and hypoxic respiratory failure Only oxygen at home , no CPAP will continue adrianneprosper says has inhalers at home but does ot use them. LIANNA untreated. No CPAP. DM with diabetic neuropathy diet controlled Chronic venous stasis with stasis ulcer on the right and bilateral stasis dermatitis. follows with Dr Huynh Seizure cont keppra Afib/ annabella pegueroroe Has PPM in place. atenolol and eliquis CKD stage 3 BPH flomax Chronic diastolic CHF appears Euvolemic at present cont lasix. Rectal cancer status post surgery and chemoradiation, status post colostomy, No issues at this time. Dispo: continued to rehab after dc. Awaiting ARU evaluation. Plan/VTE VTE Prophylaxis Ordered?: Yes VS, I&O, 24H, [place] Vital Signs/I&O Vital Signs Date Time Temp Pulse Resp B/P (MAP) Pulse Ox O2 Delivery O2 Flow Rate FiO2 06/12/20 10:03 74 109/60 06/12/20 07:30 97.8 18 98 Room Air 06/09/20 22:00 I&O- Last 24 Hours up to 6 AM 06/12/20 06:00 Intake Total 1450 ml Output Total 1351 ml Balance 99 ml DENA MAYEN MD Jun 12, 2020 11:51
[2020-06-12 14:01] VITALS: BP 110/63
[2020-06-12] MEDS: PRAVASTATIN 20 MG TAB PO SCH (20:51)
[2020-06-12] MEDS: NORCO, ANEXSIA 5/325MG TABLET (HYDROcodone/ACETAMINOPHEN) PO PRN (21:13)
[2020-06-12 22:00] VITALS: BP 127/93
[2020-06-13 06:00] VITALS: BP 131/88
[2020-06-13] MEDS: IPRATROPIUM 0.5MG/ALBUTEROL 2.5MG INH SOL UD 3ML (DUONEB) NEB SCH ×2 (07:22→14:15)
[2020-06-13] MEDS ORDERED: CEFDINIR 300 MG CAP (OMNICEF) PO SCH (09:00)
[2020-06-13] MEDS: SENOKOT S TAB PO SCH (09:56)
[2020-06-13 09:57] VITALS: BP 131/88
[2020-06-13] MEDS: levETIRAcetam 250MG TABLET (KEPPRA) PO SCH (09:57)
[2020-06-13] MEDS: APIXABAN 5 MG TAB (ELIQUIS) PO SCH (09:57)
[2020-06-13] MEDS: TAMSULOSIN 0.4 MG CAP PO SCH (09:57)
[2020-06-13] MEDS: PANTOPRAZOLE 40MG TAB (PROTONIX) PO SCH (09:57)
[2020-06-13] MEDS: atenoloL 25 MG TAB PO SCH (09:57)
[2020-06-13] MEDS: FUROSEMIDE 40 MG TAB PO SCH (09:57)
[2020-06-13] MEDS: NORCO, ANEXSIA 5/325MG TABLET (HYDROcodone/ACETAMINOPHEN) PO PRN (10:06)
[2020-06-13] MEDS ORDERED: CEFD300CAP PO ×2 (11:30→23:46)
[2020-06-13] MEDS ORDERED: SENN-52 PO (11:30)
[2020-06-13] MEDS ORDERED: HYDR-3715 PO (11:44)
--- NOTE | 2020-06-13 11:48 | DS.PDOC ---
Discharge Summary General Date of Admission Jun 08, 2020 at 14:06 Date of Discharge 06/13/20 Discharge Summary PROCEDURES PERFORMED DURING STAY: [None]. DISCHARGE DIAGNOSES: Right pubis and inferior pubic rami fracture. Lumber spinal stenosis with neural foraminal stenosis. UTI SECONDARY DIAGNOSIS: Rectal cancer status post surgery and chemoradiation, status post colostomy, atrial fibrillation, PPM, COPD, Chronic hypercarbic and hypoxic respiratory failure, LIANNA not no CPAP only uses oxygen, hypertension, dyslipidemia, PAD, diabetes mellitus, chronic diastolic heart failure, CKD stage III, alcohol, tobacco abuse in the past, obesity, abdominal hernia, Seizure COMPLICATIONS/CHIEF COMPLAINT: Pelvis Fracture Rt. HOSPITAL COURSE: 85 year old male with PMH of Rectal cancer status post surgery and chemoradiation, status post colostomy, atrial fibrillation, PPM, COPD, Chronic hypercarbic and hypoxic respiratory failure, LIANNA no CPAP only uses oxygen., hypertension, dyslipidemia, PAD, diabetes mellitus, chronic diastolic heart failure, CKD stage III, alcohol, tobacco abuse in the past, obesity, abdominal hernia, h/o Seizure had a mechanical fall on 06/05/20 while he was sta nding with his walker had just put on his pants and was trying to fix his suspenders and his who is WC bound was helping him. He fell over the walker on his right side since then he has severe pain at his right hip and is unable to bear weight or ambulate. He went to see ortho Dr Art chavez on 06/06/20 hip xray was done which was negative for any fracture. However he continued to be in severe pain and unable to bear weight or ambulate so came to the ED. In the ED CT of the right hip showed Subtle fractures along the right pubis and involving the right inferior pubic ramus with small adjacent hematoma and posttraumatic inflammatory stranding. He was admitted for pain control and evaluation for PT/OT. He complains of sharp aching pain at the right hip 10/10 in intensity when he tries to bear weight or ambulate. Right pubis and inferior pubic rami fracture. pain control with [place]. PT/OT, weight bearing as tolerated. transfer to ARU Lumber spinal stenosis with neural foraminal stenosis. PT/OT. Frequency of urination with dirty UA and urinary retention ? UTI westley give Cefdinir follow up Urine culture. COPD with chronic hypercarbic and hypoxic respiratory failure Only oxygen at home , no CPAP will continue duonebs says has inhalers at home but does not use them. no exacerbation LIANNA untreated. No CPAP. DM with diabetic neuropathy diet controlled Chronic venous stasis with stasis ulcer on the right and bilateral stasis dermatitis. follows with Dr Huynh Seizure cont keppra Afib/ tachy jenna syndroe Has PPM in place. atenolol and eliquis CKD stage 3 creatinine stable. BPH flomax Chronic diastolic CHF appears Euvolemic at present cont lasix. Rectal cancer status post surgery and chemoradiation, status post colostomy, No issues at this time. Dispo: continued to rehab after dc. Awaiting ARU evaluation. DISCHARGE MEDICATIONS: Please see below. ALLERGIES: Please see below. PHYSICAL EXAMINATION ON DISCHARGE: VITAL SIGNS: Please see below. General Exam: Positive: Alert, Cooperative, No Acute Distress Eye Exam: Positive: PERRLA, Conjunctiva & lids normal, EOMI; Negative: Sclera icteric Neck Exam: Positive: Supple; Negative: JVD, thyromegaly Chest Exam: Positive: Rhonchi, Wheezing, Diminished Heart Exam: Positive: Rate Normal, Irregular Rhythm, Normal S1, Normal S2; Negative: Murmurs, Rubs Abdomen Exam: Positive: Normal bowel sounds, Soft, Other (colostomy); Negative: Tenderness Extremity Exam: Positive: Normal pulses, Tenderness (right groin and right hip); Negative: Clubbing, Cyanosis, Edema Skin Exam: Positive: Lesion (right leg dry, scabbed venous stasis ulcer x 2 about 4 cm x 4 cm), Other skin issue (chronic venous stasis dermatitis) Neuro Exam: Positive: Normal Speech, Strength at 5/5 X4 ext, Normal Tone LABORATORY DATA: Please see below. IMAGING: Extremity CT: Subtle fractures along the right pubis and involving the right inferior pubic ramus with small adjacent hematoma and posttraumatic inflammatory stranding. Lumber Spine CT: No traumatic abnormality noted. Degenerative spondylosis changes. Mild central canal stenosis at L4-5 and L3-4. Bilateral neural foraminal encroachment at L5-S1. ACTIVITY: [As tolerated]. DIET: Regular DISCHARGE PLAN: Continued rehab DISPOSITION: ARU DISCHARGE INSTRUCTIONS: Follow up with PMD in 1 month. DISCHARGE CONDITION: [Stable]. TIME SPENT ON DISCHARGE: 35 minutes. Vital Signs/I&Os Vital Signs Date Time Temp Pulse Resp B/P (MAP) Pulse Ox O2 Delivery O2 Flow Rate FiO2 06/13/20 10:36 18 06/13/20 09:57 64 131/88 06/13/20 06:00 97.6 95 Room Air 06/09/20 22:00 I&O- Last 24 Hours up to 6 AM 06/13/20 06:00 Intake Total 1240 ml Output Total 2700 ml Balance -1460 ml Laboratory Data Labs 24H Laboratory Tests 2 06/13/20 08:02: Urine Color YELLOW, Urine Appearance CLEAR, Urine pH 6.0, Urine Specific [place] 1.021, Urine Protein NEGATIVE, Urine Glucose (UA) NEGATIVE, Urine Ketones NEGATIVE, Urine Blood 1+H, Urine Nitrite POSITIVEH, Urine Bilirubin NEGATIVE, Urine Urobilinogen 0.2, Urine Leukocyte Esterase 2+H, Urine WBC (Auto) 15H, Urine RBC (Auto) 2, Urine Hyaline Casts (Auto) 0, Urine Bacteria (Auto) NEGATIVE, Urine Squamous Epithelial Cells 0, Urine Mucus (Auto) SMALL, Urine Sperm (Auto) Microbiology Microbiology 06/13/20 Urine Culture, Received Pending Discharge Medications Scheduled Apixaban (Eliquis) 5 Mg Tablet, 5 MG PO BID, (Reported) Atenolol (Atenolol) 25 Mg Tablet, 25 MG PO DAILY, (Reported) Calcium Carbonate/Vitamin D3 (Oyster Shell Calcium-Vit D Tab) 1 Each Tablet, 1 TAB PO DAILY, (Reported) Cefdinir (Cefdinir) 300 Mg Capsule, 300 MG PO BID Esomeprazole Magnesium (Esomeprazole Magnesium) 40 Mg Capsule.dr, 40 MG PO DAILY, (Reported) Furosemide (Furosemide) 40 Mg Tablet, 40 MG PO DAILY, (Reported) Levetiracetam (Levetiracetam) 750 Mg Tablet, 750 MG PO BID, (Reported) Pravastatin Sodium (Pravastatin Sodium) 40 Mg Tablet, 40 MG PO QHS, (Reported) Sennosides/Docusate Sodium (Senna Plus Tablet) 1 Each Tablet, 1 TAB PO BID Tamsulosin HCl (Flomax) 0.4 Mg Capsule, 0.4 MG PO DAILY, (Reported) Scheduled PRN Hydrocodone/Acetaminophen (Hydrocodone-Acetamin 5-325 mg) 1 Each Tablet, 1-2 TAB PO Q6HP PRN for MILD/MODERATE PAIN (PS 1-7) Allergies Coded Allergies: No Known Allergies (Unverified , 05/20/19) DENA MAYEN MD Jun 13, 2020 11:48
[2020-06-13 14:23] VITALS: BP 130/90
[2020-06-13] MEDS ORDERED: SENN-50 PO (23:46)
[2020-06-13] MEDS ORDERED: HYDR-4571 PO (23:46)
== END 2020-06-13 17:40 | DRG 536 ==
LOC: M ED 11:46 → M ED INP 14:06 → ENRESERV 15:04 → M MS5PR 15:20
PROVIDERS: ADMIT Internal Medicine Nephrology; ATTEND Internal Medicine Nephrology
DX: S32.501A Unspecified fracture of right pubis, initial encounter for closed fracture (principal); I13.0 Hypertensive heart and chronic kidney disease with heart failure and stage 1 through stage 4 chronic kidney disease, or unspecified chronic kidney disease; I50.32 Chronic diastolic (congestive) heart failure; J96.12 Chronic respiratory failure with hypercapnia; J96.11 Chronic respiratory failure with hypoxia; N39.0 Urinary tract infection, site not specified; N18.30 Chronic kidney disease, stage 3 unspecified; J44.9 Chronic obstructive pulmonary disease, unspecified; I48.91 Unspecified atrial fibrillation; E11.40 Type 2 diabetes mellitus with diabetic neuropathy, unspecified; M48.061 Spinal stenosis, lumbar region without neurogenic claudication; G47.33 Obstructive sleep apnea (adult) (pediatric); E78.5 Hyperlipidemia, unspecified; F10.10 Alcohol abuse, uncomplicated; F17.200 Nicotine dependence, unspecified, uncomplicated; Z85.048 Personal history of other malignant neoplasm of rectum, rectosigmoid junction, and anus; R56.9 Unspecified convulsions; N40.0 Benign prostatic hyperplasia without lower urinary tract symptoms; Z79.899 Other long term (current) drug therapy; Z95.0 Presence of cardiac pacemaker; I83.019 Varicose veins of right lower extremity with ulcer of unspecified site; W18.30XA Fall on same level, unspecified, initial encounter; Y92.009 Unspecified place in unspecified non-institutional (private) residence as the place of occurrence of the external cause

== ENCOUNTER 2020-06-13 11:03 | Inpatient (IN) | payer MEDICARE, OTHER ==
[~2020-06-13] VITALS: Ht 172.7 cm; Wt 90.9 kg
[~2020-06-13 11:03] MED LIST changes: +LEVE750T5 PO; +OYST500T94 PO
[2020-06-13] MEDS ORDERED: SENN-52 PO (11:30)
[2020-06-13] MEDS ORDERED: CEFD300CAP PO ×2 (11:30→23:46)
[2020-06-13] MEDS ORDERED: HYDR-3715 PO (11:44)
[2020-06-13] MEDS ORDERED: MIRALAX *UNIT DOSE* 17GM PACKET PO PRN (16:10)
[2020-06-13] MEDS: IPRATROPIUM 0.5MG/ALBUTEROL 2.5MG INH SOL UD 3ML (DUONEB) NEB SCH (19:55)
[2020-06-13 20:30] VITALS: BP 122/86
[2020-06-13] MEDS: CEFDINIR 300 MG CAP (OMNICEF) PO SCH (21:05)
[2020-06-13] MEDS: APIXABAN 5 MG TAB (ELIQUIS) PO SCH (21:06)
[2020-06-13] MEDS: ACETAMINOPHEN 500 MG TAB PO SCH (21:06)
[2020-06-13] MEDS: oxyCODONE 5MG TAB PO PRN (21:07)
[2020-06-13] MEDS: PRAVASTATIN 20 MG TAB PO SCH (21:07)
[2020-06-13] MEDS: SENNA 8.6 MG TAB (SENOKOT) PO SCH (21:07)
[2020-06-13] MEDS: DOCUSATE SODIUM 100MG CAPSULE PO SCH (21:07)
[2020-06-13] MEDS: levETIRAcetam 250MG TABLET (KEPPRA) PO SCH (21:08)
[2020-06-13] MEDS: LACTOBACILLUS ACIDOPHILUS CAP (BACID) PO SCH (21:08)
[2020-06-13] MEDS: REMEDY PHYTOPLEX Z-GUARD PASTE 113GM TUBE (FROM STOREROOM PRODUCT) TOP SCH (21:08)
[2020-06-13] MEDS ORDERED: SENN-50 PO (23:46)
[2020-06-13] MEDS ORDERED: HYDR-4571 PO (23:46)
[2020-06-14 06:23] VITALS: BP 131/65
[2020-06-14 06:42] LABS: BASO # 0.1 10^3/uL (0.0-0.2); EOS # 0.2 10^3/uL (0.0-0.5); EOS % 3.9 % (0.0-3.0); HEMATOCRIT 38.4 % (42.0-52.0); HEMOGLOBIN 12.3 g/dl (13.5-17.5); LYMPH # 1.4 10^3/uL (1.5-5.0); LYMPH % 23.2 % (24.0-44.0); MEAN CORPUSCULAR HEMOGLOBIN 30.8 pg (27.0-33.0); MONO # 0.5 10^3/uL (0.0-0.8); MONO % 8.6 % (2.0-8.0); NEUTROPHILS # 3.7 10^3/uL (1.5-8.5); NEUTROPHILS % 62.8 % (36.0-66.0); PLATELET COUNT, AUTOMATED 179 10^3/uL (150-450)
[2020-06-14 07:11] LABS: ALBUMIN 2.8 GM/DL (3.2-5.2); ALT/SGPT 19 U/L (12-78); BILIRUBIN,TOTAL 0.7 MG/DL (0.2-1.0); BLOOD UREA NITROGEN 44 MG/DL (7-18); CALCIUM LEVEL 9.2 MG/DL (8.8-10.2); CARBON DIOXIDE LEVEL 32 MEQ/L (21-32); CHLORIDE LEVEL 104 MEQ/L (98-107); GLOMERULAR FILTRATION RATE > 60.0 (>35); GLUCOSE, FASTING 104 MG/DL (70-100); POTASSIUM SERUM 4.3 MEQ/L (3.5-5.1); SODIUM LEVEL 140 MEQ/L (136-145); TOTAL PROTEIN 6.4 GM/DL (6.4-8.2)
[2020-06-14] MEDS: IPRATROPIUM 0.5MG/ALBUTEROL 2.5MG INH SOL UD 3ML (DUONEB) NEB SCH ×4 (07:15→19:39)
[2020-06-14] MEDS: CEFDINIR 300 MG CAP (OMNICEF) PO SCH ×2 (09:50→20:44)
[2020-06-14] MEDS: PANTOPRAZOLE 40MG TAB (PROTONIX) PO SCH (09:50)
[2020-06-14] MEDS: APIXABAN 5 MG TAB (ELIQUIS) PO SCH ×2 (09:50→20:44)
[2020-06-14] MEDS: DOCUSATE SODIUM 100MG CAPSULE PO SCH ×2 (09:50→20:44)
[2020-06-14] MEDS: TAMSULOSIN 0.4 MG CAP PO SCH (09:50)
[2020-06-14] MEDS: LACTOBACILLUS ACIDOPHILUS CAP (BACID) PO SCH ×3 (09:51→20:44)
[2020-06-14] MEDS: FUROSEMIDE 40 MG TAB PO SCH (09:51)
[2020-06-14] MEDS: levETIRAcetam 250MG TABLET (KEPPRA) PO SCH ×2 (09:51→20:44)
[2020-06-14] MEDS: ACETAMINOPHEN 500 MG TAB PO SCH ×3 (09:51→20:45)
[2020-06-14] MEDS: atenoloL 25 MG TAB PO SCH (09:52)
[2020-06-14] MEDS: REMEDY PHYTOPLEX Z-GUARD PASTE 113GM TUBE (FROM STOREROOM PRODUCT) TOP SCH ×3 (09:53→20:45)
--- NOTE | 2020-06-14 11:20 | HPEPDOC ---
Allergy Specialist Note DATE OF ADMISSION: 06-13-20 DATE OF SERVICE: 06-14-20 TIME OF ADMISSION: Please refer to physician's admission order. SOURCE OF ADMISSION INFORMATION: [facility] record and patient CHIEF COMPLAINT: pelvic fracture HISTORY OF PRESENT ILLNESS: 85M pmh rectal cancer s/p chemo-radiation and surgery s/p colostomy, Afib, PM, COPD, LIANNA not on CPAP, HTn, HLD, DM with peripheral polyneuropathy and LE wounds followed by Dr. Huynh, chronic diastolic CHF, CKD3, obesity, seizures who fell at home while attempting to get dressed and had a negative work-up at outpatient orthopedics, but presented to [facility] on 06-08-[address] LE showed, Subtle fractures along the right pubis and involving the right inferior pubic ramus with small adjacent hematoma and posttraumatic inflammatory stranding. He was made WBAT, provided with oral analgesics, and started on Cefdinir for suspected UTI when he complained of increased urinary frequency and UA showed nitrites with leukocyte esterase. He was evaluated by therapy, noted to have mobility and ADL impairments and deemed medically appropriate for discharge to ARU on 06-13-20. REVIEW OF SYSTEMS: The following is a completed review of systems and has been reviewed. Review of systems otherwise unremarkable. PAIN: Patient self reports right pelvic pain with movement EYES: No recent vision changes EARS, NOSE, & THROAT: No throat pain, or dysphagia, or rhinorrhea CARDIOVASCULAR: Denies chest pain or palpitations PULMONARY: Denies shortness of breath GASTROINTESTINAL: Denies constipation/diarrhea, +colostomy GENITOURINARY: denies dysuria MUSCULOSKELETAL: right sided weakness NEUROLOGICAL:+ paresthesias HEMATOLOGICAL: denies easy bruising SKIN: RLE chronic wound PSYCHIATRIC: Unremarkable All other review of systems found to be negative. PAST MEDICAL HISTORY: as per HPI PAST SURGICAL HISTORY: as per HPI and abdominoperineal resection with right sided colostomy 2011, SBO with parastomal hernia repair, lysis of adhesions, tonsillectomy, cataract surgery ALLERGIES: Please see below. MEDICATIONS: Please see below. FAMILY HISTORY: Throat cancer, osteoporosis SOCIAL HISTORY: Former ETOH and smoking hx, no illicit drugs DIET: low sodium PHYSICAL EXAMINATION: VITAL SIGNS: Please see below. GENERAL: Pleasant and cooperative. No acute distress. HEENT: PERRL. Extraocular movements intact. Clear conjunctiva CARDIOVASCULAR: Irregular rate and rhythm. No murmurs, rubs, or gallops LUNGS: Clear to auscultation bilaterally. No wheezes. No rhonchi ABDOMEN: Soft, nontender, nondistended. Positive bowel sounds. Normal active bowel sounds]. NEUROLOGICAL: Alert and oriented times three. Cranial nerves II through XII grossly intact. Sensation decreased in stocking pattern EXTREMITIES: 5\5 strength bilateral upper extremities. 4\5 strength right lower extremity (limited due to pain). 5/5 strength in left lower extremity. SKIN: Right anterior calf with dry ulcer, sacrum with stage 1 pressure ulcer LABORATORY DATA: Please see below. IMAGING: Imaging documentation personally reviewed by record FUNCTIONAL STATUS: Premorbid: Modified independent with all activities of daily life as well as mobility On Admission: Min-Mod assist for bed mobility, functional transfers, dressing, toileting GOALS: Mod-I bed mobility, functional transfers, dressing, toileting, ambulating household distances ASSESSMENT: 85-year-old M with past medical history of HTN, diastolic CHF, COPD who presents status post fall with pelvic fracture PLAN: 1. Rehab- PT/OT advance mobility and ADLs, strengthen/stretch/maintain ROM all 4 limbs 2. Neuro- peripheral polyneuropathy due to DM contributing to overall functional impairments and increased risk of falls -seizures disorder- on keppra 3. ortho- right pubis and right inferior pubic ramus fracture, WBAT- f/u ortho on d/c 4. CArdiac- hx of AFib with PM, c/u eliquis and atenolol -hld- c/u statin -chronic diastolic CHF c/u lasix, daily weights, fluid restrict -medicine consulted to assist in overall management 5. Resp- hx of COPD not on 02, DUonebs, monitor for infection -LIANNA not on CPAP 6. Endo- hx of DM diet controlled 7. Pain- tylenol and oxycodone 8. DVT ppx- on full dose eliquis 9. GI ppx- protonix 10. - c/u cefdinir for suspected UTI, monitor PVRs 11. Dispo- tbd POST ADMISSION PHYSICIAN EVALUATION: Medical and functional status: Description of medical status, medical assessment: As above. Rehabilitation diagnosis and current and prior cold morbid medical conditions as above. Risk of complications and plans to mitigate them as above. Description of functional status current status is as above. Prior status as above. Status compared to preadmission: There are no clinically significant differences between the patient's current status and the information described on the preadmission screening document. Treatment plan anticipated: Treatment plan is as described above. Required disciplines including physical therapy, occupational therapy, others as noted above. Intensity of services: 3 hours a day, 6 days a week. Special considerations: There are no specific special or safety considerations that would likely preclude immediate implementation of an intensive rehabilitation program or subsequently influence the plan of care. ATTESTATION: Considering all the information above, it is my best judgment that this patient requires intensive rehabilitation therapy as described above and an inpatient hospital environment due to the complexity of nursing, medical, and rehabilitation needs required by the patient. Furthermore, this patient can reasonably be expected to participate in an benefit from an inpatient rehabilitation stay with an interdisciplinary team approach to the delivery of rehabilitation care under the direction and supervision of rehabilitation physician. PROGNOSIS: good ESTIMATED LENGTH OF STAY:14-18 days. PROJECTED DISCHARGE DESTINATION: Home with family support and any durable medical equipment required to increase functional safety and mobility. TIME SPENT COUNSELING AND COORDINATING INITIAL CARE: Greater than 70 minutes. Vital Signs Vital Sign - Last 24 Hours 06/13/20 06/13/20 06/13/20 06/14/20 20:30 21:07 21:45 06:23 Temp 97.7 97.4 Pulse 82 58 Resp 18 18 18 18 B/P (MAP) 122/86 (98) 131/65 (87) Pulse Ox 96 95 O2 Delivery Room Air Room Air 06/14/20 09:52 Pulse 72 B/P (MAP) 134/62 Laboratory Data CBC/BMP Laboratory Tests 06/14/20 06:18 Labs 24H Laboratory Tests 2 06/14/20 06:18: Immature Granulocyte % (Auto) 0.5, Neutrophils (%) (Auto) 62.8, Lymphocytes (%) (Auto) 23.2L, Monocytes (%) (Auto) 8.6H, Eosinophils (%) (Auto) 3.9H, Basophils (%) (Auto) 1.0, Neutrophils # (Auto) 3.7, Lymphocytes # (Auto) 1.4L, Monocytes # (Auto) 0.5, Eosinophils # (Auto) 0.2, Basophils # (Auto) 0.1, Nucleated Red Blood Cells % (auto) 0.0, Anion Gap 4L, Glomerular Filtration Rate > 60.0, Calcium Level 9.2, Total Bilirubin 0.7, Aspartate Amino Transf (AST/SGOT) 11, Alanine Aminotransferase (ALT/SGPT) 19, Alkaline Phosphatase 89, Total Protein 6.4, Albumin 2.8L, Albumin/Globulin Ratio 0.8 Home Medications Scheduled Apixaban (Eliquis) 5 Mg Tablet, 5 MG PO BID, (Reported) Atenolol (Atenolol) 25 Mg Tablet, 25 MG PO DAILY, (Reported) Calcium Carbonate/Vitamin D3 (Oyster Shell Calcium-Vit D Tab) 1 Each Tablet, 1 TAB PO DAILY, (Reported) Cefdinir (Cefdinir) 300 Mg Capsule, 300 MG PO BID, (Reported) HAS NOT STARTED AT HOME Esomeprazole Magnesium (Esomeprazole Magnesium) 40 Mg Capsule.dr, 40 MG PO DAILY, (Reported) Furosemide (Furosemide) 40 Mg Tablet, 40 MG PO DAILY, (Reported) Levetiracetam (Levetiracetam) 750 Mg Tablet, 750 MG PO BID, (Reported) Pravastatin Sodium (Pravastatin Sodium) 40 Mg Tablet, 40 MG PO QHS, (Reported) Sennosides/Docusate Sodium (Senna Plus Tablet) 1 Each Tablet, 1 TAB PO BID, (Reported) HAS NOT STARTED AT HOME Tamsulosin HCl (Flomax) 0.4 Mg Capsule, 0.4 MG PO DAILY, (Reported) Scheduled PRN Hydrocodone/Acetaminophen (Hydrocodone-Acetamin 5-325 mg) 1 Each Tablet, 1 TAB PO Q6H PRN for PAIN, (Reported) HAS NOT STARTED AT HOME: CAN TAKE 2 TABS PER DOSE, NO MORE THAN 6 TABS PER DAY. Allergies Coded Allergies: No Known Allergies (Unverified , 05/20/19) A-FIB/CHADSVASC A-FIB History Current/History of A-Fib/PAF?: Yes Current PO Anticoag Therapy: Yes NATA VANESSA MD Jun 14, 2020 11:20
--- NOTE | 2020-06-14 11:51 | IPNPDOC ---
Subjective Date Seen The patient was seen on 06/14/20. Subjective Chief Complaint/HPI No complaints this morning. He does say he always has frequency of urination and has to use the urinal every 1 to 2 hours. No burning or pain today. Objective Physical Examination General Exam: Positive: Alert, Cooperative, No Acute Distress Eye Exam: Positive: PERRLA, Conjunctiva & lids normal, EOMI; Negative: Sclera icteric ENT Exam: Positive: Atraumatic, Mucous membr. moist/pink, Pharynx Normal Neck Exam: Positive: Supple; Negative: JVD, thyromegaly Chest Exam: Positive: Wheezing, Diminished (overall air entry) Heart Exam: Positive: Rate Normal, Irregular Rhythm, Normal S1, Normal S2; Negative: Murmurs, Rubs Abdomen Exam: Positive: Normal bowel sounds, Soft, Other (colostomy in place); Negative: Tenderness, Hepatospenomegaly Extremity Exam: Negative: Clubbing, Cyanosis, Edema Skin Exam: Positive: Other skin issue (chronic stasis dermatitis, chronic stasis ulcer (right leg dry, scabbed venous stasis ulcer x 2 about 4 cm x 4 cm),) Assessment /Plan Assessment 85 year old male with PMH of Rectal cancer status post surgery and chemoradiation, status post colostomy, atrial fibrillation, PPM, COPD, Chronic hypercarbic and hypoxic respiratory failure, LIANNA not no CPAP only uses oxygen., hypertension, dyslipidemia, PAD, diabetes mellitus, chronic diastolic heart analisa lure, CKD stage III, alcohol, tobacco abuse in the past, obesity, abdominal hernia, h/o Seizure had a mechanical fall on 06/05/20 while he was standing with his walker had just put on his pants and was trying to fix his suspenders and his who is WC bound was helping him. He fell over the walker on his right side since then he has severe pain at his right hip and is unable to bear weight or ambulate. He went to see ortho Dr Art chavez on 06/06/20 hip xray was done which was negative for any fracture. However he continued to be in severe pain and unable to bear weight or ambulate so came to the ED. In the ED CT of the right hip showed Subtle fractures along the right pubis and involving the right inferior pubic ramus with small adjacent hematoma and posttraumatic inflammatory stranding. He was admitted for pain control and evaluation for PT/OT. He complains of sharp aching pain at the right hip 10/10 in intensity when he tries to bear weight or ambulate. Right pubis and inferior pubic rami fracture. pain control PT/OT, weight bearing as tolerated. Frequency of urination with Dirty UA urine culture is contaminated. cannot rule out UTI as he had dysuria so will continue cefdinir. COPD with chronic hypercarbic and hypoxic respiratory failure Only oxygen at home , no CPAP will continue toya prn says has inhalers at home but does not use them. LIANNA untreated. No CPAP. DM with diabetic neuropathy diet controlled Chronic venous stasis with stasis ulcer on the right and bilateral stasis dermatitis. follows with Dr Huynh Seizure cont keppra Afib/ tachy jenna syndrome Has PPM in place. atenolol and eliquis CKD stage 3 BPH with LUTs flomax Chronic diastolic CHF appears Euvolemic at present cont lasix. Rectal cancer status post surgery and chemoradiation, status post colostomy, No issues at this time. Plan/VTE VTE Prophylaxis Ordered?: Yes VS, I&O, [facility]H, [facility] Vital Signs/I&O Vital Signs Date Time Temp Pulse Resp B/P (MAP) Pulse Ox O2 Delivery O2 Flow Rate FiO2 06/14/20 06:23 97.4 58 18 131/65 (87) 95 Room Air I&O- Last 24 Hours up to 6 AM 06/14/20 06:00 Intake Total 195 ml Output Total 1779 ml Balance -1584 ml Laboratory Data 24H LABS Laboratory Tests 2 06/14/20 06:18: Immature Granulocyte % (Auto) 0.5, Neutrophils (%) (Auto) 62.8, Lymphocytes (%) (Auto) 23.2L, Monocytes (%) (Auto) 8.6H, Eosinophils (%) (Auto) 3.9H, Basophils (%) (Auto) 1.0, Neutrophils # (Auto) 3.7, Lymphocytes # (Auto) 1.4L, Monocytes # (Auto) 0.5, Eosinophils # (Auto) 0.2, Basophils # (Auto) 0.1, Nucleated Red Blood Cells % (auto) 0.0, Anion Gap 4L, Glomerular Filtration Rate > 60.0, Calcium Level 9.2, Total Bilirubin 0.7, Aspartate Amino Transf (AST/SGOT) 11, Alanine Aminotransferase (ALT/SGPT) 19, Alkaline Phosphatase 89, Total Protein 6.4, Albumin 2.8L, Albumin/Globulin Ratio 0.8 CBC/BMP Laboratory Tests 06/14/20 06:18 DENA MAYEN MD Jun 14, 2020 08:18
[2020-06-14 14:00] VITALS: BP 119/67
[2020-06-14 20:00] VITALS: BP 99/59
[2020-06-14] MEDS: SENNA 8.6 MG TAB (SENOKOT) PO SCH (20:44)
[2020-06-14] MEDS: PRAVASTATIN 20 MG TAB PO SCH (20:44)
[2020-06-15 05:22] VITALS: BP 116/74
[2020-06-15] MEDS: IPRATROPIUM 0.5MG/ALBUTEROL 2.5MG INH SOL UD 3ML (DUONEB) NEB SCH ×4 (07:25→20:08)
[2020-06-15] MEDS: PANTOPRAZOLE 40MG TAB (PROTONIX) PO SCH (08:34)
[2020-06-15] MEDS: LACTOBACILLUS ACIDOPHILUS CAP (BACID) PO SCH ×3 (08:34→21:13)
[2020-06-15] MEDS: DOCUSATE SODIUM 100MG CAPSULE PO SCH ×2 (08:34→21:12)
[2020-06-15] MEDS: levETIRAcetam 250MG TABLET (KEPPRA) PO SCH ×2 (08:34→21:12)
[2020-06-15] MEDS: FUROSEMIDE 40 MG TAB PO SCH (08:34)
[2020-06-15] MEDS: APIXABAN 5 MG TAB (ELIQUIS) PO SCH ×2 (08:34→21:13)
[2020-06-15] MEDS: TAMSULOSIN 0.4 MG CAP PO SCH (08:34)
[2020-06-15] MEDS: CEFDINIR 300 MG CAP (OMNICEF) PO SCH ×2 (08:34→21:13)
[2020-06-15] MEDS: atenoloL 25 MG TAB PO SCH (08:35)
[2020-06-15] MEDS: ACETAMINOPHEN 500 MG TAB PO SCH ×3 (08:35→21:12)
[2020-06-15] MEDS: REMEDY PHYTOPLEX Z-GUARD PASTE 113GM TUBE (FROM STOREROOM PRODUCT) TOP SCH ×3 (08:35→21:13)
[2020-06-15] MEDS: oxyCODONE 5MG TAB PO PRN (10:32)
[2020-06-15 14:00] VITALS: BP 116/67
[2020-06-15 20:00] VITALS: BP 105/66
[2020-06-15] MEDS: SENNA 8.6 MG TAB (SENOKOT) PO SCH (21:12)
[2020-06-15] MEDS: PRAVASTATIN 20 MG TAB PO SCH (21:13)
[2020-06-16 05:34] VITALS: BP 121/71
[2020-06-16 06:45] LABS: BASO # 0.1 10^3/uL (0.0-0.2); BASO % 1.3 % (0.0-1.0); EOS # 0.2 10^3/uL (0.0-0.5); EOS % 4.5 % (0.0-3.0); HEMOGLOBIN 12.2 g/dl (13.5-17.5); LYMPH # 1.2 10^3/uL (1.5-5.0); LYMPH % 21.7 % (24.0-44.0); MEAN CORPUSCULAR HGB CONC 32.1 g/dl (32.0-36.5); MEAN CORPUSCULAR VOLUME 93.6 fl (80.0-96.0); MONO # 0.5 10^3/uL (0.0-0.8); MONO % 8.9 % (2.0-8.0); NEUTROPHILS # 3.3 10^3/uL (1.5-8.5); NEUTROPHILS % 62.8 % (36.0-66.0); PLATELET COUNT, AUTOMATED 186 10^3/uL (150-450); RED BLOOD COUNT 4.06 10^6/uL (4.30-6.10); WHITE BLOOD COUNT 5.3 10^3/uL (4.0-10.0)
[2020-06-16 07:02] LABS: BLOOD UREA NITROGEN 44 MG/DL (7-18); CALCIUM LEVEL 8.8 MG/DL (8.8-10.2); CARBON DIOXIDE LEVEL 29 MEQ/L (21-32); CHLORIDE LEVEL 107 MEQ/L (98-107); CREATININE FOR GFR 1.05 MG/DL (0.70-1.30); GLOMERULAR FILTRATION RATE > 60.0 (>35); GLUCOSE, FASTING 106 MG/DL (70-100); POTASSIUM SERUM 4.1 MEQ/L (3.5-5.1); SODIUM LEVEL 141 MEQ/L (136-145)
[2020-06-16] MEDS: IPRATROPIUM 0.5MG/ALBUTEROL 2.5MG INH SOL UD 3ML (DUONEB) NEB SCH ×4 (07:25→20:15)
[2020-06-16] MEDS: atenoloL 25 MG TAB PO SCH (09:00)
[2020-06-16] MEDS: ACETAMINOPHEN 500 MG TAB PO SCH ×3 (09:48→21:03)
[2020-06-16] MEDS: FUROSEMIDE 40 MG TAB PO SCH (09:49)
[2020-06-16] MEDS: levETIRAcetam 250MG TABLET (KEPPRA) PO SCH ×2 (09:49→21:02)
[2020-06-16] MEDS: CEFDINIR 300 MG CAP (OMNICEF) PO SCH ×2 (09:49→21:02)
[2020-06-16] MEDS: PANTOPRAZOLE 40MG TAB (PROTONIX) PO SCH (09:49)
[2020-06-16] MEDS: TAMSULOSIN 0.4 MG CAP PO SCH (09:49)
[2020-06-16] MEDS: APIXABAN 5 MG TAB (ELIQUIS) PO SCH ×2 (09:49→21:03)
[2020-06-16] MEDS: LACTOBACILLUS ACIDOPHILUS CAP (BACID) PO SCH ×3 (09:49→21:02)
[2020-06-16] MEDS: DOCUSATE SODIUM 100MG CAPSULE PO SCH ×2 (09:49→21:02)
[2020-06-16] MEDS: REMEDY PHYTOPLEX Z-GUARD PASTE 113GM TUBE (FROM STOREROOM PRODUCT) TOP SCH ×3 (09:50→21:04)
[2020-06-16 14:00] VITALS: BP 115/71
[2020-06-16 20:00] VITALS: BP 115/68
[2020-06-16] MEDS: SENNA 8.6 MG TAB (SENOKOT) PO SCH (21:02)
[2020-06-16] MEDS: PRAVASTATIN 20 MG TAB PO SCH (21:03)
[2020-06-17 06:17] VITALS: BP 133/78
[2020-06-17] MEDS: IPRATROPIUM 0.5MG/ALBUTEROL 2.5MG INH SOL UD 3ML (DUONEB) NEB SCH ×4 (07:25→20:15)
[2020-06-17] MEDS: ACETAMINOPHEN 500 MG TAB PO SCH ×3 (08:54→21:50)
[2020-06-17] MEDS: PANTOPRAZOLE 40MG TAB (PROTONIX) PO SCH (08:54)
[2020-06-17] MEDS: APIXABAN 5 MG TAB (ELIQUIS) PO SCH ×2 (08:55→21:49)
[2020-06-17] MEDS: TAMSULOSIN 0.4 MG CAP PO SCH (08:55)
[2020-06-17] MEDS: DOCUSATE SODIUM 100MG CAPSULE PO SCH ×2 (08:55→21:49)
[2020-06-17] MEDS: CEFDINIR 300 MG CAP (OMNICEF) PO SCH ×2 (08:55→21:49)
[2020-06-17] MEDS: LACTOBACILLUS ACIDOPHILUS CAP (BACID) PO SCH ×3 (08:55→21:50)
[2020-06-17] MEDS: atenoloL 25 MG TAB PO SCH (08:55)
[2020-06-17] MEDS: FUROSEMIDE 40 MG TAB PO SCH (08:55)
[2020-06-17] MEDS: levETIRAcetam 250MG TABLET (KEPPRA) PO SCH ×2 (08:56→21:49)
[2020-06-17] MEDS: REMEDY PHYTOPLEX Z-GUARD PASTE 113GM TUBE (FROM STOREROOM PRODUCT) TOP SCH ×3 (08:58→21:50)
[2020-06-17 14:00] VITALS: BP 124/79
[2020-06-17 20:00] VITALS: BP 116/68
[2020-06-17] MEDS: PRAVASTATIN 20 MG TAB PO SCH (21:49)
[2020-06-17] MEDS: SENNA 8.6 MG TAB (SENOKOT) PO SCH (21:50)
[2020-06-18 05:49] VITALS: BP 123/72
[2020-06-18] MEDS: IPRATROPIUM 0.5MG/ALBUTEROL 2.5MG INH SOL UD 3ML (DUONEB) NEB SCH ×4 (07:13→20:31)
[2020-06-18] MEDS: ACETAMINOPHEN 500 MG TAB PO SCH ×3 (08:47→20:25)
[2020-06-18] MEDS: CEFDINIR 300 MG CAP (OMNICEF) PO SCH ×2 (08:47→20:25)
[2020-06-18] MEDS: PANTOPRAZOLE 40MG TAB (PROTONIX) PO SCH (08:47)
[2020-06-18] MEDS: LACTOBACILLUS ACIDOPHILUS CAP (BACID) PO SCH ×3 (08:47→20:24)
[2020-06-18] MEDS: APIXABAN 5 MG TAB (ELIQUIS) PO SCH ×2 (08:48→20:24)
[2020-06-18] MEDS: TAMSULOSIN 0.4 MG CAP PO SCH (08:48)
[2020-06-18] MEDS: levETIRAcetam 250MG TABLET (KEPPRA) PO SCH ×2 (08:48→20:24)
[2020-06-18] MEDS: DOCUSATE SODIUM 100MG CAPSULE PO SCH ×2 (08:48→19:58)
[2020-06-18] MEDS: FUROSEMIDE 40 MG TAB PO SCH (08:48)
[2020-06-18] MEDS: atenoloL 25 MG TAB PO SCH (08:49)
[2020-06-18] MEDS: REMEDY PHYTOPLEX Z-GUARD PASTE 113GM TUBE (FROM STOREROOM PRODUCT) TOP SCH ×3 (08:49→20:25)
[2020-06-18 14:00] VITALS: BP 113/69
[2020-06-18] MEDS: SENNA 8.6 MG TAB (SENOKOT) PO SCH (19:58)
[2020-06-18 20:00] VITALS: BP 104/62
[2020-06-18] MEDS: PRAVASTATIN 20 MG TAB PO SCH (20:25)
[2020-06-19 06:00] VITALS: BP 104/64
[2020-06-19] MEDS: IPRATROPIUM 0.5MG/ALBUTEROL 2.5MG INH SOL UD 3ML (DUONEB) NEB SCH ×4 (07:17→19:59)
[2020-06-19 07:39] LABS: BASO # 0.1 10^3/uL (0.0-0.2); BASO % 0.9 % (0.0-1.0); EOS # 0.2 10^3/uL (0.0-0.5); EOS % 4.2 % (0.0-3.0); HEMATOCRIT 40.9 % (42.0-52.0); HEMOGLOBIN 12.9 g/dl (13.5-17.5); LYMPH # 1.2 10^3/uL (1.5-5.0); LYMPH % 21.8 % (24.0-44.0); MEAN CORPUSCULAR HEMOGLOBIN 29.9 pg (27.0-33.0); MEAN CORPUSCULAR HGB CONC 31.5 g/dl (32.0-36.5); MEAN CORPUSCULAR VOLUME 94.9 fl (80.0-96.0); MONO # 0.4 10^3/uL (0.0-0.8); MONO % 7.1 % (2.0-8.0); NEUTROPHILS # 3.6 10^3/uL (1.5-8.5); NEUTROPHILS % 65.3 % (36.0-66.0); PLATELET COUNT, AUTOMATED 190 10^3/uL (150-450); RED BLOOD COUNT 4.31 10^6/uL (4.30-6.10); WHITE BLOOD COUNT 5.5 10^3/uL (4.0-10.0)
[2020-06-19 08:02] LABS: BLOOD UREA NITROGEN 36 MG/DL (7-18); CALCIUM LEVEL 8.9 MG/DL (8.8-10.2); CARBON DIOXIDE LEVEL 29 MEQ/L (21-32); CHLORIDE LEVEL 107 MEQ/L (98-107); CREATININE FOR GFR 1.17 MG/DL (0.70-1.30); GLOMERULAR FILTRATION RATE > 60.0 (>35); GLUCOSE, FASTING 101 MG/DL (70-100); POTASSIUM SERUM 4.2 MEQ/L (3.5-5.1); SODIUM LEVEL 140 MEQ/L (136-145)
[2020-06-19] MEDS: APIXABAN 5 MG TAB (ELIQUIS) PO SCH ×2 (09:29→21:46)
[2020-06-19] MEDS: levETIRAcetam 250MG TABLET (KEPPRA) PO SCH ×2 (09:29→21:47)
[2020-06-19] MEDS: DOCUSATE SODIUM 100MG CAPSULE PO SCH ×2 (09:29→21:47)
[2020-06-19] MEDS: CEFDINIR 300 MG CAP (OMNICEF) PO SCH ×2 (09:29→21:46)
[2020-06-19] MEDS: FUROSEMIDE 40 MG TAB PO SCH (09:29)
[2020-06-19] MEDS: ACETAMINOPHEN 500 MG TAB PO SCH ×3 (09:29→21:47)
[2020-06-19] MEDS: atenoloL 25 MG TAB PO SCH (09:29)
[2020-06-19] MEDS: PANTOPRAZOLE 40MG TAB (PROTONIX) PO SCH (09:29)
[2020-06-19] MEDS: TAMSULOSIN 0.4 MG CAP PO SCH (09:29)
[2020-06-19] MEDS: LACTOBACILLUS ACIDOPHILUS CAP (BACID) PO SCH ×3 (09:30→21:47)
[2020-06-19] MEDS: REMEDY PHYTOPLEX Z-GUARD PASTE 113GM TUBE (FROM STOREROOM PRODUCT) TOP SCH ×3 (09:30→21:00)
--- NOTE | 2020-06-19 11:51 | IPNPDOC ---
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 He reports a mild cough after getting breathing treatments, but declines taking any cough medication. REVIEW OF SYSTEMS: The following is a completed review of systems and has been reviewed. Review of systems otherwise unremarkable. PAIN: Patient self reports right pelvic pain with movement EYES: No recent vision changes EARS, NOSE, & THROAT: No throat pain, or dysphagia, or rhinorrhea CARDIOVASCULAR: Denies chest pain or palpitations PULMONARY: Denies shortness of breath GASTROINTESTINAL: Denies constipation/diarrhea, +colostomy GENITOURINARY: denies dysuria MUSCULOSKELETAL: right sided weakness NEUROLOGICAL:+ paresthesias HEMATOLOGICAL: denies easy bruising SKIN: RLE chronic wound PSYCHIATRIC: Unremarkable All other review of systems found to be negative. PHYSICAL EXAMINATION: VITAL SIGNS: Please see below. GENERAL: Pleasant and cooperative. No acute distress. HEENT: PERRL. Extraocular movements intact. Clear conjunctiva CARDIOVASCULAR: Irregular rate and rhythm. No murmurs, rubs, or gallops LUNGS: Clear to auscultation bilaterally. No wheezes. No rhonchi ABDOMEN: Soft, nontender, nondistended. Positive bowel sounds. Normal active bowel sounds]. NEUROLOGICAL: Alert and oriented times three. Cranial nerves II through XII grossly intact. Sensation decreased in stocking pattern EXTREMITIES: 5\5 strength bilateral upper extremities. 4\5 strength right lower extremity (limited due to pain). 5/5 strength in left lower extremity. SKIN: Right anterior calf with dry ulcer, sacrum with stage 1 pressure ulcer ASSESSMENT: 85-year-old M with past medical history of HTN, diastolic CHF, COPD who presents status post fall with pelvic fracture PLAN: 1. Rehab- PT/OT advance mobility and ADLs, strengthen/stretch/maintain ROM all 4 limbs 2. Neuro- peripheral polyneuropathy due to DM contributing to overall functional impairments and increased risk of falls -seizures disorder- on keppra 3. ortho- right pubis and right inferior pubic ramus fracture, WBAT- f/u ortho on d/c 4. CArdiac- hx of AFib with PM, c/u eliquis and atenolol -hld- c/u statin -chronic diastolic CHF c/u lasix, daily weights, fluid restrict -medicine consulted to assist in overall management 5. Resp- hx of COPD not on 02, DUonebs, monitor for infection -LIANNA not on CPAP 6. Endo- hx of DM diet controlled 7. Pain- tylenol and oxycodone 8. DVT ppx- on full dose eliquis 9. GI ppx- protonix 10. - c/u cefdinir for suspected UTI, monitor PVRs 11. Dispo- tbd Allergies Coded Allergies: No Known Allergies (Unverified , 05/20/19) Vital Signs Vital Signs Date Time Temp Pulse Resp B/P (MAP) Pulse Ox O2 Delivery O2 Flow Rate FiO2 06/19/20 09:29 63 104/64 06/19/20 06:00 97.9 19 98 Room Air Laboratory Data CBC/BMP Laboratory Tests 06/19/20 07:08 Labs 24H Laboratory Tests 2 06/19/20 07:08: Immature Granulocyte % (Auto) 0.7, Neutrophils (%) (Auto) 65.3, Lymphocytes (%) (Auto) 21.8L, Monocytes (%) (Auto) 7.1, Eosinophils (%) (Auto) 4.2H, Basophils (%) (Auto) 0.9, Neutrophils # (Auto) 3.6, Lymphocytes # (Auto) 1.2L, Monocytes # (Auto) 0.4, Eosinophils # (Auto) 0.2, Basophils # (Auto) 0.1, Nucleated Red Blood Cells % (auto) 0.0, Anion Gap 4L, Glomerular Filtration Rate > 60.0, Calcium Level 8.9 Current Medications Current Medications Current Medications Medications (Trade) Dose Ordered Sig/Yao Route PRN Reason Start Time Stop Time Status Last Admin Dose Admin Acetaminophen (Tylenol Tab) 1,000 mg TID PO 06/13/20 21:00 06/19/20 09:29 Albuterol/ Ipratropium (Duoneb (Ipr 0.5mg/Alb 2.5mg)) 3 ml RQID NEB 06/13/20 20:00 06/19/20 11:17 Apixaban (Eliquis) 5 mg BID PO 06/13/20 21:00 06/19/20 09:29 Atenolol (Tenormin) 25 mg DAILY PO 06/14/20 09:00 06/19/20 09:29 Cefdinir (Omnicef) 300 mg BID PO 06/13/20 21:00 06/19/20 21:01 06/19/20 09:29 Docusate Sodium (Colace) 100 mg BID PO 06/13/20 21:00 06/19/20 09:29 Furosemide (Lasix) 40 mg DAILY PO 06/14/20 09:00 06/19/20 09:29 Home Med (Med Rec Complete!) ASDIRECTED XX 06/13/20 23:50 06/14/20 00:24 DC Lactobacillus Acidophilus (Bacid) 1 ea TID PO 06/13/20 21:00 06/19/20 09:30 Levetiracetam (Keppra) 750 mg BID PO 06/13/20 21:00 06/19/20 09:29 Oxycodone HCl (Roxicodone, Oxyir) 5 mg Q4HP PRN PO PAIN 06/13/20 16:10 06/15/20 10:32 Pantoprazole Sodium (Protonix) 40 mg DAILY PO 06/14/20 09:00 06/19/20 09:29 Polyethylene Glycol (Miralax) 1 pkt DAILY PRN PO CONSTIPATION 06/13/20 16:10 Pravastatin Sodium (Pravachol) 40 mg QHS PO 06/13/20 21:00 06/18/20 20:25 Senna (Senokot) 1 tab QHS PO 06/13/20 21:00 06/17/20 21:50 Tamsulosin HCl (Flomax) 0.4 mg DAILY PO 06/14/20 09:00 06/19/20 09:29 NATA VANESSA MD Jun 19, 2020 11:51
--- NOTE | 2020-06-19 11:55 | IPNPDOC ---
PM&R Progress Note DATE OF SERVICE: Jun 19, 2020 Jailer Chief Progress Note subjective: Patient reports no cough, no trouble breathing. He states he wants to do therapy his own way, but is willing to compromise. REVIEW OF SYSTEMS: The following is a completed review of systems and has been reviewed. Review of systems otherwise unremarkable. PAIN: Patient self reports right pelvic pain with movement EYES: No recent vision changes EARS, NOSE, & THROAT: No throat pain, or dysphagia, or rhinorrhea CARDIOVASCULAR: Denies chest pain or palpitations PULMONARY: Denies shortness of breath GASTROINTESTINAL: Denies constipation/diarrhea, +colostomy GENITOURINARY: denies dysuria MUSCULOSKELETAL: right sided weakness NEUROLOGICAL:+ paresthesias HEMATOLOGICAL: denies easy bruising SKIN: RLE chronic wound PSYCHIATRIC: Unremarkable All other review of systems found to be negative. PHYSICAL EXAMINATION: VITAL SIGNS: Please see below. GENERAL: Pleasant and cooperative. No acute distress. HEENT: PERRL. Extraocular movements intact. Clear conjunctiva CARDIOVASCULAR: Irregular rate and rhythm. No murmurs, rubs, or gallops LUNGS: Clear to auscultation bilaterally. No wheezes. No rhonchi ABDOMEN: Soft, nontender, nondistended. Positive bowel sounds. Normal active bowel sounds]. NEUROLOGICAL: Alert and oriented times three. Cranial nerves II through XII grossly intact. Sensation decreased in stocking pattern EXTREMITIES: 5\5 strength bilateral upper extremities. 4\5 strength right lower extremity (limited due to pain). 5/5 strength in left lower extremity. SKIN: Right anterior calf with dry ulcer, sacrum with stage 1 pressure ulcer ASSESSMENT: 85-year-old M with past medical history of HTN, diastolic CHF, COPD who presents status post fall with pelvic fracture PLAN: 1. Rehab- PT/OT advance mobility and ADLs, strengthen/stretch/maintain ROM all 4 limbs 2. Neuro- peripheral polyneuropathy due to DM contributing to overall functional impairments and increased risk of falls -seizures disorder- on keppra 3. ortho- right pubis and right inferior pubic ramus fracture, WBAT- f/u ortho on d/c 4. CArdiac- hx of AFib with PM, c/u eliquis and atenolol -hld- c/u statin -chronic diastolic CHF c/u lasix, daily weights, fluid restrict -medicine consulted to assist in overall management 5. Resp- hx of COPD not on 02, DUonebs, monitor for infection -LIANNA not on CPAP 6. Endo- hx of DM diet controlled 7. Pain- tylenol and oxycodone 8. DVT ppx- on full dose eliquis 9. GI ppx- protonix 10. - c/u cefdinir for suspected UTI, monitor PVRs 11. Dispo- tbd Allergies Coded Allergies: No Known Allergies (Unverified , 05/20/19) Vital Signs Vital Signs Date Time Temp Pulse Resp B/P (MAP) Pulse Ox O2 Delivery O2 Flow Rate FiO2 06/19/20 09:29 63 104/64 06/19/20 06:00 97.9 19 98 Room Air Laboratory Data CBC/BMP Laboratory Tests 06/19/20 07:08 Labs 24H Laboratory Tests 2 06/19/20 07:08: Immature Granulocyte % (Auto) 0.7, Neutrophils (%) (Auto) 65.3, Lymphocytes (%) (Auto) 21.8L, Monocytes (%) (Auto) 7.1, Eosinophils (%) (Auto) 4.2H, Basophils (%) (Auto) 0.9, Neutrophils # (Auto) 3.6, Lymphocytes # (Auto) 1.2L, Monocytes # (Auto) 0.4, Eosinophils # (Auto) 0.2, Basophils # (Auto) 0.1, Nucleated Red Blood Cells % (auto) 0.0, Anion Gap 4L, Glomerular Filtration Rate > 60.0, Calcium Level 8.9 Current Medications Current Medications Current Medications Medications (Trade) Dose Ordered Sig/Yao Route PRN Reason Start Time Stop Time Status Last Admin Dose Admin Acetaminophen (Tylenol Tab) 1,000 mg TID PO 06/13/20 21:00 06/19/20 09:29 Albuterol/ Ipratropium (Duoneb (Ipr 0.5mg/Alb 2.5mg)) 3 ml RQID NEB 06/13/20 20:00 06/19/20 11:17 Apixaban (Eliquis) 5 mg BID PO 06/13/20 21:00 06/19/20 09:29 Atenolol (Tenormin) 25 mg DAILY PO 06/14/20 09:00 06/19/20 09:29 Cefdinir (Omnicef) 300 mg BID PO 06/13/20 21:00 06/19/20 21:01 06/19/20 09:29 Docusate Sodium (Colace) 100 mg BID PO 06/13/20 21:00 06/19/20 09:29 Furosemide (Lasix) 40 mg DAILY PO 06/14/20 09:00 06/19/20 09:29 Home Med (Med Rec Complete!) ASDIRECTED XX 06/13/20 23:50 06/14/20 00:24 DC Lactobacillus Acidophilus (Bacid) 1 ea TID PO 06/13/20 21:00 06/19/20 09:30 Levetiracetam (Keppra) 750 mg BID PO 06/13/20 21:00 06/19/20 09:29 Oxycodone HCl (Roxicodone, Oxyir) 5 mg Q4HP PRN PO PAIN 06/13/20 16:10 06/15/20 10:32 Pantoprazole Sodium (Protonix) 40 mg DAILY PO 06/14/20 09:00 06/19/20 09:29 Polyethylene Glycol (Miralax) 1 pkt DAILY PRN PO CONSTIPATION 06/13/20 16:10 Pravastatin Sodium (Pravachol) 40 mg QHS PO 06/13/20 21:00 06/18/20 20:25 Senna (Senokot) 1 tab QHS PO 06/13/20 21:00 06/17/20 21:50 Tamsulosin HCl (Flomax) 0.4 mg DAILY PO 06/14/20 09:00 06/19/20 09:29 NATA VANESSA MD Jun 19, 2020 11:55
[2020-06-19 20:00] VITALS: BP 104/64
[2020-06-19] MEDS: SENNA 8.6 MG TAB (SENOKOT) PO SCH (21:47)
[2020-06-19] MEDS: PRAVASTATIN 20 MG TAB PO SCH (21:47)
[2020-06-20 06:00] VITALS: BP 112/69
[2020-06-20] MEDS: IPRATROPIUM 0.5MG/ALBUTEROL 2.5MG INH SOL UD 3ML (DUONEB) NEB SCH ×4 (07:14→19:56)
[2020-06-20] MEDS: levETIRAcetam 250MG TABLET (KEPPRA) PO SCH ×2 (07:57→20:31)
[2020-06-20] MEDS: PANTOPRAZOLE 40MG TAB (PROTONIX) PO SCH (07:58)
[2020-06-20] MEDS: DOCUSATE SODIUM 100MG CAPSULE PO SCH ×2 (07:58→20:32)
[2020-06-20] MEDS: FUROSEMIDE 40 MG TAB PO SCH (07:58)
[2020-06-20] MEDS: APIXABAN 5 MG TAB (ELIQUIS) PO SCH ×2 (07:58→20:31)
[2020-06-20] MEDS: TAMSULOSIN 0.4 MG CAP PO SCH (07:58)
[2020-06-20] MEDS: LACTOBACILLUS ACIDOPHILUS CAP (BACID) PO SCH ×3 (07:58→20:31)
[2020-06-20] MEDS: ACETAMINOPHEN 500 MG TAB PO SCH ×3 (07:59→20:31)
[2020-06-20] MEDS: atenoloL 25 MG TAB PO SCH (08:02)
[2020-06-20] MEDS: REMEDY PHYTOPLEX Z-GUARD PASTE 113GM TUBE (FROM STOREROOM PRODUCT) TOP SCH ×3 (08:03→20:32)
[2020-06-20 14:00] VITALS: BP 140/84
[2020-06-20 20:00] VITALS: BP 118/73
[2020-06-20] MEDS: SENNA 8.6 MG TAB (SENOKOT) PO SCH (20:31)
[2020-06-20] MEDS: PRAVASTATIN 20 MG TAB PO SCH (20:31)
[2020-06-21 06:00] VITALS: BP 146/73
[2020-06-21] MEDS: IPRATROPIUM 0.5MG/ALBUTEROL 2.5MG INH SOL UD 3ML (DUONEB) NEB SCH ×4 (07:24→20:40)
[2020-06-21 08:20] LABS: BASO # 0.1 10^3/uL (0.0-0.2); EOS # 0.3 10^3/uL (0.0-0.5); HEMATOCRIT 41.1 % (42.0-52.0); HEMOGLOBIN 13.5 g/dl (13.5-17.5); LYMPH # 1.3 10^3/uL (1.5-5.0); MEAN CORPUSCULAR HEMOGLOBIN 31.1 pg (27.0-33.0); MEAN CORPUSCULAR HGB CONC 32.8 g/dl (32.0-36.5); MEAN CORPUSCULAR VOLUME 94.7 fl (80.0-96.0); MONO # 0.5 10^3/uL (0.0-0.8); MONO % 7.2 % (2.0-8.0); NEUTROPHILS # 4.2 10^3/uL (1.5-8.5); NEUTROPHILS % 66.3 % (36.0-66.0); PLATELET COUNT, AUTOMATED 204 10^3/uL (150-450); RED BLOOD COUNT 4.34 10^6/uL (4.30-6.10); WHITE BLOOD COUNT 6.3 10^3/uL (4.0-10.0)
[2020-06-21 08:47] LABS: BLOOD UREA NITROGEN 39 MG/DL (7-18); CALCIUM LEVEL 9.1 MG/DL (8.8-10.2); CARBON DIOXIDE LEVEL 28 MEQ/L (21-32); CHLORIDE LEVEL 106 MEQ/L (98-107); CREATININE FOR GFR 1.18 MG/DL (0.70-1.30); GLOMERULAR FILTRATION RATE > 60.0 (>35); GLUCOSE, FASTING 98 MG/DL (70-100); POTASSIUM SERUM 4.3 MEQ/L (3.5-5.1); SODIUM LEVEL 140 MEQ/L (136-145)
[2020-06-21] MEDS: atenoloL 25 MG TAB PO SCH (09:00)
[2020-06-21] MEDS: FUROSEMIDE 40 MG TAB PO SCH (09:00)
[2020-06-21] MEDS: REMEDY PHYTOPLEX Z-GUARD PASTE 113GM TUBE (FROM STOREROOM PRODUCT) TOP SCH ×3 (09:00→20:34)
[2020-06-21 09:31] VITALS: BP 101/62
[2020-06-21] MEDS: TAMSULOSIN 0.4 MG CAP PO SCH (09:32)
[2020-06-21] MEDS: PANTOPRAZOLE 40MG TAB (PROTONIX) PO SCH (09:32)
[2020-06-21] MEDS: levETIRAcetam 250MG TABLET (KEPPRA) PO SCH ×2 (09:33→20:32)
[2020-06-21] MEDS: ACETAMINOPHEN 500 MG TAB PO SCH ×3 (09:33→20:33)
[2020-06-21] MEDS: DOCUSATE SODIUM 100MG CAPSULE PO SCH ×2 (09:33→20:33)
[2020-06-21] MEDS: APIXABAN 5 MG TAB (ELIQUIS) PO SCH ×2 (09:33→20:33)
[2020-06-21] MEDS: LACTOBACILLUS ACIDOPHILUS CAP (BACID) PO SCH ×3 (09:33→20:32)
[2020-06-21] MEDS ORDERED: ESOM1CAP5 PO (12:05)
[2020-06-21] MEDS ORDERED: ATEN25TA PO (12:05)
[2020-06-21] MEDS ORDERED: LEVE750T5 PO (12:05)
[2020-06-21] MEDS ORDERED: FLOM0.4C39 PO (12:05)
[2020-06-21] MEDS ORDERED: FURO40TA2 PO (12:05)
[2020-06-21] MEDS ORDERED: RISATAB3 PO (12:05)
[2020-06-21] MEDS ORDERED: PRAV40TA2 PO (12:05)
[2020-06-21] MEDS ORDERED: ELIQ5TAB PO (12:05)
[2020-06-21 14:00] VITALS: BP 114/67
--- NOTE | 2020-06-21 19:40 | IPNPDOC ---
PM&R Progress Note DATE OF SERVICE: Jun 20, 2020 Floor Winder Progress Note subjective: Patient stating he feels well, that his right hip pain is bearable. REVIEW OF SYSTEMS: The following is a completed review of systems and has been reviewed. Review of systems otherwise unremarkable. PAIN: Patient self reports right pelvic pain with movement EYES: No recent vision changes EARS, NOSE, & THROAT: No throat pain, or dysphagia, or rhinorrhea CARDIOVASCULAR: Denies chest pain or palpitations PULMONARY: Denies shortness of breath GASTROINTESTINAL: Denies constipation/diarrhea, +colostomy GENITOURINARY: denies dysuria MUSCULOSKELETAL: right sided weakness NEUROLOGICAL:+ paresthesias HEMATOLOGICAL: denies easy bruising SKIN: RLE chronic wound PSYCHIATRIC: Unremarkable All other review of systems found to be negative. PHYSICAL EXAMINATION: VITAL SIGNS: Please see below. GENERAL: Pleasant and cooperative. No acute distress. HEENT: PERRL. Extraocular movements intact. Clear conjunctiva CARDIOVASCULAR: Irregular rate and rhythm. No murmurs, rubs, or gallops LUNGS: Clear to auscultation bilaterally. No wheezes. No rhonchi ABDOMEN: Soft, nontender, nondistended. Positive bowel sounds. Normal active bowel sounds]. NEUROLOGICAL: Alert and oriented times three. Cranial nerves II through XII grossly intact. Sensation decreased in stocking pattern EXTREMITIES: 5\5 strength bilateral upper extremities. 4\5 strength right lower extremity (limited due to pain). 5/5 strength in left lower extremity. SKIN: Right anterior calf with dry ulcer, sacrum with stage 1 pressure ulcer ASSESSMENT: 85-year-old M with past medical history of HTN, diastolic CHF, COPD who presents status post fall with pelvic fracture PLAN: 1. Rehab- PT/OT advance mobility and ADLs, strengthen/stretch/maintain ROM all 4 limbs-ambulating well, room privileges 2. Neuro- peripheral polyneuropathy due to DM contributing to overall functional impairments and increased risk of falls -seizures disorder- on keppra 3. ortho- right pubis and right inferior pubic ramus fracture, WBAT- f/u ortho on d/c 4. CArdiac- hx of AFib with PM, c/u eliquis and atenolol -hld- c/u statin -chronic diastolic CHF c/u lasix, daily weights, fluid restrict -medicine consulted to assist in overall management 5. Resp- hx of COPD not on 02, DUonebs, monitor for infection -LIANNA not on CPAP 6. Endo- hx of DM diet controlled 7. Pain- tylenol and oxycodone 8. DVT ppx- on full dose eliquis 9. GI ppx- protonix 10. - s/p course of cefdinir for suspected UTI, voiding well 11. Dispo- 06-23-20 Allergies Coded Allergies: No Known Allergies (Unverified , 05/20/19) Vital Signs Vital Signs Date Time Temp Pulse Resp B/P (MAP) Pulse Ox O2 Delivery O2 Flow Rate FiO2 06/21/20 14:00 97.8 67 18 114/67 (83) 96 Room Air 06/20/20 20:30 2.0 Laboratory Data CBC/BMP Laboratory Tests 06/21/20 06:25 Labs 24H Laboratory Tests 2 06/21/20 06:25: Immature Granulocyte % (Auto) 0.5, Neutrophils (%) (Auto) 66.3H, Lymphocytes (%) (Auto) 21.0L, Monocytes (%) (Auto) 7.2, Eosinophils (%) (Auto) 4.0H, Basophils (%) (Auto) 1.0, Neutrophils # (Auto) 4.2, Lymphocytes # (Auto) 1.3L, Monocytes # (Auto) 0.5, Eosinophils # (Auto) 0.3, Basophils # (Auto) 0.1, Nucleated Red Blood Cells % (auto) 0.0, Anion Gap 6L, Glomerular Filtration Rate > 60.0, Calcium Level 9.1 Current Medications Current Medications Current Medications Medications (Trade) Dose Ordered Sig/Yao Route PRN Reason Start Time Stop Time Status Last Admin Dose Admin Acetaminophen (Tylenol Tab) 1,000 mg TID PO 06/13/20 21:00 06/21/20 15:09 Albuterol/ Ipratropium (Duoneb (Ipr 0.5mg/Alb 2.5mg)) 3 ml RQID NEB 06/13/20 20:00 06/21/20 15:24 Apixaban (Eliquis) 5 mg BID PO 06/13/20 21:00 06/21/20 09:33 Atenolol (Tenormin) 25 mg DAILY PO 06/14/20 09:00 06/20/20 08:02 Cefdinir (Omnicef) 300 mg BID PO 06/13/20 21:00 06/19/20 21:01 DC 06/19/20 21:46 Docusate Sodium (Colace) 100 mg BID PO 06/13/20 21:00 06/21/20 09:33 Furosemide (Lasix) 40 mg DAILY PO 06/14/20 09:00 06/20/20 07:58 Home Med (Med Rec Complete!) ASDIRECTED XX 06/13/20 23:50 06/14/20 00:24 DC Lactobacillus Acidophilus (Bacid) 1 ea TID PO 06/13/20 21:00 06/21/20 15:09 Levetiracetam (Keppra) 750 mg BID PO 06/13/20 21:00 06/21/20 09:33 Oxycodone HCl (Roxicodone, Oxyir) 5 mg Q4HP PRN PO PAIN 06/13/20 16:10 06/15/20 10:32 Pantoprazole Sodium (Protonix) 40 mg DAILY PO 06/14/20 09:00 06/21/20 09:32 Polyethylene Glycol (Miralax) 1 pkt DAILY PRN PO CONSTIPATION 06/13/20 16:10 Pravastatin Sodium (Pravachol) 40 mg QHS PO 06/13/20 21:00 06/20/20 20:31 Senna (Senokot) 1 tab QHS PO 06/13/20 21:00 06/20/20 20:31 Tamsulosin HCl (Flomax) 0.4 mg DAILY PO 06/14/20 09:00 06/21/20 09:32 NATA VANESSA MD Jun 21, 2020 19:40
--- NOTE | 2020-06-21 19:41 | IPNPDOC ---
PM&R Progress Note DATE OF SERVICE: Jun 21, 2020 Entertainment Musician Progress Note subjective: Patient seen in therapy stating he did well with room privileges overnight and feels ready to go home tomorrow. REVIEW OF SYSTEMS: The following is a completed review of systems and has been reviewed. Review of systems otherwise unremarkable. PAIN: Patient self reports right pelvic pain with movement EYES: No recent vision changes EARS, NOSE, & THROAT: No throat pain, or dysphagia, or rhinorrhea CARDIOVASCULAR: Denies chest pain or palpitations PULMONARY: Denies shortness of breath GASTROINTESTINAL: Denies constipation/diarrhea, +colostomy GENITOURINARY: denies dysuria MUSCULOSKELETAL: right sided weakness NEUROLOGICAL:+ paresthesias HEMATOLOGICAL: denies easy bruising SKIN: RLE chronic wound PSYCHIATRIC: Unremarkable All other review of systems found to be negative. PHYSICAL EXAMINATION: VITAL SIGNS: Please see below. GENERAL: Pleasant and cooperative. No acute distress. HEENT: PERRL. Extraocular movements intact. Clear conjunctiva CARDIOVASCULAR: Irregular rate and rhythm. No murmurs, rubs, or gallops LUNGS: Clear to auscultation bilaterally. No wheezes. No rhonchi ABDOMEN: Soft, nontender, nondistended. Positive bowel sounds. Normal active bowel sounds]. NEUROLOGICAL: Alert and oriented times three. Cranial nerves II through XII grossly intact. Sensation decreased in stocking pattern EXTREMITIES: 5\5 strength bilateral upper extremities. 4\5 strength right lower extremity (limited due to pain). 5/5 strength in left lower extremity. SKIN: Right anterior calf with dry ulcer, sacrum with stage 1 pressure ulcer ASSESSMENT: 85-year-old M with past medical history of HTN, diastolic CHF, COPD who presents status post fall with pelvic fracture PLAN: 1. Rehab- PT/OT advance mobility and ADLs, strengthen/stretch/maintain ROM all 4 limbs-ambulating well, room privileges 2. Neuro- peripheral polyneuropathy due to DM contributing to overall functional impairments and increased risk of falls -seizures disorder- on keppra 3. ortho- right pubis and right inferior pubic ramus fracture, WBAT- f/u ortho on d/c 4. CArdiac- hx of AFib with PM, c/u eliquis and atenolol -hld- c/u statin -chronic diastolic CHF c/u lasix, daily weights, fluid restrict -medicine consulted to assist in overall management 5. Resp- hx of COPD not on 02, DUonebs, monitor for infection -LIANNA not on CPAP 6. Endo- hx of DM diet controlled 7. Pain- tylenol and oxycodone 8. DVT ppx- on full dose eliquis 9. GI ppx- protonix 10. - s/p course of cefdinir for suspected UTI, voiding well 11. Dispo- 06-22-20 to home, progressing towards goals Allergies Coded Allergies: No Known Allergies (Unverified , 05/20/19) Vital Signs Vital Signs Date Time Temp Pulse Resp B/P (MAP) Pulse Ox O2 Delivery O2 Flow Rate FiO2 06/21/20 14:00 97.8 67 18 114/67 (83) 96 Room Air 06/20/20 20:30 2.0 Laboratory Data CBC/BMP Laboratory Tests 06/21/20 06:25 Labs 24H Laboratory Tests 2 06/21/20 06:25: Immature Granulocyte % (Auto) 0.5, Neutrophils (%) (Auto) 66.3H, Lymphocytes (%) (Auto) 21.0L, Monocytes (%) (Auto) 7.2, Eosinophils (%) (Auto) 4.0H, Basophils (%) (Auto) 1.0, Neutrophils # (Auto) 4.2, Lymphocytes # (Auto) 1.3L, Monocytes # (Auto) 0.5, Eosinophils # (Auto) 0.3, Basophils # (Auto) 0.1, Nucleated Red Blood Cells % (auto) 0.0, Anion Gap 6L, Glomerular Filtration Rate > 60.0, Calcium Level 9.1 Current Medications Current Medications Current Medications Medications (Trade) Dose Ordered Sig/Yao Route PRN Reason Start Time Stop Time Status Last Admin Dose Admin Acetaminophen (Tylenol Tab) 1,000 mg TID PO 06/13/20 21:00 06/21/20 15:09 Albuterol/ Ipratropium (Duoneb (Ipr 0.5mg/Alb 2.5mg)) 3 ml RQID NEB 06/13/20 20:00 06/21/20 15:24 Apixaban (Eliquis) 5 mg BID PO 06/13/20 21:00 06/21/20 09:33 Atenolol (Tenormin) 25 mg DAILY PO 06/14/20 09:00 06/20/20 08:02 Cefdinir (Omnicef) 300 mg BID PO 06/13/20 21:00 06/19/20 21:01 DC 06/19/20 21:46 Docusate Sodium (Colace) 100 mg BID PO 06/13/20 21:00 06/21/20 09:33 Furosemide (Lasix) 40 mg DAILY PO 06/14/20 09:00 06/20/20 07:58 Home Med (Med Rec Complete!) ASDIRECTED XX 06/13/20 23:50 06/14/20 00:24 DC Lactobacillus Acidophilus (Bacid) 1 ea TID PO 06/13/20 21:00 06/21/20 15:09 Levetiracetam (Keppra) 750 mg BID PO 06/13/20 21:00 06/21/20 09:33 Oxycodone HCl (Roxicodone, Oxyir) 5 mg Q4HP PRN PO PAIN 06/13/20 16:10 06/15/20 10:32 Pantoprazole Sodium (Protonix) 40 mg DAILY PO 06/14/20 09:00 06/21/20 09:32 Polyethylene Glycol (Miralax) 1 pkt DAILY PRN PO CONSTIPATION 06/13/20 16:10 Pravastatin Sodium (Pravachol) 40 mg QHS PO 06/13/20 21:00 06/20/20 20:31 Senna (Senokot) 1 tab QHS PO 06/13/20 21:00 06/20/20 20:31 Tamsulosin HCl (Flomax) 0.4 mg DAILY PO 06/14/20 09:00 06/21/20 09:32 NATA VANESSA MD Jun 21, 2020 19:41
[2020-06-21 20:00] VITALS: BP 110/57
[2020-06-21] MEDS: PRAVASTATIN 20 MG TAB PO SCH (20:33)
[2020-06-21] MEDS: SENNA 8.6 MG TAB (SENOKOT) PO SCH (20:33)
[2020-06-22] MEDS: IPRATROPIUM 0.5MG/ALBUTEROL 2.5MG INH SOL UD 3ML (DUONEB) NEB SCH (07:16)
[2020-06-22 09:00] VITALS: BP 108/70
[2020-06-22] MEDS: REMEDY PHYTOPLEX Z-GUARD PASTE 113GM TUBE (FROM STOREROOM PRODUCT) TOP SCH (09:00)
[2020-06-22] MEDS: atenoloL 25 MG TAB PO SCH (09:00)
[2020-06-22] MEDS: FUROSEMIDE 40 MG TAB PO SCH (09:00)
[2020-06-22] MEDS: PANTOPRAZOLE 40MG TAB (PROTONIX) PO SCH (09:42)
[2020-06-22] MEDS: APIXABAN 5 MG TAB (ELIQUIS) PO SCH (09:42)
[2020-06-22] MEDS: DOCUSATE SODIUM 100MG CAPSULE PO SCH (09:46)
[2020-06-22] MEDS: ACETAMINOPHEN 500 MG TAB PO SCH (09:46)
[2020-06-22] MEDS: LACTOBACILLUS ACIDOPHILUS CAP (BACID) PO SCH (09:46)
[2020-06-22] MEDS: TAMSULOSIN 0.4 MG CAP PO SCH (09:46)
[2020-06-22] MEDS: levETIRAcetam 250MG TABLET (KEPPRA) PO SCH (09:46)
--- NOTE | 2020-06-22 12:31 | PMRDS ---
NAME: KIESHA CH [facility] WT ID#: [id number] JOB: DANIELE: 06/22/2020 ACCT: [id number] DOCTOR: NATA VANESSA MD PMR DISCHARGE SUMMARY DATE OF ADMISSION: 06/13/2020 DATE OF DISCHARGE: 06/22/2020 CHIEF COMPLAINT/DISCHARGE DIAGNOSIS: Pelvic fracture. HISTORY OF PRESENT ILLNESS: This is an 85-year-old man with a past medical history of rectal cancer, status post chemotherapy, radiation, and surgery, status post colostomy, atrial fibrillation, pacemaker, chronic obstructive pulmonary disease (COPD), obstructive sleep apnea (LIANNA), not on continuous positive airway pressure (CPAP), hypertension, hyperlipidemia, diabetes with peripheral polyneuropathy and lower extremity wounds, followed by Dr. Huynh, chronic diastolic congestive heart failure (CHF), chronic kidney disease (CKD) III, obesity, seizures, who fell at home while attempting to get dressed and had a negative workup at outpatient orthopedics. He presented to [facility] ([facility]) on 06/08/[address] lower extremities showed "subtle fracture along the right pubis and involving the right inferior pubic ramus, a small adjacent hematoma, and posttraumatic inflammatory stranding." He was made weightbearing as tolerated, provided with oral analgesics, and started on cefdinir for suspected urinary tract infection (UTI) when he complained of increased urinary frequency, and urinalysis (UA) showed nitrites and leukocyte esterase. He was evaluated by therapy, noted to have mobility and activities of daily living (ADL) impairments, and deemed medically appropriate for discharge to acute rehabilitation unit (ARU). PAST MEDICAL HISTORY: As per history of present illness (HPI). HOSPITAL COURSE: Patient was admitted and enrolled in a comprehensive physical therapy (PT)/occupational therapy (OT) program. He received 24-hour nursing supervision, and weekly team meetings were held to discuss his progress. Patient had good pain control with Tylenol and oxycodone for his right pubic fracture and was maintained on fluid restriction and daily weights in addition to Lasix for his chronic diastolic CHF. Patient complained of mild cough following breathing treatments, however, declined cough syrup with no fevers, chills, or worsening of cough. He was continued on Keppra for his seizure disorder and made steady gains in therapy, deemed medically and functionally stable to return home. DISCHARGE MEDICATIONS: As per instructions. FUNCTIONAL HISTORY ON DISCHARGE: Patient was modified independent for ambulation, functional transfers, and ADLs. Thank you for this referral.
== END 2020-06-22 12:55 | disposition home health service (06) | DRG 560 ==
LOC: M PM&R 17:30
PROVIDERS: ADMIT Physical Medicine & Rehabilitation; ATTEND Physical Medicine & Rehabilitation
DX: S32.591D Other specified fracture of right pubis, subsequent encounter for fracture with routine healing (principal); I13.0 Hypertensive heart and chronic kidney disease with heart failure and stage 1 through stage 4 chronic kidney disease, or unspecified chronic kidney disease; I50.32 Chronic diastolic (congestive) heart failure; N39.0 Urinary tract infection, site not specified; I48.91 Unspecified atrial fibrillation; J44.9 Chronic obstructive pulmonary disease, unspecified; G47.33 Obstructive sleep apnea (adult) (pediatric); E78.5 Hyperlipidemia, unspecified; E11.42 Type 2 diabetes mellitus with diabetic polyneuropathy; N18.30 Chronic kidney disease, stage 3 unspecified; Z66 Do not resuscitate; E11.22 Type 2 diabetes mellitus with diabetic chronic kidney disease; E66.9 Obesity, unspecified; G40.909 Epilepsy, unspecified, not intractable, without status epilepticus; Z95.0 Presence of cardiac pacemaker; Z74.09 Other reduced mobility; Z74.1 Need for assistance with personal care; R53.1 Weakness; Z93.3 Colostomy status; Z92.21 Personal history of antineoplastic chemotherapy; Z92.3 Personal history of irradiation; Z85.038 Personal history of other malignant neoplasm of large intestine; Z79.01 Long term (current) use of anticoagulants; Z79.899 Other long term (current) drug therapy; W18.30XD Fall on same level, unspecified, subsequent encounter; Y92.008 Other place in unspecified non-institutional (private) residence as the place of occurrence of the external cause

== ENCOUNTER → 2020-07-17 | Outpatient (CLI) | payer MEDICARE, OTHER ==
[~2020-07-17] MED LIST changes: +CEFD300CAP PO; +HYDR-3715 PO; +HYDR-4571 PO; +RISATAB3 PO; +SENN-50 PO; +SENN-52 PO
--- NOTE | 2020-07-17 10:27 | REP ---
INDICATION: INJURY. COMPARISON: None. TECHNIQUE: Two frontal views of the pelvis/bilateral hips. FINDINGS: Generalized age-related degenerative changes are appreciated. Nondisplaced fractures involving the right superior and inferior pubic rami are consistent with the known acute fractures on CT dated 06/08/2020. IMPRESSION: Nondisplaced healing fractures of the right superior and inferior pubic rami. <Electronically signed by Gregory Velázquez > 07/17/20 [id number]
== END ==
LOC: M SOG 08:47
PROVIDERS: ATTEND Family Medicine
DX: S32.511D Fracture of superior rim of right pubis, subsequent encounter for fracture with routine healing (principal); X58.XXXD Exposure to other specified factors, subsequent encounter; Y92.9 Unspecified place or not applicable

== ENCOUNTER → 2020-08-16 | Outpatient (CLI) | payer MEDICARE, OTHER ==
--- NOTE | 2020-08-16 09:00 | REP ---
INDICATION: PAIN. COMPARISON: None TECHNIQUE: AP standing FINDINGS: There is moderate bilateral asymmetric hip joint space narrowing without prominent marginal osteophytosis, buttressing, fracture, dislocation, or subluxation. IMPRESSION: Chronic changes as described above. <Electronically signed by Rogerio Donis > 08/16/20 [id number]
== END ==
LOC: M SOG 08:00
PROVIDERS: ATTEND Orthopaedic Surgery Adult Reconstructive Orthopaedic Surgery
DX: R10.2 Pelvic and perineal pain (principal); M16.0 Bilateral primary osteoarthritis of hip

== ENCOUNTER → 2020-08-31 | Outpatient (CLI) | payer MEDICARE, OTHER ==
--- NOTE | 2020-08-31 12:17 | REP ---
INDICATION: RETENION OF URINE COMPARISON: 06/27/2011 TECHNIQUE: Real time colin scale ultrasound examination using curved array transducer. FINDINGS: Right kidney measures approximately 9.1 x 5.2 x 4.7 cm without hydronephrosis and demonstrates innumerable cysts the largest of which measures 12.8 cm and 11.8 cm in the upper and lower poles. The left kidney measures 13.7 x 6.0 x 5.7 cm without hydronephrosis and includes innumerable cysts the largest of which measure 6.1 cm and 3.6 cm in the upper and lower poles. IMPRESSION: Polycystic kidney changes similar when compared to most recent CT dated 05/20/2019. No obvious hydronephrosis. <Electronically signed by Gregory Velázquez > 08/31/20 [id number]
--- NOTE | 2020-08-31 12:23 | REP ---
INDICATION: RETENTION OF URINE. COMPARISON: None. TECHNIQUE: Real-time sonographic evaluation of urinary bladder performed. FINDINGS: Bladder measures 9.2 x 6.4 x 6.5 cm, total volume 250 cc. There is no postvoid residual after voiding. The ureteral jets are not visualized with Doppler color evaluation. There is no significant bladder wall thickening or evidence of bladder mass. No intraluminal calculus is visualized. IMPRESSION: Unremarkable bladder ultrasound. <Electronically signed by Xavier Chen > 08/31/20 [id number]
== END ==
LOC: M RAD 11:18
PROVIDERS: ATTEND Nurse Practitioner Family
DX: R33.9 Retention of urine, unspecified (principal); N28.1 Cyst of kidney, acquired

== ENCOUNTER 2021-03-30 11:27 | Inpatient (IN) | payer MEDICARE, OTHER ==
[~2021-03-30] VITALS: Ht 172.7 cm; Wt 89.6 kg
--- NOTE | 2021-03-30 12:05 | REP ---
INDICATION: DYSPNEA/COUGH COMPARISON: 08/03/2019 TECHNIQUE: Portable AP view of the chest FINDINGS: Moderate to large right pleural effusion with associated elements of consolidation/atelectasis. Cardiomegaly and pulmonary vascular congestion is also suspected. Left hemithorax is relatively well aerated and without focal consolidation or effusion. There is no evidence for pneumothorax. Pacemaker in stable position. Skeletal structures intact. IMPRESSION: 1. Cardiomegaly and evidence for pulmonary vascular congestion. 2. Moderate to large right pleural effusion and right lower lobe consolidation. <Electronically signed by Gregory Velázquez > 03/30/21 [id number]
[2021-03-30 12:19] LABS: VENOUS HCO3 36.7 MEQ/L (23.0-27.0); VENOUS O2 SATURATION 78.9 % (60.0-80.0); VENOUS PARTIAL PRESSURE CO2 79.2 mmHg (38.0-50.0); VENOUS PARTIAL PRESSURE O2 43.6 mmHg (30.0-50.0); VENOUS PH 7.284 UNITS (7.330-7.430); VENOUS STANDARD HCO3 30.3 MEQ/L; VENOUS TOTAL CO2 39.1 MEQ/L (24.0-28.0)
[2021-03-30 12:21] LABS: BASO % 0.7 % (0.0-1.0); EOS # 0.1 10^3/uL (0.0-0.5); EOS % 1.6 % (0.0-3.0); HEMATOCRIT 43.1 % (42.0-52.0); HEMOGLOBIN 12.9 g/dl (13.5-17.5); LYMPH # 0.8 10^3/uL (1.5-5.0); LYMPH % 17.1 % (24.0-44.0); MEAN CORPUSCULAR HEMOGLOBIN 30.9 pg (27.0-33.0); MEAN CORPUSCULAR HGB CONC 29.9 g/dl (32.0-36.5); MEAN CORPUSCULAR VOLUME 103.1 fl (80.0-96.0); MONO # 0.3 10^3/uL (0.0-0.8); MONO % 7.7 % (2.0-8.0); NEUTROPHILS # 3.2 10^3/uL (1.5-8.5); NEUTROPHILS % 72.4 % (36.0-66.0); PLATELET COUNT, AUTOMATED 129 10^3/uL (150-450); RED BLOOD COUNT 4.18 10^6/uL (4.30-6.10); WHITE BLOOD COUNT 4.4 10^3/uL (4.0-10.0)
[2021-03-30 12:41] LABS: INR 1.13; PROTHROMBIN TIME 14.9 SECONDS (12.7-14.5)
[2021-03-30 12:52] LABS: RSV AMPLIFICATION NEGATIVE (NEGATIVE)
[2021-03-30] MEDS ORDERED: FUROSEMIDE 100MG/10ML VIAL (J1940) IV ONE (12:55)
[2021-03-30 13:18] LABS: ALBUMIN 3.4 GM/DL (3.2-5.2); ALT/SGPT 16 U/L (12-78); BILIRUBIN,DIRECT 0.4 MG/DL (0.0-0.2); BILIRUBIN,TOTAL 0.9 MG/DL (0.2-1.0); BLOOD UREA NITROGEN 24 MG/DL (7-18); CALCIUM LEVEL 9.4 MG/DL (8.8-10.2); CARBON DIOXIDE LEVEL 39 MEQ/L (21-32); CHLORIDE LEVEL 102 MEQ/L (98-107); CREATININE FOR GFR 0.92 MG/DL (0.70-1.30); GLOMERULAR FILTRATION RATE > 60.0 (>35); GLUCOSE, FASTING 104 MG/DL (70-100); NT-PRO BNP 4181 PG/ML (<450); POTASSIUM SERUM 3.8 MEQ/L (3.5-5.1); SODIUM LEVEL 144 MEQ/L (136-145); THYROID STIMULATING HORMONE 0.675 uIU/ML (0.358-3.740); TOTAL PROTEIN 7.5 GM/DL (6.4-8.2)
[2021-03-30] MEDS ORDERED: ELIQ5TAB PO (13:53)
[2021-03-30] MEDS ORDERED: FLOM0.4C39 PO (13:53)
[2021-03-30] MEDS ORDERED: LEVE750T5 PO (13:53)
[2021-03-30] MEDS ORDERED: PRAV40TA2 PO (13:53)
[2021-03-30] MEDS ORDERED: ATEN25TA PO (13:53)
[2021-03-30] MEDS ORDERED: ESOM1CAP5 PO (13:53)
[2021-03-30] MEDS ORDERED: FURO40TA2 PO (13:53)
[2021-03-30] MEDS ORDERED: RISATAB3 PO (13:53)
[2021-03-30] MEDS ORDERED: HOME MED LIST COMPLETE! XX SCH (14:00)
--- NOTE | 2021-03-30 14:03 | REP ---
INDICATION: sob COMPARISON: None TECHNIQUE: Axial noncontrast images from the thoracic inlet to the upper abdomen with coronal and sagittal reformations. This CT examination was performed using the following dose reduction techniques: Automated exposure control, adjustment of mA and/or kv according to the patient's size, and use of iterative reconstruction technique. FINDINGS: Large right pleural effusion with underlying elements of passive atelectasis/partial collapse to the right middle lobe and right lower lobe. Minimal posterior basilar atelectasis and pleural reaction at the left base. The mediastinum demonstrates atherosclerotic changes to the thoracic aorta and coronary arteries with cardiomegaly and pacemaker. No pericardial effusion. Musculoskeletal structures are intact. IMPRESSION: 1. Large right pleural effusion with associated atelectasis/partial collapse to the right middle lobe and right lower lobe. Minimal right upper lobe atelectasis and trace left basilar changes along with cardiomegaly. Differential diagnosis includes CHF. <Electronically signed by Gregory Velázquez > 03/30/21 [id number]
--- NOTE | 2021-03-30 14:12 | REP ---
INDICATION: decrease colostomy output COMPARISON: 04/11/2019 TECHNIQUE: Axial noncontrast images from the lung bases to the pubic symphysis with coronal and sagittal reformations. This CT examination was performed using the following dose reduction techniques: Automated exposure control, adjustment of mA and/or kv according to the patient's size, and use of iterative reconstruction technique. FINDINGS: Liver, spleen, pancreas, and gallbladder are essentially normal for noncontrast evaluation. Adrenal glands are stable with small adenomas and hyperplastic changes again noted. Kidneys demonstrate stable polycystic kidney disease without acute perinephric stranding, hydronephrosis or nephrolithiasis. There is evidence for prior partial colectomy with ostomy via the right anterior abdominal wall without evidence for bowel obstruction or obvious acute focal inflammatory changes. Postsurgical changes in the anterior abdominal wall with soft tissue density, fat stranding, and possible small residual seroma are again noted and similar to prior examination. Pelvis demonstrates relatively stable postsurgical changes in the presacral and perirectal space. The bladder demonstrates stable diverticula without acute process. No ascites. No free air. Musculoskeletal structures are intact and without acute osseous abnormality. IMPRESSION: 1. Stable chronic and postsurgical changes as described above. 2. No evidence for acute bowel obstruction or obvious acute inflammatory process. <Electronically signed by Gregory Velázquez > 03/30/21 [id number]
--- NOTE | 2021-03-30 16:34 | HPEPDOC ---
[facility] Medical History & Physical Date of Admission Mar 30, 2021 Date of Service: Mar 30, 2021 Attending Physician: NICOLASA GONZALEZ MD History and Physical CHIEF COMPLAINT: Low colostomy output for 2d and SOB HISTORY OF PRESENT ILLNESS: 85M with a history of rectal cancer s/p chemo-radiation and surgery s/p colostomy, Afib on eliquis, COPD, LIANNA not on CPAP, HTH, HLD, peripheral polyneuropathy and LE wounds followed by Dr. Huynh, chronic diastolic CHF, CKD3, obesity, seizures, who spent time in the ARU for intensive rehab in 05/2020 who now returned to the ED reporting no significant ostomy output for the last 2 days and SOB. He otherwise denied any chest pain, jaw or left arm pain, palpitations, abdominal pain, nausea, emesis, dysuria, fever, chills. 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 At baseline, he ambulates with a walker. In the ED, he was hypertensive but otherwise breathing comfortably on room air and was afebrile. WBC was 4.4, hgb 12.9, platelets 129, na 144, K 3.8, Cr 0.92, proBNP 4181, troponin 0.[address] chest revealed a large R sided pleural effusion with associated RML and RLL lung collapse, after a CXR had showed cardiomegaly and pulmonary vascular congestion. CT A/P showed previously noted partial colectomy without evidence of obstructive pathology. Covid-19 was negative on respiratory panel. He is now being admitted for a CHF exacerbation. REVIEW OF SYSTEMS: The following is a completed review of systems and has been reviewed. Review of systems otherwise unremarkable. EYES: No recent vision changes EARS, NOSE, & THROAT: No throat pain, or dysphagia, or rhinorrhea CARDIOVASCULAR: Denies chest pain or palpitations PULMONARY: Denies shortness of breath GASTROINTESTINAL: Denies constipation/diarrhea, has abdominal pain and had a chronic +colostomy that has not changed in output, consistency or color. GENITOURINARY: denies dysuria or flank pain MUSCULOSKELETAL: right sided weakness per baseline NEUROLOGICAL:+ paresthesias per baseline HEMATOLOGICAL: denies easy bruising SKIN: has RLE chronic wounds PSYCHIATRIC: Unremarkable All other review of systems found to be negative. PAST MEDICAL HISTORY: history of rectal cancer s/p chemo-radiation and surgery s/p colostomy, Afib on eliquis, COPD, LIANNA not on CPAP, HTH, HLD, peripheral polyneuropathy and LE wounds followed by Dr. Huynh, chronic diastolic CHF, CKD3, obesity, seizures PAST SURGICAL HISTORY: abdominoperineal resection with right sided colostomy 2011, SBO with parastomal hernia repair, lysis of adhesions, tonsillectomy, cataract surgery ALLERGIES: Please see below. MEDICATIONS: Please see below. FAMILY HISTORY: Throat cancer, osteoporosis SOCIAL HISTORY: Former alcohol user Former smoker No illicit drug use PHYSICAL EXAMINATION: VITAL SIGNS: Please see below. GENERAL: Pleasant and cooperative. No acute distress. HEENT: PERRL. Extraocular movements intact. Clear conjunctiva. Very poor de ntition, Long ornelas, disheveled. CARDIOVASCULAR: Irregular rate and rhythm. No murmurs, rubs, or gallops LUNGS: No wheezing, diminished right posterior lung field, L side with some crackles ABDOMEN: Normoactive bowel sounds, soft, nontender, nondistended. Colostomy at R abdomen with some liquid stool NEUROLOGICAL: Alert and oriented times three. Cranial nerves II through XII grossly intact. Sensation decreased in glove and stocking pattern, 5/5 strength in all 4 extremities EXTREMITIES: WWP, 2+ LE pitting edema SKIN: chronic LE hemosiderosis with chronic venous stasis and hyperkeratosis with some scaling of the skin LABORATORY DATA: Please see below. IMAGING: Imaging documentation personally reviewed and discussed above. CT A/P: Liver, spleen, pancreas, and gallbladder are essentially normal for noncontrast evaluation. Adrenal glands are stable with small adenomas and hyperplastic ch anges again noted. Kidneys demonstrate stable polycystic kidney disease without acute perinephric stranding, hydronephrosis or nephrolithiasis. There is evidence for prior partial colectomy with ostomy via the right anterior abdominal wall without evidence for bowel obstruction or obvious acute focal inflammatory changes. Postsurgical changes in the anterior abdominal wall with soft tissue density, fat stranding, and possible small residual seroma are again noted and similar to prior examination. Pelvis demonstrates relatively stable postsurgical changes in the presacral and perirectal space. The bladder demonstrates stable diverticula without acute process. No ascites. No free air. Musculoskeletal structures are intact and without acute osseous abnormality. IMPRESSION: 1. Stable chronic and postsurgical changes as described above. 2. No evidence for acute bowel obstruction or obvious acute inflammatory process. CT chest: Large right pleural effusion with underlying elements of passive atelectasis/partial collapse to the right middle lobe and right lower lobe. Minimal posterior basilar atelectasis and pleural reaction at the left base. The mediastinum demonstrates atherosclerotic changes to the thoracic aorta and coronary arteries with cardiomegaly and pacemaker. No pericardial effusion. Musculoskeletal structures are intact. IMPRESSION: 1. Large right pleural effusion with associated atelectasis/partial collapse to the right middle lobe and right lower lobe. Minimal right upper lobe atelectasis and trace left basilar changes along with cardiomegaly. Differential diagnosis includes CHF. CXR: Moderate to large right pleural effusion with associated elements of consolidation/atelectasis. Cardiomegaly and pulmonary vascular congestion is also suspected. Left hemithorax is relatively well aerated and without focal consolidation or effusion. There is no evidence for pneumothorax. Pacemaker in stable position. Skeletal structures intact. IMPRESSION: 1. Cardiomegaly and evidence for pulmonary vascular congestion. 2. Moderate to large right pleural effusion and right lower lobe consolidation. ASSESSMENT: 85-year-old M with past medical history of HTN, diastolic CHF, COPD who presented with constipation/low colostomy output for two days and dyspnea i/s/o stopping his lasix and is now admitted for HFpEF exacerbation. PLAN: Acute on chronic diastolic CHF i/s/o medication non compliance -Hold home lasix, start IV 40mg Q8H -strict I/Os -2g, 2L/24h diet -daily weights -daily BMP and mag -telemetry Low ostomy output, suspect constipation: -CT A/P did not show obstructive pathology -start miralax BID Chronic AFib w/ PPM -c/w eliquis and atenolol Seizure disorder: -continue home keppra HLD: - continue home statin COPD not on 02: no evidence of exacerbation. LINANA not on CPAP: -supplemental O2 for nocturnal hypoxemia History of DM -diet controlled -daily BMP GERD: -protonix daily DVT ppx- on full dose eliquis Vital Signs Vital Signs Date Time Temp Pulse Resp B/P (MAP) Pulse Ox O2 Delivery O2 Flow Rate FiO2 03/30/21 14:45 165/86 (112) 03/30/21 14:42 89 03/30/21 14:27 20 97 03/30/21 11:41 98.6 Nasal Cannula Laboratory Data Labs 24H Laboratory Tests 2 03/30/21 12:05: Immature Granulocyte % (Auto) 0.5, Neutrophils (%) (Auto) 72.4H, Lymphocytes (%) (Auto) 17.1L, Monocytes (%) (Auto) 7.7, Eosinophils (%) (Auto) 1.6, Basophils (%) (Auto) 0.7, Neutrophils # (Auto) 3.2, Lymphocytes # (Auto) 0.8L, Monocytes # (Auto) 0.3, Eosinophils # (Auto) 0.1, Basophils # (Auto) 0.0, Nucleated Red Blood Cells % (auto) 0.0, Prothrombin Time 14.9H, Prothromb Time International Ratio 1.13, Blood Gas Bicarbonate Standard 30.3, Venous Blood pH 7.284L, Venous Blood Partial Pressure CO2 79.2H, Venous Blood Partial Pressure O2 43.6, Venous Blood Total Carbon Dioxide 39.1H, Venous Blood HCO3 36.7H, Venous Blood Oxygen Saturation 78.9, Venous Blood Base Excess 7.0H, Anion Gap 3L, Glomerular Filtrat ion Rate > 60.0, Lactic Acid Level 1.0, Calcium Level 9.4, Total Bilirubin 0.9, Direct Bilirubin 0.4H, Aspartate Amino Transf (AST/SGOT) 10, Alanine Aminotransferase (ALT/SGPT) 16, Alkaline Phosphatase 74, YE-Jkm-W-Type Natriuretic Peptide 4181H, Total Protein 7.5, Albumin 3.4, Albumin/Globulin Rati o 0.8, Thyroid Stimulating Hormone (TSH) 0.675, Coronavirus (COVID-19)(PCR) NEGATIVE, Influenza Type A (RT-PCR) NEGATIVE, Influenza Type B (RT-PCR) NEGATIVE, Respiratory Syncytial Virus (PCR) NEGATIVE 03/30/21 12:06: POC Glucose (Misc Panel) 102, POC Sodium (Misc Panel) 144, POC Potassium (Misc Panel) 3.6, POC Chloride (Misc Panel) 95L, POC Total CO2 (Misc Panel) 38.0H, POC Blood Urea Nitrogen (Misc Panel 26, POC Ionized Calcium (Misc Panel) 5.1, POC Creatinine (Misc Panel) 0.9, POC Hematocrit (Misc Panel) 43.0 03/30/21 12:07: POC Troponin I (Misc) 0.03 CBC/BMP Laboratory Tests 03/30/21 12:05 Microbiology Microbiology 03/30/21 Blood Culture, Received Pending 03/30/21 Blood Culture, Received Pending Home Medications Scheduled Apixaban (Eliquis) 5 Mg Tablet, 5 MG PO BID Atenolol (Atenolol) 25 Mg Tablet, 25 MG PO DAILY Calcium Carbonate/Vitamin D3 (Oyster Shell Calcium-Vit D Tab) 1 Each Tablet, 1 TAB PO DAILY Esomeprazole Magnesium (Esomeprazole Magnesium) 40 Mg Capsule.dr, 40 MG PO DAILY Furosemide (Furosemide) 40 Mg Tablet, 40 MG PO DAILY L.acidoph/L.bulg/B.bif/S.therm (Apris-Bid Caplet) 1 Each Tablet, 1 TAB PO BID Levetiracetam (Levetiracetam) 750 Mg Tablet, 750 MG PO BID Pravastatin Sodium (Pravastatin Sodium) 40 Mg Tablet, 40 MG PO QHS Tamsulosin HCl (Flomax) 0.4 Mg Capsule, 0.4 MG PO DAILY Allergies Coded Allergies: No Known Allergies (Unverified , 05/20/19) A-FIB/CHADSVASC A-FIB History Current/History of A-Fib/PAF?: Yes Current PO Anticoag Therapy: Yes Treatment Treatment ordered: Apixaban NICOLASA GONZALEZ MD Mar 30, 2021 15:30
[2021-03-30 18:06] VITALS: BP 173/91
[2021-03-30] MEDS: MIRALAX *UNIT DOSE* 17GM PACKET PO SCH (21:14)
[2021-03-30] MEDS: levETIRAcetam 250MG TABLET (KEPPRA) PO SCH (21:15)
[2021-03-30] MEDS: LACTOBACILLUS ACIDOPHILUS CAP (BACID) PO SCH (21:15)
[2021-03-30] MEDS: PRAVASTATIN 20 MG TAB PO SCH (21:15)
[2021-03-30] MEDS: APIXABAN 5 MG TAB (ELIQUIS) PO SCH (21:16)
[2021-03-30 22:00] VITALS: BP 147/74
[2021-03-31] MEDS ORDERED: FUROSEMIDE 40MG/4ML VIAL (J1940) IV SCH
[2021-03-31] MEDS: FUROSEMIDE 40MG/4ML VIAL (J1940) IV SCH ×3 (00:42→16:11)
[2021-03-31] MEDS: ACETAMINOPHEN TAB 650MG DOSE (2X325MG) PO PRN ×3 (03:20→21:04)
[2021-03-31 04:45] VITALS: BP 140/76
--- NOTE | 2021-03-31 05:52 | IPNPDOC ---
Text Note Date of Service The patient was seen on 03/31/21. NOTE Notified patient with visual disturbance per RN. Patient seen at bedside in no acute distress he reports everything is at baseline now. He is a/ox3. He had no focal or unilateral weaknesses/ sensory changes. At baseline he has visual impairments with his field of vision with macular degeneration and he does have generalized deconditioning as well as peripheral numbness tingling with his neuropathy of his feet and hands. No aphasia. He does have visual field deficits but where he normally has trouble with his macular degeneration when visual field exam performed. He describes the episode as when he woke up from sleep around 4 AM, seeing the things on the wall (the whiteboard, pictures) on the ground and things that were horizontal looked vertical such as a cup on the bedside table. He is at a slouched position upon arrival into the room and he was encouraged to reposition himself in the middle of the bed and sit up more. He does have a history of seizures but no other seizure-like activity was noted by the RN. Pt was able to clearly read the clock on the wall and state the time during exam, but had trouble reading as far as the areas of the wall/ papers under the clock, which are the items he said were on the floor. Patient reports that he did have something similar happen to him 2 years ago when he was in the hospital having his Gi procedures done; he stated things were looking up vertical or stacked. Hr 70, RR22, SPO2 92% nasal cannula. BP 140/70. Temp 98.2. Blood glucose 108. A.m. labs pending and encouraged continued monitoring. Consider further neuro work-up pending patient response/clinical course. VS,Fishbone, I+O VS, Fishbone, I+O Laboratory Tests 03/30/21 12:05 Vital Signs Date Time Temp Pulse Resp B/P (MAP) Pulse Ox O2 Delivery O2 Flow Rate FiO2 03/31/21 04:45 98.4 80 24 140/76 (97) 95 Nasal Cannula 4.0 I&O- Last 24 Hours up to 6 AM 03/31/21 06:00 Intake Total 200 ml Output Total 3700 ml Balance -3500 ml AUDI KWOK NP Mar 31, 2021 05:52 SEBAS CATES MD Mar 31, 2021 18:53
[2021-03-31 06:59] LABS: ALBUMIN 3.1 GM/DL (3.2-5.2); ALT/SGPT 18 U/L (12-78); BILIRUBIN,TOTAL 1.4 MG/DL (0.2-1.0); BLOOD UREA NITROGEN 21 MG/DL (7-18); CALCIUM LEVEL 9.2 MG/DL (8.8-10.2); CARBON DIOXIDE LEVEL 43 MEQ/L (21-32); CHLORIDE LEVEL 95 MEQ/L (98-107); CREATININE FOR GFR 0.95 MG/DL (0.70-1.30); GLOMERULAR FILTRATION RATE > 60.0 (>35); GLUCOSE, FASTING 104 MG/DL (70-100); MAGNESIUM LEVEL 1.9 MG/DL (1.8-2.4); NT-PRO BNP 5473 PG/ML (<450); POTASSIUM SERUM 3.2 MEQ/L (3.5-5.1); SODIUM LEVEL 142 MEQ/L (136-145); TOTAL PROTEIN 6.9 GM/DL (6.4-8.2)
--- NOTE | 2021-03-31 07:48 | ECGEPIP ---
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
[2021-03-31] MEDS: LACTOBACILLUS ACIDOPHILUS CAP (BACID) PO SCH ×2 (09:57→21:02)
[2021-03-31] MEDS: levETIRAcetam 250MG TABLET (KEPPRA) PO SCH ×2 (09:57→21:02)
[2021-03-31] MEDS: MIRALAX *UNIT DOSE* 17GM PACKET PO SCH (09:57)
[2021-03-31] MEDS: PANTOPRAZOLE 40MG TAB (PROTONIX) PO SCH (09:58)
[2021-03-31] MEDS: TAMSULOSIN 0.4 MG CAP PO SCH (09:58)
[2021-03-31] MEDS: APIXABAN 5 MG TAB (ELIQUIS) PO SCH ×2 (09:59→21:02)
[2021-03-31] MEDS: POTASSIUM CHLORIDE 10MEQ SR TABLET PO SCH ×2 (09:59→12:05)
[2021-03-31] MEDS: atenoloL 25 MG TAB PO SCH (09:59)
[2021-03-31 10:51] LABS: HEMATOCRIT 42.3 % (42.0-52.0); HEMOGLOBIN 12.8 g/dl (13.5-17.5); MEAN CORPUSCULAR HEMOGLOBIN 31.1 pg (27.0-33.0); MEAN CORPUSCULAR HGB CONC 30.3 g/dl (32.0-36.5); MEAN CORPUSCULAR VOLUME 102.9 fl (80.0-96.0); PLATELET COUNT, AUTOMATED 135 10^3/uL (150-450); RED BLOOD COUNT 4.11 10^6/uL (4.30-6.10); WHITE BLOOD COUNT 6.4 10^3/uL (4.0-10.0)
--- NOTE | 2021-03-31 11:56 | IPNPDOC ---
Text Note Date of Service The patient was seen on 03/31/21. NOTE Subjective: -No acute complaints -Overnight had an episode of visual disturbances but neurological examination by provider was at baseline. No further complaints this AM Objective: VITAL SIGNS: Please see below. GENERAL: Pleasant and cooperative. No acute distress. HEENT: PERRL. Extraocular movements intact. Clear conjunctiva. Very poor dentition, Long ornelas, disheveled. CARDIOVASCULAR: Irregular rate and rhythm. No murmurs, rubs, or gallops LUNGS: No wheezing, continues to be diminished in the right posterior lung field, L side with some crackles ABDOMEN: Normoactive bowel sounds, soft, nontender, nondistended. Colostomy at R abdomen with some liquid stool NEUROLOGICAL: Alert and oriented times three. Cranial nerves II through XII grossly intact. Sensation decreased in glove and stocking pattern, 5/5 strength in all 4 extremities EXTREMITIES: WWP, 2+ LE pitting edema SKIN: chronic LE hemosiderosis with chronic venous stasis and hyperkeratosis with some scaling of the skin LABORATORY DATA: Reviewed Na 143 k 3.2 (repleted) Cr 0.95 mag 1.9 proBNP 5473 IMAGING: CT A/P: Liver, spleen, pancreas, and gallbladder are essentially normal for noncontrast evaluation. Adrenal glands are stable with small adenomas and hyperplastic changes again noted. Kidneys demonstrate stable polycystic kidney disease without acute perinephric stranding, hydronephrosis or nephrolithiasis. There is evidence for prior partial colectomy with ostomy via the right anterior abdominal wall without evidence for bowel obstruction or obvious acute focal inflammatory changes. Postsurgical changes in the anterior abdominal wall with soft tissue density, fat stranding, and possible small residual seroma are again noted and similar to prior examination. Pelvis demonstrates relatively stable postsurgical changes in the presacral and perirectal space. The bladder demonstrates stable diverticula without acute process. No ascites. No free air. Musculoskeletal structures are intact and without acute osseous abnormality. IMPRESSION: 1. Stable chronic and postsurgical changes as described above. 2. No evidence for acute bowel obstruction or obvious acute inflammatory pro cess. CT chest: Large right pleural effusion with underlying elements of passive atelectasis/partial collapse to the right middle lobe and right lower lobe. Minimal posterior basilar atelectasis and pleural reaction at the left base. The mediastinum demonstrates atherosclerotic changes to the thoracic aorta and coronary arteries with cardiomegaly and pacemaker. No pericardial effusion. Musculoskeletal structures are intact. IMPRESSION: 1. Large right pleural effusion with associated atelectasis/partial collapse to the right middle lobe and right lower lobe. Minimal right upper lobe atelectasis and trace left basilar changes along with cardiomegaly. Differential diagnosis includes CHF. CXR: Moderate to large right pleural effusion with associated elements of consolidation/atelectasis. Cardiomegaly and pulmonary vascular congestion is also suspected. Left hemithorax is relatively well aerated and without focal consolidation or effusion. There is no evidence for pneumothorax. Pacemaker in stable position. Skeletal structures intact. IMPRESSION: 1. Cardiomegaly and evidence for pulmonary vascular congestion. 2. Moderate to large right pleural effusion and right lower lobe consolidation. ASSESSMENT: 85-year-old M with past medical history of HTN, diastolic CHF, COPD who presented with constipation/low colostomy output for two days and dyspnea i/s/o stopping his lasix and is now admitted for HFpEF exacerbation. PLAN: Acute on chronic diastolic CHF i/s/o medication non compliance -Continue IV 40mg Q8H -strict I/Os -2g, 2L/24h diet -daily weights -daily CMP and mag -telemetry Low ostomy output, suspect constipation: -CT A/P did not show obstructive pathology -Continue miralax BID Chronic AFib w/ PPM -c/w eliquis and atenolol Seizure disorder: -continue home keppra HLD: - continue home statin COPD not on 02: no evidence of exacerbation. LIANNA not on CPAP: -supplemental O2 for nocturnal hypoxemia History of DM -diet controlled -daily BMP GERD: -protonix daily DVT ppx- on full dose eliquis VS,Fishbone, I+O VS, Fishbone, I+O Laboratory Tests 03/30/21 12:05 03/31/21 05:45 Vital Signs Date Time Temp Pulse Resp B/P (MAP) Pulse Ox O2 Delivery O2 Flow Rate FiO2 03/31/21 04:45 98.4 80 24 140/76 (97) 95 Nasal Cannula 4.0 I&O- Last 24 Hours up to 6 AM 03/31/21 06:00 Intake Total 350 ml Output Total 3750 ml Balance -3400 ml NICOLASA GONZALEZ MD Mar 31, 2021 08:44
[2021-03-31 14:00] VITALS: BP 134/79
--- NOTE | 2021-03-31 14:45 | REP ---
INDICATION: Trauma COMPARISON: 08/16/2020 TECHNIQUE: Single AP view of the pelvis. FINDINGS: Single AP view of the pelvis demonstrates no obvious acute fracture or dislocation. There is a known old injury involving the right pubis and right inferior pubic ramus. IMPRESSION: 1. Known prior fractures of the right inferior ramus and pubis. 2. No obvious acute fracture or dislocation identified. CT from 03/30/2021 demonstrated the fractures with healing periosteal reaction and callus formation and no obvious acute fracture <Electronically signed by Gregory Velázquez > 03/31/21 [id number]
--- NOTE | 2021-03-31 14:47 | REP ---
INDICATION: Trauma COMPARISON: 03/30/2021 TECHNIQUE: Portable AP view of the chest FINDINGS: Large right pleural effusion and underlying predominately right-sided airspace disease again noted and variation likely represents redistribution due to positioning. Left hemithorax is relatively clear. Visualized portions of the mediastinum and cardiac silhouette are stable. IMPRESSION: Large right pleural effusion and underlying airspace disease again noted. <Electronically signed by Gregory Velázquez > 03/31/21 [id number]
--- NOTE | 2021-03-31 14:57 | REP ---
INDICATION: Trauma COMPARISON: 06/08/2020 TECHNIQUE: Axial noncontrast images from the skull base to the thoracic inlet with coronal reformations. This CT examination was performed using the following dose reduction techniques: Automated exposure control, adjustment of mA and/or kv according to the patient's size, and use of iterative reconstruction technique. FINDINGS: Atrophy with periventricular leukomalacia and microvascular ischemic changes are appreciated. The ventricles and sulci are symmetric. Chen-white differentiation is maintained. There is no evidence for acute intracranial hemorrhage, mass/mass effect, pathology or infarction. No extra-axial fluid collection. Calvarium is intact. Paranasal sinuses and mastoid air cells are clear. IMPRESSION: Atrophy and microvascular ischemic changes. No acute intracranial hemorrhage, infarction, or mass/mass effect. <Electronically signed by Gregory Velázquez > 03/31/21 [id number]
--- NOTE | 2021-03-31 14:59 | REP ---
INDICATION: Trauma COMPARISON: 03/30/2009 TECHNIQUE: Axial noncontrast images from the skull base to the thoracic inlet with coronal and sagittal re-formations This CT examination was performed using the following dose reduction techniques: Automated exposure control, adjustment of mA and/or kv according to the patient's size, and use of iterative reconstruction technique. FINDINGS: Advanced multilevel degenerative changes include endplate sclerosis/heterogeneity, osteophytosis, disc space narrowing, and facet arthropathy alignment is maintained. There is no acute fracture/compression injury or subluxation. Spinal canal is patent. Posterior elements and spinous processes are intact. Paravertebral soft tissues are within normal limits. IMPRESSION: Advanced multilevel degenerative spondylosis. No evidence for acute pathology or trauma/injury. <Electronically signed by Gregory Velázquez > 03/31/21 [id number]
--- NOTE | 2021-03-31 15:02 | REP ---
INDICATION: TRAUMA. COMPARISON: None. TECHNIQUE: Axial noncontrast images of the thoracic spine with coronal and sagittal reformations. FINDINGS: Moderate to advanced multilevel degenerative changes include osteophytosis, endplate sclerosis, and minimal disc space narrowing. Chronic Schmorl's node along the superior endplate of T3. alignment and kyphosis maintained. No acute fracture/compression injury or subluxation. Spinal canal is patent. Posterior elements and spinous processes are intact. IMPRESSION: Degenerative spondylosis. No evidence for acute trauma/injury. <Electronically signed by Gregory Velázquez > 03/31/21 [id number]
--- NOTE | 2021-03-31 15:06 | REP ---
INDICATION: TRAUMA. COMPARISON: 06/08/2020 TECHNIQUE: Axial noncontrast images of the lumbosacral spine from mid T12 through mid sacrum with coronal and sagittal reformations. This CT examination was performed using the following dose reduction techniques: Automated exposure control, adjustment of mA and/or kv according to the patient's size, and use of iterative reconstruction technique. FINDINGS: Alignment and lordosis maintained. Moderate to advanced multilevel degenerative changes include osteophytosis, endplate sclerosis, disc space narrowing and facet arthropathy. Vertebral bodies are intact and there is no evidence for acute fracture/compression injury or subluxation. Posterior elements and spinous processes are intact. The spinal canal is patent. The paravertebral soft tissues are normal. IMPRESSION: Multilevel degenerative spondylosis. No evidence for acute fracture/compression injury or subluxation. <Electronically signed by Gregory Velázquez > 03/31/21 [id number]
[2021-03-31] MEDS ORDERED: BUDESONIDE 180MCG INHALER (PULMICORT FLEXHALER) INH SCH (20:00)
[2021-03-31] MEDS ORDERED: GLUCAGON INJ 1MG VIAL SC PRN (20:30)
[2021-03-31] MEDS ORDERED: GLUCOSE 4GM CHEW TABLET PO PRN (20:30)
[2021-03-31] MEDS ORDERED: IPRATROPIUM 0.5MG/ALBUTEROL 2.5MG INH SOL UD 3ML (DUONEB) NEB PRN (20:30)
[2021-03-31] MEDS ORDERED: DEXTROSE 50% 50 ML SYRINGE IV PRN (20:30)
[2021-03-31] MEDS: HumaLOG INSULIN (NovoLOG) PER UNIT SC SCH (20:48)
[2021-03-31 20:50] VITALS: BP 115/71
[2021-03-31] MEDS: PRAVASTATIN 20 MG TAB PO SCH (21:03)
[2021-03-31] MEDS: RAMELTEON 8 MG TAB (ROZEREM) PO PRN (21:03)
[2021-04-01] VITALS (7 sets, daily range): BP systolic 88–115; BP diastolic 51–72
[2021-04-01 07:22] LABS: HEMATOCRIT 41.2 % (42.0-52.0); HEMOGLOBIN 12.7 g/dl (13.5-17.5); MEAN CORPUSCULAR HEMOGLOBIN 31.8 pg (27.0-33.0); MEAN CORPUSCULAR HGB CONC 30.8 g/dl (32.0-36.5); PLATELET COUNT, AUTOMATED 120 10^3/uL (150-450); WHITE BLOOD COUNT 5.5 10^3/uL (4.0-10.0)
[2021-04-01] MEDS: HumaLOG INSULIN (NovoLOG) PER UNIT SC SCH ×4 (07:30→20:57)
[2021-04-01 07:48] LABS: HEMOGLOBIN A1c 5.6 %
[2021-04-01 07:49] LABS: ALBUMIN 2.9 GM/DL (3.2-5.2); ALT/SGPT 19 U/L (12-78); BLOOD UREA NITROGEN 24 MG/DL (7-18); CARBON DIOXIDE LEVEL 44 MEQ/L (21-32); CHLORIDE LEVEL 95 MEQ/L (98-107); CREATININE FOR GFR 1.11 MG/DL (0.70-1.30); GLOMERULAR FILTRATION RATE > 60.0 (>35); GLUCOSE, FASTING 94 MG/DL (70-100); MAGNESIUM LEVEL 2.1 MG/DL (1.8-2.4); POTASSIUM SERUM 3.5 MEQ/L (3.5-5.1); SODIUM LEVEL 142 MEQ/L (136-145); TOTAL PROTEIN 6.5 GM/DL (6.4-8.2)
[2021-04-01] MEDS ORDERED: POTASSIUM CHLORIDE 10MEQ SR TABLET PO ONE (08:35)
[2021-04-01] MEDS: atenoloL 25 MG TAB PO SCH ×3 (09:00→16:06)
[2021-04-01] MEDS ORDERED: FUROSEMIDE 40MG/4ML VIAL (J1940) IV SCH (09:00)
[2021-04-01] MEDS: LACTOBACILLUS ACIDOPHILUS CAP (BACID) PO SCH ×2 (09:27→21:53)
[2021-04-01] MEDS: FUROSEMIDE 40 MG TAB PO SCH ×2 (09:29→22:36)
[2021-04-01] MEDS: levETIRAcetam 250MG TABLET (KEPPRA) PO SCH ×2 (09:29→21:53)
[2021-04-01] MEDS: TAMSULOSIN 0.4 MG CAP PO SCH (09:29)
[2021-04-01] MEDS: PANTOPRAZOLE 40MG TAB (PROTONIX) PO SCH (09:29)
[2021-04-01] MEDS: APIXABAN 5 MG TAB (ELIQUIS) PO SCH ×2 (09:30→21:53)
[2021-04-01] MEDS: MIRALAX *UNIT DOSE* 17GM PACKET PO SCH (09:31)
[2021-04-01] MEDS: BUDESONIDE 0.5 MG/2 ML INHALATION SUSPENSION INH SCH ×2 (11:36→19:21)
--- NOTE | 2021-04-01 16:20 | IPNPDOC ---
Text Note Date of Service The patient was seen on 04/01/21. NOTE Subjective: -Fell yesterday out of bed -has encephalopathy and some confusion and placed on careview. -Otherwise without complaints this morning Objective: VITAL SIGNS: Please see below. GENERAL: Pleasant and cooperative. No acute distress. HEENT: PERRL. Extraocular movements intact. Clear conjunctiva. Very poor dentition, Long ornelas, disheveled. CARDIOVASCULAR: Irregular rate and rhythm. No murmurs, rubs, or gallops LUNGS: No wheezing, continues to be diminished in the right posterior lung field, L side with some crackles ABDOMEN: Normoactive bowel sounds, soft, nontender, nondistended. Colostomy at R abdomen with some liquid stool NEUROLOGICAL: Alert and oriented times three. Cranial nerves II through XII grossly intact. 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 Adrenal glands are stable with small adenomas and hyperplastic changes again noted. Kidneys demonstrate stable polycystic kidney disease without acute perinephric stranding, hydronephrosis or nephrolithiasis. There is evidence for prior partial colectomy with ostomy via the right anterior abdominal wall without evidence for bowel obstruction or obvious acute focal inflammatory changes. Postsurgical changes in the anterior abdominal wall with soft tissue density, fat stranding, and possible small residual seroma are again noted and similar to prior examination. Pelvis demonstrates relatively stable postsurgical changes in the presacral and perirectal space. The bladder demonstrates stable diverticula without acute process. No ascites. No free air. Musculoskeletal structures are intact and without ac seminole osseous abnormality. IMPRESSION: 1. Stable chronic and postsurgical changes as described above. 2. No evidence for acute bowel obstruction or obvious acute inflammatory process. 03/30 CT chest: Large right pleural effusion with underlying elements of passive atelectasis/partial collapse to the right middle lobe and right lower lobe. Minimal posterior basilar atelectasis and pleural reaction at the left base. The mediastinum demonstrates atherosclerotic changes to the thoracic aorta and coronary arteries with cardiomegaly and pacemaker. No pericardial effusion. Musculoskeletal structures are intact. IMPRESSION: 1. Large right pleural effusion with associated atelectasis/partial collapse to the right middle lobe and right lower lobe. Minimal right upper lobe atelectasis and trace left basilar changes along with cardiomegaly. Differential diagnosis includes CHF. [id number] CXR: Moderate to large right pleural effusion with associated elements of consolidation/atelectasis. Cardiomegaly and pulmonary vascular congestion is also suspected. Left hemithorax is relatively well aerated and without focal consolidation or effusion. There is no evidence for pneumothorax. Pacemaker in stable position. Skeletal structures intact. IMPRESSION: 1. Cardiomegaly and evidence for pulmonary vascular congestion. 2. Moderate to large right pleural effusion and right lower lobe consolidation. 03/31 Ct head: No evidence of acute bleeding, no mass effect or acute infarction 03/31 Ct C-spine: Degenerative disease, chronic spondylosis. No acute fracture or subluxation 03/31 CT T-spine: Degenerative spondylosis. No evidence for acute trauma/injury. 03/31 CT L spine: Multilevel degenerative spondylosis. No evidence for acute fracture/compression injury or subluxation. 03/31 XR of pelvis: Known prior fractures of the right inferior ramus and pubis. No new acute fractures or dislocation 03/31 CXR: stable large R pleural effusion and air space disease. No rib fractures noted ASSESSMENT: 85-year-old M with past medical history of HTN, diastolic CHF, COPD who presented with constipation/low colostomy output for two days and dyspnea i/s/o stopping his lasix and is now admitted for HFpEF exacerbation. PLAN: Acute on chronic diastolic CHF i/s/o medication non compliance -reduce loop diuretic to 40 lasix PO BID. -strict I/Os -2g, 2L/24h diet -daily weights -daily CMP and mag -telemetry -discontinue pettit Encephalopathy: suspect delirium -Unlikely 2/2 infection without leukocytosis, fever or clinical suspicion -CT head was without acute pathology -hypoxemia is at recent baseline of 2L -On careview, redirect Low ostomy output, suspect constipation: improved -CT A/P did not show obstructive pathology -Continue miralax QD Chronic AFib w/ PPM -c/w eliquis and atenolol Seizure disorder: -continue home keppra HLD: - continue home statin COPD not on 02: no evidence of exacerbation. LIANNA not on CPAP: -supplemental O2 for nocturnal hypoxemia History of DM -diet controlled -daily BMP GERD: -protonix daily DVT ppx- on full dose eliquis VS,Fishbone, I+O VS, Fishbone, I+O Laboratory Tests 04/01/21 06:35 Vital Signs Date Time Temp Pulse Resp B/P (MAP) Pulse Ox O2 Delivery O2 Flow Rate FiO2 04/01/21 06:38 97.5 61 20 115/72 (86) 93 Nasal Cannula 2.0 I&O- Last 24 Hours up to 6 AM 04/01/21 06:00 Intake Total 1270 ml Output Total 925 ml Balance 345 ml NICOLASA GONZALEZ MD Apr 01, 2021 08:32
[2021-04-01] MEDS: ACETAMINOPHEN TAB 650MG DOSE (2X325MG) PO PRN ×2 (17:24→21:53)
[2021-04-01] MEDS: PRAVASTATIN 20 MG TAB PO SCH (21:53)
[2021-04-01] MEDS: RAMELTEON 8 MG TAB (ROZEREM) PO PRN (21:54)
[2021-04-01] MEDS: VANICREAM MOISTURIZING SKIN CREAM 113GM TUBE TOP PRN (23:57)
[2021-04-02] MEDS: NYSTATIN 100,000 UNITS/GM TOPICAL PWD 15 GM TOP SCH ×3 (00:41→20:49)
[2021-04-02 00:59] LABS: HEMATOCRIT 40.4 % (42.0-52.0); MEAN CORPUSCULAR HEMOGLOBIN 30.8 pg (27.0-33.0); MEAN CORPUSCULAR HGB CONC 29.7 g/dl (32.0-36.5); MEAN CORPUSCULAR VOLUME 103.6 fl (80.0-96.0); PLATELET COUNT, AUTOMATED 129 10^3/uL (150-450); WHITE BLOOD COUNT 5.3 10^3/uL (4.0-10.0)
[2021-04-02 02:24] LABS: ALBUMIN 2.6 GM/DL (3.2-5.2); ALT/SGPT 16 U/L (12-78); BILIRUBIN,TOTAL 0.6 MG/DL (0.2-1.0); BLOOD UREA NITROGEN 30 MG/DL (7-18); CALCIUM LEVEL 8.8 MG/DL (8.8-10.2); CARBON DIOXIDE LEVEL 50 MEQ/L (21-32); CHLORIDE LEVEL 96 MEQ/L (98-107); CREATININE FOR GFR 1.32 MG/DL (0.70-1.30); GLUCOSE, FASTING 126 MG/DL (70-100); MAGNESIUM LEVEL 1.9 MG/DL (1.8-2.4); POTASSIUM SERUM 4.1 MEQ/L (3.5-5.1); SODIUM LEVEL 140 MEQ/L (136-145); TOTAL PROTEIN 6.5 GM/DL (6.4-8.2)
[2021-04-02 05:00] VITALS: BP 104/58
[2021-04-02 05:02] VITALS: BP 96/56
[2021-04-02 07:21] LABS: HEMATOCRIT 41.6 % (42.0-52.0); HEMOGLOBIN 12.7 g/dl (13.5-17.5); MEAN CORPUSCULAR HEMOGLOBIN 31.4 pg (27.0-33.0); MEAN CORPUSCULAR HGB CONC 30.5 g/dl (32.0-36.5); PLATELET COUNT, AUTOMATED 119 10^3/uL (150-450); RED BLOOD COUNT 4.04 10^6/uL (4.30-6.10); WHITE BLOOD COUNT 5.8 10^3/uL (4.0-10.0)
[2021-04-02] MEDS: BUDESONIDE 0.5 MG/2 ML INHALATION SUSPENSION INH SCH ×2 (07:21→19:37)
[2021-04-02 07:22] VITALS: O2SAT 96
[2021-04-02] MEDS: HumaLOG INSULIN (NovoLOG) PER UNIT SC SCH ×4 (07:30→20:48)
[2021-04-02 07:51] LABS: ALBUMIN 2.5 GM/DL (3.2-5.2); ALT/SGPT 19 U/L (12-78); BILIRUBIN,TOTAL 0.9 MG/DL (0.2-1.0); BLOOD UREA NITROGEN 34 MG/DL (7-18); CARBON DIOXIDE LEVEL 37 MEQ/L (21-32); CHLORIDE LEVEL 98 MEQ/L (98-107); CREATININE FOR GFR 1.18 MG/DL (0.70-1.30); GLOMERULAR FILTRATION RATE > 60.0 (>35); GLUCOSE, FASTING 102 MG/DL (70-100); MAGNESIUM LEVEL 2.1 MG/DL (1.8-2.4); POTASSIUM SERUM 5.9 MEQ/L (3.5-5.1); SODIUM LEVEL 136 MEQ/L (136-145)
[2021-04-02] MEDS: atenoloL 25 MG TAB PO SCH (09:00)
[2021-04-02] MEDS: MIRALAX *UNIT DOSE* 17GM PACKET PO SCH (09:00)
[2021-04-02] MEDS: LACTOBACILLUS ACIDOPHILUS CAP (BACID) PO SCH ×2 (09:01→20:47)
[2021-04-02] MEDS: levETIRAcetam 250MG TABLET (KEPPRA) PO SCH ×2 (09:01→20:47)
[2021-04-02] MEDS: TAMSULOSIN 0.4 MG CAP PO SCH (09:01)
[2021-04-02] MEDS: PANTOPRAZOLE 40MG TAB (PROTONIX) PO SCH (09:01)
[2021-04-02] MEDS: APIXABAN 5 MG TAB (ELIQUIS) PO SCH ×2 (09:01→20:47)
[2021-04-02] MEDS: CIPROFLOXACIN 250MG TAB PO SCH ×2 (09:08→18:03)
[2021-04-02] MEDS: ACETAMINOPHEN TAB 650MG DOSE (2X325MG) PO PRN ×2 (12:52→20:48)
--- NOTE | 2021-04-02 13:58 | IPNPDOC ---
Text Note Date of Service The patient was seen on 04/02/21. NOTE Subjective: -has waxing and waning confusion, which I suspect may be baseline, this morning is completely oriented -Otherwise without complaints this morning -had soft BPs overnight, i/s/o diuretics Objective: VITAL SIGNS: Please see below. GENERAL: Pleasant and cooperative. No acute distress. HEENT: PERRL. Extraocular movements intact. Clear conjunctiva. Very poor dentiti on, Long ornelas, disheveled. CARDIOVASCULAR: Irregular rate and rhythm. No murmurs, rubs, or gallops LUNGS: No wheezing, continues to be diminished in the right posterior lung field, L side with some crackles ABDOMEN: Normoactive bowel sounds, soft, nontender, nondistended. Colostomy at R abdomen with some liquid stool NEUROLOGICAL: Alert and oriented times three. Cranial nerves II through XII jen sly intact. 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 Adrenal glands are stable with small adenomas and hyperplastic changes again noted. Kidneys demonstrate stable polycystic kidney disease without acute perinephric stranding, hydronephrosis or nephrolithiasis. There is evidence for prior partial colectomy with ostomy via the right anterior abdominal wall without evidence for bowel obstruction or obvious acute focal inflammatory changes. Postsurgical changes in the anterior abdominal wall with soft tissue density, fat stranding, and possible small residual seroma are again noted and similar to prior examination. Pelvis demonstrates relatively stable postsurgical changes in the presacral and perirectal space. The bladder demonstrates stable diverticula without acute process. No ascites. No free air. Musculoskeletal structures are intact and without acute osseous abnormality. IMPRESSION: 1. Stable chronic and postsurgical changes as described above. 2. No evidence for acute bowel obstruction or obvious acute inflammatory process. 03/30 CT chest: Large right pleural effusion with underlying elements of passive atelectasis/partial collapse to the right middle lobe and right lower lobe. Minimal posterior basilar atelectasis and pleural reaction at the left base. The mediastinum demonstrates atherosclerotic changes to the thoracic aorta and coronary arteries with cardiomegaly and pacemaker. No pericardial effusion. Musculoskeletal structures are intact. IMPRESSION: 1. Large right pleural effusion with associated atelectasis/partial collapse to the right middle lobe and right lower lobe. Minimal right upper lobe atelectasis and trace left basilar changes along with cardiomegaly. Differential diagnosis includes CHF. [id number] CXR: Moderate to large right pleural effusion with associated elements of consolidation/atelectasis. Cardiomegaly and pulmonary vascular congestion is also suspected. Left hemithorax is relatively well aerated and without focal consolidation or effusion. There is no evidence for pneumothorax. Pacemaker in stable position. Skeletal structures intact. IMPRESSION: 1. Cardiomegaly and evidence for pulmonary vascular congestion. 2. Moderate to large right pleural effusion and right lower lobe consolidation. 03/31 Ct head: No evidence of acute bleeding, no mass effect or acute infarction 03/31 Ct C-spine: Degenerative disease, chronic spondylosis. No acute fracture or subluxation 03/31 CT T-spine: Degenerative spondylosis. No evidence for acute trauma/injury. 03/31 CT L spine: Multilevel degenerative spondylosis. No evidence for acute fracture/compression injury or subluxation. 03/31 XR of pelvis: Known prior fractures of the right inferior ramus and pubis. No new acute fractures or dislocation 03/31 CXR: stable large R pleural effusion and air space disease. No rib fractures noted ASSESSMENT: 85-year-old M with past medical history of HTN, diastolic CHF, COPD who presented with constipation/low colostomy output for two days and dyspnea i/s/o stopping his lasix and is now admitted for HFpEF exacerbation. PLAN: Acute on chronic diastolic CHF i/s/o medication non compliance -DC diuretics for diuretic holiday today. will resume PO diuretics tomorrow -strict I/Os -2g, 2L/24h diet -daily weights -daily CMP and mag -telemetry Encephalopathy: has waxing and waning low level confusion, which I suspect may be baseline. Improved. Will optimize for potential metabolic element -Unlikely 2/2 infection without leukocytosis, fever or clinical suspicion, though UA was positive this AM and is s/p pettit. So will place on empiric PO cipro. Day 1 -CT head was without acute pathology -hypoxemia is at recent baseline of 2L -On careview, redirect Low ostomy output, suspect constipation: resolved -CT A/P did not show obstructive pathology -Continue miralax QD Chronic AFib w/ PPM -c/w eliquis and atenolol Seizure disorder: -continue home keppra HLD: - continue home statin COPD not on 02: no evidence of exacerbation. LIANNA not on CPAP: -supplemental O2 for nocturnal hypoxemia History of DM -diet controlled -daily BMP GERD: -protonix daily DVT ppx- on full dose eliquis DC planning: PT/OT, ARU screen, PFS consulted for safe discharge planning VS,Fishbone, I+O VS, Fishbone, I+O Laboratory Tests 04/02/21 00:38 04/02/21 06:56 Vital Signs Date Time Temp Pulse Resp B/P (MAP) Pulse Ox O2 Delivery O2 Flow Rate FiO2 04/02/21 07:22 96 Nasal Cannula 2.0 04/02/21 05:02 96/56 (69) 04/02/21 05:00 97.5 65 24 I&O- Last 24 Hours up to 6 AM 04/02/21 06:00 Intake Total 1110 ml Output Total 1125 ml Balance -15 ml NICOLASA GONZALEZ MD Apr 02, 2021 08:59
[2021-04-02 14:00] VITALS: BP 93/62
[2021-04-02 14:40] LABS: BLOOD UREA NITROGEN 33 MG/DL (7-18); CALCIUM LEVEL 9.1 MG/DL (8.8-10.2); CARBON DIOXIDE LEVEL 42 MEQ/L (21-32); CHLORIDE LEVEL 96 MEQ/L (98-107); CREATININE FOR GFR 1.13 MG/DL (0.70-1.30); GLOMERULAR FILTRATION RATE > 60.0 (>35); GLUCOSE, FASTING 151 MG/DL (70-100); POTASSIUM SERUM 4.2 MEQ/L (3.5-5.1); SODIUM LEVEL 141 MEQ/L (136-145)
[2021-04-02 17:40] VITALS: BP 102/60
[2021-04-02 20:15] VITALS: BP 100/64
[2021-04-02] MEDS: RAMELTEON 8 MG TAB (ROZEREM) PO PRN (20:47)
[2021-04-02] MEDS: PRAVASTATIN 20 MG TAB PO SCH (20:47)
[2021-04-02] MEDS: VANICREAM MOISTURIZING SKIN CREAM 113GM TUBE TOP PRN (20:49)
[2021-04-03] MEDS: CIPROFLOXACIN 250MG TAB PO SCH (05:43)
[2021-04-03] MEDS: ACETAMINOPHEN TAB 650MG DOSE (2X325MG) PO PRN (05:43)
[2021-04-03 06:00] VITALS: BP 104/66
[2021-04-03 06:36] LABS: HEMATOCRIT 40.4 % (42.0-52.0); HEMOGLOBIN 12.3 g/dl (13.5-17.5); MEAN CORPUSCULAR HEMOGLOBIN 31.3 pg (27.0-33.0); MEAN CORPUSCULAR HGB CONC 30.4 g/dl (32.0-36.5); MEAN CORPUSCULAR VOLUME 102.8 fl (80.0-96.0); PLATELET COUNT, AUTOMATED 120 10^3/uL (150-450); RED BLOOD COUNT 3.93 10^6/uL (4.30-6.10); WHITE BLOOD COUNT 5.2 10^3/uL (4.0-10.0)
[2021-04-03 07:10] LABS: ALBUMIN 2.7 GM/DL (3.2-5.2); ALT/SGPT 15 U/L (12-78); BILIRUBIN,TOTAL 0.6 MG/DL (0.2-1.0); BLOOD UREA NITROGEN 31 MG/DL (7-18); CALCIUM LEVEL 9.3 MG/DL (8.8-10.2); CARBON DIOXIDE LEVEL 44 MEQ/L (21-32); CHLORIDE LEVEL 95 MEQ/L (98-107); CREATININE FOR GFR 1.04 MG/DL (0.70-1.30); GLOMERULAR FILTRATION RATE > 60.0 (>35); GLUCOSE, FASTING 108 MG/DL (70-100); MAGNESIUM LEVEL 2.1 MG/DL (1.8-2.4); POTASSIUM SERUM 4.5 MEQ/L (3.5-5.1); SODIUM LEVEL 138 MEQ/L (136-145); TOTAL PROTEIN 6.7 GM/DL (6.4-8.2)
[2021-04-03] MEDS: BUDESONIDE 0.5 MG/2 ML INHALATION SUSPENSION INH SCH (07:37)
[2021-04-03] MEDS: LACTOBACILLUS ACIDOPHILUS CAP (BACID) PO SCH (08:10)
[2021-04-03] MEDS: APIXABAN 5 MG TAB (ELIQUIS) PO SCH (08:11)
[2021-04-03] MEDS: PANTOPRAZOLE 40MG TAB (PROTONIX) PO SCH (08:11)
[2021-04-03] MEDS: MIRALAX *UNIT DOSE* 17GM PACKET PO SCH (08:11)
[2021-04-03] MEDS: HumaLOG INSULIN (NovoLOG) PER UNIT SC SCH ×2 (08:11→13:13)
[2021-04-03] MEDS: levETIRAcetam 250MG TABLET (KEPPRA) PO SCH (08:13)
[2021-04-03] MEDS: TAMSULOSIN 0.4 MG CAP PO SCH (08:13)
[2021-04-03 08:14] VITALS: BP 113/67
[2021-04-03] MEDS: atenoloL 25 MG TAB PO SCH (08:14)
[2021-04-03] MEDS: NYSTATIN 100,000 UNITS/GM TOPICAL PWD 15 GM TOP SCH (08:15)
[2021-04-03] MEDS: VANICREAM MOISTURIZING SKIN CREAM 113GM TUBE TOP PRN (08:16)
[2021-04-03] MEDS ORDERED: FUROSEMIDE 40 MG TAB PO SCH (09:00)
[2021-04-03] MEDS ORDERED: MIRA1POW3 PO (10:53)
[2021-04-03] MEDS ORDERED: FURO40TA2 PO (13:35)
--- NOTE | 2021-04-03 13:46 | DS.PDOC ---
Discharge Summary General Date of Admission Mar 30, 2021 at 14:58 Date of Discharge 04/03/2021 Attending Physician: INCOLASA GONZALEZ MD Discharge Summary PROCEDURES PERFORMED DURING STAY: None ADMITTING DIAGNOSES: CHF exacerbation DISCHARGE DIAGNOSES: Acute on chronic diastolic CHF Constipation Encephalopathy c/w delirium Rectal cancer s/p chemo-radiation and surgery s/p colostomy Chronic Afib on eliquis COPD LIANNA not on CPAP HTN HLD peripheral polyneuropathy and LE wounds followed by Dr. Huynh CKD3 Obesity Seizures COMPLICATIONS/CHIEF COMPLAINT: CHF HISTORY OF PRESENT ILLNESS: 85M with a history of rectal cancer s/p chemo-radiation and surgery s/p colostomy, Afib on eliquis, COPD on 2-3L at baseline, LIANNA not on CPAP, HTH, HLD, peripheral polyneuropathy and LE wounds followed by Dr. Huynh, chronic diastolic CHF, CKD3, obesity, seizures, who spent time in the ARU for intensive rehab in 05/2020 who now returned to the ED reporting no significant ostomy output for 2 days and SOB. He otherwise denied any chest pain, jaw or left arm pain, palpitations, abdominal pain, nausea, emesis, dysuria, fever, chills. 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 At baseline, he ambulates with a walker. HOSPITAL COURSE: In the ED, he was hypertensive but otherwise breathing comfortably on 2L and was afebrile. WBC was 4.4, hgb 12.9, platelets 129, na 144, K 3.8, Cr 0.92, proBNP 4181, troponin 0.[address] chest revealed a large R sided pleural effusion with associated RML and RLL lung collapse, after a CXR had showed cardiomegaly and pulmonary vascular congestion. CT A/P showed previously noted partial colectomy without evidence of obstructive pathology. Covid-19 was negative on respiratory panel. He was admitted for a HFpEF exacerbation and his course was c/b some encephalopathy that precipitated a fall out of bed, thankfully without sustaining any fractures. He otherwise had IV diuresis with improvement in his SOB with eventual return to PO diuretic therapy. He is now being discharged to [facility] ARU for physical deconditioning and unsteady gait while on lasix 40 PO BID. Of note, he has a R pleural effusion that had grown larger than prior with diuretic non-compliance. DISCHARGE MEDICATIONS: Please see below. ALLERGIES: Please see below. PHYSICAL EXAMINATION ON DISCHARGE: VITAL SIGNS: Please see below. GENERAL: Pleasant and cooperative. No acute distress. HEENT: PERRL. Extraocular movements intact. Clear conjunctiva. Very poor dentition, Long ornelas, disheveled. CARDIOVASCULAR: Irregular rate and rhythm. No murmurs, rubs, or gallops LUNGS: No wheezing, diminished ABDOMEN: Normoactive bowel sounds, soft, nontender, nondistended. Colostomy at R abdomen with some liquid stool NEUROLOGICAL: Alert and oriented times three. Cranial nerves II through XII grossly intact. Sensation decreased in glove and stocking pattern, 5/5 strength in all 4 extremities EXTREMITIES: WWP, 2+ LE pitting edema LABORATORY DATA: Please see below. IMAGIN/31 CT A/P: Liver, spleen, pancreas, and gallbladder are essentially normal for noncontrast evaluation. Adrenal glands are stable with small adenomas and hyperplastic changes again noted. Kidneys demonstrate stable polycystic kidney disease without acute perinephric stranding, hydronephrosis or nephrolithiasis. There is evidence for prior partial colectomy with ostomy via the right anterior abdominal wall without evidence for bowel obstruction or obvious acute focal inflammatory changes. Postsurgical changes in the anterior abdominal wall with soft tissue density, fat stranding, and possible small residual seroma are again n oted and similar to prior examination. Pelvis demonstrates relatively stable postsurgical changes in the presacral and perirectal space. The bladder demonstrates stable diverticula without acute pro cess. No ascites. No free air. Musculoskeletal structures are intact and without acute osseous abnormality. IMPRESSION: 1. Stable chronic and postsurgical changes as described above. 2. No evidence for acute bowel obstruction or obvious acute inflammatory process. 03/30 CT chest: Large right pleural effusion with underlying elements of passive atelectasis/partial collapse to the right middle lobe and right lower lobe. Minimal posterior basilar atelectasis and pleural reaction at the left base. The mediastinum demonstrates atherosclerotic changes to the thoracic aorta and coronary arteries with cardiomegaly and pacemaker. No pericardial effusion. Musculoskeletal structures are intact. IMPRESSION: 1. Large right pleural effusion with associated atelectasis/partial collapse to the right middle lobe and right lower lobe. Minimal right upper lobe atelectasis and trace left basilar changes along with cardiomegaly. Differential diagnosis includes CHF. [id number] CXR: Moderate to large right pleural effusion with associated elements of consolidation/atelectasis. Cardiomegaly and pulmonary vascular congestion is also suspected. Left hemithorax is relatively well aerated and without focal consolidation or effusion. There is no evidence for pneumothorax. Pacemaker in stable position. Skeletal structures intact. IMPRESSION: 1. Cardiomegaly and evidence for pulmonary vascular congestion. 2. Moderate to large right pleural effusion and right lower lobe consolidation. 03/31 Ct head: No evidence of acute bleeding, no mass effect or acute infarction 03/31 Ct C-spine: Degenerative disease, chronic spondylosis. No acute fracture or subluxation 03/31 CT T-spine: Degenerative spondylosis. No evidence for acute trauma/injury. 03/31 CT L spine: Multilevel degenerative spondylosis. No evidence for acute fracture/compression injury or subluxation. 03/31 XR of pelvis: Known prior fractures of the right inferior ramus and pubis. No new acute fractures or dislocation 03/31 CXR: stable large R pleural effusion and air space disease. No rib fractures noted PROGNOSIS: Good with medication compliance ACTIVITY: As tolerated. DIET: 2g sodium, 2L/24h DISCHARGE PLAN: ARU DISPOSITION: ARU DISCHARGE INSTRUCTIONS: medicine will be following while in the ARU ITEMS TO FOLLOWUP ON ON OUTPATIENT: CHF DISCHARGE CONDITION: Stable TIME SPENT ON DISCHARGE: 40 minutes. Vital Signs/I&Os Vital Signs Date Time Temp Pulse Resp B/P (MAP) Pulse Ox O2 Delivery O2 Flow Rate FiO2 04/03/21 09:00 2.0 04/03/21 08:14 68 113/67 04/03/21 06:00 98.0 18 94 Nasal Cannula I&O- Last 24 Hours up to 6 AM 04/03/21 06:00 Intake Total 2040 ml Output Total 510 ml Balance 1530 ml Laboratory Data Labs 24H Laboratory Tests 2 04/02/21 13:45: Anion Gap 3L, Glomerular Filtration Rate > 60.0, Calcium Level 9.1 04/02/21 17:10: Bedside Glucose (Misc Panel) 127H 04/02/21 20:13: Bedside Glucose (Misc Panel) 113H 04/03/21 06:17: Anion Gap , Glomerular Filtration Rate > 60.0, Calcium Level 9.3, Nucleated Red Blood Cells % (auto) 0.0, Magnesium Level 2.1, Total Bilirubin 0.6, Aspartate Amino Transf (AST/SGOT) 18, Alanine Aminotransferase (ALT/SGPT) 15, Alkaline Phosphatase 61, Total Protein 6.7, Albumin 2.7L, Albumin/Globulin Ratio 0.7 04/03/21 11:28: Bedside Glucose (Misc Panel) 130H CBC/BMP Laboratory Tests 04/02/21 13:45 04/03/21 06:17 FSBS Laboratory Tests Test 04/02/21 17:10 04/02/21 20:13 04/03/21 11:28 Range/Units Bedside Glucose (Misc Panel) 127 113 130 83-110 MG/DL Microbiology Microbiology 04/02/21 Urine Culture - Final, Complete 03/30/21 Blood Culture - Preliminary, Resulted No Growth after 72 hours. All specime... 03/30/21 Blood Culture - Preliminary, Resulted No Growth after 72 hours. All specime... Discharge Medications Scheduled Apixaban (Eliquis) 5 Mg Tablet, 5 MG PO BID, (Reported) Atenolol (Atenolol) 25 Mg Tablet, 25 MG PO DAILY, (Reported) Calcium Carbonate/Vitamin D3 (Oyster Shell Calcium-Vit D Tab) 1 Each Tablet, 1 TAB PO DAILY, (Reported) Esomeprazole Magnesium (Esomeprazole Magnesium) 40 Mg Capsule.dr, 40 MG PO DAILY, (Reported) Furosemide (Furosemide) 40 Mg Tablet, 40 MG PO DAILY, (Reported) L.acidoph/L.bulg/B.bif/S.therm (Paris-Bid Caplet) 1 Each Tablet, 1 TAB PO BID, (Reported) Levetiracetam (Levetiracetam) 750 Mg Tablet, 750 MG PO BID, (Reported) Polyethylene Glycol 3350 (Miralax) 17 Gm Powd.pack, 1 PKT PO DAILY Pravastatin Sodium (Pravastatin Sodium) 40 Mg Tablet, 40 MG PO QHS, (Reported) Tamsulosin HCl (Flomax) 0.4 Mg Capsule, 0.4 MG PO DAILY, (Reported) Allergies Coded Allergies: No Known Allergies (Unverified , 05/20/19) NICOLASA GONZALEZ MD Apr 03, 2021 13:46
--- NOTE | 2021-04-03 13:47 | IPNPDOC ---
Text Note Date of Service The patient was seen on 04/03/21. NOTE ENTERED IN ERROR. See DC summary as he is being discharged to the ARU. VS,Antonia, I+O VS, Antonia, I+O Laboratory Tests 04/02/21 13:45 04/03/21 06:17 Vital Signs Date Time Temp Pulse Resp B/P (MAP) Pulse Ox O2 Delivery O2 Flow Rate FiO2 04/03/21 08:14 68 113/67 04/03/21 06:00 98.0 18 94 Nasal Cannula 2.0 I&O- Last 24 Hours up to 6 AM 04/03/21 06:00 Intake Total 2040 ml Output Total 510 ml Balance 1530 ml NICOLASA GONZALEZ MD Apr 03, 2021 10:02
== END 2021-04-03 15:57 | DRG 291 ==
LOC: EDBD 11:27 → M ED 11:27 → M ED INP 14:58 → ENRESERV 16:28 → M MSPAV 18:06
PROVIDERS: ADMIT Internal Medicine; ATTEND Internal Medicine
DX: I13.0 Hypertensive heart and chronic kidney disease with heart failure and stage 1 through stage 4 chronic kidney disease, or unspecified chronic kidney disease (principal); I50.33 Acute on chronic diastolic (congestive) heart failure; I48.20 Chronic atrial fibrillation, unspecified; G93.40 Encephalopathy, unspecified; Z85.048 Personal history of other malignant neoplasm of rectum, rectosigmoid junction, and anus; Z92.3 Personal history of irradiation; Z92.21 Personal history of antineoplastic chemotherapy; Z91.14 Patient's other noncompliance with medication regimen; Z93.3 Colostomy status; E78.5 Hyperlipidemia, unspecified; J44.9 Chronic obstructive pulmonary disease, unspecified; G47.33 Obstructive sleep apnea (adult) (pediatric); E11.22 Type 2 diabetes mellitus with diabetic chronic kidney disease; K21.9 Gastro-esophageal reflux disease without esophagitis; Z79.01 Long term (current) use of anticoagulants; Z79.899 Other long term (current) drug therapy; H35.30 Unspecified macular degeneration; Z72.3 Lack of physical exercise; E11.42 Type 2 diabetes mellitus with diabetic polyneuropathy; G40.909 Epilepsy, unspecified, not intractable, without status epilepticus; N18.30 Chronic kidney disease, stage 3 unspecified; Z20.822 Contact with and (suspected) exposure to COVID-19; E66.9 Obesity, unspecified; R26.81 Unsteadiness on feet

== ENCOUNTER → 2021-05-15 | Outpatient (REF) | payer MEDICARE, OTHER ==
[~2021-05-15] MED LIST changes: +BUDE0.5S6 INH; +COMBAER6 INH; -LEVO500T3 PO; +LEVO500T4 PO; +MIRA1POW3 PO; +POTA-149; +POTA-149 PO; -POTA10TA16; -POTA10TA16 PO
== END ==
LOC: M LAB REF 13:16
PROVIDERS: ATTEND Nurse Practitioner Family
DX: E83.42 Hypomagnesemia (principal)

== ENCOUNTER → 2021-05-29 | Outpatient (REF) | payer MEDICARE, OTHER | LOC: M LAB REF 12:27 | PROVIDERS: ATTEND Internal Medicine | DX: N39.0 Urinary tract infection, site not specified (principal) ==

== ENCOUNTER → 2021-06-26 | Outpatient (CLI) | payer MEDICARE, OTHER | LOC: M SOG 08:30 | PROVIDERS: ATTEND Physician Assistant | DX: M19.031 Primary osteoarthritis, right wrist (principal); M19.032 Primary osteoarthritis, left wrist; M25.532 Pain in left wrist; M25.531 Pain in right wrist ==

== ENCOUNTER 2021-07-13 06:04 | Day surgery (SDC) | payer MEDICARE, OTHER ==
[~2021-07-13] VITALS: Ht 170.2 cm; Wt 89.8 kg
[~2021-07-13 06:04] MED LIST changes: +LR 1,000 ML IV ONE
[2021-07-13] MEDS ORDERED: fentaNYL 100 MCG/2 ML INJECTION As Ordered ONE (07:01)
[2021-07-13] MEDS ORDERED: LIDOCAINE 2% 100MG/5ML SDV (FOR ANES.) As Ordered ONE (07:03)
[2021-07-13] MEDS ORDERED: ONDANSETRON 4MG/2ML VIAL As Ordered ONE (07:03)
[2021-07-13] MEDS ORDERED: propofoL 200 MG/20 ML VIAL As Ordered ONE (07:03)
[2021-07-13] MEDS ORDERED: dexameTHASONE 4 MG/ML 1ML VIAL (J1100 PER 1MG) As Ordered ONE (07:03)
[2021-07-13] MEDS ORDERED: BUPIVACAINE HCL 0.25% 30ML VIAL As Ordered ONE (07:12)
[2021-07-13] MEDS ORDERED: PHENYLephrine 500MCG 5ML (100MCG/ML) SYRINGE As Ordered ONE (08:05)
[2021-07-13] MEDS ORDERED: ePHEDrine SULFATE 25 MG/5 ML(5MG/ML) SYRINGE As Ordered ONE (08:06)
[2021-07-13] MEDS ORDERED: LR 1,000 ML IV SCH (08:35)
[2021-07-13] MEDS ORDERED: fentaNYL 100 MCG/2 ML INJECTION IV PRN (08:35)
[2021-07-13] MEDS ORDERED: METOCLOPRAMIDE INJ 10MG/2ML VIAL (J2765 PER 1) IV PRN (08:35)
[2021-07-13] MEDS ORDERED: ONDANSETRON 4MG/2ML VIAL IV PRN (08:35)
[2021-07-13] MEDS ORDERED: ACETAMINOPHEN TAB 650MG DOSE (2X325MG) PO PRN (08:40)
[2021-07-13 09:50] VITALS: BP 128/66
== END 2021-07-13 09:55 | disposition home or self-care (01) ==
LOC: M SDC 06:04
PROVIDERS: ATTEND Orthopaedic Surgery Hand Surgery
DX: G56.02 Carpal tunnel syndrome, left upper limb (principal); I48.91 Unspecified atrial fibrillation; E78.5 Hyperlipidemia, unspecified; E11.9 Type 2 diabetes mellitus without complications; J44.9 Chronic obstructive pulmonary disease, unspecified; G40.909 Epilepsy, unspecified, not intractable, without status epilepticus; F32.9 Major depressive disorder, single episode, unspecified; Z87.891 Personal history of nicotine dependence; Z95.0 Presence of cardiac pacemaker; Z79.01 Long term (current) use of anticoagulants; Z92.3 Personal history of irradiation; Z85.048 Personal history of other malignant neoplasm of rectum, rectosigmoid junction, and anus; D64.9 Anemia, unspecified; K21.9 Gastro-esophageal reflux disease without esophagitis; Z79.899 Other long term (current) drug therapy
CPT/HCPCS: 29848; J1100; J2370; J2405; J3010

== ENCOUNTER → 2021-07-27 | Outpatient (CLI) | payer MEDICARE, OTHER ==
[~2021-07-27] MED LIST changes: -LR 1,000 ML IV ONE
== END ==
LOC: M LABSMTC 10:39
PROVIDERS: ATTEND Anesthesiology
DX: Z01.812 Encounter for preprocedural laboratory examination (principal); Z20.822 Contact with and (suspected) exposure to COVID-19

== ENCOUNTER 2021-08-01 06:35 | Day surgery (SDC) | payer MEDICARE, OTHER ==
[~2021-08-01] VITALS: Ht 170.2 cm; Wt 89.8 kg
[~2021-08-01 06:35] MED LIST changes: +LR 1,000 ML IV ONE
[2021-08-01] MEDS ORDERED: fentaNYL 100 MCG/2 ML INJECTION As Ordered ONE (07:15)
[2021-08-01] MEDS ORDERED: LIDOCAINE 2% 100MG/5ML SDV (FOR ANES.) As Ordered ONE (07:15)
[2021-08-01] MEDS ORDERED: ONDANSETRON 4MG/2ML VIAL As Ordered ONE (07:15)
[2021-08-01] MEDS ORDERED: propofoL 200 MG/20 ML VIAL As Ordered ONE (07:15)
[2021-08-01] MEDS ORDERED: ALBUTEROL SULFATE 2.5 MG/0.5 ML INH NEB SOLN As Ordered ONE (07:26)
[2021-08-01] MEDS ORDERED: BUPIVACAINE HCL 0.25% 30ML VIAL As Ordered ONE (07:40)
[2021-08-01] MEDS ORDERED: ALBUTEROL SULFATE 2.5 MG/0.5 ML INH NEB SOLN INH ONE (07:50)
[2021-08-01] MEDS ORDERED: ONDANSETRON 4MG/2ML VIAL IV PRN (10:15)
[2021-08-01] MEDS ORDERED: ACETAMINOPHEN TAB 650MG DOSE (2X325MG) PO PRN (10:15)
[2021-08-01] MEDS ORDERED: LR 1,000 ML IV SCH (10:15)
[2021-08-01] MEDS ORDERED: fentaNYL 100 MCG/2 ML INJECTION IV PRN (10:15)
[2021-08-01 10:52] VITALS: BP 116/60
== END 2021-08-01 12:08 | disposition home or self-care (01) ==
LOC: M SDC 06:35
PROVIDERS: ATTEND Orthopaedic Surgery Hand Surgery
DX: G56.01 Carpal tunnel syndrome, right upper limb (principal); E11.9 Type 2 diabetes mellitus without complications; I10 Essential (primary) hypertension; E78.5 Hyperlipidemia, unspecified; G47.33 Obstructive sleep apnea (adult) (pediatric); J44.9 Chronic obstructive pulmonary disease, unspecified; Z79.01 Long term (current) use of anticoagulants; Z95.0 Presence of cardiac pacemaker; Z87.891 Personal history of nicotine dependence; I48.91 Unspecified atrial fibrillation; K21.9 Gastro-esophageal reflux disease without esophagitis; Z92.21 Personal history of antineoplastic chemotherapy; Z92.3 Personal history of irradiation; Z79.899 Other long term (current) drug therapy
CPT/HCPCS: 29848; J2405; J3010

== ENCOUNTER → 2021-08-02 | Outpatient (CLI) | payer MEDICARE, OTHER ==
[~2021-08-02] MED LIST changes: -LR 1,000 ML IV ONE
== END ==
LOC: M ADAMS 12:23
PROVIDERS: ATTEND Physician Assistant
DX: J90 Pleural effusion, not elsewhere classified (principal); I51.7 Cardiomegaly

== ENCOUNTER → 2021-08-20 | Outpatient (CLI) | payer MEDICARE, OTHER | LOC: M WUC 13:16 | PROVIDERS: ATTEND Physician Assistant Medical | DX: J90 Pleural effusion, not elsewhere classified (principal); J98.11 Atelectasis; I51.7 Cardiomegaly; Z95.0 Presence of cardiac pacemaker ==

== ENCOUNTER 2021-10-30 08:21 | Inpatient (IN) | payer OTHER ==
[~2021-10-30] VITALS: Ht 170.2 cm; Wt 82.0 kg
[~2021-10-30 08:21] MED LIST changes: +LEVO1TAB39 PO; -LEVO500T4 PO
[2021-10-30 08:59] LABS: BASO % 0.7 % (0.0-1.0); HEMATOCRIT 34.3 % (42.0-52.0); HEMOGLOBIN 10.4 g/dl (13.5-17.5); LYMPH # 0.6 10^3/uL (1.5-5.0); LYMPH % 15.6 % (24.0-44.0); MEAN CORPUSCULAR HEMOGLOBIN 29.9 pg (27.0-33.0); MEAN CORPUSCULAR HGB CONC 30.3 g/dl (32.0-36.5); MEAN CORPUSCULAR VOLUME 98.6 fl (80.0-96.0); MONO # 0.4 10^3/uL (0.0-0.8); MONO % 9.4 % (2.0-8.0); NEUTROPHILS # 2.9 10^3/uL (1.5-8.5); NEUTROPHILS % 72.8 % (36.0-66.0); PLATELET COUNT, AUTOMATED 170 10^3/uL (150-450); RED BLOOD COUNT 3.48 10^6/uL (4.30-6.10)
[2021-10-30 09:11] LABS: VENOUS BASE EXCESS 5.3 (-2.0-2.0); VENOUS HCO3 33.6 MEQ/L (23.0-27.0); VENOUS O2 SATURATION 93.9 % (60.0-80.0); VENOUS PARTIAL PRESSURE CO2 70.1 mmHg (38.0-50.0); VENOUS PARTIAL PRESSURE O2 76.7 mmHg (30.0-50.0); VENOUS PH 7.298 UNITS (7.330-7.430); VENOUS STANDARD HCO3 29.1 MEQ/L; VENOUS TOTAL CO2 35.7 MEQ/L (24.0-28.0)
[2021-10-30 09:40] LABS: ALBUMIN 2.6 GM/DL (3.2-5.2); BILIRUBIN,DIRECT 0.3 MG/DL (0.0-0.2); BILIRUBIN,TOTAL 0.5 MG/DL (0.2-1.0); CALCIUM LEVEL 8.9 MG/DL (8.8-10.2); CREATININE FOR GFR 1.23 MG/DL (0.70-1.30); GLOMERULAR FILTRATION RATE 59.5 (>35); POTASSIUM SERUM 3.6 MEQ/L (3.5-5.1); THYROID STIMULATING HORMONE 0.57 uIU/ML (0.358-3.740)
[2021-10-30 10:11] LABS: RSV AMPLIFICATION NEGATIVE (NEGATIVE)
[2021-10-30] MEDS ORDERED: FURO20TA2 PO (13:11)
[2021-10-30] MEDS ORDERED: ACET650T15 PO (13:11)
[2021-10-30] MEDS ORDERED: ELIQ5TAB PO (13:11)
[2021-10-30] MEDS ORDERED: PRAV40TA2 PO (13:11)
[2021-10-30] MEDS ORDERED: ESOM40CA35 PO (13:11)
[2021-10-30] MEDS ORDERED: ATEN25TA PO (13:11)
[2021-10-30] MEDS ORDERED: TAMS1CAP17 PO (13:11)
[2021-10-30] MEDS ORDERED: OYST500T10 PO (13:11)
[2021-10-30] MEDS ORDERED: LEVE750T5 PO (13:11)
[2021-10-30] MEDS ORDERED: HOME MED LIST COMPLETE! XX SCH (13:15)
[2021-10-30] MEDS: atenoloL 25 MG TAB PO SCH (15:31)
[2021-10-30] MEDS: FUROSEMIDE 40MG/4ML VIAL (J1940) IV SCH (15:31)
[2021-10-30] MEDS: PANTOPRAZOLE 40MG TAB (PROTONIX) PO SCH (15:31)
[2021-10-30 16:52] VITALS: BP 128/70
[2021-10-30 20:00] VITALS: BP 114/68
[2021-10-30] MEDS: ACETAMINOPHEN 650MG ER TAB (TYLENOL ARTHRITIS) PO SCH (20:52)
[2021-10-30] MEDS: APIXABAN 5 MG TAB (ELIQUIS) PO SCH ×3 (20:53→21:59)
[2021-10-30] MEDS: PRAVASTATIN 20 MG TAB PO SCH (20:53)
[2021-10-30] MEDS: levETIRAcetam 250MG TABLET (KEPPRA) PO SCH (20:53)
[2021-10-30] MEDS: TAMSULOSIN 0.4 MG CAP PO SCH (20:53)
[2021-10-31] VITALS: BP 97/55
[2021-10-31 04:00] VITALS: BP 98/56
[2021-10-31 06:32] LABS: HEMATOCRIT 36.1 % (42.0-52.0); HEMOGLOBIN 10.7 g/dl (13.5-17.5); MEAN CORPUSCULAR HEMOGLOBIN 29.9 pg (27.0-33.0); MEAN CORPUSCULAR HGB CONC 29.6 g/dl (32.0-36.5); MEAN CORPUSCULAR VOLUME 100.8 fl (80.0-96.0); PLATELET COUNT, AUTOMATED 173 10^3/uL (150-450); RED BLOOD COUNT 3.58 10^6/uL (4.30-6.10); WHITE BLOOD COUNT 4.4 10^3/uL (4.0-10.0)
[2021-10-31 07:22] LABS: CALCIUM LEVEL 9.1 MG/DL (8.8-10.2); CREATININE FOR GFR 1.31 MG/DL (0.70-1.30); GLOMERULAR FILTRATION RATE 55.4 (>35); POTASSIUM SERUM 3.8 MEQ/L (3.5-5.1)
[2021-10-31 07:23] VITALS: BP 108/62
[2021-10-31] MEDS: FUROSEMIDE 40MG/4ML VIAL (J1940) IV SCH ×2 (09:27→19:59)
[2021-10-31] MEDS: atenoloL 25 MG TAB PO SCH (09:28)
[2021-10-31] MEDS: ACETAMINOPHEN 650MG ER TAB (TYLENOL ARTHRITIS) PO SCH ×2 (09:28→21:54)
[2021-10-31] MEDS: PANTOPRAZOLE 40MG TAB (PROTONIX) PO SCH (09:28)
[2021-10-31] MEDS: levETIRAcetam 250MG TABLET (KEPPRA) PO SCH ×2 (09:28→21:53)
[2021-10-31] MEDS ORDERED: LEVALBUTEROL 1.25 MG/0.5 ML CONCENTRATE NEB NEB PRN (12:15)
[2021-10-31] MEDS ORDERED: ONDANSETRON 4MG 2ML VIAL IV PRN (12:15)
[2021-10-31 12:26] VITALS: BP 97/54
[2021-10-31 12:49] LABS: ABG BASE EXCESS 5.9 (-2.0-2.0); ABG HCO3 34.4 MEQ/L (22.0-26.0); ABG O2 SATURATION 97.3 % (95.0-99.0); ABG STANDARD HCO3 29.8 MEQ/L (22.0-26.0); ABG TOTAL CO2 36.7 MEQ/L (23.0-31.0); ABG pH (ARTERIAL) 7.292 UNITS (7.350-7.450)
[2021-10-31 12:53] LABS: ABG PARTIAL PRESSURE CO2 72.9 mmHg (35.0-45.0)
[2021-10-31] MEDS: LEVALBUTEROL 1.25 MG/0.5 ML CONCENTRATE NEB NEB SCH ×2 (14:00→18:32)
[2021-10-31] MEDS ORDERED: LIDOCAINE 1% MDV 20ML VIAL As Ordered ONE (14:10)
[2021-10-31 15:14] LABS: PH BODY FLUID 7.472 UNITS (NOT ESTABLISHED); SOURCE, BODY FLUID pH PLEURAL
[2021-10-31 15:42] VITALS: BP 110/60
[2021-10-31 15:48] LABS: APPEARANCE, BODY FLUID TURBID (CLEAR); PLEURAL FL COLOR RED (COLORLESS); SOURCE, BODY FLUID PLEURAL
[2021-10-31] MEDS: PERCOCET 5MG/325MG TAB PO PRN (15:57)
[2021-10-31 16:48] LABS: AMYLASE, BODY FLUID 39 U/L (NOT ESTABLISHED); CHOLESTEROL, BODY FLUID < 50 MG/DL (NOT ESTABLISHED); LDH, BODY FLUID 186 U/L (NOT ESTABLISHED); SOURCE, BODY FLUID ALBUMIN PLEURAL; SOURCE, BODY FLUID AMYLASE PLEURAL; SOURCE, BODY FLUID CHOL PLEURAL; SOURCE, BODY FLUID GLUCOSE PLEURAL; SOURCE, BODY FLUID LDH PLEURAL; SOURCE, BODY FLUID TOT PROTEIN PLEURAL; SOURCE, BODY FLUID TRIG PLEURAL; TOTAL PROTEIN, BODY FLUID 4.3 G/DL (NOT ESTABLISHED); TRIGLYCERIDE, BODY FLUID 16 MG/DL (NOT ESTABLISHED)
[2021-10-31 20:32] VITALS: BP 98/56
[2021-10-31] MEDS: TAMSULOSIN 0.4 MG CAP PO SCH (21:53)
[2021-10-31] MEDS: PRAVASTATIN 20 MG TAB PO SCH (21:54)
[2021-11-01 00:25] VITALS: BP 105/70
[2021-11-01] MEDS: LEVALBUTEROL 1.25 MG/0.5 ML CONCENTRATE NEB NEB SCH ×4 (01:19→18:11)
[2021-11-01 04:00] VITALS: BP 99/56
[2021-11-01 05:50] LABS: ABG BASE EXCESS 9.2 (-2.0-2.0); ABG O2 SATURATION 85.8 % (95.0-99.0); ABG PARTIAL PRESSURE CO2 53.6 mmHg (35.0-45.0); ABG STANDARD HCO3 32.7 MEQ/L (22.0-26.0); ABG TOTAL CO2 36.7 MEQ/L (23.0-31.0); ABG pH (ARTERIAL) 7.433 UNITS (7.350-7.450)
[2021-11-01 05:51] LABS: ABG PARTIAL PRESSURE O2 49.2 mmHg (75.0-100.0)
[2021-11-01 06:09] LABS: BASO % 0.6 % (0.0-1.0); EOS # 0.1 10^3/uL (0.0-0.5); HEMATOCRIT 35.8 % (42.0-52.0); HEMOGLOBIN 10.7 g/dl (13.5-17.5); LYMPH # 0.6 10^3/uL (1.5-5.0); LYMPH % 11.9 % (24.0-44.0); MEAN CORPUSCULAR HEMOGLOBIN 28.8 pg (27.0-33.0); MEAN CORPUSCULAR HGB CONC 29.9 g/dl (32.0-36.5); MEAN CORPUSCULAR VOLUME 96.2 fl (80.0-96.0); MONO # 0.5 10^3/uL (0.0-0.8); MONO % 9.2 % (2.0-8.0); NEUTROPHILS # 3.7 10^3/uL (1.5-8.5); NEUTROPHILS % 76.5 % (36.0-66.0); PLATELET COUNT, AUTOMATED 171 10^3/uL (150-450); RED BLOOD COUNT 3.72 10^6/uL (4.30-6.10); WHITE BLOOD COUNT 4.9 10^3/uL (4.0-10.0)
[2021-11-01 06:25] LABS: ABG BASE EXCESS 9.4 (-2.0-2.0); ABG HCO3 36.4 MEQ/L (22.0-26.0); ABG O2 SATURATION 98.3 % (95.0-99.0); ABG PARTIAL PRESSURE O2 109.1 mmHg (75.0-100.0); ABG STANDARD HCO3 33.2 MEQ/L (22.0-26.0); ABG TOTAL CO2 38.4 MEQ/L (23.0-31.0); ABG pH (ARTERIAL) 7.382 UNITS (7.350-7.450)
[2021-11-01 06:29] LABS: ABG PARTIAL PRESSURE CO2 62.7 mmHg (35.0-45.0)
[2021-11-01 06:42] LABS: CREATININE FOR GFR 1.3 MG/DL (0.70-1.30); GLOMERULAR FILTRATION RATE 55.9 (>35); POTASSIUM SERUM 3.2 MEQ/L (3.5-5.1)
[2021-11-01] MEDS ORDERED: POTASSIUM CHLORIDE 10MEQ SR TABLET PO ONE (08:05)
[2021-11-01 08:21] VITALS: BP 104/68
[2021-11-01 08:38] LABS: MAGNESIUM LEVEL 1.8 MG/DL (1.8-2.4)
[2021-11-01] MEDS: PANTOPRAZOLE 40MG TAB (PROTONIX) PO SCH (08:53)
[2021-11-01] MEDS: FUROSEMIDE 40MG/4ML VIAL (J1940) IV SCH ×2 (08:53→17:00)
[2021-11-01] MEDS: levETIRAcetam 250MG TABLET (KEPPRA) PO SCH ×2 (08:53→21:58)
[2021-11-01] MEDS: atenoloL 25 MG TAB PO SCH (08:54)
[2021-11-01] MEDS: ACETAMINOPHEN 650MG ER TAB (TYLENOL ARTHRITIS) PO SCH ×2 (08:54→21:58)
[2021-11-01] MEDS ORDERED: HEPARIN SOD (PORCINE) 5000UNITS/ML 1ML VIAL/SYRINGE SQ SCH (09:00)
[2021-11-01 12:00] VITALS: BP 102/55
[2021-11-01] MEDS ORDERED: MAG SULF 1GM/100ML (MAG RUN) 1 GM in IV 1 EA IV ONE (12:00)
[2021-11-01 16:00] VITALS: BP 101/59
[2021-11-01 20:00] VITALS: BP 90/52
[2021-11-01] MEDS: TAMSULOSIN 0.4 MG CAP PO SCH (21:58)
[2021-11-01] MEDS: APIXABAN 5 MG TAB (ELIQUIS) PO SCH (21:58)
[2021-11-01] MEDS: PRAVASTATIN 20 MG TAB PO SCH (21:58)
[2021-11-02] VITALS: BP 107/55
[2021-11-02] MEDS: LEVALBUTEROL 1.25 MG/0.5 ML CONCENTRATE NEB NEB SCH ×4 (01:48→19:28)
[2021-11-02 04:00] VITALS: BP 108/63
[2021-11-02 05:35] LABS: BASO % 0.9 % (0.0-1.0); EOS # 0.1 10^3/uL (0.0-0.5); EOS % 2.1 % (0.0-3.0); HEMATOCRIT 34.9 % (42.0-52.0); HEMOGLOBIN 10.2 g/dl (13.5-17.5); LYMPH # 0.6 10^3/uL (1.5-5.0); MEAN CORPUSCULAR HEMOGLOBIN 28.7 pg (27.0-33.0); MEAN CORPUSCULAR HGB CONC 29.2 g/dl (32.0-36.5); MEAN CORPUSCULAR VOLUME 98.3 fl (80.0-96.0); MONO # 0.4 10^3/uL (0.0-0.8); NEUTROPHILS # 3.1 10^3/uL (1.5-8.5); NEUTROPHILS % 72.3 % (36.0-66.0); PLATELET COUNT, AUTOMATED 167 10^3/uL (150-450); RED BLOOD COUNT 3.55 10^6/uL (4.30-6.10); WHITE BLOOD COUNT 4.2 10^3/uL (4.0-10.0)
[2021-11-02 06:20] LABS: CALCIUM LEVEL 8.8 MG/DL (8.8-10.2); CREATININE FOR GFR 1.38 MG/DL (0.70-1.30); GLOMERULAR FILTRATION RATE 52.1 (>35); POTASSIUM SERUM 3.9 MEQ/L (3.5-5.1)
[2021-11-02 07:39] VITALS: BP 100/57
[2021-11-02] MEDS: FUROSEMIDE 20MG/2ML VIAL (J1940) IV SCH ×2 (07:58→16:35)
[2021-11-02] MEDS: levETIRAcetam 250MG TABLET (KEPPRA) PO SCH ×2 (08:12→20:39)
[2021-11-02] MEDS: PANTOPRAZOLE 40MG TAB (PROTONIX) PO SCH (08:12)
[2021-11-02] MEDS: ACETAMINOPHEN 650MG ER TAB (TYLENOL ARTHRITIS) PO SCH ×2 (08:12→20:39)
[2021-11-02] MEDS: APIXABAN 5 MG TAB (ELIQUIS) PO SCH ×2 (08:12→20:39)
[2021-11-02] MEDS: atenoloL 25 MG TAB PO SCH (08:18)
[2021-11-02 09:48] LABS: MAGNESIUM LEVEL 2.1 MG/DL (1.8-2.4)
[2021-11-02 11:33] VITALS: BP 108/60
[2021-11-02 15:38] VITALS: BP 117/74
[2021-11-02 20:00] VITALS: BP 105/58
[2021-11-02] MEDS: TAMSULOSIN 0.4 MG CAP PO SCH (20:39)
[2021-11-02] MEDS: PRAVASTATIN 20 MG TAB PO SCH (20:40)
[2021-11-03] VITALS (7 sets, daily range): BP systolic 90–138; BP diastolic 50–69
[2021-11-03] MEDS: LEVALBUTEROL 1.25 MG/0.5 ML CONCENTRATE NEB NEB SCH ×4 (02:12→19:24)
[2021-11-03 09:03] LABS: BASO % 0.2 % (0.0-1.0); EOS # 0.1 10^3/uL (0.0-0.5); EOS % 2.6 % (0.0-3.0); HEMATOCRIT 36.3 % (42.0-52.0); HEMOGLOBIN 10.9 g/dl (13.5-17.5); LYMPH # 0.6 10^3/uL (1.5-5.0); LYMPH % 12.6 % (24.0-44.0); MEAN CORPUSCULAR HEMOGLOBIN 29.5 pg (27.0-33.0); MEAN CORPUSCULAR VOLUME 98.1 fl (80.0-96.0); MONO # 0.3 10^3/uL (0.0-0.8); MONO % 6.9 % (2.0-8.0); NEUTROPHILS # 3.4 10^3/uL (1.5-8.5); NEUTROPHILS % 73.2 % (36.0-66.0); PLATELET COUNT, AUTOMATED 186 10^3/uL (150-450); WHITE BLOOD COUNT 4.7 10^3/uL (4.0-10.0)
[2021-11-03 09:45] LABS: BLOOD UREA NITROGEN 27 MG/DL (7-18); CALCIUM LEVEL 9.3 MG/DL (8.8-10.2); CARBON DIOXIDE LEVEL 36 MEQ/L (21-32); CHLORIDE LEVEL 99 MEQ/L (98-107); CREATININE FOR GFR 1.13 MG/DL (0.70-1.30); GLOMERULAR FILTRATION RATE > 60.0 (>35); GLUCOSE, FASTING 138 MG/DL (70-100); NT-PRO BNP 3429 PG/ML (<450); POTASSIUM SERUM 3.4 MEQ/L (3.5-5.1); SODIUM LEVEL 139 MEQ/L (136-145)
[2021-11-03] MEDS: FUROSEMIDE 20MG/2ML VIAL (J1940) IV SCH ×2 (09:51→18:15)
[2021-11-03] MEDS: ACETAMINOPHEN 650MG ER TAB (TYLENOL ARTHRITIS) PO SCH ×2 (09:52→21:16)
[2021-11-03] MEDS: atenoloL 25 MG TAB PO SCH (09:52)
[2021-11-03] MEDS: APIXABAN 5 MG TAB (ELIQUIS) PO SCH ×2 (09:53→21:17)
[2021-11-03] MEDS: PANTOPRAZOLE 40MG TAB (PROTONIX) PO SCH (09:53)
[2021-11-03] MEDS: levETIRAcetam 250MG TABLET (KEPPRA) PO SCH ×2 (09:53→21:16)
[2021-11-03] MEDS ORDERED: POTASSIUM CHLORIDE 10MEQ SR TABLET PO ONE (12:00)
[2021-11-03 12:27] LABS: MAGNESIUM LEVEL 1.9 MG/DL (1.8-2.4)
[2021-11-03] MEDS: TAMSULOSIN 0.4 MG CAP PO SCH (21:16)
[2021-11-03] MEDS: PRAVASTATIN 20 MG TAB PO SCH (21:17)
[2021-11-04] MEDS: LEVALBUTEROL 1.25 MG/0.5 ML CONCENTRATE NEB NEB SCH ×4 (02:00→20:28)
[2021-11-04 04:21] VITALS: BP 101/62
[2021-11-04 07:23] LABS: BASO % 0.6 % (0.0-1.0); EOS # 0.1 10^3/uL (0.0-0.5); EOS % 2.6 % (0.0-3.0); HEMATOCRIT 34.9 % (42.0-52.0); HEMOGLOBIN 10.4 g/dl (13.5-17.5); LYMPH # 0.8 10^3/uL (1.5-5.0); LYMPH % 16.5 % (24.0-44.0); MEAN CORPUSCULAR HEMOGLOBIN 29.1 pg (27.0-33.0); MEAN CORPUSCULAR HGB CONC 29.8 g/dl (32.0-36.5); MEAN CORPUSCULAR VOLUME 97.8 fl (80.0-96.0); MONO # 0.5 10^3/uL (0.0-0.8); NEUTROPHILS # 3.4 10^3/uL (1.5-8.5); NEUTROPHILS % 68.5 % (36.0-66.0); PLATELET COUNT, AUTOMATED 183 10^3/uL (150-450); RED BLOOD COUNT 3.57 10^6/uL (4.30-6.10); WHITE BLOOD COUNT 4.9 10^3/uL (4.0-10.0)
[2021-11-04 07:24] VITALS: BP 114/69
[2021-11-04] MEDS ORDERED: ISOVUE-370 76% 100ML VIAL As Ordered ONE (07:45)
[2021-11-04 08:08] LABS: BLOOD UREA NITROGEN 29 MG/DL (7-18); CALCIUM LEVEL 8.7 MG/DL (8.8-10.2); CARBON DIOXIDE LEVEL 41 MEQ/L (21-32); CHLORIDE LEVEL 99 MEQ/L (98-107); CREATININE FOR GFR 1.15 MG/DL (0.70-1.30); GLOMERULAR FILTRATION RATE > 60.0 (>35); GLUCOSE, FASTING 97 MG/DL (70-100); NT-PRO BNP 3714 PG/ML (<450); SODIUM LEVEL 141 MEQ/L (136-145)
[2021-11-04] MEDS ORDERED: ALTEPLASE 2MG/2ML VIAL XX ONE (08:50)
[2021-11-04] MEDS: FUROSEMIDE 20MG/2ML VIAL (J1940) IV SCH ×2 (09:56→17:41)
[2021-11-04] MEDS: PANTOPRAZOLE 40MG TAB (PROTONIX) PO SCH (09:57)
[2021-11-04] MEDS: ACETAMINOPHEN 650MG ER TAB (TYLENOL ARTHRITIS) PO SCH ×2 (09:57→21:33)
[2021-11-04] MEDS: levETIRAcetam 250MG TABLET (KEPPRA) PO SCH ×2 (09:57→21:32)
[2021-11-04] MEDS: APIXABAN 5 MG TAB (ELIQUIS) PO SCH ×2 (09:57→21:32)
[2021-11-04] MEDS: atenoloL 25 MG TAB PO SCH (10:00)
[2021-11-04 12:49] VITALS: BP 103/57
[2021-11-04] MEDS: PERCOCET 5MG/325MG TAB PO PRN (13:53)
[2021-11-04 17:10] VITALS: BP 100/68
[2021-11-04 20:00] VITALS: BP 94/55
[2021-11-04] MEDS: PRAVASTATIN 20 MG TAB PO SCH (21:32)
[2021-11-04] MEDS: TAMSULOSIN 0.4 MG CAP PO SCH (21:33)
[2021-11-05] VITALS (7 sets, daily range): BP systolic 94–110; BP diastolic 52–74
[2021-11-05] MEDS: LEVALBUTEROL 1.25 MG/0.5 ML CONCENTRATE NEB NEB SCH ×4 (02:04→20:54)
[2021-11-05 05:30] LABS: BASO % 0.5 % (0.0-1.0); EOS # 0.1 10^3/uL (0.0-0.5); HEMATOCRIT 36.1 % (42.0-52.0); LYMPH # 0.8 10^3/uL (1.5-5.0); LYMPH % 13.1 % (24.0-44.0); MEAN CORPUSCULAR HEMOGLOBIN 29.2 pg (27.0-33.0); MEAN CORPUSCULAR HGB CONC 30.5 g/dl (32.0-36.5); MEAN CORPUSCULAR VOLUME 95.8 fl (80.0-96.0); MONO # 0.7 10^3/uL (0.0-0.8); MONO % 11.1 % (2.0-8.0); NEUTROPHILS # 4.3 10^3/uL (1.5-8.5); NEUTROPHILS % 72.8 % (36.0-66.0); PLATELET COUNT, AUTOMATED 170 10^3/uL (150-450); RED BLOOD COUNT 3.77 10^6/uL (4.30-6.10); WHITE BLOOD COUNT 5.9 10^3/uL (4.0-10.0)
[2021-11-05 06:39] LABS: BLOOD UREA NITROGEN 30 MG/DL (7-18); CALCIUM LEVEL 8.7 MG/DL (8.8-10.2); CARBON DIOXIDE LEVEL 41 MEQ/L (21-32); CHLORIDE LEVEL 95 MEQ/L (98-107); CREATININE FOR GFR 1.08 MG/DL (0.70-1.30); GLOMERULAR FILTRATION RATE > 60.0 (>35); GLUCOSE, FASTING 106 MG/DL (70-100); POTASSIUM SERUM 4.2 MEQ/L (3.5-5.1); SODIUM LEVEL 138 MEQ/L (136-145)
[2021-11-05] MEDS: FUROSEMIDE 20MG/2ML VIAL (J1940) IV SCH ×2 (08:50→17:00)
[2021-11-05] MEDS: levETIRAcetam 250MG TABLET (KEPPRA) PO SCH ×2 (08:50→21:23)
[2021-11-05] MEDS: APIXABAN 5 MG TAB (ELIQUIS) PO SCH ×2 (08:50→21:22)
[2021-11-05] MEDS: PANTOPRAZOLE 40MG TAB (PROTONIX) PO SCH (08:50)
[2021-11-05] MEDS: ACETAMINOPHEN 650MG ER TAB (TYLENOL ARTHRITIS) PO SCH ×2 (10:34→21:23)
[2021-11-05] MEDS: atenoloL 25 MG TAB PO SCH (10:35)
[2021-11-05 14:52] LABS: APPEARANCE, URINE HAZY (CLEAR); BACTERIA, URINE AUTO 1+ (NEGATIVE); BILIRUBIN, URINE AUTO NEGATIVE (NEGATIVE); BLOOD, URINE BLOOD 1+ (NEGATIVE); COLOR, URINE YELLOW (YELLOW); GLUCOSE, URINE (UA) AUTO NEGATIVE (NEGATIVE); KETONE, URINE AUTO NEGATIVE (NEGATIVE); LEUKOCYTE ESTERASE, URINE AUTO 3+ (NEGATIVE); MUCUS, URINE SMALL (NEGATIVE); NITRITE, URINE AUTO NEGATIVE (NEGATIVE); PROTEIN, URINE AUTO NEGATIVE (NEGATIVE); RBC, URINE AUTO 3 /HPF (0-3); SPECIFIC GRAVITY URINE AUTO 1.012 (1.002-1.035); SQUAMOUS EPITHELIAL CELL UR AU 3 /HPF (0-6); UROBILINOGEN, URINE AUTO 0.2 mg/dL (0.0-2.0); WBC, URINE AUTO TNTC /HPF (0-3)
[2021-11-05] MEDS: PRAVASTATIN 20 MG TAB PO SCH (21:23)
[2021-11-05] MEDS: TAMSULOSIN 0.4 MG CAP PO SCH (21:23)
[2021-11-06] VITALS: BP 108/62
[2021-11-06] MEDS: LEVALBUTEROL 1.25 MG/0.5 ML CONCENTRATE NEB NEB SCH ×4 (02:04→20:26)
[2021-11-06 04:00] VITALS: BP 111/61
[2021-11-06 05:45] LABS: BASO % 0.7 % (0.0-1.0); EOS # 0.1 10^3/uL (0.0-0.5); EOS % 2.1 % (0.0-3.0); HEMATOCRIT 35.4 % (42.0-52.0); HEMOGLOBIN 10.8 g/dl (13.5-17.5); LYMPH # 0.9 10^3/uL (1.5-5.0); LYMPH % 16.1 % (24.0-44.0); MEAN CORPUSCULAR HEMOGLOBIN 28.9 pg (27.0-33.0); MEAN CORPUSCULAR HGB CONC 30.5 g/dl (32.0-36.5); MEAN CORPUSCULAR VOLUME 94.7 fl (80.0-96.0); MONO # 0.6 10^3/uL (0.0-0.8); MONO % 10.3 % (2.0-8.0); NEUTROPHILS % 70.1 % (36.0-66.0); PLATELET COUNT, AUTOMATED 172 10^3/uL (150-450); RED BLOOD COUNT 3.74 10^6/uL (4.30-6.10); WHITE BLOOD COUNT 5.7 10^3/uL (4.0-10.0)
[2021-11-06 06:27] LABS: BLOOD UREA NITROGEN 29 MG/DL (7-18); CALCIUM LEVEL 8.7 MG/DL (8.8-10.2); CARBON DIOXIDE LEVEL 38 MEQ/L (21-32); CHLORIDE LEVEL 96 MEQ/L (98-107); CREATININE FOR GFR 1.05 MG/DL (0.70-1.30); GLOMERULAR FILTRATION RATE > 60.0 (>35); GLUCOSE, FASTING 101 MG/DL (70-100); POTASSIUM SERUM 3.9 MEQ/L (3.5-5.1); SODIUM LEVEL 136 MEQ/L (136-145)
[2021-11-06] MEDS: FUROSEMIDE 20MG/2ML VIAL (J1940) IV SCH ×2 (08:43→17:40)
[2021-11-06] MEDS: levETIRAcetam 250MG TABLET (KEPPRA) PO SCH ×2 (08:43→21:02)
[2021-11-06 08:44] VITALS: BP 106/56
[2021-11-06] MEDS: ACETAMINOPHEN 650MG ER TAB (TYLENOL ARTHRITIS) PO SCH ×2 (08:44→21:01)
[2021-11-06] MEDS: atenoloL 25 MG TAB PO SCH (08:44)
[2021-11-06] MEDS: APIXABAN 5 MG TAB (ELIQUIS) PO SCH ×2 (08:45→21:03)
[2021-11-06] MEDS: PANTOPRAZOLE 40MG TAB (PROTONIX) PO SCH (08:45)
[2021-11-06 11:50] VITALS: BP 98/58
[2021-11-06 12:06] LABS: AMORPHOUS SEDIMENT SMALL (NEGATIVE); APPEARANCE, URINE CLOUDY (CLEAR); BACTERIA, URINE AUTO 1+ (NEGATIVE); BILIRUBIN, URINE AUTO NEGATIVE (NEGATIVE); BLOOD, URINE BLOOD 1+ (NEGATIVE); COLOR, URINE YELLOW (YELLOW); GLUCOSE, URINE (UA) AUTO NEGATIVE (NEGATIVE); KETONE, URINE AUTO NEGATIVE (NEGATIVE); LEUKOCYTE ESTERASE, URINE AUTO 3+ (NEGATIVE); MUCUS, URINE SMALL (NEGATIVE); NITRITE, URINE AUTO NEGATIVE (NEGATIVE); PROTEIN, URINE AUTO NEGATIVE (NEGATIVE); RBC, URINE AUTO 12 /HPF (0-3); SQUAMOUS EPITHELIAL CELL UR AU 0 /HPF (0-6); UROBILINOGEN, URINE AUTO 0.2 mg/dL (0.0-2.0); WBC, URINE AUTO TNTC /HPF (0-3)
[2021-11-06 16:29] VITALS: BP 98/63
[2021-11-06 20:00] VITALS: BP 105/62
[2021-11-06] MEDS: TAMSULOSIN 0.4 MG CAP PO SCH (21:02)
[2021-11-06] MEDS: PRAVASTATIN 20 MG TAB PO SCH (21:03)
[2021-11-07] VITALS: BP 127/68
[2021-11-07] MEDS: LEVALBUTEROL 1.25 MG/0.5 ML CONCENTRATE NEB NEB SCH ×4 (01:48→20:19)
[2021-11-07 04:00] VITALS: BP 100/59
[2021-11-07 05:17] LABS: BASO % 0.7 % (0.0-1.0); EOS # 0.1 10^3/uL (0.0-0.5); HEMATOCRIT 34.1 % (42.0-52.0); HEMOGLOBIN 10.5 g/dl (13.5-17.5); LYMPH # 0.8 10^3/uL (1.5-5.0); LYMPH % 12.6 % (24.0-44.0); MEAN CORPUSCULAR HEMOGLOBIN 28.5 pg (27.0-33.0); MEAN CORPUSCULAR HGB CONC 30.8 g/dl (32.0-36.5); MEAN CORPUSCULAR VOLUME 92.7 fl (80.0-96.0); MONO # 0.5 10^3/uL (0.0-0.8); MONO % 8.3 % (2.0-8.0); NEUTROPHILS # 4.6 10^3/uL (1.5-8.5); NEUTROPHILS % 75.4 % (36.0-66.0); PLATELET COUNT, AUTOMATED 179 10^3/uL (150-450); RED BLOOD COUNT 3.68 10^6/uL (4.30-6.10); WHITE BLOOD COUNT 6.1 10^3/uL (4.0-10.0)
[2021-11-07 05:48] LABS: BLOOD UREA NITROGEN 30 MG/DL (7-18); CALCIUM LEVEL 8.8 MG/DL (8.8-10.2); CARBON DIOXIDE LEVEL 37 MEQ/L (21-32); CHLORIDE LEVEL 97 MEQ/L (98-107); CREATININE FOR GFR 1.05 MG/DL (0.70-1.30); GLOMERULAR FILTRATION RATE > 60.0 (>35); GLUCOSE, FASTING 112 MG/DL (70-100); POTASSIUM SERUM 3.7 MEQ/L (3.5-5.1); SODIUM LEVEL 135 MEQ/L (136-145)
[2021-11-07 08:14] VITALS: BP 106/71
[2021-11-07] MEDS: FUROSEMIDE 20MG/2ML VIAL (J1940) IV SCH ×2 (09:24→17:19)
[2021-11-07] MEDS: ACETAMINOPHEN 650MG ER TAB (TYLENOL ARTHRITIS) PO SCH ×2 (09:24→21:40)
[2021-11-07] MEDS: levETIRAcetam 250MG TABLET (KEPPRA) PO SCH ×2 (09:25→21:41)
[2021-11-07] MEDS: PANTOPRAZOLE 40MG TAB (PROTONIX) PO SCH (09:26)
[2021-11-07] MEDS: APIXABAN 5 MG TAB (ELIQUIS) PO SCH ×2 (09:26→21:41)
[2021-11-07] MEDS: atenoloL 25 MG TAB PO SCH (09:35)
[2021-11-07 12:16] VITALS: BP 117/58
[2021-11-07 16:27] VITALS: BP 100/64
[2021-11-07 20:00] VITALS: BP 100/64
[2021-11-07] MEDS: PRAVASTATIN 20 MG TAB PO SCH (21:41)
[2021-11-07] MEDS: TAMSULOSIN 0.4 MG CAP PO SCH (21:41)
[2021-11-08] VITALS: BP 101/57
[2021-11-08] MEDS: LEVALBUTEROL 1.25 MG/0.5 ML CONCENTRATE NEB NEB SCH ×2 (02:52→07:09)
[2021-11-08] MEDS: PERCOCET 5MG/325MG TAB PO PRN (03:09)
[2021-11-08 04:00] VITALS: BP 104/63
[2021-11-08 05:34] LABS: BASO % 0.5 % (0.0-1.0); EOS # 0.1 10^3/uL (0.0-0.5); HEMATOCRIT 34.1 % (42.0-52.0); HEMOGLOBIN 10.3 g/dl (13.5-17.5); LYMPH # 0.8 10^3/uL (1.5-5.0); LYMPH % 13.7 % (24.0-44.0); MEAN CORPUSCULAR HEMOGLOBIN 28.2 pg (27.0-33.0); MEAN CORPUSCULAR HGB CONC 30.2 g/dl (32.0-36.5); MEAN CORPUSCULAR VOLUME 93.4 fl (80.0-96.0); MONO # 0.6 10^3/uL (0.0-0.8); MONO % 10.1 % (2.0-8.0); NEUTROPHILS % 73.2 % (36.0-66.0); PLATELET COUNT, AUTOMATED 188 10^3/uL (150-450); RED BLOOD COUNT 3.65 10^6/uL (4.30-6.10); WHITE BLOOD COUNT 5.5 10^3/uL (4.0-10.0)
[2021-11-08 06:09] LABS: BLOOD UREA NITROGEN 31 MG/DL (7-18); CALCIUM LEVEL 8.6 MG/DL (8.8-10.2); CARBON DIOXIDE LEVEL 37 MEQ/L (21-32); CHLORIDE LEVEL 96 MEQ/L (98-107); CREATININE FOR GFR 1.13 MG/DL (0.70-1.30); GLOMERULAR FILTRATION RATE > 60.0 (>35); GLUCOSE, FASTING 112 MG/DL (70-100); POTASSIUM SERUM 3.8 MEQ/L (3.5-5.1); SODIUM LEVEL 137 MEQ/L (136-145)
[2021-11-08 09:26] VITALS: BP 101/59
[2021-11-08] MEDS: FUROSEMIDE 20MG/2ML VIAL (J1940) IV SCH (09:59)
[2021-11-08 10:00] VITALS: BP 101/59
[2021-11-08] MEDS: atenoloL 25 MG TAB PO SCH (10:00)
[2021-11-08] MEDS: APIXABAN 5 MG TAB (ELIQUIS) PO SCH (10:00)
[2021-11-08] MEDS: levETIRAcetam 250MG TABLET (KEPPRA) PO SCH (10:00)
[2021-11-08] MEDS: ACETAMINOPHEN 650MG ER TAB (TYLENOL ARTHRITIS) PO SCH (10:00)
[2021-11-08] MEDS: PANTOPRAZOLE 40MG TAB (PROTONIX) PO SCH (10:00)
[2021-11-08] MEDS ORDERED: FURO40TA2 PO (10:51)
[2021-11-09] MEDS ORDERED: POTA-151 PO (10:58)
== END 2021-11-08 13:24 | disposition home health service (06) | DRG 194 ==
LOC: EDBD 08:21 → M ED 08:21 → M ED INP 13:59 → ENRESERV 16:10 → M PCU 17:00
PROVIDERS: ADMIT Internal Medicine; ATTEND Internal Medicine
PROC: 3E03317 Introduction of Other Thrombolytic into Peripheral Vein, Percutaneous Approach (ICD-10-PCS; 2021-10-31)
PROC: 0W993ZZ Drainage of Right Pleural Cavity, Percutaneous Approach (ICD-10-PCS; principal; 2021-10-31 15:00)
DX: J90 Pleural effusion, not elsewhere classified (principal); J96.20 Acute and chronic respiratory failure, unspecified whether with hypoxia or hypercapnia; I50.30 Unspecified diastolic (congestive) heart failure; J44.9 Chronic obstructive pulmonary disease, unspecified; G62.9 Polyneuropathy, unspecified; Z99.81 Dependence on supplemental oxygen; N28.1 Cyst of kidney, acquired; I48.20 Chronic atrial fibrillation, unspecified; N18.31 Chronic kidney disease, stage 3a; Z79.01 Long term (current) use of anticoagulants; G40.909 Epilepsy, unspecified, not intractable, without status epilepticus; G47.33 Obstructive sleep apnea (adult) (pediatric); E78.5 Hyperlipidemia, unspecified; Z91.19 Patient's noncompliance with other medical treatment and regimen; Z79.899 Other long term (current) drug therapy; Z92.21 Personal history of antineoplastic chemotherapy; Z92.3 Personal history of irradiation; E66.9 Obesity, unspecified; Z85.048 Personal history of other malignant neoplasm of rectum, rectosigmoid junction, and anus; Z87.891 Personal history of nicotine dependence; H35.30 Unspecified macular degeneration; I13.0 Hypertensive heart and chronic kidney disease with heart failure and stage 1 through stage 4 chronic kidney disease, or unspecified chronic kidney disease; I87.8 Other specified disorders of veins

== ENCOUNTER 2021-11-19 03:39 | Inpatient (IN) | payer OTHER, MEDICARE ==
[~2021-11-19] VITALS: Ht 170.2 cm; Wt 80.0 kg
[~2021-11-19 03:39] MED LIST changes: +ACET650T15 PO; +ESOM40CA35 PO; +FURO20TA2 PO; +OYST500T10 PO; +POTA-151 PO; +TAMS1CAP17 PO
[2021-11-19 04:25] LABS: BASO % 0.5 % (0.0-1.0); EOS # 0.1 10^3/uL (0.0-0.5); EOS % 1.8 % (0.0-3.0); HEMATOCRIT 36.7 % (42.0-52.0); HEMOGLOBIN 11.6 g/dl (13.5-17.5); LYMPH # 0.8 10^3/uL (1.5-5.0); LYMPH % 14.3 % (24.0-44.0); MEAN CORPUSCULAR HEMOGLOBIN 29.3 pg (27.0-33.0); MEAN CORPUSCULAR HGB CONC 31.6 g/dl (32.0-36.5); MEAN CORPUSCULAR VOLUME 92.7 fl (80.0-96.0); MONO # 0.4 10^3/uL (0.0-0.8); MONO % 7.3 % (2.0-8.0); NEUTROPHILS # 4.2 10^3/uL (1.5-8.5); NEUTROPHILS % 75.4 % (36.0-66.0); PLATELET COUNT, AUTOMATED 220 10^3/uL (150-450); RED BLOOD COUNT 3.96 10^6/uL (4.30-6.10); WHITE BLOOD COUNT 5.6 10^3/uL (4.0-10.0)
[2021-11-19 04:35] LABS: INR 1.47; PROTHROMBIN TIME 18.2 SECONDS (12.7-14.5)
[2021-11-19 05:04] LABS: CK-MB VALUE MASS < 1.0 NG/ML (<3.6); CPK CREATINE PHOSPHOKINASE 42 U/L (39-308); MB/CK RELATIVE INDEX 2.38 (< OR =4)
[2021-11-19 05:12] LABS: BLOOD UREA NITROGEN 45 MG/DL (7-18); CALCIUM LEVEL 9.1 MG/DL (8.8-10.2); CARBON DIOXIDE LEVEL 29 MEQ/L (21-32); CHLORIDE LEVEL 102 MEQ/L (98-107); CREATININE FOR GFR 1.72 MG/DL (0.70-1.30); ETHYL ALCOHOL (ETHANOL) < 0.003 % (0.000-0.010); FREE T4 0.85 NG/DL (0.76-1.46); GLOMERULAR FILTRATION RATE 40.4 (>35); GLUCOSE, FASTING 103 MG/DL (70-100); MAGNESIUM LEVEL 1.8 MG/DL (1.8-2.4); POTASSIUM SERUM 3.6 MEQ/L (3.5-5.1); SODIUM LEVEL 138 MEQ/L (136-145)
[2021-11-19] MEDS ORDERED: NS 500 ML IV ONE (06:25)
[2021-11-19] MEDS ORDERED: HOME MED LIST COMPLETE! XX SCH (06:25)
[2021-11-19] MEDS ORDERED: POTA-150 PO (06:25)
[2021-11-19] MEDS ORDERED: FURO40TA2 PO (06:25)
[2021-11-19] MEDS ORDERED: NS 1,000 ML IV ONE (07:45)
[2021-11-19] MEDS ORDERED: NS 1,000 ML IV SCH (07:45)
[2021-11-19] MEDS ORDERED: atenoloL 25 MG TAB PO SCH (09:00)
[2021-11-19] MEDS: levETIRAcetam 250MG TABLET (KEPPRA) PO SCH ×2 (14:26→20:46)
[2021-11-19] MEDS: POTASSIUM CHLORIDE 10MEQ SR TABLET PO SCH (14:26)
[2021-11-19] MEDS: APIXABAN 2.5 MG TAB (ELIQUIS) PO SCH ×2 (14:26→20:45)
[2021-11-19 15:00] VITALS: BP 125/73
[2021-11-19 15:46] VITALS: BP_SYST 123; BP_SYST 125; BP_SYST 136; BP_DIAS 73; BP_DIAS 76; BP_DIAS 90
[2021-11-19] MEDS: ACETAMINOPHEN 650MG ER TAB (TYLENOL ARTHRITIS) PO SCH (15:49)
[2021-11-19 19:24] LABS: CREATININE FOR GFR 1.45 MG/DL (0.70-1.30); GLOMERULAR FILTRATION RATE 49.2 (>35); POTASSIUM SERUM 3.7 MEQ/L (3.5-5.1)
[2021-11-19 20:00] VITALS: BP 126/69
[2021-11-19] MEDS: TAMSULOSIN 0.4 MG CAP PO SCH (20:45)
[2021-11-19] MEDS: PRAVASTATIN 20 MG TAB PO SCH (20:45)
[2021-11-20] MEDS: ACETAMINOPHEN 650MG ER TAB (TYLENOL ARTHRITIS) PO SCH ×3 (00:37→21:13)
[2021-11-20 06:00] VITALS: BP 113/64
[2021-11-20 06:23] LABS: HEMATOCRIT 36.9 % (42.0-52.0); HEMOGLOBIN 11.2 g/dl (13.5-17.5); MEAN CORPUSCULAR HEMOGLOBIN 28.5 pg (27.0-33.0); MEAN CORPUSCULAR HGB CONC 30.4 g/dl (32.0-36.5); MEAN CORPUSCULAR VOLUME 93.9 fl (80.0-96.0); PLATELET COUNT, AUTOMATED 187 10^3/uL (150-450); RED BLOOD COUNT 3.93 10^6/uL (4.30-6.10)
[2021-11-20 07:03] LABS: BLOOD UREA NITROGEN 35 MG/DL (7-18); CARBON DIOXIDE LEVEL 32 MEQ/L (21-32); CHLORIDE LEVEL 106 MEQ/L (98-107); CREATININE FOR GFR 1.11 MG/DL (0.70-1.30); GLOMERULAR FILTRATION RATE > 60.0 (>35); GLUCOSE, FASTING 102 MG/DL (70-100); MAGNESIUM LEVEL 1.9 MG/DL (1.8-2.4); POTASSIUM SERUM 3.8 MEQ/L (3.5-5.1); SODIUM LEVEL 138 MEQ/L (136-145)
[2021-11-20] MEDS: POTASSIUM CHLORIDE 10MEQ SR TABLET PO SCH (08:16)
[2021-11-20] MEDS: levETIRAcetam 250MG TABLET (KEPPRA) PO SCH ×2 (08:16→21:13)
[2021-11-20] MEDS: APIXABAN 2.5 MG TAB (ELIQUIS) PO SCH (08:16)
[2021-11-20] MEDS: METOPROLOL TART 25 MG TABLET PO SCH (08:17)
[2021-11-20 14:00] VITALS: BP 100/61
[2021-11-20 19:44] VITALS: BP 107/78
[2021-11-20] MEDS: TAMSULOSIN 0.4 MG CAP PO SCH (21:13)
[2021-11-20] MEDS: APIXABAN 5 MG TAB (ELIQUIS) PO SCH (21:13)
[2021-11-20] MEDS: PRAVASTATIN 20 MG TAB PO SCH (21:13)
[2021-11-21 03:53] VITALS: BP 114/73
[2021-11-21 08:48] LABS: BLOOD UREA NITROGEN 30 MG/DL (7-18); CALCIUM LEVEL 9.3 MG/DL (8.8-10.2); CARBON DIOXIDE LEVEL 28 MEQ/L (21-32); CHLORIDE LEVEL 107 MEQ/L (98-107); GLOMERULAR FILTRATION RATE > 60.0 (>35); GLUCOSE, FASTING 95 MG/DL (70-100); MAGNESIUM LEVEL 1.9 MG/DL (1.8-2.4); POTASSIUM SERUM 3.9 MEQ/L (3.5-5.1); SODIUM LEVEL 141 MEQ/L (136-145)
[2021-11-21] MEDS: POTASSIUM CHLORIDE 10MEQ SR TABLET PO SCH (09:05)
[2021-11-21] MEDS: METOPROLOL TART 25 MG TABLET PO SCH (09:05)
[2021-11-21] MEDS: ACETAMINOPHEN 650MG ER TAB (TYLENOL ARTHRITIS) PO SCH ×2 (09:06→20:22)
[2021-11-21] MEDS: APIXABAN 5 MG TAB (ELIQUIS) PO SCH ×2 (09:06→20:22)
[2021-11-21] MEDS: levETIRAcetam 250MG TABLET (KEPPRA) PO SCH ×2 (09:06→20:23)
[2021-11-21] MEDS: LIDOCAINE 5% (LIDODERM) PATCH TD SCH (12:03)
[2021-11-21] MEDS: ENTRESTO 24-26MG TABLET (SACUBITRIL/VALSARTAN) PO SCH ×2 (12:03→20:23)
[2021-11-21] MEDS: TORSEMIDE 20 MG TAB PO SCH (17:13)
[2021-11-21] MEDS: TAMSULOSIN 0.4 MG CAP PO SCH (20:22)
[2021-11-21] MEDS: PRAVASTATIN 20 MG TAB PO SCH (20:22)
[2021-11-21] MEDS: **NOTE PATIENT COMMENT** MISC XX SCH (21:00)
[2021-11-22 04:39] VITALS: BP 100/67
[2021-11-22 07:33] LABS: HEMATOCRIT 35.9 % (42.0-52.0); HEMOGLOBIN 11.3 g/dl (13.5-17.5); MEAN CORPUSCULAR HEMOGLOBIN 29.5 pg (27.0-33.0); MEAN CORPUSCULAR HGB CONC 31.5 g/dl (32.0-36.5); MEAN CORPUSCULAR VOLUME 93.7 fl (80.0-96.0); PLATELET COUNT, AUTOMATED 183 10^3/uL (150-450); RED BLOOD COUNT 3.83 10^6/uL (4.30-6.10); WHITE BLOOD COUNT 6.1 10^3/uL (4.0-10.0)
[2021-11-22 08:13] LABS: BLOOD UREA NITROGEN 27 MG/DL (7-18); CALCIUM LEVEL 8.9 MG/DL (8.8-10.2); CARBON DIOXIDE LEVEL 30 MEQ/L (21-32); CHLORIDE LEVEL 103 MEQ/L (98-107); CREATININE FOR GFR 1.11 MG/DL (0.70-1.30); GLOMERULAR FILTRATION RATE > 60.0 (>35); GLUCOSE, FASTING 97 MG/DL (70-100); POTASSIUM SERUM 3.7 MEQ/L (3.5-5.1); SODIUM LEVEL 138 MEQ/L (136-145)
[2021-11-22] MEDS: ENTRESTO 24-26MG TABLET (SACUBITRIL/VALSARTAN) PO SCH ×2 (09:00→21:27)
[2021-11-22] MEDS: TORSEMIDE 20 MG TAB PO SCH ×2 (09:00→16:19)
[2021-11-22] MEDS: METOPROLOL TART 25 MG TABLET PO SCH (09:00)
[2021-11-22] MEDS: POTASSIUM CHLORIDE 10MEQ SR TABLET PO SCH (09:30)
[2021-11-22] MEDS: ACETAMINOPHEN 650MG ER TAB (TYLENOL ARTHRITIS) PO SCH ×2 (09:30→21:28)
[2021-11-22] MEDS: levETIRAcetam 250MG TABLET (KEPPRA) PO SCH ×2 (09:30→21:27)
[2021-11-22] MEDS: APIXABAN 5 MG TAB (ELIQUIS) PO SCH ×2 (09:31→21:27)
[2021-11-22] MEDS: LIDOCAINE 5% (LIDODERM) PATCH TD SCH (09:31)
[2021-11-22] MEDS: TAMSULOSIN 0.4 MG CAP PO SCH (21:27)
[2021-11-22] MEDS: PRAVASTATIN 20 MG TAB PO SCH (21:28)
[2021-11-22] MEDS: **NOTE PATIENT COMMENT** MISC XX SCH (21:28)
[2021-11-23 04:00] VITALS: BP 114/78
[2021-11-23 07:58] LABS: HEMATOCRIT 37.8 % (42.0-52.0); HEMOGLOBIN 11.8 g/dl (13.5-17.5); MEAN CORPUSCULAR HEMOGLOBIN 29.1 pg (27.0-33.0); MEAN CORPUSCULAR HGB CONC 31.2 g/dl (32.0-36.5); MEAN CORPUSCULAR VOLUME 93.3 fl (80.0-96.0); PLATELET COUNT, AUTOMATED 178 10^3/uL (150-450); RED BLOOD COUNT 4.05 10^6/uL (4.30-6.10); WHITE BLOOD COUNT 5.7 10^3/uL (4.0-10.0)
[2021-11-23] MEDS: ACETAMINOPHEN 650MG ER TAB (TYLENOL ARTHRITIS) PO SCH ×2 (08:28→20:38)
[2021-11-23] MEDS: APIXABAN 5 MG TAB (ELIQUIS) PO SCH ×2 (08:28→20:36)
[2021-11-23] MEDS: POTASSIUM CHLORIDE 10MEQ SR TABLET PO SCH (08:29)
[2021-11-23] MEDS: levETIRAcetam 250MG TABLET (KEPPRA) PO SCH ×2 (08:29→20:37)
[2021-11-23] MEDS: METOPROLOL TART 25 MG TABLET PO SCH (08:30)
[2021-11-23] MEDS: ENTRESTO 24-26MG TABLET (SACUBITRIL/VALSARTAN) PO SCH ×2 (08:30→20:35)
[2021-11-23] MEDS: LIDOCAINE 5% (LIDODERM) PATCH TD SCH (08:30)
[2021-11-23] MEDS: TORSEMIDE 20 MG TAB PO SCH ×2 (08:30→16:11)
[2021-11-23 08:41] LABS: BLOOD UREA NITROGEN 33 MG/DL (7-18); CALCIUM LEVEL 8.9 MG/DL (8.8-10.2); CARBON DIOXIDE LEVEL 28 MEQ/L (21-32); CHLORIDE LEVEL 104 MEQ/L (98-107); CREATININE FOR GFR 1.21 MG/DL (0.70-1.30); GLOMERULAR FILTRATION RATE > 60.0 (>35); GLUCOSE, FASTING 96 MG/DL (70-100); POTASSIUM SERUM 3.8 MEQ/L (3.5-5.1); SODIUM LEVEL 139 MEQ/L (136-145)
[2021-11-23 16:11] VITALS: BP 90/61
[2021-11-23 19:45] VITALS: BP 102/57
[2021-11-23] MEDS: PRAVASTATIN 20 MG TAB PO SCH (20:36)
[2021-11-23] MEDS: **NOTE PATIENT COMMENT** MISC XX SCH (20:38)
[2021-11-23] MEDS: TAMSULOSIN 0.4 MG CAP PO SCH (20:38)
[2021-11-24 04:47] VITALS: BP 106/61
[2021-11-24 07:06] LABS: HEMATOCRIT 38.6 % (42.0-52.0); HEMOGLOBIN 11.9 g/dl (13.5-17.5); MEAN CORPUSCULAR HEMOGLOBIN 29.1 pg (27.0-33.0); MEAN CORPUSCULAR HGB CONC 30.8 g/dl (32.0-36.5); MEAN CORPUSCULAR VOLUME 94.4 fl (80.0-96.0); PLATELET COUNT, AUTOMATED 184 10^3/uL (150-450); RED BLOOD COUNT 4.09 10^6/uL (4.30-6.10); WHITE BLOOD COUNT 5.4 10^3/uL (4.0-10.0)
[2021-11-24 07:35] LABS: BLOOD UREA NITROGEN 35 MG/DL (7-18); CALCIUM LEVEL 9.5 MG/DL (8.8-10.2); CARBON DIOXIDE LEVEL 29 MEQ/L (21-32); CHLORIDE LEVEL 103 MEQ/L (98-107); GLOMERULAR FILTRATION RATE > 60.0 (>35); GLUCOSE, FASTING 97 MG/DL (70-100); POTASSIUM SERUM 3.9 MEQ/L (3.5-5.1); SODIUM LEVEL 137 MEQ/L (136-145)
[2021-11-24] MEDS: TORSEMIDE 20 MG TAB PO SCH ×2 (08:50→20:03)
[2021-11-24] MEDS: METOPROLOL TART 25 MG TABLET PO SCH (08:51)
[2021-11-24] MEDS: levETIRAcetam 250MG TABLET (KEPPRA) PO SCH ×2 (08:55→20:03)
[2021-11-24] MEDS: APIXABAN 5 MG TAB (ELIQUIS) PO SCH ×2 (08:55→20:02)
[2021-11-24] MEDS: ACETAMINOPHEN 650MG ER TAB (TYLENOL ARTHRITIS) PO SCH ×2 (08:55→20:04)
[2021-11-24] MEDS: POTASSIUM CHLORIDE 10MEQ SR TABLET PO SCH (08:55)
[2021-11-24] MEDS: LIDOCAINE 5% (LIDODERM) PATCH TD SCH (08:55)
[2021-11-24] MEDS: ENTRESTO 24-26MG TABLET (SACUBITRIL/VALSARTAN) PO SCH ×2 (09:00→20:02)
[2021-11-24] MEDS: PRAVASTATIN 20 MG TAB PO SCH (20:04)
[2021-11-24] MEDS: **NOTE PATIENT COMMENT** MISC XX SCH (20:05)
[2021-11-24 20:06] VITALS: BP 129/83
[2021-11-24] MEDS: TAMSULOSIN 0.4 MG CAP PO SCH (21:16)
[2021-11-25 04:00] VITALS: BP 98/60
[2021-11-25] MEDS: METOPROLOL TART 25 MG TABLET PO SCH (09:00)
[2021-11-25] MEDS: ACETAMINOPHEN 650MG ER TAB (TYLENOL ARTHRITIS) PO SCH ×2 (09:24→20:54)
[2021-11-25] MEDS: levETIRAcetam 250MG TABLET (KEPPRA) PO SCH ×2 (09:24→20:54)
[2021-11-25] MEDS: APIXABAN 5 MG TAB (ELIQUIS) PO SCH ×2 (09:24→20:54)
[2021-11-25] MEDS: POTASSIUM CHLORIDE 10MEQ SR TABLET PO SCH (09:24)
[2021-11-25] MEDS: ENTRESTO 24-26MG TABLET (SACUBITRIL/VALSARTAN) PO SCH ×2 (09:25→20:54)
[2021-11-25] MEDS: LIDOCAINE 5% (LIDODERM) PATCH TD SCH (09:26)
[2021-11-25 20:11] VITALS: BP 102/66
[2021-11-25] MEDS: TORSEMIDE 20 MG TAB PO SCH (20:49)
[2021-11-25] MEDS: TAMSULOSIN 0.4 MG CAP PO SCH (20:54)
[2021-11-25] MEDS: PRAVASTATIN 20 MG TAB PO SCH (20:54)
[2021-11-25] MEDS: **NOTE PATIENT COMMENT** MISC XX SCH (20:55)
[2021-11-25] MEDS: CALCIUM CARBONATE 500 MG CHEW U/D PO PRN (22:21)
[2021-11-26 04:36] VITALS: BP 107/61
[2021-11-26] MEDS: LIDOCAINE 5% (LIDODERM) PATCH TD SCH (08:45)
[2021-11-26] MEDS: ACETAMINOPHEN 650MG ER TAB (TYLENOL ARTHRITIS) PO SCH ×2 (08:45→21:02)
[2021-11-26] MEDS: levETIRAcetam 250MG TABLET (KEPPRA) PO SCH ×2 (08:45→21:02)
[2021-11-26] MEDS: ENTRESTO 24-26MG TABLET (SACUBITRIL/VALSARTAN) PO SCH ×2 (08:45→21:01)
[2021-11-26] MEDS: METOPROLOL TART 25 MG TABLET PO SCH (08:46)
[2021-11-26] MEDS: POTASSIUM CHLORIDE 10MEQ SR TABLET PO SCH (08:46)
[2021-11-26] MEDS: APIXABAN 5 MG TAB (ELIQUIS) PO SCH ×2 (08:46→21:04)
[2021-11-26] MEDS: CALCIUM CARBONATE 500 MG CHEW U/D PO PRN (14:47)
[2021-11-26] MEDS ORDERED: CALCIUM CARBONATE 500 MG CHEW U/D PO PRN (17:25)
[2021-11-26] MEDS: MAALOX 30 ML SUSP *UDC PO PRN (17:41)
[2021-11-26] MEDS: PRAVASTATIN 20 MG TAB PO SCH (21:01)
[2021-11-26] MEDS: TORSEMIDE 20 MG TAB PO SCH (21:02)
[2021-11-26] MEDS: **NOTE PATIENT COMMENT** MISC XX SCH (21:05)
[2021-11-26] MEDS: TAMSULOSIN 0.4 MG CAP PO SCH (21:05)
[2021-11-27 04:00] VITALS: BP 100/60
[2021-11-27] MEDS: levETIRAcetam 250MG TABLET (KEPPRA) PO SCH ×2 (08:37→20:38)
[2021-11-27] MEDS: ACETAMINOPHEN 650MG ER TAB (TYLENOL ARTHRITIS) PO SCH ×2 (08:37→20:37)
[2021-11-27] MEDS: POTASSIUM CHLORIDE 10MEQ SR TABLET PO SCH (08:38)
[2021-11-27] MEDS: APIXABAN 5 MG TAB (ELIQUIS) PO SCH ×2 (08:38→20:36)
[2021-11-27] MEDS: METOPROLOL TART 25 MG TABLET PO SCH (08:38)
[2021-11-27] MEDS: ENTRESTO 24-26MG TABLET (SACUBITRIL/VALSARTAN) PO SCH ×2 (08:38→20:37)
[2021-11-27 08:52] VITALS: BP 112/58
[2021-11-27] MEDS: LIDOCAINE 5% (LIDODERM) PATCH TD SCH (11:02)
[2021-11-27 15:51] VITALS: BP 100/58
[2021-11-27 20:00] VITALS: BP 102/60
[2021-11-27] MEDS: PRAVASTATIN 20 MG TAB PO SCH (20:36)
[2021-11-27] MEDS: TAMSULOSIN 0.4 MG CAP PO SCH (20:37)
[2021-11-27] MEDS: **NOTE PATIENT COMMENT** MISC XX SCH (20:38)
[2021-11-27] MEDS: TORSEMIDE 20 MG TAB PO SCH (20:40)
[2021-11-28 03:51] VITALS: BP 106/64
[2021-11-28] MEDS: APIXABAN 5 MG TAB (ELIQUIS) PO SCH ×2 (08:40→21:48)
[2021-11-28] MEDS: METOPROLOL TART 25 MG TABLET PO SCH (08:40)
[2021-11-28] MEDS: ENTRESTO 24-26MG TABLET (SACUBITRIL/VALSARTAN) PO SCH ×2 (08:41→21:47)
[2021-11-28] MEDS: POTASSIUM CHLORIDE 10MEQ SR TABLET PO SCH (08:41)
[2021-11-28] MEDS: levETIRAcetam 250MG TABLET (KEPPRA) PO SCH ×2 (08:41→21:48)
[2021-11-28] MEDS: ACETAMINOPHEN 650MG ER TAB (TYLENOL ARTHRITIS) PO SCH ×2 (08:42→21:48)
[2021-11-28] MEDS: LIDOCAINE 5% (LIDODERM) PATCH TD SCH (08:43)
[2021-11-28] MEDS: MAALOX 30 ML SUSP *UDC PO PRN ×2 (10:00→21:54)
[2021-11-28] MEDS: **NOTE PATIENT COMMENT** MISC XX SCH (21:17)
[2021-11-28 21:40] VITALS: BP 113/68
[2021-11-28] MEDS: TORSEMIDE 20 MG TAB PO SCH (21:47)
[2021-11-28] MEDS: TAMSULOSIN 0.4 MG CAP PO SCH (21:48)
[2021-11-28] MEDS: PRAVASTATIN 20 MG TAB PO SCH (21:48)
[2021-11-29 02:00] VITALS: BP 116/66
[2021-11-29] MEDS ORDERED: guaiFENesin 200 MG TAB PO PRN (05:40)
[2021-11-29 06:00] VITALS: BP 119/64
[2021-11-29] MEDS: POTASSIUM CHLORIDE 10MEQ SR TABLET PO SCH (08:23)
[2021-11-29] MEDS: ACETAMINOPHEN 650MG ER TAB (TYLENOL ARTHRITIS) PO SCH (08:24)
[2021-11-29] MEDS: APIXABAN 5 MG TAB (ELIQUIS) PO SCH (08:24)
[2021-11-29] MEDS: levETIRAcetam 250MG TABLET (KEPPRA) PO SCH (08:24)
[2021-11-29 08:27] VITALS: BP 88/42
[2021-11-29] MEDS: METOPROLOL TART 25 MG TABLET PO SCH (08:27)
[2021-11-29] MEDS: LIDOCAINE 5% (LIDODERM) PATCH TD SCH (08:58)
[2021-11-29] MEDS: ENTRESTO 24-26MG TABLET (SACUBITRIL/VALSARTAN) PO SCH (08:59)
[2021-11-29] MEDS ORDERED: ENTR1TAB PO (13:16)
[2021-11-29] MEDS ORDERED: LIDO5TD TD (13:16)
[2021-11-29] MEDS ORDERED: TORS20TA2 PO (13:16)
[2021-11-29] MEDS ORDERED: METO1TAB7 PO (13:29)
[2021-11-29] MEDS ORDERED: OMEP-173 PO (13:30)
== END 2021-11-29 15:32 | disposition home health service (06) | DRG 683 ==
LOC: EDBD 03:39 → M ED 03:39 → M ED INP 07:44 → ENRESERV 13:39 → M 4MAIN 14:58 → M MSPAV 11-28 21:15
PROVIDERS: ADMIT General Practice; ATTEND Student in an Organized Health Care Education/Training Program
DX: N17.9 Acute kidney failure, unspecified (principal); I50.22 Chronic systolic (congestive) heart failure; I48.21 Permanent atrial fibrillation; I13.0 Hypertensive heart and chronic kidney disease with heart failure and stage 1 through stage 4 chronic kidney disease, or unspecified chronic kidney disease; J90 Pleural effusion, not elsewhere classified; G62.9 Polyneuropathy, unspecified; Z85.048 Personal history of other malignant neoplasm of rectum, rectosigmoid junction, and anus; Z90.49 Acquired absence of other specified parts of digestive tract; Z92.3 Personal history of irradiation; Z92.21 Personal history of antineoplastic chemotherapy; J44.9 Chronic obstructive pulmonary disease, unspecified; G47.33 Obstructive sleep apnea (adult) (pediatric); E78.5 Hyperlipidemia, unspecified; N18.30 Chronic kidney disease, stage 3 unspecified; E66.9 Obesity, unspecified; G40.909 Epilepsy, unspecified, not intractable, without status epilepticus; Z98.49 Cataract extraction status, unspecified eye; Z87.891 Personal history of nicotine dependence; I87.2 Venous insufficiency (chronic) (peripheral); N40.1 Benign prostatic hyperplasia with lower urinary tract symptoms; Z20.822 Contact with and (suspected) exposure to COVID-19; Z79.01 Long term (current) use of anticoagulants; Z79.899 Other long term (current) drug therapy; I95.1 Orthostatic hypotension; Z99.81 Dependence on supplemental oxygen; T50.2X5A Adverse effect of carbonic-anhydrase inhibitors, benzothiadiazides and other diuretics, initial encounter; K21.9 Gastro-esophageal reflux disease without esophagitis

== ENCOUNTER 2021-12-06 16:51 | Emergency (ER) | payer OTHER ==
[~2021-12-06] VITALS: Ht 170.2 cm; Wt 172.0 kg
[~2021-12-06 16:51] MED LIST changes: +ENTR1TAB PO; +LIDO5TD TD; +OMEP-173 PO; +POTA-150 PO; +TORS20TA2 PO
[2021-12-06 18:04] LABS: BASO # 0.1 10^3/uL (0.0-0.2); BASO % 0.9 % (0.0-1.0); EOS # 0.1 10^3/uL (0.0-0.5); EOS % 1.4 % (0.0-3.0); HEMATOCRIT 38.2 % (42.0-52.0); HEMOGLOBIN 11.8 g/dl (13.5-17.5); LYMPH # 0.6 10^3/uL (1.5-5.0); LYMPH % 10.5 % (24.0-44.0); MEAN CORPUSCULAR HGB CONC 30.9 g/dl (32.0-36.5); MEAN CORPUSCULAR VOLUME 93.9 fl (80.0-96.0); MONO # 0.4 10^3/uL (0.0-0.8); MONO % 6.9 % (2.0-8.0); NEUTROPHILS # 4.7 10^3/uL (1.5-8.5); NEUTROPHILS % 79.8 % (36.0-66.0); PLATELET COUNT, AUTOMATED 190 10^3/uL (150-450); RED BLOOD COUNT 4.07 10^6/uL (4.30-6.10); WHITE BLOOD COUNT 5.8 10^3/uL (4.0-10.0)
[2021-12-06 18:48] LABS: CALCIUM LEVEL 9.2 MG/DL (8.8-10.2); CREATININE FOR GFR 1.83 MG/DL (0.70-1.30); GLOMERULAR FILTRATION RATE 37.6 (>35); POTASSIUM SERUM 5.8 MEQ/L (3.5-5.1)
[2021-12-06 21:26] VITALS: BP 108/62
== END 2021-12-06 21:38 | disposition home or self-care (01) ==
LOC: M ED 16:51
DX: T88.7XXA Unspecified adverse effect of drug or medicament, initial encounter (principal); N17.9 Acute kidney failure, unspecified; I48.91 Unspecified atrial fibrillation; I45.10 Unspecified right bundle-branch block; I51.7 Cardiomegaly; I10 Essential (primary) hypertension; N18.30 Chronic kidney disease, stage 3 unspecified; G47.33 Obstructive sleep apnea (adult) (pediatric); Z79.01 Long term (current) use of anticoagulants; Z79.899 Other long term (current) drug therapy

== ENCOUNTER → 2021-12-21 | Outpatient (REF) | payer MEDICARE, OTHER ==
[2021-12-21 18:25] LABS: PERCENT SATURATION 12.9 % (19.7-50.0)
== END ==
LOC: M LAB REF 17:04
PROVIDERS: ATTEND Internal Medicine
DX: D64.9 Anemia, unspecified (principal)

== ENCOUNTER 2021-12-25 14:18 | Inpatient (IN) | payer MEDICARE, OTHER ==
[~2021-12-25] VITALS: Ht 170.2 cm; Wt 76.8 kg
[2021-12-25 15:39] LABS: BASO % 0.5 % (0.0-1.0); HEMATOCRIT 33.8 % (42.0-52.0); HEMOGLOBIN 10.7 g/dl (13.5-17.5); LYMPH # 0.3 10^3/uL (1.5-5.0); LYMPH % 7.3 % (24.0-44.0); MEAN CORPUSCULAR HEMOGLOBIN 29.6 pg (27.0-33.0); MEAN CORPUSCULAR HGB CONC 31.7 g/dl (32.0-36.5); MEAN CORPUSCULAR VOLUME 93.6 fl (80.0-96.0); MONO # 0.4 10^3/uL (0.0-0.8); MONO % 9.5 % (2.0-8.0); NEUTROPHILS % 82.2 % (36.0-66.0); PLATELET COUNT, AUTOMATED 136 10^3/uL (150-450); RED BLOOD COUNT 3.61 10^6/uL (4.30-6.10); WHITE BLOOD COUNT 3.7 10^3/uL (4.0-10.0)
[2021-12-25 16:12] LABS: ALBUMIN 2.8 GM/DL (3.2-5.2); ALT/SGPT 14 U/L (12-78); BILIRUBIN,DIRECT 0.2 MG/DL (0.0-0.2); BILIRUBIN,TOTAL 0.5 MG/DL (0.2-1.0); BLOOD UREA NITROGEN 29 MG/DL (7-18); CALCIUM LEVEL 8.8 MG/DL (8.8-10.2); CARBON DIOXIDE LEVEL 23 MEQ/L (21-32); CHLORIDE LEVEL 105 MEQ/L (98-107); CREATININE FOR GFR 1.22 MG/DL (0.70-1.30); GLOMERULAR FILTRATION RATE > 60.0 (>35); GLUCOSE, FASTING 108 MG/DL (70-100); NT-PRO BNP 11178 PG/ML (<450); POTASSIUM SERUM 3.5 MEQ/L (3.5-5.1); SODIUM LEVEL 136 MEQ/L (136-145); THYROID STIMULATING HORMONE 0.879 uIU/ML (0.358-3.740); THYROXINE (T4) 5.9 UG/DL (4.5-12.0); TOTAL PROTEIN 7.1 GM/DL (6.4-8.2)
[2021-12-25] MEDS ORDERED: NS 1,000 ML IV ONE (16:20)
[2021-12-25] MEDS ORDERED: NS 1,310 ML in IV 1 EA IV ONE (16:35)
[2021-12-25] MEDS ORDERED: cefTRIAXone SOD 2 GM in D5W MINI-BAG PLUS 50 ML IV ONE (17:50)
[2021-12-25] MEDS ORDERED: guaiFENesin DM LIQ 10ML UD PO PRN (19:00)
[2021-12-25] MEDS ORDERED: TORS20TA2 PO (19:43)
[2021-12-25] MEDS ORDERED: HOME MED LIST COMPLETE! XX SCH (19:45)
[2021-12-25 19:49] LABS: INR 1.38; PROTHROMBIN TIME 17.4 SECONDS (12.7-14.5)
[2021-12-25 19:50] LABS: PARTIAL THROMBOPLASTIN TIME 46.2 SECONDS (25.9-37.0)
[2021-12-25] MEDS: DOCUSATE SODIUM 100MG CAPSULE PO SCH (21:30)
[2021-12-25] MEDS: PRAVASTATIN 20 MG TAB PO SCH (21:30)
[2021-12-25] MEDS: APIXABAN 5 MG TAB (ELIQUIS) PO SCH (21:30)
[2021-12-25] MEDS: TAMSULOSIN 0.4 MG CAP PO SCH (21:30)
[2021-12-25] MEDS: guaiFENesin ER 600 MG TAB PO SCH (21:30)
[2021-12-25] MEDS ORDERED: SODIUM CHLORIDE 0.9% INJ 10 ML SYR IV ONE (22:00)
[2021-12-25] MEDS ORDERED: REMDESIVIR 200 MG in NS 250 ML IV ONE (22:00)
[2021-12-26] VITALS (27 sets, daily range): BP systolic 95–147; BP diastolic 55–84; O2SAT 90–96
[2021-12-26] MEDS: ACETAMINOPHEN TAB 650MG DOSE (2X325MG) PO PRN ×2 (05:04→16:33)
[2021-12-26 06:15] LABS: HEMATOCRIT 32.3 % (42.0-52.0); HEMOGLOBIN 10.1 g/dl (13.5-17.5); MEAN CORPUSCULAR HEMOGLOBIN 29.2 pg (27.0-33.0); MEAN CORPUSCULAR HGB CONC 31.3 g/dl (32.0-36.5); MEAN CORPUSCULAR VOLUME 93.4 fl (80.0-96.0); PLATELET COUNT, AUTOMATED 119 10^3/uL (150-450); RED BLOOD COUNT 3.46 10^6/uL (4.30-6.10); WHITE BLOOD COUNT 3.3 10^3/uL (4.0-10.0)
[2021-12-26 06:51] LABS: ALBUMIN 2.3 GM/DL (3.2-5.2); ALT/SGPT 10 U/L (12-78); BILIRUBIN,DIRECT 0.1 MG/DL (0.0-0.2); BILIRUBIN,TOTAL 0.3 MG/DL (0.2-1.0); BLOOD UREA NITROGEN 23 MG/DL (7-18); CALCIUM LEVEL 8.2 MG/DL (8.8-10.2); CARBON DIOXIDE LEVEL 23 MEQ/L (21-32); CHLORIDE LEVEL 107 MEQ/L (98-107); CREATININE FOR GFR 1.07 MG/DL (0.70-1.30); GLOMERULAR FILTRATION RATE > 60.0 (>35); GLUCOSE, FASTING 92 MG/DL (70-100); MAGNESIUM LEVEL 1.6 MG/DL (1.8-2.4); POTASSIUM SERUM 3.2 MEQ/L (3.5-5.1); SODIUM LEVEL 138 MEQ/L (136-145); TOTAL PROTEIN 6.6 GM/DL (6.4-8.2)
[2021-12-26] MEDS ORDERED: POTASSIUM CHLORIDE 10MEQ SR TABLET PO ONE (07:35)
[2021-12-26] MEDS ORDERED: MAGNESIUM OXIDE 400MG TAB (MAG-OX) PO ONE (07:35)
[2021-12-26] MEDS: METOPROLOL SUCC (TopROL XL) 50MG **XL** TAB PO SCH (09:00)
[2021-12-26] MEDS: IPRATROPIUM 0.5MG/ALBUTEROL 2.5MG INH SOL UD 3ML (DUONEB) NEB SCH ×3 (09:00→21:44)
[2021-12-26] MEDS: DOCUSATE SODIUM 100MG CAPSULE PO SCH ×2 (09:25→21:00)
[2021-12-26] MEDS: levETIRAcetam 250MG TABLET (KEPPRA) PO SCH (09:25)
[2021-12-26] MEDS: guaiFENesin ER 600 MG TAB PO SCH ×2 (09:25→22:11)
[2021-12-26] MEDS: OMEPRAZOLE 20MG CAP PO SCH (09:26)
[2021-12-26] MEDS: APIXABAN 5 MG TAB (ELIQUIS) PO SCH ×2 (09:26→22:11)
[2021-12-26] MEDS: TORSEMIDE 20 MG TAB PO SCH (09:27)
[2021-12-26] MEDS: TAMSULOSIN 0.4 MG CAP PO SCH (22:11)
[2021-12-26] MEDS: REMDESIVIR 100 MG in NS 250 ML IV SCH (22:11)
[2021-12-26] MEDS: PRAVASTATIN 20 MG TAB PO SCH (22:11)
[2021-12-26] MEDS: SODIUM CHLORIDE 0.9% INJ 10 ML SYR IV SCH (23:08)
[2021-12-27] VITALS (33 sets, daily range): BP systolic 102–146; BP diastolic 58–69; O2SAT 94–100
[2021-12-27] MEDS: ACETAMINOPHEN TAB 650MG DOSE (2X325MG) PO PRN (02:43)
[2021-12-27] MEDS: IPRATROPIUM 0.5MG/ALBUTEROL 2.5MG INH SOL UD 3ML (DUONEB) NEB SCH ×4 (02:57→19:42)
[2021-12-27 06:10] LABS: BASO % 0.3 % (0.0-1.0); HEMATOCRIT 31.3 % (42.0-52.0); HEMOGLOBIN 10.1 g/dl (13.5-17.5); LYMPH # 0.3 10^3/uL (1.5-5.0); LYMPH % 6.7 % (24.0-44.0); MEAN CORPUSCULAR HEMOGLOBIN 29.6 pg (27.0-33.0); MEAN CORPUSCULAR HGB CONC 32.3 g/dl (32.0-36.5); MEAN CORPUSCULAR VOLUME 91.8 fl (80.0-96.0); MONO # 0.3 10^3/uL (0.0-0.8); MONO % 7.8 % (2.0-8.0); NEUTROPHILS # 3.1 10^3/uL (1.5-8.5); NEUTROPHILS % 84.1 % (36.0-66.0); PLATELET COUNT, AUTOMATED 121 10^3/uL (150-450); RED BLOOD COUNT 3.41 10^6/uL (4.30-6.10); WHITE BLOOD COUNT 3.7 10^3/uL (4.0-10.0)
[2021-12-27 06:32] LABS: ALBUMIN 2.1 GM/DL (3.2-5.2); BILIRUBIN,TOTAL 0.3 MG/DL (0.2-1.0); CALCIUM LEVEL 7.9 MG/DL (8.8-10.2); CREATININE FOR GFR 1.28 MG/DL (0.70-1.30); GLOMERULAR FILTRATION RATE 56.9 (>35); MAGNESIUM LEVEL 1.5 MG/DL (1.8-2.4); POTASSIUM SERUM 3.2 MEQ/L (3.5-5.1)
[2021-12-27] MEDS ORDERED: POTASSIUM CHLORIDE 10% LIQ 20 MEQ/15 ML UDC PO ONE (06:40)
[2021-12-27] MEDS ORDERED: POTASSIUM CHLORIDE 10MEQ SR TABLET PO ONE ×2 (07:25→10:00)
[2021-12-27] MEDS ORDERED: MAGNESIUM OXIDE 400MG TAB (MAG-OX) PO ONE (08:00)
[2021-12-27] MEDS: METOPROLOL SUCC (TopROL XL) 50MG **XL** TAB PO SCH (09:00)
[2021-12-27] MEDS: guaiFENesin 200 MG TAB PO SCH ×3 (09:34→21:17)
[2021-12-27] MEDS: OMEPRAZOLE 20MG CAP PO SCH (09:34)
[2021-12-27] MEDS: DOCUSATE SODIUM 100MG CAPSULE PO SCH ×2 (09:35→21:16)
[2021-12-27] MEDS: levETIRAcetam 250MG TABLET (KEPPRA) PO SCH (09:35)
[2021-12-27] MEDS: APIXABAN 5 MG TAB (ELIQUIS) PO SCH ×2 (09:36→21:16)
[2021-12-27] MEDS: TORSEMIDE 20 MG TAB PO SCH (09:36)
[2021-12-27] MEDS: SODIUM CHLORIDE HYPERTONIC 3% 15ML NEB SOL INH SCH ×2 (15:58→19:43)
[2021-12-27] MEDS: PRAVASTATIN 20 MG TAB PO SCH (21:16)
[2021-12-27] MEDS: TAMSULOSIN 0.4 MG CAP PO SCH (21:16)
[2021-12-27] MEDS: REMDESIVIR 100 MG in NS 250 ML IV SCH (21:17)
[2021-12-27] MEDS ORDERED: SUCRALFATE 1 GM TAB PO ONE (22:10)
[2021-12-27] MEDS: SODIUM CHLORIDE 0.9% INJ 10 ML SYR IV SCH (23:42)
[2021-12-28] VITALS (15 sets, daily range): BP systolic 90–112; BP diastolic 58–68; O2SAT 95–97
[2021-12-28] MEDS: IPRATROPIUM 0.5MG/ALBUTEROL 2.5MG INH SOL UD 3ML (DUONEB) NEB SCH (01:39)
[2021-12-28] MEDS: SODIUM CHLORIDE HYPERTONIC 3% 15ML NEB SOL INH SCH (01:40)
[2021-12-28] MEDS: COMBIVENT RESPIMAT 100-20MCG INHALER 4GM INH SCH ×4 (04:00→16:01)
[2021-12-28 07:21] LABS: BILIRUBIN,TOTAL 0.2 MG/DL (0.2-1.0); CREATININE FOR GFR 1.37 MG/DL (0.70-1.30); GLOMERULAR FILTRATION RATE 52.6 (>35); MAGNESIUM LEVEL 1.6 MG/DL (1.8-2.4); POTASSIUM SERUM 3.3 MEQ/L (3.5-5.1); TOTAL PROTEIN 6.2 GM/DL (6.4-8.2)
[2021-12-28 07:25] LABS: BASO % 0.3 % (0.0-1.0); EOS % 0.9 % (0.0-3.0); HEMATOCRIT 31.5 % (42.0-52.0); LYMPH # 0.5 10^3/uL (1.5-5.0); MEAN CORPUSCULAR HEMOGLOBIN 29.2 pg (27.0-33.0); MEAN CORPUSCULAR HGB CONC 31.7 g/dl (32.0-36.5); MEAN CORPUSCULAR VOLUME 92.1 fl (80.0-96.0); MONO # 0.3 10^3/uL (0.0-0.8); MONO % 8.1 % (2.0-8.0); NEUTROPHILS # 2.6 10^3/uL (1.5-8.5); NEUTROPHILS % 74.8 % (36.0-66.0); PLATELET COUNT, AUTOMATED 123 10^3/uL (150-450); RED BLOOD COUNT 3.42 10^6/uL (4.30-6.10); WHITE BLOOD COUNT 3.5 10^3/uL (4.0-10.0)
[2021-12-28] MEDS ORDERED: MAG SULF 1GM/100ML (MAG RUN) 1 GM in IV 1 EA IV ONE (08:00)
[2021-12-28] MEDS: DOCUSATE SODIUM 100MG CAPSULE PO SCH (08:13)
[2021-12-28] MEDS: APIXABAN 5 MG TAB (ELIQUIS) PO SCH (08:13)
[2021-12-28] MEDS: guaiFENesin 200 MG TAB PO SCH ×2 (08:13→15:24)
[2021-12-28] MEDS: TORSEMIDE 20 MG TAB PO SCH (08:14)
[2021-12-28] MEDS: METOPROLOL SUCC (TopROL XL) 50MG **XL** TAB PO SCH (08:14)
[2021-12-28] MEDS: levETIRAcetam 250MG TABLET (KEPPRA) PO SCH (08:14)
[2021-12-28] MEDS: OMEPRAZOLE 20MG CAP PO SCH (08:14)
[2021-12-28] MEDS: ACETAMINOPHEN TAB 650MG DOSE (2X325MG) PO PRN (08:23)
[2021-12-28] MEDS ORDERED: POTASSIUM CHLORIDE 10MEQ SR TABLET PO ONE (09:00)
[2021-12-28 14:01] LABS: CREATININE FOR GFR 1.38 MG/DL (0.70-1.30); GLOMERULAR FILTRATION RATE 52.1 (>35); POTASSIUM SERUM 3.5 MEQ/L (3.5-5.1)
[2021-12-28] MEDS ORDERED: NS 1,000 ML IV SCH (15:00)
[2021-12-29] MEDS ORDERED: TORSEMIDE 10 MG TABLET PO SCH (09:00)
== END 2021-12-28 17:42 | disposition home or self-care (01) | DRG 178 ==
LOC: EDBD 14:18 → M ED 14:18 → M ED INP 18:47 → M PCU 22:21
PROVIDERS: ADMIT Internal Medicine; ATTEND Internal Medicine
PROC: XW033E5 Introduction of Remdesivir Anti-infective into Peripheral Vein, Percutaneous Approach, New Technology Group 5 (ICD-10-PCS; principal; 2021-12-25)
DX: U07.1 COVID-19 (principal); I50.22 Chronic systolic (congestive) heart failure; L97.919 Non-pressure chronic ulcer of unspecified part of right lower leg with unspecified severity; L97.929 Non-pressure chronic ulcer of unspecified part of left lower leg with unspecified severity; I13.0 Hypertensive heart and chronic kidney disease with heart failure and stage 1 through stage 4 chronic kidney disease, or unspecified chronic kidney disease; N17.9 Acute kidney failure, unspecified; Z90.49 Acquired absence of other specified parts of digestive tract; Z85.048 Personal history of other malignant neoplasm of rectum, rectosigmoid junction, and anus; Z92.3 Personal history of irradiation; Z92.21 Personal history of antineoplastic chemotherapy; I48.91 Unspecified atrial fibrillation; Z95.0 Presence of cardiac pacemaker; Z79.01 Long term (current) use of anticoagulants; E78.5 Hyperlipidemia, unspecified; G62.9 Polyneuropathy, unspecified; N18.30 Chronic kidney disease, stage 3 unspecified; G40.909 Epilepsy, unspecified, not intractable, without status epilepticus; Z98.49 Cataract extraction status, unspecified eye; Z87.891 Personal history of nicotine dependence; I95.9 Hypotension, unspecified; N40.0 Benign prostatic hyperplasia without lower urinary tract symptoms; K21.9 Gastro-esophageal reflux disease without esophagitis; Z79.899 Other long term (current) drug therapy; I87.8 Other specified disorders of veins

== ENCOUNTER → 2022-12-06 | Outpatient (REF) | payer MEDICARE, OTHER ==
[~2022-12-06] MED LIST changes: -K-TA10TA2 PO; +POTA-165 PO
== END ==
LOC: M LAB REF 16:20
PROVIDERS: ATTEND Nurse Practitioner Family
DX: N18.31 Chronic kidney disease, stage 3a (principal); F32.9 Major depressive disorder, single episode, unspecified

== ENCOUNTER 2023-01-05 08:36 | Emergency (ER) | payer MEDICARE, OTHER ==
[~2023-01-05] VITALS: Ht 170.2 cm; Wt 77.3 kg
[2023-01-05] MEDS ORDERED: NS 1,000 ML IV SCH (09:35)
[2023-01-05 10:26] LABS: BASO % 0.6 % (0.0-1.0); EOS # 0.1 10^3/uL (0.0-0.5); EOS % 0.7 % (0.0-3.0); HEMATOCRIT 34.3 % (42.0-52.0); HEMOGLOBIN 11.2 g/dl (13.5-17.5); LYMPH # 0.7 10^3/uL (1.5-5.0); LYMPH % 9.3 % (24.0-44.0); MEAN CORPUSCULAR HEMOGLOBIN 30.9 pg (27.0-33.0); MEAN CORPUSCULAR HGB CONC 32.7 g/dl (32.0-36.5); MEAN CORPUSCULAR VOLUME 94.8 fl (80.0-96.0); MONO # 0.5 10^3/uL (0.0-0.8); MONO % 7.1 % (2.0-8.0); NEUTROPHILS # 5.7 10^3/uL (1.5-8.5); NEUTROPHILS % 80.9 % (36.0-66.0); PLATELET COUNT, AUTOMATED 187 10^3/uL (150-450); RED BLOOD COUNT 3.62 10^6/uL (4.30-6.10); WHITE BLOOD COUNT 7.1 10^3/uL (4.0-10.0)
[2023-01-05] MEDS ORDERED: BACTRIM 160MG/800MG DS TAB PO ONE (12:10)
[2023-01-05] MEDS ORDERED: SULF1TAB23 PO (12:16)
[2023-01-05 13:23] VITALS: BP 144/71; TEMP 98.5; O2SAT 99
== END 2023-01-05 13:26 | disposition home or self-care (01) ==
LOC: EDBD 08:36 → M ED 08:36
DX: N30.00 Acute cystitis without hematuria (principal); I12.9 Hypertensive chronic kidney disease with stage 1 through stage 4 chronic kidney disease, or unspecified chronic kidney disease; I48.91 Unspecified atrial fibrillation; I50.20 Unspecified systolic (congestive) heart failure; N40.0 Benign prostatic hyperplasia without lower urinary tract symptoms; N18.30 Chronic kidney disease, stage 3 unspecified; G40.909 Epilepsy, unspecified, not intractable, without status epilepticus; I73.9 Peripheral vascular disease, unspecified; Z79.01 Long term (current) use of anticoagulants; Z87.891 Personal history of nicotine dependence; Z79.899 Other long term (current) drug therapy

== ENCOUNTER → 2023-03-17 | Outpatient (REF) ==
[~2023-03-17] MED LIST changes: +BACI1CAP PO; +DOXY-444 PO; +ELIQ2.5T PO; +SULF1TAB23 PO
== END ==
PROVIDERS: ATTEND Internal Medicine
DX: N17.9 Acute kidney failure, unspecified (principal); Z53.8 Procedure and treatment not carried out for other reasons

== ENCOUNTER → 2023-03-19 | Outpatient (REF) | payer MEDICARE, OTHER | PROVIDERS: ATTEND Internal Medicine | DX: I48.91 Unspecified atrial fibrillation (principal); Z53.8 Procedure and treatment not carried out for other reasons ==

== ENCOUNTER → 2023-03-24 | Outpatient (REF) | payer MEDICARE, OTHER ==
[~2023-03-24] MED LIST changes: +ACET-907 PO; +CERA355L TOP; +FLEEENE12 PR; +JUVE1POW PO; +LACT237L59 PO; +MILKSUS3 PO; +OMEP1CAP73 PO; +POTA10TA67 PO; +TRAN1DIS4 TOP
== END ==
PROVIDERS: ATTEND Internal Medicine
DX: N17.9 Acute kidney failure, unspecified (principal); Z53.8 Procedure and treatment not carried out for other reasons

== ENCOUNTER → 2023-04-04 | Outpatient (REF) ==
[2023-04-04 09:57] LABS: HEMATOCRIT 40.6 % (42.0-52.0); HEMOGLOBIN 12.9 g/dl (13.5-17.5); MEAN CORPUSCULAR HEMOGLOBIN 30.1 pg (27.0-33.0); MEAN CORPUSCULAR HGB CONC 31.8 g/dl (32.0-36.5); MEAN CORPUSCULAR VOLUME 94.6 fl (80.0-96.0); PLATELET COUNT, AUTOMATED 204 10^3/uL (150-450); RED BLOOD COUNT 4.29 10^6/uL (4.30-6.10); WHITE BLOOD COUNT 4.8 10^3/uL (4.0-10.0)
[2023-04-04 10:21] LABS: URIC ACID 8.6 MG/DL (3.7-9.2)
[2023-04-04 10:46] LABS: ALBUMIN 2.3 G/DL (3.2-5.2); CALCIUM LEVEL 8.5 MG/DL (8.3-10.6); CREATININE FOR GFR 1.29 MG/DL (0.70-1.30); GLOMERULAR FILTRATION RATE 56.2 (>35); MAGNESIUM LEVEL 1.4 MG/DL (1.8-2.4); PHOSPHORUS LEVEL 3.3 MG/DL (2.4-5.1); POTASSIUM SERUM 2.9 MMOL/L (3.5-5.1); PTH INTACT 54.1 PG/ML (18.5-88.0)
== END ==
PROVIDERS: ATTEND Physician Assistant
DX: N18.9 Chronic kidney disease, unspecified (principal)

== ENCOUNTER → 2023-04-07 | Outpatient (REF) | payer MEDICARE, OTHER ==
[~2023-04-07] MED LIST changes: +ATIV1TAB10 PO; +HYOS125TA PO; +MORP1SOL5 PO
[2023-04-07 10:33] LABS: BLOOD UREA NITROGEN 28 MG/DL (9-23); CALCIUM LEVEL 8.4 MG/DL (8.3-10.6); CARBON DIOXIDE LEVEL 30 MMOL/L (20-31); CHLORIDE LEVEL 109 MMOL/L (98-107); CREATININE FOR GFR 1.19 MG/DL (0.70-1.30); GLOMERULAR FILTRATION RATE > 60.0 (>35); GLUCOSE, FASTING 84 MG/DL (74-106); POTASSIUM SERUM 3.8 MMOL/L (3.5-5.1); SODIUM LEVEL 145 MMOL/L (136-145)
== END ==
PROVIDERS: ATTEND Internal Medicine
DX: E87.6 Hypokalemia (principal)

== ENCOUNTER 2023-04-10 21:08 | Inpatient (IN) | payer MEDICARE, OTHER ==
[~2023-04-10] VITALS: Ht 172.7 cm; Wt 74.7 kg
[~2023-04-10 21:08] MED LIST changes: -ACET-907 PO; -ATIV1TAB10 PO; -CERA355L TOP; -FLEEENE12 PR; -HYOS125TA PO; -JUVE1POW PO; -LACT237L59 PO; -MILKSUS3 PO; -MORP1SOL5 PO; -OMEP1CAP73 PO; -POTA10TA67 PO; -TRAN1DIS4 TOP
[2023-04-10] MEDS ORDERED: NS 1,000 ML IV ONE (21:30)
[2023-04-10 22:09] LABS: BASO % 0.5 % (0.0-1.0); EOS % 0.1 % (0.0-3.0); HEMATOCRIT 32.1 % (42.0-52.0); HEMOGLOBIN 10.4 g/dl (13.5-17.5); LYMPH # 0.7 10^3/uL (1.5-5.0); LYMPH % 8.5 % (24.0-44.0); MEAN CORPUSCULAR HEMOGLOBIN 30.5 pg (27.0-33.0); MEAN CORPUSCULAR HGB CONC 32.4 g/dl (32.0-36.5); MEAN CORPUSCULAR VOLUME 94.1 fl (80.0-96.0); MONO # 0.4 10^3/uL (0.0-0.8); MONO % 4.9 % (2.0-8.0); NEUTROPHILS # 6.8 10^3/uL (1.5-8.5); PLATELET COUNT, AUTOMATED 193 10^3/uL (150-450); RED BLOOD COUNT 3.41 10^6/uL (4.30-6.10)
[2023-04-10 22:31] LABS: LIPASE 25 U/L (12-53)
[2023-04-10 22:33] LABS: ALBUMIN 1.9 G/DL (3.2-5.2); ALKALINE PHOSPHATASE 60 U/L (46-116); ALT/SGPT 14 U/L (7.0-40); AST/SGOT 15 U/L (<34); BILIRUBIN,DIRECT 0.3 MG/DL (<0.4); BILIRUBIN,TOTAL 0.8 MG/DL (0.3-1.2); BLOOD UREA NITROGEN 22 MG/DL (9-23); CALCIUM LEVEL 7.6 MG/DL (8.3-10.6); CARBON DIOXIDE LEVEL 24 MMOL/L (20-31); CHLORIDE LEVEL 111 MMOL/L (98-107); CREATININE FOR GFR 1.18 MG/DL (0.70-1.30); GLOMERULAR FILTRATION RATE > 60.0 (>35); GLUCOSE, FASTING 108 MG/DL (74-106); POTASSIUM SERUM 3.8 MMOL/L (3.5-5.1); SODIUM LEVEL 142 MMOL/L (136-145); TOTAL PROTEIN 5.4 G/DL (5.7-8.2)
[2023-04-10 22:39] LABS: PROCALCITONIN 0.27 ng/ml
[2023-04-10] MEDS ORDERED: ISOVUE-370 76% 100ML VIAL As Ordered ONE (23:15)
[2023-04-11] MEDS ORDERED: PIPERACILLIN/TAZOBACTAM SOD 4.5 GM in D5W MINI-BAG PLUS 50 ML IV ONE (01:05)
[2023-04-11] MEDS ORDERED: NS 1,000 ML IV ONE (01:50)
[2023-04-11] MEDS ORDERED: ALBUTEROL SULFATE 2.5MG/0.5ML INH NEB SOLN NEB PRN (03:05)
[2023-04-11] MEDS ORDERED: GLUCOSE 4GM CHEW TABLET PO PRN (03:05)
[2023-04-11] MEDS ORDERED: GLUCAGON INJ 1MG VIAL SC PRN (03:05)
[2023-04-11] MEDS ORDERED: DEXTROSE 50% 50ML SYRINGE IV PRN (03:05)
[2023-04-11] MEDS ORDERED: ONDANSETRON 4MG 2ML VIAL IV PRN (03:05)
[2023-04-11] MEDS ORDERED: UNRESOLVED CLARIFICATION ENTRY XX STA (03:58)
[2023-04-11] MEDS ORDERED: FLEEENE12 PR (04:08)
[2023-04-11] MEDS ORDERED: ACET-907 PO (04:08)
[2023-04-11] MEDS ORDERED: MILKSUS3 PO (04:08)
[2023-04-11] MEDS ORDERED: OMEP1CAP73 PO (04:08)
[2023-04-11] MEDS ORDERED: CERA355L TOP (04:08)
[2023-04-11] MEDS ORDERED: LACT237L59 PO (04:08)
[2023-04-11] MEDS ORDERED: POTA10TA67 PO (04:08)
[2023-04-11] MEDS ORDERED: JUVE1POW PO (04:08)
[2023-04-11] MEDS ORDERED: TRAN1DIS4 TOP (04:08)
[2023-04-11] MEDS ORDERED: HOME MED LIST COMPLETE! XX SCH (04:10)
[2023-04-11] MEDS: NS 1,000 ML IV SCH ×2 (05:11→14:05)
[2023-04-11] MEDS: INSULIN LISPRO (NovoLOG) PER UNIT SC SCH ×3 (07:03→17:53)
[2023-04-11] MEDS: PIPERACILLIN/TAZOBACTAM SOD 3.375 GM in D5W MINI-BAG PLUS 50 ML IV SCH ×3 (08:23→20:02)
[2023-04-11] MEDS: IPRATROPIUM 0.5MG/ALBUTEROL 2.5MG INH SOL UD 3ML (DUONEB) NEB SCH ×3 (08:26→19:19)
[2023-04-11] MEDS ORDERED: ENOXAPARIN 60MG/0.6ML SYRINGE (J1650 PER 10MG) SC SCH (09:00)
[2023-04-11] MEDS: levETIRAcetam INJection 750 MG in D5W 100 ML IV SCH (10:00)
[2023-04-11] MEDS ORDERED: VARIBAR PUDDING 40% w/v 230ML TUBE As Ordered ONE (10:27)
[2023-04-11] MEDS ORDERED: VARIBAR NECTAR 40% w/v 240ML SUSP BTL As Ordered ONE (10:27)
[2023-04-11] MEDS ORDERED: E-Z-PAQUE 96% w/w SUSP 176GM BTL As Ordered ONE (10:27)
[2023-04-11] MEDS ORDERED: BARIUM SULFATE 700 MG TABLET (E-Z-DISK) As Ordered ONE (10:27)
[2023-04-11] MEDS ORDERED: SALIVA SUBSTITUTE(MOUTHKOTE) BTL MT PRN (11:40)
[2023-04-11 17:23] VITALS: BP 109/67; TEMP 99; O2SAT 97
[2023-04-11 20:00] VITALS: BP 107/65; TEMP 96.7; O2SAT 98
[2023-04-12] MEDS: VANICREAM MOISTURIZING SKIN CREAM 113GM TUBE TOP SCH ×3 (00:10→19:46)
[2023-04-12] MEDS: IPRATROPIUM 0.5MG/ALBUTEROL 2.5MG INH SOL UD 3ML (DUONEB) NEB SCH ×4 (01:13→20:24)
[2023-04-12] MEDS: NS 1,000 ML IV SCH ×3 (02:22→19:45)
[2023-04-12] MEDS: PIPERACILLIN/TAZOBACTAM SOD 3.375 GM in D5W MINI-BAG PLUS 50 ML IV SCH ×4 (02:22→19:45)
[2023-04-12 06:00] VITALS: BP 116/73; TEMP 98.1; O2SAT 98
[2023-04-12 07:12] LABS: BLOOD UREA NITROGEN 14 MG/DL (9-23); CALCIUM LEVEL 7.5 MG/DL (8.3-10.6); CARBON DIOXIDE LEVEL 25 MMOL/L (20-31); CHLORIDE LEVEL 111 MMOL/L (98-107); CREATININE FOR GFR 1.06 MG/DL (0.70-1.30); GLOMERULAR FILTRATION RATE > 60.0 (>35); GLUCOSE, FASTING 98 MG/DL (74-106); POTASSIUM SERUM 3.2 MMOL/L (3.5-5.1); SODIUM LEVEL 142 MMOL/L (136-145)
[2023-04-12] MEDS: levETIRAcetam INJection 750 MG in D5W 100 ML IV SCH (10:05)
[2023-04-12] MEDS ORDERED: POTASSIUM CHLORIDE 10MEQ SR TABLET PO ONE (12:00)
[2023-04-12 14:00] VITALS: BP 112/68; TEMP 98.2; O2SAT 97
[2023-04-12 20:29] VITALS: BP 116/80; TEMP 98.6; O2SAT 98
[2023-04-13] MEDS: NS 1,000 ML IV SCH ×2 (00:53→14:22)
[2023-04-13] MEDS: IPRATROPIUM 0.5MG/ALBUTEROL 2.5MG INH SOL UD 3ML (DUONEB) NEB SCH ×4 (01:29→19:42)
[2023-04-13] MEDS: PIPERACILLIN/TAZOBACTAM SOD 3.375 GM in D5W MINI-BAG PLUS 50 ML IV SCH ×3 (02:13→14:22)
[2023-04-13 06:28] VITALS: BP 118/81; TEMP 98.4; O2SAT 96
[2023-04-13] MEDS: VANICREAM MOISTURIZING SKIN CREAM 113GM TUBE TOP SCH ×2 (08:27→20:41)
[2023-04-13] MEDS: POTASSIUM CHLORIDE 10% LIQ 20MEQ/15ML UDC PO SCH ×2 (09:00→21:00)
[2023-04-13] MEDS: levETIRAcetam INJection 750 MG in D5W 100 ML IV SCH (10:23)
[2023-04-13 13:27] LABS: BASO % 0.4 % (0.0-1.0); EOS # 0.1 10^3/uL (0.0-0.5); EOS % 1.5 % (0.0-3.0); HEMATOCRIT 29.4 % (42.0-52.0); HEMOGLOBIN 9.6 g/dl (13.5-17.5); LYMPH # 0.4 10^3/uL (1.5-5.0); LYMPH % 8.1 % (24.0-44.0); MEAN CORPUSCULAR HEMOGLOBIN 30.6 pg (27.0-33.0); MEAN CORPUSCULAR HGB CONC 32.7 g/dl (32.0-36.5); MEAN CORPUSCULAR VOLUME 93.6 fl (80.0-96.0); MONO # 0.4 10^3/uL (0.0-0.8); MONO % 7.5 % (2.0-8.0); NEUTROPHILS % 81.9 % (36.0-66.0); PLATELET COUNT, AUTOMATED 183 10^3/uL (150-450); RED BLOOD COUNT 3.14 10^6/uL (4.30-6.10); WHITE BLOOD COUNT 4.8 10^3/uL (4.0-10.0)
[2023-04-13 13:51] LABS: BLOOD UREA NITROGEN 9 MG/DL (9-23); CALCIUM LEVEL 7.5 MG/DL (8.3-10.6); CARBON DIOXIDE LEVEL 23 MMOL/L (20-31); CHLORIDE LEVEL 115 MMOL/L (98-107); CREATININE FOR GFR 0.83 MG/DL (0.70-1.30); GLOMERULAR FILTRATION RATE > 60.0 (>35); GLUCOSE, FASTING 106 MG/DL (74-106); MAGNESIUM LEVEL 1.3 MG/DL (1.8-2.4); POTASSIUM SERUM 3.6 MMOL/L (3.5-5.1); SODIUM LEVEL 143 MMOL/L (136-145)
[2023-04-13 14:00] VITALS: BP 117/80; TEMP 98.8; O2SAT 98
[2023-04-13] MEDS: MAG SULF 1GM/100ML (MAG RUN) 1 GM in IV 1 EA IV SCH ×2 (16:17→17:17)
[2023-04-13] MEDS: ERTAPENEM SODIUM 1 GM in NS MINI-BAG PLUS 50 ML IV SCH (18:36)
[2023-04-13] MEDS ORDERED: LIDOCAINE W/EPINEPHRINE 1% 20ML VIAL SC ONE (18:50)
[2023-04-13] MEDS ORDERED: SILVER NITRATE APPLICATOR (1 = QTY 10) As Ordered ONE (18:53)
[2023-04-13] MEDS ORDERED: SILVER NITRATE APPLICATOR (1 = QTY 10) ONE (18:53)
[2023-04-13] MEDS ORDERED: OXYMETAZOLINE 0.05% NASAL SPRAY (AFRIN) As Ordered ONE (18:54)
[2023-04-13] MEDS ORDERED: OXYMETAZOLINE 0.05% NASAL SPRAY (AFRIN) ONE ×2 (18:54→19:25)
[2023-04-13] MEDS ORDERED: SILVER NITRATE APPLICATOR (1 = QTY 10) TOP ONE ×2 (19:20→19:25)
[2023-04-13] MEDS ORDERED: MORPHINE 2 MG/ML 1ML VIAL IV PRN (20:10)
[2023-04-13] MEDS ORDERED: KCL 20MEQ IN 100ML SWI (KRUN) 20 MEQ in IV 1 EA IV SCH ×4 (21:05→22:00)
[2023-04-13] MEDS ORDERED: KCL 10MEQ/100ML SWI (KRUN) 10 MEQ in IV 1 EA IV ONE ×2 (22:00→23:00)
[2023-04-14] MEDS ORDERED: KCL 10MEQ/100ML SWI (KRUN) 10 MEQ in IV 1 EA IV ONE ×3 (01:00)
[2023-04-14] MEDS: IPRATROPIUM 0.5MG/ALBUTEROL 2.5MG INH SOL UD 3ML (DUONEB) NEB SCH ×4 (01:59→18:58)
[2023-04-14] MEDS: NS 1,000 ML IV SCH ×3 (02:11→22:04)
[2023-04-14 06:00] VITALS: BP 145/82; TEMP 98.8; O2SAT 96
[2023-04-14 06:52] LABS: BASO % 0.3 % (0.0-1.0); EOS # 0.1 10^3/uL (0.0-0.5); EOS % 1.7 % (0.0-3.0); HEMATOCRIT 31.6 % (42.0-52.0); HEMOGLOBIN 10.3 g/dl (13.5-17.5); LYMPH # 0.4 10^3/uL (1.5-5.0); LYMPH % 7.3 % (24.0-44.0); MEAN CORPUSCULAR HEMOGLOBIN 30.6 pg (27.0-33.0); MEAN CORPUSCULAR HGB CONC 32.6 g/dl (32.0-36.5); MEAN CORPUSCULAR VOLUME 93.8 fl (80.0-96.0); MONO # 0.4 10^3/uL (0.0-0.8); MONO % 6.9 % (2.0-8.0); NEUTROPHILS # 4.8 10^3/uL (1.5-8.5); NEUTROPHILS % 82.9 % (36.0-66.0); PLATELET COUNT, AUTOMATED 198 10^3/uL (150-450); RED BLOOD COUNT 3.37 10^6/uL (4.30-6.10); WHITE BLOOD COUNT 5.8 10^3/uL (4.0-10.0)
[2023-04-14 07:21] LABS: BLOOD UREA NITROGEN 7 MG/DL (9-23); CALCIUM LEVEL 7.8 MG/DL (8.3-10.6); CARBON DIOXIDE LEVEL 23 MMOL/L (20-31); CHLORIDE LEVEL 113 MMOL/L (98-107); CREATININE FOR GFR 0.92 MG/DL (0.70-1.30); GLOMERULAR FILTRATION RATE > 60.0 (>35); GLUCOSE, FASTING 87 MG/DL (74-106); MAGNESIUM LEVEL 1.8 MG/DL (1.8-2.4); POTASSIUM SERUM 4.1 MMOL/L (3.5-5.1); SODIUM LEVEL 142 MMOL/L (136-145)
[2023-04-14] MEDS: POTASSIUM CHLORIDE 10% LIQ 20MEQ/15ML UDC PO SCH ×2 (08:31→20:37)
[2023-04-14] MEDS: VANICREAM MOISTURIZING SKIN CREAM 113GM TUBE TOP SCH ×2 (08:59→22:05)
[2023-04-14] MEDS: levETIRAcetam INJection 750 MG in D5W 100 ML IV SCH (08:59)
[2023-04-14 14:00] VITALS: BP 138/78; TEMP 99.5; O2SAT 89
[2023-04-14] MEDS: ERTAPENEM SODIUM 1 GM in NS MINI-BAG PLUS 50 ML IV SCH (16:32)
[2023-04-14 21:57] VITALS: BP 117/77; TEMP 99; O2SAT 98
[2023-04-15] MEDS: IPRATROPIUM 0.5MG/ALBUTEROL 2.5MG INH SOL UD 3ML (DUONEB) NEB SCH ×4 (01:10→19:14)
[2023-04-15 06:00] VITALS: BP 124/92; TEMP 98.6; O2SAT 95
[2023-04-15 06:27] LABS: BASO % 0.6 % (0.0-1.0); EOS # 0.1 10^3/uL (0.0-0.5); EOS % 1.1 % (0.0-3.0); HEMATOCRIT 32.6 % (42.0-52.0); HEMOGLOBIN 10.6 g/dl (13.5-17.5); LYMPH # 0.5 10^3/uL (1.5-5.0); LYMPH % 8.5 % (24.0-44.0); MEAN CORPUSCULAR HEMOGLOBIN 30.6 pg (27.0-33.0); MEAN CORPUSCULAR HGB CONC 32.5 g/dl (32.0-36.5); MEAN CORPUSCULAR VOLUME 94.2 fl (80.0-96.0); MONO # 0.4 10^3/uL (0.0-0.8); MONO % 6.4 % (2.0-8.0); NEUTROPHILS # 5.1 10^3/uL (1.5-8.5); NEUTROPHILS % 82.6 % (36.0-66.0); PLATELET COUNT, AUTOMATED 196 10^3/uL (150-450); RED BLOOD COUNT 3.46 10^6/uL (4.30-6.10); WHITE BLOOD COUNT 6.2 10^3/uL (4.0-10.0)
[2023-04-15 06:49] LABS: BLOOD UREA NITROGEN 7 MG/DL (9-23); CALCIUM LEVEL 7.9 MG/DL (8.3-10.6); CARBON DIOXIDE LEVEL 25 MMOL/L (20-31); CHLORIDE LEVEL 111 MMOL/L (98-107); CREATININE FOR GFR 0.84 MG/DL (0.70-1.30); GLOMERULAR FILTRATION RATE > 60.0 (>35); GLUCOSE, FASTING 85 MG/DL (74-106); MAGNESIUM LEVEL 1.8 MG/DL (1.8-2.4); POTASSIUM SERUM 3.8 MMOL/L (3.5-5.1); SODIUM LEVEL 142 MMOL/L (136-145)
[2023-04-15] MEDS: NS 1,000 ML IV SCH ×3 (08:27→19:18)
[2023-04-15] MEDS: POTASSIUM CHLORIDE 10% LIQ 20MEQ/15ML UDC PO SCH ×2 (08:28→19:21)
[2023-04-15] MEDS: levETIRAcetam INJection 750 MG in D5W 100 ML IV SCH (10:16)
[2023-04-15] MEDS: VANICREAM MOISTURIZING SKIN CREAM 113GM TUBE TOP SCH ×2 (10:17→21:33)
[2023-04-15 14:00] VITALS: BP 153/101; TEMP 99.7; O2SAT 93
[2023-04-15 15:10] VITALS: BP 128/70
[2023-04-15] MEDS: ERTAPENEM SODIUM 1 GM in NS MINI-BAG PLUS 50 ML IV SCH (17:10)
[2023-04-15 21:33] VITALS: BP 134/89; TEMP 99; O2SAT 94
[2023-04-16] MEDS: IPRATROPIUM 0.5MG/ALBUTEROL 2.5MG INH SOL UD 3ML (DUONEB) NEB SCH ×4 (02:39→19:42)
[2023-04-16 06:28] LABS: BASO # 0.1 10^3/uL (0.0-0.2); BASO % 0.8 % (0.0-1.0); EOS # 0.1 10^3/uL (0.0-0.5); EOS % 0.9 % (0.0-3.0); HEMATOCRIT 32.4 % (42.0-52.0); HEMOGLOBIN 10.5 g/dl (13.5-17.5); LYMPH # 0.5 10^3/uL (1.5-5.0); LYMPH % 7.9 % (24.0-44.0); MEAN CORPUSCULAR HEMOGLOBIN 30.6 pg (27.0-33.0); MEAN CORPUSCULAR HGB CONC 32.4 g/dl (32.0-36.5); MEAN CORPUSCULAR VOLUME 94.5 fl (80.0-96.0); MONO # 0.4 10^3/uL (0.0-0.8); MONO % 5.8 % (2.0-8.0); NEUTROPHILS # 5.5 10^3/uL (1.5-8.5); NEUTROPHILS % 83.5 % (36.0-66.0); PLATELET COUNT, AUTOMATED 182 10^3/uL (150-450); RED BLOOD COUNT 3.43 10^6/uL (4.30-6.10); WHITE BLOOD COUNT 6.6 10^3/uL (4.0-10.0)
[2023-04-16 06:49] LABS: BLOOD UREA NITROGEN 8 MG/DL (9-23); CALCIUM LEVEL 7.6 MG/DL (8.3-10.6); CARBON DIOXIDE LEVEL 22 MMOL/L (20-31); CHLORIDE LEVEL 110 MMOL/L (98-107); CREATININE FOR GFR 0.78 MG/DL (0.70-1.30); GLOMERULAR FILTRATION RATE > 60.0 (>35); GLUCOSE, FASTING 75 MG/DL (74-106); MAGNESIUM LEVEL 1.8 MG/DL (1.8-2.4); POTASSIUM SERUM 3.5 MMOL/L (3.5-5.1); SODIUM LEVEL 140 MMOL/L (136-145)
[2023-04-16 07:03] VITALS: BP 133/92; TEMP 98.8; O2SAT 95
[2023-04-16] MEDS: POTASSIUM CHLORIDE 10% LIQ 20MEQ/15ML UDC PO SCH ×3 (09:40→21:00)
[2023-04-16] MEDS: VANICREAM MOISTURIZING SKIN CREAM 113GM TUBE TOP SCH ×2 (09:41→21:19)
[2023-04-16] MEDS: levETIRAcetam INJection 750 MG in D5W 100 ML IV SCH (09:41)
[2023-04-16 14:00] VITALS: BP 135/91; TEMP 98.2; O2SAT 94
[2023-04-16] MEDS ORDERED: FUROSEMIDE 40MG/4ML VIAL IV ONE (14:55)
[2023-04-16] MEDS: ERTAPENEM SODIUM 1 GM in NS MINI-BAG PLUS 50 ML IV SCH (16:47)
[2023-04-16 19:24] VITALS: BP 134/90; TEMP 98.3; O2SAT 95
[2023-04-17] MEDS: IPRATROPIUM 0.5MG/ALBUTEROL 2.5MG INH SOL UD 3ML (DUONEB) NEB SCH ×4 (01:28→19:17)
[2023-04-17 05:15] VITALS: BP 113/74; TEMP 97.9; O2SAT 94
[2023-04-17 06:33] LABS: BASO % 0.7 % (0.0-1.0); EOS # 0.1 10^3/uL (0.0-0.5); EOS % 1.8 % (0.0-3.0); HEMATOCRIT 32.7 % (42.0-52.0); HEMOGLOBIN 10.8 g/dl (13.5-17.5); LYMPH # 0.5 10^3/uL (1.5-5.0); LYMPH % 8.5 % (24.0-44.0); MEAN CORPUSCULAR HEMOGLOBIN 30.9 pg (27.0-33.0); MEAN CORPUSCULAR VOLUME 93.4 fl (80.0-96.0); MONO # 0.5 10^3/uL (0.0-0.8); MONO % 7.4 % (2.0-8.0); NEUTROPHILS # 4.9 10^3/uL (1.5-8.5); NEUTROPHILS % 80.6 % (36.0-66.0); PLATELET COUNT, AUTOMATED 201 10^3/uL (150-450); WHITE BLOOD COUNT 6.1 10^3/uL (4.0-10.0)
[2023-04-17 06:54] LABS: BLOOD UREA NITROGEN 8 MG/DL (9-23); CALCIUM LEVEL 8.2 MG/DL (8.3-10.6); CARBON DIOXIDE LEVEL 27 MMOL/L (20-31); CHLORIDE LEVEL 109 MMOL/L (98-107); CREATININE FOR GFR 0.82 MG/DL (0.70-1.30); GLOMERULAR FILTRATION RATE > 60.0 (>35); GLUCOSE, FASTING 74 MG/DL (74-106); MAGNESIUM LEVEL 1.7 MG/DL (1.8-2.4); POTASSIUM SERUM 3.2 MMOL/L (3.5-5.1); SODIUM LEVEL 144 MMOL/L (136-145)
[2023-04-17] MEDS ORDERED: LIDOCAINE 1% MDV 20ML VIAL As Ordered ONE (08:38)
[2023-04-17] MEDS: levETIRAcetam INJection 750 MG in D5W 100 ML IV SCH (10:12)
[2023-04-17] MEDS: VANICREAM MOISTURIZING SKIN CREAM 113GM TUBE TOP SCH ×2 (10:13→20:58)
[2023-04-17] MEDS: POTASSIUM CHLORIDE 10% LIQ 20MEQ/15ML UDC PO SCH ×2 (10:13→20:57)
[2023-04-17] MEDS ORDERED: FUROSEMIDE 40MG/4ML VIAL IV ONE (10:35)
[2023-04-17] MEDS ORDERED: MAG SULF 1GM/100ML (MAG RUN) 1 GM in IV 1 EA IV SCH (11:00)
[2023-04-17] MEDS: KCL 10MEQ/100ML SWI (KRUN) 10 MEQ in IV 1 EA IV SCH ×2 (13:15→14:32)
[2023-04-17 14:00] VITALS: BP 113/75; TEMP 98.2; O2SAT 92
[2023-04-17] MEDS: ERTAPENEM SODIUM 1 GM in NS MINI-BAG PLUS 50 ML IV SCH (17:13)
[2023-04-18] VITALS (9 sets, daily range): BP systolic 117–146; BP diastolic 74–92; TEMP 97.9–98.6; O2SAT 92–99
[2023-04-18] MEDS: IPRATROPIUM 0.5MG/ALBUTEROL 2.5MG INH SOL UD 3ML (DUONEB) NEB SCH ×4 (01:06→20:25)
[2023-04-18 06:01] LABS: BASO % 0.5 % (0.0-1.0); EOS # 0.1 10^3/uL (0.0-0.5); EOS % 1.6 % (0.0-3.0); HEMATOCRIT 35.8 % (42.0-52.0); HEMOGLOBIN 11.7 g/dl (13.5-17.5); LYMPH # 0.5 10^3/uL (1.5-5.0); LYMPH % 8.9 % (24.0-44.0); MEAN CORPUSCULAR HEMOGLOBIN 30.5 pg (27.0-33.0); MEAN CORPUSCULAR HGB CONC 32.7 g/dl (32.0-36.5); MEAN CORPUSCULAR VOLUME 93.5 fl (80.0-96.0); MONO # 0.4 10^3/uL (0.0-0.8); MONO % 6.9 % (2.0-8.0); NEUTROPHILS # 4.9 10^3/uL (1.5-8.5); NEUTROPHILS % 81.1 % (36.0-66.0); PLATELET COUNT, AUTOMATED 193 10^3/uL (150-450); RED BLOOD COUNT 3.83 10^6/uL (4.30-6.10); WHITE BLOOD COUNT 6.1 10^3/uL (4.0-10.0)
[2023-04-18 06:25] LABS: BLOOD UREA NITROGEN 9 MG/DL (9-23); CALCIUM LEVEL 8.4 MG/DL (8.3-10.6); CARBON DIOXIDE LEVEL 31 MMOL/L (20-31); CHLORIDE LEVEL 107 MMOL/L (98-107); CREATININE FOR GFR 0.78 MG/DL (0.70-1.30); GLOMERULAR FILTRATION RATE > 60.0 (>35); GLUCOSE, FASTING 87 MG/DL (74-106); MAGNESIUM LEVEL 1.9 MG/DL (1.8-2.4); SODIUM LEVEL 145 MMOL/L (136-145)
[2023-04-18] MEDS: POTASSIUM CHLORIDE 10% LIQ 20MEQ/15ML UDC PO SCH ×2 (09:00→20:26)
[2023-04-18] MEDS: VANICREAM MOISTURIZING SKIN CREAM 113GM TUBE TOP SCH ×2 (09:12→21:49)
[2023-04-18] MEDS: levETIRAcetam INJection 750 MG in D5W 100 ML IV SCH (09:12)
[2023-04-18] MEDS ORDERED: KETAMINE HCL 200MG/20ML VIAL As Ordered ONE (12:06)
[2023-04-18] MEDS ORDERED: LR 1,000 ML IV ONE (14:15)
[2023-04-18] MEDS: ERTAPENEM SODIUM 1 GM in NS MINI-BAG PLUS 50 ML IV SCH (16:25)
[2023-04-18] MEDS: D5W/0.45% SODIUM CHLORIDE 1,000 ML IV SCH (16:28)
[2023-04-19] MEDS: IPRATROPIUM 0.5MG/ALBUTEROL 2.5MG INH SOL UD 3ML (DUONEB) NEB SCH ×4 (01:19→19:40)
[2023-04-19 03:00] VITALS: BP 130/81; TEMP 97.2; O2SAT 93
[2023-04-19] MEDS: D5W/0.45% SODIUM CHLORIDE 1,000 ML IV SCH ×2 (03:09→10:15)
[2023-04-19 06:05] LABS: BASO % 0.5 % (0.0-1.0); EOS # 0.1 10^3/uL (0.0-0.5); EOS % 1.7 % (0.0-3.0); HEMATOCRIT 33.9 % (42.0-52.0); HEMOGLOBIN 11.2 g/dl (13.5-17.5); LYMPH # 0.5 10^3/uL (1.5-5.0); LYMPH % 7.3 % (24.0-44.0); MEAN CORPUSCULAR HEMOGLOBIN 30.9 pg (27.0-33.0); MEAN CORPUSCULAR VOLUME 93.6 fl (80.0-96.0); MONO # 0.4 10^3/uL (0.0-0.8); MONO % 6.1 % (2.0-8.0); NEUTROPHILS # 5.5 10^3/uL (1.5-8.5); NEUTROPHILS % 83.5 % (36.0-66.0); PLATELET COUNT, AUTOMATED 190 10^3/uL (150-450); RED BLOOD COUNT 3.62 10^6/uL (4.30-6.10); WHITE BLOOD COUNT 6.6 10^3/uL (4.0-10.0)
[2023-04-19 06:39] LABS: BLOOD UREA NITROGEN 7 MG/DL (9-23); CALCIUM LEVEL 8.3 MG/DL (8.3-10.6); CARBON DIOXIDE LEVEL 34 MMOL/L (20-31); CHLORIDE LEVEL 106 MMOL/L (98-107); CREATININE FOR GFR 0.75 MG/DL (0.70-1.30); GLOMERULAR FILTRATION RATE > 60.0 (>35); GLUCOSE, FASTING 103 MG/DL (74-106); MAGNESIUM LEVEL 1.7 MG/DL (1.8-2.4); POTASSIUM SERUM 3.1 MMOL/L (3.5-5.1); SODIUM LEVEL 144 MMOL/L (136-145)
[2023-04-19 07:00] VITALS: BP_SYST 131; BP_SYST 134; BP_DIAS 81; TEMP 98.4; TEMP 99.3; O2SAT 95
[2023-04-19] MEDS ORDERED: guaiFENesin ER TABLET 600 MG TAB PO SCH (09:00)
[2023-04-19] MEDS: POTASSIUM CHLORIDE 10% LIQ 20MEQ/15ML UDC PO SCH ×2 (09:00→21:00)
[2023-04-19] MEDS: levETIRAcetam INJection 750 MG in D5W 100 ML IV SCH (10:15)
[2023-04-19] MEDS: VANICREAM MOISTURIZING SKIN CREAM 113GM TUBE TOP SCH ×2 (10:17→21:31)
[2023-04-19 11:00] VITALS: BP 129/82; TEMP 98.4; O2SAT 98
[2023-04-19 15:00] VITALS: BP 127/81; TEMP 99; O2SAT 95
[2023-04-19] MEDS: SCOPOLAMINE 1MG TRANSDERMAL PATCH TOP SCH (15:38)
[2023-04-19] MEDS ORDERED: ATROPINE SULFATE 1% OPHTH SOLN 2ML BTL SL ONE (16:00)
[2023-04-19] MEDS: ERTAPENEM SODIUM 1 GM in NS MINI-BAG PLUS 50 ML IV SCH (16:17)
[2023-04-19] MEDS ORDERED: guaiFENesin SYRUP 200MG 10ML UDC PO PRN (20:20)
[2023-04-19 22:51] VITALS: BP 121/77; TEMP 98.2; O2SAT 93
[2023-04-20] VITALS (12 sets, daily range): BP systolic 99–128; BP diastolic 63–83; TEMP 97–98.8; O2SAT 92–100
[2023-04-20] MEDS: IPRATROPIUM 0.5MG/ALBUTEROL 2.5MG INH SOL UD 3ML (DUONEB) NEB SCH ×4 (01:19→19:21)
[2023-04-20 06:16] LABS: BASO % 0.4 % (0.0-1.0); EOS # 0.1 10^3/uL (0.0-0.5); EOS % 1.3 % (0.0-3.0); HEMATOCRIT 35.9 % (42.0-52.0); HEMOGLOBIN 11.4 g/dl (13.5-17.5); LYMPH # 0.4 10^3/uL (1.5-5.0); LYMPH % 6.5 % (24.0-44.0); MEAN CORPUSCULAR HEMOGLOBIN 29.7 pg (27.0-33.0); MEAN CORPUSCULAR HGB CONC 31.8 g/dl (32.0-36.5); MEAN CORPUSCULAR VOLUME 93.5 fl (80.0-96.0); MONO # 0.3 10^3/uL (0.0-0.8); MONO % 4.9 % (2.0-8.0); NEUTROPHILS # 5.8 10^3/uL (1.5-8.5); PLATELET COUNT, AUTOMATED 183 10^3/uL (150-450); RED BLOOD COUNT 3.84 10^6/uL (4.30-6.10); WHITE BLOOD COUNT 6.8 10^3/uL (4.0-10.0)
[2023-04-20 06:47] LABS: BLOOD UREA NITROGEN 8 MG/DL (9-23); CALCIUM LEVEL 8.4 MG/DL (8.3-10.6); CARBON DIOXIDE LEVEL 33 MMOL/L (20-31); CHLORIDE LEVEL 104 MMOL/L (98-107); CREATININE FOR GFR 0.71 MG/DL (0.70-1.30); GLOMERULAR FILTRATION RATE > 60.0 (>35); GLUCOSE, FASTING 89 MG/DL (74-106); MAGNESIUM LEVEL 1.7 MG/DL (1.8-2.4); POTASSIUM SERUM 2.8 MMOL/L (3.5-5.1); SODIUM LEVEL 143 MMOL/L (136-145)
[2023-04-20] MEDS ORDERED: APIXABAN 5 MG TAB (ELIQUIS) PEG SCH (09:00)
[2023-04-20] MEDS: POTASSIUM CHLORIDE 10% LIQ 20MEQ/15ML UDC PO SCH ×3 (09:53→14:00)
[2023-04-20] MEDS: levETIRAcetam INJection 750 MG in D5W 100 ML IV SCH (09:53)
[2023-04-20] MEDS: VANICREAM MOISTURIZING SKIN CREAM 113GM TUBE TOP SCH ×2 (09:54→22:34)
[2023-04-20] MEDS ORDERED: LORazepam 2 MG/ML 1ML VIAL IV PRN ×3 (12:20→14:45)
[2023-04-20] MEDS ORDERED: MAG SULF 1GM/100ML (MAG RUN) 1 GM in IV 1 EA IV ONE ×2 (13:00→17:00)
[2023-04-20] MEDS ORDERED: levETIRAcetam INJection 500 MG in D5W MINI-BAG PLUS 100 ML IV ONE ×2 (13:00→15:00)
[2023-04-20] MEDS ORDERED: LORazepam 2 MG/ML 1ML VIAL IV STA ×2 (14:08→14:26)
[2023-04-20 14:34] LABS: ABG BASE EXCESS 6.1 (-2.0-2.0); ABG HCO3 29.7 MMOL/L (22.0-26.0); ABG O2 SATURATION 95.9 % (95.0-99.0); ABG PARTIAL PRESSURE CO2 38.9 mmHg (35.0-45.0); ABG PARTIAL PRESSURE O2 78.4 mmHg (75.0-100.0); ABG TOTAL CO2 30.8 MMOL/L (23.0-31.0)
[2023-04-20 16:38] LABS: ALBUMIN 1.8 G/DL (3.2-5.2); ALKALINE PHOSPHATASE 63 U/L (46-116); ALT/SGPT 11 U/L (7.0-40); AST/SGOT 15 U/L (<34); BILIRUBIN,TOTAL 0.6 MG/DL (0.3-1.2); BLOOD UREA NITROGEN 7 MG/DL (9-23); CALCIUM LEVEL 8.2 MG/DL (8.3-10.6); CARBON DIOXIDE LEVEL 32 MMOL/L (20-31); CHLORIDE LEVEL 106 MMOL/L (98-107); CREATININE FOR GFR 0.67 MG/DL (0.70-1.30); GLOMERULAR FILTRATION RATE > 60.0 (>35); GLUCOSE, FASTING 109 MG/DL (74-106); POTASSIUM SERUM 3.8 MMOL/L (3.5-5.1); SODIUM LEVEL 141 MMOL/L (136-145); TOTAL PROTEIN 5.3 G/DL (5.7-8.2)
[2023-04-20] MEDS ORDERED: KCL 10MEQ/100ML SWI (KRUN) 10 MEQ in IV 1 EA IV SCH (18:00)
[2023-04-20] MEDS ORDERED: KCL 10MEQ/100ML SWI (KRUN) 10 MEQ in IV 1 EA IV ONE ×2 (18:00→20:00)
[2023-04-20] MEDS ORDERED: CALCIUM GLUCONATE 1,000 MG in D5W MINI-BAG PLUS 100 ML IV ONE (19:00)
[2023-04-20 19:30] LABS: IONIZED CALCIUM 4.7 MG/DL (4.5-5.3)
[2023-04-20 20:05] LABS: MAGNESIUM LEVEL 2.3 MG/DL (1.8-2.4); POTASSIUM SERUM 3.4 MMOL/L (3.5-5.1)
[2023-04-20 20:07] LABS: CK-MB VALUE MASS < 1.0 NG/ML (<3.6)
[2023-04-20 20:08] LABS: CPK CREATINE PHOSPHOKINASE 37 U/L (46-171)
[2023-04-20 20:52] LABS: ABG HCO3 27.6 MMOL/L (22.0-26.0); ABG O2 SATURATION 95.9 % (95.0-99.0); ABG PARTIAL PRESSURE CO2 42.4 mmHg (35.0-45.0); ABG PARTIAL PRESSURE O2 81.3 mmHg (75.0-100.0); ABG STANDARD HCO3 27.1 MMOL/L. (22.0-26.0); ABG TOTAL CO2 28.9 MMOL/L (23.0-31.0); ABG pH (ARTERIAL) 7.432 UNITS (7.350-7.450)
[2023-04-20] MEDS: levETIRAcetam INJection 1,000 MG in D5W 100 ML IV SCH (22:05)
[2023-04-20] MEDS: KCL 40MEQ IN D5/0.45NS 1000ML 1,000 ML IV SCH (23:43)
[2023-04-20] MEDS: METOPROLOL 5 MG/5 ML VIAL IV SCH (23:45)
[2023-04-21] VITALS (28 sets, daily range): BP systolic 110–130; BP diastolic 57–78; TEMP 97.1–98.2; O2SAT 92–100
[2023-04-21] MEDS: ENOXAPARIN 60MG/0.6ML SYRINGE (J1650 PER 10MG) SC SCH ×2 (00:22→14:48)
[2023-04-21] MEDS: IPRATROPIUM 0.5MG/ALBUTEROL 2.5MG INH SOL UD 3ML (DUONEB) NEB SCH ×4 (01:43→20:00)
[2023-04-21 01:56] LABS: IONIZED CALCIUM 4.8 MG/DL (4.5-5.3)
[2023-04-21 02:24] LABS: CK-MB VALUE MASS < 1.0 NG/ML (<3.6)
[2023-04-21 02:25] LABS: BLOOD UREA NITROGEN 7 MG/DL (9-23); CALCIUM LEVEL 8.5 MG/DL (8.3-10.6); CARBON DIOXIDE LEVEL 31 MMOL/L (20-31); CHLORIDE LEVEL 105 MMOL/L (98-107); CPK CREATINE PHOSPHOKINASE 35 U/L (46-171); CREATININE FOR GFR 0.65 MG/DL (0.70-1.30); GLOMERULAR FILTRATION RATE > 60.0 (>35); GLUCOSE, FASTING 119 MG/DL (74-106); MAGNESIUM LEVEL 2.1 MG/DL (1.8-2.4); MB/CK RELATIVE INDEX 2.85 (< OR =4); POTASSIUM SERUM 3.7 MMOL/L (3.5-5.1); SODIUM LEVEL 138 MMOL/L (136-145)
[2023-04-21] MEDS: METOPROLOL 5 MG/5 ML VIAL IV SCH ×4 (05:04→23:44)
[2023-04-21 06:53] LABS: BASO % 0.5 % (0.0-1.0); EOS # 0.1 10^3/uL (0.0-0.5); HEMATOCRIT 34.3 % (42.0-52.0); HEMOGLOBIN 11.1 g/dl (13.5-17.5); LYMPH # 0.5 10^3/uL (1.5-5.0); LYMPH % 8.1 % (24.0-44.0); MEAN CORPUSCULAR HEMOGLOBIN 30.4 pg (27.0-33.0); MEAN CORPUSCULAR HGB CONC 32.4 g/dl (32.0-36.5); MONO # 0.4 10^3/uL (0.0-0.8); MONO % 5.4 % (2.0-8.0); NEUTROPHILS # 5.5 10^3/uL (1.5-8.5); NEUTROPHILS % 83.2 % (36.0-66.0); PLATELET COUNT, AUTOMATED 172 10^3/uL (150-450); RED BLOOD COUNT 3.65 10^6/uL (4.30-6.10); WHITE BLOOD COUNT 6.5 10^3/uL (4.0-10.0)
[2023-04-21 07:31] LABS: BLOOD UREA NITROGEN 7 MG/DL (9-23); CALCIUM LEVEL 8.7 MG/DL (8.3-10.6); CARBON DIOXIDE LEVEL 30 MMOL/L (20-31); CHLORIDE LEVEL 103 MMOL/L (98-107); CREATININE FOR GFR 0.66 MG/DL (0.70-1.30); GLOMERULAR FILTRATION RATE > 60.0 (>35); GLUCOSE, FASTING 111 MG/DL (74-106); POTASSIUM SERUM 3.9 MMOL/L (3.5-5.1); SODIUM LEVEL 138 MMOL/L (136-145)
[2023-04-21] MEDS: levETIRAcetam INJection 1,000 MG in D5W 100 ML IV SCH ×2 (09:34→21:18)
[2023-04-21] MEDS: SCOPOLAMINE 1MG TRANSDERMAL PATCH TOP SCH (09:34)
[2023-04-21] MEDS: VANICREAM MOISTURIZING SKIN CREAM 113GM TUBE TOP SCH ×2 (09:35→21:18)
[2023-04-21] MEDS: KCL 40MEQ IN D5/0.45NS 1000ML 1,000 ML IV SCH (14:48)
[2023-04-22] VITALS (8 sets, daily range): BP systolic 118; BP diastolic 66; TEMP 97.8; O2SAT 95–97
[2023-04-22] MEDS: ENOXAPARIN 60MG/0.6ML SYRINGE (J1650 PER 10MG) SC SCH (00:59)
[2023-04-22] MEDS: IPRATROPIUM 0.5MG/ALBUTEROL 2.5MG INH SOL UD 3ML (DUONEB) NEB SCH (01:05)
[2023-04-22] MEDS: KCL 40MEQ IN D5/0.45NS 1000ML 1,000 ML IV SCH (04:20)
[2023-04-22] MEDS: METOPROLOL 5 MG/5 ML VIAL IV SCH (05:58)
[2023-04-22 06:08] LABS: BASO % 0.7 % (0.0-1.0); EOS # 0.1 10^3/uL (0.0-0.5); EOS % 2.1 % (0.0-3.0); HEMATOCRIT 30.7 % (42.0-52.0); LYMPH # 0.5 10^3/uL (1.5-5.0); LYMPH % 9.1 % (24.0-44.0); MEAN CORPUSCULAR HGB CONC 32.6 g/dl (32.0-36.5); MONO # 0.3 10^3/uL (0.0-0.8); MONO % 5.6 % (2.0-8.0); NEUTROPHILS # 4.7 10^3/uL (1.5-8.5); NEUTROPHILS % 81.6 % (36.0-66.0); PLATELET COUNT, AUTOMATED 176 10^3/uL (150-450); RED BLOOD COUNT 3.23 10^6/uL (4.30-6.10); WHITE BLOOD COUNT 5.7 10^3/uL (4.0-10.0)
[2023-04-22 06:38] LABS: BLOOD UREA NITROGEN 8 MG/DL (9-23); CALCIUM LEVEL 8.2 MG/DL (8.3-10.6); CARBON DIOXIDE LEVEL 32 MMOL/L (20-31); CHLORIDE LEVEL 106 MMOL/L (98-107); CREATININE FOR GFR 0.76 MG/DL (0.70-1.30); GLOMERULAR FILTRATION RATE > 60.0 (>35); GLUCOSE, FASTING 99 MG/DL (74-106); POTASSIUM SERUM 4.5 MMOL/L (3.5-5.1); SODIUM LEVEL 140 MMOL/L (136-145)
[2023-04-22] MEDS ORDERED: MORPHINE 10MG/0.5ML ORAL CONCENTRATE SOLUTION U/D SL PRN (07:55)
[2023-04-22] MEDS ORDERED: HYOSCYAMINE SULFATE 0.125 MG SUBL TABLET PO PRN (07:55)
[2023-04-22] MEDS ORDERED: IPRATROPIUM 0.5MG/ALBUTEROL 2.5MG INH SOL UD 3ML (DUONEB) NEB PRN (08:20)
[2023-04-22] MEDS: levETIRAcetam ORAL SOLUTION 500MG/5ML UDC GT SCH ×2 (10:04→20:59)
[2023-04-23] MEDS: ATROPINE SULFATE 1% OPHTH SOLN 2ML BTL SL PRN ×3 (05:19→20:10)
[2023-04-23] MEDS: levETIRAcetam ORAL SOLUTION 500MG/5ML UDC GT SCH (08:24)
[2023-04-23] MEDS: LORazepam 2 MG/ML 1ML VIAL IV PRN ×2 (10:07→14:20)
[2023-04-23] MEDS ORDERED: diazePAM 2 MG TAB PEG ONE (10:40)
[2023-04-23] MEDS ORDERED: levETIRAcetam ORAL SOLUTION 500MG/5ML UDC GT ONE (12:00)
[2023-04-23] MEDS ORDERED: ATIV1TAB10 PO (15:03)
[2023-04-23] MEDS ORDERED: MORP1SOL5 PO (15:03)
[2023-04-23] MEDS ORDERED: TRAN1DIS4 TOP (15:04)
[2023-04-23] MEDS ORDERED: HYOS125TA PO (15:04)
[2023-04-23] MEDS: MORPHINE 2 MG/ML 1ML VIAL IV PRN ×2 (16:40→20:04)
[2023-04-24] MEDS: levETIRAcetam ORAL SOLUTION 500MG/5ML UDC GT SCH ×2 (00:03→08:19)
[2023-04-24] MEDS ORDERED: ATIV2TAB PEG ×2 (07:49→07:51)
[2023-04-24] MEDS ORDERED: LEVE15SO2 GT (07:49)
[2023-04-24] MEDS ORDERED: diazePAM 2 MG TAB PEG ONE (09:00)
[2023-04-24] MEDS: SCOPOLAMINE 1MG TRANSDERMAL PATCH TOP SCH (09:49)
== END 2023-04-24 11:20 | disposition hospice, inpatient (51) | DRG 143 ==
LOC: M ED 21:08 → EDBD 21:08 → M ED INP 04-11 03:05 → ENRESERV 04-11 16:36 → M MSPAV 04-11 17:24 → M PCU 04-20 13:55 → M MSPAV 04-23 12:29
PROVIDERS: ADMIT Internal Medicine; ATTEND General Practice
PROC: 0CB7XZX Excision of Tongue, External Approach, Diagnostic (ICD-10-PCS; 2023-04-13)
PROC: 07B23ZX Excision of Left Neck Lymphatic, Percutaneous Approach, Diagnostic (ICD-10-PCS; principal; 2023-04-17 09:00)
PROC: 0DH68UZ Insertion of Feeding Device into Stomach, Via Natural or Artificial Opening Endoscopic (ICD-10-PCS; 2023-04-18)
DX: C02.3 Malignant neoplasm of anterior two-thirds of tongue, part unspecified (principal); J96.01 Acute respiratory failure with hypoxia; J69.0 Pneumonitis due to inhalation of food and vomit; G93.41 Metabolic encephalopathy; N39.0 Urinary tract infection, site not specified; J90 Pleural effusion, not elsewhere classified; I48.20 Chronic atrial fibrillation, unspecified; C77.0 Secondary and unspecified malignant neoplasm of lymph nodes of head, face and neck; K21.9 Gastro-esophageal reflux disease without esophagitis; E78.5 Hyperlipidemia, unspecified; N40.0 Benign prostatic hyperplasia without lower urinary tract symptoms; R13.12 Dysphagia, oropharyngeal phase; I10 Essential (primary) hypertension; Z51.5 Encounter for palliative care; Z66 Do not resuscitate; I89.0 Lymphedema, not elsewhere classified; G62.9 Polyneuropathy, unspecified; B96.20 Unspecified Escherichia coli [E. coli] as the cause of diseases classified elsewhere; I27.20 Pulmonary hypertension, unspecified; G40.409 Other generalized epilepsy and epileptic syndromes, not intractable, without status epilepticus; Z90.49 Acquired absence of other specified parts of digestive tract; Z93.3 Colostomy status; Z87.891 Personal history of nicotine dependence; Z79.899 Other long term (current) drug therapy; Z79.01 Long term (current) use of anticoagulants; Z92.21 Personal history of antineoplastic chemotherapy; Z95.0 Presence of cardiac pacemaker; Z85.038 Personal history of other malignant neoplasm of large intestine; Z92.3 Personal history of irradiation

== ENCOUNTER 2023-04-17 10:49 | Outpatient (RCR) | payer MEDICARE, OTHER ==
[~2023-04-17 10:49] MED LIST changes: +ACET-907 PO; +CERA355L TOP; +FLEEENE12 PR; +JUVE1POW PO; +LACT237L59 PO; +MILKSUS3 PO; +OMEP1CAP73 PO; +POTA10TA67 PO; +TRAN1DIS4 TOP
[2023-04-18] MEDS ORDERED: LIDOCAINE 1% SDV 30ML VIAL As Ordered ONE (12:08)
[2023-04-23] MEDS ORDERED: ATIV1TAB10 PO (15:03)
[2023-04-23] MEDS ORDERED: MORP1SOL5 PO (15:03)
[2023-04-23] MEDS ORDERED: HYOS125TA PO (15:04)
[2023-04-23] MEDS ORDERED: TRAN1DIS4 TOP (15:04)
[2023-04-24] MEDS ORDERED: LEVE15SO2 GT (07:49)
[2023-04-24] MEDS ORDERED: ATIV2TAB PEG ×2 (07:49→07:51)
== END 2023-04-30 ==
LOC: M ONCR 10:49
PROVIDERS: ATTEND General Practice
DX: Z51.0 Encounter for antineoplastic radiation therapy (principal); C02.0 Malignant neoplasm of dorsal surface of tongue

== ENCOUNTER → 2023-04-23 | Outpatient (REF) | payer MEDICARE, OTHER ==
[~2023-04-23] MED LIST changes: +ATIV1TAB10 PO; +ATIV2TAB PEG; +HYOS125TA PO; +LEVE15SO2 GT; +MORP1SOL5 PO
== END ==
LOC: EEVIPCON
PROVIDERS: ATTEND Internal Medicine
DX: I48.91 Unspecified atrial fibrillation (principal); Z53.8 Procedure and treatment not carried out for other reasons